=== PATIENT | female | born 1985 | race African-American/Black ===

== ENCOUNTER 2018-01-22 07:54 | Emergency (ER) | payer SELFPAY ==
[2018-01-22 08:39] LABS: Absolute Monocytes 0.6 K/uL (0.1-1.3); Absolute Neutrophil 9.1 K/uL (1.8-8.0); Basophils % 0.5 % (0-1.3); Eosinophils % 0.1 % (0-4.4); Hematocrit 40.3 % (36.0-45.0); Lymphocytes % 9.4 % (15.3-44.8); MCH 28.5 pg (27.0-35.0); MCV 86.7 fL (80-100); MPV 9.9 fL (7.6-11.3); Monocytes % 5.9 % (3.3-12.3); RBC Red Blood Cell Count 4.64 M/uL (3.86-4.86)
[2018-01-22] MEDS ORDERED: FENTANYL CITR 100 MCG/2 ML ONE (08:43)
[2018-01-22] MEDS ORDERED: NA CHLORIDE 0.9% 1,000 ML ONE (08:44)
[2018-01-22 08:53] LABS: Urine Blood NEGATIVE (NEG); Urine Glucose NEGATIVE (NEG); Urine Protein NEGATIVE (NEG)
[2018-01-22 08:55] LABS: Bicarbonate 21 mEq/L (21-31); Glucose Level 119 mg/dL (65-120); Lipase 20 U/L (22-51); Potassium 4.2 mEq/L (3.6-5.0); Sodium Level 135 mEq/L (135-145)
[2018-01-22 09:01] LABS: ALT/SGPT 57 IU/L (10-60); AST/SGOT 35 IU/L (10-42); Alkaline Phosphatase 39 IU/L (42-121); BUN Blood Urea Nitrogen 12 mg/dL (6-20); Bilirubin Direct 0.1 mg/dL (0-0.2); Bilirubin Total 0.5 mg/dL (0.3-1.2); Glomerular Filtration Rate > 90 mL/min (=/>90); Protein, Total 7.8 g/dL (6.0-8.3)
[2018-01-22] MEDS ORDERED: ONDANSETRON 4 MG/2 ML VIAL ONE (09:24)
[2018-01-22 09:58] LABS: Urine Bacteria <20 /HPF (<20); Urine Culture Reflex Order NOT NEEDED; Urine RBC NONE SEEN /HPF (NONE SEEN)
--- NOTE | 2018-01-22 10:20 | RAD REPORT ---
EXAM DESCRIPTION: CT - Angio Aorta For Dissection - 01/22/2018 9:50 am CLINICAL HISTORY: Chest pain, epigastric pain, nausea COMPARISON: None. TECHNIQUE: Dynamically enhanced 3 mm thick images of the chest, abdomen, and upper pelvis were obtai faith during administration of approximately 150mL Isovue 370 IV contrast. Sagittal and coronal reconst ruction images were generated and reviewed. Exam utilizes a protocol to evaluate entire course of the aorta. All CT scans are performed using dose optimization technique as appropriate and may include automated exposure control or mA/KV adjustment according to patient size. FINDINGS: Aorta is normal in diameter with no dissection or other acute aortic findings. Reconstruct ion images show no significant findings. No pulmonary artery abnormality seen. No cardiomegaly, pericardial thickening or pericardial effusion . No mass or infiltrate in the lung parenchyma. No pleural thickening, pleural effusion or pneumothorax . No abnormal mediastinal or hilar mass or lymphadenopathy seen. No chest wall mass or abnormal axillar y lymphadenopathy. Celiac, SMA and renal arteries show no suspicious findings. Liver shows a fatty infiltration pattern but no focal liver lesion identified. The spleen, pancreas, gallbladder, biliary tree, adrenal glands and kidneys are unremarkable. Gallstones can be occult. No suspicion for an active gallbladder proce ss. No mass or abnormal lymphadenopathy. No free air, pneumatosis or focal inflammatory stranding. No dilated bowel or focal bowel wall thickening. Acute appendicitis is not suspected. There is a trac e amount of fluid adjacent to the right ovary and tip of the appendix. This may be a leaking right ov megha cysts. Appendicitis is not suspected. Uterus and left ovary show no significant finding. No uri nary bladder abnormality. No acute bone findings seen. IMPRESSION: Negative CT scan of the aorta. No significant finding in the chest. Fatty infiltration of the liver. No acute process identifiable in the gallbladder or solid abdominal visceral. Trace amount of fluid adjacent to the right ovary is probably from a leaking ovarian cyst. Appendicit is is not suspected.
--- NOTE | 2018-01-22 10:55 | EDPHYS ---
Physician Documentation [facility] Name: Larry Morton Age: 32 yrs Sex: Female : 1985 Arrival Date: 01/22/2018 Time: 07:55 Bed 5 Private MD: Dakota Soria V ED Physician Gerardo Benavidez HPI: 01/22 10:51 This 32 yrs old Black Female presents to ER via Ambulatory with complaints of Abdominal gs Pain, Chest Pain. 10:51 The patient or guardian reports chest pain that is located primarily in the substernal gs area. The pain radiates to abdomen. Associated signs and symptoms: Pertinent positives: shortness of breath. The chest pain is described as sharp. Duration: The patient or guardian reports a single episode, that is still ongoing. Modifying factors: The symptoms are alleviated by nothing. the symptoms are aggravated by nothing. Severity of pain: At its worst the pain was severe in the emergency department the pain is unchanged. The patient has experienced similar episodes in the past, several times. Historical: - Allergies: 08:04 No Known Allergies; ss - Home Meds: 08:04 None [Active]; ss - PMHx: 08:04 None; ss - PSHx: 08:04 None; ss - Social history:: Smoking status: Patient/guardian denies using tobacco. ROS: 10:51 All other systems are negative. gs Exam: 10:51 Head/Face: Normocephalic, atraumatic. Eyes: Pupils equal round and reactive to light, gs extra-ocular motions intact. Lids and lashes normal. Conjunctiva and sclera are non-icteric and not injected. Cornea within normal limits. Periorbital areas with no swelling, redness, or edema. ENT: Nares patent. No nasal discharge, no septal abnormalities noted. Tympanic membranes are normal and external auditory canals are clear. Oropharynx with no redness, swelling, or masses, exudates, or evidence of obstruction, uvula midline. Mucous membranes moist. Neck: Trachea midline, no thyromegaly or masses palpated, and no cervical lymphadenopathy. Supple, full range of motion without nuchal rigidity, or vertebral point tenderness. No Meningismus. Chest/axilla: Normal chest wall appearance and motion. Nontender with no deformity. No lesions are appreciated. Respiratory: Lungs have equal breath sounds bilaterally, clear to auscultation and percussion. No rales, rhonchi or wheezes noted. No increased work of breathing, no retractions or nasal flaring. Back: No spinal tenderness. No costovertebral tenderness. Full range of motion. Skin: Warm, dry with normal turgor. Normal color with no rashes, no lesions, and no evidence of cellulitis. MS/ Extremity: Pulses equal, no cyanosis. Neurovascular intact. Full, normal range of motion. Neuro: Awake and alert, GCS 15, oriented to person, place, time, and situation. Cranial nerves II-XII grossly intact. Motor strength 5/5 in all extremities. Sensory grossly intact. Cerebellar exam normal. Normal gait. 10:51 Constitutional: The patient appears alert, awake. 10:51 Cardiovascular: Rate: tachycardic, Rhythm: regular, Pulses: no pulse deficits are appreciated, Heart sounds: normal, Edema: is not appreciated. 10:51 ECG was reviewed by the Attending Physician. 10:51 Abdomen/GI: Inspection: abdomen appears normal, Palpation: moderate abdominal tenderness, in the right upper quadrant and left upper quadrant. Vital Signs: 08:04 BP 142 / 116; Pulse 136; Resp 22; Temp 99.6(O); Pulse Ox 100% on R/A; Weight 130.63 kg; ss Height 5 ft. 4 in. (162.56 cm); Pain 10/10; 08:08 BP 117 / 71; Pulse 130; ss 09:00 BP 126 / 76; Pulse 100; Resp 18; Pulse Ox 100% on R/A; Pain 5/10; hb 10:04 BP 125 / 85; Pulse 102; Resp 17; Pulse Ox 100% on R/A; hb 08:04 Body Mass Index 49.43 (130.63 kg, 162.56 cm) MDM: 08:09 Patient medically screened. 10:51 Differential diagnosis: coronary artery disease pancreatitis, pericarditis, pneumonia, gs thoracic aortic disection. Data reviewed: vital signs, nurses notes. Response to treatment: the patient's symptoms have markedly improved after treatment, the patient's symptoms have resolved after treatment, and as a result, I will discharge patient. 01/22 08:10 Order name: Basic Metabolic Panel; Complete Time: 10:11 01/22 08:10 Order name: CBC with Diff; Complete Time: 10:11 01/22 08:10 Order name: Hepatic Function; Complete Time: 10: 01/22 08:10 Order name: Lipase; Complete Time: 10: 01/22 08:10 Order name: Urine Microscopic Only; Complete Time: 10: 01/22 08:10 Order name: Troponin (emerg Dept Use Only); Complete Time: 10: 01/22 08:10 Order name: Urine Test (obtain specimen); Complete Time: 08:38 01/22 08:10 Order name: IV Saline Lock; Complete Time: 08:38 01/22 08:10 Order name: CT Aorta for Dissection; Complete Time: 10:29 gs 01/22 08:37 Order name: Urine Dipstick--Ancillary (enter results); Complete Time: 10: 01/22 08:37 Order name: Urine --Ancillary (enter results); Complete Time: 10: 01/22 09:14 Order name: EKG Electrocardiogram; Complete Time: 10: [facility] 01/22 08:10 Order name: Labs collected and sent; Complete Time: 08:39 01/22 08:10 Order name: Urine Dipstick-Ancillary (obtain specimen); Complete Time: 08:39 gs EC:51 Rate is 116 beats/min. Rhythm is regular, Sinus tachycardia. QRS interval is normal. QT gs interval is normal. T waves are Flattened. No ST changes noted. Clinical impression: Abnormal EKG without significant change. Interpreted by me. Administered Medications: 08:26 Drug: fentaNYL (PF) 50 mcg Route: IVP; Site: right antecubital; hb 09:00 Follow up: Response: No adverse reaction hb 08:26 Drug: NS 0.9% 1000 ml Route: IV; Rate: 1 bolus; Site: right antecubital; hb Disposition: 01/22/18 10:54 Discharged to Home. Impression: Chest pain, unspecified, Abdominal and pelvic pain. - Condition is Stable. - Discharge Instructions: Nonspecific Chest Pain, Abdominal Pain, Adult, Fviy-oh-Iyug. - Medication Reconciliation Form, Thank You Letter, Antibiotic Education, Prescription Opioid Use form. - Follow up: Private Physician; When: 2 - 3 days; Reason: Re-evaluation by your physician. Signatures: Dispatcher [employer] EDBianca Ward, RN RN ss Gale Meléndez, RN RN Gerardo Garza MD MD gs
--- NOTE | 2018-01-22 10:55 | ER ---
Nurse's Notes [facility] Name: Larry Morton Age: 32 yrs Sex: Female : 1985 Arrival Date: 01/22/2018 Time: 07:55 Bed 5 Private MD: Dakota Soria V Diagnosis: Chest pain, unspecified;Abdominal and pelvic pain Presentation: 01/22 08:03 Presenting complaint: Patient states: severe epigastric discomfort that radiates up ss into chest that began at 0200 this morning with nausea. Transition of care: patient was not received from another setting of care. Onset of symptoms was January 22, 2018. Care prior to arrival: None. 08:03 Method Of Arrival: Ambulatory ss 08:03 Acuity: CELESTINO 2 ss Historical: - Allergies: 08:04 No Known Allergies; ss - Home Meds: 08:04 None [Active]; ss - PMHx: 08:04 None; ss - PSHx: 08:04 None; ss - Social history:: Smoking status: Patient/guardian denies using tobacco. Screenin:20 Abuse screen: Denies threats or abuse. Denies injuries from another. Nutritional hb screening: No deficits noted. Tuberculosis screening: No symptoms or risk factors identified. Fall Risk None identified. Assessment: 08:20 General: Appears in no apparent distress. uncomfortable, Behavior is calm, cooperative. hb Pain: Pain currently is 7 out of 10 on a pain scale. Neuro: Level of Consciousness is awake, alert, obeys commands, Oriented to person, place, time, situation. Cardiovascular: Capillary refill < 3 seconds Patient's skin is warm and dry. Respiratory: Airway is patent Respiratory effort is even, unlabored, Respiratory pattern is regular, symmetrical, Breath sounds are clear bilaterally. GI: Abdomen is obese, Bowel sounds present X 4 quads. Abd is soft and non tender X 4 quads. Reports lower abdominal pain, upper abdominal pain. : No signs and/or symptoms were reported regarding the genitourinary system. EENT: No signs and/or symptoms were reported regarding the EENT system. Derm: No signs and/or symptoms reported regarding the dermatologic system. Skin is pink, warm \T\ dry. Musculoskeletal: No signs and/or symptoms reported regarding the musculoskeletal system. 09:20 Reassessment: Patient appears in no apparent distress at this time. Patient and/or hb family updated on plan of care and expected duration. Pain level reassessed. Patient is alert, oriented x 3, equal unlabored respirations, skin warm/dry/pink. 10:09 Reassessment: Patient appears in no apparent distress at this time. No changes from hb previously documented assessment. Patient and/or family updated on plan of care and expected duration. Pain level reassessed. Patient is alert, oriented x 3, equal unlabored respirations, skin warm/dry/pink. Vital Signs: 08:04 BP 142 / 116; Pulse 136; Resp 22; Temp 99.6(O); Pulse Ox 100% on R/A; Weight 130.63 kg; ss Height 5 ft. 4 in. (162.56 cm); Pain 10/10; 08:08 BP 117 / 71; Pulse 130; ss 09:00 BP 126 / 76; Pulse 100; Resp 18; Pulse Ox 100% on R/A; Pain 5/10; hb 10:04 BP 125 / 85; Pulse 102; Resp 17; Pulse Ox 100% on R/A; hb 08:04 Body Mass Index 49.43 (130.63 kg, 162.56 cm) ED Course: 07:55 Patient arrived in ED. as 07:55 Dakota Soria MD is Private Physician. as 08:00 Gerardo Benavidez MD is Attending Physician. gs 08:04 Triage completed. ss 08:04 Arm band placed on right wrist. ss 08:20 Patient has correct armband on for positive identification. Placed in gown. Bed in low hb position. Call light in reach. Side rails up X 1. 08:20 Inserted saline lock: 20 gauge in right antecubital area, using aseptic technique. hb Blood collected. 08:22 Gale Meléndez, RN is Primary Nurse. hb 09:48 CT completed. Patient tolerated procedure well. Patient moved to CT via wheelchair. sj Patient moved back from CT. 09:51 CT Aorta for Dissection In Process Unspecified. EDMS Administered Medications: 08:26 Drug: fentaNYL (PF) 50 mcg Route: IVP; Site: right antecubital; hb 09:00 Follow up: Response: No adverse reaction hb 08:26 Drug: NS 0.9% 1000 ml Route: IV; Rate: 1 bolus; Site: right antecubital; hb Outcome: 10:54 Discharge ordered by . 11:20 Patient left the ED. Signatures: Dispatcher [employer] Silvia Noel Amelia as Smirch, Shelby, RN RN Gale Meléndez RN RN hb Starr, Gregory, MD MD gs Corrections: (The following items were deleted from the chart) 08:08 08:03 Acuity: CELESTINO 3 [facility]
[2018-01-22 11:31] VITALS: TEMP 99.6; O2SAT 100
[2018-01-22 11:35] VITALS: BP 125/85
--- NOTE | 2018-01-23 07:39 | EKG ---
Test Date: 2018-01-22 Test Time: 08:08:43 Pharmacist In Charge: RONNELL MEASUREMENT RESULTS: Intervals: Rate: 116 VA: 138 QRSD: 70 QT: 310 QTc: 430 Printer: P: 50 VA: 138 QRS: 32 T: 17 INTERPRETIVE STATEMENTS: Sinus tachycardia Cannot rule out Anterior infarct, age undetermined Abnormal ECG Compared to ECG 03/24/2016 15:13:22 Myocardial infarct finding now present Sinus rhythm no longer present Electronically Signed On 01-23-18 07:35:17 CDT by Bishnu Borrero
== END 2018-01-22 11:20 | disposition home or self-care (01) ==
LOC: ER 07:54
DX: R10.2 Pelvic and perineal pain (principal)
CPT/HCPCS: 36415; 71275; 74175; 80048; 80076; 81003; 81015; 81025; 83690; 84484; 85025; 93005; 96374; 99284; J2405; J3010; J7030; Q9967

== ENCOUNTER 2018-04-10 11:52 | Emergency (ER) | payer SELFPAY ==
[2018-04-10 12:34] LABS: Absolute Lymphocytes (CBC) 1.7 K/uL (0.7-4.9); Absolute Monocytes 0.5 K/uL (0.1-1.3); Absolute Neutrophil 4.1 K/uL (1.8-8.0); Basophils % 0.8 % (0-1.3); Eosinophils % 0.3 % (0-4.4); Hematocrit 39.7 % (36.0-45.0); Lymphocytes % 26.7 % (15.3-44.8); MCH 28.7 pg (27.0-35.0); MCV 88.6 fL (80-100); MPV 9.9 fL (7.6-11.3); Monocytes % 8.4 % (3.3-12.3); RBC Red Blood Cell Count 4.48 M/uL (3.86-4.86)
[2018-04-10 12:42] LABS: Urine Blood TRACE (NEG); Urine Glucose NEGATIVE (NEG); Urine Protein NEGATIVE (NEG); Urine Specific Gravity >1.030 (1.005-1.030); Urine pH 5.5 (5.0-7.0)
--- NOTE | 2018-04-10 13:09 | RAD REPORT ---
EXAM DESCRIPTION: US - Transvaginal OB - 04/10/2018 12:47 pm CLINICAL HISTORY: Positive study, abdominal and pelvic pain and cramping, vaginal bleeding Preliminary findings provided at the time of the study. COMPARISON: No relevant comparison FINDINGS: A very small oval fluid collection is present in the fundal portion of the endometrial cav ity. This is believed to be an early gestational sac. No yolk sac or pole identifiable. Average sac diameter corresponds to a 5 week 2 day age. Within the uterus no mass or hematoma identifiable. No fluid or blood in the cul-de-sac. Cervical canal appears to be closed. A 4.2 centimeter thin-walled anechoic right ovarian cyst is present. No suspicious right adnexal abno rmality. Left ovary is unremarkable. IMPRESSION: Oval fluid collection in the fundal endometrial cavity believed to be a 5 week 2 day ges tational sac. No pole or yolk sac identifiable at this time. A 4.2 centimeter benign right ovarian cyst is present. Follow-up sonography can be performed if beta HCG values show progressive .
[2018-04-10 13:49] LABS: BUN Blood Urea Nitrogen 8 mg/dL (7-18); Bicarbonate 25 mmol/L (21-32); Glucose Level 97 mg/dL (74-106); Potassium 3.8 mmol/L (3.5-5.1); Sodium Level 135 mmol/L (136-145)
--- NOTE | 2018-04-10 13:57 | EDPHYS ---
Physician Documentation [facility] Name: Larry Morton Age: 32 yrs Sex: Female : 1985 Arrival Date: 04/10/2018 Time: 11:55 Bed 20 Private MD: Dakota Soria V ED Physician Jamal Alvarez HPI: 04/10 13:17 This 32 yrs old Black Female presents to ER via Ambulatory with complaints of Abdominal snw Pain - 5WKS PG. 13:18 The patient presents with vaginal bleeding that is spotting. Onset: The snw symptoms/episode began/occurred suddenly, 2 day(s) ago, and improved. Associated signs and symptoms: Pertinent positives: cramping, vaginal bleeding. Severity of symptoms: At their worst the symptoms were mild. The patient is sexually active, reportedly has a single partner. The patient has not experienced similar symptoms in the past. The patient has been recently seen by a physician: Dr. agrawal. 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 - Social history:: Smoking status: Patient/guardian denies using tobacco. - Ebola Screening: : Patient denies exposure to infectious person Patient denies travel to an Ebola-affected area in the 21 days before illness onset. ROS: 13:04 Constitutional: Negative for fever, chills, and weight loss, Eyes: Negative for injury, snw pain, redness, and discharge, ENT: Negative for injury, pain, and discharge, Neck: Negative for injury, pain, and swelling, Cardiovascular: Negative for chest pain, palpitations, and edema, Respiratory: Negative for shortness of breath, cough, wheezing, and pleuritic chest pain, Back: Negative for injury and pain, : Negative for injury, discharge, and swelling, lower suprapubic cramping, sharp in nature with light pink bleeding/spotting. No spotting today. Saw Dr. Agrawal yesterday MS/Extremity: Negative for injury and deformity, Skin: Negative for injury, rash, and discoloration, Neuro: Negative for headache, weakness, numbness, tingling, and seizure. 13:04 Abdomen/GI: Negative for abdominal pain, nausea, vomiting, diarrhea, and constipation. Exam: 13:04 Head/Face: Normocephalic, atraumatic. Eyes: Pupils equal round and reactive to light, snw extra-ocular motions intact. Lids and lashes normal. Conjunctiva and sclera are non-icteric and not injected. Cornea within normal limits. Periorbital areas with no swelling, redness, or edema. ENT: Nares patent. No nasal discharge, no septal abnormalities noted. Tympanic membranes are normal and external auditory canals are clear. Oropharynx with no redness, swelling, or masses, exudates, or evidence of obstruction, uvula midline. Mucous membranes moist. Neck: Trachea midline, no thyromegaly or masses palpated, and no cervical lymphadenopathy. Supple, full range of motion without nuchal rigidity, or vertebral point tenderness. No Meningismus. Chest/axilla: Normal chest wall appearance and motion. Nontender with no deformity. No lesions are appreciated. Cardiovascular: Regular rate and rhythm with a normal S1 and S2. No gallops, murmurs, or rubs. Normal PMI, no JVD. No pulse deficits. Respiratory: Lungs have equal breath sounds bilaterally, clear to auscultation and percussion. No rales, rhonchi or wheezes noted. No increased work of breathing, no retractions or nasal flaring. Back: No spinal tenderness. No costovertebral tenderness. Full range of motion. Skin: Warm, dry with normal turgor. Normal color with no rashes, no lesions, and no evidence of cellulitis. MS/ Extremity: Pulses equal, no cyanosis. Neurovascular intact. Full, normal range of motion. Neuro: Awake and alert, GCS 15, oriented to person, place, time, and situation. Cranial nerves II-XII grossly intact. Motor strength 5/5 in all extremities. Sensory grossly intact. Cerebellar exam normal. Normal gait. 13:04 Constitutional: The patient appears alert, awake, obese. 13:04 Abdomen/GI: Inspection: obese Bowel sounds: normal, Palpation: mild abdominal tenderness, in the suprapubic area. Vital Signs: 12:02 Resp 16; Weight 130.18 kg; Height 5 ft. 4 in. (162.56 cm); Pain 10/10; ss 12:22 BP 126 / 75; Pulse 80; Resp 18; Temp 98.2(O); Pulse Ox 98% on R/A; dh3 13:06 BP 118 / 72; Pulse 85; Resp 18; Pulse Ox 99% on R/A; dh3 13:28 BP 122 / 62; Pulse 82; Resp 16; Pulse Ox 99% ; sv 12:02 Body Mass Index 49.26 (130.18 kg, 162.56 cm) MDM: 12:03 Patient medically screened. snw 14:12 Data reviewed: vital signs, nurses notes. Data interpreted: Pulse oximetry: on room air snw is 99 %. Interpretation: normal. Counseling: I had a detailed discussion with the patient and/or guardian regarding: the historical points, exam findings, and any diagnostic results supporting the discharge/admit diagnosis, lab results, radiology results, the need for outpatient follow up, to return to the emergency department if symptoms worsen or persist or if there are any questions or concerns that arise at home. Special discussion: Based on the history and exam findings, there is no indication for further emergent testing or inpatient evaluation. I discussed with the patient/guardian the need to see the OB Gyne specialist for further evaluation of the symptoms. 04/10 12:06 Order name: Quantitative Hcg; Complete Time: 14:16 snw 04/10 12:06 Order name: Abo/rh Typing; Complete Time: 13:33 snw 04/10 12:06 Order name: Basic Metabolic Panel; Complete Time: 14:25 snw 04/10 12:06 Order name: CBC with Diff; Complete Time: 12:56 snw 04/10 12:41 Order name: Urine Dipstick--Ancillary (enter results); Complete Time: 12:56 em1 04/10 12:41 Order name: Urine --Ancillary (enter results); Complete Time: 12:56 em1 04/10 12:06 Order name: Urine Test (obtain specimen); Complete Time: 12:28 snw 04/10 12:06 Order name: IV Saline Lock; Complete Time: 12:27 snw 04/10 12:06 Order name: Labs collected and sent; Complete Time: 12:28 snw 04/10 12:06 Order name: NPO; Complete Time: 12:28 snw 04/10 12:06 Order name: Urine Dipstick-Ancillary (obtain specimen); Complete Time: 12:28 snw 04/10 12:06 Order name: US Transvaginal Ob; Complete Time: 13:15 snw Administered Medications: No medications were administered Disposition: 04/10/18 13:56 Discharged to Home. Impression: related conditions, unspecified, first trimester, Threatened . - Condition is Stable. - Discharge Instructions: Medicines During , Threatened Miscarriage, First Trimester of , Pelvic Rest. - Prescriptions for Vitamin 27- 0.8 mg Oral Tablet - take 1 tablet by ORAL route once daily; 60 tablet. - Medication Reconciliation Form, Thank You Letter, Antibiotic Education, Prescription Opioid Use form. - Follow up: Karsten Agrawal MD; When: 2 - 3 days; Reason: Recheck today's complaints, Continuance of care, Re-evaluation by your physician. Follow up: Emergency Department; When: As needed; Reason: Worsening of condition. Addendum: 04/12/2018 14:44 Co-signature as Attending Physician, Jamal Alvarez MD I agree with the assessment and w a plan of care. Signatures: Dispatcher [employer] Shonda Hewitt RN RN sv Therrien, Shelly, YOGA COORDINATOR-C YOGA COORDINATOR-Bianca Sandra RN RN ss Appiah, William, MD MD wa Corrections: (The following items were deleted from the chart) 04/10 14:29 13:56 04/10/2018 13:56 Discharged to Home. Impression: related conditions, sv unspecified, first trimester; Threatened . Condition is Stable. Forms are Medication Reconciliation Form, Thank You Letter, Antibiotic Education, Prescription Opioid Use. Follow up: Karsten Agrawal; When: 2 - 3 days; Reason: Recheck today's complaints, Continuance of care, Re-evaluation by your physician. Follow up: Emergency Department; When: As needed; Reason: Worsening of condition. snw
--- NOTE | 2018-04-10 13:57 | ER ---
Nurse's Notes [facility] Name: Larry Morton Age: 32 yrs Sex: Female : 1985 Arrival Date: 04/10/2018 Time: 11:55 Bed 20 Private MD: Dakota Soria V Diagnosis: related conditions, unspecified, first trimester;Threatened Presentation: 04/10 12:01 Presenting complaint: Patient states: lower abd cramping and light spotting since ss yesterday. Pt reports she is no longer spotting. Pt had confirmed yesterday at Dr. Santiago's office, reports she is 5 weeks . Transition of care: patient was not received from another setting of care. Onset of symptoms was April 09, 2018. Risk Assessment: Do you want to hurt yourself or someone else? Patient reports no desire to harm self or others. Initial Sepsis Screen: Does the patient meet any 2 criteria? No. Patient's initial sepsis screen is negative. Does the patient have a suspected source of infection? No. Patient's initial sepsis screen is negative. Care prior to arrival: None. 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 - Social history:: Smoking status: Patient/guardian denies using tobacco. - Ebola Screening: : Patient denies exposure to infectious person Patient denies travel to an Ebola-affected area in the 21 days before illness onset. Screenin:20 Abuse screen: Denies threats or abuse. Denies injuries from another. Nutritional sv screening: No deficits noted. Tuberculosis screening: No symptoms or risk factors identified. Fall Risk None identified. Assessment: 12:20 General: Appears in no apparent distress. comfortable, well developed, Behavior is sv calm, cooperative, appropriate for age. Pain: Complains of pain in suprapubic area Pain currently is 10 out of 10 on a pain scale. Quality of pain is described as crampy, Is intermittent. Neuro: Level of Consciousness is awake, alert, obeys commands, Oriented to person, place, time, situation, Moves all extremities. Full function Gait is steady. Respiratory: Respiratory effort is even, unlabored, Respiratory pattern is regular, symmetrical. GI: Abdomen is obese, Abd is soft X 4 quads Abdomen is tender to palpation in suprapubic area Reports cramping. Derm: Skin is normal. 13:05 Reassessment: Patient appears in no apparent distress at this time. No changes from sv previously documented assessment. Patient and/or family updated on plan of care and expected duration. Pain level reassessed. Patient is alert, oriented x 3, equal unlabored respirations, skin warm/dry/pink. 14:26 Reassessment: HCG was just resulted. sv 14:28 Reassessment: Patient appears in no apparent distress at this time. No changes from sv previously documented assessment. Patient and/or family updated on plan of care and expected duration. Pain level reassessed. Patient is alert, oriented x 3, equal unlabored respirations, skin warm/dry/pink. Vital Signs: 12:02 Resp 16; Weight 130.18 kg; Height 5 ft. 4 in. (162.56 cm); Pain 10/10; ss 12:22 BP 126 / 75; Pulse 80; Resp 18; Temp 98.2(O); Pulse Ox 98% on R/A; dh3 13:06 BP 118 / 72; Pulse 85; Resp 18; Pulse Ox 99% on R/A; dh3 13:28 BP 122 / 62; Pulse 82; Resp 16; Pulse Ox 99% ; sv 12:02 Body Mass Index 49.26 (130.18 kg, 162.56 cm) ED Course: 11:55 Patient arrived in ED. sb2 11:56 Dakota Soria MD is Private Physician. sb2 12:02 Triage completed. ss 12:02 Arm band placed on right wrist. ss 12:03 [facility] snw 12:03 Jamal Alvarez MD is Attending Physician. snw 12:20 Patient has correct armband on for positive identification. sv 12:22 Initial lab(s) drawn, by me, sent to lab. Inserted saline lock: 18 gauge in right dh3 antecubital area, using aseptic technique. Blood collected. 12:31 Deepti, Shonda, RN is Primary Nurse. sv 12:32 Patient taken to ultrasound. via wheelchair. aa4 12:37 US Transvaginal Ob In Process Unspecified. EDMS 12:55 Ultrasound completed. Patient tolerated well. Patient moved back from ultrasound. lc3 13:54 Karsten Santiago MD is Referral Physician. snw 14:28 No provider procedures requiring assistance completed. IV discontinued, intact, sv bleeding controlled, No redness/swelling at site. Pressure dressing applied. Administered Medications: No medications were administered Outcome: 13:56 Discharge ordered by . snw 14:29 Discharged to home ambulatory. sv 14:29 Condition: stable 14:29 Discharge instructions given to patient, Instructed on discharge instructions, follow up and referral plans. medication usage, Demonstrated understanding of instructions, follow-up care, medications, Prescriptions given X 1. 14:29 Patient left the ED. sv Signatures: Dispatcher [employer] EDMS Shonda Tatum, RN RN Fozia Avila, NET WEB APPLICATION DEVELOPER-C NET WEB APPLICATION DEVELOPER-Csnw Sydnie Noel aa4 Bianca Quan, ISMAEL RN Lashonda Pack Deanna 3 Nelda Schilling 2
[2018-04-10 14:15] LABS: HCG, Quantitative 6578 mIU/mL (1-3)
[2018-04-10 16:20] VITALS: TEMP 98.2
[2018-04-10 16:21] VITALS: O2SAT 99
[2018-04-10 16:22] VITALS: BP 122/62
== END 2018-04-10 14:29 | disposition home or self-care (01) ==
LOC: ER 11:52
DX: O20.0 Threatened abortion (principal); Z3A.01 Less than 8 weeks gestation of pregnancy
CPT/HCPCS: 36415; 76817; 80048; 81003; 81025; 84702; 85025; 86900; 86901; 99284

== ENCOUNTER 2019-03-24 20:29 | Emergency (ER) | payer SELFPAY ==
[2019-03-24] MEDS ORDERED: ONDANSETRON 4 MG/2 ML VIAL ONE (22:03)
[2019-03-24] MEDS ORDERED: NA CHLORIDE 0.9% 1,000 ML ONE (22:03)
[2019-03-24] MEDS ORDERED: KETOROLAC 30 MG/ML INJ ONE (22:03)
[2019-03-24 22:12] LABS: Absolute Lymphocytes (CBC) 2.4 K/uL (0.7-4.9); Absolute Monocytes 0.6 K/uL (0.1-1.3); Absolute Neutrophil 3.5 K/uL (1.8-8.0); Eosinophils % 1.5 % (0-4.4); Hematocrit 39.4 % (36.0-45.0); Lymphocytes % 35.8 % (15.3-44.8); MPV 10.1 fL (7.6-11.3); Monocytes % 9.2 % (3.3-12.3); RBC Red Blood Cell Count 4.46 M/uL (3.86-4.86)
[2019-03-24 22:22] LABS: BUN Blood Urea Nitrogen 10 mg/dL (7-18); Bicarbonate 24 mmol/L (21-32); Glucose Level 98 mg/dL (74-106); Sodium Level 142 mmol/L (136-145)
--- NOTE | 2019-03-24 23:56 | ER ---
Nurse's Notes [facility] Name: Larry Morton Age: 33 yrs Sex: Female : 1985 Arrival Date: 03/24/2019 Time: 20:34 Bed 5 Private MD: Dakota Soria V Diagnosis: Fall due to bumping against object;Strain of muscle and tendon of back wall of thorax;Low back pain Presentation: 03/24 20:54 Presenting complaint: Patient states: Pt reports she fell off a foot stool and ea aggravated her left side, pt reports she landed on her left side, denies LOC, or hitting her head. Transition of care: patient was not received from another setting of care. Onset of symptoms was March 24, 2019. Risk Assessment: Do you want to hurt yourself or someone else? Patient reports no desire to harm self or others. Initial Sepsis Screen: Does the patient meet any 2 criteria? No. Patient's initial sepsis screen is negative. Does the patient have a suspected source of infection? No. Patient's initial sepsis screen is negative. Care prior to arrival: None. 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 - Ebola Screening: : No symptoms or risks identified at this time. - Social history:: Smoking status: Patient/guardian denies using tobacco. - Family history:: not pertinent. Screenin:51 Abuse screen: Denies threats or abuse. Denies injuries from another. Nutritional mg2 screening: No deficits noted. Tuberculosis screening: No symptoms or risk factors identified. Fall Risk Fall in past 12 months (25 points). Assessment: 20:52 General: Appears in no apparent distress. comfortable, Behavior is calm, cooperative. mg2 Pain: Complains of pain in back and buttocks Pain does not radiate. Pain currently is 7 out of 10 on a pain scale. Quality of pain is described as aching, Pain began suddenly, 3 hours ago. Is intermittent. Neuro: Level of Consciousness is awake, alert, obeys commands, Oriented to person, place, time, situation. Cardiovascular: Capillary refill < 3 seconds Patient's skin is warm and dry. Respiratory: Airway is patent Respiratory effort is even, unlabored, Respiratory pattern is regular, symmetrical. GI: No signs and/or symptoms were reported involving the gastrointestinal system. : No signs and/or symptoms were reported regarding the genitourinary system. EENT: No signs and/or symptoms were reported regarding the EENT system. Derm: Skin is intact, is healthy with good turgor, Skin is pink, warm \T\ dry. normal. Musculoskeletal: Circulation, motion, and sensation intact. Capillary refill < 3 seconds, Reports pain in back and buttocks. 22:46 Reassessment: patient sent to ct scan via wheelchair. mg2 23:01 Reassessment: Patient appears in no apparent distress at this time. Patient and/or tl2 family updated on plan of care and expected duration. Pain level reassessed. Patient is alert, oriented x 3, equal unlabored respirations, skin warm/dry/pink. pt returned from CT, no questions or concerns at this time. 03/25 00:08 Reassessment: Patient states feeling better. Patient states symptoms have improved. mg2 Vital Signs: 0603 20:54 BP 140 / 100; Pulse 90; Resp 18; Temp 98.4; Pulse Ox 99% on R/A; Weight 108.86 kg; ea Height 5 ft. 4 in. (162.56 cm); Pain 10/10; 21:54 BP 120 / 80; Pulse 82; Resp 18; Pulse Ox 98% on R/A; tl2 23:40 BP 121 / 78; Pulse 80; Resp 18; Temp 98; Pulse Ox 100% on R/A; Pain 2/10; mg2 20:54 Body Mass Index 41.20 (108.86 kg, 162.56 cm) ea ED Course: 20:34 Patient arrived in ED. am2 20:34 Dakota Soria MD is Private Physician. am2 20:43 Pavel Schultz, ISMAEL is Primary Nurse. mg2 20:46 Luis Carlos Amos MD is Attending Physician. jase 20:51 Patient has correct armband on for positive identification. Pulse ox on. NIBP on. Door mg2 closed. Warm blanket given. 20:52 No provider procedures requiring assistance completed. mg2 20:54 Arm band placed on right wrist. Patient placed in an exam room, on a stretcher, on ea pulse oximetry. 20:56 Triage completed. ea 21:34 Radiology exam delayed due to lab results not completed at this time. (BUN/Creatinine) nj IV insertion attempt and/or patient not having appropriate IV at this time. 21:50 Initial lab(s) drawn, by me, sent to lab. T\T\S collected, blood band applied to patient. jp3 Inserted saline lock: 14 gauge 20 gauge in right antecubital area, using aseptic technique. Blood collected. 22:05 Marcia King FNP-C is [facility]. kb 22:31 Radiology exam delayed due to test not completed at this time. vm2 22:38 Urine collected: clean catch specimen, clear, mindy colored. jp3 23:56 Dakota Soria MD is Referral Physician. kb 03/25 00:08 IV discontinued, intact, bleeding controlled, No redness/swelling at site. Pressure mg2 dressing applied. Administered Medications: 03/24 21:55 Drug: NS 0.9% 1000 ml Route: IV; Rate: 1 bolus; Site: right antecubital; mg2 03/25 00:07 Follow up: Response: No adverse reaction; IV Status: Completed infusion; IV Intake: mg2 1000ml 03/24 21:56 Drug: TORadol 30 mg Route: IVP; Site: right antecubital; mg2 22:38 Follow up: Response: No adverse reaction; Marked relief of symptoms mg2 21:56 Drug: Zofran 4 mg Route: IVP; Site: right antecubital; mg2 22:38 Follow up: Response: No adverse reaction; Marked relief of symptoms mg2 Intake: 03/25 00:07 IV: 1000ml; Total: 1000ml. mg2 Outcome: 03/24 23:56 Discharge ordered by . kb 03/25 00:09 Discharged to home ambulatory, with family. mg2 Condition: stable Discharge instructions given to patient, Instructed on discharge instructions, follow up and referral plans. medication usage, Demonstrated understanding of instructions, follow-up care, medications, Prescriptions given X 3. 00:11 Patient left the ED. mg2 Signatures: Marcia King FNP-C FNP-Luis Carlos Hampton MD MD cha Knox, Taylor, RN RN tl2 Nazario Ratliff Amanda am2 Cathy Ramirez2 Yue Davis RN RN ea Pavel Schultz RN RN mg2 James Valero jp3 Corrections: (The following items were deleted from the chart) 00:09 03/24 20:52 Patient did not have IV access during this emergency room visit. mg2 mg2
--- NOTE | 2019-03-24 23:57 | EDPHYS ---
Physician Documentation [facility] Name: Larry Morton Age: 33 yrs Sex: Female : 1985 Arrival Date: 03/24/2019 Time: 20:34 Bed 5 Private MD: Dakota Soria V ED Physician Luis Carlos Amos HPI: 03/24 21:32 This 33 yrs old Black Female presents to ER via Ambulatory with complaints of Fall jase Injury - from ladder, Back Pain - left side pain. 21:32 Details of fall: The patient fell from an upright position, while standing. Onset: The jase symptoms/episode began/occurred just prior to arrival. Associated injuries: The patient sustained upper back injury, injury to the low back, injury to the chest, contusion, injury to the abdomen, specifically the posterior aspect of left lateral abdomen, anterior aspect of left lateral abdomen, left upper quadrant and left lower quadrant, contusion. 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 - Ebola Screening: : No symptoms or risks identified at this time. - Social history:: Smoking status: Patient/guardian denies using tobacco. - Family history:: not pertinent. ROS: 21:32 Constitutional: Negative for fever, chills, and weight loss, Eyes: Negative for injury, jase pain, redness, and discharge, ENT: Negative for injury, pain, and discharge, Neck: Negative for injury, pain, and swelling, Cardiovascular: Negative for chest pain, palpitations, and edema, Respiratory: Negative for shortness of breath, cough, wheezing, and pleuritic chest pain, : Negative for injury, bleeding, discharge, and swelling, MS/Extremity: Negative for injury and deformity, Skin: Negative for injury, rash, and discoloration, Neuro: Negative for headache, weakness, numbness, tingling, and seizure, Psych: Negative for depression, anxiety, suicide ideation, homicidal ideation, and hallucinations, Allergy/Immunology: Negative for hives, rash, and allergies, Endocrine: Negative for neck swelling, polydipsia, polyuria, polyphagia, and marked weight changes, Hematologic/Lymphatic: Negative for swollen nodes, abnormal bleeding, and unusual bruising. 21:32 Abdomen/GI: Positive for abdominal pain, of the posterior aspect of left lateral abdomen and anterior aspect of left lateral abdomen. 21:32 Back: Positive for decreased range of motion, pain at rest, pain with movement, flank pain, on the left. Exam: 21:32 Constitutional: This is a well developed, well nourished patient who is awake, alert, jase and in no acute distress. Head/Face: Normocephalic, atraumatic. Eyes: Pupils equal round and reactive to light, extra-ocular motions intact. Lids and lashes normal. Conjunctiva and sclera are non-icteric and not injected. Cornea within normal limits. Periorbital areas with no swelling, redness, or edema. ENT: Nares patent. No nasal discharge, no septal abnormalities noted. Tympanic membranes are normal and external auditory canals are clear. Oropharynx with no redness, swelling, or masses, exudates, or evidence of obstruction, uvula midline. Mucous membranes moist. Neck: Trachea midline, no thyromegaly or masses palpated, and no cervical lymphadenopathy. Supple, full range of motion without nuchal rigidity, or vertebral point tenderness. No Meningismus. Cardiovascular: Regular rate and rhythm with a normal S1 and S2. No gallops, murmurs, or rubs. Normal PMI, no JVD. No pulse deficits. Respiratory: Lungs have equal breath sounds bilaterally, clear to auscultation and percussion. No rales, rhonchi or wheezes noted. No increased work of breathing, no retractions or nasal flaring. Abdomen/GI: Soft, non-tender, with normal bowel sounds. No distension or tympany. No guarding or rebound. No evidence of tenderness throughout. Skin: Warm, dry with normal turgor. Normal color with no rashes, no lesions, and no evidence of cellulitis. MS/ Extremity: Pulses equal, no cyanosis. Neurovascular intact. Full, normal range of motion. Neuro: Awake and alert, GCS 15, oriented to person, place, time, and situation. Cranial nerves II-XII grossly intact. Motor strength 5/5 in all extremities. Sensory grossly intact. Cerebellar exam normal. Normal gait. Psych: Awake, alert, with orientation to person, place and time. Behavior, mood, and affect are within normal limits. 21:32 Chest/axilla: Inspection: normal, Palpation: is normal, Axilla: are normal, no acute changes, Breasts: are normal, Lymph nodes: lymphadenopathy is not appreciated. 21:32 Respiratory: Exam negative for acute changes. 21:32 Abdomen/GI: Exam negative for acute changes. 21:32 Back: pain, that is mild, that is moderate, ROM is painful, normal spinal alignment noted, CVA tenderness, that is mild, that is moderate, is noted on the left, muscle spasm, is not present, Straight leg raises: of both lower extremities does not illicit pain. Vital Signs: 20:54 BP 140 / 100; Pulse 90; Resp 18; Temp 98.4; Pulse Ox 99% on R/A; Weight 108.86 kg; ea Height 5 ft. 4 in. (162.56 cm); Pain 10/10; 21:54 BP 120 / 80; Pulse 82; Resp 18; Pulse Ox 98% on R/A; tl2 23:40 BP 121 / 78; Pulse 80; Resp 18; Temp 98; Pulse Ox 100% on R/A; Pain 2/10; mg2 20:54 Body Mass Index 41.20 (108.86 kg, 162.56 cm) ea MDM: 20:46 Patient medically screened. [facility] 21:32 Data reviewed: vital signs, nurses notes, lab test result(s), radiologic studies, CT jase scan. 22:05 Data interpreted: Pulse oximetry: on room air is 98 %. Interpretation: normal. kb 23:56 Counseling: I had a detailed discussion with the patient and/or guardian regarding: the kb historical points, exam findings, and any diagnostic results supporting the discharge/admit diagnosis, lab results, radiology results, the need for outpatient follow up, a family practitioner, to return to the emergency department if symptoms worsen or persist or if there are any questions or concerns that arise at home. 03/24 21:31 Order name: Basic Metabolic Panel [facility] 03/24 21:31 Order name: CBC with Diff [facility] 03/24 21:31 Order name: Creatinine for Radiology [facility] 03/24 21:31 Order name: Type And Screen [facility] 03/24 21:31 Order name: Urine Culture [facility] 03/24 21:38 Order name: Lipase [facility] 03/24 21:38 Order name: LFT's [facility] 03/24 22:23 Order name: Creatinine (Radiology Only); Complete Time: 22:23 [facility] 03/24 22:24 Order name: Basic Metabolic Panel; Complete Time: 22:23 [facility] 03/24 22:30 Order name: CBC with Automated Diff; Complete Time: 22:33 [facility] 03/24 22:44 Order name: Urine Dipstick--Ancillary (enter results) nm 03/24 22:44 Order name: Urine --Ancillary (enter results) nm 03/24 21:31 Order name: Labs collected and sent; Complete Time: 21:56 [facility] 03/24 21:31 Order name: Urine Dipstick-Ancillary (obtain specimen); Complete Time: 22:38 [facility] 03/24 21:31 Order name: Urine Test (obtain specimen); Complete Time: 22:38 [facility] Administered Medications: 21:55 Drug: NS 0.9% 1000 ml Route: IV; Rate: 1 bolus; Site: right antecubital; mg2 03/25 00:07 Follow up: Response: No adverse reaction; IV Status: Completed infusion; IV Intake: mg2 1000ml 03/24 21:56 Drug: TORadol 30 mg Route: IVP; Site: right antecubital; mg2 22:38 Follow up: Response: No adverse reaction; Marked relief of symptoms mg2 21:56 Drug: Zofran 4 mg Route: IVP; Site: right antecubital; mg2 22:38 Follow up: Response: No adverse reaction; Marked relief of symptoms mg2 Disposition: 03/25 07:29 Co-signature as Attending Physician, Luis Carlos Amos MD I agree with the assessment and [facility] plan of care. Disposition: 03/24/19 23:56 Discharged to Home. Impression: Fall due to bumping against object, Strain of muscle and tendon of back wall of thorax, Low back pain. - Condition is Stable. - Discharge Instructions: Back Pain, Adult, Musculoskeletal Pain, Back Injury Prevention, [id number], Back Pain, Adult, [id number]. - Prescriptions for Ibuprofen 600 mg Oral Tablet - take 1 tablet by ORAL route every 6 hours As needed take with food; 21 tablet. Tylenol- Codeine #3 300-30 mg Oral Tablet - take 2 tablet by ORAL route every 6 hours As needed; 30 tablet. Cyclobenzaprine 5 mg Oral Tablet - take 1 tablet by ORAL route 3 times per day As needed; 15 tablet. - Medication Reconciliation Form, Thank You Letter, Antibiotic Education, Prescription Opioid Use, Work release form form. - Follow up: Dakota Soria; When: 2 - 3 days; Reason: Recheck today's complaints, Continuance of care, Re-evaluation by your physician. - Problem is new. - Symptoms have improved. Signatures: Dispatcher [employer] EDVT Marcia King, HARRY-Lorenzo SUPERVISOR [employer]-Luis Carlos Hampton MD MD cha Antunez, Elena, RN RN ea Pavel Schultz, RN ISMAEL mg2 Corrections: (The following items were deleted from the chart) 00:11 03/24 23:56 03/24/2019 23:56 Discharged to Home. Impression: Fall due to bumping mg2 against object; Strain of muscle and tendon of back wall of thorax; Low back pain. Condition is Stable. Discharge Instructions: Back Pain, Adult, Musculoskeletal Pain, Back Injury Prevention, [id number], Back Pain, Adult, [id number]. Prescriptions for Ibuprofen 600 mg Oral Tablet - take 1 tablet by ORAL route every 6 hours As needed take with food; 21 tablet, Tylenol-Codeine #3 300-30 mg Oral Tablet - take 2 tablet by ORAL route every 6 hours As needed; 30 tablet, Cyclobenzaprine 5 mg Oral Tablet - take 1 tablet by ORAL route 3 times per day As needed; 15 tablet. and Forms are Medication Reconciliation Form, Thank You Letter, Antibiotic Education, Prescription Opioid Use. Follow up: Dakota Soria; When: 2 - 3 days; Reason: Recheck today's complaints, Continuance of care, Re-evaluation by your physician. Problem is new. Symptoms have improved. kb
[2019-03-25 00:34] VITALS: BP 121/78; TEMP 98; O2SAT 100
[2019-03-25 05:35] LABS: Urine Blood NEGATIVE (NEG); Urine Glucose NEGATIVE (NEG); Urine Protein NEGATIVE (NEG); Urine Specific Gravity >1.030 (1.005-1.030); Urine pH 5.5 (5.0-7.0)
--- NOTE | 2019-03-26 13:22 | RAD REPORT ---
EXAM DESCRIPTION: CT - Chest Abdomen Pelvis W Cont - 03/24/2019 11:10 pm CLINICAL HISTORY: 33 years Female FALL OFF LADDER COMPARISON: None TECHNIQUE: Images were obtained in axial, sagittal, and coronal planes. Intravenous contrast was adm inistered. This exam was performed according to our departmental dose-optimization program which includes use of Automated Exposure Control, adjustment of the mA and/or kV according to patient size and/or use of i terative reconstruction technique. FINDINGS: CT chest: No aortic dissection or dilatation. No pericardial or pleural effusions bilatera lly. No adenopathy. No pneumothorax. No lung parenchymal infiltrates or nodules. No acute osseous abn ormality involving the thorax. CT abdomen and pelvis: Fatty change involving the liver. Left lobe of the liver is enlarged. Unremark able spleen, pancreas, and adrenal glands bilaterally. Symmetric renal function bilaterally. No hydro nephrosis bilaterally. No obstructing renal calcifications bilaterally. Appendix not well identified however no secondary signs for appendicitis. No bowel obstruction, perforation, or inflammation. No d ilatation abdominal aorta. No extravasation of contrast seen. No adenopathy or abnormal fluid collect ions. No acute osseous abnormality involving the lumbar spine or pelvis. IMPRESSION: No acute intrathoracic abnormality. No acute intra-abdominal abnormality. Electronically signed by: Melissa Adams MD 03/24/2019 11:24 PM CDT Due to temporary technical issues with the PACS/Fluency reporting system, reports are being signed by the in house radiologist as a courtesy to ensure prompt reporting. The interpreting radiologist is f ully responsible for the content of the report.
== END 2019-03-25 00:11 | disposition home or self-care (01) ==
LOC: ER 20:29
DX: S29.012A Strain of muscle and tendon of back wall of thorax, initial encounter (principal); W11.XXXA Fall on and from ladder, initial encounter; Y93.9 Activity, unspecified; Y92.9 Unspecified place or not applicable
CPT/HCPCS: 36415; 71260; 74177; 80048; 81003; 81025; 85025; 86850; 86900; 86901; 87086; 87088; 96361; 96374; 96375; 99284; J2405; J7030

== ENCOUNTER 2020-04-04 17:45 | Emergency (ER) | payer SELFPAY ==
--- NOTE | 2020-04-04 19:48 | EDPHYS ---
Physician Documentation [facility] Name: Larry Morton Age: 34 yrs Sex: Female : 1985 Arrival Date: 04/04/2020 Time: 17:46 Bed 19 Private MD: ED Physician Luis Carlos Amos HPI: 04/04 18:30 This 34 yrs old Black Female presents to ER via Unassigned with complaints of Arm Pain. cp 18:30 The patient or guardian complains of pain, that is acute. The complaints affect the cp right hand. Context: resulted from unknown cause. 18:30 Onset: The symptoms/episode began/occurred today. Treatment prior to arrival includes: cp no previous treatment. 18:30 Modifying factors: the symptoms are aggravated by gripping and movement of thumb. 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 - Social history:: Smoking status: . ROS: 18:35 Constitutional: Negative for body aches, chills, fever. cp 18:35 Cardiovascular: Negative for chest pain. 18:35 Respiratory: Negative for cough, shortness of breath, wheezing. 18:35 Abdomen/GI: Negative for abdominal pain. 18:35 MS/extremity: Positive for pain, tenderness, of the right hand, Negative for decreased range of motion, deformity, paresthesias. 18:35 Skin: Negative for cellulitis, rash. 18:35 All other systems are negative. Exam: 18:45 Constitutional: The patient appears in no acute distress, alert, awake, non-toxic, well cp developed, well nourished, obese. 18:45 Musculoskeletal/extremity: Extremities: grossly normal except: noted in the proximal right thumb dorsal side: pain, swelling, tenderness, There is no evidence of decreased ROM, ROM: limited passive range of motion due to pain, in the base of right thumb, Perfusion: the extremity is normally perfused throughout, Severe pain noted. 18:45 Skin: cellulitis, is not appreciated, no rash present. Vital Signs: 18:40 BP 113 / 60; Pulse 85; Resp 16 S; Temp 98.0; Pulse Ox 100% on R/A; Weight 149.69 kg; iw Height 5 ft. 4 in. (162.56 cm); Pain 8/10; 19:29 BP 120 / 70; Pulse 82; Resp 18; Pulse Ox 99% ; wh 18:40 Body Mass Index 56.64 (149.69 kg, 162.56 cm) iw Procedures: 20:00 Splinting: Splint applied to right hand using wrist splint, thumb spica type. applied cp by nurse. Examined by me, post splint application: neurovascular intact, Patient tolerated well. MDM: 18:17 Patient medically screened. [facility] 19:20 Data reviewed: vital signs, nurses notes, radiologic studies, plain films. Test cp interpretation: by ED physician or midlevel provider: xrays of right hand negative for fracture. 04/04 18:27 Order name: XRAY Hand RIGHT 3 View cp 04/04 18:27 Order name: Urine Dipstick-Ancillary (obtain specimen); Complete Time: 19:24 cp 04/04 19:40 Order name: Wrist Splint: right thumb spica velcro; Complete Time: 20:09 cp Administered Medications: 18:48 Drug: Ibuprofen 800 mg Route: PO; rb1 20:13 Follow up: Response: No adverse reaction; Pain is decreased wh Disposition: 20:05 Chart complete. 04/05 11:29 Co-signature as Attending Physician, Luis Carlos Amos MD I agree with the assessment and [facility] plan of care. Disposition: 04/04/20 19:48 Discharged to Home. Impression: Other synovitis and tenosynovitis, right hand - De Quervain's. - Condition is Stable. - Discharge Instructions: De Quervain Tenosynovitis. - Prescriptions for Diclofenac Sodium 75 mg Oral Tablet, Delayed Release (E.C.) - take 1 tablet by ORAL route 2 times per day; 20 tablet. Tramadol 50 mg Oral Tablet - take 1 tablet by ORAL route every 8 hours as needed; 20 tablet. - Medication Reconciliation Form, Thank You Letter, Antibiotic Education, Prescription Opioid Use form. - Follow up: Tom Mccabe MD; When: 1 week; Reason: Recheck today's complaints. - Problem is new. - Symptoms have improved. Signatures: Dispatcher [employer] EDLuis Carlos Anand MD MD cha Williams, Irene, RN RN iw Page, Corey, PA PA Dorota Kraft, RN RN [facility] Alaina Peguero Corrections: (The following items were deleted from the chart) 04/04 20:09 18:27 Urine Test ordered. cp :14 19:48 04/04/2020 19:48 Discharged to Home. Impression: Other synovitis and wh tenosynovitis, right hand - De Quervain's. Condition is Stable. Forms are Medication Reconciliation Form, Thank You Letter, Antibiotic Education, Prescription Opioid Use. Follow up: Tom Mccabe; When: 1 week; Reason: Recheck today's complaints. Problem is new. Symptoms have improved. cp 04/05 11:52 11:49 MS/extremity: Positive for pain, tenderness, of the right hand, Negative for cp decreased range of motion, deformity, paresthesias, cp 11:52 11:49 Constitutional: Negative for body aches, chills, fever, cp cp 11:52 11:49 Respiratory: Negative for cough, shortness of breath, wheezing, cp cp 11:52 11:49 Abdomen/GI: Negative for abdominal pain, cp cp 11:52 11:49 Cardiovascular: Negative for chest pain, cp cp 11:52 11:49 Skin: Negative for cellulitis, rash, cp cp 11:52 11:49 All other systems are negative, cp cp
--- NOTE | 2020-04-04 19:48 | ER ---
Nurse's Notes [facility] Name: Larry Morton Age: 34 yrs Sex: Female : 1985 Arrival Date: 04/04/2020 Time: 17:46 Bed 19 Private MD: Diagnosis: Other synovitis and tenosynovitis, right hand-De Quervain's Presentation: 04/04 18:40 Chief complaint: Patient states: right hand pain, radiating to right arm, shooting iw pain, 8/10. Coronavirus screen: Proceed with normal triage. Patient denies a cough. Patient denies shortness of breath or difficulty breathing. Patient denies measured and/or subjective temperature greater than 100.4F prior to today's visit. Patient denies travel on a cruise ship or to a country the [facility] currently lists as an affected area. Patient denies contact with known and/or suspected case of COVID-19. Ebola Screen: Patient negative for fever greater than or equal to 101.5 degrees Fahrenheit, and additional compatible Ebola Virus Disease symptoms Patient denies exposure to infectious person. Patient denies travel to an Ebola-affected area in the 21 days before illness onset. No symptoms or risks identified at this time. Initial Sepsis Screen: Does the patient meet any 2 criteria? No. Patient's initial sepsis screen is negative. Does the patient have a suspected source of infection? No. Patient's initial sepsis screen is negative. Risk Assessment: Do you want to hurt yourself or someone else? Patient reports no desire to harm self or others. Onset of symptoms was April 03, 2020. 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 - Social history:: Smoking status: . Screenin:22 Abuse screen: Denies threats or abuse. Nutritional screening: No deficits noted. rb1 Tuberculosis screening: No symptoms or risk factors identified. Fall Risk None identified. Assessment: 18:22 General: Appears in no apparent distress. comfortable, Behavior is calm, cooperative, rb1 Denies fever. General: Denies injury to right hand. Pain: Complains of pain in right hand Pain radiates to right arm Pain currently is 7 out of 10 on a pain scale. Quality of pain is described as sharp, shooting. Neuro: Level of Consciousness is awake, alert, obeys commands, Oriented to person, place, time, situation. Cardiovascular: Capillary refill < 3 seconds. Respiratory: Airway is patent Respiratory effort is even, unlabored, Respiratory pattern is regular, symmetrical. GI: No signs and/or symptoms were reported involving the gastrointestinal system. : No signs and/or symptoms were reported regarding the genitourinary system. Derm: Skin is dry, Skin is normal, Skin temperature is warm. 19:10 Reassessment: Patient appears in no apparent distress at this time. Patient and/or family updated on plan of care and expected duration. Pain level reassessed. Patient is alert, oriented x 3, equal unlabored respirations, skin warm/dry/pink. 20:12 Reassessment: Patient appears in no apparent distress at this time. No changes from previously documented assessment. Patient and/or family updated on plan of care and expected duration. Pain level reassessed. Patient is alert, oriented x 3, equal unlabored respirations, skin warm/dry/pink. Vital Signs: 18:40 BP 113 / 60; Pulse 85; Resp 16 S; Temp 98.0; Pulse Ox 100% on R/A; Weight 149.69 kg; iw Height 5 ft. 4 in. (162.56 cm); Pain 8/10; 19:29 BP 120 / 70; Pulse 82; Resp 18; Pulse Ox 99% ; wh 18:40 Body Mass Index 56.64 (149.69 kg, 162.56 cm) ED Course: 17:46 Patient arrived in ED. ag5 18:17 Luis Carlos Galicia PA is PHCP. cp 18:17 Luis Carlos Amos MD is Attending Physician. cp 18:22 Patient has correct armband on for positive identification. Bed in low position. Call rb1 light in reach. Side rails up X 1. Pulse ox on. NIBP on. 18:34 Lavern Stapleton, RN is Primary Nurse. iw 18:42 Triage completed. iw 18:42 Arm band placed on. iw 19:23 XRAY Hand RIGHT 3 View In Process Unspecified. EDMS 19:44 Tom Mccabe MD is Referral Physician. cp 20:08 Velcro wrist splint applied to right wrist. 4 20:12 No provider procedures requiring assistance completed. Patient did not have IV access during this emergency room visit. Administered Medications: 18:48 Drug: Ibuprofen 800 mg Route: PO; rb1 20:13 Follow up: Response: No adverse reaction; Pain is decreased Outcome: 19:48 Discharge ordered by MD. cp 20:13 Discharged to home ambulatory, with family. wh 20:13 Condition: stable 20:13 Discharge instructions given to patient, Instructed on discharge instructions, follow up and referral plans. no drinking with medication, no driving heavy equipment, medication usage, POC Demonstrated understanding of instructions, follow-up care, medications, splint care, Prescriptions given X 2. 20:14 Patient left the ED. Signatures: Dispatcher [employer] EDMS Lavern Stapleton RN RN Luis Carlos Galicia PA PA cp Dorota Kraft, RN RN rb1 Sudhir, Alaina Josiah Rodriguez Donald 4 Corrections: (The following items were deleted from the chart) 19:33 19:29 BP 145 / 85; Pulse 82bpm; Resp 18bpm; Pulse Ox 99%; [facility]
--- NOTE | 2020-04-04 20:18 | RAD REPORT ---
EXAM DESCRIPTION: RAD - Hand Right 3 View - 04/04/2020 7:22 pm CLINICAL HISTORY: PAIN COMPARISON: No comparisons FINDINGS: No fracture is identified. There is no dislocation or periosteal reaction noted. No forei gn body or significant soft tissue abnormality. IMPRESSION: Negative right hand examination.
[2020-04-04 20:25] VITALS: TEMP 98
[2020-04-04 20:26] VITALS: BP 120/70; O2SAT 99
== END 2020-04-04 20:14 | disposition home or self-care (01) ==
LOC: ER 17:45
DX: M65.841 Other synovitis and tenosynovitis, right hand (principal)
CPT/HCPCS: 99284

== ENCOUNTER 2020-08-21 12:53 | Emergency (ER) | payer SELFPAY ==
[2020-08-21] MEDS ORDERED: KETOROLAC 30 MG/ML INJ ONE (14:21)
[2020-08-21] MEDS ORDERED: NA CHLORIDE 0.9% 1,000 ML ONE (14:21)
--- NOTE | 2020-08-21 14:48 | RAD REPORT ---
EXAM DESCRIPTION: USExtrem Venous W Compress Bil08/21/2020 2:31 pm CLINICAL HISTORY: Leg pain COMPARISON: none FINDINGS: The common femoral, superficial femoral, popliteal and posterior tibial veins bilaterally are compressible and demonstrate augmentation. Doppler demonstrates good flow. IMPRESSION: No evidence of deep venous thrombosis involving either lower extremity.
[2020-08-21 14:50] LABS: Absolute Lymphocytes (CBC) 0.6 K/uL (0.7-4.9); Basophils % 0.8 % (0-1.3); Lymphocytes % 15.6 % (15.3-44.8); MPV 10.3 fL (7.6-11.3); RBC Red Blood Cell Count 4.35 M/uL (3.86-4.86)
--- NOTE | 2020-08-21 15:05 | RAD REPORT ---
EXAM DESCRIPTION: Traci Single View08/21/2020 2:14 pm CLINICAL HISTORY: Shortness of breath COMPARISON: 2016 FINDINGS: The right lung is diffusely hazy Left lung appears grossly clear The heart is borderline enlarged IMPRESSION: Right lung is diffusely hazy suspicious for pneumonia
[2020-08-21] MEDS ORDERED: CEFTRIAXONE/SWI 1gm 1 GM/10 ML SYR ONE (15:27)
[2020-08-21] MEDS ORDERED: dexAMETHasone 4 MG/ML VIAL ONE (15:27)
[2020-08-21] MEDS ORDERED: ALBUTEROL INHALER 60 PUFF/8 GM IH ONE (15:27)
--- NOTE | 2020-08-21 15:52 | ER ---
Nurse's Notes [facility] Name: Larry Morton Age: 35 yrs Sex: Female : 1985 Arrival Date: 08/21/2020 Time: 12:55 Bed 19 Private MD: Dakota Soria V Diagnosis: Pneumonia due to other specified bacteria Presentation: 08/21 13:09 Chief complaint: Chief complaint: Patient states: left sided chest tightness, diff iw breathing, body aches, chills and lost her sense of tasted and smell, started at 1 am today. 13:09 Coronavirus screen: chills, cough unrelated to allergies, difficulty breathing, iw headache, loss of taste or smell, Client presents with at least one sign or symptom that may indicate coronavirus-19. Standard/surgical mask placed on the client. Provider contacted for isolation considerations. Ebola Screen: Patient negative for fever greater than or equal to 101.5 degrees Fahrenheit, and additional compatible Ebola Virus Disease symptoms Patient denies exposure to infectious person. Patient denies travel to an Ebola-affected area in the 21 days before illness onset. No symptoms or risks identified at this time. Initial Sepsis Screen: Does the patient meet any 2 criteria? No. Patient's initial sepsis screen is negative. Does the patient have a suspected source of infection? No. Patient's initial sepsis screen is negative. Risk Assessment: Do you want to hurt yourself or someone else? Patient reports no desire to harm self or others. Onset of symptoms was August 21, 2020. 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 - Social history:: Smoking status: Patient denies any tobacco usage or history of. Screenin:10 Abuse screen: Denies threats or abuse. Nutritional screening: No deficits noted. jd3 Tuberculosis screening: No symptoms or risk factors identified. Fall Risk Ambulatory Aid- None/Bed Rest/Nurse Assist (0 pts). Gait- Normal/Bed Rest/Wheelchair (0 pts) Mental Status- Oriented to own ability (0 pts). Total Delgado Fall Scale indicates No Risk (0-24 pts). Assessment: 14:08 General: Appears uncomfortable, Behavior is calm, cooperative, appropriate for age. jd3 Pain: Complains of pain in chest Quality of pain is described as aching. Neuro: Level of Consciousness is awake, alert, obeys commands, Oriented to person, place, time, situation. Cardiovascular: Capillary refill < 3 seconds Patient's skin is warm and dry. Rhythm is regular. Respiratory: Reports shortness of breath cough that is persistent Airway is patent Respiratory effort is even, unlabored, Respiratory pattern is regular, symmetrical. GI: No signs and/or symptoms were reported involving the gastrointestinal system. : No signs and/or symptoms were reported regarding the genitourinary system. EENT: No signs and/or symptoms were reported regarding the EENT system. Derm: Skin is intact, Skin is dry, Skin is normal, Skin temperature is warm. Musculoskeletal: Circulation, motion, and sensation intact. Range of motion: intact in all extremities. 15:24 Reassessment: Patient appears in no apparent distress at this time. Patient and/or jd3 family updated on plan of care and expected duration. Pain level reassessed. Patient is alert, oriented x 3, equal unlabored respirations, skin warm/dry/pink. Patient states feeling better. 16:28 Reassessment: Patient appears in no apparent distress at this time. Patient and/or jd3 family updated on plan of care and expected duration. Pain level reassessed. Patient is alert, oriented x 3, equal unlabored respirations, skin warm/dry/pink. Patient states feeling better. Vital Signs: 13:11 BP 130 / 82; Pulse 124; Resp 18 S; Temp 99.0(O); Pulse Ox 99% on R/A; Weight 158.76 kg; iw Height 5 ft. 4 in. (162.56 cm); Pain 9/10; 14:08 BP 132 / 95; Pulse 106; Resp 20 S; Pulse Ox 99% on R/A; jd3 15:24 BP 101 / 66; Pulse 108; Resp 18 S; Pulse Ox 100% on R/A; jd3 16:29 BP 116 / 72; Pulse 100; Resp 18 S; Pulse Ox 99% on R/A; jd3 13:11 Body Mass Index 60.08 (158.76 kg, 162.56 cm) iw ED Course: 12:55 Patient arrived in ED. ag5 12:56 Dakota Soria MD is Private Physician. ag5 12:58 Luis Carlos Galicia PA is PHCP. cp 12:58 Luis Carlos Amos MD is Attending Physician. cp 13:10 Triage completed. iw 13:11 Arm band placed on. iw 13:45 Initial lab(s) drawn, by me, sent to lab. Inserted saline lock: 20 gauge in right iw antecubital area, using aseptic technique. Blood collected. 13:54 Alex Rodriguez, RN is Primary Nurse. jd3 14:10 Patient has correct armband on for positive identification. Placed in gown. Bed in low jd3 position. Call light in reach. Side rails up X2. report writer on. Pulse ox on. NIBP on. 14:14 Chest Single View In Process Unspecified. EDMS 14:32 Extrem Venous W Compress Willie In Process Unspecified. EDMS 15:50 Dakota Soria MD is Referral Physician. cp 16:28 No provider procedures requiring assistance completed. IV discontinued, intact, jd3 bleeding controlled, No redness/swelling at site. Pressure dressing applied. Administered Medications: 14:39 Drug: TORadol - Ketorolac 15 mg Route: IVP; Site: right antecubital; jd3 15:30 Follow up: Response: No adverse reaction jd3 14:39 Drug: NS 0.9% 1000 ml Route: IV; Rate: 1 bolus; Site: right antecubital; jd3 16:30 Follow up: Response: No adverse reaction; IV Status: Completed infusion; IV Intake: jd3 1000ml 15:24 Drug: Decadron - Dexamethasone 6 mg Route: IVP; Site: right antecubital; jd3 16:20 Follow up: Response: No adverse reaction jd3 15:24 Drug: Rocephin 1 grams Route: IV; Rate: calculated rate; Site: right antecubital; jd3 16:00 Follow up: Response: No adverse reaction; IV Status: Completed infusion jd3 15:24 Drug: Albuterol HFA Inhaler 2 puffs Route: Inhalation; jd3 16:20 Follow up: Response: No adverse reaction jd3 Intake: 16:30 IV: 1000ml; Total: 1000ml. jd3 Outcome: 15:51 Discharge ordered by MD. cp 16:28 Discharged to home ambulatory, with family. jd3 16:28 Condition: stable 16:28 Discharge instructions given to patient, Instructed on discharge instructions, follow up and referral plans. medication usage, Demonstrated understanding of instructions, follow-up care, medications, Prescriptions given X 4. 16:31 Patient left the ED. jd3 Signatures: Dispatcher [employer] EDLavern Olsen RN RN iw Page, Corey, PA PA cp Davies, Jonathon, RN RN elizabeth Rodriguez, Josiah ag5 Corrections: (The following items were deleted from the chart) 13:10 13:09 Chief complaint: taye kothari
--- NOTE | 2020-08-21 15:52 | EDPHYS ---
Physician Documentation [facility] Name: Larry Morton Age: 35 yrs Sex: Female : 1985 Arrival Date: 08/21/2020 Time: 12:55 Bed 19 Private MD: Dakota Soria V ED Physician Luis Carlos Amos HPI: 08/21 13:23 This 35 yrs old Black Female presents to ER via Ambulatory with complaints of Breathing cp Difficulty, Chest Tightness. 13:23 The patient has shortness of breath at rest. Onset: The symptoms/episode began/occurred cp this morning. Duration: The symptoms are continuous, and are steadily getting worse. 13:23 Associated signs and symptoms: Pertinent positives: chest pain, non-productive cough, cp Pertinent negatives: diaphoresis, numbness in extremities, vomiting. 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 - Social history:: Smoking status: Patient denies any tobacco usage or history of. ROS: 13:25 Constitutional: Positive for body aches, Negative for fever, poor PO intake. cp 13:25 Eyes: Negative for injury, pain, redness, and discharge. cp 13:25 ENT: Negative for ear pain, sore throat, difficulty swallowing, difficulty handling secretions. 13:25 Cardiovascular: Positive for chest pain, Negative for edema, palpitations. 13:25 Respiratory: Positive for cough, shortness of breath, at rest. Negative for wheezing. 13:25 Abdomen/GI: Negative for abdominal pain, nausea, vomiting, and diarrhea. 13:25 Neuro: Negative for altered mental status, dizziness, headache, weakness. 13:25 All other systems are negative. Exam: 13:33 Constitutional: The patient appears in no acute distress, alert, awake, cp non-diaphoretic, non-toxic, well developed, well nourished, obese. 13:33 Head/Face: Normocephalic, atraumatic. cp 13:33 Eyes: Periorbital structures: appear normal, Conjunctiva: normal, no exudate, no injection, Sclera: no appreciated abnormality, Lids and lashes: appear normal, bilaterally. 13:33 ENT: External ear(s): are unremarkable, Ear canal(s): are normal, clear, TM's: dullness, bilaterally, Nose: is normal, Mouth: Lips: moist, Oral mucosa: moist, Posterior pharynx: Airway: no evidence of obstruction, patent, Tonsils: are normal in appearance, erythema, is not appreciated, exudate, is not appreciated. 13:33 Neck: ROM/movement: is normal, is supple, without pain, no range of motions limitations, no meningismus. 13:33 Chest/axilla: Inspection: normal, Palpation: is normal, no crepitus, no tenderness. 13:33 Cardiovascular: Rate: tachycardic, Rhythm: regular, Edema: is not appreciated, JVD: is not appreciated. 13:33 Respiratory: the patient does not display signs of respiratory distress, Respirations: labored breathing, is not present, intercostal retractions, are absent, shallow respirations, that is mild, Breath sounds: bronchial sounds, that are mild, are heard diffusely, decreased breath sounds, are not appreciated, stridor, is not appreciated. 13:33 Abdomen/GI: Exam negative for discomfort, distension, guarding, Inspection: abdomen appears normal. 13:33 Back: pain, is absent, ROM is normal. 13:33 Skin: no rash present. 13:33 Neuro: Orientation: to person, place \T\ time. Mentation: is normal, Motor: moves all fours, strength is normal. 14:09 ECG was reviewed by the Attending Physician. cp Vital Signs: 13:11 BP 130 / 82; Pulse 124; Resp 18 S; Temp 99.0(O); Pulse Ox 99% on R/A; Weight 158.76 kg; iw Height 5 ft. 4 in. (162.56 cm); Pain 9/10; 14:08 BP 132 / 95; Pulse 106; Resp 20 S; Pulse Ox 99% on R/A; jd3 15:24 BP 101 / 66; Pulse 108; Resp 18 S; Pulse Ox 100% on R/A; jd3 16:29 BP 116 / 72; Pulse 100; Resp 18 S; Pulse Ox 99% on R/A; jd3 13:11 Body Mass Index 60.08 (158.76 kg, 162.56 cm) iw MDM: 12:58 Patient medically screened. cp 14:00 Differential diagnosis: Bronchitis CHF exacerbation, Myocardial Infarction pneumonia, cp pulmonary edema, Pulmonary Embolism Sepsis COVID-19, influenza. 15:50 Data reviewed: vital signs, nurses notes. cp 15:50 Antibiotic administration: The patient is discharged and will get outpatient cp antibiotics, Zithromax, Augmentin. Data interpreted: gambling monitor: rate is 108 beats/min, Pulse oximetry: on room air is 100 %. Interpretation: normal. Plan: O2 by NC applied. Test interpretation: by ED physician or midlevel provider: ECG, plain radiologic studies. Counseling: I had a detailed discussion with the patient and/or guardian regarding: the historical points, exam findings, and any diagnostic results supporting the discharge/admit diagnosis, lab results, radiology results, the need for outpatient follow up, a family practitioner, to return to the emergency department if symptoms worsen or persist or if there are any questions or concerns that arise at home. Response to treatment: the patient's symptoms have markedly improved after treatment, VSS. Patient appears non-toxic and no signs of respiratory distress, and as a result, I will discharge patient. 08/21 13:47 Order name: Basic Metabolic Panel EDAZ 08/21 13:47 Order name: Liver (Hepatic) Function EDAZ 08/21 13:47 Order name: Troponin (Emerg Dept Use Only) EDAZ 08/21 13:26 Order name: Chest Single View; Complete Time: 15:06 [facility] 08/21 13:26 Order name: Extrem Venous W Compress Willie; Complete Time: 15:06 EDAZ 08/21 13:47 Order name: NT PRO-BNP EDAZ 08/21 13:47 Order name: Magnesium EDAZ 08/21 13:48 Order name: CBC with Automated Diff; Complete Time: 15:06 EDAZ 08/21 15:06 Interpretation: Normal except: WBC 3.7; LYMA 0.6. cp 08/21 13:48 Order name: Protime (+INR); Complete Time: 15:06 EDAZ 08/21 13:48 Order name: Fibrinogen; Complete Time: 15:06 EDAZ 08/21 13:48 Order name: D-Dimer; Complete Time: 15:06 EDAZ 08/21 13:49 Order name: Influenza Screen (A ; Complete Time: 15:48 EDMS 08/21 15:48 Interpretation: Reviewed. cp 08/21 13:49 Order name: CORONAVIRUS EDAZ 08/21 13:14 Order name: EKG; Complete Time: 14:43 cp 08/21 13:14 Order name: Cardiac monitoring; Complete Time: 13:54 cp 08/21 13:14 Order name: EKG - Nurse/Tech; Complete Time: 13:54 cp 08/21 13:14 Order name: IV Saline Lock; Complete Time: 13:54 cp 08/21 13:14 Order name: Labs collected and sent; Complete Time: 13:54 cp 08/21 13:14 Order name: O2 Per Protocol; Complete Time: 13:54 cp 08/21 13:14 Order name: O2 Sat Monitoring; Complete Time: 13:54 cp EC:09 Rate is 108 beats/min. Rhythm is regular. VT interval is normal. QRS interval is cp normal. QT interval is normal. T waves are Inverted in leads III, aVR. Interpreted by me. Reviewed by me. Administered Medications: 14:39 Drug: TORadol - Ketorolac 15 mg Route: IVP; Site: right antecubital; jd3 15:30 Follow up: Response: No adverse reaction jd3 14:39 Drug: NS 0.9% 1000 ml Route: IV; Rate: 1 bolus; Site: right antecubital; jd3 16:30 Follow up: Response: No adverse reaction; IV Status: Completed infusion; IV Intake: jd3 1000ml 15:24 Drug: Decadron - Dexamethasone 6 mg Route: IVP; Site: right antecubital; jd3 16:20 Follow up: Response: No adverse reaction jd3 15:24 Drug: Rocephin 1 grams Route: IV; Rate: calculated rate; Site: right antecubital; jd3 16:00 Follow up: Response: No adverse reaction; IV Status: Completed infusion jd3 15:24 Drug: Albuterol HFA Inhaler 2 puffs Route: Inhalation; jd3 16:20 Follow up: Response: No adverse reaction jd3 Disposition: 08/22 14:41 Co-signature as Attending Physician, Luis Carlos Amos MD I agree with the assessment and jase plan of care. Disposition: 08/21/20 15:51 Discharged to Home. Impression: Pneumonia due to other specified bacteria. - Condition is Stable. - Discharge Instructions: Community-Acquired Pneumonia, Adult, COVID-19. - Prescriptions for Augmentin 875- 125 mg Oral Tablet - take 1 tablet by ORAL route every 12 hours for 10 days; 20 tablet. Zithromax Z- Salazar 250 mg Oral Tablet - take 1 tablet by ORAL route as directed for 5 days Day 1 - take two (2) tablets one time. Day 2, 3, 4 , 5 take one (1) tablet once daily.; 6 tablet. Albuterol Sulfate 90 mcg/actuation - inhale 1-2 puff by INHALATION route every 4-6 hours; 1 Inhaler. dexamethasone 2 mg Oral tablet - take 1 tablet by ORAL route 3 times per day for 5 days; 15 tablet. - Medication Reconciliation Form, Thank You Letter, Antibiotic Education, Prescription Opioid Use form. - Follow up: Dakota Soria MD; When: 1 - 2 days; Reason: Recheck today's complaints. - Problem is new. - Symptoms have improved. Signatures: Dispatcher [employer] EDMS Luis Carlos Amos MD MD cha Williams, Irene RN RN Luis Carlos Lo PA PA cp Davies, Jonathon, RN RN jd3 Corrections: (The following items were deleted from the chart) 08/21 14:51 14:44 Extrem Venous W Compression Willie+US.RAD.BRZ ordered. EDMS EDMS 14:56 14:43 CBC+H.LAB.BRZ ordered. EDMS EDMS 14:56 14:43 PROTIME (+INR)+COAG.LAB.BRZ ordered. EDMS EDMS 14:56 14:43 FIBRINOGEN+COAG.LAB.BRZ ordered. EDMS EDMS 14:56 14:43 D-DIMER+COAG.LAB.BRZ ordered. EDMS EDMS 14:57 14:43 BASIC METABOLIC PANEL+C.LAB.BRZ ordered. EDMS EDMS 14:57 14:43 HEPATIC FUNCTION+C.LAB.BRZ ordered. EDMS EDMS 14:57 14:43 MAGNESIUM+C.LAB.BRZ ordered. EDMS EDMS 14:57 14:43 PROBNP+C.LAB.BRZ ordered. EDMS EDMS 14:57 14:43 TROPONIN (EMERG DEPT USE ONLY)+C.LAB.BRZ ordered. EDMS EDMS 14:57 14:43 Influenza Screen (A \T\ B)+BA.LAB.BRZ ordered. EDMS EDMS 14:57 14:43 CORONAVIRUS+MR.LAB.BRZ ordered. EDMS EDMS 14:58 14:43 Chest Single View+RAD.RAD.BRZ ordered. EDMS EDMS 15:06 15:06 Normal except: WBC 3.7. cp cp 16:31 15:51 08/21/2020 15:51 Discharged to Home. Impression: Pneumonia due to other specified jd3 bacteria. Condition is Stable. Forms are Medication Reconciliation Form, Thank You Letter, Antibiotic Education, Prescription Opioid Use. Follow up: Dakota Soria; When: 1 - 2 days; Reason: Recheck today's complaints. Problem is new. Symptoms have improved. cp
[2020-08-21 16:47] VITALS: TEMP 99
[2020-08-21 16:59] VITALS: BP 116/72; O2SAT 99
[2020-08-21 18:16] LABS: ALT/SGPT 103 U/L (12-78); AST/SGOT 47 U/L (15-37); Albumin 3.2 g/dL (3.4-5.0); Alkaline Phosphatase 47 U/L (45-117); BUN Blood Urea Nitrogen 7 mg/dL (7-18); Bicarbonate 27 mmol/L (21-32); Bilirubin Direct < 0.1 mg/dL (0-0.2); Bilirubin Total 0.2 mg/dL (0.2-1.0); Glucose Level 103 mg/dL (74-106); Magnesium 1.7 mg/dL (1.8-2.4); Potassium 3.8 mmol/L (3.5-5.1); Protein, Total 7.3 g/dL (6.4-8.2); Sodium Level 138 mmol/L (136-145); Troponin (Emerg Dept Use Only) < 0.02 ng/mL (0.0-0.045)
[2020-08-21 18:17] LABS: NT PRO-BNP < 5 pg/mL (<125)
--- NOTE | 2020-08-22 10:12 | EKG ---
Test Date: 2020-08-21 Test Time: 13:52:40 Sample Coordinator: MAHESH MEASUREMENT RESULTS: Intervals: Rate: 108 MD: 148 QRSD: 68 QT: 318 QTc: 426 [place]: P: 62 MD: 148 QRS: 77 T: 9 INTERPRETIVE STATEMENTS: Sinus tachycardia Low voltage QRS Nonspecific T wave abnormality Abnormal ECG Compared to ECG 01/22/2018 08:08:43 Low QRS voltage now present T-wave abnormality now present Myocardial infarct finding no longer present Electronically Signed On 08-22-20 10:10:16 CLINICAL PHYSICIAN ASSISTANT by Bishnu Borrero
== END 2020-08-21 16:31 | disposition home or self-care (01) ==
LOC: ER 12:53
DX: U07.1 COVID-19 (principal); J15.8 Pneumonia due to other specified bacteria
CPT/HCPCS: 36415; 71045; 80048; 80076; 83735; 83880; 84484; 85025; 85379; 85384; 85610; 87804; 93005; 93970; 96361; 96365; 96375; 99285; J0696; J1100; J7030; U0002

== ENCOUNTER 2020-08-21 22:59 | Emergency (ER) | payer SELFPAY, OTHER ==
[2020-08-22] MEDS ORDERED: NA CHLORIDE 0.9% 1,000 ML ONE (00:51)
[2020-08-22] MEDS ORDERED: METOCLOPRAMIDE 10 MG/2mL INJ ONE (00:51)
[2020-08-22] MEDS ORDERED: DIPHENHYDRAMINE 50 MG/ML VIAL ONE (00:51)
[2020-08-22 01:02] LABS: Protime INR 1.02
[2020-08-22 01:04] LABS: Absolute Lymphocytes (CBC) 0.3 K/uL (0.7-4.9); Basophils % 0.5 % (0-1.3); Hematocrit 38.5 % (36.0-45.0); Lymphocytes % 7.2 % (15.3-44.8); MPV 10.7 fL (7.6-11.3); RBC Red Blood Cell Count 4.41 M/uL (3.86-4.86)
[2020-08-22 01:15] LABS: Barbiturates NEGATIVE (NEGATIVE); Benzodiazepines NEGATIVE (NEGATIVE); Cocaine NEGATIVE (NEGATIVE); METHAMPHETAM NEGATIVE (NEGATIVE); Methadone NEGATIVE (NEGATIVE); Opiates NEGATIVE (NEGATIVE); Phencyclidine NEGATIVE (NEGATIVE); THC Cannibis NEGATIVE (NEGATIVE)
[2020-08-22 01:21] LABS: ALT/SGPT 101 U/L (12-78); AST/SGOT 45 U/L (15-37); Albumin 3.5 g/dL (3.4-5.0); Alkaline Phosphatase 44 U/L (45-117); BUN Blood Urea Nitrogen 9 mg/dL (7-18); Bicarbonate 22 mmol/L (21-32); Bilirubin Direct < 0.1 mg/dL (0-0.2); Bilirubin Total 0.2 mg/dL (0.2-1.0); Glucose Level 118 mg/dL (74-106); Magnesium 1.8 mg/dL (1.8-2.4); NT PRO-BNP 6 pg/mL (<125); Potassium 4.2 mmol/L (3.5-5.1); Protein, Total 7.9 g/dL (6.4-8.2); Sodium Level 140 mmol/L (136-145); Troponin (Emerg Dept Use Only) < 0.02 ng/mL (0.0-0.045)
[2020-08-22 01:29] LABS: Blood Morphology Comment NOT SEEN (NOT SEEN); Platelet Estimate ADEQ
[2020-08-22 02:47] LABS: Urine Blood NEGATIVE (NEG); Urine Glucose NEGATIVE (NEG); Urine Protein NEGATIVE (NEG); Urine Specific Gravity 1.015 (1.005-1.030)
--- NOTE | 2020-08-22 03:35 | ER ---
Nurse's Notes [facility] Name: Larry Morton Age: 35 yrs Sex: Female : 1985 Arrival Date: 08/21/2020 Time: 23:02 Bed 7 Private MD: Diagnosis: Pneumonia;Chest Pain Presentation: 08/21 23:19 Chief complaint: Patient states: I was seen here earlier today and given prescriptions sg like steroids, abuterol, a zpak. Well about an hour ago, My chest started have pressure in it, and I have a headache and I just feel lightheaded. 23:19 Acuity: CELESTINO 3 sg 23:19 Coronavirus screen: Client denies travel out of the [place] in the last 14 days. muscle rr5 pain, Client presents with at least one sign or symptom that may indicate coronavirus-19. Standard/surgical mask placed on the client. Provider contacted for isolation considerations. The client indicates previous COVID test results are pending. results are pending. Staff notified of need for isolation. Ebola Screen: Patient negative for fever greater than or equal to 101.5 degrees Fahrenheit, and additional compatible Ebola Virus Disease symptoms Patient denies exposure to infectious person. Patient denies travel to an Ebola-affected area in the 21 days before illness onset. Initial Sepsis Screen: Does the patient meet any 2 criteria? HR > 90 bpm. No. Patient's initial sepsis screen is negative. Does the patient have a suspected source of infection? Yes: Productive cough/pneumonia. Risk Assessment: Do you want to hurt yourself or someone else? Patient reports no desire to harm self or others. Onset of symptoms was August 21, 2020. 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 - Social history:: Smoking status: unknown. Screenin/01 00:30 Fall Risk IV access (20 points). Total Delgado Fall Scale indicates No Risk (0-24 pts). rr5 01:07 Abuse screen: Denies threats or abuse. Denies injuries from another. Nutritional rr5 screening: No deficits noted. Tuberculosis screening: No symptoms or risk factors identified. Assessment: 08/21 23:30 General: Appears in no apparent distress. uncomfortable, Behavior is calm, cooperative, rr5 appropriate for age. 23:30 Pain: Complains of pain in chest Pain radiates to back Pain Quality of pain is rr5 described as aching, Pain began gradually, Is intermittent. Neuro: Level of Consciousness is awake, alert, obeys commands, Oriented to person, place, time, situation, Reports headache. Cardiovascular: Reports chest pain, Capillary refill is > 3 seconds Patient's skin is warm and dry. Respiratory: Reports shortness of breath Airway is patent Respiratory effort is even, unlabored, Respiratory pattern is regular, symmetrical. GI: No signs and/or symptoms were reported involving the gastrointestinal system. : No signs and/or symptoms were reported regarding the genitourinary system. EENT: No signs and/or symptoms were reported regarding the EENT system. Derm: Skin is intact, is healthy with good turgor, Skin temperature is warm. Musculoskeletal: Circulation, motion, and sensation intact. Capillary refill < 3 seconds. 08/22 00:30 Reassessment: Patient appears in no apparent distress at this time. Patient is alert, rr5 oriented x 3, equal unlabored respirations, skin warm/dry/pink. 01:10 Reassessment: Patient appears in no apparent distress at this time. Patient is alert, rr5 oriented x 3, equal unlabored respirations, skin warm/dry/pink. Patient states feeling better. Patient states symptoms have improved. 02:10 Reassessment: Patient appears in no apparent distress at this time. Patient is alert, rr5 oriented x 3, equal unlabored respirations, skin warm/dry/pink. awaiting for CT chest result. 03:10 Reassessment: Patient appears in no apparent distress at this time. Patient and/or rr5 family updated on plan of care and expected duration. Pain level reassessed. Patient is alert, oriented x 3, equal unlabored respirations, skin warm/dry/pink. no complaints made. 03:50 Reassessment: Patient appears in no apparent distress at this time. Patient is alert, rr5 oriented x 3, equal unlabored respirations, skin warm/dry/pink. discharge instruction given and explained without complaints made. Patient states feeling better. Patient states symptoms have improved. Vital Signs: 08/21 23:19 BP 129 / 76; Pulse 117; Resp 19; Temp 98; Pulse Ox 98% ; rr5 11 00:40 BP 121 / 65; Pulse 110; Resp 18; Temp 98.5; Pulse Ox 100% ; rr5 01:08 Weight 158.76 kg; Height 5 ft. 4 in. (162.56 cm); rr5 02:00 BP 119 / 85; Pulse 102; Resp 20; Pulse Ox 98% ; rr5 03:00 BP 126 / 89; Pulse 105; Resp 17; Pulse Ox 99% ; rr5 03:50 BP 116 / 85; Pulse 95; Resp 17; Temp 98.5; Pulse Ox 99% ; rr5 01:08 Body Mass Index 60.08 (158.76 kg, 162.56 cm) rr5 ED Course: 08/21 23:02 Patient arrived in ED. bp1 23:20 Triage completed. sg 23:20 Arm band placed on right wrist. rr5 23:24 Terry Quesada, RN is Primary Nurse. rr5 23:40 Patient has correct armband on for positive identification. Bed in low position. Call rr5 light in reach. Side rails up X2. campus monitor on. Pulse ox on. NIBP on. 23:41 Reyes Chambers MD is Attending Physician. 7 08/22 00:35 Inserted saline lock: 22 gauge in right forearm, using aseptic technique. Blood ds4 collected. 03:50 No provider procedures requiring assistance completed. IV discontinued, intact, rr5 bleeding controlled, No redness/swelling at site. Pressure dressing applied. 03:50 Patient maintains SpO2 saturation greater than 95% on room air. rr5 Administered Medications: 00:46 Drug: NS 0.9% 1000 ml Route: IV; Rate: 1000 ml; Site: right antecubital; rr5 01:50 Follow up: Response: No adverse reaction; IV Status: Completed infusion; IV Intake: rr5 1000ml 00:48 Drug: Reglan 10 mg Route: IVP; Site: right antecubital; rr5 01:50 Follow up: Response: No adverse reaction; Marked relief of symptoms rr5 00:50 Drug: Benadryl 25 mg Route: IVP; Site: right antecubital; rr5 01:50 Follow up: Response: No adverse reaction; Marked relief of symptoms rr5 05:10 Not Given (Other Intervention Used): morphine 2 mg IVP once; RASS on ADMIN: Combtv4, rr5 Very Agttd3, Agttd2, Rstlss1, AlertClm0, Drwsy-1, Lt Sdtn-2, Mod Sdtn-3, Dp Sdtn-4, UnArsble-5 Intake: 01:50 IV: 1000ml; Total: 1000ml. rr5 Outcome: 03:35 Discharge ordered by . [email or web address] 03:55 Condition: stable rr5 03:55 Discharged to home ambulatory. rr5 03:55 Discharge instructions given to patient, Instructed on discharge instructions, follow up and referral plans. Demonstrated understanding of instructions, follow-up care. 03:57 Patient left the ED. rr5 Addendum: 08/24/2020 18:12 Addendum: COVID-19 Result: Positive result giiven to ED physician to notify pt. a a5 Physician was able to contact pt and pt was notified of positive COVID-19 swab result. Physician answered pt questions. Signatures: Harpal Almaraz RN RN Lacie Jacobs RN RN [email or web address] Chandler Shankar Raymond, ISMAEL RN rr5 Mendy Ingram Maurice, MD MD [email or web address]
--- NOTE | 2020-08-22 03:35 | EDPHYS ---
Physician Documentation [facility] Name: Larry Morton Age: 35 yrs Sex: Female : 1985 Arrival Date: 08/21/2020 Time: 23:02 Bed 7 Private MD: ED Physician Reyes Chambers HPI: 08/22 00:28 This 35 yrs old Black Female presents to ER via Ambulatory with complaints of Chest mh7 Pressure, Headache, Lightheaded, Fast Heartbeat. 00:28 The patient or guardian reports chest pain that is located primarily in the anterior mh7 chest wall, right. The pain does not radiate. Associated signs and symptoms: Pertinent positives: dizziness, headache, lightheadedness, Pertinent negatives: abdominal pain, cough, diaphoresis, lower extremity pain, lower extremity swelling, nausea, near syncope, palpitations, recent travel, shortness of breath, syncope, vomiting. 00:30 The chest pain is described as tightness. Duration: The patient or guardian reports mh7 multiple episodes, that are intermittent, that wax and wane. Modifying factors: The symptoms are alleviated by nothing. the symptoms are aggravated by nothing. Severity of pain: At its worst the pain was moderate yesterday, in the emergency department the pain has improved moderately. The patient has been recently seen at the [facility] Emergency Department, yesterday, for similar complaints labs were performed, X-rays were performed, an ultrasound was performed, was given a prescription for antibiotics. EQUINE DENTIST: 02:00 LMP 08/06/2020 rr5 Historical: - Allergies: 08/21 23:20 No Known Allergies; rr5 - Home Meds: 23:20 None [Active]; rr5 - PMHx: 23:20 None; rr5 - PSHx: 23:20 None; rr5 - Immunization history:: Adult Immunizations up to date. - Social history:: Smoking status: unknown. ROS: 08/22 00:30 Constitutional: Negative for fever, chills, and weight loss, Eyes: Negative for injury, mh7 pain, redness, and discharge, ENT: Negative for injury, pain, and discharge, Neck: Negative for injury, pain, and swelling, Abdomen/GI: Negative for abdominal pain, nausea, vomiting, diarrhea, and constipation, Back: Negative for injury and pain, : Negative for injury, bleeding, discharge, and swelling, MS/Extremity: Negative for injury and deformity, Skin: Negative for injury, rash, and discoloration, Psych: Negative for depression, anxiety, suicide ideation, homicidal ideation, and hallucinations, Allergy/Immunology: Negative for hives, rash, and allergies, Endocrine: Negative for neck swelling, polydipsia, polyuria, polyphagia, and marked weight changes, Hematologic/Lymphatic: Negative for swollen nodes, abnormal bleeding, and unusual bruising. Exam: 00:38 Constitutional: This is a well developed, well nourished patient who is awake, alert, mh7 and in no acute distress. Head/Face: Normocephalic, atraumatic. Eyes: Pupils equal round and reactive to light, extra-ocular motions intact. Lids and lashes normal. Conjunctiva and sclera are non-icteric and not injected. Cornea within normal limits. Periorbital areas with no swelling, redness, or edema. Neck: Trachea midline, no thyromegaly or masses palpated, and no cervical lymphadenopathy. Supple, full range of motion without nuchal rigidity, or vertebral point tenderness. No Meningismus. Chest/axilla: Normal chest wall appearance and motion. Nontender with no deformity. No lesions are appreciated. 00:38 Respiratory: Lungs have equal breath sounds bilaterally, clear to auscultation and percussion. No rales, rhonchi or wheezes noted. No increased work of breathing, no retractions or nasal flaring. Abdomen/GI: Soft, non-tender, with normal bowel sounds. No distension or tympany. No guarding or rebound. No evidence of tenderness throughout. Back: No spinal tenderness. No costovertebral tenderness. Full range of motion. Skin: Warm, dry with normal turgor. Normal color with no rashes, no lesions, and no evidence of cellulitis. MS/ Extremity: Pulses equal, no cyanosis. Neurovascular intact. Full, normal range of motion. Neuro: Awake and alert, GCS 15, oriented to person, place, time, and situation. Cranial nerves II-XII grossly intact. Motor strength 5/5 in all extremities. Sensory grossly intact. Cerebellar exam normal. Normal gait. Psych: Awake, alert, with orientation to person, place and time. Behavior, mood, and affect are within normal limits. 00:38 Cardiovascular: Rate: tachycardic, Rhythm: regular, Pulses: no pulse deficits are appreciated, Heart sounds: normal, normal S1and S2, Edema: is not appreciated, JVD: is not appreciated. Vital Signs: 08/21 23:19 BP 129 / 76; Pulse 117; Resp 19; Temp 98; Pulse Ox 98% ; rr5 08/22 00:40 BP 121 / 65; Pulse 110; Resp 18; Temp 98.5; Pulse Ox 100% ; rr5 01:08 Weight 158.76 kg; Height 5 ft. 4 in. (162.56 cm); rr5 02:00 BP 119 / 85; Pulse 102; Resp 20; Pulse Ox 98% ; rr5 03:00 BP 126 / 89; Pulse 105; Resp 17; Pulse Ox 99% ; rr5 03:50 BP 116 / 85; Pulse 95; Resp 17; Temp 98.5; Pulse Ox 99% ; rr5 01:08 Body Mass Index 60.08 (158.76 kg, 162.56 cm) rr5 MDM: 00:17 Patient medically screened. [facility] 03:32 Differential diagnosis: acute myocardial infarction, acute pericarditis, anxiety, 7 coronary artery disease chest wall pain, congestive heart failure costochondritis, myocarditis, pericarditis, pleurisy, pneumonia, pneumothorax, pulmonary embolus. Data reviewed: vital signs, nurses notes, old medical records, lab test result(s), cardiac enzymes, CBC, electrolytes, urinalysis, EKG, radiologic studies, CT scan. Data interpreted: Pulse oximetry: on room air is 100 %. Interpretation: normal. Counseling: I had a detailed discussion with the patient and/or guardian regarding: the historical points, exam findings, and any diagnostic results supporting the discharge/admit diagnosis, lab results, radiology results, the need for outpatient follow up, to return to the emergency department if symptoms worsen or persist or if there are any questions or concerns that arise at home. 08/22 00:21 Order name: Basic Metabolic Panel; Complete Time: 08/22 00:21 Order name: CBC with Diff; Complete Time: 08/22 00:21 Order name: LFT's; Complete Time: 08/22 00:21 Order name: Magnesium; Complete Time: 08/22 00:21 Order name: NT PRO-BNP; Complete Time: 01: [facility] 08/22 00:21 Order name: PT-INR; Complete Time: : 08/22 00:21 Order name: Troponin (emerg Dept Use Only); Complete Time: : 08/22 00:23 Order name: CT Head Brain wo Cont [facility] 08/22 00:23 Order name: CT Chest For PE Angio [facility] 08/22 00:25 Order name: UDS; Complete Time: 01: [facility] 08/22 00:47 Order name: Urine Dipstick--Ancillary (enter results) [facility] 08/22 00:47 Order name: Urine --Ancillary (enter results) [facility] 08/22 01:29 Order name: Manual Differential; Complete Time: 01:31 [facility] 08/22 00:21 Order name: EKG; Complete Time: 00:22 [facility] 08/22 00:21 Order name: Cardiac monitoring; Complete Time: 01: [facility] 08/22 00:21 Order name: EKG - Nurse/Tech; Complete Time: 01: [facility] 08/22 00:21 Order name: IV Saline Lock; Complete Time: 00:44 08/22 00:21 Order name: Labs collected and sent; Complete Time: 00:44 08/22 00:21 Order name: O2 Per Protocol; Complete Time: 00:44 08/22 00:21 Order name: O2 Sat Monitoring; Complete Time: 00:44 [facility] 08/22 00:25 Order name: Urine Dipstick-Ancillary (obtain specimen); Complete Time: 00:44 [facility] 08/22 00:25 Order name: Urine Test (obtain specimen); Complete Time: 00:44 Administered Medications: 00:46 Drug: NS 0.9% 1000 ml Route: IV; Rate: 1000 ml; Site: right antecubital; rr5 01:50 Follow up: Response: No adverse reaction; IV Status: Completed infusion; IV Intake: rr5 1000ml 00:48 Drug: Reglan 10 mg Route: IVP; Site: right antecubital; rr5 01:50 Follow up: Response: No adverse reaction; Marked relief of symptoms rr5 00:50 Drug: Benadryl 25 mg Route: IVP; Site: right antecubital; rr5 01:50 Follow up: Response: No adverse reaction; Marked relief of symptoms rr5 05:10 Not Given (Other Intervention Used): morphine 2 mg IVP once; RASS on ADMIN: Combtv4, rr5 Very Agttd3, Agttd2, Rstlss1, AlertClm0, Drwsy-1, Lt Sdtn-2, Mod Sdtn-3, Dp Sdtn-4, UnArsble-5 Disposition: 08/22/20 03:35 Discharged to Home. Impression: Pneumonia, Chest Pain. - Condition is Stable. - Discharge Instructions: Nonspecific Chest Pain, [id number], Community-Acquired Pneumonia, Adult, [id number]. - Medication Reconciliation Form, Thank You Letter, Antibiotic Education, Prescription Opioid Use form. - Follow up: Private Physician; When: 1 - 2 days; Reason: Worsening of condition, Recheck today's complaints, Continuance of care, Re-evaluation by your physician. - Problem is an ongoing problem. - Symptoms have improved. Signatures: Dispatcher [employer] EDTerry Fisher RN RN rr5 Reyes Chambers MD MD mh7 Corrections: (The following items were deleted from the chart) 00:29 00:28 The patient or guardian reports chest pain that is located primarily in the mh7 anterior chest wall, mh7 03:57 03:35 08/22/2020 03:35 Discharged to Home. Impression: Pneumonia; Chest Pain. Condition rr5 is Stable. Forms are Medication Reconciliation Form, Thank You Letter, Antibiotic Education, Prescription Opioid Use. Follow up: Private Physician; When: 1 - 2 days; Reason: Worsening of condition, Recheck today's complaints, Continuance of care, Re-evaluation by your physician. Problem is an ongoing problem. Symptoms have improved. mh7
[2020-08-22 04:12] VITALS: BP 121/65; TEMP 98.5; O2SAT 100
--- NOTE | 2020-08-22 10:10 | EKG ---
Test Date: 2020-08-22 Test Time: 00:58:24 Technical Account Manager: NAHUN MEASUREMENT RESULTS: Intervals: Rate: 105 OK: 146 QRSD: 72 QT: 348 QTc: 459 [place]: P: 58 OK: 146 QRS: 31 T: 5 INTERPRETIVE STATEMENTS: Sinus tachycardia Low voltage QRS Borderline ECG Compared to ECG 08/21/2020 13:52:40 T-wave abnormality no longer present Electronically Signed On 08-22-20 10:09:56 BLOCK OUT MACHINE OPERATOR by Bishnu Borrero
--- NOTE | 2020-08-22 12:12 | RAD REPORT ---
EXAM DESCRIPTION: CT - Head Brain Wo Cont - 08/22/2020 4:03 am CLINICAL HISTORY: DIZZINESS COMPARISON: None. TECHNIQUE: Axial unenhanced CT imaging of the brain. Reformatted coronal and sagittal images obtaine d. This examination was performed according to our departmental dose optimization program, which include s automated exposure control, adjustment of the mA and/or kV according to patient size and/or use of iterative reconstruction technique. FINDINGS: Normal ventricle size and contour. Extra-axial fluid spaces appear normal. Rodriguez-white harpreet er differentiation is preserved. There is no intracranial bleed, mass, or midline shift. No evidence of acute large territorial infarction or hyperdense vessel. Normal vermis. The cerebellar tonsils are low-lying without ectopia. Normal sella contents. Intraorbital contents appear normal. Clear paranasal sinuses. Mastoid air cells are clear. Skull base and calvarium are intact. Normal scalp soft tissues. IMPRESSION: 1. Unremarkable CT brain. Electronically signed by: Anika Westfall DO 08/22/2020 1:00 AM CAREERS ADVISER Due to temporary technical issues with the PACS/Fluency reporting system, reports are being signed by the in house radiologists without review as a courtesy to insure prompt reporting. The interpreting radiologist is fully responsible for the content of the report.
--- NOTE | 2020-08-22 12:13 | RAD REPORT ---
EXAM DESCRIPTION: CT - Chest For Pe Angio - 08/22/2020 4:04 am CLINICAL HISTORY: CHEST PAIN COMPARISON: None Available. TECHNIQUE: CTA of the chest obtained following the uncomplicated intravenous administration of iodin ated contrast. 3-D/MIP reformatted images of the chest available for evaluation. FINDINGS: Chest: Pulmonary arteries: Contrast bolus is adequate.No filling defects identified in the pulmonary arterie s to suggest pulmonary embolus. Significant respiratory motion artifact. Thyroid: No abnormalities of the visualized thyroid. Great Vessels: Great vessels have normal anatomic configuration. Thoracic Aorta: No abnormalities of the thoracic aorta identified. Heart: No cardiomegaly, significant pericardial effusion, or coronary artery atherosclerosis Lymph Nodes: No enlarged mediastinal lymph nodes identified. Esophagus: No abnormalities of the esophagus identified. Other: No additional findings. Lungs: Scattered bilateral peripheral groundglass opacities. Pleura: No pleural effusion or pneumothorax. Trachea/Airways: No abnormalities of the visualized trachea or airways. Bones: No destructive osseous lesions. Upper Abdomen: Limited images of the upper abdomen demonstrate no definite abnormalities of visualize d portions of the gallbladder, pancreas, spleen, adrenal glands, or kidneys. Decreased density of t he liver. IMPRESSION: 1. No pulmonary embolus. 2. Few scattered peripheral bilateral groundglass opacities. Commonly reported imaging features of vi ral pneumonia are present. Other processes such as influenza pneumonia and organizing pneumonia, as c an be seen with drug toxicity and connective tissue disease, can cause a similar imaging pattern. Pne Typ Reference: https://pubs.rsna.org/doi/full/10.1148/ryct.3527986647 This exam was performed according to our departmental dose-optimization program, which includes autom ated exposure control, adjustment of the mA and/or kV according to patient size and/or use of iterati ve reconstruction technique. Electronically signed by: Skip Ballard 08/22/2020 1:02 AM BOX FABRICATOR Due to temporary technical issues with the PACS/Fluency reporting system, reports are being signed by the in house radiologists without review as a courtesy to insure prompt reporting. The interpreting radiologist is fully responsible for the content of the report.
== END 2020-08-22 03:57 | disposition home or self-care (01) ==
LOC: ER 22:59
DX: J18.9 Pneumonia, unspecified organism (principal)
CPT/HCPCS: 36415; 70450; 71275; 80048; 80076; 80307; 81003; 81025; 83735; 83880; 84484; 85025; 85610; 93005; 96361; 96374; 96375; 99285; J1200; J2765; J7030; Q9967

== ENCOUNTER 2020-08-24 19:02 | Emergency (ER) | payer SELFPAY, OTHER ==
[2020-08-24 19:39] LABS: Absolute Lymphocytes (CBC) 0.6 K/uL (0.7-4.9); Basophils % 0.5 % (0-1.3); Hematocrit 40.8 % (36.0-45.0); Lymphocytes % 11.8 % (15.3-44.8); MPV 9.7 fL (7.6-11.3); RBC Red Blood Cell Count 4.74 M/uL (3.86-4.86)
[2020-08-24 19:42] LABS: Protime INR 1.05
[2020-08-24 19:58] LABS: ALT/SGPT 71 U/L (12-78); AST/SGOT 33 U/L (15-37); Albumin 3.6 g/dL (3.4-5.0); Alkaline Phosphatase 43 U/L (45-117); BUN Blood Urea Nitrogen 6 mg/dL (7-18); Bicarbonate 26 mmol/L (21-32); Bilirubin Direct 0.1 mg/dL (0-0.2); Bilirubin Total 0.3 mg/dL (0.2-1.0); Glucose Level 112 mg/dL (74-106); Magnesium 2.2 mg/dL (1.8-2.4); NT PRO-BNP 7 pg/mL (<125); Potassium 3.8 mmol/L (3.5-5.1); Protein, Total 8.3 g/dL (6.4-8.2); Sodium Level 142 mmol/L (136-145); Troponin (Emerg Dept Use Only) < 0.02 ng/mL (0.0-0.045)
[2020-08-24 20:05] LABS: Urine Blood TRACE (NEG); Urine Glucose NEGATIVE (NEG); Urine Protein NEGATIVE (NEG); Urine Specific Gravity 1.015 (1.005-1.030)
--- NOTE | 2020-08-24 20:09 | RAD REPORT ---
EXAM DESCRIPTION: RAD - Chest Single View - 08/24/2020 7:58 pm CLINICAL HISTORY: chest tightness COMPARISON: PE study August 22 TECHNIQUE: AP portable chest image was obtained 08/24/2020 7:58 pm . FINDINGS: Lung volumes are low and very large body habitus contribute to significantly limit the por table examination. Hazy opacification over both lower lung johnson is probably body habitus affects. True abnormality of the lung parenchyma is unlikely. Heart size is upper normal. Vasculature within normal limits. No pne umothorax. No acute bony abnormality seen. No acute aortic findings suspected. IMPRESSION: Hazy opacification over the right lung field and lower left lung field are similar or im proved from prior day imaging. Very large body habitus and shallow inspiration are significantly limiting factors in making an asses sment.
[2020-08-24] MEDS ORDERED: NA CHLORIDE 0.9% 1,000 ML ONE (20:17)
[2020-08-24] MEDS ORDERED: dexAMETHasone 4 MG/ML VIAL ONE (20:17)
[2020-08-24] MEDS ORDERED: METOCLOPRAMIDE 10 MG/2mL INJ ONE (20:17)
[2020-08-24] MEDS ORDERED: KETOROLAC 30 MG/ML INJ ONE (20:17)
--- NOTE | 2020-08-24 21:01 | ER ---
Nurse's Notes [facility] Name: Larry Morton Age: 35 yrs Sex: Female : 1985 Arrival Date: 08/24/2020 Time: 19:02 Bed 5 Private MD: Diagnosis: Coronavirus infection, unspecified;Pneumonia due to other specified infectious organisms Presentation: 08/24 19:13 Chief complaint: Patient states: Chest tightness continues since visit here last week. ll1 Was called today and told she is covid positive. + SOB and cough. Diarrhea started today. Coronavirus screen: Client denies travel out of the [place] in the last 14 days. congestion, cough unrelated to allergies, fatigue, shortness of breath, Client presents with at least one sign or symptom that may indicate coronavirus-19. Standard/surgical mask placed on the client. Client reports previous positive COVID test result. Ebola Screen: Patient denies travel to an Ebola-affected area in the 21 days before illness onset. Initial Sepsis Screen: Does the patient meet any 2 criteria? HR > 90 bpm. No. Patient's initial sepsis screen is negative. Does the patient have a suspected source of infection? Yes: Productive cough/pneumonia. Risk Assessment: Do you want to hurt yourself or someone else? Patient reports no desire to harm self or others. Onset of symptoms was August 20, 2020. 19:13 Method Of Arrival: Wheelchair ll 19:13 Acuity: CELESTINO 3 ll1 Historical: - Allergies: 19:15 No Known Allergies; ll1 - PSHx: 19:15 None; ll1 - Immunization history:: Flu vaccine is not up to date. - Social history:: Smoking status: Patient denies any tobacco usage or history of. Screenin:06 Abuse screen: Denies threats or abuse. Nutritional screening: No deficits noted. jb4 Tuberculosis screening: No symptoms or risk factors identified. Fall Risk None identified. Assessment: 19:06 General: Appears in no apparent distress. uncomfortable, Behavior is calm, cooperative, jb4 appropriate for age. Pain: Complains of pain in chest Pain does not radiate. Pain currently is 8 out of 10 on a pain scale. Quality of pain is described as tighness Pain began 2-3 days ago. Is continuous. Neuro: Level of Consciousness is awake, alert, obeys commands, Oriented to person, place, time, situation. Cardiovascular: Patient's skin is warm and dry. Respiratory: Airway is patent Respiratory effort is even, unlabored, Respiratory pattern is regular, symmetrical, Breath sounds are clear bilaterally. GI: Reports diarrhea. : No signs and/or symptoms were reported regarding the genitourinary system. EENT: No signs and/or symptoms were reported regarding the EENT system. Derm: Skin is intact, Skin is dry, Skin is normal, Skin temperature is warm. Musculoskeletal: Circulation, motion, and sensation intact. Range of motion: intact in all extremities. 19:15 Reassessment: Provider at the bedside performing initial assessment. jb4 20:19 Reassessment: Patient appears in no apparent distress at this time. Patient and/or jb4 family updated on plan of care and expected duration. Pain level reassessed. Patient is alert, oriented x 3, equal unlabored respirations, skin warm/dry/pink. 21:00 Reassessment: PT ambulated with pulse ox monitoring, heart rate elevated to 122, desat jb4 to 92% on RA. Provider notified, sepideh'ed pt for discharge. 21:12 Reassessment: Patient appears in no apparent distress at this time. Patient and/or jb4 family updated on plan of care and expected duration. Pain level reassessed. Patient is alert, oriented x 3, equal unlabored respirations, skin warm/dry/pink. PT verbalized understanding of d/c and follow up instructions. Vital Signs: 19:13 BP 139 / 94; Pulse 100; Resp 18; Temp 98.9; Pulse Ox 98% ; Weight 131.54 kg; Height 5 ll1 ft. 4 in. (162.56 cm); Pain 8/10; 20:19 BP 122 / 84; Pulse 96; Resp 20; Pulse Ox 97% on R/A; jb4 20:30 BP 135 / 84; Pulse 80; Resp 20; Pulse Ox 97% on R/A; jb4 19:13 Body Mass Index 49.78 (131.54 kg, 162.56 cm) ll1 ED Course: 19:02 Patient arrived in ED. cl3 19:06 Luis Carlos Galicia PA is PHCP. cp 19:06 Patient has correct armband on for positive identification. Pulse ox on. NIBP on. jb4 19:06 Patient maintains SpO2 saturation greater than 95% on room air. jb4 19:07 Luis Carlos Amos MD is Attending Physician. cp 19:12 Lonnie Ortiz, RN is Primary Nurse. jb4 19:15 Triage completed. ll1 19:15 Arm band placed on Patient placed in an exam room, on a stretcher. ll1 19:30 Initial lab(s) drawn, by me, sent to lab. Inserted saline lock: 20 gauge in right jb4 antecubital area, using aseptic technique. Blood collected. 19:56 XRAY Chest (1 view) In Process Unspecified. EDMS 21:15 No provider procedures requiring assistance completed. IV discontinued, intact, jb4 bleeding controlled, No redness/swelling at site. Pressure dressing applied. Administered Medications: 20:10 Drug: TORadol - Ketorolac 15 mg Route: IVP; Site: right antecubital; jb4 20:40 Follow up: Response: No adverse reaction; Pain is decreased jb4 20:10 Drug: Reglan 10 mg Route: IVP; Site: right antecubital; jb4 20:40 Follow up: Response: No adverse reaction jb4 20:12 Drug: NS 0.9% 1000 ml Route: IV; Rate: 1000 ml/hr; Site: right antecubital; jb4 21:11 Follow up: Response: No adverse reaction; IV Status: Order to discontinue infusion; IV jb4 Intake: 700ml 20:12 Drug: Decadron - Dexamethasone 6 mg Route: IVP; Site: right antecubital; jb4 20:40 Follow up: Response: No adverse reaction jb4 Intake: 21:11 IV: 700ml; Total: 700ml. jb4 Outcome: 21:01 Discharge ordered by . cp 21:13 Patient left the ED. mw2 21:16 Discharged to home via wheelchair, with family. jb4 21:16 Condition: stable 21:16 Discharge instructions given to patient, Instructed on discharge instructions, follow up and referral plans. medication usage, Demonstrated understanding of instructions, follow-up care, medications, Prescriptions given X 1. Signatures: Dispatcher [employer] EDDE Luis Carlos Galicia PA PA cp Bryson, James, RN RN jb4 Hermila Goldman mw2 Loyda Cote cl3 Jeannie Cote RN RN ll1
--- NOTE | 2020-08-24 21:02 | EDPHYS ---
Physician Documentation [facility] Name: Larry Morton Age: 35 yrs Sex: Female : 1985 Arrival Date: 08/24/2020 Time: 19:02 Bed 5 Private MD: ED Physician Luis Carlos Amos HPI: 08/24 19:35 This 35 yrs old Black Female presents to ER via Wheelchair with complaints of Chest cp Tightness. 19:35 The patient or guardian reports chest pain that is located primarily in the anterior cp chest wall, bilaterally. 19:35 Associated signs and symptoms: Pertinent positives: cough, headache, shortness of cp breath, Pertinent negatives: syncope, vomiting. The chest pain is described as tightness. Duration: The patient or guardian reports a single episode, that is still ongoing, started 3 days ago. 19:35 Patient's results of COVID-19 testing returned positive today. cp Historical: - Allergies: 19:15 No Known Allergies; ll1 - PSHx: 19:15 None; ll1 - Immunization history:: Flu vaccine is not up to date. - Social history:: Smoking status: Patient denies any tobacco usage or history of. ROS: 19:40 Eyes: Negative for injury, pain, redness, and discharge. cp 19:40 Constitutional: Negative for body aches, chills, fever, poor PO intake. 19:40 ENT: Negative for ear pain, sore throat, difficulty swallowing, difficulty handling secretions. 19:40 Cardiovascular: Positive for chest tightness, Negative for palpitations. 19:40 Respiratory: Positive for cough, shortness of breath, Negative for wheezing. 19:40 Abdomen/GI: Negative for abdominal pain, vomiting, diarrhea, constipation, black/tarry stool, rectal bleeding. 19:40 Back: Negative for radiated pain. 19:40 : Negative for urinary symptoms. 19:40 Neuro: Negative for altered mental status, headache, numbness, weakness. 19:40 All other systems are negative. Exam: 19:40 ECG was reviewed by the Attending Physician. cp 19:49 Head/Face: Normocephalic, atraumatic. cp 19:49 Constitutional: The patient appears in no acute distress, alert, awake, non-diaphoretic, non-toxic, well developed, well nourished, obese. 19:49 Eyes: Periorbital structures: appear normal, Conjunctiva: normal, no exudate, no injection, Sclera: no appreciated abnormality, Lids and lashes: appear normal, bilaterally. 19:49 ENT: External ear(s): are unremarkable, Nose: is normal, Mouth: Lips: moist, Oral mucosa: moist, Posterior pharynx: Airway: no evidence of obstruction, patent. 19:49 Neck: ROM/movement: is normal, is supple, without pain, no range of motions limitations, no meningismus. 19:49 Chest/axilla: Inspection: normal, Palpation: is normal, no crepitus, no tenderness. 19:49 Cardiovascular: Rate: tachycardic, Rhythm: regular, Edema: is not appreciated, JVD: is not appreciated. 19:49 Respiratory: the patient does not display signs of respiratory distress, Respirations: normal, no use of accessory muscles, no retractions, labored breathing, is not present, Breath sounds: decreased breath sounds, are not appreciated, stridor, is not appreciated, wheezing: is not appreciated. 19:49 Abdomen/GI: Exam negative for discomfort, distension, guarding, Inspection: abdomen appears normal. 19:49 Back: pain, is absent, ROM is normal. 19:49 Skin: no rash present. 19:49 Neuro: Orientation: to person, place \T\ time. Mentation: is normal, Motor: moves all fours, strength is normal. Vital Signs: 19:13 BP 139 / 94; Pulse 100; Resp 18; Temp 98.9; Pulse Ox 98% ; Weight 131.54 kg; Height 5 ll1 ft. 4 in. (162.56 cm); Pain 8/10; 20:19 BP 122 / 84; Pulse 96; Resp 20; Pulse Ox 97% on R/A; jb4 20:30 BP 135 / 84; Pulse 80; Resp 20; Pulse Ox 97% on R/A; jb4 19:13 Body Mass Index 49.78 (131.54 kg, 162.56 cm) ll1 MDM: 19:07 Patient medically screened. jase 21:00 Data reviewed: vital signs, nurses notes, lab test result(s), EKG, radiologic studies, cp plain films, I have discussed the patient's presentation/case with the attending Emergency Department Physician;. 21:00 Test interpretation: by ED physician or midlevel provider: ECG, plain radiologic cp studies. Counseling: I had a detailed discussion with the patient and/or guardian regarding: the historical points, exam findings, and any diagnostic results supporting the discharge/admit diagnosis, lab results, radiology results. ED course: VSS. Patient observed ambulating in ED with pulse oximeter reading 93% or better on room air. Chest pain improved with meds. Will discharge to home for continued monitoring. 08/24 19:23 Order name: Basic Metabolic Panel; Complete Time: 20:00 08/24 20:00 Interpretation: Normal except: CL 108; GLUC 112; BUN 6. 08/24 19:23 Order name: CBC with Diff; Complete Time: 20:00 08/24 20:07 Interpretation: Normal except: GRANT% 80.5; LYM% 11.8; LYMA 0.6. 08/24 19:23 Order name: LFT's; Complete Time: 20:00 08/24 20:07 Interpretation: Normal except: ALK 43; TP 8.3; GLOB 4.7; A/G 0.8. 08/24 19:23 Order name: Magnesium; Complete Time: 20:00 08/24 19:23 Order name: NT PRO-BNP; Complete Time: 20:00 08/24 19:23 Order name: PT-INR; Complete Time: 20:00 08/24 19:23 Order name: Troponin (emerg Dept Use Only); Complete Time: 20:00 08/24 20:01 Interpretation: Within normal limits: TROPED < 0.02. 08/24 19:23 Order name: XRAY Chest (1 view); Complete Time: 20:13 08/24 20:13 Interpretation: Report review. 08/24 20:02 Order name: Urine Dipstick--Ancillary (enter results); Complete Time: 20:06 [facility] 08/24 20:02 Order name: Urine --Ancillary (enter results); Complete Time: 20:06 2 08/24 19:23 Order name: EKG; Complete Time: 19:24 08/24 19:23 Order name: Cardiac monitoring; Complete Time: 19:34 08/24 19:23 Order name: EKG - Nurse/Tech; Complete Time: 19:34 08/24 19:23 Order name: IV Saline Lock; Complete Time: 19:34 cp 08/24 19:23 Order name: Labs collected and sent; Complete Time: 19:34 cp 08/24 19:23 Order name: O2 Per Protocol; Complete Time: 19:34 cp 08/24 19:23 Order name: O2 Sat Monitoring; Complete Time: 19:34 cp 08/24 19:28 Order name: Urine Dipstick-Ancillary (obtain specimen); Complete Time: 20:17 cp 08/24 19:28 Order name: Urine Test (obtain specimen); Complete Time: 20:17 cp 08/24 20:03 Order name: Misc. Order: ambulate patient with pulse oximetry; Complete Time: 21:11 cp EC:40 Rate is 89 beats/min. Rhythm is regular. ID interval is normal. QRS interval is normal. cp QT interval is normal. T waves are Inverted in leads III, aVR. Interpreted by me. Reviewed by me. Administered Medications: 20:10 Drug: TORadol - Ketorolac 15 mg Route: IVP; Site: right antecubital; jb4 20:40 Follow up: Response: No adverse reaction; Pain is decreased jb4 20:10 Drug: Reglan 10 mg Route: IVP; Site: right antecubital; jb4 20:40 Follow up: Response: No adverse reaction jb4 20:12 Drug: NS 0.9% 1000 ml Route: IV; Rate: 1000 ml/hr; Site: right antecubital; jb4 21:11 Follow up: Response: No adverse reaction; IV Status: Order to discontinue infusion; IV jb4 Intake: 700ml 20:12 Drug: Decadron - Dexamethasone 6 mg Route: IVP; Site: right antecubital; jb4 20:40 Follow up: Response: No adverse reaction jb4 Disposition: 08/25 09:50 Co-signature as Attending Physician, Luis Carlos Amos MD I agree with the assessment and jase plan of care. Disposition: 08/24/20 21:01 Discharged to Home. Impression: Coronavirus infection, unspecified, Pneumonia due to other specified infectious organisms. - Condition is Stable. - Discharge Instructions: Community-Acquired Pneumonia, Adult, COVID-19. - Prescriptions for Albuterol Sulfate 90 mcg/actuation - inhale 1-2 puff by INHALATION route every 4-6 hours; 1 Inhaler. - Medication Reconciliation Form, Thank You Letter, Antibiotic Education, Prescription Opioid Use form. - Follow up: Private Physician; When: 1 - 2 days; Reason: Worsening of condition. - Problem is an ongoing problem. - Symptoms have improved. Signatures: Dispatcher [employer] EDKS Luis Carlos Amos MD MD cha Page, Corey, PA PA cp Lonnie Ortiz, RN RN jb4 Hermila Goldman mw2 Jeannie Cote RN RN ll1 Corrections: (The following items were deleted from the chart) 08/24 20:07 20:00 Normal except: GRANT% 80.5; LYM% 11.8. cp cp 21:13 21:01 08/24/2020 21:01 Discharged to Home. Impression: Coronavirus infection, mw2 unspecified; Pneumonia due to other specified infectious organisms. Condition is Stable. Forms are Medication Reconciliation Form, Thank You Letter, Antibiotic Education, Prescription Opioid Use. Follow up: Private Physician; When: 1 - 2 days; Reason: Worsening of condition. Problem is an ongoing problem. Symptoms have improved. cp
[2020-08-24 21:37] VITALS: TEMP 98.9
[2020-08-24 21:38] VITALS: O2SAT 97
[2020-08-24 21:50] VITALS: BP 135/84
--- NOTE | 2020-08-25 07:16 | EKG ---
Test Date: 2020-08-24 Test Time: 19:32:29 Press Operator: NAHUN MEASUREMENT RESULTS: Intervals: Rate: 89 GA: 142 QRSD: 78 QT: 358 QTc: 435 [place]: P: 44 GA: 142 QRS: -1 T: -2 INTERPRETIVE STATEMENTS: Normal sinus rhythm Anterior infarct, age undetermined Abnormal ECG Compared to ECG 08/22/2020 00:58:24 Myocardial infarct finding now present Sinus tachycardia no longer present Electronically Signed On 08-25-20 07:16:02 SPAR CAP BEVELER by Bishnu Borrero
== END 2020-08-24 21:13 | disposition home or self-care (01) ==
LOC: ER 19:02
DX: U07.1 COVID-19 (principal); J16.8 Pneumonia due to other specified infectious organisms
CPT/HCPCS: 36415; 71045; 80048; 80076; 81003; 81025; 83735; 83880; 84484; 85025; 85610; 93005; 96361; 96374; 96375; 99284; J1100; J2765; J7030

== ENCOUNTER 2020-08-27 16:19 | Inpatient (IN) | payer OTHER, SELFPAY ==
[2020-08-27 17:13] LABS: Absolute Lymphocytes (CBC) 1.2 K/uL (0.7-4.9); Basophils % 0.4 % (0-1.3); Hematocrit 41.3 % (36.0-45.0); Lymphocytes % 19.4 % (15.3-44.8); MPV 9.5 fL (7.6-11.3); RBC Red Blood Cell Count 4.79 M/uL (3.86-4.86)
[2020-08-27 17:14] LABS: Protime INR 1.16
--- NOTE | 2020-08-27 17:20 | RAD REPORT ---
EXAM DESCRIPTION: Traci Single View08/27/2020 5:07 pm CLINICAL HISTORY: Shortness of breath COMPARISON: August 24, 2020 FINDINGS: Mild right pulmonary opacities without significant change. The left lung appears clear of acute infiltrate. Heart is mildly enlarged IMPRESSION: Mild right lung opacities probably pneumonia
[2020-08-27] MEDS ORDERED: dexAMETHasone 4 MG/ML VIAL ONE (17:28)
[2020-08-27] MEDS ORDERED: CEFTRIAXONE/SWI 1gm 1 GM/10 ML SYR ONE (17:28)
[2020-08-27 17:31] LABS: C-Reactive Protein 57.2 mg/L (<3.00); Ferritin 114.5 ng/mL (8-388)
[2020-08-27 17:32] LABS: ALT/SGPT 51 U/L (12-78); AST/SGOT 31 U/L (15-37); Albumin 3.2 g/dL (3.4-5.0); Alkaline Phosphatase 40 U/L (45-117); BUN Blood Urea Nitrogen 6 mg/dL (7-18); Bicarbonate 26 mmol/L (21-32); Bilirubin Direct < 0.1 mg/dL (0-0.2); Bilirubin Total 0.3 mg/dL (0.2-1.0); Glucose Level 102 mg/dL (74-106); Magnesium 2.2 mg/dL (1.8-2.4); Potassium 3.2 mmol/L (3.5-5.1); Protein, Total 8.3 g/dL (6.4-8.2); Sodium Level 140 mmol/L (136-145); Troponin (Emerg Dept Use Only) < 0.02 ng/mL (0.0-0.045)
[2020-08-27 17:35] LABS: NT PRO-BNP < 5 pg/mL (<125)
--- NOTE | 2020-08-27 18:11 | EDPHYS ---
Physician Documentation [facility] Name: Larry Morton Age: 35 yrs Sex: Female : 1985 Arrival Date: 08/27/2020 Time: 16:21 Bed 20 Private MD: ED Physician Mickey Maurer HPI: 08/27 18:12 This 35 yrs old Black Female presents to ER via Ambulatory with complaints of Shortness kdr Of Breath. 18:12 The patient has shortness of breath at rest. Onset: The symptoms/episode began/occurred kdr gradually, 1 week(s) ago. Duration: The symptoms are continuous, and are steadily getting worse. The patient's shortness of breath is aggravated by coughing, exertion, light activity. Associated signs and symptoms: Pertinent positives: chest pain, non-productive cough. Severity of symptoms: At their worst the symptoms were moderate incapacitating in the emergency department the symptoms are unchanged. The patient has not experienced similar symptoms in the past. The patient has not recently seen a physician. Historical: - Allergies: 16:24 No Known Allergies; ll1 - PMHx: 16:24 covid +; ll1 - PSHx: 16:24 None; ll1 - Immunization history:: Flu vaccine is up to date. - Social history:: Smoking status: Patient denies any tobacco usage or history of. ROS: 18:12 Constitutional: Negative for fever, chills, and weight loss, Eyes: Negative for injury, kdr pain, redness, and discharge, ENT: Negative for injury, pain, and discharge, Neck: Negative for injury, pain, and swelling, Cardiovascular: Negative for chest pain, palpitations, and edema, Abdomen/GI: Negative for abdominal pain, nausea, vomiting, diarrhea, and constipation, Back: Negative for injury and pain, : Negative for injury, bleeding, discharge, and swelling, MS/Extremity: Negative for injury and deformity, Skin: Negative for injury, rash, and discoloration, Neuro: Negative for headache, weakness, numbness, tingling, and seizure activity. Psych: Negative for depression, anxiety, suicide ideation, homicidal ideation, and hallucinations, Allergy/Immunology: Negative for hives, rash, and allergies, Endocrine: Negative for neck swelling, polydipsia, polyuria, polyphagia, and marked weight changes, Hematologic/Lymphatic: Negative for swollen nodes, abnormal bleeding, and unusual bruising. 18:12 Respiratory: Positive for cough, with no reported sputum, dyspnea on exertion, shortness of breath, at rest. Negative for hemoptysis, orthopnea, pleurisy. 18:12 Abdomen/GI: Exam: 16:59 ECG was reviewed by the Attending Physician. kdr 18:12 Constitutional: This is a well developed, well nourished patient who is awake, alert, kdr and in no acute distress. Head/Face: Normocephalic, atraumatic. Eyes: Pupils equal round and reactive to light, extra-ocular motions intact. Lids and lashes normal. Conjunctiva and sclera are non-icteric and not injected. Cornea within normal limits. Periorbital areas with no swelling, redness, or edema. Neck: Trachea midline, no thyromegaly or masses palpated, and no cervical lymphadenopathy. Supple, full range of motion without nuchal rigidity, or vertebral point tenderness. No Meningismus. Chest/axilla: Normal chest wall appearance and motion. Nontender with no deformity. No lesions are appreciated. Cardiovascular: Regular rate and rhythm with a normal S1 and S2. No gallops, murmurs, or rubs. Normal PMI, no JVD. No pulse deficits. Abdomen/GI: Soft, non-tender, with normal bowel sounds. No distension or tympany. No guarding or rebound. No evidence of tenderness throughout. Back: No spinal tenderness. No costovertebral tenderness. Full range of motion. Skin: Warm, dry with normal turgor. Normal color with no rashes, no lesions, and no evidence of cellulitis. MS/ Extremity: Pulses equal, no cyanosis. Neurovascular intact. Full, normal range of motion. Neuro: Awake and alert, GCS 15, oriented to person, place, time, and situation. Cranial nerves II-XII grossly intact. Motor strength 5/5 in all extremities. Sensory grossly intact. Cerebellar exam normal. Normal gait. Psych: Awake, alert, with orientation to person, place and time. Behavior, mood, and affect are within normal limits. 18:12 Respiratory: mild respiratory distress is noted, Respirations: labored breathing, Breath sounds: are clear throughout. Vital Signs: 16:40 Pulse 122; Resp 30; Temp 99.5; Pulse Ox 90% on R/A; sv 17:37 BP 127 / 77; Pulse 123 MON; Resp 25; Pulse Ox 96% on 2 lpm NC; sv 18:53 BP 115 / 77; Pulse 107 MON; Resp 22; Pulse Ox 96% on 2 lpm NC; sv 19:00 BP 118 / 78; Pulse 104; Resp 20; Pulse Ox 97% on 2 lpm NC; jb4 19:45 BP 115 / 64; Pulse 103; Resp 16; Pulse Ox 96% on R/A; jb4 17:37 Sinus tachycardia sv 18:53 Sinus tachycardia sv 16:40 Pt palced on O2 \T\ 2L per NC. O2 sat up to 97%. sv MDM: 18:11 Patient medically screened. kdr 18:12 Data reviewed: vital signs, lab test result(s), EKG, radiologic studies. Counseling: I kdr had a detailed discussion with the patient and/or guardian regarding: the historical points, exam findings, and any diagnostic results supporting the discharge/admit diagnosis, lab results, radiology results, the need for further work-up and treatment in the hospital. Physician consultation: Dakota Soria MD regarding admission, and will see patient in ED. Physician consultation: Umesh Hawkins MD regarding consult, patient's condition, need to evaluate the patient as soon as possible, and will see patient in inpatient room, later today. 08/27 16:27 Order name: Basic Metabolic Panel; Complete Time: 18:06 kdr 08/27 16:27 Order name: CBC with Diff; Complete Time: 18:06 kdr 08/27 16:27 Order name: LFT's; Complete Time: 18:06 kdr 08/27 16:27 Order name: Magnesium; Complete Time: 18:06 kdr 08/27 16:27 Order name: NT PRO-BNP; Complete Time: 18:06 kdr 08/27 16:27 Order name: PT-INR; Complete Time: 18:06 kdr 08/27 16:27 Order name: Troponin (emerg Dept Use Only); Complete Time: 18:06 kdr 08/27 16:37 Order name: Blood Culture Adult (2) kdr 08/27 16:37 Order name: C-Reactive Protein; Complete Time: 18:06 kdr 08/27 16:37 Order name: COVID-19 kdr 08/27 16:37 Order name: D-Dimer; Complete Time: 18:06 kdr 08/27 16:37 Order name: Ferritin; Complete Time: 18:06 kdr 08/27 16:37 Order name: Flu; Complete Time: 18:06 kdr 08/27 16:37 Order name: Lactate; Complete Time: 18:06 kdr 08/27 16:37 Order name: Lipase; Complete Time: 18:06 kdr 08/27 16:37 Order name: Procalcitonin; Complete Time: 18:06 kdr 08/27 16:37 Order name: Ptt, Activated; Complete Time: 18:06 kdr 08/27 16:37 Order name: Strep; Complete Time: 18:06 kdr 08/27 16:37 Order name: Urine Microscopic Only [facility] 08/27 18:06 Order name: Throat Culture [facility] 08/27 18:37 Order name: Basic Metabolic Panel [facility] 08/27 18:37 Order name: Basic Metabolic Panel [facility] 08/27 18:37 Order name: CBC with Automated Diff [facility] 08/27 18:37 Order name: CBC with Automated Diff [facility] 08/27 18:37 Order name: NT PRO-BNP [facility] 08/27 18:37 Order name: NT PRO-BNP [facility] 08/27 20:26 Order name: Urine Dipstick--Ancillary (enter results) nc 08/27 20:26 Order name: Urine --Ancillary (enter results) nc 08/27 20:29 Order name: Urine --Ancillary [facility] 08/27 20:29 Order name: Urine Dipstick-Ancillary [facility] 08/27 16:27 Order name: XRAY Chest (1 view); Complete Time: 18:06 [facility] 08/27 16:27 Order name: EKG; Complete Time: 16:28 kdr 08/27 16:27 Order name: Cardiac monitoring; Complete Time: 17:13 kdr 08/27 16:27 Order name: EKG - Nurse/Tech; Complete Time: 17:13 kdr 08/27 16:27 Order name: IV Saline Lock; Complete Time: 17:13 kdr 08/27 16:27 Order name: Labs collected and sent; Complete Time: 17:13 kdr 08/27 16:27 Order name: O2 Per Protocol; Complete Time: 17:13 kdr 08/27 16:27 Order name: O2 Sat Monitoring; Complete Time: 17:13 kdr 08/27 16:37 Order name: Droplet/Contact Precautions; Complete Time: 17:13 kdr 11 18:37 Order name: Regular EDMS EC:59 Rate is 123 beats/min. Rhythm is regular, Sinus tachycardia with No ectopy. QRS [place] is kdr Normal. GA interval is normal. QRS interval is normal. QT interval is normal. Clinical impression: Sinus tachycardia. Administered Medications: 17:30 Drug: Decadron - Dexamethasone 10 mg Route: IVP; Site: right antecubital; sv 17:36 Follow up: Response: No adverse reaction sv 17:34 Drug: Rocephin - (cefTRIAXone) 1 grams Route: IVPB; Infused Over: 30 mins; Site: right sv antecubital; 17:36 Follow up: Response: No adverse reaction; IV Status: Completed infusion; IV Intake: sv 10ml ; to be given IVP per pharmacy Disposition: 08/27/20 18:11 Hospitalization ordered by Dakota Soria for Inpatient Admission. Preliminary diagnosis is Pneumonia, unspecified organism. - Bed requested for Intensive Care Unit. - Status is Inpatient Admission. jb4 - Condition is Fair. - Problem is new. - Symptoms are unchanged. Signatures: Dispatcher [employer] EDWI Shonda Tatum RN RN sv Woody, Diana RN Mickey Tejada MD MD [facility] Lonnie Ortiz RN RN jb4 Jeannie Cote RN RN ll1 Corrections: (The following items were deleted from the chart) 17:12 16:37 Document PUI# ordered. [facility] sv 17:13 16:37 Not[facility] [phone]/ ordered. [facility] sv 18:58 18:11 Hospitalization Ordered by Dakota Soria MD for Inpatient Admission. Preliminary dw diagnosis is Pneumonia, unspecified organism. Bed requested for Telemetry/MedSurg (Inpatient). Status is Inpatient Admission. Condition is Fair. Problem is new. Symptoms are unchanged. kdr 21:04 18:58 08/27/2020 18:11 Hospitalization Ordered by Dakota Soria MD for Inpatient jb4 Admission. Preliminary diagnosis is Pneumonia, unspecified organism. Bed requested for Intensive Care Unit. Status is Inpatient Admission. Condition is Fair. Problem is new. Symptoms are unchanged. dw
--- NOTE | 2020-08-27 18:11 | ER ---
Nurse's Notes [facility] Name: Larry Morton Age: 35 yrs Sex: Female : 1985 Arrival Date: 08/27/2020 Time: 16:21 Bed 20 Private MD: Diagnosis: Pneumonia, unspecified organism Presentation: 08/27 16:21 Chief complaint: Patient states: SOB for 3 days. + generalized weakness. Covid positive ll1 last week. Coronavirus screen: Client denies travel out of the [place] in the last 14 days. congestion, cough unrelated to allergies, difficulty breathing, shortness of breath, Client presents with at least one sign or symptom that may indicate coronavirus-19. Standard/surgical mask placed on the client. Client reports previous positive COVID test result. Ebola Screen: Patient denies travel to an Ebola-affected area in the 21 days before illness onset. Initial Sepsis Screen: Does the patient meet any 2 criteria? Does the patient have a suspected source of infection? Yes: Productive cough/pneumonia. Risk Assessment: Do you want to hurt yourself or someone else? Patient reports no desire to harm self or others. Onset of symptoms was August 24, 2020. 16:21 Method Of Arrival: Ambulatory ll1 16:21 Acuity: CELESTINO 2 ll1 16:21 Note Pt was 87% on RA at home per EMS. sv 16:24 Chief complaint: EMS states: 87% RA, HR 135. Vitals otherwise normal. ll1 Triage Assessment: 16:25 General: Appears in no apparent distress. comfortable, obese, well developed, Behavior sv is calm, cooperative, appropriate for age. Pain: Denies pain. Neuro: Level of Consciousness is awake, alert, obeys commands, Oriented to person, place, time, situation, Moves all extremities. Full function Gait is steady, Speech is normal. Cardiovascular: Patient's skin is warm and dry. Rhythm is sinus tachycardia. Respiratory: Reports shortness of breath at rest on exertion laying flat Airway is patent Respiratory effort is even, unlabored, Respiratory pattern is symmetrical, tachypnea Onset: The symptoms/episode began/occurred since about Sunday last week, the patient has mild shortness of breath. Derm: Skin is intact, Skin is pink, warm \T\ dry. Historical: - Allergies: 16:24 No Known Allergies; ll1 - PMHx: 16:24 covid +; ll1 - PSHx: 16:24 None; ll1 - Immunization history:: Flu vaccine is up to date. - Social history:: Smoking status: Patient denies any tobacco usage or history of. Screenin:30 Fall Risk None identified. sv 18:05 Abuse screen: Denies threats or abuse. Denies injuries from another. Nutritional sv screening: No deficits noted. Tuberculosis screening: No symptoms or risk factors identified. Assessment: 17:30 Reassessment: Patient appears in no apparent distress at this time. Patient and/or sv family updated on plan of care and expected duration. Pain level reassessed. Patient is alert, oriented x 3, equal unlabored respirations, skin warm/dry/pink. Pt reports the O2 has made her feel better Patient states feeling better. Patient states symptoms have improved. 18:06 Reassessment: Patient appears in no apparent distress at this time. Patient and/or sv family updated on plan of care and expected duration. Pain level reassessed. Patient is alert, oriented x 3, equal unlabored respirations, skin warm/dry/pink. Patient states feeling better. Patient states symptoms have improved. 19:19 Reassessment: Patient appears in no apparent distress at this time. Patient and/or jb4 family updated on plan of care and expected duration. Pain level reassessed. Patient is alert, oriented x 3, equal unlabored respirations, skin warm/dry/pink. 19:45 Reassessment: Patient appears in no apparent distress at this time. Patient and/or jb4 family updated on plan of care and expected duration. Pain level reassessed. Patient is alert, oriented x 3, equal unlabored respirations, skin warm/dry/pink. Report called to ISMAEL Madsen. 21:03 Reassessment: Patient appears in no apparent distress at this time. Patient and/or jb4 family updated on plan of care and expected duration. Pain level reassessed. Patient is alert, oriented x 3, equal unlabored respirations, skin warm/dry/pink. Vital Signs: 16:40 Pulse 122; Resp 30; Temp 99.5; Pulse Ox 90% on R/A; sv 17:37 BP 127 / 77; Pulse 123 MON; Resp 25; Pulse Ox 96% on 2 lpm NC; sv 18:53 BP 115 / 77; Pulse 107 MON; Resp 22; Pulse Ox 96% on 2 lpm NC; sv 19:00 BP 118 / 78; Pulse 104; Resp 20; Pulse Ox 97% on 2 lpm NC; jb4 19:45 BP 115 / 64; Pulse 103; Resp 16; Pulse Ox 96% on R/A; jb4 17:37 Sinus tachycardia sv 18:53 Sinus tachycardia sv 16:40 Pt palced on O2 \T\ 2L per NC. O2 sat up to 97%. sv ED Course: 16:21 Patient arrived in ED. ll1 16:23 Triage completed. ll1 16:24 Arm band placed on Patient placed in an exam room, on a stretcher. ll1 16:25 Patient has correct armband on for positive identification. Placed in gown. Bed in low sv position. Call light in reach. Side rails up X2. Adult w/ patient. environmental monitoring technician on. Pulse ox on. NIBP on. Door closed. Head of bed elevated. Patient placed on droplet and contact precautions with eye protection. 16:26 Mickey Maurer MD is Attending Physician. kdr 16:29 Shonda Tatum, ISMAEL is Primary Nurse. sv 16:40 First set of blood cultures drawn by ED staff, Flu and/or RSV swab sent to lab. Strep sv swab sent to lab. 16:41 EKG done, by ED staff, reviewed by Mickey Maurer MD. sv 16:48 Second set of blood cultures drawn by ED staff. Inserted saline lock: 20 gauge in right sv antecubital area, using aseptic technique. ,using aseptic technique. done by [facility] Blood collected. 16:58 X-ray(s) taken. sv 17:07 XRAY Chest (1 view) In Process Unspecified. EDMS 18:11 Dakota Soria MD is Hospitalizing Provider. kdr 18:15 Throat Culture Sent. sv 18:53 Awaiting bed assignment. sv 19:08 Report given to Sigifredo GUEVARA. sv 19:12 Primary Nurse role handed off by Shonda Tatum, ISMAEL sv 19:17 Lonnie Ortiz, RN is Primary Nurse. jb4 21:03 No provider procedures requiring assistance completed. Patient admitted, IV remains in jb4 place. Administered Medications: 17:30 Drug: Decadron - Dexamethasone 10 mg Route: IVP; Site: right antecubital; sv 17:36 Follow up: Response: No adverse reaction sv 17:34 Drug: Rocephin - (cefTRIAXone) 1 grams Route: IVPB; Infused Over: 30 mins; Site: right sv antecubital; 17:36 Follow up: Response: No adverse reaction; IV Status: Completed infusion; IV Intake: sv 10ml ; to be given IVP per pharmacy Intake: 17:36 IV: 10ml; Total: 10ml. sv Outcome: 18:11 Decision to Hospitalize by Provider. kdr 21:03 Admitted to ICU accompanied by nurse, via wheelchair, room 2, with oxygen, with chart, jb4 Report called to ISMAEL Madsen 21:03 Condition: stable 21:03 Discharge instructions given to patient, Instructed on the need for admit, Demonstrated understanding of instructions. 21:04 Patient left the ED. jb4 Signatures: Dispatcher [employer] Shonda Hewitt RN RN sv Mickey Maurer MD MD kdr Bryson, James, RN RN jb4 Jeannie Cote RN RN ll1 Corrections: (The following items were deleted from the chart) 18:58 18:53 Pulse 107bpm; Resp 22bpm; Pulse Ox 96% 2 lpm Nasal Cannula; sv sv
[2020-08-27] MEDS ORDERED: ONDANSETRON 4 MG/2 ML VIAL IV PRN (18:33)
[2020-08-27] MEDS ORDERED: IPRATROPIUM BROM 0.5MG/2.5ML NEB PRN (18:33)
[2020-08-27] MEDS ORDERED: ALBUTEROL 2.5 MG/3 ML NEB SOL NEB PRN (19:00)
[2020-08-27 20:29] LABS: Urine Blood 3+ (NEG); Urine Glucose NEGATIVE (NEG); Urine Protein 2+ (NEG)
[2020-08-27 20:39] LABS: Urine Bacteria 20-50 /HPF (<20); Urine Culture Reflex Order REFLEXED; Urine RBC 20-50 /HPF (NONE SEEN)
[2020-08-27] MEDS ORDERED: METHYLPRED NA SUC 80 MG in NA CHLORIDE 0.9% 100 ML IV SCH (22:15)
[2020-08-27 22:17] VITALS: BMI 57.7
[2020-08-27] MEDS: RIVAROXABAN 10 MG TABLET PO SCH (22:51)
[2020-08-27] MEDS: METHYLPREDNISOLONE 125 MG INJ IV SCH (22:52)
[2020-08-27] MEDS: ACETAMINOPHEN 500 MG TAB PO PRN (23:11)
[2020-08-28 04:52] LABS: Absolute Lymphocytes (CBC) 0.8 K/uL (0.7-4.9); Basophils % 0.2 % (0-1.3); Hematocrit 42.8 % (36.0-45.0); Lymphocytes % 17.1 % (15.3-44.8); MPV 9.6 fL (7.6-11.3); RBC Red Blood Cell Count 4.86 M/uL (3.86-4.86)
[2020-08-28 05:08] LABS: BUN Blood Urea Nitrogen 7 mg/dL (7-18); Bicarbonate 28 mmol/L (21-32); Glucose Level 170 mg/dL (74-106); Potassium 4.2 mmol/L (3.5-5.1); Sodium Level 139 mmol/L (136-145)
[2020-08-28 05:13] LABS: NT PRO-BNP < 5 pg/mL (<125)
[2020-08-28] MEDS: RIVAROXABAN 10 MG TABLET PO SCH (07:54)
[2020-08-28] MEDS: METHYLPREDNISOLONE 125 MG INJ IV SCH ×2 (07:55→20:01)
--- NOTE | 2020-08-28 09:18 | P.CNS ---
Date of Consult: 08/28/20 Reason for Consult: Pneumonia due to gerard virus Chief Complaint: Shortness of breath History of Present Illness: Patient is 35 years of age tests is positive this week for gerard virus developed progressive shortness of breath and appeared in the hospital she has dyspnea on minimal exertion no other cardiopulmonary problems no GI symptoms currently on 2 L of nasal cannula oxygen saturation satisfactory Allergies No Known Allergies Allergy (Verified 08/27/20 22:21) Home Medications: NK [No Home Meds] 08/27/20 - Past Medical/Surgical History Diabetic: No -: delivery - Family History Mother Medical History: Hypertension - Social History Smoking Status: Unknown if ever smoked Alcohol use: No CD- Drugs: No Caffeine use: Yes Place of Residence: Home Review of Systems 10-point ROS is otherwise unremarkable General: Weakness Respiratory: Shortness of Breath Physical Examination Temp Pulse Resp BP Pulse Ox 97.5 F 83 22 H 128/96 H 91 08/28/20 08:00 08/28/20 08:00 08/28/20 08:00 08/28/20 08:00 08/28/20 08:00 General: Alert, Oriented x3, Mild distress Respiratory: Clear to auscultation bilaterally Cardiovascular: No edema, Normal S1 S2 Laboratory Data (last 24 hrs) 08/27/20 16:48: APTT 24.1 L 08/27/20 16:48: Lipase 162 08/27/20 16:48: PT 13.6 H, INR 1.16 08/27/20 16:48: WBC 6.1, Hgb 13.6, Hct 41.3, Plt Count 252 D 08/27/20 16:48: Sodium 140, Potassium 3.2 L, BUN 6 L, Creatinine 0.95, Glucose 102, Magnesium 2.2, Total Bilirubin 0.3, AST 31, ALT 51, Alkaline Phosphatase 40 L - Problems (1) Pneumonia due to human coronavirus Current Visit: Yes Status: Acute Plan: Patient is 35 years of age admitted with shortness of breath recently tested positive she is doing well of dyspnea on mild exertion saturation satisfactory at 2 L will plan to recheck on room air set her up with home oxygen chemistries reviewed CRP is only 57 CBCs unremarkable
[2020-08-28] MEDS: THIAMINE HCL 100 MG TABLET PO SCH (09:43)
[2020-08-28] MEDS: ACETAMINOPHEN 500 MG TAB PO PRN ×2 (10:24→20:00)
--- NOTE | 2020-08-28 13:49 | P.HP ---
Certification for Inpatient Patient admitted to: Inpatient With expected LOS: >2 Midnights Practitioner: I am a practitioner with admitting privileges, knowledge of patient current condition, hospital course, and medical plan of care. Services: Services provided to patient in accordance with Admission requirements found in Title 42 Section 412.3 of the Code of Federal Regulations Patient History Date of Service: 08/28/20 Reason for admission: Shortness of breath History of Present Illness: COOPER CAME WITH DYSPNEA NOT IMPROVED ON OUTPATIENT TREATMENT. I HAVE NOT SEEN HER AT OFFICE FOR MORE THAN 2 YEARS. AFTER HER LAST VISIT TO ER ON WE CALLED FROM OFFICE LUNGS SHOWED INFILTERATE BUT SHE NEVER REPLIED. HOSPITAL LAB NEVER CALLED US OR ANY OTHER DOCTOR ABOUT COVID RESULT. I CALLED OUTSIDE LAB TODAY AND THEY TOLD ME THAT IT WAS POSITIVE ON August. I CALLED ICU NURSES. YESTERDAY I STARTED HER ON STEROIDS AND ANTICOAGULATION WITH THE SUSPICION OF COVID POSITIVITY. I CALLED HER FOUR TIMES TODAY WITH HOPE OF TELEVISIT OR TELEPHONE VISIT BUT NO REPLY. Allergies No Known Allergies Allergy (Verified 08/27/20 22:21) Home Medications: NK [No Home Meds] 08/27/20 - Past Medical/Surgical History Has patient received pneumonia vaccine in the past: No Diabetic: No -: delivery - Family History Mother -: Hypertension - Social History Smoking Status: Never smoker Alcohol use: No CD- Drugs: No Caffeine use: Yes Place of Residence: Home Physical Examination - Vital Signs Temperature: 97.5 F Blood Pressure: 135/90 Pulse: 101 Respirations: 23 Pulse Ox (%): 91 - Studies Laboratory Data (last 24 hrs) 08/27/20 16:48: APTT 24.1 L 08/27/20 16:48: Lipase 162 08/27/20 16:48: PT 13.6 H, INR 1.16 08/27/20 16:48: WBC 6.1, Hgb 13.6, Hct 41.3, Plt Count 252 D 08/27/20 16:48: Sodium 140, Potassium 3.2 L, BUN 6 L, Creatinine 0.95, Glucose 102, Magnesium 2.2, Total Bilirubin 0.3, AST 31, ALT 51, Alkaline Phosphatase 40 L Microbiology Data (last 24 hrs): 08/27/20 16:42 Nasopharnyx Influenza Type A Antigen Screen - Final 08/27/20 16:42 Nasopharnyx Influenza Type B Antigen Screen - Final 08/27/20 16:42 Throat Group A Streptococcus Rapid Screen - Final Assessment and Plan - Problems (Diagnosis) (1) Pneumonia due to human coronavirus Current Visit: Yes Status: Acute Plan: HYPOXIA TREAT WITH HF OXYGEN. STEROIDS IV. XARELTO TO PRVENT DVT. HOME WITH OXYGEN WHEN POSSIBLE. PROGNOSIS GUARDED. - Advance Directives Does patient have a Living Will: No Does patient have a Durable POA for Healthcare: No
[2020-08-28] MEDS: METOPROLOL XL 50 MG TAB PO SCH (15:35)
[2020-08-28] MEDS: ATORVASTATIN 40 MG TAB PO SCH (20:00)
[2020-08-28] MEDS: MELATONIN 3 MG TABLET PO SCH (20:01)
[2020-08-29] MEDS: METOPROLOL XL 50 MG TAB PO SCH (06:42)
[2020-08-29] MEDS: METHYLPREDNISOLONE 125 MG INJ IV SCH ×2 (07:44→19:46)
[2020-08-29] MEDS: THIAMINE HCL 100 MG TABLET PO SCH (07:44)
[2020-08-29] MEDS: VITAMIN D 1000 UNIT TAB PO SCH (07:45)
[2020-08-29] MEDS: RIVAROXABAN 10 MG TABLET PO SCH (07:45)
[2020-08-29] MEDS ORDERED: GUAIFENESIN/DM 5 ML UCUP PO PRN (08:39)
--- NOTE | 2020-08-29 12:11 | P.PN ---
Subjective Date of Service: 08/29/20 Chief Complaint: Shortness of breath Subjective: Improving COOPER IS STILL VERY WEAK AND HAS DYSPNEA ON TALKING. SHE HAS NO CHEST PAIN. Review of Systems 10-point ROS is otherwise unremarkable General: Weakness Respiratory: Shortness of Breath Physical Examination - Vital Signs Temperature: 96.7 F Blood Pressure: 112/81 Pulse: 79 Respirations: 23 Pulse Ox (%): 89 - Physical Exam General: Oriented x3, Moderate distress, Obese Respiratory: Other (ACESSORY MUSCLES AT WORK.) - Studies Microbiology Data (last 24 hrs): 08/27/20 16:42 Throat Culture & Sensitivity - Final NORMAL UPPER RESPIRATORY SANDY GROWN. Assessment And Plan - Current Problems (Diagnosis) (1) Pneumonia due to human coronavirus Current Visit: Yes Status: Acute Plan: HYPOXIA TREAT WITH HF OXYGEN. STEROIDS IV. XARELTO TO PRVENT DVT. HOME WITH OXYGEN WHEN POSSIBLE. PROGNOSIS GUARDED. OXYGEN NEED IS DOWN TO 4 LT. MAY BE ABLE TO GO HOME IN AM.
[2020-08-29] MEDS: ATORVASTATIN 40 MG TAB PO SCH (19:46)
[2020-08-29] MEDS: MELATONIN 3 MG TABLET PO SCH (19:46)
--- NOTE | 2020-08-29 19:53 | P.PN ---
Subjective Date of Service: 08/29/20 Chief Complaint: Harrison virus pneumonia Subjective: Improving (Patient is improving steadily still his shortness of breath on mild exertion) Patient is still experiencing desaturation on mild exertion however stable on 4 L of nasal cannula oxygen no other complaints feeling better Review of Systems General: Weakness Respiratory: Shortness of Breath Physical Examination - Vital Signs Temperature: 97.7 F Blood Pressure: 130/87 Pulse: 80 Respirations: 25 Pulse Ox (%): 92 - Studies Microbiology Data (last 24 hrs): 08/27/20 16:42 Throat Culture & Sensitivity - Final NORMAL UPPER RESPIRATORY SANDY GROWN. Assessment & Plan - Problems (Diagnosis) (1) Pneumonia due to human coronavirus Current Visit: Yes Status: Acute Plan: Patient is doing better plan for discharge tomorrow on 4 L of nasal cannula oxygen prednisone 20 mg twice a day for a week then taper down to 10 twice a day oxygen has been setup vital signs stable 1 dose of spironolactone Discharge Plan: Home Plan to discharge in: 24 Hours - Code Status/Comfort Care Code Status Assessed: Yes
[2020-08-29] MEDS: ACETAMINOPHEN 500 MG TAB PO PRN (20:29)
[2020-08-29] MEDS: SPIRONOLACTONE 25 MG TABLET PO SCH (21:48)
[2020-08-30] MEDS: METOPROLOL XL 50 MG TAB PO SCH (05:04)
[2020-08-30 08:15] VITALS: O2SAT 90
[2020-08-30] MEDS: SPIRONOLACTONE 25 MG TABLET PO SCH (08:26)
[2020-08-30] MEDS: RIVAROXABAN 10 MG TABLET PO SCH (08:26)
[2020-08-30] MEDS: VITAMIN D 1000 UNIT TAB PO SCH (08:26)
[2020-08-30] MEDS: METHYLPREDNISOLONE 125 MG INJ IV SCH (08:27)
[2020-08-30] MEDS: THIAMINE HCL 100 MG TABLET PO SCH (08:27)
[2020-08-30 10:53] VITALS: BP 99/70; TEMP 97.1
--- NOTE | 2020-08-30 20:56 | P.DS ---
Admission Date: 08/27/20 Discharge Date: 08/30/20 Disposition: ROUTINE DISCHARGE Discharge Condition: FAIR Reason for Admission: Harrison virus pneumonia - Problems (1) Pneumonia due to human coronavirus Status: Acute Brief History of Present Illness: COOPER CAME WITH DYSPNEA NOT IMPROVED ON OUTPATIENT TREATMENT. I HAVE NOT SEEN HER AT OFFICE FOR MORE THAN 2 YEARS. AFTER HER LAST VISIT TO ER ON WE CALLED FROM OFFICE LUNGS SHOWED INFILTERATE BUT SHE NEVER REPLIED. HOSPITAL LAB NEVER CALLED US OR ANY OTHER DOCTOR ABOUT COVID RESULT. I CALLED OUTSIDE LAB TODAY AND THEY TOLD ME THAT IT WAS POSITIVE ON August. I CALLED ICU NURSES. YESTERDAY I STARTED HER ON STEROIDS AND ANTICOAGULATION WITH THE SUSPICION OF COVID POSITIVITY. I CALLED HER FOUR TIMES TODAY WITH HOPE OF TELEVISIT OR TELEPHONE VISIT BUT NO REPLY. Hospital Course: COOPER HAS COVID PNEUMONIA, IT TOOK A FEW DAYS OF STEROIDS AND SUPPORTIVE CARE TO IMPORVE THE OXYGENATION. SHE IS NOW ON 2 LT NC AND IS ABLE TO BE DISCHARGED HOME WITH ORAL MEDS. SHE CAN'T AFFORD XARLETO SO I GAVE HER SAMPLES OF ELIQUIS FOR A MONTH. SHE IS ADIVSED TO KEEP AMBULATING AT HOME TO REDUCE RISK OF PE. Vital Signs/Physical Exam: Temp Pulse Resp BP Pulse Ox 97.1 F 72 24 H 99/70 92 08/30/20 08:00 08/30/20 09:00 08/30/20 09:00 08/30/20 09:00 08/30/20 09:00 Laboratory Data at Discharge: WBC 4.7 K/uL (4.3-10.9) D 08/28/20 03:54 Hgb 14.0 g/dL (12.0-15.0) 08/28/20 03:54 Hct 42.8 % (36.0-45.0) 08/28/20 03:54 Plt Count 263 K/uL (152-406) 08/28/20 03:54 PT 13.6 SECONDS (9.5-12.5) H 08/27/20 16:48 INR 1.16 08/27/20 16:48 APTT 24.1 SECONDS (24.3-36.9) L 08/27/20 16:48 Sodium 139 mmol/L (136-145) 08/28/20 03:54 Potassium 4.2 mmol/L (3.5-5.1) 08/28/20 03:54 BUN 7 mg/dL (7-18) 08/28/20 03:54 Creatinine 0.84 mg/dL (0.55-1.3) 08/28/20 03:54 Glucose 170 mg/dL (74-106) H 08/28/20 03:54 Magnesium 2.2 mg/dL (1.8-2.4) 08/27/20 16:48 Total Bilirubin 0.3 mg/dL (0.2-1.0) 08/27/20 16:48 AST 31 U/L (15-37) 08/27/20 16:48 ALT 51 U/L (12-78) 08/27/20 16:48 Alkaline Phosphatase 40 U/L (45-117) L 08/27/20 16:48 Lipase 162 U/L (73-393) 08/27/20 16:48 Home Medications: Metoprolol Succinate [Toprol Xl*] 50 mg PO [id number] #90 tab 08/30/20 Rivaroxaban [Xarelto] 20 mg PO DAILY #30 tab 08/30/20 Spironolactone [Aldactone*] 25 mg PO DAILY #90 tab 08/30/20 predniSONE [Deltasone] 20 mg PO BID #60 tab 08/30/20 New Medications: Spironolactone [Aldactone*] 25 mg PO DAILY #90 tab predniSONE [Deltasone] 20 mg PO BID #60 tab Metoprolol Succinate [Toprol Xl*] 50 mg PO [id number] #90 tab Rivaroxaban [Xarelto] 20 mg PO DAILY #30 tab Followup: NONE,NONE [Primary Care Provider] -
== END 2020-08-30 10:30 | disposition home or self-care (01) | DRG 177 ==
LOC: ER 16:19 → ERHOLD 18:37 → 3RD-ICU 20:13
PROVIDERS: ADMIT Internal Medicine; ATTEND Internal Medicine
DX: U07.1 COVID-19 (principal); J12.89 Other viral pneumonia; Z68.43 Body mass index [BMI] 50.0-59.9, adult; E66.9 Obesity, unspecified; R09.02 Hypoxemia; Z79.52 Long term (current) use of systemic steroids; Z79.01 Long term (current) use of anticoagulants
CPT/HCPCS: 36415; 71045; 80048; 80076; 81003; 81015; 81025; 82728; 83605; 83690; 83735; 83880; 84145; 84484; 85025; 85379; 85610; 85730; 86140; 87040; 87070; 87081; 87086; 87088; 87804; 93005; 94640; 94760; 96374; 96375; 99285; J0696; J1100; J2405; J2930; U0002

== ENCOUNTER 2020-11-12 13:54 | Emergency (ER) | payer SELFPAY ==
[2020-11-12] MEDS ORDERED: ACETAMINOPHEN 500 MG TAB ONE (14:43)
--- NOTE | 2020-11-12 15:26 | RAD REPORT ---
EXAM DESCRIPTION: US - UPPER EXTREMITY VENOUS UNILATE - 11/12/2020 3:03 pm CLINICAL HISTORY: Right arm pain and swelling COMPARISON: None. TECHNIQUE: Real-time sonographic evaluation of the right upper extremity deep venous systems was per formed. FINDINGS: Normal compressibility, flow augmentation, phasic flow and spontaneous flow are identified in the right upper extremity deep venous system. No intraluminal filling defects seen. Internal jugu lar and subclavian veins are normal as well. In the area of palpable abnormality right arm, no sonographic abnormality seen. IMPRESSION: No DVT in the right upper extremity.
--- NOTE | 2020-11-12 16:07 | EDPHYS ---
Physician Documentation [facility] Name: Larry Morton Age: 35 yrs Sex: Female : 1985 Arrival Date: 11/12/2020 Time: 13:56 Bed 18 Private MD: Dakota Soria V ED Physician Guilherme Key HPI: 11/12 14:25 This 35 yrs old Black Female presents to ER via Ambulatory with complaints of Arm cp Problem. 14:25 The patient or guardian complains of pain, that is acute, swelling, tenderness. The cp complaints affect the proximal lateral right forearm. Context: resulted from unknown cause. Onset: The symptoms/episode began/occurred this morning. Treatment prior to arrival includes: no previous treatment. Associated signs and symptoms: Pertinent negatives: fever, numbness, warmth. Severity of symptoms: in the emergency department the symptoms are unchanged, despite home interventions. 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 - Social history:: Smoking status: Patient denies any tobacco usage or history of. ROS: 14:30 MS/extremity: Positive for ecchymosis, pain, swelling, tenderness, of the proximal cp lateral right forearm, Negative for injury or acute deformity. 14:30 Constitutional: Negative for body aches, chills, fever. cp 14:30 Respiratory: Negative for cough, shortness of breath. 14:30 All other systems are negative. Exam: 14:30 Head/Face: Normocephalic, atraumatic. cp 14:30 Constitutional: The patient appears in no acute distress, alert, awake, non-toxic, well developed, well nourished, obese. 14:30 Chest/axilla: Inspection: normal. 14:30 Cardiovascular: Rate: normal, Rhythm: regular. 14:30 Respiratory: the patient does not display signs of respiratory distress, Respirations: normal, no use of accessory muscles, no retractions, labored breathing, is not present, Breath sounds: are clear throughout, no decreased breath sounds. 14:30 Musculoskeletal/extremity: Extremities: grossly normal except: noted in the proximal lateral right forearm: ecchymosis, pain, swelling, tenderness, There is no evidence of decreased ROM, deformity, erythema, Pulses: noted to be 2+ in the right radial artery. 14:30 Skin: cellulitis, is not appreciated. Vital Signs: 14:09 BP 129 / 75; Pulse 63; Resp 16 S; Temp 97.9(TE); Pulse Ox 97% on R/A; Weight 145.15 kg ca1 (R); Height 5 ft. 4 in. (162.56 cm) (R); Pain 8/10; 16:28 BP 126 / 82; Pulse 65; Resp 16 S; Pulse Ox 99% on R/A; jd3 14:09 Body Mass Index 54.93 (145.15 kg, 162.56 cm) ca1 MDM: 14:17 Patient medically screened. cp 16:05 Data reviewed: vital signs, radiologic studies, plain films, ultrasound, and as a cp result, I will discharge patient. 16:05 Differential diagnosis: contusion, DVT, hematoma, abscess. Counseling: I had a detailed cp discussion with the patient and/or guardian regarding: the historical points, exam findings, and any diagnostic results supporting the discharge/admit diagnosis, to return to the emergency department if symptoms worsen or persist or if there are any questions or concerns that arise at home. 11/12 14:21 Order name: Extremity Venous Unilateral Ltd 11/12 15:09 Order name: AY Forearm RIGHT 11/12 15:27 Order name: EDMS Administered Medications: 14:30 Drug: Tylenol 1000 mg Route: PO; jd3 15:30 Follow up: Response: No adverse reaction jd3 Disposition: 16:20 Chart complete. cp Disposition: 11/12/20 16:07 Discharged to Home. Impression: Pain in right forearm. - Condition is Stable. - Discharge Instructions: Musculoskeletal Pain. - Prescriptions for Ibuprofen 800 mg Oral Tablet - take 1 tablet by ORAL route every 8 hours As needed take with food; 30 tablet. - Medication Reconciliation Form, Thank You Letter, Antibiotic Education, Prescription Opioid Use form. - Follow up: Private Physician; When: 1 - 2 days; Reason: Worsening of condition. - Problem is new. - Symptoms have improved. Addendum: 11/15/2020 06:24 Co-signature as Attending Physician, Guilherme Key MD I agree with the assessment and t w4 plan of care. Signatures: Dispatcher [employer] EDMS Luis Carlos Galicia PA PA cp Davies, Jonathon RN RN jd3 Guilherme Key MD MD tw4 Nina Hauser RN RN ca1 Corrections: (The following items were deleted from the chart) 11/12 16:17 16:07 11/12/2020 16:07 Discharged to Home. Impression: Pain in right forearm. Condition jd3 is Stable. Forms are Medication Reconciliation Form, Thank You Letter, Antibiotic Education, Prescription Opioid Use. Follow up: Private Physician; When: 1 - 2 days; Reason: Worsening of condition. Problem is new. Symptoms have improved. cp
--- NOTE | 2020-11-12 16:07 | ER ---
Nurse's Notes [facility] Name: Larry Morton Age: 35 yrs Sex: Female : 1985 Arrival Date: 11/12/2020 Time: 13:56 Bed 18 Private MD: Dakota Soria V Diagnosis: Pain in right forearm Presentation: 11/12 14:09 Chief complaint: Patient states: I got a knot on my forearm since this morning, then I ca1 noticed it spreading and now it has a rash/bruise on top of it. Denies injury to the area. Coronavirus screen: Client denies travel out of the [place] in the last 14 days. At this time, the client does not indicate any symptoms associated with coronavirus-19. Ebola Screen: Patient negative for fever greater than or equal to 101.5 degrees Fahrenheit, and additional compatible Ebola Virus Disease symptoms Patient denies exposure to infectious person. Patient denies travel to an Ebola-affected area in the 21 days before illness onset. No symptoms or risks identified at this time. Initial Sepsis Screen: Does the patient meet any 2 criteria? No. Patient's initial sepsis screen is negative. Does the patient have a suspected source of infection? No. Patient's initial sepsis screen is negative. Risk Assessment: Do you want to hurt yourself or someone else? Patient reports no desire to harm self or others. Onset of symptoms was November 12, 2020. 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 - Social history:: Smoking status: Patient denies any tobacco usage or history of. Screenin:20 Abuse screen: Denies threats or abuse. Nutritional screening: No deficits noted. jd3 Tuberculosis screening: No symptoms or risk factors identified. Fall Risk Ambulatory Aid- None/Bed Rest/Nurse Assist (0 pts). Gait- Normal/Bed Rest/Wheelchair (0 pts) Mental Status- Oriented to own ability (0 pts). Total Delgado Fall Scale indicates No Risk (0-24 pts). Assessment: 14:30 General: Appears in no apparent distress. comfortable, Behavior is calm, cooperative, jd3 appropriate for age. Pain: Complains of pain in right forearm Quality of pain is described as aching. Neuro: Level of Consciousness is awake, alert, obeys commands, Oriented to person, place, time, situation. Cardiovascular: Denies chest pain, Capillary refill < 3 seconds Patient's skin is warm and dry. Respiratory: Airway is patent Respiratory effort is even, unlabored, Respiratory pattern is regular, symmetrical, Denies cough, shortness of breath. GI: No signs and/or symptoms were reported involving the gastrointestinal system. : No signs and/or symptoms were reported regarding the genitourinary system. EENT: No signs and/or symptoms were reported regarding the EENT system. Derm: Skin is intact, Skin is dry, Skin is normal, Skin temperature is warm Bruising that is dark purple, on right forearm. Musculoskeletal: Circulation, motion, and sensation intact. Range of motion: intact in all extremities. 15:18 Reassessment: Patient appears in no apparent distress at this time. Patient and/or jd3 family updated on plan of care and expected duration. Pain level reassessed. Patient is alert, oriented x 3, equal unlabored respirations, skin warm/dry/pink. awaiting ultrasound results. 16:15 Reassessment: Patient appears in no apparent distress at this time. Patient and/or jd3 family updated on plan of care and expected duration. Pain level reassessed. Patient is alert, oriented x 3, equal unlabored respirations, skin warm/dry/pink. Vital Signs: 14:09 BP 129 / 75; Pulse 63; Resp 16 S; Temp 97.9(TE); Pulse Ox 97% on R/A; Weight 145.15 kg ca1 (R); Height 5 ft. 4 in. (162.56 cm) (R); Pain 8/10; 16:28 BP 126 / 82; Pulse 65; Resp 16 S; Pulse Ox 99% on R/A; jd3 14:09 Body Mass Index 54.93 (145.15 kg, 162.56 cm) ca1 ED Course: 13:56 Patient arrived in ED. ag5 13:56 Dakota Soria MD is Private Physician. ag5 14:11 Triage completed. ca1 14:12 Arm band placed on right wrist. ca1 14:13 Luis Carlos Galicia PA is PHCP. cp 14:13 Guilherme Key MD is Attending Physician. cp 14:25 Alex Rodriguez, RN is Primary Nurse. jd3 15:20 Patient has correct armband on for positive identification. Bed in low position. Call jd3 light in reach. Side rails up X 1. Pulse ox on. NIBP on. 16:17 No provider procedures requiring assistance completed. Patient did not have IV access jd3 during this emergency room visit. Administered Medications: 14:30 Drug: Tylenol 1000 mg Route: PO; jd3 15:30 Follow up: Response: No adverse reaction jd3 Outcome: 16:07 Discharge ordered by . cp 16:15 Discharged to home ambulatory, with family. jd3 16:15 Condition: stable 16:15 Discharge instructions given to patient, Instructed on discharge instructions, follow up and referral plans. medication usage, Demonstrated understanding of instructions, follow-up care, medications, Prescriptions given X 1. 16:17 Patient left the ED. jd3 Signatures: Luis Carlos Galicia PA PA cp Davies, Jonathon, RN RN jd3 Nina Hauser RN RN ca1 Josiah Rodriguez ag5
--- NOTE | 2020-11-12 16:19 | RAD REPORT ---
EXAM DESCRIPTION: RAD - Forearm Right - 11/12/2020 4:10 pm CLINICAL HISTORY: Pain;Swelling COMPARISON: No comparisons FINDINGS: No fracture is identified. There is no dislocation or periosteal reaction noted. No acute or destructive bone process. No elbow or wrist joint abnormality. No air or foreign body in the soft tissues. Mild edema in the subcutaneous fat. IMPRESSION: Mild soft tissue edema with no air or foreign body. No acute right forearm bone or joint abnormality.
[2020-11-12 16:21] VITALS: BP 129/75; TEMP 97.9; O2SAT 97
== END 2020-11-12 16:17 | disposition home or self-care (01) ==
LOC: ER 13:54
DX: M79.631 Pain in right forearm (principal)
CPT/HCPCS: 93971; 99283

== ENCOUNTER 2021-02-11 07:38 | Emergency (ER) | payer SELFPAY ==
[2021-02-11] MEDS ORDERED: LIDOCAINE 1% W/EPI 1:100,000 MDV 20 ML VIAL ONE (09:10)
[2021-02-11] MEDS ORDERED: MUPIROCIN 2% OINT 22GM TUBE TOP ONE (09:24)
--- NOTE | 2021-02-11 09:52 | EDPHYS ---
Physician Documentation [facility] Name: Larry Morton Age: 35 yrs Sex: Female : 1985 Arrival Date: 02/11/2021 Time: 07:38 Bed 14 Private MD: HOLLEY Physician Luis Carlos Amos HPI: 02/11 09:42 This 35 yrs old Black Female presents to ER via Ambulatory with complaints of Post jase Surgical Drainage-Dizziness. 09:42 The patient presents with an abscess of the abdomen, The patient presents with jase cellulitis of the abdomen, the patient presents with a swollen area of the abdomen. Description: The affected area is moderate sized, confluent, draining, erythematous, fluctuant. Onset: The symptoms/episode began/occurred 3 day(s) ago. Possible cause(s): infected port site, gastric bypass. Associated signs and symptoms: The patient has no apparent associated signs or symptoms. Modifying factors: the symptoms are alleviated by remaining still, the symptoms are aggravated by movement, pressure, squeezing the lesion and expressing the contents, touching. Severity of symptoms: At their worst the symptoms were moderate, in the emergency department the symptoms are unchanged. Historical: - Allergies: 07:46 No Known Allergies; ss - Home Meds: 07:46 None [Active]; ss - PMHx: 07:46 None; ss - PSHx: 07:46 Gastric Bypass; ss - Immunization history:: Adult Immunizations up to date. - Social history:: Smoking status: Patient denies any tobacco usage or history of. - Family history:: not pertinent. ROS: 09:42 Constitutional: Negative for fever, chills, and weight loss, Eyes: Negative for injury, jase pain, redness, and discharge, ENT: Negative for injury, pain, and discharge, Neck: Negative for injury, pain, and swelling, Cardiovascular: Negative for chest pain, palpitations, and edema, Respiratory: Negative for shortness of breath, cough, wheezing, and pleuritic chest pain, Back: Negative for injury and pain, : Negative for injury, bleeding, discharge, and swelling, MS/Extremity: Negative for injury and deformity, Neuro: Negative for headache, weakness, numbness, tingling, and seizure, Psych: Negative for depression, anxiety, suicide ideation, homicidal ideation, and hallucinations, Allergy/Immunology: Negative for hives, rash, and allergies, Endocrine: Negative for neck swelling, polydipsia, polyuria, polyphagia, and marked weight changes, Hematologic/Lymphatic: Negative for swollen nodes, abnormal bleeding, and unusual bruising. 09:42 Abdomen/GI: Positive for abdominal pain, due to infected port site. Exam: 09:42 Constitutional: This is a well developed, well nourished patient who is awake, alert, jase and in no acute distress. Head/Face: Normocephalic, atraumatic. Eyes: Pupils equal round and reactive to light, extra-ocular motions intact. Lids and lashes normal. Conjunctiva and sclera are non-icteric and not injected. Cornea within normal limits. Periorbital areas with no swelling, redness, or edema. ENT: Nares patent. No nasal discharge, no septal abnormalities noted. Tympanic membranes are normal and external auditory canals are clear. Oropharynx with no redness, swelling, or masses, exudates, or evidence of obstruction, uvula midline. Mucous membranes moist. Neck: Trachea midline, no thyromegaly or masses palpated, and no cervical lymphadenopathy. Supple, full range of motion without nuchal rigidity, or vertebral point tenderness. No Meningismus. Chest/axilla: Normal chest wall appearance and motion. Nontender with no deformity. No lesions are appreciated. Cardiovascular: Regular rate and rhythm with a normal S1 and S2. No gallops, murmurs, or rubs. Normal PMI, no JVD. No pulse deficits. Respiratory: Lungs have equal breath sounds bilaterally, clear to auscultation and percussion. No rales, rhonchi or wheezes noted. No increased work of breathing, no retractions or nasal flaring. Abdomen/GI: Soft, non-tender, with normal bowel sounds. No distension or tympany. No guarding or rebound. No evidence of tenderness throughout. Back: No spinal tenderness. No costovertebral tenderness. Full range of motion. Skin: Warm, dry with normal turgor. Normal color with no rashes, no lesions, and no evidence of cellulitis. MS/ Extremity: Pulses equal, no cyanosis. Neurovascular intact. Full, normal range of motion. Neuro: Awake and alert, GCS 15, oriented to person, place, time, and situation. Cranial nerves II-XII grossly intact. Motor strength 5/5 in all extremities. Sensory grossly intact. Cerebellar exam normal. Normal gait. Psych: Awake, alert, with orientation to person, place and time. Behavior, mood, and affect are within normal limits. 09:42 Skin: Appearance: Color: normal in color, Temperature: normal temperature, cellulitis, that is mild, induration, that is moderate is noted, located on the right upper quadrant. Vital Signs: 07:43 BP 133 / 89; Pulse 104; Resp 17; Temp 98.4(O); Pulse Ox 99% on R/A; Height 5 ft. 4 in. ss (162.56 cm); Pain 0/10; 10:00 BP 135 / 81; Pulse 95; Resp 17; Temp 98.5; Pulse Ox 100% ; bp Procedures: 09:42 I \T\ D: Prepped with Betadine, Anesthetized with 5 ml's 1% Lidocaine w/ Epi. Incised jase with #11 blade. Drained moderate amount Packed with iodoform gauze, Dressing: non-Adherent dressing, the patient tolerated the procedure well. MDM: 07:59 Patient medically screened. [facility] 02/11 09:03 Order name: Wound Culture 02/11 09:03 Order name: Incision \T\ Drainage Setup; Complete Time: 09:03 02/11 09:41 Order name: Dressing - Wound; Complete Time: 09:42 [facility] 02/11 09:41 Order name: Gloves, Sterile; Complete Time: 09:42 [facility] 02/11 09:41 Order name: Setup Suture Tray; Complete Time: 09:42 [facility] Administered Medications: 09:42 Drug: Lidocaine-Epinephrine -1%: (1:100,000) 5 ml Volume: 20 ml; Route: Infiltration; bp 09:42 Drug: Bactroban (mupirocin) Ointment 2 % 1 application Route: Topical; Site: affected bp area; 09:49 Drug: Bactrim - Trimethoprim-Sulfamethoxazole (40mg - 200mg / 5mL) 4 tsp Route: PO; bp 09:50 Follow up: Response: No adverse reaction bp Disposition: 02/11/21 09:51 Discharged to Home. Impression: Cutaneous abscess of abdominal wall - infected port site. - Condition is Stable. - Discharge Instructions: Skin Abscess, Incision and Drainage, Skin Abscess, [id number], Incision and Drainage, Care After. - Prescriptions for Bactroban 2 % Topical Ointment - Apply to affected area 1 application by TOPICAL route every 12 hours; 30 gram. sulfamethoxazole- trimethoprim 200-40 mg/5 mL Oral Suspension - take 20 milliliter by ORAL route every 12 hours for 7 days; 280 milliliter. Bactrim DS 800- 160 mg Oral Tablet - take 1 tablet by ORAL route every 12 hours for 10 days; 20 tablet. - Medication Reconciliation Form, Thank You Letter, Antibiotic Education, Prescription Opioid Use, Work release form form. - Follow up: Roland Carrillo MD; When: 2 - 3 days; Reason: Recheck today's complaints, Re-evaluation by your physician. - Problem is new. - Symptoms have improved. Signatures: Dispatcher [employer] EDMS Luis Carlos Amos MD MD cha Smirch, Shelby, ISMAEL RN Rey Kwon RN RN bp Corrections: (The following items were deleted from the chart) 10:20 09:51 02/11/2021 09:51 Discharged to Home. Impression: Cutaneous abscess of abdominal bp wall - infected port site. Condition is Stable. Forms are Medication Reconciliation Form, Thank You Letter, Antibiotic Education, Prescription Opioid Use. Follow up: Roland Carrillo; When: 2 - 3 days; Reason: Recheck today's complaints, Re-evaluation by your physician. Problem is new. Symptoms have improved. jase
--- NOTE | 2021-02-11 09:52 | ER ---
Nurse's Notes [facility] Name: Larry Morton Age: 35 yrs Sex: Female : 1985 Arrival Date: 02/11/2021 Time: 07:38 Bed 14 Private MD: Diagnosis: Cutaneous abscess of abdominal wall-infected port site Presentation: 02/11 07:43 Chief complaint: Patient states: "I had gastric bypass on 01/27, but my incision opened ss up last night and my follow up isn't until next week." Pt reports incision is approximately 1-2 cm on abdomen. Coronavirus screen: Client denies travel out of the [place] in the last 14 days. Ebola Screen: Patient denies exposure to infectious person. Patient denies travel to an Ebola-affected area in the 21 days before illness onset. Initial Sepsis Screen: Does the patient meet any 2 criteria? HR > 90 bpm. Does the patient have a suspected source of infection? No. Patient's initial sepsis screen is negative. Risk Assessment: Do you want to hurt yourself or someone else? Patient reports no desire to harm self or others. Onset of symptoms was February 11, 2021. 07:43 Method Of Arrival: Ambulatory ss 07:43 Acuity: CELESTINO 3 ss Triage Assessment: 08:00 General: Appears in no apparent distress. uncomfortable, obese, Behavior is bp cooperative, appropriate for age, anxious. Pain: Complains of pain in abdomen. EENT: No deficits noted. Neuro: No deficits noted. Cardiovascular: No deficits noted. Respiratory: No deficits noted. GI: No signs and/or symptoms were reported involving the gastrointestinal system. : No signs and/or symptoms were reported regarding the genitourinary system. Derm: Wound noted abdomen Wound is POST-SURGICAL, REDDENED, DEHISCENCE. Musculoskeletal: No deficits noted. Historical: - Allergies: 07:46 No Known Allergies; ss - Home Meds: 07:46 None [Active]; ss - PMHx: 07:46 None; ss - PSHx: 07:46 Gastric Bypass; ss - Immunization history:: Adult Immunizations up to date. - Social history:: Smoking status: Patient denies any tobacco usage or history of. - Family history:: not pertinent. Screenin:00 Abuse screen: Denies threats or abuse. Denies injuries from another. Nutritional bp screening: No deficits noted. Tuberculosis screening: No symptoms or risk factors identified. Fall Risk None identified. Assessment: 08:00 General: SEE TRIAGE NOTE. bp 09:13 Reassessment: No changes from previously documented assessment. Patient and/or family bp updated on plan of care and expected duration. Pain level reassessed. Patient is alert, oriented x 3, equal unlabored respirations, skin warm/dry/pink. MD AT B/S FOR I\\T\\D. PT TOLERATED WELL. 10:18 Reassessment: PT D/C HOME AMBULATORY, DX WITH CUTANEOUS ABSCESS. bp Vital Signs: 07:43 BP 133 / 89; Pulse 104; Resp 17; Temp 98.4(O); Pulse Ox 99% on R/A; Height 5 ft. 4 in. ss (162.56 cm); Pain 0/10; 10:00 BP 135 / 81; Pulse 95; Resp 17; Temp 98.5; Pulse Ox 100% ; bp ED Course: 07:38 Patient arrived in ED. ds1 07:46 Triage completed. ss 07:46 Arm band placed on right wrist. ss 07:57 Rey Baker, ISMAEL is Primary Nurse. bp 07:59 Luis Carlos Amos MD is Attending Physician. jase 08:00 Patient has correct armband on for positive identification. Bed in low position. Call bp light in reach. Side rails up X2. 09:00 Assist provider with I \\T\\ D: of an abscess on ABDOMINAL SURGICAL WOUND Set up I\\T\\D tray. bp Performed by Luis Carlos Amos MD Culture sent to lab. Wound packed. iodoform gauze, Dressing with 4X4s, Patient tolerated well. 09:50 Roland Carrillo MD is Referral Physician. jase 10:18 Patient did not have IV access during this emergency room visit. bp Administered Medications: 09:42 Drug: Lidocaine-Epinephrine -1%: (1:100,000) 5 ml Volume: 20 ml; Route: Infiltration; bp 09:42 Drug: Bactroban (mupirocin) Ointment 2 % 1 application Route: Topical; Site: affected bp area; 09:49 Drug: Bactrim - Trimethoprim-Sulfamethoxazole (40mg - 200mg / 5mL) 4 tsp Route: PO; bp 09:50 Follow up: Response: No adverse reaction bp Outcome: 09:51 Discharge ordered by . jase 10:18 Discharged to home ambulatory. bp 10:18 Condition: stable 10:18 Discharge instructions given to patient, Instructed on discharge instructions, follow up and referral plans. medication usage, wound care, Demonstrated understanding of instructions, follow-up care, medications, wound care, Prescriptions given X 3. 10:20 Patient left the ED. bp Addendum: 02/14/2021 10:53 Addendum: Culture Results: Positive wound culture. No further action required. Bacteria a a5 sensitive to prescribed antibiotic. Signatures: Luis Carlos Amos MD MD cha Sanford, Demi ds1 Lacie Olivo, RN RN aa5 Bianca Quan RN RN ss Rey Baker RN RN bp
[2021-02-11] MEDS ORDERED: SULFAMETH/TRIMETHOPRIM 240 MG/30 ML UDBOT ONE (10:04)
[2021-02-11 10:27] VITALS: BP 135/81; TEMP 98.5; O2SAT 100
== END 2021-02-11 10:20 | disposition home or self-care (01) ==
LOC: ER 07:38
PROC: 0H97XZZ Drainage of Abdomen Skin, External Approach (ICD-10-PCS; principal; 2021-02-11)
DX: L02.211 Cutaneous abscess of abdominal wall (principal); Z98.84 Bariatric surgery status
CPT/HCPCS: 87070; 87077; 87186; 87205; 99284

== ENCOUNTER 2021-02-21 17:02 | Emergency (ER) | payer SELFPAY ==
[2021-02-21] MEDS ORDERED: NA CHLORIDE 0.9% 1,000 ML ONE ×2 (20:02→22:11)
[2021-02-21] MEDS ORDERED: ONDANSETRON 4 MG/2 ML VIAL ONE (20:02)
[2021-02-21 20:39] LABS: ALT/SGPT 42 U/L (12-78); AST/SGOT 19 U/L (15-37); Albumin 3.7 g/dL (3.4-5.0); Alkaline Phosphatase 53 U/L (45-117); BUN Blood Urea Nitrogen 7 mg/dL (7-18); Bicarbonate 29 mmol/L (21-32); Bilirubin Direct 0.1 mg/dL (0-0.2); Bilirubin Total 0.4 mg/dL (0.2-1.0); Glucose Level 106 mg/dL (74-106); Potassium 3.6 mmol/L (3.5-5.1); Protein, Total 8.9 g/dL (6.4-8.2); Sodium Level 139 mmol/L (136-145)
[2021-02-21 20:40] LABS: Lipase 2768 U/L (73-393); Magnesium 2.2 mg/dL (1.8-2.4)
[2021-02-21 20:42] LABS: Absolute Lymphocytes (CBC) 1.6 K/uL (0.7-4.9)
[2021-02-21 21:02] LABS: Basophils % 0.4 % (0-1.3); Hematocrit 41.4 % (36.0-45.0); Lymphocytes % 26.6 % (15.3-44.8); MPV 11.5 fL (7.6-11.3); RBC Red Blood Cell Count 4.82 M/uL (3.86-4.86)
[2021-02-21 22:01] LABS: Urine Blood Negative (Negative); Urine Glucose Negative (Negative); Urine Protein 1+ (Negative); Urine Specific Gravity 1.025 (1.005-1.030); Urine pH 5.5 (5.0-7.0)
[2021-02-21 22:58] LABS: Blood Morphology Comment NOT SEEN (NOT SEEN); Platelet Estimate ADEQ; White Blood Cell Scan OK (OK)
--- NOTE | 2021-02-21 23:06 | ER ---
Nurse's Notes [facility] Name: Larry Morton Age: 35 yrs Sex: Female : 1985 Arrival Date: 02/21/2021 Time: 17:04 Bed 17 Private MD: Diagnosis: Nausea;Dehydration Presentation: 02/21 17:30 Chief complaint: Patient states: generalized weakness and substernal chest pain, denies em N/V, cough or fever. Coronavirus screen: Client denies travel out of the [place] in the last 14 days. Ebola Screen: Patient negative for fever greater than or equal to 101.5 degrees Fahrenheit, and additional compatible Ebola Virus Disease symptoms Patient denies exposure to infectious person. Patient denies travel to an Ebola-affected area in the 21 days before illness onset. No symptoms or risks identified at this time. Risk Assessment: Do you want to hurt yourself or someone else? Patient reports no desire to harm self or others. Onset of symptoms was February 21, 2021. 17:30 Method Of Arrival: Wheelchair em 17:30 Acuity: CELESTINO 3 em 19:38 Initial Sepsis Screen: Does the patient meet any 2 criteria? No. Patient's initial vg1 sepsis screen is negative. Does the patient have a suspected source of infection? No. Patient's initial sepsis screen is negative. 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 - Social history:: Smoking status: Patient denies any tobacco usage or history of. - Family history:: not pertinent. - Hospitalizations: : No recent hospitalization is reported. Screenin:38 Abuse screen: Denies threats or abuse. Nutritional screening: No deficits noted. vg1 Tuberculosis screening: No symptoms or risk factors identified. Fall Risk No fall in past 12 months (0 pts). No secondary diagnosis (0 pts). IV access (20 points). Ambulatory Aid- None/Bed Rest/Nurse Assist (0 pts). Gait- Normal/Bed Rest/Wheelchair (0 pts) Mental Status- Oriented to own ability (0 pts). Total Delgado Fall Scale indicates No Risk (0-24 pts). Assessment: 19:35 General: Appears in no apparent distress. comfortable, Behavior is calm, cooperative. vg1 Pain: Denies pain. Neuro: Level of Consciousness is awake, alert, obeys commands, Oriented to person, place, time, situation. Cardiovascular: Patient's skin is warm and dry. Respiratory: Airway is patent Respiratory effort is even, unlabored, Denies cough, shortness of breath. GI: Abdomen is round obese, Last BM was February 21, 2021. Pt stated stool was soft Bowel sounds present X 4 quads. Reports nausea. : No signs and/or symptoms were reported regarding the genitourinary system. EENT: No signs and/or symptoms were reported regarding the EENT system. Derm: Skin is intact, is healthy with good turgor. Musculoskeletal: Circulation, motion, and sensation intact. 21:15 Reassessment: Patient appears in no apparent distress at this time. Patient and/or bb family updated on plan of care and expected duration. Pain level reassessed. Patient is alert, oriented x 3, equal unlabored respirations, skin warm/dry/pink. Pt state 'im feeling a little better'. 22:34 Reassessment: Patient and/or family updated on plan of care and expected duration. Pain ea level reassessed. Patient is alert, oriented x 3, equal unlabored respirations, skin warm/dry/pink. returned from CT. 23:16 Reassessment: Patient and/or family updated on plan of care and expected duration. Pain ea level reassessed. Patient is alert, oriented x 3, equal unlabored respirations, skin warm/dry/pink. Discharge instruction given to patient verbalized the understanding of instruction. Pt left ED ambulatory tolerating well. Vital Signs: 17:30 BP 111 / 72; Pulse 78; Resp 18; Temp 97; Pulse Ox 99% on R/A; Weight 154.22 kg; Height em 5 ft. 4 in. (162.56 cm); Pain 8/10; 19:37 BP 118 / 79; Pulse 78; Resp 20; Pulse Ox 99% on R/A; vg1 17:30 Body Mass Index 58.36 (154.22 kg, 162.56 cm) em ED Course: 11:53 Initial lab(s) drawn, by me, sent to lab. Inserted saline lock: 20 gauge in right vg1 antecubital area, using aseptic technique. Blood collected. 17:04 Patient arrived in ED. mr 17:31 Triage completed. em 17:32 Arm band placed on. em 19:27 Aramis Limon MD is Attending Physician. rn 19:35 Cathy Andrade RN is Primary Nurse. vg1 19:38 Patient has correct armband on for positive identification. Bed in low position. Call vg1 light in reach. Side rails up X2. 21:24 Radiology exam delayed due to test not completed at this time. vm2 22:[address] via wheelchair. bb 22:23 CT Abd/Pelvis - IV Contrast Only In Process Unspecified. EDMS 23:17 No provider procedures requiring assistance completed. IV discontinued, intact, ea bleeding controlled, No redness/swelling at site. Pressure dressing applied. Administered Medications: 20:00 Drug: NS 0.9% 1000 ml Route: IV; Rate: 1000 ml; Site: right antecubital; vg1 21:15 Follow up: IV Status: Completed infusion; IV Intake: 1000ml bb 20:00 Drug: Zofran (Ondansetron) 4 mg Route: IVP; Site: right antecubital; vg1 21:15 Follow up: Response: No adverse reaction bb 21:53 Drug: NS 0.9% 1000 ml Route: IV; Rate: 1000 ml; Site: right antecubital; bb 23:18 Follow up: Response: No adverse reaction; IV Status: Completed infusion ea Intake: 21:15 IV: 1000ml; Total: 1000ml. bb Outcome: 23:05 Discharge ordered by . rn 23:17 Discharged to home ambulatory, with family. ea 23:17 Condition: stable 23:17 Discharge instructions given to patient, Instructed on discharge instructions, follow up and referral plans. medication usage, Demonstrated understanding of instructions, follow-up care, medications, Prescriptions given X 1. 23:17 Patient left the ED. ea Signatures: Dispatcher [employer] An Jacobs mr DawnChadd, RN RN Verito Rayo RN ISMAEL bb Aramis Limon MD MD rn McGuire, Victoria [facility] Yue Davis RN RN ea Garcia, Victoria, RN RN 1
--- NOTE | 2021-02-21 23:06 | EDPHYS ---
Physician Documentation [facility] Name: Larry Morton Age: 35 yrs Sex: Female : 1985 Arrival Date: 02/21/2021 Time: 17:04 Bed 17 Private MD: ED Physician Aramis Limon HPI: 02/21 19:36 This 35 yrs old Black Female presents to ER via Wheelchair with complaints of rn Dizziness, Weakness. 19:36 The patient presents with generalized weakness, lightheadedness. Onset: The rn symptoms/episode began/occurred 1 week(s) ago. Context: occurred at home, occurred while the patient was at rest. Modifying factors: The symptoms are alleviated by nothing, the symptoms are aggravated by standing up. Associated signs and symptoms: Pertinent positives: nausea, Pertinent negatives: chest pain, confusion, diaphoresis, focal weakness, seizure, shortness of breath, syncope, vomiting. Severity of symptoms: At their worst the symptoms were mild in the emergency department the symptoms are unchanged. The patient has not experienced similar symptoms in the past. The patient has been recently seen by a physician:. Reports gastric bypass 3 weeks ago, afraid to eat, has been experiencing nausea, no vomiting, no blood in stool, no abd pain, no fever. Reports taking fluids, but today felt lightheaded and dizzy when standing, improves with sitting and rest. No headache. NO chest pain/sob.. 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 - Social history:: Smoking status: Patient denies any tobacco usage or history of. - Family history:: not pertinent. - Hospitalizations: : No recent hospitalization is reported. ROS: 19:36 Constitutional: Negative for fever, chills, and weight loss, Eyes: Negative for injury, rn pain, redness, and discharge, Cardiovascular: Negative for chest pain, palpitations, and edema, Respiratory: Negative for shortness of breath, cough, wheezing, and pleuritic chest pain, Abdomen/GI: Negative for abdominal pain, vomiting, diarrhea, and constipation, Back: Negative for injury and pain, : Negative for injury, bleeding, discharge, and swelling, MS/Extremity: Negative for injury and deformity, Skin: Negative for injury, rash, and discoloration, Neuro: Negative for headache, numbness, tingling, and seizure. Exam: 19:36 Constitutional: This is a well developed, well nourished patient who is awake, alert, rn and in no acute distress. Head/Face: Normocephalic, atraumatic. Eyes: Conjunctiva and sclera are non-icteric and not injected. ENT: dry MM Cardiovascular: Regular rate and rhythm. No pulse deficits. Respiratory: No increased work of breathing, no retractions or nasal flaring. Abdomen/GI: soft, non-tender, non-distended Skin: Warm, dry MS/ Extremity: Pulses equal, no cyanosis. Neuro: Awake and alert, GCS 15 Vital Signs: 17:30 BP 111 / 72; Pulse 78; Resp 18; Temp 97; Pulse Ox 99% on R/A; Weight 154.22 kg; Height em 5 ft. 4 in. (162.56 cm); Pain 8/10; 19:37 BP 118 / 79; Pulse 78; Resp 20; Pulse Ox 99% on R/A; vg1 17:30 Body Mass Index 58.36 (154.22 kg, 162.56 cm) em MDM: 19:27 Patient medically screened. rn 21:23 ED course: Pt improving, states nausea improved, ordering ct given elevated lipase and rn unexpected finding. . 23:04 Differential diagnosis: generalized weakness, hypovolemia, idiopathic dizziness. Data rn reviewed: vital signs, nurses notes, lab test result(s), radiologic studies, CT scan, and as a result, I will discharge patient. Counseling: I had a detailed discussion with the patient and/or guardian regarding: the historical points, exam findings, and any diagnostic results supporting the discharge/admit diagnosis, lab results, radiology results, the need for outpatient follow up, to return to the emergency department if symptoms worsen or persist or if there are any questions or concerns that arise at home. Response to treatment: the patient's symptoms have markedly improved after treatment, and as a result, I will discharge patient. Special discussion: I discussed with the patient/guardian in detail that at this point there is no indication for admission to the hospital. It is understood, however, that if the symptoms persist or worsen the patient needs to return immediately for re-evaluation. Based on the history and exam findings, there is no indication for further emergent testing or inpatient evaluation. I discussed with the patient/guardian the need to see the primary care provider for further evaluation of the symptoms. ED course: Pt improved, tolerating PO, benign abd exam, lipase elevated, no vomiting, ct abdomen no acute findings, will dc home with prn kingston, instructed to f/u with her surgeon. . 02/21 19:34 Order name: Basic Metabolic Panel; Complete Time: 21:19 rn 02/21 19:34 Order name: CBC with Diff rn 02/21 19:34 Order name: Hepatic Function; Complete Time: 21:19 02/21 19:34 Order name: Lipase; Complete Time: 21:19 rn 02/21 19:34 Order name: Magnesium; Complete Time: 21:19 02/21 21:05 Order name: CBC Smear Scan EDAK 02/21 19:34 Order name: IV Saline Lock; Complete Time: 20:00 rn 02/21 19:34 Order name: Labs collected and sent; Complete Time: 20:00 rn 02/21 21:20 Order name: CT Abd/Pelvis - IV Contrast Only 02/21 22:00 Order name: Urine Dipstick-Ancillary [facility] 02/21 22:18 Order name: Urine --Ancillary (enter results) mw2 Administered Medications: 20:00 Drug: NS 0.9% 1000 ml Route: IV; Rate: 1000 ml; Site: right antecubital; vg1 21:15 Follow up: IV Status: Completed infusion; IV Intake: 1000ml bb 20:00 Drug: Zofran (Ondansetron) 4 mg Route: IVP; Site: right antecubital; vg1 21:15 Follow up: Response: No adverse reaction bb 21:53 Drug: NS 0.9% 1000 ml Route: IV; Rate: 1000 ml; Site: right antecubital; bb 23:18 Follow up: Response: No adverse reaction; IV Status: Completed infusion ea Disposition: 02/21/21 23:05 Discharged to Home. Impression: Nausea, Dehydration. - Condition is Stable. - Discharge Instructions: Dehydration, Adult, Nausea, Adult. - Prescriptions for Zofran ODT 4 mg Oral tablet,disintegrating - place 1 tablet by TRANSLINGUAL route every 8 hours As needed; 20 tablet. - Medication Reconciliation Form, Thank You Letter, Antibiotic Education, Prescription Opioid Use form. - Follow up: Private Physician; When: As needed; Reason: Recheck today's complaints, Re-evaluation by your physician. - Problem is new. - Symptoms have improved. Signatures: Dispatcher [employer] EDAK Chadd Dawn, RN RN Verito Rayo RN RN Aramis Olivo MD MD rn Antunez, Elena, RN RN ea Garcia, Victoria, RN RN vg1 Corrections: (The following items were deleted from the chart) 23:17 23:05 02/21/2021 23:05 Discharged to Home. Impression: Nausea; Dehydration. Condition ea is Stable. Forms are Medication Reconciliation Form, Thank You Letter, Antibiotic Education, Prescription Opioid Use. Follow up: Private Physician; When: As needed; Reason: Recheck today's complaints, Re-evaluation by your physician. Problem is new. Symptoms have improved. rn
[2021-02-21 23:12] LABS: Urine Specific Gravity/Preg 1.025 (1.005-1.030)
[2021-02-22 00:41] VITALS: TEMP 97; O2SAT 99
[2021-02-22 00:43] VITALS: BP 118/79
--- NOTE | 2021-02-22 10:24 | RAD REPORT ---
EXAM DESCRIPTION: CT - Abdomen Pelvis W Contrast - 02/22/2021 6:21 am CLINICAL HISTORY: Recent gastric bypass, nausea. COMPARISON: CT of the chest, abdomen, and pelvis from March 24, 2019. TECHNIQUE: CT of the abdomen and pelvis was performed following intravenous administration of iodina marti contrast. Arterial phase images through the abdomen, and portal venous phase images through the a bdomen and pelvis were obtained. Oral contrast was not administered. Axial, coronal, and sagittal sof t tissue window reconstructions were created and sent to PACS. This exam was performed according to our departmental dose-optimization program, which includes autom ated exposure control, adjustment of the mA and/or kV according to patient size and/or use of iterati ve reconstruction technique. FINDINGS: Thoracic: No significant abnormality. Hepatobiliary: No concerning hepatic lesion identified. The hepatic and portal veins are patent. The gallbladder is unremarkable. No biliary ductal dilatation. Pancreas: Unremarkable. Spleen: Unremarkable. Gastrointestinal: Postsurgical changes of Mamadou-en-Y gastric bypass. Unremarkable appearance of the an astomoses. No fluid collections identified. No evidence of bowel obstruction or perienteric inflammat ion. The appendix is normal. Adrenals: No abnormality identified in either adrenal gland. Renal: No concerning parenchymal abnormality in either kidney. No hydronephrosis or urolithiasis. Bladder/Reproductive: Mild circumferential wall thickening of the underdistended urinary bladder. Unr emarkable CT appearance of the uterus and ovaries. Vascular/Lymphatics: No lymphadenopathy identified by CT size criteria. Abdominal aorta is normal in caliber. The major visceral vessels are patent. Musculoskeletal: No concerning osseous lesion identified. Recent postoperative changes in the anterio r abdominal wall soft tissues, with no fluid collections identified. Fluid / peritoneum: No significant free fluid. No free intraperitoneal air identified. IMPRESSION 1. Postsurgical changes of Mamadou-en-Y gastric bypass, with no evidence of complication. 2. Mild circumferential wall thickening of the urinary bladder, which may be related to underdisten tion. Correlate for cystitis. Electronically signed by: Ally Vinson MD 02/21/2021 10:43 PM CDT Due to temporary technical issues with the PACS/Fluency reporting system, reports are being signed by the in house radiologist without review as a courtesy to ensure prompt reporting. The interpreting r adiologist is fully responsible for the content of the report.
== END 2021-02-21 23:17 | disposition home or self-care (01) ==
LOC: ER 17:02
DX: E86.0 Dehydration (principal); Z95.1 Presence of aortocoronary bypass graft
CPT/HCPCS: 36415; 74177; 80048; 80076; 81003; 81025; 83690; 83735; 85025; 96361; 96374; 99284; J2405; J7030; Q9967

== ENCOUNTER 2021-02-24 23:37 | Inpatient (IN) | payer SELFPAY ==
[2021-02-25 00:24] LABS: Absolute Lymphocytes (CBC) 1.4 K/uL (0.7-4.9); Basophils % 0.3 % (0-1.3); Hematocrit 39.3 % (36.0-45.0); MPV 11.8 fL (7.6-11.3); RBC Red Blood Cell Count 4.56 M/uL (3.86-4.86)
[2021-02-25 00:34] LABS: Protime INR 1.44
[2021-02-25] MEDS ORDERED: NA CHLORIDE 0.9% 1,000 ML ONE ×2 (00:39→04:44)
[2021-02-25 00:43] LABS: ALT/SGPT 32 U/L (12-78); AST/SGOT 17 U/L (15-37); Alkaline Phosphatase 40 U/L (45-117); BUN Blood Urea Nitrogen 7 mg/dL (7-18); Bicarbonate 27 mmol/L (21-32); Bilirubin Direct 0.1 mg/dL (0-0.2); Bilirubin Total 0.5 mg/dL (0.2-1.0); Glucose Level 117 mg/dL (74-106); Potassium 3.3 mmol/L (3.5-5.1); Sodium Level 140 mmol/L (136-145)
[2021-02-25 00:44] LABS: Albumin 3.4 g/dL (3.4-5.0); Magnesium 1.9 mg/dL (1.8-2.4); NT PRO-BNP 32 pg/mL (<125); Protein, Total 7.9 g/dL (6.4-8.2); Troponin (Emerg Dept Use Only) < 0.02 ng/mL (0.0-0.045)
[2021-02-25] MEDS ORDERED: ONDANSETRON 4 MG/2 ML VIAL ONE (04:08)
[2021-02-25 04:23] LABS: Urine Blood Negative (Negative); Urine Glucose Negative (Negative); Urine Protein 1+ (Negative); Urine Specific Gravity 1.015 (1.005-1.030); Urine pH 5.5 (5.0-7.0)
[2021-02-25 04:29] LABS: Urine Specific Gravity/Preg 1.015 (1.005-1.030)
--- NOTE | 2021-02-25 04:43 | EDPHYS ---
Physician Documentation [facility] Name: Larry Morton Age: 35 yrs Sex: Female : 1985 Arrival Date: 02/24/2021 Time: 23:42 Bed 23 Private MD: ED Physician Reyes Chambers HPI: 02/25 04:02 This 35 yrs old Black Female presents to ER via EMS with complaints of Syncope. 7 04:02 The patient has experienced syncope, collapsed, lost consciousness. Onset: The mh7 symptoms/episode began/occurred last night. Duration: This was a single episode, that lasted an unknown period of time, brief. 04:03 Context: the episode(s) was witnessed, by no one, occurred at home, occurred while the mh7 patient was standing, after taking a shower. Just prior to the episode the patient experienced dizziness. Associated injury: The patient did not suffer any apparent associated injury. Associated signs and symptoms: Pertinent positives: dizziness, lightheadedness, Pertinent negatives: abdominal pain, agitation, ataxia, blurred vision, chest pain, combativeness, confusion, diaphoresis, diarrhea, headache, nausea, numbness, palpitations, seizure, shortness of breath, tingling, vertigo, vomiting, weakness. Current symptoms: Currently, the patient is not experiencing any symptoms. Historical: - Allergies: 02/24 23:45 No Known Allergies; iw - PSHx: 23:45 Gastric Bypass; iw ROS: 02/25 04:03 Constitutional: Negative for fever, chills, and weight loss, Eyes: Negative for injury, mh7 pain, redness, and discharge, ENT: Negative for injury, pain, and discharge, Neck: Negative for injury, pain, and swelling, Cardiovascular: Negative for chest pain, palpitations, and edema, Respiratory: Negative for shortness of breath, cough, wheezing, and pleuritic chest pain, Abdomen/GI: Negative for abdominal pain, nausea, vomiting, diarrhea, and constipation, Back: Negative for injury and pain, : Negative for injury, bleeding, discharge, and swelling, MS/Extremity: Negative for injury and deformity, Skin: Negative for injury, rash, and discoloration, Neuro: Negative for headache, weakness, numbness, tingling, and seizure, Psych: Negative for depression, anxiety, suicide ideation, homicidal ideation, and hallucinations, Allergy/Immunology: Negative for hives, rash, and allergies, Endocrine: Negative for neck swelling, polydipsia, polyuria, polyphagia, and marked weight changes, Hematologic/Lymphatic: Negative for swollen nodes, abnormal bleeding, and unusual bruising. Exam: 04:03 Constitutional: This is a well developed, well nourished patient who is awake, alert, mh7 and in no acute distress. Head/Face: Normocephalic, atraumatic. Eyes: Pupils equal round and reactive to light, extra-ocular motions intact. Lids and lashes normal. Conjunctiva and sclera are non-icteric and not injected. Cornea within normal limits. Periorbital areas with no swelling, redness, or edema. Neck: Trachea midline, no thyromegaly or masses palpated, and no cervical lymphadenopathy. Supple, full range of motion without nuchal rigidity, or vertebral point tenderness. No Meningismus. Chest/axilla: Normal chest wall appearance and motion. Nontender with no deformity. No lesions are appreciated. Cardiovascular: Regular rate and rhythm with a normal S1 and S2. No gallops, murmurs, or rubs. Normal PMI, no JVD. No pulse deficits. Respiratory: Lungs have equal breath sounds bilaterally, clear to auscultation and percussion. No rales, rhonchi or wheezes noted. No increased work of breathing, no retractions or nasal flaring. Abdomen/GI: Soft, non-tender, with normal bowel sounds. No distension or tympany. No guarding or rebound. No evidence of tenderness throughout. Back: No spinal tenderness. No costovertebral tenderness. Full range of motion. Skin: Warm, dry with normal turgor. Normal color with no rashes, no lesions, and no evidence of cellulitis. MS/ Extremity: Pulses equal, no cyanosis. Neurovascular intact. Full, normal range of motion. Neuro: Awake and alert, GCS 15, oriented to person, place, time, and situation. Cranial nerves II-XII grossly intact. Motor strength 5/5 in all extremities. Sensory grossly intact. Cerebellar exam normal. Normal gait. Psych: Awake, alert, with orientation to person, place and time. Behavior, mood, and affect are within normal limits. Vital Signs: 02/24 23:44 BP 124 / 54; Pulse 52; Resp 16; Temp 97.4; Pulse Ox 98% on R/A; iw 02/25 02:00 BP 107 / 72 Supine; Pulse 74; Resp 16; iw 02:05 BP 104 / 77 Sitting; Pulse 89; iw 02:10 BP 126 / 88 Standing; Pulse 102; iw 03:00 BP 104 / 45; Pulse 58; Resp 1; Pulse Ox 100% ; cr4 04:00 BP 118 / 71; Pulse 66; Resp 16; Pulse Ox 99% ; cr4 05:00 BP 91 / 51; Pulse 55; Resp 16; Pulse Ox 100% ; Pain 0/10; cr4 06:00 BP 105 / 78; Pulse 55; Resp 18; Pulse Ox 100% ; cr4 MDM: 04:40 Differential Diagnosis: cardiac arrhythmia, drug effect, emotional response, idiopathic mh syncope, , pseudo seizure, sepsis, vasovagal episode. Data reviewed: vital signs, nurses notes, EMS record, old medical records, lab test result(s), cardiac enzymes, CBC, electrolytes, urinalysis, EKG, radiologic studies, CT scan, plain films. Data interpreted: Pulse oximetry: on room air is 98 %. Interpretation: normal. Counseling: I had a detailed discussion with the patient and/or guardian regarding: the historical points, exam findings, and any diagnostic results supporting the discharge/admit diagnosis, lab results, radiology results, the need for further work-up and treatment in the hospital. Response to treatment: the patient's symptoms have mildly improved after treatment. 04:42 Patient medically screened. [facility] 02/24 23:59 Order name: Basic Metabolic Panel [facility] 02/24 23:59 Order name: CBC with Diff [facility] 02/24 23:59 Order name: LFT's; Complete Time: 00:48 [facility] 02/24 23:59 Order name: Magnesium; Complete Time: 00:48 [facility] 02/24 23:59 Order name: NT PRO-BNP; Complete Time: 00:48 [facility] 02/24 23:59 Order name: PT-INR; Complete Time: 00:48 [facility] 02/24 23:59 Order name: Troponin (emerg Dept Use Only); Complete Time: 00:48 [facility] 02/24 23:59 Order name: Basic Metabolic Panel; Complete Time: 00:48 [facility] 02/24 23:59 Order name: CBC with Automated Diff; Complete Time: 00:48 [facility] 02/25 04:23 Order name: Urine Dipstick-Ancillary; Complete Time: 04:36 MS 02/25 04:24 Order name: Urine --Ancillary (enter results); Complete Time: 04:36 3 02/25 04:52 Order name: Comprehensive Metabolic Panel [facility] 02/25 04:52 Order name: CBC with Automated Diff [facility] 02/25 04:52 Order name: CBC with Automated Diff [facility] 02/24 23:59 Order name: XRAY Chest (1 view) [facility] 02/24 23:59 Order name: EKG; Complete Time: 00:00 [facility] 02/25 00:19 Order name: CT Head Brain wo Cont [facility] 02/25 02:40 Order name: CT Chest For PE Angio [facility] 02/25 02:40 Order name: CT Abd/Pelvis - IV Contrast Only [facility] 02/25 04:52 Order name: Comprehensive Metabolic Panel [facility] 02/25 04:52 Order name: Troponin I [facility] 02/25 04:52 Order name: Troponin I; Complete Time: 06:54 [facility] 02/25 04:52 Order name: Troponin I [facility] 02/25 05:04 Order name: COVID-19 : Document "Date of Symptom Onset" if Symptomatic. 3 02/25 06:20 Order name: CORONAVIRUS [facility] 02/25 07:16 Order name: SARS-COV-2 RT PCR [facility] 02/24 23:59 Order name: Cardiac monitoring; Complete Time: 00:01 [facility] 02/24 23:59 Order name: EKG - Nurse/Tech; Complete Time: 00:01 [facility] 02/24 23:59 Order name: IV Saline Lock; Complete Time: 00:00 [facility] 02/24 23:59 Order name: Labs collected and sent; Complete Time: 00:00 [facility] 02/24 23:59 Order name: O2 Per Protocol; Complete Time: 00:00 [facility] 02/24 23:59 Order name: O2 Sat Monitoring; Complete Time: 00:01 [facility] 02/24 23:59 Order name: Urine Dipstick-Ancillary (obtain specimen); Complete Time: 04:37 [facility] 02/24 23:59 Order name: Urine Test (obtain specimen); Complete Time: 04:37 [facility] 02/25 00:23 Order name: Orthostatics; Complete Time: 02:29 [facility] 02/25 04:52 Order name: Heart Healthy EDMS Administered Medications: Discontinued: NS 0.9% 1000 ml IV at 1000 ml once 00:23 Drug: NS 0.9% 1000 ml Route: IV; Rate: 1000 ml; Site: right antecubital; kg 03:53 Drug: Zofran (Ondansetron) 4 mg Route: IVP; Site: right antecubital; cr4 04:27 Drug: NS 0.9% 1000 ml Route: IV; Rate: 1000 ml; Site: right antecubital; cr4 04:49 Drug: D5-1/2 NS 1000 ml Route: IV; Rate: per protocol; Site: right antecubital; cr4 Disposition: 02/25/21 04:42 Hospitalization ordered by Dakota Soria for Inpatient Admission. Preliminary diagnosis are Syncope and collapse, Dehydration. - Bed requested for Telemetry/MedSurg (Inpatient). - Status is Inpatient Admission. ss - Condition is Stable. - Problem is new. - Symptoms have improved. Signatures: Dispatcher [employer] EDUT Lavern Stapleton RN IMSAEL Xiomy Parker RN RN cr4 Bianca Quan RN RN Nedra Bridges RN RN tl1 Svetlana Schneider Maurice, MD MD 7 Estephanie Vargas kg Corrections: (The following items were deleted from the chart) 00:02 00:00 Chest Single View+RAD.[email or web address].[email or web address] ordered. [facility] EDUT 05:50 04:42 Hospitalization Ordered by Dakota Soria MD for Inpatient Admission. Preliminary tl1 diagnosis is Syncope and collapse; Dehydration. Bed requested for Telemetry/MedSurg (Inpatient). Status is Inpatient Admission. Condition is Stable. Problem is new. Symptoms have improved. [facility] 08:37 05:50 02/25/2021 04:42 Hospitalization Ordered by Dakota Soria MD for Inpatient eb Admission. Preliminary diagnosis is Syncope and collapse; Dehydration. Bed requested for [facility] ER HOLD. Status is Inpatient Admission. Condition is Stable. Problem is new. Symptoms have improved. tl1 10:16 08:37 02/25/2021 04:42 Hospitalization Ordered by Dakota Soria MD for Inpatient ss Admission. Preliminary diagnosis is Syncope and collapse; Dehydration. Bed requested for Telemetry/MedSurg (Inpatient). Status is Inpatient Admission. Condition is Stable. Problem is new. Symptoms have improved. eb
--- NOTE | 2021-02-25 04:43 | ER ---
Nurse's Notes [facility] Name: Larry Morton Age: 35 yrs Sex: Female : 1985 Arrival Date: 02/24/2021 Time: 23:42 Bed 23 Private MD: Diagnosis: Syncope and collapse;Dehydration Presentation: 02/24 23:42 Chief complaint: EMS states: pt had recent gastric bypass on 01-27-21, was taking shower, iw felt dizzy, got out, had syncopal episode in bedroom, no injury noted, pt still feels dizzy, BS=98 per EMS, pt has not been eating much since the surgery , no vomiting. Coronavirus screen: At this time, the client does not indicate any symptoms associated with coronavirus-19. Ebola Screen: Patient negative for fever greater than or equal to 101.5 degrees Fahrenheit, and additional compatible Ebola Virus Disease symptoms Patient denies exposure to infectious person. Patient denies travel to an Ebola-affected area in the 21 days before illness onset. No symptoms or risks identified at this time. Initial Sepsis Screen: Does the patient meet any 2 criteria? No. Patient's initial sepsis screen is negative. Does the patient have a suspected source of infection? No. Patient's initial sepsis screen is negative. Risk Assessment: Do you want to hurt yourself or someone else? Patient reports no desire to harm self or others. Onset of symptoms was February 24, 2021. 23:42 Method Of Arrival: EMS: [facility] iw 23:42 Acuity: CELESTINO 3 iw Historical: - Allergies: 23:45 No Known Allergies; iw - PSHx: 23:45 Gastric Bypass; iw Screenin:48 Abuse screen: Denies threats or abuse. Nutritional screening: On , pt had gastric kg bypass 01/28. Tuberculosis screening: No symptoms or risk factors identified. Fall Risk Fall in past 12 months (25 points). No secondary diagnosis (0 pts). IV access (20 points). Ambulatory Aid- None/Bed Rest/Nurse Assist (0 pts). Gait- Weak (10 pts.). Mental Status- Oriented to own ability (0 pts). Total Delgado Fall Scale indicates Low Risk Score (25-44 pts). Assessment: 23:47 General: Appears in no apparent distress. Behavior is calm, cooperative, appropriate kg for age, quiet. Neuro: Level of Consciousness is awake, alert, obeys commands, lethargic, Oriented to person, place, time, situation, Appropriate for age Batter Scaler are. 23:49 Pain: Denies pain. Neuro: Reports a syncopal episode weakness. Cardiovascular: Rhythm kg is regular. Respiratory: No deficits noted. Airway is patent Breath sounds are clear bilaterally. GI: No deficits noted. : No deficits noted. EENT: No deficits noted. Derm: No deficits noted. Musculoskeletal: Reports weakness in chest, abdomen, pelvis, right arm, right hand, left arm, left hand, right leg, right foot, left leg and left foot. 02/25 02:28 Reassessment: Patient appears in no apparent distress at this time. Patient and/or iw family updated on plan of care and expected duration. Pain level reassessed. Patient is alert, oriented x 3, equal unlabored respirations, skin warm/dry/pink. 03:45 Reassessment: No changes from previously documented assessment. Patient is alert, cr4 oriented x 3, equal unlabored respirations, skin warm/dry/pink. Patient states symptoms have not improved. Neuro: Reports dizziness. GI: Reports nausea. 04:27 Reassessment: No changes from previously documented assessment. Neuro: Reports cr4 dizziness. GI: Reports nausea. 05:00 Reassessment: No changes from previously documented assessment. Patient and/or family cr4 updated on plan of care and expected duration. Pain level reassessed. 06:00 Reassessment: Patient and/or family updated on plan of care and expected duration. Pain cr4 level reassessed. Patient is alert, oriented x 3, equal unlabored respirations, skin warm/dry/pink. with eyes closed breathing regular.. Vital Signs: 02/24 23:44 BP 124 / 54; Pulse 52; Resp 16; Temp 97.4; Pulse Ox 98% on R/A; iw 02/25 02:00 BP 107 / 72 Supine; Pulse 74; Resp 16; iw 02:05 BP 104 / 77 Sitting; Pulse 89; iw 02:10 BP 126 / 88 Standing; Pulse 102; iw 03:00 BP 104 / 45; Pulse 58; Resp 1; Pulse Ox 100% ; cr4 04:00 BP 118 / 71; Pulse 66; Resp 16; Pulse Ox 99% ; cr4 05:00 BP 91 / 51; Pulse 55; Resp 16; Pulse Ox 100% ; Pain 0/10; cr4 06:00 BP 105 / 78; Pulse 55; Resp 18; Pulse Ox 100% ; cr4 ED Course: 02/24 23:42 Patient arrived in ED. iw 23:43 Reyes Chambers MD is Attending Physician. mh7 23:44 Triage completed. iw 23:44 Arm band placed on. iw 23:47 Estephanie Vargas is Primary Nurse. kg 23:48 Patient has correct armband on for positive identification. Bed in low position. Call kg light in reach. Side rails up X2. 23:48 Inserted saline lock: 20 gauge in right antecubital area, using aseptic technique. kg 05/07 00:01 Basic Metabolic Panel Sent. kg 00:01 CBC with Diff Sent. kg 00:23 CBC with Automated Diff Sent. kg 00:23 Basic Metabolic Panel Sent. kg 00:23 LFT's Sent. kg 00:23 Magnesium Sent. kg 00:23 NT PRO-BNP Sent. kg 00:23 PT-INR Sent. kg 01:16 XRAY Chest (1 view) In Process Unspecified. EDMS 01:29 CT Head Brain wo Cont In Process Unspecified. EDMS 03:52 CT Chest For PE Angio In Process Unspecified. EDMS 03:52 CT Abd/Pelvis - IV Contrast Only In Process Unspecified. EDMS 04:41 Dakota Soria MD is Hospitalizing Provider. 7 06:05 COVID-19 : Document "Date of Symptom Onset" if Symptomatic. Sent. cr4 06:21 No provider procedures requiring assistance completed. cr4 10:16 Patient admitted, IV remains in place. ss Administered Medications: Discontinued: NS 0.9% 1000 ml IV at 1000 ml once 00:23 Drug: NS 0.9% 1000 ml Route: IV; Rate: 1000 ml; Site: right antecubital; kg 03:53 Drug: Zofran (Ondansetron) 4 mg Route: IVP; Site: right antecubital; cr4 04:27 Drug: NS 0.9% 1000 ml Route: IV; Rate: 1000 ml; Site: right antecubital; cr4 04:49 Drug: D5-1/2 NS 1000 ml Route: IV; Rate: per protocol; Site: right antecubital; cr4 Outcome: 04:42 Decision to Hospitalize by Provider. [place] 10:15 Admitted to ER Hold. Please see [facility] for further documentation. 10:15 Condition: good 10:15 Instructed on the need for admit. 10:16 Patient left the ED. Signatures: Dispatcher [employer] EDLavern Olsen RN RN Xiomy Parker RN RN cr4 Bianca Quan RN RN ss Holmes, Maurice, MD MD 7 Estephanie Vargsa
[2021-02-25] MEDS ORDERED: ALBUTEROL 2.5 MG/3 ML NEB SOL NEB PRN ×2 (04:49→17:00)
[2021-02-25] MEDS ORDERED: MORPHINE 4 MG/ML SYR IV PRN (04:49)
[2021-02-25] MEDS ORDERED: ACETAMINOPHEN 500 MG TAB PO PRN (04:49)
[2021-02-25] MEDS ORDERED: D5 0.45 NS 1,000 ML IV ONE ×2 (05:05→09:49)
--- NOTE | 2021-02-25 07:48 | EKG ---
Test Date: 2021-02-25 Test Time: 02:15:16 Stripper Shovel Operator: TALIA MEASUREMENT RESULTS: Intervals: Rate: 59 MS: 150 QRSD: 60 QT: 446 QTc: 441 [place]: P: 64 MS: 150 QRS: 6 T: 9 INTERPRETIVE STATEMENTS: Sinus bradycardia with sinus arrhythmia Nonspecific ST and T wave abnormality Abnormal ECG Compared to ECG 08/27/2020 16:41:10 ST (T wave) deviation now present Sinus tachycardia no longer present Myocardial infarct finding no longer present Electronically Signed On 02-25-21 07:48:12 CDT by Bishnu Borrero
[2021-02-25] MEDS ORDERED: D5 0.9 NS 1,000 ML IV SCH (08:00)
--- NOTE | 2021-02-25 08:17 | RAD REPORT ---
EXAM DESCRIPTION: Traci Single View02/25/2021 1:16 am CLINICAL HISTORY: Chest pain COMPARISON: 2019 FINDINGS: The lungs appear clear of acute infiltrate. The heart is borderline enlarged IMPRESSION: No acute abnormalities displayed
[2021-02-25] MEDS ORDERED: D5 0.9 NS 1,000 ML IV ONE (08:19)
[2021-02-25 08:27] VITALS: BMI 59.2
[2021-02-25] MEDS: D5 0.45 NS 1,000 ML IV SCH ×3 (09:33→22:37)
--- NOTE | 2021-02-25 10:47 | EKG ---
Test Date: 2021-02-25 Test Time: 02:37:56 High Risk Ob: TALIA MEASUREMENT RESULTS: Intervals: Rate: 61 WV: 146 QRSD: 62 QT: 406 QTc: 408 [place]: P: 70 WV: 146 QRS: 6 T: 11 INTERPRETIVE STATEMENTS: Normal sinus rhythm with sinus arrhythmia Low voltage QRS Nonspecific ST and T wave abnormality Abnormal ECG Compared to ECG 02/25/2021 02:15:16 Low QRS voltage now present Sinus bradycardia no longer present ST (T wave) deviation still present Electronically Signed On 02-25-21 10:46:34 CDT by Bishnu Borrero
[2021-02-25] MEDS: ENOXAPARIN 40 MG/0.4 ML SQ SCH (16:30)
[2021-02-25] MEDS: ONDANSETRON 4 MG/2 ML VIAL IV PRN (16:38)
--- NOTE | 2021-02-25 19:43 | P.HP ---
Certification for Inpatient Patient admitted to: Observation With expected LOS: <2 Midnights Practitioner: I am a practitioner with admitting privileges, knowledge of patient current condition, hospital course, and medical plan of care. Services: Services provided to patient in accordance with Admission requirements found in Title 42 Section 412.3 of the Code of Federal Regulations Patient History Date of Service: 02/25/21 Reason for admission: NOT EATING WELL History of Present Illness: COOPER IS 35 YEARS OLD OBESE LADY WHO HAD GASTRIC BYPASS SURGERY BY [facility] ABOUT A MONTH AGO AND COMES HERE SHE HAD SYNCOPE AND WAS FOUND TO HAVE DEHYDRATION. I ASKED HER HOW SHE FEELS AND SHE SAYS "SCARED". SHE HAS NO CHEST PAIN, NAUSEA, VOMITING OR ABDOMEN PAIN. Allergies No Known Allergies Allergy (Verified 08/27/20 22:21) Home Medications: B12 Patch 1 al DAILY 02/25/21 Biotin Patch 1 al DAILY 02/25/21 Calcium With Vitamin D3 1 al DAILY 02/25/21 Multivitamin Patch 1 appl DAILY 02/25/21 - Past Medical/Surgical History Has patient received pneumonia vaccine in the past: No Diabetic: No -: covid -: delivery -: gastric bypass - Family History Mother -: Hypertension - Social History Smoking Status: Never smoker Alcohol use: No CD- Drugs: No Caffeine use: Yes Place of Residence: Home Review of Systems 10-point ROS is otherwise unremarkable General: Weakness Physical Examination - Vital Signs Temperature: 96.8 F Blood Pressure: 108/66 Pulse: 81 Respirations: 16 Pulse Ox (%): 97 - Physical Exam General: Alert, In no apparent distress, Obese HEENT: Atraumatic, PERRLA, Mucous membr. moist/pink, EOMI, Sclerae nonicteric Neck: Supple, 2+ carotid pulse no bruit, No LAD, Without JVD or thyroid abnormality Respiratory: Clear to auscultation bilaterally, Normal air movement Cardiovascular: Regular rate/rhythm, Normal S1 S2 Gastrointestinal: Normal bowel sounds, No tenderness Musculoskeletal: No tenderness Integumentary: No rashes Neurological: Normal gait, Normal speech, Normal strength at 5/5 x4 extr, Normal tone, Normal affect Lymphatics: No axilla or inguinal lymphadenopathy - Studies Laboratory Data (last 24 hrs) 02/24/21 23:59: PT 16.6 H, INR 1.44 02/24/21 23:59: WBC 6.50, Hgb 12.7, Hct 39.3, Plt Count 172 02/24/21 23:59: Sodium 140, Potassium 3.3 L, BUN 7, Creatinine 0.82, Glucose 117 H, Magnesium 1.9, Total Bilirubin 0.5, AST 17, ALT 32, Alkaline Phosphatase 40 L Assessment and Plan - Problems (Diagnosis) (1) Syncope Current Visit: Yes Status: Acute Plan: SHE IS DEHYDRATED CLINICALLY. I SEE NO OBVIOUS CAUSE OF SYNCOPE OTHERWISE. CHECK CE EKG HAS NONSPECIFIC ABN. ORDER ECHO. CT SCANS OF CHEST ABDOMEN PELVIS ARE UNREMARKABLE. THERE IS NO SIGN OF PE. IV HYDRATION HER BP SEEMS LOW NORMAL. CHECK LAB IN AM. AMBULATE LOVENOX SC. TWO CULTURES. - Advance Directives Does patient have a Living Will: No Does patient have a Durable POA for Healthcare: No
[2021-02-26 07:24] LABS: Absolute Lymphocytes (CBC) 1.5 K/uL (0.7-4.9); Basophils % 0.6 % (0-1.3); Hematocrit 35.1 % (36.0-45.0); Lymphocytes % 33.2 % (15.3-44.8); MPV 12.3 fL (7.6-11.3); RBC Red Blood Cell Count 4.08 M/uL (3.86-4.86)
[2021-02-26 07:45] LABS: ALT/SGPT 24 U/L (12-78); AST/SGOT 13 U/L (15-37); Albumin 2.7 g/dL (3.4-5.0); Alkaline Phosphatase 33 U/L (45-117); BUN Blood Urea Nitrogen 2 mg/dL (7-18); Bicarbonate 27 mmol/L (21-32); Bilirubin Total 0.4 mg/dL (0.2-1.0); Glucose Level 114 mg/dL (74-106); Protein, Total 6.4 g/dL (6.4-8.2); Sodium Level 140 mmol/L (136-145)
[2021-02-26 07:48] LABS: Potassium 2.9 mmol/L (3.5-5.1)
[2021-02-26] MEDS: KCL 20 MEQ/100 mL IVPB 20 MEQ/100 ML BAG IV SCH ×3 (08:00→10:36)
--- NOTE | 2021-02-26 08:40 | RAD REPORT ---
EXAM DESCRIPTION: CT - Abdomen Pelvis W Contrast - 02/25/2021 6:16 am CLINICAL HISTORY: PE TECHNIQUE: Contiguous axial images obtained through the chest during angiographic phase following th e uneventful administration of IV contrast. Sagittal and coronal reformatted images were provided. VA P reformatted images were provided. This exam was performed according to our departmental dose-optimization program, which includes autom ated exposure control, adjustment of the mA and/or kV according to patient size and/or use of iterati ve reconstruction technique. COMPARISON: 08/22/2020 FINDINGS: Diagnostic quality: There is good opacification of the pulmonary arterial tree. Motion art ifact degrades image quality and limits evaluation of segmental and subsegmental vessels. Lungs: No focal consolidation. Airways are patent. Pleura: No effusion. No pneumothorax. Heart and pericardium: The heart is normal in size. No pericardial effusion. Mediastinum and flor: No pathologically enlarged lymph nodes. Lower neck and chest wall: Unremarkable Vessels: No pulmonary arterial filling defects. No thoracic aortic aneurysm. Bones: Unremarkable EXAM DESCRIPTION: CT ABDOMEN PELVIS WITH IV CONTRAST (accession [id number]) CLINICAL HISTORY: Abdominal distention TECHNIQUE: Contiguous axial images obtained through the abdomen and pelvis following the uneventful administration of IV contrast. Coronal and sagittal reformatted images were provided. This exam was performed according to our departmental dose-optimization program, which includes autom ated exposure control, adjustment of the mA and/or kV according to patient size and/or use of iterati ve reconstruction technique. COMPARISON: 02/21/2021 FINDINGS: Liver: The liver is enlarged and diffusely low in density compatible with steatosis. Gallbladder and biliary system: Unremarkable Pancreas: Unremarkable Spleen: Unremarkable Adrenals: Unremarkable Kidneys: Normal renal cortical enhancement. Subcentimeter cortical hypodensity at the lower pole on t he left which is too small to characterize. No calculi. No hydronephrosis. Bowel: Prior gastric bypass. No obstruction. No appreciable mucosal thickening. Appendix: Normal caliber appendix. No findings to suggest acute appendicitis. Urinary bladder: Unremarkable Reproductive: 2.8 cm right ovarian cyst mildly increased in size. The uterus and left ovary are unrem arkable as visualized. Lymph nodes: No pathologically enlarged lymph nodes. Peritoneum: No focal fluid collection. No free air. Vessels: No abdominal aortic aneurysm. Abdominal wall: Ventral abdominal wall port sites Bones: Unremarkable IMPRESSION: CTA CHEST: 1. Motion artifact degrades image quality and limits evaluation of segmental and subsegmental vesse ls. No central pulmonary embolic disease. 2. No focal infiltrate. CT ABDOMEN PELVIS: 1. 2.8 cm right ovarian cyst. No follow-up imaging is recommended. Reference: J Am Celestino Radiol 2013 ;10:675-681 2. Other findings as above. Electronically signed by: Awais Small MD 02/25/2021 4:08 AM CDT Due to temporary technical issues with the PACS/Fluency reporting system, reports are being signed by the in house radiologists without review as a courtesy to insure prompt reporting. The interpreting radiologist is fully responsible for the content of the report.
--- NOTE | 2021-02-26 08:42 | RAD REPORT ---
EXAM DESCRIPTION: CT - Head Brain Wo Cont - 02/25/2021 6:18 am CLINICAL HISTORY: The patient is 35 years old and is Female; SYNCOPE TECHNIQUE: Axial computed tomography images of the head/brain without intravenous contrast. Sagitt al and coronal reformatted images were created and reviewed. This CT exam was performed using one o r more of the following dose reduction techniques: automated exposure control, adjustment of the mA and/or kV according to patient size, and/or use of iterative reconstruction technique. COMPARISON: No relevant prior studies available. FINDINGS: Brain: Unremarkable. No hemorrhage. No significant white matter disease. No edema. Ventricles: Unremarkable. No ventriculomegaly. Bones/joints: Unremarkable. No acute fracture. Soft tissues: Unremarkable. Sinuses: Unremarkable as visualized. Mastoid air cells: Unremarkable as visualized. No mastoid effusion. IMPRESSION: No acute intracranial abnormality. Electronically signed by: Fransico Deutsch MD 02/25/2021 2:02 AM CDT Due to temporary technical issues with the PACS/Fluency reporting system, reports are being signed by the in house radiologists without review as a courtesy to insure prompt reporting. The interpreting radiologist is fully responsible for the content of the report.
--- NOTE | 2021-02-26 08:44 | RAD REPORT ---
EXAM DESCRIPTION: CT - Chest For Pe Angio - 02/25/2021 6:16 am CLINICAL HISTORY: PE TECHNIQUE: Contiguous axial images obtained through the chest during angiographic phase following th e uneventful administration of IV contrast. Sagittal and coronal reformatted images were provided. DC P reformatted images were provided. This exam was performed according to our departmental dose-optimization program, which includes autom ated exposure control, adjustment of the mA and/or kV according to patient size and/or use of iterati ve reconstruction technique. COMPARISON: 08/22/2020 FINDINGS: Diagnostic quality: There is good opacification of the pulmonary arterial tree. Motion art ifact degrades image quality and limits evaluation of segmental and subsegmental vessels. Lungs: No focal consolidation. Airways are patent. Pleura: No effusion. No pneumothorax. Heart and pericardium: The heart is normal in size. No pericardial effusion. Mediastinum and flor: No pathologically enlarged lymph nodes. Lower neck and chest wall: Unremarkable Vessels: No pulmonary arterial filling defects. No thoracic aortic aneurysm. Bones: Unremarkable EXAM DESCRIPTION: CT ABDOMEN PELVIS WITH IV CONTRAST (accession [id number]) CLINICAL HISTORY: Abdominal distention TECHNIQUE: Contiguous axial images obtained through the abdomen and pelvis following the uneventful administration of IV contrast. Coronal and sagittal reformatted images were provided. This exam was performed according to our departmental dose-optimization program, which includes autom ated exposure control, adjustment of the mA and/or kV according to patient size and/or use of iterati ve reconstruction technique. COMPARISON: 02/21/2021 FINDINGS: Liver: The liver is enlarged and diffusely low in density compatible with steatosis. Gallbladder and biliary system: Unremarkable Pancreas: Unremarkable Spleen: Unremarkable Adrenals: Unremarkable Kidneys: Normal renal cortical enhancement. Subcentimeter cortical hypodensity at the lower pole on t he left which is too small to characterize. No calculi. No hydronephrosis. Bowel: Prior gastric bypass. No obstruction. No appreciable mucosal thickening. Appendix: Normal caliber appendix. No findings to suggest acute appendicitis. Urinary bladder: Unremarkable Reproductive: 2.8 cm right ovarian cyst mildly increased in size. The uterus and left ovary are unrem arkable as visualized. Lymph nodes: No pathologically enlarged lymph nodes. Peritoneum: No focal fluid collection. No free air. Vessels: No abdominal aortic aneurysm. Abdominal wall: Ventral abdominal wall port sites Bones: Unremarkable IMPRESSION: CTA CHEST: 1. Motion artifact degrades image quality and limits evaluation of segmental and subsegmental vesse ls. No central pulmonary embolic disease. 2. No focal infiltrate. CT ABDOMEN PELVIS: 1. 2.8 cm right ovarian cyst. No follow-up imaging is recommended. Reference: J Am Celestino Radiol 2013 ;10:675-681 2. Other findings as above. Electronically signed by: Awais Small MD 02/25/2021 4:08 AM CDT Due to temporary technical issues with the PACS/Fluency reporting system, reports are being signed by the in house radiologists without review as a courtesy to insure prompt reporting. The interpreting radiologist is fully responsible for the content of the report.
[2021-02-26] MEDS: ENOXAPARIN 40 MG/0.4 ML SQ SCH (09:00)
[2021-02-26] MEDS: MECLIZINE HCL 12.5 MG TAB PO SCH ×3 (10:36→21:24)
[2021-02-26] MEDS: D5 0.45 NS 1,000 ML IV SCH ×2 (10:37→21:30)
--- NOTE | 2021-02-26 11:11 | P.PN ---
Subjective Date of Service: 02/26/21 Chief Complaint: NOT EATING WELL Subjective: Improving SHE IS DIZZY ALL NIGHT, SHE HAS NO DOUBLE VISION, NO HEADACHES. Review of Systems 10-point ROS is otherwise unremarkable General: Weakness, Malaise Physical Examination - Vital Signs Temperature: 96.8 F Blood Pressure: 95/57 Pulse: 51 Respirations: 17 Pulse Ox (%): 95 - Physical Exam General: Mild distress, Obese HEENT: Atraumatic, PERRLA, EOMI Neck: Supple, JVD not distended Respiratory: Clear to auscultation bilaterally, Normal air movement Cardiovascular: Regular rate/rhythm, Normal S1 S2 Gastrointestinal: Normal bowel sounds, No tenderness Musculoskeletal: No tenderness Integumentary: No rashes Neurological: Normal speech, Normal tone, Normal affect Lymphatics: No axilla or inguinal lymphadenopathy - Studies Medications List Reviewed: Yes Assessment And Plan - Current Problems (Diagnosis) (1) Syncope Current Visit: Yes Status: Acute Plan: SHE IS DEHYDRATED CLINICALLY. I SEE NO OBVIOUS CAUSE OF SYNCOPE OTHERWISE. CHECK CE EKG HAS NONSPECIFIC ABN. ORDER ECHO. CT SCANS OF CHEST ABDOMEN PELVIS ARE UNREMARKABLE. THERE IS NO SIGN OF PE. IV HYDRATION HER BP SEEMS LOW NORMAL. CHECK LAB IN AM. AMBULATE LOVENOX SC. TWO CULTURES. SE HAS NO NEURO DEFICITS. CT BRAIN IS NEGATIVE. BP STAYS LOW NORMAL. SHE CAN HAVE REBEKA'S BUT WITH REBEKA'S THE K USUALLY STAYS HIGH AND HER IS LOW. SHE MAY HAVE POTS SYNDROME THAT MAY DROP HER BP AND MAKE HER PASS OUT. THIS IS A CLINICAL DIAGNOSIS.
[2021-02-26] MEDS ORDERED: D5 0.45 NS 1,000 ML with POTASSIUM CL 40 MEQ IV SCH ×2 (12:00)
[2021-02-26] MEDS: MIDODRINE HCL 5 MG TABLET PO SCH ×2 (13:49→21:25)
[2021-02-26] MEDS ORDERED: POTASSIUM CL SA 10 MEQ TAB PO ONE (14:00)
[2021-02-27 07:23] LABS: BUN Blood Urea Nitrogen 2 mg/dL (7-18); Bicarbonate 26 mmol/L (21-32); Glucose Level 101 mg/dL (74-106); Potassium 3.1 mmol/L (3.5-5.1); Sodium Level 141 mmol/L (136-145)
[2021-02-27] MEDS: ENOXAPARIN 40 MG/0.4 ML SQ SCH (09:00)
[2021-02-27] MEDS: MECLIZINE HCL 12.5 MG TAB PO SCH ×3 (09:35→20:17)
[2021-02-27] MEDS: MIDODRINE HCL 5 MG TABLET PO SCH ×3 (09:35→20:17)
[2021-02-27] MEDS: D5 0.45 NS 1,000 ML IV SCH ×2 (09:35→23:00)
[2021-02-27] MEDS ORDERED: POTASSIUM 25 MEQ EFFERV TAB PO ONE (09:42)
[2021-02-27 11:19] LABS: Thyroid Stimulating Hormone 4.15 uIU/mL (0.360-3.740)
--- NOTE | 2021-02-27 14:25 | P.PN ---
Subjective Date of Service: 02/27/21 Chief Complaint: DIZZY, LIGHT HEADED, DOUBLE VISION. Subjective: No new changes SHE IS DIZZY ALL NIGHT, SHE HAS NO DOUBLE VISION, NO HEADACHES. SHE IS NOT ABLE TO WALK SHE IS LIGHTHEADED, HAS DOUBLE VISION. Physical Examination - Vital Signs Temperature: 96.6 F Blood Pressure: 93/50 Pulse: 60 Respirations: 16 Pulse Ox (%): 96 - Physical Exam General: Alert, Mild distress, Obese HEENT: Atraumatic, PERRLA, EOMI Neck: Supple, JVD not distended Respiratory: Clear to auscultation bilaterally, Normal air movement Cardiovascular: Regular rate/rhythm, Normal S1 S2 Gastrointestinal: Normal bowel sounds, No tenderness Musculoskeletal: No tenderness Integumentary: No rashes Neurological: Normal speech, Normal strength at 5/5 x4 extr, Normal tone, Sensation intact, Cranial nerves 3-12 intact, Normal affect Lymphatics: No axilla or inguinal lymphadenopathy - Studies Medications List Reviewed: Yes Assessment And Plan - Current Problems (Diagnosis) (1) Syncope Current Visit: Yes Status: Acute Plan: SHE IS DEHYDRATED CLINICALLY. I SEE NO OBVIOUS CAUSE OF SYNCOPE OTHERWISE. CHECK CE EKG HAS NONSPECIFIC ABN. ORDER ECHO. CT SCANS OF CHEST ABDOMEN PELVIS ARE UNREMARKABLE. THERE IS NO SIGN OF PE. IV HYDRATION HER BP SEEMS LOW NORMAL. CHECK LAB IN AM. AMBULATE LOVENOX SC. TWO CULTURES. SE HAS NO NEURO DEFICITS. CT BRAIN IS NEGATIVE. BP STAYS LOW NORMAL. SHE CAN HAVE REBEKA'S BUT WITH REBEKA'S THE K USUALLY STAYS HIGH AND HER IS LOW. SHE MAY HAVE POTS SYNDROME THAT MAY DROP HER BP AND MAKE HER PASS OUT. THIS IS A CLINICAL DIAGNOSIS. (2) Diplopia Current Visit: Yes Status: Acute Plan: I ORDERED MRI AND MRA IN AM. DR. MENG CONSULTED. I ORDERED THIAMINE LEVEL, B12, TSH, ACRA. ORDER ORTHOSTATIC BP CHECK. (3) Fatigue Current Visit: Yes Status: Acute (4) Lightheaded Current Visit: Yes Status: Acute
[2021-02-27] MEDS ORDERED: POTASSIUM CL SA 10 MEQ TAB PO ONE (17:35)
[2021-02-28] MEDS: D5 0.45 NS 1,000 ML IV SCH ×3 (03:00→23:14)
[2021-02-28] MEDS: LEVOTHYROXINE SOD 0.025 MG TAB PO SCH ×2 (06:00→06:04)
[2021-02-28] MEDS ORDERED: SODIUM CHLORIDE 0.9% 10ML INJ IV ONE (08:00)
[2021-02-28] MEDS ORDERED: COSYNTROPIN 0.25 MG VIAL IV ONE (08:00)
[2021-02-28] MEDS: ENOXAPARIN 40 MG/0.4 ML SQ SCH (09:00)
--- NOTE | 2021-02-28 10:12 | RAD REPORT ---
EXAM DESCRIPTION: MRI - MRA Head Wo Cont - 02/28/2021 9:15 am CLINICAL HISTORY: Weakness, stroke-like symptoms, altered mental status COMPARISON: CT head February 25 TECHNIQUE: Axial and coronal 3D [id number] image acquisition was performed. 3D rotational images were generated with source and reconstruction images reviewed. Horizontal and vertical axis rotation al views generated using MIP protocol. FINDINGS: No aneurysm or vascular malformation identified. The distal internal carotid arteries, distal vertebral arteries and basilar artery show no suspicious findings. Bilateral internal carotid and right middle cerebral arteries show no suspicious findings. Bilateral posterior cerebral arteries also without suspicious finding. Focal narrowing is seen at the origin of the left middle cerebral artery and significant luminal narrowing is present at the M1-M2 junction o f the left middle cerebral artery. IMPRESSION: Significant (greater than 50%) focal luminal narrowing involving the proximal portion of the left middle cerebral artery. This could reflect premature atherosclerotic change, vasospasm or p ossibly vasculitis. Remainder of the MRA head examination shows no significant finding.
--- NOTE | 2021-02-28 10:16 | RAD REPORT ---
EXAM DESCRIPTION: MRI - Brain W/Wo Cont - 02/28/2021 9:15 am CLINICAL HISTORY: AMS, WEAKNESS COMPARISON: MRA Head Wo Cont dated 02/28/2021 TECHNIQUE: Sagittal and axial T1-weighted images were obtained. Axial PD/heavily T2-weighted and T2- FLAIR images were obtained along with axial DWI/ADC mapping sequences. Coronal heavily T2 weighted s equence obtained. Axial and coronal post-contrast T1-weighted images were also obtained. A ml Multi marty contrast following utilized. FINDINGS: No intracranial hemorrhage, mass or acute infarction. Substantial portion of each frontal lobe is obscured on image acquisition including the diffusion-weighted imaging due to metal artifact from dental work. There is no edema or shift of midline structures. No extra-axial fluid collections. Rodriguez-matter/white matter junction is preserved. Signal voids are seen as a normal finding in the ma yuliya intracranial vessels. No sella or supra sella abnormality. Globe and orbital content assessment is too limited due to the dental artifact. Post-contrast images show normal enhancement. No dural thickening. Mastoid air cells are clear. Partial imaging of the paranasal sinuses show no suspicious findings. IMPRESSION: No infarction changes are present. No hemorrhage, mass or acute brain parenchymal findin g. Portions of each frontal lobe are obscured on some image acquisitions including the diffusion weighte d stroke assessment imaging due to artifact from dental hardware. Likelihood of a significant fronta l lobe process is felt to be very low.
--- NOTE | 2021-02-28 10:18 | RAD REPORT ---
EXAM DESCRIPTION: MRI - MRA Neck W/Wo Cont - 02/28/2021 9:15 am CLINICAL HISTORY: Weakness, altered mental status, stroke-like symptoms COMPARISON: MRI brain same date, MRA head same date TECHNIQUE: Axial and coronal 3D [id number] image acquisition was performed. 3D rotational images were generated with source and reconstruction images reviewed. Horizontal and vertical axis rotation al views generated using MIP protocol. FINDINGS: MRA neck imaging was nondiagnostic. Due to patient size, it was difficult to acquire image s bladder adequately time to the presence of the intravascular contrast. This created imaging there w as insufficient for evaluation. IMPRESSION: Nondiagnostic MRA neck examination due to technical factors as detailed. CT angiography of the neck would be an alternative means for assessment as clinical findings warrant.
[2021-02-28] MEDS: MIDODRINE HCL 5 MG TABLET PO SCH ×3 (11:18→20:57)
[2021-02-28] MEDS: MECLIZINE HCL 12.5 MG TAB PO SCH ×3 (11:18→20:57)
[2021-02-28] MEDS: VENLAFAXINE HCL XR 37.5MG CAP PO SCH (13:03)
--- NOTE | 2021-02-28 20:37 | P.PN ---
Subjective Date of Service: 02/28/21 Chief Complaint: DIZZY, LIGHT HEADED, DOUBLE VISION. Subjective: No new changes SHE IS DIZZY ALL NIGHT, SHE HAS NO DOUBLE VISION, NO HEADACHES. SHE IS NOT ABLE TO WALK SHE IS LIGHTHEADED, HAS DOUBLE VISION. SHE IS FATIGUED, GETS DIZZY. DR. MENG SAW THE PATIENT. I ORDERED MRI TO RULE OUT MS AND IT WAS RULED OUT. Review of Systems 10-point ROS is otherwise unremarkable General: Weakness Physical Examination - Vital Signs Temperature: 97.3 F Blood Pressure: 112/71 Pulse: 64 Respirations: 15 Pulse Ox (%): 97 - Physical Exam General: Mild distress, Obese HEENT: Atraumatic, PERRLA, EOMI Neck: Supple, JVD not distended Respiratory: Clear to auscultation bilaterally, Normal air movement Cardiovascular: Regular rate/rhythm, Normal S1 S2 Gastrointestinal: Normal bowel sounds, No tenderness Musculoskeletal: No tenderness Integumentary: No rashes Neurological: Normal speech, Normal tone, Normal affect Lymphatics: No axilla or inguinal lymphadenopathy - Studies Medications List Reviewed: Yes Assessment And Plan - Current Problems (Diagnosis) (1) Syncope Current Visit: Yes Status: Acute Plan: SHE IS DEHYDRATED CLINICALLY. I SEE NO OBVIOUS CAUSE OF SYNCOPE OTHERWISE. CHECK CE EKG HAS NONSPECIFIC ABN. ORDER ECHO. CT SCANS OF CHEST ABDOMEN PELVIS ARE UNREMARKABLE. THERE IS NO SIGN OF PE. IV HYDRATION HER BP SEEMS LOW NORMAL. CHECK LAB IN AM. AMBULATE LOVENOX SC. TWO CULTURES. SE HAS NO NEURO DEFICITS. CT BRAIN IS NEGATIVE. BP STAYS LOW NORMAL. SHE CAN HAVE REBEKA'S BUT WITH REBEKA'S THE K USUALLY STAYS HIGH AND HER IS LOW. SHE MAY HAVE POTS SYNDROME THAT MAY DROP HER BP AND MAKE HER PASS OUT. THIS IS A CLINICAL DIAGNOSIS. DR. MENG SUSPECTS SEIZURES. EEG REPORT IS PENDING. (2) Diplopia Current Visit: Yes Status: Acute Plan: I ORDERED MRI AND MRA IN AM. DR. MENG CONSULTED. I ORDERED THIAMINE LEVEL, B12, TSH, ACRA. ORDER ORTHOSTATIC BP CHECK. (3) Fatigue Current Visit: Yes Status: Acute (4) Lightheaded Current Visit: Yes Status: Acute
[2021-02-28] MEDS: levETIRAcetam 500 MG TAB PO SCH (20:57)
--- NOTE | 2021-03-01 00:08 | CON ---
Reason For Consultation: Consultation called by Dr. Soria because of syncope. History Of Present Illness: Ms. Morton is a 35-year-old patient, who reportedly had recent gastric b ypass surgery in [place] a month ago and while at home, apparently passed out. She was in the upright position and fainted. There was no clear description of what happened after, but per witnesses, no significant tonic or clonic activity, tongue biting or loss of bladder control. She took about 30 mi nutes to regain awareness and brought to [facility] and was found to be dehydrated. Her nova ging study included a brain MRI, which showed no acute ischemic or hemorrhagic change. Her head CT s can was also negative for any acute ischemic or hemorrhagic change. MRA of her head did show apparen tly greater than 50% left MCA narrowing. The patient does report a long history of migraine and with migraine may often have some abdominal pain, nausea, tingling and numbness over the body, which may shift from one side to the other. However, she denies any hemiplegic weakness with her migraines. I t should be noted that differential diagnosis for this area of narrowing includes possible arterial s pasms and vasculitis, less likely arthrosclerotic disease, which is not likely in this patient's ra g age. The patient has been back to her baseline. At the time of my evaluation, she was having an E EG done, which will be read later. Past Medical History: COVID-19. Past Surgical History: , gastric bypass. Family History: Positive hypertension in mother. Negative for seizures. Medications: At home, vitamin B12, Biotin, calcium, multivitamin. Allergies: NO KNOWN DRUG ALLERGIES. Social History: No alcohol, tobacco, or IV drug use. Review of Systems: Aside from indicated above, no recent fevers or chills, nausea, vomiting, myalgias, arthralgias, head ache, weight change, or rash. No psychiatric complaints. No active genitourinary or other issues. Physical Examination: Vital Signs: Blood pressure 112/71, pulse 64, respiratory rate 15, temperature 98.3, oxygen saturati on 98% on room air. Orthostatic blood pressure and pulse studies showed no significant changes from lying, sitting, and standing in terms of blood pressure. There were some changes with pulse rate. T he patient was asymptomatic. HEENT: She is normocephalic, atraumatic. Sclerae anicteric. Oropharynx is moist and pink. Neck: Supple. Chest: Clear. Heart: Regular. Extremities: No clubbing, cyanosis, or edema. Neurological: She is alert and oriented to person, place, situation and time. Follows all commands appropriately. Cranial nerves 2 through 12 intact. Motor 5/5 proximally and distally in the upper a nd lower extremities. Sensation intact in the upper and lower extremities. Her coordination is inta ct in the upper and lower extremities. Gait, she has normal stance, stride, and arm swing. Laboratory Studies: Complete blood count with differential is essentially unremarkable. Coagulation panel is unremarkable. Chemistries showed her thyroid-stimulating hormone level is elevated at 4.1, otherwise she did have a significantly low potassium of 2.9, which was corrected yesterday at 3.1. Liver function studies essentially unremarkable. Thiamine and vitamin B12 levels unremarkable. Urin alysis shows 4+ ketones, 1+ total protein. COVID-19 test is currently negative. 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 Assessment: Ms. Morton is a 35-year-old patient with dehydration, migraine. She has MCA 50% stenosi s, probably from arterial spasm and this is on the left. Also elevated thyroid-stimulating hormone a nd had hypokalemia, which may be contributing factors to her episode of syncope. Plan: 1.Follow up the patient's EEG as outpatient. 2.Make sure she is on continued treatment or replacement for potassium, which is likely low again. 3.Aspirin 81 mg daily. 4.Address thyroid condition as per primary team. 5.She should maintain an event diary and may require outpatient monitoring for event characterizatio n if necessary. 6.She should follow up in Dr. Riuz's office within a month of discharge. BERENICE/TRISTIAN Voice ID: [id number] Report ID: [id number]
[2021-03-01] MEDS: LEVOTHYROXINE SOD 0.025 MG TAB PO SCH (06:28)
[2021-03-01 06:46] LABS: BUN Blood Urea Nitrogen 2 mg/dL (7-18); Bicarbonate 28 mmol/L (21-32); Glucose Level 97 mg/dL (74-106); Potassium 3.3 mmol/L (3.5-5.1); Sodium Level 142 mmol/L (136-145)
[2021-03-01] MEDS: MECLIZINE HCL 12.5 MG TAB PO SCH ×2 (07:52→13:30)
[2021-03-01] MEDS: VENLAFAXINE HCL XR 37.5MG CAP PO SCH ×2 (07:52→08:01)
[2021-03-01] MEDS: levETIRAcetam 500 MG TAB PO SCH (07:53)
[2021-03-01] MEDS: MIDODRINE HCL 5 MG TABLET PO SCH ×2 (07:53→13:29)
[2021-03-01] MEDS: ONDANSETRON 4 MG/2 ML VIAL IV PRN (07:54)
[2021-03-01] MEDS: ENOXAPARIN 40 MG/0.4 ML SQ SCH (07:54)
--- NOTE | 2021-03-01 08:05 | ECHO ---
HEIGHT: 5 ft 4 in WEIGHT: 345 lb 0 oz DATE OF STUDY: 02/28/[address]: Dakota Soria MD 2-DIMENSIONAL: YES M.MODE: YES DOPPLER: YES COLOR FLOW: YES TDS: YES PORTABLE: NO DEFINITY: NO BUBBLE STUDY: NO DIAGNOSIS: SYNCOPE CARDIAC HISTORY: CATHERIZATION: NO SURGERY: NO PROSTHETIC VALVE: NO PACEMAKER: NO MEASUREMENTS (cm) DIASTOLIC (NORMALS) SYSTOLIC (NORMALS) IVSd 0.9 (0.6-1.2) LA Diam 3.2 (1.9-4.0) LVEF 55-60% LVIDd 4.4 (3.5-5.7) LVIDs 3.3 (2.0-3.5) %FS 26% LVPWd 1.0 (0.6-1.2) Ao Diam 2.5 (2.0-3.7) 2 DIMENSIONAL ASSESSMENT: RIGHT ATRIUM: NORMAL LEFT ATRIUM: NORMAL RIGHT VENTRICLE: NORMAL LEFT VENTRICLE: NORMAL TRICUSPID VALVE: MITRAL VALVE: NORMAL PULMONIC VALVE: NORMAL AORTIC VALVE: NORMAL PERICARDIAL EFFUSION: NONE AORTIC ROOT: NORMAL LEFT VENTRICULAR WALL MOTION: NORMAL DOPPLER/COLOR FLOW: SEE BELOW. COMMENTS: NORMAL LEFT VENTRICULAR EJECTION FRACTION 55-60%. NORMAL WALL MOTION. MILD TRICUSPID REGURGITATION. TECHNOLOGIST: Leonides LEÓN
[2021-03-01] MEDS ORDERED: POTASSIUM CL SA 10 MEQ TAB PO ONE (08:15)
[2021-03-01] MEDS ORDERED: KCL 20 MEQ/100 mL IVPB 20 MEQ/100 ML BAG IV SCH (09:00)
[2021-03-01 10:01] VITALS: O2SAT 93
--- NOTE | 2021-03-01 12:11 | P.DS ---
Admission Date: 02/25/21 Discharge Date: 03/01/21 Disposition: ROUTINE DISCHARGE Discharge Condition: FAIR Reason for Admission: DIZZY, LIGHT HEADED, DOUBLE VISION. - Problems (1) Syncope Current Visit: Yes Status: Acute (2) Diplopia Current Visit: Yes Status: Acute (3) Fatigue Current Visit: Yes Status: Acute (4) Lightheaded Current Visit: Yes Status: Acute Brief History of Present Illness: COOPER IS 35 YEARS OLD OBESE LADY WHO HAD GASTRIC BYPASS SURGERY BY [facility] ABOUT A MONTH AGO AND COMES HERE SHE HAD SYNCOPE AND WAS FOUND TO HAVE DEHYDRATION. I ASKED HER HOW SHE FEELS AND SHE SAYS "SCARED". SHE HAS NO CHEST PAIN, NAUSEA, VOMITING OR ABDOMEN PAIN. Hospital Course: COOPER HAD GASTRIC BYPASS SURGERY IN [place]. SHE COMES TO ER SHE PASSED OUT AT HOME. WE DID NOT FIND ANY ACUTE REASONS FOR IT. HER BP WAS LOW IN THE BEGINING, SHE WAS DEHYDRATED BUT AFTER HYDRATION SHE CONTINUED TO COMPLAIN OF DIZZINESS. I ORDERED MRI STROKE PROTOCOL THAT WAS NEG. SHE REFUSED TO DO ACTH STIM TEST. EEG WAS DONE. WE PUT HER ON KEPPRA DR. MENG CLINICALLY SUSPECTS SHE HAS SEIZURES. SHE WILL FU WITH HIM. SHE IS ABLE TO WALK TO RESTROOM WITHOUT FALLING OR PASSING OUT. HER ORTHOSTATIC CHANGES DID NOT DROP BP. SHE IS STABLE. Vital Signs/Physical Exam: Temp Pulse Resp BP Pulse Ox 98 F 55 18 130/62 99 03/01/21 08:00 03/01/21 08:00 03/01/21 08:00 03/01/21 08:00 03/01/21 08:00 General: Oriented x3, Obese HEENT: Atraumatic, PERRLA, EOMI Neck: Supple, JVD not distended Respiratory: Clear to auscultation bilaterally, Normal air movement Cardiovascular: Regular rate/rhythm, Normal S1 S2 Gastrointestinal: Normal bowel sounds, No tenderness Musculoskeletal: No tenderness Integumentary: No rashes Neurological: Normal speech, Normal tone, Normal affect Lymphatics: No axilla or inguinal lymphadenopathy Laboratory Data at Discharge: WBC 4.60 K/uL (4.3-10.9) D 02/26/21 07:05 Hgb 11.3 g/dL (12.0-15.0) L 02/26/21 07:05 Hct 35.1 % (36.0-45.0) L 02/26/21 07:05 Plt Count 142 K/uL (152-406) L 02/26/21 07:05 PT 16.6 SECONDS (9.5-12.5) H 02/24/21 23:59 INR 1.44 02/24/21 23:59 Sodium 142 mmol/L (136-145) 03/01/21 06:11 Potassium 3.3 mmol/L (3.5-5.1) L 03/01/21 06:11 BUN 2 mg/dL (7-18) L 03/01/21 06:11 Creatinine 0.64 mg/dL (0.55-1.3) 03/01/21 06:11 Glucose 97 mg/dL (74-106) 03/01/21 06:11 Magnesium 1.9 mg/dL (1.8-2.4) 02/24/21 23:59 Total Bilirubin 0.4 mg/dL (0.2-1.0) 02/26/21 07:05 AST 13 U/L (15-37) L 02/26/21 07:05 ALT 24 U/L (12-78) 02/26/21 07:05 Alkaline Phosphatase 33 U/L (45-117) L 02/26/21 07:05 Troponin I < 0.02 ng/mL (0.0-0.045) 02/25/21 17:57 Home Medications: B12 Patch 1 al DAILY 02/25/21 Biotin Patch 1 al DAILY 02/25/21 Calcium With Vitamin D3 1 al DAILY 02/25/21 Multivitamin Patch 1 appl DAILY 02/25/21 Meclizine HCl [Antivert*] 25 mg PO TID #90 tab 03/01/21 Midodrine HCl [Proamatine*] 5 mg PO TID #90 tab 03/01/21 Potassium Chloride [Klor-Con M20] 20 meq PO DAILY #90 tab.er.prt 03/01/21 Venlafaxine HCl *Xr* [Effexor XR*] 37.5 mg PO DAILY #30 cap 03/01/21 levETIRAcetam [Keppra*] 250 mg PO BID #60 tab 03/01/21 New Medications: Meclizine HCl [Antivert*] 25 mg PO TID #90 tab Venlafaxine HCl *Xr* [Effexor XR*] 37.5 mg PO DAILY #30 cap levETIRAcetam [Keppra*] 250 mg PO BID #60 tab Potassium Chloride [Klor-Con M20] 20 meq PO DAILY #90 tab.er.prt Midodrine HCl [Proamatine*] 5 mg PO TID #90 tab Followup: Dakota Soria MD [ACTIVE - CAN ADMIT] - Unknown,U [Primary Care Provider] -
[2021-03-01 12:41] VITALS: BP 111/59; TEMP 98.5
--- NOTE | 2021-03-07 10:56 | EEG ---
CHART: [id number] TEST ID#: [id number] DATE OF STUDY: 02/28/2021 THE EEG WAS RECORDED PORTABLE IN THE PATIENT'S ROOM ON A 17 CHANNEL MACHINE. ELECTRODES WERE APPLIED IN THE USUAL MANNER USING THE INTERNATIONAL 10-20 SYSTEM. THE WAKING BACKGROUND RHYTHM IN THIS RECORD CONSISTS OF VERY WELL DEVELOPED AND WELL ORGANIZED WAVES OF 11 HZ., MAXIMAL IN THE POSTERIOR HEAD REGIONS WHICH ATTENUATE NORMALLY WITH EYE OPENING. LOW-VOLTAGE 18-22 HZ ACTIVITY IS EXPRESSED IN THE FRONTAL REGIONS. THERE ARE NO FOCAL OR LATERALIZING FEATURES. NO EPILEPTIFORM ACTIVITY APPEARS. SLEEP OCCURRED NATURALLY. IN ADDITION NORMAL SLEEP PATTERNS ARE PRESENT. HYPERVENTILATION WAS NOT PERFORMED. PHOTIC STIMULATION PRODUCED GOOD DRIVING BILATERALLY. IMPRESSION: NORMAL EEG FOR THE AGE OF THE PATIENT IN [place], DROWSINESS AND SLEEP.
== END 2021-03-01 15:06 | disposition home or self-care (01) | DRG 641 ==
LOC: ER 23:37 → ERHOLD 02-25 04:54 → 4TH 02-25 09:57 → 2ND 02-28 17:56
PROVIDERS: ADMIT Internal Medicine; ATTEND Internal Medicine
DX: E86.0 Dehydration (principal); Z68.43 Body mass index [BMI] 50.0-59.9, adult; E66.9 Obesity, unspecified; H53.2 Diplopia; G43.909 Migraine, unspecified, not intractable, without status migrainosus; E87.6 Hypokalemia; R53.83 Other fatigue; R42 Dizziness and giddiness; R56.9 Unspecified convulsions; R55 Syncope and collapse; Z98.84 Bariatric surgery status; Z86.16 Personal history of COVID-19; Z79.899 Other long term (current) drug therapy; Z20.822 Contact with and (suspected) exposure to COVID-19
CPT/HCPCS: 36415; 70450; 70544; 70549; 70553; 71045; 71275; 74177; 80048; 80053; 80076; 81003; 81025; 82607; 82947; 83735; 83880; 84132; 84238; 84425; 84439; 84443; 84484; 85025; 85610; 87040; 93005; 93306; 95819; 96374; 96375; 97112; 97116; 97161; 97530; 99285; A9577; J0834; J1650; J2405; J3480; J7030; J7042; J7799; Q9967; U0003

== ENCOUNTER 2021-08-09 17:06 | Emergency (ER) | payer SELFPAY ==
--- NOTE | 2021-08-09 20:14 | RAD REPORT ---
EXAM DESCRIPTION: Traci Single View08/09/2021 8:07 pm CLINICAL HISTORY: Syncope COMPARISON: February 2021 FINDINGS: The lungs appear clear of acute infiltrate. The heart is normal size IMPRESSION: No acute abnormalities displayed
--- NOTE | 2021-08-09 20:38 | RAD REPORT ---
EXAM DESCRIPTION: CT - Head Brain Wo Cont - 08/09/2021 8:20 pm CLINICAL HISTORY: Syncope COMPARISON: February 2021 TECHNIQUE: Computed axial tomography of the head was obtained. IV contrast was not requested. All CT scans are performed using dose optimization technique as appropriate and may include automated exposure control or mA/KV adjustment according to patient size. FINDINGS: An intracranial bleed is not seen . The ventricles are normal in caliber. No extra-axial fluid collection is noted. Fluid within the sinuses/ mastoids is not seen. IMPRESSION: No acute intracranial abnormality is seen. If patient's symptoms persist MRI of the bra in would be recommended.
[2021-08-09 21:02] LABS: Basophils % 0.8 % (0-1.3); Hematocrit 37.1 % (36.0-45.0); MPV 11.2 fL (7.6-11.3); RBC Red Blood Cell Count 4.16 M/uL (3.86-4.86)
[2021-08-09 21:03] LABS: Protime INR 1.11
[2021-08-09 21:15] LABS: ALT/SGPT 25 U/L (12-78); AST/SGOT 17 U/L (15-37); Albumin 3.7 g/dL (3.4-5.0); Alkaline Phosphatase 42 U/L (45-117); BUN Blood Urea Nitrogen 5 mg/dL (7-18); Bicarbonate 25 mmol/L (21-32); Bilirubin Direct 0.2 mg/dL (0-0.2); Bilirubin Total 0.6 mg/dL (0.2-1.0); Glucose Level 90 mg/dL (74-106); Magnesium 2.4 mg/dL (1.8-2.4); NT PRO-BNP 132 pg/mL (<125); Potassium 3.1 mmol/L (3.5-5.1); Protein, Total 7.4 g/dL (6.4-8.2); Sodium Level 144 mmol/L (136-145); Troponin (Emerg Dept Use Only) < 0.02 ng/mL (0.0-0.045)
[2021-08-09 21:18] LABS: Urine Blood Negative (Negative); Urine Glucose Negative (Negative); Urine Protein Negative (Negative); Urine Specific Gravity >=1.030 (1.005-1.030)
[2021-08-09 21:56] LABS: Urine Bacteria <20 /HPF (<20); Urine Mucus 1+ /HPF (NONE SEEN); Urine RBC <5 /HPF (NONE SEEN)
[2021-08-09 22:31] LABS: Urine Specific Gravity/Preg >1.030 (1.005-1.030)
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
[2021-08-09 23:22] VITALS: TEMP 97.4
[2021-08-09] MEDS ORDERED: POTASSIUM CL SA 10 MEQ TAB PO ONE (23:25)
[2021-08-09] MEDS ORDERED: CEPHALEXIN 250 MG CAP ONE (23:25)
[2021-08-09 23:31] VITALS: BP 120/74; O2SAT 100
== END 2021-08-09 23:09 | disposition home or self-care (01) ==
LOC: ER 17:06
DX: E87.6 Hypokalemia (principal); N39.0 Urinary tract infection, site not specified
CPT/HCPCS: 36415; 70450; 71045; 80048; 80076; 81003; 81015; 81025; 83735; 83880; 84484; 85025; 85610; 87077; 87086; 87088; 87186; 93005; 99283

== ENCOUNTER 2021-10-11 22:47 | Emergency (ER) | payer SELFPAY ==
--- OUTSIDE RECORDS SUMMARY | 2021-10-11 22:50 | XMS REPORT | Continuity of Care Document ---
:1985 Author Organization [facility] t Address [address] [place] [address] Care Team Providers Name Role Phone Je VARGHESE Attending Clinician Payers Payer Name Policy Type Policy Number Effective Date Expiration Date S ource Problems This patient has no known problems. Allergies, Adverse Reactions, Alerts This patient has no known allergies or adverse reactions. Social History Social Habit Start Date Stop Date Quantity Comments Source Alcohol intake [facility] Medical Branch History [facility] Alcohol Std Drinks Medica l Branch History [facility] Alcohol Binge Medical Bra [facility] Sex Assigned [facility] Medical Branch History [facility] 2019-07-02 2019-07-02 1 [employer] [facility] Alcohol Frequency 00:00:00 00:00:00 Medical Branch Smoking Status Start Date Stop Date Source Never smoker [facility] Branch Medications Ordered Filled Start Stop Current Ordering Indication Dosage Frequency Signature Comments Components Source Medication Medication Date Date Medication? Clinician (SIG) Name Name ibuprofen Yes 600mg Take 1 Unive rs (MOTRIN) 7-12 tablet by ity of 600 mg 00:00: mouth [place] tablet 00 every 6 Medical (six) Branch hours as needed for Pain (scale 4-6). ibuprofen 0 Yes 600mg Take 1 Unive rs (MOTRIN) 7-12 tablet by ity of 600 mg 00:00: mouth [place] tablet 00 every 6 Medical (six) Branch hours as needed for Pain (scale 4-6). ibuprofen 0 Yes 600mg Take 1 Unive rs (MOTRIN) 7-12 tablet by ity of 600 mg 00:00: mouth [place] tablet 00 every 6 Medical (six) Branch hours as needed for Pain (scale 4-6). ibuprofen 0 Yes 600mg Take 1 Unive rs (MOTRIN) 7-12 tablet by ity of 600 mg 00:00: mouth [place] tablet 00 every 6 Medical (six) Branch hours as needed for Pain (scale 4-6). Vital Signs Vital Name Observation Time Observation Value Comments Source Systolic blood 2019-07-02 20:30:00 137 mm[Hg] Univer sity of pressure [facility] Diastolic blood 2019-07-02 20:30:00 91 mm[Hg] Unive rsity of [facility] Heart rate 2019-07-02 20:30:00 90 /min [facility] Body temperature 2019-07-02 20:30:00 36.83 Wen [facility] Respiratory rate 2019-07-02 20:30:00 18 /min [facility] Body height 2019-07-02 20:30:00 162.6 cm [facility] Body weight 2019-07-02 20:30:00 155.13 kg [facility] BMI 2019-07-02 20:30:00 58.70 kg/m2 [facility] Procedures This patient has no known procedures. Encounters Start End Encounter Admission Attending Care Care Encounter Source Date/Time Date/Time Type Type Clinicians Facility Department ID 2019-07-08 2019-07-08 Case Je PRDAVID [id number] [facility] 00:00:00 00:00:00 Management Sheryl Keanu [id number] [phone] Pa [place]ical nal [address] 2019-07-02 2019-07-02 Office JONN Wooten [id number] [facility] 15:20:19 15:54:38 Visit Sheryl Colunga [id number] [id number] [phone] Pa [place]ical nal [address] [facility] Results This patient has no known results.
[2021-10-11] MEDS ORDERED: ACETAMINOPHEN 500 MG TAB ONE (23:34)
--- NOTE | 2021-10-12 01:18 | ER ---
Nurse's Notes [facility] Name: Larry Morton Age: 36 yrs Sex: Female : 1985 Arrival Date: 10/11/2021 Time: 22:49 Bed 19 Private MD: Diagnosis: Headache Presentation: 10/11 23:05 Chief complaint: Patient states: Headache that began 2 days ago, became severe about lp1 1800 with some dizziness; Requests COVID swab, possibly exposed at work. Coronavirus screen: headache. Ebola Screen: No symptoms or risks identified at this time. Initial Sepsis Screen: Does the patient meet any 2 criteria? No. Patient's initial sepsis screen is negative. Does the patient have a suspected source of infection? No. Patient's initial sepsis screen is negative. Risk Assessment: Do you want to hurt yourself or someone else? Patient reports no desire to harm self or others. Onset of symptoms was October 11, 2021. 23:05 Method Of Arrival: Ambulatory lp1 23:05 Acuity: CELESTINO 3 lp1 Triage Assessment: 10/12 01:37 Pain: Pain at worst was 8 out of 10 on a pain scale. Pain began 1 day ago. Also kd3 complains of no other associated symptoms. 01:37 Headache History: Denies prior headaches. General: Appears in no apparent distress. 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 - Social history:: Smoking status: Patient denies any tobacco usage or history of. Screenin:07 Abuse screen: Denies threats or abuse. Denies injuries from another. Nutritional lp1 screening: No deficits noted. Tuberculosis screening: No symptoms or risk factors identified. Fall Risk None identified. Assessment: 23:59 General: Appears in no apparent distress. Behavior is calm, cooperative, appropriate kd3 for age. Pain: Complains of pain in face and scalp. Neuro: No deficits noted. Level of Consciousness is awake, alert, obeys commands, Oriented to person, place, time, situation. Cardiovascular: No deficits noted. Patient's skin is warm and dry. Respiratory: No deficits noted. Airway is patent Trachea midline Respiratory effort is even, unlabored, Respiratory pattern is regular. GI: No deficits noted. : No deficits noted. EENT: No deficits noted. Derm: No deficits noted. Musculoskeletal: No deficits noted. Vital Signs: 23:05 BP 127 / 79; Pulse 74; Resp 18; Temp 97.3; Pulse Ox 100% on R/A; Weight 108.86 kg; lp1 Height 5 ft. 4 in. (162.56 cm); Pain 10/10; 23:05 Body Mass Index 41.20 (108.86 kg, 162.56 cm) lp1 Paul Coma Score: 10/12 01:15 Eye Response: spontaneous(4). Verbal Response: oriented(5). Motor Response: obeys 7 commands(6). Total: 15. ED Course: 10/11 22:49 Patient arrived in ED. kc5 23:07 Triage completed. lp1 23:07 Arm band placed on right wrist. lp1 23:08 Reyes Chambers MD is Attending Physician. 7 23:08 Patient has correct armband on for positive identification. lp1 23:21 COVID swab sent to lab. lp1 23:25 Deidre Vasquez RN is Primary Nurse. kd3 23:36 COVID-19 SARS RT PCR (Document "Date of Onset" if Symptomatic) Sent. kd3 10/12 01:37 No provider procedures requiring assistance completed. Patient did not have IV access kd3 during this emergency room visit. Administered Medications: 10/11 23:36 Drug: Tylenol 1000 mg Route: PO; kd3 Outcome: 10/12 01:17 Discharge ordered by . mh7 01:26 Patient left the ED. kd3 01:37 Discharged to home ambulatory. kd3 01:37 Condition: stable 01:37 Discharge instructions given to patient, Instructed on discharge instructions, follow up and referral plans. Demonstrated understanding of instructions, follow-up care. Signatures: Yadi Causey RN RN 1 Reyes Chambers MD MD [facility] Deidre Vasquez RN RN 3 Corie De Luna kc5
--- NOTE | 2021-10-12 01:18 | EDPHYS ---
Physician Documentation [facility] Name: Larry Morton Age: 36 yrs Sex: Female : 1985 Arrival Date: 10/11/2021 Time: 22:49 Bed 19 Private MD: ED Physician Reyes Chambers HPI: 10/11 23:39 This 36 yrs old Black Female presents to ER via Ambulatory with complaints of Headache. mh7 23:39 The patient complains of pain to the forehead. The patient describes the headache as mh7 intermittent, throbbing, waxing and waning. Onset: The symptoms/episode began/occurred 2 day(s) ago. Associated signs and symptoms: Pertinent positives: dizziness, Photophobia Pertinent negatives: altered mental status, fever, malaise, nausea, neck stiffness, paresthesias, rash, sinus congestion, sinus tenderness, vision changes, vision loss, vomiting, weakness, vertigo. Severity of symptoms: At its worst the pain was moderate, earlier today, in the emergency department the pain has improved, moderately. Headache History: The patient has had previous headaches and this one is similar to previous episodes. The symptoms are alleviated by nothing. Did not take any medication the symptoms are aggravated by lights, noise. The patient has experienced similar episodes in the past, several times. Patient states headache started 2 days ago. She states she is concerned about having possible contact with coworkers with Covid and wants testing done.. 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 - Social history:: Smoking status: Patient denies any tobacco usage or history of. ROS: 23:39 Constitutional: Negative for fever, chills, and weight loss, Eyes: Negative for injury, mh7 pain, redness, and discharge, ENT: Negative for injury, pain, and discharge, Neck: Negative for injury, pain, and swelling, Cardiovascular: Negative for chest pain, palpitations, and edema, Respiratory: Negative for shortness of breath, cough, wheezing, and pleuritic chest pain, Abdomen/GI: Negative for abdominal pain, nausea, vomiting, diarrhea, and constipation, Back: Negative for injury and pain, : Negative for injury, bleeding, discharge, and swelling, MS/Extremity: Negative for injury and deformity, Skin: Negative for injury, rash, and discoloration, Psych: Negative for depression, anxiety, suicide ideation, homicidal ideation, and hallucinations, Allergy/Immunology: Negative for hives, rash, and allergies, Endocrine: Negative for neck swelling, polydipsia, polyuria, polyphagia, and marked weight changes, Hematologic/Lymphatic: Negative for swollen nodes, abnormal bleeding, and unusual bruising. 23:39 Neuro: Negative for altered mental status, gait disturbance, hearing loss, loss of consciousness, numbness, seizure activity, speech changes, syncope, near syncope, tingling, tinnitus, tremor, visual changes, weakness. Exam: 23:39 Constitutional: This is a well developed, well nourished patient who is awake, alert, mh7 and in no acute distress. Head/Face: Normocephalic, atraumatic. Eyes: Pupils equal round and reactive to light, extra-ocular motions intact. Lids and lashes normal. Conjunctiva and sclera are non-icteric and not injected. Cornea within normal limits. Periorbital areas with no swelling, redness, or edema. ENT: Nares patent. No nasal discharge, no septal abnormalities noted. Tympanic membranes are normal and external auditory canals are clear. Oropharynx with no redness, swelling, or masses, exudates, or evidence of obstruction, uvula midline. Mucous membranes moist. Neck: Trachea midline, no thyromegaly or masses palpated, and no cervical lymphadenopathy. Supple, full range of motion without nuchal rigidity, or vertebral point tenderness. No Meningismus. Chest/axilla: Normal chest wall appearance and motion. Nontender with no deformity. No lesions are appreciated. Cardiovascular: Regular rate and rhythm with a normal S1 and S2. No gallops, murmurs, or rubs. Normal PMI, no JVD. No pulse deficits. Respiratory: Lungs have equal breath sounds bilaterally, clear to auscultation and percussion. No rales, rhonchi or wheezes noted. No increased work of breathing, no retractions or nasal flaring. Abdomen/GI: Soft, non-tender, with normal bowel sounds. No distension or tympany. No guarding or rebound. No evidence of tenderness throughout. Back: No spinal tenderness. No costovertebral tenderness. Full range of motion. Skin: Warm, dry with normal turgor. Normal color with no rashes, no lesions, and no evidence of cellulitis. MS/ Extremity: Pulses equal, no cyanosis. Neurovascular intact. Full, normal range of motion. Neuro: Awake and alert, GCS 15, oriented to person, place, time, and situation. Cranial nerves II-XII grossly intact. Motor strength 5/5 in all extremities. Sensory grossly intact. Cerebellar exam normal. Normal gait. Psych: Awake, alert, with orientation to person, place and time. Behavior, mood, and affect are within normal limits. Vital Signs: 23:05 BP 127 / 79; Pulse 74; Resp 18; Temp 97.3; Pulse Ox 100% on R/A; Weight 108.86 kg; lp1 Height 5 ft. 4 in. (162.56 cm); Pain 10/10; 23:05 Body Mass Index 41.20 (108.86 kg, 162.56 cm) lp1 Freeman Coma Score: 12 01:15 Eye Response: spontaneous(4). Verbal Response: oriented(5). Motor Response: obeys mh7 commands(6). Total: 15. MDM: 01:15 Differential diagnosis: cluster headache, migraine, tension headache. Data [facility]: [facility] vital [facility], nurses notes, lab test result(s), Covid negative. Data interpreted: Pulse oximetry: on room air is 100 %. Interpretation: normal. Counseling: I had a detailed discussion with the patient and/or guardian regarding: the historical points, exam findings, and any diagnostic results supporting the discharge/admit diagnosis, lab results, the need for outpatient follow up, to return to the emergency department if symptoms worsen or persist or if there are any questions or concerns that arise at home. Response to treatment: the patient's symptoms have resolved after treatment, the patient's blood pressure is in an acceptable range, mental status has returned to baseline, the patient no longer shows bradycardia, the patient is not short of breath, the patient is not tachycardic, the patient's pain is gone, the patient's temperature has normalized, the patient is now symptom free, patient is well hydrated. Refusal of service: The patient/guardian displays adequate decision making capability and despite a detailed discussion of alternatives, benefits, risks, and consequences refuses: CT Scan, all lab tests, Lumbar Puncture procedure. 01:17 Patient medically screened. [facility] 10/11 23:09 Order name: COVID-19 SARS RT PCR (Document "Date of Onset" if Symptomatic); Complete lp1 Time: 00:30 10/11 23:28 Order name: PO challenge; Complete Time: 23:55 [facility] Administered Medications: 10/11 23:36 Drug: Tylenol 1000 mg Route: PO; kd3 Disposition Summary: 10/12/21 01:17 Discharge Ordered Location: Home [facility] Problem: an acute exacerbation [facility] Symptoms: have improved [facility] Condition: Stable [facility] Diagnosis - Headache [facility] Followup: [facility] - With: Private Physician - When: 1 - 2 days - Reason: Worsening of condition, Recheck today's complaints, Continuance of care, Re-evaluation by your physician Discharge Instructions: - Discharge Summary Sheet [facility] - General Headache Without Cause [facility] Forms: - Medication Reconciliation Form 7 - Thank You Letter 7 - Antibiotic Education 7 - Work release form lp1 - Prescription Opioid Use [facility] Signatures: Dispatcher [employer] Yadi Randall RN RN lp1 Reyes Chambers MD MD 7 Deidre Vasquez RN RN kd3
[2021-10-12 01:33] VITALS: BP 127/79; TEMP 97.3; O2SAT 100
== END 2021-10-12 01:26 | disposition home or self-care (01) ==
LOC: ER 22:47
DX: R51.9 Headache, unspecified (principal); Z20.822 Contact with and (suspected) exposure to COVID-19
CPT/HCPCS: 99283; U0003

== ENCOUNTER 2023-02-13 13:34 | Inpatient (IN) | payer OTHER, SELFPAY ==
--- OUTSIDE RECORDS SUMMARY | 2023-02-13 13:44 | XMS REPORT | Continuity of Care Document ---
:1985 Author Organization [facility] t Address [address] [place] [address] Care Team Providers Name Role Phone Sheryl Wooten PA-C Attending Clinician Payers Payer Name Policy Type Policy Number Effective Date Expiration Date S ource Problems This patient has no known problems. Allergies, Adverse Reactions, Alerts This patient has no known allergies or adverse reactions. Social History Social Habit Start Date Stop Date Quantity Comments Source Alcohol intake [facility] Medical Branch History [facility] o [facility] Alcohol Std Drinks Medica l Branch History [facility] o [facility] Alcohol Binge Medical Bra [facility] Sex Assigned At [facility] Medical Branch History [facility] 2019-07-02 2019-07-02 1 [place] o [facility] Alcohol Frequency 00:00:00 00:00:00 Medical Branch Smoking Status Start Date Stop Date Source Never smoker [facility] Branch Medications Ordered Filled Start [...] as needed for Pain (scale 4-6). ibuprofen 2015-0 Yes 600mg Take 1 Unive rs (MOTRIN) [...] 20:30:00 137 mm[Hg] Univer sity of pressure [facility] Diastolic blood 2019-07-02 20:30:00 91 mm[Hg] Unive rsity of [facility] Heart rate 2019-07-02 20:30:00 90 /min [facility] Body temperature 2019-07-02 20:30:00 [facility].83 [facility] 2019-07-02 20:30:00 18 /min [facility] Body height 2019-07-02 20:30:00 162.6 cm [facility] Body weight 2019-07-02 20:30:00 155.13 kg [facility] BMI 2019-07-02 20:30:00 58.70 kg/m2 [facility] Procedures This patient has no known procedures. Encounters Start End Encounter Admission Attending Care Care Encounter Source Date/Time Date/Time Type Type Clinicians Facility Department ID 2019-07-08 2019-07-08 Case Je [facility] [id number] [facility] 00:00:00 00:00:00 Management Sheryl Keanu [id number] [id number] [phone] [place] [address] Branch Building 2019-07-02 2019-07-02 Office Je [place]DAVID [id number] [facility] 15:20:19 15:54:38 Visit Sheryl Colunga [id number] [id number] [id number] [address] Results This patient has no known results.
--- NOTE | 2023-02-13 14:09 | RAD REPORT ---
EXAM DESCRIPTION: CT - Ct Stroke Brain Wo Cont - 02/13/2023 1:59 pm CLINICAL HISTORY: STROKE ALERT Headache, CVA symptomology COMPARISON: Head Brain Wo Cont dated 08/09/2021; Head Brain Wo Cont dated 02/25/2021 TECHNIQUE: All CT scans are performed using dose optimization technique as appropriate and may inclu de automated exposure control or mA/KV adjustment according to patient size. FINDINGS: No intracranial hemorrhage, hydrocephalus or extra-axial fluid collection.No areas of brai n edema or evidence of midline shift. The paranasal sinuses and mastoids are clear. The calvarium is intact. IMPRESSION: No acute intracranial abnormality. If there is continued clinical concern for CVA, MR imaging of the brain would be recommended. The findings were discussed with Dr Limon in the ER on 02/13/2023 at 2:02 p.m. by telephone.
[2023-02-13 14:31] LABS: Absolute Lymphocytes (CBC) 1.4 K/uL (0.7-4.9); Hematocrit 26.1 % (36.0-45.0); MCV 70.2 fL (80-100); MPV 7.6 fL (7.6-11.3); RBC Red Blood Cell Count 3.72 M/uL (3.86-4.86)
[2023-02-13] MEDS ORDERED: TENECTEPLASE 50 MG/10 ML VIAL IV ONE (14:42)
[2023-02-13 14:44] LABS: BUN Blood Urea Nitrogen 6 mg/dL (7-18); Bicarbonate 25 mEq/L (21-32); Glomerular Filtration Rate 91 ml/min (=/>90); Glucose Level 80 mg/dL (74-106); Potassium 4.1 mEq/L (3.5-5.1); Sodium Level 140 mEq/L (136-145)
--- NOTE | 2023-02-13 14:45 | RAD REPORT ---
EXAM DESCRIPTION: CT - Head angio - 02/13/2023 2:27 pm CLINICAL HISTORY: Numbness;STROKE ALERT Headache, CVA symptomology COMPARISON: Ct Stroke Brain Wo Cont dated 02/13/2023; Head Brain Wo Cont dated 08/09/2021 TECHNIQUE: CT angiography of the head was performed with MIPs. All CT scans are performed using dose optimization technique as appropriate and may include automated exposure control or mA/KV adjustment according to patient size. FINDINGS: No evidence of large vessel occlusion. No evidence of aneurysm is detected. No flow-limiti ng stenosis or vascular malformation identified. Antegrade flow is seen in the vertebral arteries. The vertebral arteries are codominant. The visualized dural venous sinuses are patent. IMPRESSION: No significant flow abnormality is detected.
[2023-02-13 14:51] LABS: Troponin High Sensitivity < 3.0 pg/mL (<58.9)
--- NOTE | 2023-02-13 14:54 | ER ---
Nurse's Notes [facility] Name: Larry Morton Age: 37 yrs Sex: Female : 1985 Arrival Date: 02/13/2023 Time: 13:34 Bed 8 Private MD: Diagnosis: Acute Ischemic Stroke Presentation: 02/13 13:50 Chief complaint: Patient states: she was driving when she started feeling dizzy and ap3 that the left side of her body felt numb. patient states that the movement of her head makes her dizziness worse. patient also reports left arm and leg tingles. Coronavirus screen: At this time, the client does not indicate any symptoms associated with coronavirus-19. Ebola Screen: No symptoms or risks identified at this time. Initial Sepsis Screen: Does the patient meet any 2 criteria? No. Patient's initial sepsis screen is negative. Does the patient have a suspected source of infection? No. Patient's initial sepsis screen is negative. Risk Assessment: Do you want to hurt yourself or someone else? Patient reports no desire to harm self or others. Onset of symptoms was February 13, 2023 at 13:30. 13:50 Method Of Arrival: Ambulatory ap3 13:50 Acuity: CELESTINO 2 ap3 13:50 Care prior to arrival: Glucose check: 90. aa5 Triage Assessment: 14:02 General: Appears uncomfortable, Behavior is calm, cooperative. Pain: Denies pain. ap3 Neuro: Level of Consciousness is awake, alert, obeys commands, Oriented to person, place, time, situation, Reports dizziness, numbness in left arm and left leg tingling of her left arm and left leg. Respiratory: Airway is patent Respiratory effort is even, unlabored, Respiratory pattern is regular, symmetrical. Historical: - Allergies: 13:52 No Known Allergies; ap3 - Home Meds: 13:52 None [Active]; ap3 - PMHx: 13:52 None; ap3 - Immunization history:: Adult Immunizations up to date. - Social history:: Smoking status: Patient denies any tobacco usage or history of. Screenin:03 Abuse screen: Denies threats or abuse. Nutritional screening: No deficits noted. ap3 Tuberculosis screening: No symptoms or risk factors identified. 14:37 [facility] ED Fall Risk Assessment (Adult) History of falling in the last 3 months, ld1 including since admission No falls in past 3 months (0 pts). Assessment: 14:29 Reassessment: pt not in ER room 8 , remains in CT at this time. iw 14:35 Reassessment: Pt in CT at this time - Waiting on patient to return from CT. ld1 14:37 General: Appears in no apparent distress. comfortable, Behavior is cooperative, ld1 anxious. Pain: Denies pain. 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 Neuro: Cardiovascular: Capillary refill < 3 seconds Patient's skin is warm and dry. Rhythm is sinus rhythm. Respiratory: Airway is patent Respiratory effort is even, unlabored. GI: Abdomen is round non-distended. : No signs and/or symptoms were reported regarding the genitourinary system. EENT: No signs and/or symptoms were reported regarding the EENT system. Derm: No signs and/or symptoms reported regarding the dermatologic system. Musculoskeletal: No signs and/or symptoms reported regarding the musculoskeletal system. 17:00 Reassessment: Patient and/or family updated on plan of care and expected duration. Pain ld1 level reassessed. Pt reports vaginal bleeding - denies being on period. Denies pain. Notified ERP and Dr. Oneal. Sent H\T\H and type and screen. Waiting on urine specimen at this time. General: Appears in no apparent distress. comfortable, Behavior is calm, cooperative, appropriate for age. Pain: Denies pain. Neuro: Level of Consciousness is awake, alert, obeys commands, Oriented to person, place, time, situation. Respiratory: Airway is patent Respiratory effort is even, unlabored. Vital Signs: 13:50 BP 112 / 75; Pulse 65; Resp 17; Temp 98.3; ap3 13:50 Pulse Ox 100% ; Weight 88.45 kg; ap3 14:37 BP 115 / 75; Pulse 68; Resp 12; Pulse Ox 100% on R/A; ld1 14:39 Weight 84.82 kg; ld1 15:07 BP 107 / 75; Pulse 57; Resp 12; Pulse Ox 100% on R/A; ld1 15:51 BP 118 / 83; Pulse 65; Resp 18; Pulse Ox 100% on R/A; Pain 3/10; ld1 16:40 BP 118 / 80; Pulse 60; Resp 18; Pulse Ox 100% on R/A; ld1 17:01 BP 129 / 94; Pulse 61; Resp 18; Pulse Ox 100% on R/A; ld1 15:51 Pain Scale: Adult ld1 NIH Stroke Scale Scores: 13:50 NIHSS Score: 2 7 14:37 NIHSS Score: 1 ld1 ED Course: 13:35 Patient arrived in ED. mr 13:46 [facility] jh7 13:46 Alex Olson DO is Attending Physician. jh7 13:52 Triage completed. ap3 14:00 CT Stroke Brain w/o Contrast In Process Unspecified. EDMS 14:03 Arm band placed on left wrist. ap3 14:17 Initial lab(s) drawn, by hi, sent to lab. Inserted saline lock: 22 gauge in right tm3 antecubital area, using aseptic technique. 14:[address] In Process Unspecified. EDMS 14:29 Neck Angio In Process Unspecified. EDMS 14:37 Stroke CXR 1 View In Process Unspecified. EDMS 14:37 Patient has correct armband on for positive identification. Placed in gown. Bed in low ld1 position. Call light in reach. Side rails up X2. desk monitor on. Pulse ox on. NIBP on. Door closed. Noise minimized. Warm blanket given. 14:37 No provider procedures requiring assistance completed. ld1 14:51 Desirae Olson, RN is Primary Nurse. ld1 14:53 Marlon Oneal MD is Hospitalizing Provider. jh7 16:38 Brain Wo Cont In Process Unspecified. EDMS 17:48 Patient admitted, IV remains in place. ld1 Administered Medications: 14:42 Drug: TNK FOR STROKE - Tenecteplase IV 0.25 mg/kg {Co-Signature: iw (Pieter, ld1 Lavern GUEVARA).} Route: IV; Rate: per protocol; Site: right antecubital; Medication: 17:48 VIS not applicable for this client. ld1 Outcome: 14:53 Decision to Hospitalize by Provider. jh7 17:47 Admitted to ICU accompanied by nurse, via wheelchair, room 1, Report called to ld1 Svetlana guevara 17:47 Condition: stable 17:47 Instructed on the need for admit. 17:48 Patient left the ED. ld1 NIH Stroke Scale - NIH Stroke Score Date: 02/13/2023 Time: 13:50 Total Score = 2 10. Dysarthria (speech clarity - read or repeat words) - 0(Normal) 11. Extinction and Inattention (visual/tactile/auditory/spatial/personal) - 1(Present) 1a. Level of Consciousness (LOC) - 0(Alert) 1b. Level of Consciousness (LOC) (Month \T\ Age) - 0(Both) 1c. LOC Commands (Open \T\ Closes Eyes/Supervisor Specialty Plant) - 0(Both) 2. Best Gaze (Lateral Gaze Paresis) - 0(Normal) 3. Visual Field Loss - 0(No visual loss) 4. Facial Palsy - 0(Normal) 5a. Left Arm: Motor (10-second hold) - 0(No drift) 5b. Right Arm: Motor (10-second hold) - 0(No drift) 6a. Left Leg: Motor (5-second hold - always test supine) - 0(No drift) 6b. Right Leg: Motor (5-second hold - always test supine) - 0(No drift) 7. Limb Ataxia (finger/nose \T\ heel/terry - test with eyes open) - 0(Absent) 8. Sensory Loss (pinprick arms/legs/face) - 1(Mild to moderate loss) 9. Best Language: Aphasia (description/naming/reading) - 0(No aphasia) Initials: [facility] NIH Stroke Scale - NIH Stroke Score Date: 02/13/2023 Time: 14:37 Total Score = 1 10. Dysarthria (speech clarity - read or repeat words) - 0(Normal) 11. Extinction and Inattention (visual/tactile/auditory/spatial/personal) - 0(No abnormality) 1a. Level of Consciousness (LOC) - 0(Alert) 1b. Level of Consciousness (LOC) (Month \T\ Age) - 0(Both) 1c. LOC Commands (Open \T\ Closes Eyes/Supervisor Specialty Plant) - 0(Both) 2. Best Gaze (Lateral Gaze Paresis) - 0(Normal) 3. Visual Field Loss - 0(No visual loss) 4. Facial Palsy - 0(Normal) 5a. Left Arm: Motor (10-second hold) - 0(No drift) 5b. Right Arm: Motor (10-second hold) - 0(No drift) 6a. Left Leg: Motor (5-second hold - always test supine) - 0(No drift) 6b. Right Leg: Motor (5-second hold - always test supine) - 0(No drift) 7. Limb Ataxia (finger/nose \T\ heel/terry - test with eyes open) - 0(Absent) 8. Sensory Loss (pinprick arms/legs/face) - 1(Mild to moderate loss) 9. Best Language: Aphasia (description/naming/reading) - 0(No aphasia) Initials: ld1 Signatures: Dispatcher [employer] EDMS AshleyAlexandre laguna Mary mr Lavern Stapleton, ISMAEL GUEVARA iw Lacie Olivo RN RN aa5 Sydnie Cotton RN RN ap3 Desirae Olson RN RN ld1 Gayatri Moffett FNP CLIENT APPLICATION SUPPORT SPECIALIST 7 Lavern Stapleton RN iw Corrections: (The following items were deleted from the chart) 13:53 13:52 PSHx: Gastric Bypass; ap3 ap3
--- NOTE | 2023-02-13 14:54 | EDPHYS ---
Physician Documentation [facility] Name: Larry Morton Age: 37 yrs Sex: Female : 1985 Arrival Date: 02/13/2023 Time: 13:34 Bed 8 Private MD: ED Physician Alex Olson HPI: 02/13 13:45 This 37 yrs old Black Female presents to ER via Ambulatory with complaints of Left side jh7 numbness/tingling, Dizziness. 13:45 The patient presents with dizziness, feeling off balance. Onset: The symptoms/episode jh7 began/occurred at 13:15. Context: occurred in the car, occurred while the patient was driving. Associated signs and symptoms: Pertinent positives: numbness, tingling, photophobia. 37-year-old female presents to the ER with sudden onset dizziness, unsteady gait, and left-sided numbness/tingling. Also reports nausea. Reports the dizziness is exacerbated by head movements. Denies any past medical history. Denies chest pain, shortness of breath, and headache.. Historical: - Allergies: 13:52 No Known Allergies; ap3 - Home Meds: 13:52 None [Active]; ap3 - PMHx: 13:52 None; ap3 - Immunization history:: Adult Immunizations up to date. - Social history:: Smoking status: Patient denies any tobacco usage or history of. ROS: 13:45 Constitutional: Negative for fever, chills, and weight loss, Eyes: Negative for injury, jh7 pain, redness, and discharge, Neck: Negative for injury, pain, and swelling, Cardiovascular: Negative for chest pain, palpitations, and edema, Respiratory: Negative for shortness of breath, cough, wheezing, and pleuritic chest pain, Abdomen/GI: Negative for abdominal pain, nausea, vomiting, diarrhea, and constipation, Back: Negative for injury and pain, MS/Extremity: Negative for injury and deformity, Skin: Negative for injury, rash, and discoloration. 13:45 Neuro: Positive for dizziness, gait disturbance, numbness, tingling, photophobia. 13:45 All other systems are negative. Exam: 13:45 Constitutional: This is a well developed, well nourished patient who is awake, alert, jh7 and in no acute distress. Head/Face: Normocephalic, atraumatic. 13:45 Eyes: Pupils equal round and reactive to light, extra-ocular motions intact. Lids and lashes normal. Conjunctiva and sclera are non-icteric and not injected. Cornea within normal limits. Periorbital areas with no swelling, redness, or edema. ENT: Nares patent. No nasal discharge, no septal abnormalities noted. Tympanic membranes are normal and external auditory canals are clear. Oropharynx with no redness, swelling, or masses, exudates, or evidence of obstruction, uvula midline. Mucous membranes moist. Neck: Trachea midline, no thyromegaly or masses palpated, and no cervical lymphadenopathy. Supple, full range of motion without nuchal rigidity, or vertebral point tenderness. No Meningismus. Cardiovascular: Regular rate and rhythm with a normal S1 and S2. No gallops, murmurs, or rubs. Normal PMI, no JVD. No pulse deficits. Respiratory: Lungs have equal breath sounds bilaterally, clear to auscultation and percussion. No rales, rhonchi or wheezes noted. No increased work of breathing, no retractions or nasal flaring. Abdomen/GI: Soft, non-tender, with normal bowel sounds. No distension or tympany. No guarding or rebound. No evidence of tenderness throughout. Back: No spinal tenderness. No costovertebral tenderness. Full range of motion. Skin: Warm, dry with normal turgor. Normal color with no rashes, no lesions, and no evidence of cellulitis. 13:45 Musculoskeletal/extremity: ROM: full active range of motion, Circulation is intact in all extremities. the left leg and left arm numbness, decreased sensation. 13:45 Neuro: Orientation: is normal, Mentation: is normal, Memory: is normal, Cranial nerves: grossly normal, Cerebellar function: is grossly normal, Motor: is normal, Sensation: numbness, that is moderate, of the left leg and left arm, tingling, that is mild, of the left arm and left leg, Gait: is unsteady. Vital Signs: 13:50 BP 112 / 75; Pulse 65; Resp 17; Temp 98.3; ap3 13:50 Pulse Ox 100% ; Weight 88.45 kg; ap3 14:37 BP 115 / 75; Pulse 68; Resp 12; Pulse Ox 100% on R/A; ld1 14:39 Weight 84.82 kg; ld1 15:07 BP 107 / 75; Pulse 57; Resp 12; Pulse Ox 100% on R/A; ld1 15:51 BP 118 / 83; Pulse 65; Resp 18; Pulse Ox 100% on R/A; Pain 3/10; ld1 16:40 BP 118 / 80; Pulse 60; Resp 18; Pulse Ox 100% on R/A; ld1 17:01 BP 129 / 94; Pulse 61; Resp 18; Pulse Ox 100% on R/A; ld1 15:51 Pain Scale: Adult ld1 NIH Stroke Scale Scores: 13:50 NIHSS Score: 2 [facility] 14:37 NIHSS Score: 1 1 MDM: 13:46 Patient medically screened. [facility] 14:08 Management of patient was discussed with the following: Poolroom Table Attendant: Dr. Ruiz, [facility] neurology. Dr. Ruiz advised TNK due to sudden onset dizziness and gait disturbance within the window. Also advised ICU admission Plavix, and aspirin.. 14:50 Differential diagnosis: CVA, vertigo, hypoglycemia. Data reviewed: vital signs, nurses [facility] notes, lab test result(s), EKG, radiologic studies, CT scan, plain films. Consideration of Admission/Observation Patient was admitted/placed on observation. I considered the following discharge prescriptions or medication management in the emergency department Medications were administered in the Emergency Department. See MAR. Independent interpretation of the following test(s) in the Emergency Department EKG: See my EKG interpretation above. Counseling: I had a detailed discussion with the patient and/or guardian regarding: the historical points, exam findings, and any diagnostic results supporting the discharge/admit diagnosis, the need for further work-up and treatment in the hospital. Response to treatment: the patient's symptoms have mildly improved after treatment. 02/13 13:54 Order name: Basic Metabolic Panel; Complete Time: 14:54 [facility] 02/13 13:54 Order name: CBC with Diff; Complete Time: 16:49 [facility] 02/13 13:54 Order name: High Sensitivity Troponin; Complete Time: 14:54 [facility] 02/13 13:54 Order name: Protime (+inr); Complete Time: 16:49 [facility] 02/13 13:54 Order name: Ptt, Activated; Complete Time: 16:49 [facility] 02/13 14:44 Order name: CBC Smear Scan; Complete Time: 16:[address] [facility] 02/13 14:59 Order name: Glucose, Ancillary Testing; Complete Time: 16:49 [facility] 02/13 15:43 Order name: TSH [facility] 02/13 15:43 Order name: Lipid Profile [facility] 02/13 15:43 Order name: Hemoglobin A1c [facility] 02/13 16:48 Order name: Urinalysis w/ reflexes; Complete Time: 18:25 [facility] 02/13 16:48 Order name: Type And Screen [facility] 02/13 16:48 Order name: Hemoglobin; Complete Time: 18:25 [facility] 02/13 16:48 Order name: Hematocrit; Complete Time: 18:25 [facility] 02/13 17:04 Order name: HCG, Quantitative [facility] 02/13 17:10 Order name: Magnesium [facility] 02/13 17:10 Order name: Phosphorus [facility] 02/13 17:10 Order name: T4 Free [facility] 02/13 17:10 Order name: Thyroid Stimulating Hormone [facility] 02/13 17:10 Order name: Urinalysis w/ reflexes [facility] 02/13 17:10 Order name: Basic Metabolic Panel [facility] 02/13 17:10 Order name: Basic Metabolic Panel [facility] 02/13 17:10 Order name: CBC with Automated Diff [facility] 02/13 17:10 Order name: CBC with Automated Diff [facility] 02/13 13:54 Order name: CT Stroke Brain w/o Contrast; Complete Time: 14:50 [facility] 02/13 13:54 Order name: Stroke CXR 1 View; Complete Time: 16:49 [facility] 02/13 14:06 Order name: Head Angio CT; Complete Time: 14:50 [facility] 02/13 14:26 Order name: Neck Angio; Complete Time: 16:49 [facility] 02/13 16:14 Order name: Brain Wo Cont; Complete Time: 16:49 [facility] 02/13 17:04 Order name: Abdomen Exam Complete [facility] 02/13 17:08 Order name: Echo with Doppler [facility] 02/13 17:08 Order name: Echo with Doppler [facility] 02/13 13:54 Order name: EKG; Complete Time: 13:55 [facility] 02/13 17:10 Order name: CONS Physician Consult [facility] 02/13 17:10 Order name: Regular [facility] 02/13 13:54 Order name: Accucheck; Complete Time: 14:47 [facility] 02/13 13:54 Order name: Cardiac monitoring; Complete Time: 14:47 [facility] 02/13 13:54 Order name: EKG - Nurse/Tech; Complete Time: 15:07 [facility] 02/13 13:54 Order name: IV Saline Lock; Complete Time: 14:47 [facility] 02/13 13:54 Order name: Labs collected and sent; Complete Time: 14:47 [facility] 02/13 13:54 Order name: NPO; Complete Time: 14:30 [facility] 02/13 13:54 Order name: O2 Per Protocol; Complete Time: 14:30 [facility] 02/13 13:54 Order name: O2 Sat Monitoring; Complete Time: 14:30 [facility] 02/13 13:54 Order name: Stroke Swallow Screen; Complete Time: 14:30 EC:45 Rate is 56 beats/min. Rhythm is irregular. QRS [place] is Normal. DC interval is normal at [facility] 136 msec. QRS interval is normal at 70 msec. QT interval is normal at 406 msec. No Q waves. T waves are Normal. No ST changes noted. Clinical impression: Sinus bradycardia with marked sinus arrhythmia. Administered Medications: 14:42 Drug: TNK FOR STROKE - Tenecteplase IV 0.25 mg/kg {Co-Signature: taye (Pieter, aman1 Lavern GUEVARA).} Route: IV; Rate: per protocol; Site: right antecubital; Disposition: 14:42 PA/SPLINE ROLLING MACHINE JOB SETTER's history reviewed, patient interviewed, and examined. HPI: 37-year-old female ms3 with no past medical history presents for sudden onset dizziness that began 20 minutes prior to arrival in the emergency department. Patient denies headache. Patient denies taking oral contraceptives. Patient denies family history of CVA. My personal exam of patient reveals: On exam patient is alert, in no apparent distress, nontoxic-appearing. Heart rate and rhythm are regular without murmurs rubs or gallops. Lungs are clear to auscultation bilaterally. Skin is dry and without rashes. Abdomen nontender palpation with bowel sounds present. 14:59 Co-signature as Attending Physician, Alex Olson DO. ms3 Disposition Summary: 02/13/23 14:53 Hospitalization Ordered Hospitalization Status: Inpatient Admission [facility] Provider: Marlon Oneal [facility] Location: Intensive Care Unit [facility] Condition: Stable [facility] Problem: new [facility] Symptoms: are unchanged [facility] Bed/Room Type: Standard [facility] Room Assignment: 1-(02/13/23 17:15) dw Diagnosis - Acute Ischemic Stroke [facility] Forms: - Medication Reconciliation Form [facility] - SBAR form [facility] NIH Stroke Scale - NIH Stroke Score Date: 02/13/2023 Time: 13:50 Total Score = 2 10. Dysarthria (speech clarity - read or repeat words) - 0(Normal) 11. Extinction and Inattention (visual/tactile/auditory/spatial/personal) - 1(Present) 1a. Level of Consciousness (LOC) - 0(Alert) 1b. Level of Consciousness (LOC) (Month \T\ Age) - 0(Both) 1c. LOC Commands (Open \T\ Closes Eyes/Medical Laboratory Technician) - 0(Both) 2. Best Gaze (Lateral Gaze Paresis) - 0(Normal) 3. Visual Field Loss - 0(No visual loss) 4. Facial Palsy - 0(Normal) 5a. Left Arm: Motor (10-second hold) - 0(No drift) 5b. Right Arm: Motor (10-second hold) - 0(No drift) 6a. Left Leg: Motor (5-second hold - always test supine) - 0(No drift) 6b. Right Leg: Motor (5-second hold - always test supine) - 0(No drift) 7. Limb Ataxia (finger/nose \T\ heel/terry - test with eyes open) - 0(Absent) 8. Sensory Loss (pinprick arms/legs/face) - 1(Mild to moderate loss) 9. Best Language: Aphasia (description/naming/reading) - 0(No aphasia) Initials: [facility] NIH Stroke Scale - NIH Stroke Score Date: 02/13/2023 Time: 14:37 Total Score = 1 10. Dysarthria (speech clarity - read or repeat words) - 0(Normal) 11. Extinction and Inattention (visual/tactile/auditory/spatial/personal) - 0(No abnormality) 1a. Level of Consciousness (LOC) - 0(Alert) 1b. Level of Consciousness (LOC) (Month \T\ Age) - 0(Both) 1c. LOC Commands (Open \T\ Closes Eyes/Medical Laboratory Technician) - 0(Both) 2. Best Gaze (Lateral Gaze Paresis) - 0(Normal) 3. Visual Field Loss - 0(No visual loss) 4. Facial Palsy - 0(Normal) 5a. Left Arm: Motor (10-second hold) - 0(No drift) 5b. Right Arm: Motor (10-second hold) - 0(No drift) 6a. Left Leg: Motor (5-second hold - always test supine) - 0(No drift) 6b. Right Leg: Motor (5-second hold - always test supine) - 0(No drift) 7. Limb Ataxia (finger/nose \T\ heel/terry - test with eyes open) - 0(Absent) 8. Sensory Loss (pinprick arms/legs/face) - 1(Mild to moderate loss) 9. Best Language: Aphasia (description/naming/reading) - 0(No aphasia) Initials: ld1 Signatures: Dispatcher [employer] EDChristin Barragan RN RN dw Prokisch, Amanda, RN RN ap3 Alex Olson, DO ms3 Desirae Olson RN RN ld1 Gayatri Moffett, ENTERTAINMENT USHER ENTERTAINMENT USHER 7 Lavern Stapleton RN iw Corrections: (The following items were deleted from the chart) 13:53 13:52 PSHx: Gastric Bypass; ap3 ap3 16:14 14:50 MR STROKE PROTOCOL+MRI.OLIVRE.KIRA ordered. EDKS EDMS 17:15 14:53 [facility] edna
--- NOTE | 2023-02-13 14:57 | RAD REPORT ---
EXAM DESCRIPTION: CT - Neck Angio - 02/13/2023 2:27 pm CLINICAL HISTORY: STROKE, LT SIDE NUMB CVA symptomology COMPARISON: No comparisons TECHNIQUE: CT angiography of the neck vessels was performed with MIPs. All CT scans are performed using dose optimization technique as appropriate and may include automated exposure control or mA/KV adjustment according to patient size. FINDINGS: A left aortic arch is identified with normal three vessel configuration of the great vesse ls. No significant flow abnormality is seen of the common carotid bilaterally. A small amount of soft plaque may be present left carotid bulb. No significant carotid stenosis seen. No evidence of dissection. Normal flow is seen within both vertebral arteries. IMPRESSION: No significant flow abnormality of the neck vessels is identified. Small amount of soft plaque suspected left carotid bulb.
[2023-02-13 15:03] LABS: Protime INR 0.78
--- NOTE | 2023-02-13 15:05 | RAD REPORT ---
EXAM DESCRIPTION: RAD - Chest Single View - 02/13/2023 2:37 pm CLINICAL HISTORY: MALAISE Chest pain. COMPARISON: Chest Single View dated 08/09/2021; Chest Single View dated 02/25/2021; Chest Single View dated 08/27/2020; Chest Single View dated 08/24/2020 FINDINGS: Portable technique limits examination quality. The lungs are grossly clear. The heart is normal in size. No displaced fractures. IMPRESSION: No acute intrathoracic process suspected.
[2023-02-13 15:55] LABS: Blood Morphology Comment NOTED (NOT SEEN); Platelet Estimate ADEQ; White Blood Cell Scan OK (OK)
[2023-02-13 15:56] LABS: Hypochromasia 1+; Poikilocytosis SLIGHT; Target Cells FEW
--- NOTE | 2023-02-13 16:45 | RAD REPORT ---
EXAM DESCRIPTION: MRI - Brain Wo Cont - 02/13/2023 4:37 pm CLINICAL HISTORY: STROKE ALERT Headache, drowsiness, CVA symptomology COMPARISON: Head angio dated 02/13/2023 TECHNIQUE: Multi-sequence, multiplanar MR imaging of the brain was performed without contrast. FINDINGS: No intracranial hemorrhage, hydrocephalus or extra-axial fluid collections. No edema or sh ift of midline structures. No findings to suspect brain mass. DWI is negative for acute CVA. Blooming artifact anteriorly limits quality of the diffusion-weighted imaging. Midline structures are normally formed. Mastoid air cells and paranasal sinuses are clear. IMPRESSION: No acute CVA or other acute intracranial process suspected.
[2023-02-13] MEDS ORDERED: ACETAMINOPHEN 325 MG TABLET PO PRN (17:05)
[2023-02-13] MEDS ORDERED: ONDANSETRON 4 MG/2 ML VIAL IV PRN (17:08)
--- NOTE | 2023-02-13 17:12 | P.HP ---
Certification for Inpatient Patient admitted to: Inpatient With expected LOS: >2 Midnights Patient will require the following post-hospital care: None Practitioner: I am a practitioner with admitting privileges, knowledge of patient current condition, hospital course, and medical plan of care. Services: Services provided to patient in accordance with Admission requirements found in Title 42 Section 412.3 of the Code of Federal Regulations Patient History Date of Service: 02/13/23 Reason for admission: Left-sided numbness and dizziness History of Present Illness: Patient is a 37-year-old female with no known past medical history who presents with complaint of sudden onset of left-sided numbness and dizziness onset 20 minutes before patient came to the ER. Patient reported associated signs and symptoms of poor gait. Patient denies any other signs and symptoms. Symptoms are aggravated or relieved by nothing. Patient decided to present to the hospital for medical evaluation. Allergies No Known Allergies Allergy (Verified 02/13/23 18:20) Home Medications: NK [No Home Meds] 02/13/23 - Past Medical/Surgical History Diabetic: No -: covid -: delivery -: gastric bypass - Family History Mother -: Hypertension - Social History Smoking Status: Never smoker Alcohol use: No CD- Drugs: No Caffeine use: Yes Place of Residence: Home Review of Systems General: Unremarkable Eyes: Unremarkable ENT: Unremarkable Respiratory: Unremarkable Cardiovascular: Unremarkable Gastrointestinal: Other (Vaginal bleeding) Genitourinary: Unremarkable Musculoskeletal: Unremarkable Integumentary: Unremarkable Neurological: Numbness, Other (Poor gait, dizziness) Physical Examination - Physical Exam General: Alert, In no apparent distress, Oriented x3, Cooperative HEENT: Atraumatic, PERRLA, Mucous membr. moist/pink, EOMI, Sclerae nonicteric Neck: Supple, 2+ carotid pulse no bruit, No LAD, Without JVD or thyroid abnormality Respiratory: Clear to auscultation bilaterally, Normal air movement Cardiovascular: No edema, Regular rate/rhythm, Normal S1 S2 Capillary refill: <2 Seconds Gastrointestinal: Normal bowel sounds, Soft and benign, No tenderness Musculoskeletal: No clubbing, No swelling, No tenderness Integumentary: No rashes, No breakdown Neurological: Normal speech, Normal strength at 5/5 x4 extr, Normal tone, Normal affect, Abnormal gait Lymphatics: No axilla or inguinal lymphadenopathy - Studies Laboratory Data (last 24 hrs) 02/13/23 14:10: PT 9.4, INR 0.78, APTT 29.1 02/13/23 14:10: WBC 3.70 L, Hgb 7.9 L, Hct 26.1 L, Plt Count 264 02/13/23 14:10: Sodium 140, Potassium 4.1, BUN 6 L, Creatinine 0.85, Glucose 80 Assessment and Plan - Plan --TIA. CTA head\neck, CT brain and MRI brain unremarkable for any acute findings. Neurology consulted. Patient had TNK infusion in the ER. Patient was admitted to ICU for close monitoring. Echocardiogram pending to rule out any cardioembolic source of patient's presenting symptoms. Further management per neurologist. -- Vaginal bleeding. Status post TNK infusion. Pelvic ultrasound and abdominal ultrasound unremarkable for any acute finding. Will trend H&H. Continue supportive care. --Blood loss anemia. Secondary to vaginal bleeding. We will continue to trend H&H and transfuse if hemoglobin less than 7.0. --CKD 2. Baseline functions unknown. We will continue to monitor renal functions. -- Abnormality of gait and mobility. Likely secondary to TIA. PT eval and treat. Continue supportive care. --DVT prophylaxis with SCDs. Discharge Plan: Home Plan to discharge in: Greater than 2 days - Advance Directives Does patient have a Living Will: No Does patient have a Durable POA for Healthcare: No - Code Status/Comfort Care Code Status Assessed: Yes Physician Review: Patient Assessed, Agree with Above Assessment and Plan Critical Care: Yes
[2023-02-13 17:16] LABS: Hematocrit 26.1 % (36.0-45.0)
[2023-02-13 18:01] LABS: Specific Gravity > 1.030 (1.005-1.030); Urine Bacteria None Seen /HPF (<20); Urine Bilirubin NEGATIVE (Negative); Urine Blood 3+ (OVER) (Negative); Urine Clarity Clear (Clear); Urine Color Colorless (Yellow); Urine Crystals Unidentified Few /HPF (None Seen); Urine Glucose NEGATIVE (Negative); Urine Protein NEGATIVE (Negative); Urine Urobilinogen Normal (Normal); Urine pH 6.5 (5.0-7.0)
[2023-02-13 18:20] LABS: Magnesium 2.3 mg/dL (1.6-2.4); Phosphorus 3.7 mg/dL (2.5-4.9)
[2023-02-13 18:29] LABS: HCG, Quantitative < 1 mIU/mL (1-3)
--- NOTE | 2023-02-13 18:48 | RAD REPORT ---
EXAM DESCRIPTION: US - Abdomen Exam Complete - 02/13/2023 6:32 pm CLINICAL HISTORY: Abdominal pain. Vaginal Bleeding s/p TNK COMPARISON: ABDOMINAL EXAM LIMITED dated 12/10/2013 FINDINGS: The liver is normal in size, shape and echotexture. No focal liver lesions or intrahepatic biliary dilatation is seen. The gallbladder demonstrates no gallstones, pericholecystic fluid or gallbladder wall thickening. Co mmon bile duct is normal in caliber measuring 3 mm. Both kidneys are normal in size, shape and echotexture. No hydronephrosis, focal lesion of concern or perinephric fluid. The spleen is normal in size measuring 9 cm. The pancreas and aorta are obscured by bowel gas. The visualized aspects of the IVC are grossly normal. IMPRESSION: Unremarkable study except for limited assessment of the pancreas and aorta due to bowel gas.
[2023-02-13 18:50] VITALS: BMI 29.0
[2023-02-13 18:53] LABS: Thyroid Stimulating Hormone 1.82 uIU/mL (0.358-3.740)
--- NOTE | 2023-02-13 18:55 | RAD REPORT ---
EXAM DESCRIPTION: US - Pelvis Complete - 02/13/2023 6:32 pm CLINICAL HISTORY: vaginal bleeding Pelvic pain. COMPARISON: No comparisons FINDINGS: The uterus is normal in size, shape and echotexture. The uterus measures 12.6 x 6.7 x 4.4 cm. The endometrial stripe measures 4 mm, normal. Both ovaries are normal in size, shape and echotexture. The right ovary measures 3.1 x 3.2 x 2.1 cm. The left ovary measures 3.1 x 3.0 x 2.3 cm. No ovarian or parovarian lesions. No adnexal masses. Normal Doppler blood flow was demonstrated to both ovaries. No significant pelvic ascites. IMPRESSION: Unremarkable study.
[2023-02-13 20:20] LABS: Hematocrit 25.6 % (36.0-45.0)
[2023-02-14 00:24] LABS: Hematocrit 23.4 % (36.0-45.0)
[2023-02-14 05:02] LABS: Absolute Lymphocytes (CBC) 2.1 K/uL (0.7-4.9); Hematocrit 23.6 % (36.0-45.0); Lymphocytes % 39.2 % (15.3-44.8); MCV 69.2 fL (80-100); MPV 7.8 fL (7.6-11.3); RBC Red Blood Cell Count 3.41 M/uL (3.86-4.86)
[2023-02-14 05:16] LABS: Potassium 3.8 mEq/L (3.5-5.1)
[2023-02-14 07:39] LABS: Magnesium 2.2 mg/dL (1.6-2.4)
--- NOTE | 2023-02-14 07:59 | RAD REPORT ---
EXAM DESCRIPTION: CT - Chest Abd Pelvis Wo Con - 02/14/2023 7:26 am CLINICAL HISTORY: Chest and abdominal pain COMPARISON: 2020 TECHNIQUE: Computed axial tomography of the chest, abdomen and pelvis was obtained. Oral contrast wa s given. IV contrast was not requested. All CT scans are performed using dose optimization technique as appropriate and may include automated exposure control or mA/KV adjustment according to patient size. FINDINGS: The evaluation of mediastinum, flor, vessels and solid organs is limited secondary to the lack of IV contrast administration The lungs are clear No mediastinal or hilar lymphadenopathy is seen. A pleural effusion is not present. A pericardial effusion is not seen. The liver, spleen, pancreas, and adrenals appear grossly normal Tiny bilateral nonobstructing renal calculi There is no evidence of diverticulitis. Postsurgical changes stomach. Tampon within the vagina No abdominal/pelvic bleed IMPRESSION: No acute abnormality is displayed
[2023-02-14] MEDS ORDERED: POTASSIUM CL SA 10 MEQ TAB PO ONE (09:20)
--- NOTE | 2023-02-14 12:45 | P.PN ---
Subjective Date of Service: 02/14/23 Chief Complaint: Left-sided numbness and dizziness She is s/p tenecteplase on 02/13/2023 @ 14:42. Following the tenecteplase, she has developed significant vaginal bleeding. It is unclear if this is secondary to her menstrual cycle; although, she reports having a shorter menstrual cycle last week, which only lasted for 3 days. Her bleeding has slowed down today, but her hemoglobin has down-trended to 7.1. Review of Systems 10-point ROS is otherwise unremarkable Genitourinary: Other (menorrhagia) Physical Examination - Vital Signs Temperature: 97.6 F Blood Pressure: 108/67 Pulse: 66 Respirations: 18 Pulse Ox (%): 100 - Physical Exam General: Alert, In no apparent distress, Oriented x3 HEENT: Atraumatic, Mucous membr. moist/pink, Sclerae nonicteric Neck: JVD not distended Respiratory: Clear to auscultation bilaterally, Normal air movement Cardiovascular: No edema, Regular rate/rhythm, Normal S1 S2, No gallops, No rub s, No murmurs Gastrointestinal: Normal bowel sounds, Soft and benign, Non-distended, No tenderness, No rebound, No guarding Musculoskeletal: No clubbing Integumentary: No rashes Neurological: Normal speech, Normal strength at 5/5 x4 extr, Normal tone, Sensation intact, Cranial nerves 3-12 intact, Normal reflexes 2+, Normal affect - Studies Laboratory Data (last 24 hrs) 02/13/23 16:56: Hgb 8.4 L, Hct 26.1 L 02/13/23 14:10: PT 9.4, INR 0.78, APTT 29.1 02/13/23 14:10: WBC 3.70 L, Hgb 7.9 L, Hct 26.1 L, Plt Count 264 02/13/23 14:10: Sodium 140, Potassium 4.1, BUN 6 L, Creatinine 0.85, Glucose 80 02/13/23 13:28: Triglycerides 95, Cholesterol 130, HDL Cholesterol 66 H, Cholesterol/HDL Ratio 1.97 Assessment And Plan - Plan NIH Stroke Scale 1a. Level of consciousness: 0 - Alert; keenly responsive 1b. LOC questions: 0 - Both questions right 1c. LOC commands: 0 - Performs both tasks 2. Best Gaze: 0 - Normal 3. Visual: 0 - No visual loss 4. Facial Palsy: 0 - Normal symmetry 5a. Motor left arm: 0 - No drift for 10 seconds 5b. Motor right arm: 0 - No drift for 10 seconds 6a. Motor left le - No drift for 5 seconds 6b. Motor right le - No drift for 5 seconds 7. Limb ataxia: 0 - No ataxia 8. Sensory: 0 - Normal; no sensory loss 9. Best Language: 0 - Normal; no aphasia 10. Dysarthria: 0 - Normal 11. Extinction and Inattention: 0 - No abnormality 12. Distal motor function: 0 - No abnormality Total Score: 0 # Left-Sided Sensory Deficits with concern for Transient Ischemic Attack s/p Tenecteplase - Consulted Neurology and spoke with Dr. Ruiz - recommendations appreciated - Plan for repeat post-tenecteplase CT head at 16:00 to confirm no intracranial bleeding - No neurologic deficits on my exam - NIHSS = 0 - q4hr neurochecks - Radiology: - CT head = "no acute intracranial abnormality." - CT head angiogram = "no significant flow abnormality is detected." - CT neck angiogram = "no significant flow abnormality of the neck vessels is identified. Small amount of soft plaque suspected left carotid bulb." - MRI brain = "no acute CVA or other acute intracranial process suspected." - Transthoracic echocardiogram = "1. trace of mitral and tricuspid regurgitation 2. normal left ventricular size and function. 3. 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
--- NOTE | 2023-02-14 12:49 | ECHO ---
HEIGHT: 5 ft 4 in WEIGHT: 168 lb 12.8 oz DATE OF STUDY: 02/14/[address]: Semaj Garcia 2-DIMENSIONAL: YES M.MODE: YES DOPPLER: YES COLOR FLOW: YES TDS: NO PORTABLE: NO DEFINITY: NO BUBBLE STUDY: NO DIAGNOSIS: WEAKNESS CARDIAC HISTORY: CATHERIZATION: NO SURGERY: NO PROSTHETIC VALVE: NO PACEMAKER: NO MEASUREMENTS (cm) DIASTOLIC (NORMALS) SYSTOLIC (NORMALS) IVSd 0.8 (0.6-1.2) LA Diam 3.6 (1.9-4.0) LVEF 54% LVIDd 3.8 (3.5-5.7) LVIDs 2.7 (2.0-3.5) %FS 28% LVPWd 1.1 (0.6-1.2) Ao Diam 2.0 (2.0-3.7) 2 DIMENSIONAL ASSESSMENT: RIGHT ATRIUM: NORMAL LEFT ATRIUM: NORMAL RIGHT VENTRICLE: NORMAL LEFT VENTRICLE: NORMAL TRICUSPID VALVE: NORMAL MITRAL VALVE: NORMAL PULMONIC VALVE: NORMAL AORTIC VALVE: NORMAL PERICARDIAL EFFUSION: NONE AORTIC ROOT: NORMAL LEFT VENTRICULAR WALL MOTION: NORMAL. DOPPLER/COLOR FLOW: TRACE OF MITRAL AND TRICUSPID REGURGITATION. COMMENTS: 1. TRACE OF MITRAL AND TRICUSPID REGURGITATION 2. NORMAL LEFT VENTRICULAR SIZE AND FUNCTION. 3. NO EFFUSION. TECHNOLOGIST: KEENAN ZAMAN
[2023-02-14] MEDS ORDERED: ACETAMINOPHEN 325 MG TABLET PO PRN (12:58)
[2023-02-14] MEDS: SOD FERRIC GLUC COMPLX/SUCROSE 125 MG in NA CHLORIDE 0.9% 100 ML IV SCH (13:22)
[2023-02-14 14:35] LABS: Hematocrit 23.5 % (36.0-45.0)
--- NOTE | 2023-02-14 16:39 | RAD REPORT ---
EXAM DESCRIPTION: CT - Head Brain Wo Cont - 02/14/2023 4:27 pm CLINICAL HISTORY: Numbness status post TNK therapy COMPARISON: February 13, 2023 TECHNIQUE: Computed axial tomography of the head was obtained. IV contrast was not requested. All CT scans are performed using dose optimization technique as appropriate and may include automated exposure control or mA/KV adjustment according to patient size. FINDINGS: An intracranial bleed is not seen The ventricles are normal in caliber No significant hypodense areas within the brain visualized No extra-axial fluid collection is noted. Fluid within the sinuses/ mastoids is not seen IMPRESSION: Intracranial bleed is not seen
[2023-02-15 04:56] VITALS: O2SAT 95
[2023-02-15 04:59] LABS: Absolute Lymphocytes (CBC) 1.3 K/uL (0.7-4.9); Hematocrit 22.8 % (36.0-45.0); Lymphocytes % 21.4 % (15.3-44.8); MPV 7.6 fL (7.6-11.3); RBC Red Blood Cell Count 3.27 M/uL (3.86-4.86)
[2023-02-15 05:17] LABS: Magnesium 2.1 mg/dL (1.6-2.4); Phosphorus 3.4 mg/dL (2.5-4.9); Potassium 3.9 mEq/L (3.5-5.1)
[2023-02-15 05:28] LABS: MCV 69.6 fL (80-100)
[2023-02-15] MEDS: SOD FERRIC GLUC COMPLX/SUCROSE 125 MG in NA CHLORIDE 0.9% 100 ML IV SCH (08:08)
--- NOTE | 2023-02-15 08:20 | P.DS ---
Admission Date: 02/13/23 Discharge Date: 02/15/23 Disposition: ROUTINE DISCHARGE Discharge Condition: GOOD Reason for Admission: Left-sided numbness and dizziness Consultations: 1. 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 Larry Morton is a 37 year old female with no reported past medical history who was admitted to the [facility] on 02/13/2023 for left-sided sensory deficits with concern for a cerebrovascular accident. She was admitted to the Medicine service. Upon further evaluation, her CT head revealed, "no acute intracranial abnormality." Her CT head angiogram revealed, "no significant flow abnormality is detected." Her CT neck angiogram revealed, "no significant flow abnormality of the neck vessels is identified. Small amount of soft plaque suspected left carotid bulb." Neurology was consulted and she was evaluated by Dr. Ruiz. He recommended tenecteplase and this was given in the Emergency Department. Her MRI brain would reveal, "no acute CVA or other acute intracranial process suspected." Her transthoracic echocardiogram revealed, "1. trace of mitral and tricuspid regurgitation 2. normal left ventricular size and function. 3. no effusion." Shortly after admission, she developed significant menorrhagia. This was further evaluated with an abdomen ultrasound which revealed, "unremarkable study except for limited assessment of the pancreas and aorta due to bowel gas." A pelvic ultrasound revealed, "unremarkable study." Her hemoglobin would trend down slightly to 7.1, so a CT chest/abdomen/pelvis was obtained, which revealed, "no acute abnormality is displayed." Her vaginal bleeding would stop and her hemoglobin stabilized without the need for pRBC transfusion. Her 24-hour post-tenecteplase CT head revealed, "intracranial bleed is not seen." Dr. Ruiz has cleared her for discharge, but recommended not starting dual anti-platelet therapy given her bleeding and anemia. He recommended discharge on atorvastatin and folic acid. During her evaluation, she was noted to have microscopic hematuria. It was explained to her that this may very well be likely due to her menorrhagia; however, she should have her urinalysis repeated when she is no longer experiencing vaginal bleeding to ensure that the microscopic hematuria is resolved. It was explained to her that true microscopic hematuria can be a sign of urologic malignancy, so she should have this followed up by her PCP. She verbalized understanding and agreed to make this appointment. On 02/15/2023, she was seen on morning rounds and deemed medically stable for discharge. She was discharged with instructions to schedule follow-up appointments with her PCP, with Neurology (Dr. Ruiz), and with Hematology (Dr. Lipscomb). She was provided prescriptions for atorvastatin. She was given the opportunity to ask questions and reported no further questions. Furthermore, all questions were answered to the best of my ability. A copy of this discharge summary will be sent to the above providers to facilitate continuity of care. Today, I personally spent 25 minutes on her case, of which greater than 50% of the time was spent in patient education, counseling, and coordination of care as described above. - Physical Exam General: Alert, In no apparent distress, Oriented x3 HEENT: Atraumatic, Mucous membr. moist/pink, Sclerae nonicteric Neck: JVD not distended Respiratory: Clear to auscultation bilaterally, Normal air movement Cardiovascular: No edema, Regular rate/rhythm, No murmurs Gastrointestinal: Normal bowel sounds, Soft, Non-distended, No tenderness Musculoskeletal: No clubbing Integumentary: No rashes Neurological: Normal speech, Normal strength at 5/5 x4 extr, Normal tone, Sensation intact, Cranial nerves 3-12 intact, Normal reflexes 2+, Normal affect NIH Stroke Scale 1a. Level of consciousness: 0 - Alert; keenly responsive 1b. LOC questions: 0 - Both questions right 1c. LOC commands: 0 - Performs both tasks 2. Best Gaze: 0 - Normal 3. Visual: 0 - No visual loss 4. Facial Palsy: 0 - Normal symmetry 5a. Motor left arm: 0 - No drift for 10 seconds 5b. Motor right arm: 0 - No drift for 10 seconds 6a. Motor left le - No drift for 5 seconds 6b. Motor right le - No drift for 5 seconds 7. Limb ataxia: 0 - No ataxia 8. Sensory: 0 - Normal; no sensory loss 9. Best Language: 0 - Normal; no aphasia 10. Dysarthria: 0 - Normal 11. Extinction and Inattention: 0 - No abnormality 12. Distal motor function: 0 - No abnormality Total Score: 0 Vital Signs/Physical Exam: Temp Pulse Resp BP Pulse Ox 98.9 F 68 11 L 102/58 L 100 02/15/23 04:00 02/15/23 05:57 02/15/23 05:57 02/15/23 05:57 02/15/23 05:57 Laboratory Data at Discharge: WBC 5.90 thou/uL (4.3-10.9) 02/15/23 04:50 Hgb 7.1 g/dL (12.0-15.0) L 02/15/23 04:50 Hct 22.8 % (36.0-45.0) L 02/15/23 04:50 Plt Count 225 thou/uL (152-406) 02/15/23 04:50 PT 9.4 SECONDS (9.2-12.8) 02/13/23 14:10 INR 0.78 02/13/23 14:10 APTT 29.1 SECONDS (21.7-34.4) 02/13/23 14:10 Sodium 140 mEq/L (136-145) 02/15/23 04:50 Potassium 3.9 mEq/L (3.5-5.1) 02/15/23 04:50 BUN 6 mg/dL (7-18) L 02/15/23 04:50 Creatinine 0.66 mg/dL (0.55-1.02) 02/15/23 04:50 Glucose 100 mg/dL (74-106) 02/15/23 04:50 Phosphorus 3.4 mg/dL (2.5-4.9) 02/15/23 04:50 Magnesium 2.1 mg/dL (1.6-2.4) 02/15/23 04:50 Triglycerides 95 mg/dL (<150) 02/13/23 13:28 Cholesterol 130 mg/dL (<200) 02/13/23 13:28 HDL Cholesterol 66 mg/dL (40-60) H 02/13/23 13:28 Cholesterol/HDL Ratio 1.97 02/13/23 13:28 Home Medications: Atorvastatin Calcium [Lipitor] 40 mg PO BEDTIME #30 tab 02/15/23 Ferrous Sulfate [Feosol] 325 mg PO DAILY #30 tab 02/15/23 Folic Acid 1 mg PO DAILY #30 02/15/23 New Medications: Ferrous Sulfate [Feosol] 325 mg PO DAILY #30 tab Folic Acid 1 mg PO DAILY #30 Atorvastatin Calcium [Lipitor] 40 mg PO BEDTIME #30 tab Physician Discharge Instructions: Follow up with an Internal Medicine Physician of your choice: OKSANA CM, TYRELL [address] [facility] [place] [address] ELVA CM, AIMEE [address] [place] [address] DASH CM, OSCAR [address] [place] [address] SHANNON CM, BOLIVAR [address] [place] [address] [place] [address] ANITRA CM, DEBBIE [address] [place] [address] NANCY CM, [facility] [address] [place] [address] 1. Please call and schedule a follow-up appointment with your PCP in 3-5 days - There was blood in your urine sample, which was likely due to your menstrual cycle. Please have your urine studies repeated with your PCP to make sure there is no blood in your urine. If there is blood in your urine, your PCP may need to order additional testing. 2. Please call and schedule a follow-up appointment with Neurology (Dr. Ruiz) in 5-7 days 3. Please call and schedule a follow-up appointment with Hematology (Dr. Lipscomb) in 5-7 days for your low blood counts Diet: Regular Activity: Ad maddison Followup: Sukhdev Ruiz MD [ASSOCIATE-ACTIVE - CAN ADMIT] - NONE,NONE [Primary Care Provider] - Cinthya Anna MD [ACTIVE - CAN ADMIT] - Time spent managing pt's care (in minutes): 25
[2023-02-15] MEDS ORDERED: POTASSIUM CL SA 10 MEQ TAB PO ONE (09:00)
[2023-02-15 10:38] VITALS: BP 98/48; TEMP 97.6
--- NOTE | 2023-02-16 07:07 | EKG ---
Test Date: 2023-02-13 Test Time: 15:00:41 Lead Javascript Engineer: ALISSA MEASUREMENT RESULTS: Intervals: Rate: 56 IN: 136 QRSD: 70 QT: 406 QTc: 391 Arley: P: 50 IN: 136 QRS: 50 T: 4 INTERPRETIVE STATEMENTS: Sinus bradycardia with marked sinus arrhythmia Low voltage QRS Borderline ECG Compared to ECG 08/09/2021 21:12:59 Low QRS voltage now present Myocardial infarct finding no longer present Electronically Signed On 02-16-23 07:00:42 CDT by Bishnu Borrero
== END 2023-02-15 10:00 | disposition home or self-care (01) | DRG 62 ==
LOC: ER 13:34 → ERHOLD 17:03 → 3RD-ICU 17:36
PROVIDERS: ADMIT Internal Medicine; ATTEND Internal Medicine
DX: I63.9 Cerebral infarction, unspecified (principal); D62 Acute posthemorrhagic anemia; G81.94 Hemiplegia, unspecified affecting left nondominant side; N93.9 Abnormal uterine and vaginal bleeding, unspecified; N18.2 Chronic kidney disease, stage 2 (mild); I08.1 Rheumatic disorders of both mitral and tricuspid valves; D50.9 Iron deficiency anemia, unspecified; R42 Dizziness and giddiness; R20.0 Anesthesia of skin; R29.702 NIHSS score 2; R31.29 Other microscopic hematuria; Z98.84 Bariatric surgery status; Z79.899 Other long term (current) drug therapy
CPT/HCPCS: 36415; 70450; 70496; 70498; 70551; 71045; 71250; 74176; 76700; 76856; 80048; 80061; 81001; 82947; 83036; 83735; 84100; 84439; 84443; 84484; 84702; 85014; 85018; 85025; 85610; 85730; 86850; 86900; 86901; 92977; 93005; 93306; 96374; 97116; 97161; 97530; 99285; J2916; J3101; Q9967

== ENCOUNTER 2023-02-17 22:02 | Emergency (ER) | payer OTHER ==
--- OUTSIDE RECORDS SUMMARY | 2023-02-17 22:05 | XMS REPORT | Continuity of Care Document ---
:1985 Author Organization [facility] t Address [address] [facility] [address] [place] [address] Care Team Providers Name Role Phone Sheryl Wooten PA-C Attending Clinician Payers Payer Name Policy Type Policy Number Effective Date Expiration Date S ource Problems This patient has no known problems. Allergies, Adverse Reactions, Alerts This patient has no known allergies or adverse reactions. Social History Social Habit Start Date Stop Date Quantity Comments Source Alcohol intake [facility] Medical Branch History [facility] Alcohol Std Drinks Medica l Branch History [facility] Alcohol Binge Medical Bra formerly [facility] Sex Assigned At [facility] Medical Branch History [facility] 2019-07-02 2019-07-02 1 [place] o [facility] Alcohol Frequency 00:00:00 00:00:00 Medical Branch Smoking Status Start Date Stop Date Source Never smoker [facility] Medical Branch Medications Ordered Filled Start Stop Current Ordering Indication Dosage Frequency Signature Comments Components Source Medication Medication Date Date Medication? Clinician (SIG) Name Name ibuprofen 0 Yes 600mg Take 1 Unive rs (MOTRIN) 7-12 tablet by ity of 600 mg 00:00: mouth [place] tablet 00 every 6 Medical (six) Branch hours as needed for Pain (scale 4-6). ibuprofen 2016-0 Yes 600mg Take 1 Unive rs (MOTRIN) 7-12 tablet by ity of 600 mg 00:00: mouth [place] tablet 00 every 6 Medical (six) Branch hours as needed for Pain (scale 4-6). ibuprofen 2016-0 Yes 600mg Take 1 Unive rs (MOTRIN) 7-12 tablet by ity of 600 mg 00:00: mouth [place] tablet 00 every 6 Medical (six) Branch hours as needed for Pain (scale 4-6). ibuprofen 2016-0 Yes 600mg Take 1 Unive rs (MOTRIN) 7-12 tablet by ity of 600 mg 00:00: mouth [place] tablet 00 every 6 Medical (six) Branch hours as needed for Pain (scale 4-6). Vital Signs Vital Name Observation Time Observation Value Comments Source Systolic blood 2019-07-02 20:30:00 137 mm[Hg] Univer sity of pressure [facility] Diastolic blood 2019-07-02 20:30:00 91 mm[Hg] Unive rsity of [facility] Heart rate 2019-07-02 20:30:00 90 /min [facility] Body temperature 2019-07-02 20:30:00 [facility].83 [facility] 2019-07-02 20:30:00 18 /min [facility] Body height 2019-07-02 20:30:00 162.6 cm [facility] Body weight 2019-07-02 20:30:00 155.13 kg [facility] BMI 2019-07-02 20:30:00 58.70 kg/m2 [facility] Procedures This patient has no known procedures. Encounters Start End Encounter Admission Attending Care Care Encounter Source Date/Time Date/Time Type Type Clinicians Facility Department ID 2023-02-16 2023-02-16 Outpatient [facility] [id number] Kit 14:11:58 14:11:58 [id number] [address] [place] 2019-07-08 2019-07-08 Case JONN Wooten [id number] [facility] 00:00:00 00:00:00 Management Sheryl Colunga [id number] [id number] [phone] Nv dical nal [address] Branch [address] 2019-07-02 2019-07-02 Office JONN Wooten [id number] [facility] 15:20:19 15:54:38 Visit Sheryl Colunga [id number] [id number] [phone] Nv dicsc nal [address] [facility] Results This patient has no known results.
--- NOTE | 2023-02-17 22:44 | RAD REPORT ---
[facility] CLINICAL HISTORY: CHEST PAIN COMPARISON: Chest Single View dated 02/13/2023; Chest Single View dated 08/09/2021; Chest Single View dated 02/25/2021; Chest Single View dated 08/27/2020 TECHNIQUE: Portable AP view of the chest. FINDINGS: Mildly increased density at the lung bases, could relate to interstitial prominence or sup erimposition of soft tissues. No pneumothorax or effusion. The cardiomediastinal contours are unremar kable. IMPRESSION: No focal airspace opacity. Mildly increased density at the lung bases, could be artifact ual, or related to mild interstitial prominence. .
[2023-02-17] MEDS ORDERED: LORAZEPAM 1 MG TABLET ONE (23:02)
[2023-02-17 23:24] LABS: Absolute Lymphocytes (CBC) 1.6 K/uL (0.7-4.9); Hematocrit 24.5 % (36.0-45.0); Lymphocytes % 36.8 % (15.3-44.8); MCV 71.4 fL (80-100); MPV 7.9 fL (7.6-11.3); RBC Red Blood Cell Count 3.43 M/uL (3.86-4.86)
[2023-02-17 23:25] LABS: Protime INR 1.01
[2023-02-17 23:45] LABS: ALT/SGPT 42 U/L (13-56); AST/SGOT 35 U/L (15-37); Albumin 3.5 g/dL (3.4-5.0); Alkaline Phosphatase 58 U/L (45-117); BUN Blood Urea Nitrogen 12 mg/dL (7-18); Bicarbonate 26 mEq/L (21-32); Bilirubin Total 0.2 mg/dL (0.2-1.0); Glomerular Filtration Rate 106 ml/min (=/>90); Glucose Level 97 mg/dL (74-106); NT PRO-BNP 36 pg/mL (<125); Potassium 3.9 mEq/L (3.5-5.1); Protein, Total 7.3 g/dL (6.4-8.2); Sodium Level 139 mEq/L (136-145)
[2023-02-18 00:07] LABS: Bilirubin Direct < 0.1 mg/dL (0-0.2); Troponin High Sensitivity < 3.0 pg/mL (<58.9)
[2023-02-18 01:03] LABS: Anisocytosis 1+; Blood Morphology Comment NOTED (NOT SEEN); Platelet Estimate ADEQ; White Blood Cell Scan OK (OK)
--- NOTE | 2023-02-18 02:32 | ER ---
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 Coronavirus screen: Vaccine status: Patient reports receiving the 2nd dose of the covid vaccine. Ebola Screen: Patient negative for fever greater than or equal to 101.5 degrees Fahrenheit, and additional compatible Ebola Virus Disease symptoms. Initial Sepsis Screen: Does the patient meet any 2 criteria? No. Patient's initial sepsis screen is negative. Does the patient have a suspected source of infection? No. Patient's initial sepsis screen is negative. Risk Assessment: Do you want to hurt yourself or someone else? Patient reports no desire to harm self or others. 22:16 Method Of Arrival: Ambulatory 22:16 Acuity: CELESTINO 3 kl 23:47 Onset of symptoms was February 17, 2023. as6 Triage Assessment: 22:18 General: Appears distressed, well groomed, well developed, Behavior is anxious. Pain: kl Denies pain. Neuro: Level of Consciousness is awake, alert, obeys commands, Oriented to person, place, time, situation, Firing Pin Gauger are equal bilaterally Moves all extremities. Gait is steady, Speech is normal, Facial symmetry appears normal, Pupils are PERRLA, Numbness in left arm Reports numbness in left arm. Historical: - Allergies: 22:18 No Known Allergies; kl - Home Meds: 22:18 None [Active]; kl - PMHx: 22:18 CVA; kl - PSHx: 22:18 None; kl - Immunization history:: Adult Immunizations not up to date. - Social history:: Smoking status: Patient denies any tobacco usage or history of. - Family history:: not pertinent. Screenin:46 [facility] ED Fall Risk Assessment (Adult) Score/Fall Risk Level 0 - 2 = Low Risk. Abuse as6 screen: Denies threats or abuse. Denies injuries from another. Nutritional screening: No deficits noted. Tuberculosis screening: No symptoms or risk factors identified. Assessment: 22:30 General: Appears in no apparent distress. comfortable, Behavior is cooperative, as6 anxious. Pain: Denies pain. Neuro: Level of Consciousness is awake, alert, obeys commands, Oriented to person, place, time, situation, Reports numbness. Cardiovascular: Capillary refill < 3 seconds Patient's skin is warm and dry. Respiratory: Respiratory effort is even, unlabored, Respiratory pattern is regular, symmetrical. 02/18 01:15 Reassessment: Patient appears in no apparent distress at this time. Patient states as6 feeling better. Vital Signs: 02/17 22:16 BP 126 / 71; Pulse 70; Resp 18; Temp 98.2; Pulse Ox 99% on R/A; kl 02/18 00:01 BP 110 / 73; Pulse 66; Resp 13 S; Pulse Ox 100% on R/A; as6 01:14 BP 106 / 76; Pulse 62; Resp 13 S; Pulse Ox 100% on R/A; as6 02:30 BP 100 / 63; Pulse 65; Resp 13 S; Pulse Ox 100% on R/A; as6 ED Course: 02/17 22:06 Patient arrived in ED. jj6 22:07 Eduin Flores MD is Attending Physician. sp4 22:18 Triage completed. kl 22:26 XRAY Chest (1 view) In Process Unspecified. EDMS 22:27 Diego Finnegan, RN is Primary Nurse. as6 23:00 Inserted saline lock: 20 gauge in right antecubital area, using aseptic technique. as6 Blood collected. 23:45 Arm band placed on. as6 23:47 Placed in gown. Bed in low position. Call light in reach. Side rails up X 1. as6 02/18 02:31 Lori Vale MD is Referral Physician. sp4 02:31 No provider procedures requiring assistance completed. as6 02:40 IV discontinued, intact, bleeding controlled, No redness/swelling at site. Pressure as6 dressing applied. Administered Medications: 02:30 Not Given (Patient Refused): LORazepam PO 2 mg PO once as6 Medication: 02/17 23:46 VIS not applicable for this client. as6 Outcome: 02/18 02:31 Discharged to home ambulatory. as6 Condition: stable 02:32 Discharge ordered by . sp4 02:40 Discharge instructions given to patient, Instructed on discharge instructions, follow as6 up and referral plans. no drinking with medication, no driving heavy equipment, medication usage, Demonstrated understanding of instructions, follow-up care, medications, Prescriptions given X 1. 02:40 Patient left the ED. as6 Signatures: Dispatcher [employer] EDRebekah Pittman RN Gayatri Argueta Ashby, RN RN as6 Eduin Flores MD MD sp4
--- NOTE | 2023-02-18 02:32 | EDPHYS ---
Physician Documentation [facility] Name: Larry Morton Age: 37 yrs Sex: Female : 1985 Arrival Date: 02/17/2023 Time: 22:02 Bed 17 Private MD: ED Physician Eduin Flores HPI: 02/17 22:07 This 37 yrs old Black Female presents to ER via Unassigned with complaints of Numbness sp4 Of Arm. 22:14 Patient has history of recent admission on 02/13/2023 for left-sided sensory deficit sp4 concerning for CVA also after she was given tenecteplase here in ER. Patient was also assessed for acute blood loss anemia due to menorrhagia and chronic iron deficiency anemia secondary to gastric bypass surgery. Patient presented on 02/13/2023 for left-sided sensory deficits concerning for CVA, she was admitted to medicine service, CT head revealed no acute intracranial abnormality, CT angio revealed no significant flow abnormality in the brain, CT neck angio revealed no significant flow abnormality in the neck vessels, patient was evaluated by neurologist, he advised tenecteplase and this was given in the ER, MRI revealed no acute CVA or other acute intracranial process suspected. Transthoracic echo revealed trace mitral and tricuspid regurgitation, normal left ventricular size and function, no effusion, after admission patient developed menorrhagia this was evaluated with abdominal ultrasound that revealed that study was unremarkable pelvic ultrasound was unremarkable. Hemoglobin trended down to 7.1 CT abdomen pelvis with IV contrast revealed no acute abnormality. Vaginal bleeding has stopped and hemoglobin has stabilized. Neurologist cleared patient for discharge but advised not starting antiplatelet therapy given menorrhagia and anemia.. CLINICAL HISTORY: STROKE ALERT MRI aguilar during admission. Headache, drowsiness, CVA symptomology COMPARISON: Head angio dated 02/13/2023 TECHNIQUE: Multi-sequence, multiplanar MR imaging of the brain was performed without contrast. FINDINGS: No intracranial hemorrhage, hydrocephalus or extra-axial fluid collections. No edema or shift of midline structures. No findings to suspect brain mass. DWI is negative for acute CVA. Blooming artifact anteriorly limits quality of the diffusion-weighted imaging. Midline structures are normally formed. Mastoid air cells and paranasal sinuses are clear. IMPRESSION: No acute CVA or other acute intracranial process suspected.. Historical: - Allergies: 22:18 No Known Allergies; kl - Home Meds: 22:18 None [Active]; kl - PMHx: 22:18 CVA; kl - PSHx: 22:18 None; kl - Immunization history:: Adult Immunizations not up to date. - Social history:: Smoking status: Patient denies any tobacco usage or history of. - Family history:: not pertinent. ROS: 22:43 Constitutional: Negative for fever, chills, and weight loss, reports anxiety Eyes: sp4 Negative for injury, pain, redness, and discharge, ENT: Negative for injury, pain, and discharge, Neck: Negative for injury, pain, and swelling, Cardiovascular: Negative for chest pain, palpitations, and edema, Respiratory: Negative for shortness of breath, cough, wheezing, and pleuritic chest pain, Abdomen/GI: Negative for abdominal pain, nausea, vomiting, diarrhea, and constipation, Back: Negative for injury and pain, : Negative for injury, bleeding, discharge, and swelling, MS/Extremity: Negative for injury and deformity, Skin: Negative for injury, rash, and discoloration, Neuro: Negative for headache, weakness,and seizure, positive numbness and tingling left hand Psych: Negative for depression, positive anxiety Allergy/Immunology: Negative for hives, rash, and allergies Endocrine: Negative for neck swelling, polydipsia, polyuria, polyphagia, and weight changes Hematologic/Lymphatic: Negative for swollen nodes, abnormal bleeding, and unusual bruising Exam: 22:43 Constitutional: This is a well developed, well nourished patient who is awake, alert, sp4 and in no acute distress. Head/Face: Normocephalic, atraumatic. Eyes: Pupils equal round and reactive to light, extra-ocular motions intact. Lids and lashes normal. Conjunctiva and sclera are not injected. Cornea within normal limits. Periorbital areas with no swelling, redness, or edema. ENT: Nares patent. No nasal discharge, no septal abnormalities noted. Tympanic membranes are normal and external auditory canals are clear. Oropharynx with no redness, swelling, or masses, exudates, or evidence of obstruction, uvula midline. Mucous membranes moist. Neck: Trachea midline, no thyromegaly or masses palpated, and no cervical lymphadenopathy. Supple, full range of motion without nuchal rigidity, or vertebral point tenderness. No Meningismus. Chest/axilla: Normal chest wall appearance and motion. Nontender with no deformity. No lesions are appreciated. Cardiovascular: Regular rate and rhythm with a normal S1 and S2. No gallops, murmurs, or rubs. Normal PMI, no JVD. No pulse deficits. Respiratory: Lungs have equal breath sounds bilaterally, clear to auscultation and percussion. No rales, rhonchi or wheezes noted. No increased work of breathing, no retractions or nasal flaring. Abdomen/GI: Soft, non-tender, with normal bowel sounds. No distension or tympany. No guarding or rebound. No evidence of tenderness throughout. Back: No spinal tenderness. No costovertebral tenderness. Skin: Warm, dry with normal turgor. Normal color with no rashes, no lesions, and no evidence of cellulitis. MS/ Extremity: Pulses equal, no cyanosis. Neurovascular intact. Full, normal range of motion. Neuro: Awake and alert, GCS 15, oriented to person, place, time, and situation. Cranial nerves II-XII grossly intact. Motor strength 5/5 in all extremities. Sensory grossly intact. Psych: Awake, alert, with orientation to person, place and time positive for anxiety 22:43 ECG was reviewed by the Attending Physician. Normal sinus rhythm at the rate of 66, EKG time 2239, no ST elevation or depression, no ectopy, muscle tremor artifact, otherwise normal EKG Vital Signs: 22:16 BP 126 / 71; Pulse 70; Resp 18; Temp 98.2; Pulse Ox 99% on R/A; kl 02/18 00:01 BP 110 / 73; Pulse 66; Resp 13 S; Pulse Ox 100% on R/A; as6 01:14 BP 106 / 76; Pulse 62; Resp 13 S; Pulse Ox 100% on R/A; as6 02:30 BP 100 / 63; Pulse 65; Resp 13 S; Pulse Ox 100% on R/A; as6 MDM: 02/17 22:07 Patient medically screened. sp4 02/18 02:21 Differential diagnosis: Noncardiac chest pain, numbness, tingling. Data reviewed: vital sp4 signs, nurses notes, lab test result(s), CBC, electrolytes, hepatic panel, EKG, radiologic studies, plain films. Consideration of Admission/Observation Patient was admitted/placed on observation. Escalation of care including admission/observation considered. ED course: Hemoglobin is above baseline at 7.6 with baseline being 7.1. Electrolyte panel is normal, there is signs of blood loss microcytic anemia, LFTs are normal, PT/INR is normal, troponin is negative, EKG is unremarkable, and chest x-ray has revealed mildly increased density at the lung base which could represent interstitial prominence superimposed on soft tissues no pneumothorax or effusion, cardiomediastinal silhouette normal, no focal airspace opacity, mildly increased density at the lung bases could be artifactual or could be related to mild interstitial prominence. 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 . 02/17 22:08 Order name: Basic Metabolic Panel; Complete Time: 02:16 [facility] 02/17 22:08 Order name: CBC with Diff; Complete Time: : [facility] 02/17 22:08 Order name: LFT's; Complete Time: 02: [facility] 02/17 22:08 Order name: NT PRO-BNP; Complete Time: 02:16 [facility] 02/17 22:08 Order name: PT-INR; Complete Time: 02:16 [facility] 02/17 22:08 Order name: Troponin HS; Complete Time: 02: [facility] 02/17 23:37 Order name: CBC Smear Scan; Complete Time: 02:16 [facility] 02/17 22:08 Order name: XRAY Chest (1 view); Complete Time: 02:16 [facility] 02/17 22:08 Order name: EKG; Complete Time: 22:10 [facility] 02/17 22:08 Order name: Cardiac monitoring; Complete Time: 22:43 [facility] 02/17 22:08 Order name: EKG - Nurse/Tech; Complete Time: 22:43 [facility] 02/17 22:08 Order name: IV Saline Lock; Complete Time: 23:06 [facility] 02/17 22:08 Order name: Labs collected and sent; Complete Time: 23:06 [facility] 02/17 22:08 Order name: O2 Per Protocol; Complete Time: 22:28 sp4 02/17 22:08 Order name: O2 Sat Monitoring; Complete Time: : sp4 EC/29 22:43 Rate is 66 beats/min. Rhythm is regular, Normal Sinus Rhythm. QRS [employer] is Normal. SC sp4 interval is normal. QRS interval is normal. QT interval is normal. T waves are Normal. No ST changes noted. Clinical impression: Normal ECG. Interpreted by me. Administered Medications: 02/18 02:30 Not Given (Patient Refused): LORazepam PO 2 mg PO once as6 Disposition Summary: 02/18/23 02:32 Discharge Ordered Location: Home sp4 Problem: new sp4 Symptoms: have improved sp4 Condition: Stable sp4 Diagnosis - Anxiety disorder, unspecified sp4 - Microcytic anemia secondary to blood loss, menorrhagia, acute anxiety attack, sp4 Followup: sp4 - With: Lori Vale MD - When: 7 - 10 days - Reason: Recheck today's complaints Discharge Instructions: - Discharge Summary Sheet sp4 - Menorrhagia, [id number] sp4 - Managing Anxiety, Adult sp4 Forms: - Thank You Letter sp4 Prescriptions: - Ativan 1 mg Oral Tablet - take 1 tablet by ORAL route once daily As needed PRN anxiety; 20 tablet; sp4 Refills: 0, Product Selection Permitted Signatures: Dispatcher [employer] Rebekah Collazo, RN Diego Burns RN RN as6 Eduin Flores MD MD sp4
[2023-02-18 02:54] VITALS: TEMP 98.2
[2023-02-18 02:56] VITALS: O2SAT 100
[2023-02-18 03:00] VITALS: BP 100/63
--- NOTE | 2023-02-19 12:40 | EKG ---
Test Date: 2023-02-17 Test Time: 22:39:04 Research Laboratory Specialist: MEASUREMENT RESULTS: Intervals: Rate: 66 NM: 138 QRSD: 68 QT: 380 QTc: 398 [place]: P: 65 NM: 138 QRS: 7 T: 7 INTERPRETIVE STATEMENTS: Normal sinus rhythm with sinus arrhythmia Cannot rule out Anterior infarct, age undetermined Abnormal ECG Compared to ECG 02/13/2023 15:00:41 Myocardial infarct finding now present Sinus bradycardia no longer present Electronically Signed On 02-19-23 12:37:22 CDT by Bishnu Borrero
== END 2023-02-18 02:40 | disposition home or self-care (01) ==
LOC: ER 22:02
DX: F41.9 Anxiety disorder, unspecified (principal); D50.0 Iron deficiency anemia secondary to blood loss (chronic); N92.0 Excessive and frequent menstruation with regular cycle; Z86.73 Personal history of transient ischemic attack (TIA), and cerebral infarction without residual deficits
CPT/HCPCS: 36415; 71045; 80048; 80076; 83880; 84484; 85025; 85610; 93005; 99284

== ENCOUNTER 2023-02-19 13:31 | Emergency (ER) | payer OTHER ==
--- OUTSIDE RECORDS SUMMARY | 2023-02-19 13:36 | XMS REPORT | Continuity of Care Document ---
:1985 Author Organization [facility] t Address [address] [place] [address] Care Team Providers Name Role Phone Sheryl Wooten PA-C Attending Clinician Payers Payer Name Policy Type Policy Number Effective Date Expiration Date S ource Problems This patient has no known problems. Allergies, Adverse Reactions, Alerts This patient has no known allergies or adverse reactions. Social History Social Habit Start Date Stop Date Quantity Comments Source Alcohol intake [facility] Medical Branch History [facility] o [facility] Alcohol Std Drinks Medica l Branch History [facility] Alcohol Binge Medical [facility] Sex Assigned At [facility] Medical Branch History [facility] 2019-07-02 2019-07-02 1 [place] o [facility] Alcohol Frequency 00:00:00 00:00:00 Medical Branch Smoking Status Start Date Stop Date Source Never smoker [facility] Medications Ordered Filled Start [...] 20:30:00 137 mm[Hg] Univer sity of pressure [facility] Diastolic blood 2019-07-02 20:30:00 91 mm[Hg] Unive rsity of [facility] Heart rate 2019-07-02 20:30:00 90 /min [facility] Body temperature 2019-07-02 20:30:00 36.83 [facility] Res[facility] rate 2019-07-02 20:30:00 18 /min [facility] Body height 2019-07-02 20:30:00 162.6 cm [facility] Body weight 2019-07-02 20:30:00 155.13 kg [facility] BMI 2019-07-02 20:30:00 58.70 kg/m2 [facility] Procedures This patient has no known procedures. Encounters Start End Encounter Admission Attending Care Care Encounter Source Date/Time Date/Time Type Type Clinicians Facility Department ID 2023-02-16 2023-02-16 Outpatient SFA [id number] Kit 14:11:58 14:11:58 [id number] [place] 2019-07-08 2019-07-08 Case JONN Wooten [id number] [facility] 00:00:00 00:00:00 Management Sheryl Colunga [id number] [facility] [id number] [phone] [place] dical nal [address] 2019-07-02 2019-07-02 Office JONN Wooten [id number] [facility] 15:20:19 15:54:38 Visit Sheryl Colunga [id number] i [facility] [id number] [id number] [place] dical nal [address] [facility] Results Test Description Test Time Test Comments Results Result Comments Source CBC W/AUTO DIFF WITH PLATELETS 2023-02-18 15:50:45 Test Item Value Reference Range Interpretation Comme nts WBC (test code = 1001) 4.6 K/UL 3.5-11.0 RBC (test code = 1002) 3.65 M/UL 3.80-5.40 L HEMOGLOBIN (test code = 7.7 G/DL 11.5-15.5 L 1003) HEMATOCRIT (test code = 26.9 % 34.0-45.0 L 1004) MCV (test code = 1005) 73.7 fL 80.0-99.0 L MCH (test code = 1006) 21.1 PG 25.0-33.0 L MCHC (test code = 1007) 28.6 G/DL 31.0-36.0 L RDW (test code = 1038) 19.3 % 11.5-15.0 H NEUTROPHILS (test code = 41.3 % AU TOMATED DIFFERENTIAL 1008) CONFIRMED WITH MANUAL SLIDE REVIEW. LYMPHOCYTES (test code = 42.9 % 1010) MONOCYTES (test code = 1011) 13.0 % EOSINOPHILS (test code = 1.5 % 1012) BASOPHILS (test code = 1013) 1.1 % IMMATURE GRANULOCYTES (test 0.2 % code = 1036) NUCLEATED RBCS (test code = 0.0 /100 WBC'S See_Comment [Automated message] The 1065) system which ge nerated this result transmit marti reference range: 0.0. The reference range was not u sed to interpret this result as normal/abnormal . PLATELET COUNT (test code = 299 K/UL [phone]) ABSOLUTE NEUTROPHILS (test 1.88 K/UL 1.50-7.50 code = 1066) ABSOLUTE LYMPHOCYTES (test 1.95 K/UL 1.00-4.00 code = 1067) ABSOLUTE MONOCYTES (test 0.59 K/UL 0.20-1.00 code = 1068) ABSOLUTE EOSINOPHILS (test 0.07 K/UL 0.00-0.50 code = 1040) ABSOLUTE BASOPHILS (test 0.05 K/UL 0.00-0.20 code = 1069) ABS IMMATURE GRANULOCYTES 0.01 K/UL 0.00-0.10 (test code = 1020) ABS NUCLEATED RBCS (test 0.00 K/UL 0.00-0.11 code = 96645) COMMENTS (test code = 1016) (NOTE) MODERATE ANISOCYTOSIS MODERATE HYPOCH ROMASIA MODERATE MICROC YTOSIS PLATELETS APPEA R NORMAL TSH, THIRD [id number] 10:17:10 Test Item Value Reference Range Interpretation Comments TSH, THIRD GENERATION (test code 4.160 UIU/ML 0.400-4.100 H = 2821) [id number] 08:48:32 Test Item Value Reference Range Interpretation Comments NT-proBNP <50 PG/ML SEE BELOW If NT-ProBNP i s less than 300 (test code = PG/ML, heart fa ilure is unlikely 52246) for allages. Age............ .....Heart Failure Likely <50 Years.......... .>=450 PG/ML 50-75 Years.... .....>=900 PG/ML > 75 Years..... .....>=1800 PG/ML Methodology: Ro clary Anais Electrochemilum inescense Immunoassay [facility] has important patho logy staff changes effecti ve 12/20/2022. New patholo gy staff will provide uninter rupted, excellent patient care an d clinical consultation. S ee URL: [email or web address] UNLESS OTHERWIS E INDICATED, ALL TESTING PERFORM ED AT CLINICAL PATHOLOGY [facility], [facility]. [address] [place] [id number] LABORATORY DIRE CTOR: Arpit MURILLO MANDY NUMBER [id number] [place]. [id number] COMPREHENSIVE METABOLIC [id number] 06:00:01 Test Item Value Reference Range Interpretation Comments GLUCOSE (test code = 85 MG/DL 70-99 2216) BUN (test code = 7 MG/DL -2207) CREATININE (test 0.71 MG/DL 0.60-1.30 code = 2214) eGFR (2020 CKD-EPI) 113 >60 (test code = 81558) ML/MIN/1.73 CALC BUN/CREAT (test 10 RATIO 04-18 code = 2235) SODIUM (test code = 141 MEQ/L 005-179 0992) POTASSIUM (test code 4.2 MEQ/L 3.5-5.4 = 2228) CHLORIDE (test code 106 MEQ/L 95-107 = 2215) CARBON DIOXIDE (test 24 MEQ/L 19-31 code = 220) CALCIUM (test code = 9.2 MG/DL 8.5-10.5 2208) PROTEIN, TOTAL (test 7.4 G/DL 6.1-8.3 code = 222) ALBUMIN (test code = 4.2 G/DL 3.5-5.2 2200) CALC GLOBULIN (test 3.2 G/DL 1.9-3.7 code = 2240) CALC A/G RATIO (test 1.3 RATIO 1.0-2.6 code = 2234) BILIRUBIN, TOTAL 0.2 MG/DL See_Comment [Automated message] (test code = 2206) The syste m which generated this result transmit marti reference range : <=1.2. The refe rence range was not u sed to interpret th is result as normal/abnormal . ALKALINE PHOSPHATASE 53 U/L 40-112 (test code = 2203) AST (test code = 32 U/L 9-40 2217) ALT (test code = 31 U/L 5-40 2218) LIPID [id number] 06:00:01 Test Item Value Reference Range Interpretation Comments CHOLESTEROL (test 128 MG/DL <200 code = 2210) TRIGLYCERIDES (test 66 MG/DL <150 code = 2232) HDL CHOLESTEROL (test 62 MG/DL >39 code = 2220) CALC LDL CHOL (test 51 MG/DL <100 NOTE: C ALCULATED LDL code = 2237) IS BASED ON MARIPOSA-IYER METHOD WHICHINCLUDES ADJUSTABLE TRIGLYCERIDE:VL DL CHOLESTEROL RAT IO.THIS FACTOR VARIES B Y MEASURED TRIGLY CERIDE AND NON-HDLCHOL ESTEROL CONCENTRATIONS WITH INCREASED CALCU LATED LDL SEENIN HIGH ER TRIGLYCERIDE OR LOWER NON-HDL SPECIME NS. FOR MOREINFORMATION , SEE CLIENT ANNOUNCE MENT AT [email or web address] [email or web address] LDL/HDL 0.82 RATIO <3.22 (test code = 223) HEMOGLOBIN [id number] 05:05:23 Test Item Value Reference Range Interpretation Comments HEMOGLOBIN A1c (test code = 17333) 5.3 % 4.2-5.6
--- NOTE | 2023-02-19 13:48 | ER ---
Nurse's Notes [facility] Name: Larry Morton Age: 37 yrs Sex: Female : 1985 Arrival Date: 02/19/2023 Time: 13:31 Bed Waiting Private MD: Diagnosis: Anemia, unspecified Presentation: 02/19 13:38 Chief complaint: Patient states: Cisco Clark, PCP Sunday, had labs drawn. HGB 7.7, ll1 HCT 26.9, was told to come to ER today for blood transfusion. Coronavirus screen: Vaccine status: Patient reports receiving the 2nd dose of the covid vaccine. Client denies travel out of the [place] in the last 14 days. At this time, the client does not indicate any symptoms associated with coronavirus-19. Ebola Screen: Patient denies travel to an Ebola-affected area in the 21 days before illness onset. Initial Sepsis Screen: Does the patient meet any 2 criteria? No. Patient's initial sepsis screen is negative. Does the patient have a suspected source of infection? No. Patient's initial sepsis screen is negative. Risk Assessment: Do you want to hurt yourself or someone else? Patient reports no desire to harm self or others. 13:38 Method Of Arrival: Ambulatory ll1 13:38 Acuity: CELESTINO 5 ll1 13:40 Onset of symptoms is unknown. ll1 Triage Assessment: 13:45 General: Appears in no apparent distress. Behavior is calm, cooperative, appropriate ll1 for age. Pain: Denies pain. Neuro: No deficits noted. 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 - Social history:: Smoking status: Patient denies any tobacco usage or history of. Screenin:52 [facility] ED Fall Risk Assessment (Adult) Score/Fall Risk Level 0 - 2 = Low Risk ll1 Oriented to surroundings, Maintained a safe environment, Educated pt \T\ family on fall prevention, incl call for assistance when getting out of bed, Hourly rounding (assess needs \T\ fall precautionary measures) done. Abuse screen: Denies threats or abuse. Abuse screen: Denies threats or abuse. Nutritional screening: No deficits noted. Tuberculosis screening: No symptoms or risk factors identified. Assessment: 13:52 Reassessment: No changes from previously documented assessment. Patient and/or family ll1 updated on plan of care and expected duration. Pain level reassessed. Patient is alert, oriented x 3, equal unlabored respirations, skin warm/dry/pink. Vital Signs: 13:38 BP 120 / 66; Pulse 71; Resp 17; Temp 98.5; Pulse Ox 100% ; ll1 ED Course: 13:34 Patient arrived in ED. ts1 13:37 Arm band placed on. ll1 13:40 Triage completed. ll1 13:41 Marcia King FNP-C is [facility]. kb 13:41 Aramis Limon MD is Attending Physician. kb 13:52 Patient has correct armband on for positive identification. Bed in low position. ll1 Cardiac monitoring not applicable on this patient. 13:52 No provider procedures requiring assistance completed. Patient did not have IV access ll1 during this emergency room visit. Administered Medications: No medications were administered Medication: 13:52 VIS not applicable for this client. ll1 Outcome: 13:47 Discharge ordered by . kb 13:52 Patient left the ED. ll1 13:52 Discharged to home ambulatory. ll1 13:52 Condition: stable 13:52 Discharge instructions given to patient, Instructed on discharge instructions, follow up and referral plans. Demonstrated understanding of instructions, follow-up care. Signatures: Marcia King FNP-C FNP-Ckb Lewis, Lynsay, RN RN ll1 Angie Prasad PAS PAS ts1 Corrections: (The following items were deleted from the chart) 13:41 13:38 Chief complaint: Patient states: Saw PCP Sunday, had labs drawn. HGB 7.7, HCT ll1 26.9 ll1 13:47 13:38 Acuity: CELESTINO 3 ll1 ll1
--- NOTE | 2023-02-19 13:48 | EDPHYS ---
Physician Documentation [facility] Name: Larry Morton Age: 37 yrs Sex: Female : 1985 Arrival Date: 02/19/2023 Time: 13:31 Bed Waiting Private MD: ED Physician Aramis Limon HPI: 02/19 14:00 This 37 yrs old Black Female presents to ER via Ambulatory with complaints of BLOOD kb TRANSFUSION. 14:00 Pt reports she had labs drawn at the [facility] on Sunday. She was called today kb and told to come to the ER for a blood transfusion because her hgb was 7.7. Pt was seen here on Sunday and hgb 7.6. Pt states she just started an iron supplement. States she has heavy periods, but no other bleeding. Denies any shortness of breath, palpitations or pain. States "I feel great. If I don't need a transfusion I don't want one, but I will take it if I need it.". The patient has not experienced similar symptoms in the past. The patient has been recently seen by a physician:. 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 - Social history:: Smoking status: Patient denies any tobacco usage or history of. ROS: 14:02 Constitutional: Negative for fever, chills, and weight loss. kb 14:02 All other systems are negative. Exam: 14:02 Constitutional: This is a well developed, well nourished patient who is awake, alert, kb and in no acute distress. Head/Face: Normocephalic, atraumatic. ENT: Moist Mucous membranes Cardiovascular: Regular rate and rhythm with a normal S1 and S2. No gallops, murmurs, or rubs. No pulse deficits. Respiratory: Respirations even and unlabored. No increased work of breathing. Talking in full sentences Skin: Warm, dry with normal turgor. Normal color. MS/ Extremity: Pulses equal, no cyanosis. Neurovascular intact. Full, normal range of motion. Neuro: Awake and alert, GCS 15, oriented to person, place, time, and situation. Moves all extremities. Normal gait. Vital Signs: 13:38 BP 120 / 66; Pulse 71; Resp 17; Temp 98.5; Pulse Ox 100% ; ll1 MDM: 13:41 Patient medically screened. kb 14:02 Differential Diagnosis anemia. Data reviewed: vital signs, nurses notes. Test kb considered but Not performed: Labs: cbc, bmp considered, but pt has labs on 02/17/23 here that I reviewed. External Records Reviewed: Outpatient labs: cbc from [facility] reviewed. Counseling: I had a detailed discussion with the patient and/or guardian regarding: the historical points, exam findings, and any diagnostic results supporting the discharge/admit diagnosis, the need for outpatient follow up, a family practitioner, to return to the emergency department if symptoms worsen or persist or if there are any questions or concerns that arise at home. Administered Medications: No medications were administered Disposition: 15:24 Co-signature as Attending Physician, Aramis Limon MD I reviewed the patient's care rn provided by the Advanced Practice Provider and agree with the diagnosis and treatment plan. Disposition Summary: 02/19/23 13:47 Discharge Ordered Location: Home kb Condition: Stable kb Diagnosis - Anemia, unspecified kb Followup: kb - With: Emergency Department - When: As needed - Reason: Worsening of condition Followup: kb - With: Private Physician - When: 2 - 3 days - Reason: Recheck today's complaints, Continuance of care, Re-evaluation by your physician Discharge Instructions: - Anemia kb - Discharge Summary Sheet ll1 Forms: - Medication Reconciliation Form kb - Thank You Letter kb - Antibiotic Education kb - Prescription Opioid Use kb - Work release form ll1 Signatures: Marcia King, DILLONC HARRY-Aramis Ryan MD MD rn Lewis, Lynsay, RN RN ll1
[2023-02-19 14:20] VITALS: BP 120/66; TEMP 98.5; O2SAT 100
== END 2023-02-19 13:52 | disposition home or self-care (01) ==
LOC: ER 13:31
DX: D64.9 Anemia, unspecified (principal)
CPT/HCPCS: 99282

== ENCOUNTER 2023-06-01 22:33 | Observation (INO) | payer OTHER ==
--- OUTSIDE RECORDS SUMMARY | 2023-06-01 22:37 | XMS REPORT | Continuity of Care Document ---
:1985 [facility] t Address [address] [facility]. [address] [place] [address] Care Team Providers Name Role Phone PCP, PATIENT DOES NOT HAVE A Primary Care Physician UnavailLEANDRA Muse Attending Clinician Unavailable Leandra Mckeon MD Attending Clinician Doctor Unassigned, [place] Attending Clinician Unavailable Sheryl Wooten PA-C Attending Clinician Payers Payer Name Policy Type Policy Number Effective Date Expiration Date S ourdarinel PHCS GENERIC [id number] 2022 00:00:00 Problems Condition Condition Condition Status Onset Resolution Last Treating Co mments Source Name Details Category Date Date Treatment Clinician Date NSVT NSVT Disease Active Univers (nonsustai (nonsustai 7-17 it y of faith faith 00:00: [place] ventricula ventricula 00 Me dical r r Branch tachycardi tachycardi a) a) PFO PFO Disease Active Univers (patent (patent 7-17 ity of foramen foramen 00:00: [place] ovale) ovale) 00 Medical Branch Orthostati Orthostati Disease Active U nivers c c 5-19 ity of hypotensio hypotensio [place] 00 Medical Branch Obesity Obesity Disease Active Univers (BMI (BMI 5-19 ity of 30-39.9) 30-39.9) 00:00: [place] 00 Medical Branch History of History of Disease Active U nivers transient transient 5-19 ity of ischemic ischemic 00:00: [place] attack attack 00 Medical (TIA) (TIA) Branch Dizziness Dizziness Disease Active Uni vers and and 03-09 ity of giddiness [place] Sinus Sinus Disease Active Univers bradycardi bradycardi 03-09 it y of a a 00:00: [place] [address] Medical Branch Allergies, Adverse Reactions, Alerts Allergy Allergy Status Severity Reaction(s) Onset Inactive Treating Comm ents Source Name Type Date Date Clinician NO KNOWN Drug Active Univers ALLERGIE Class ity of S [facility] Social History Social Habit Start Date Stop Date Quantity Comments Source Gender identity Universit y of [facility] Sexual orientation Univer sity of [facility] History SDOH University o f Alcohol Std Drinks [facility] History [facility] University o f Alcohol Binge [place] Medic [facility] [place] History of Social 2023-05-07 2023-05-07 Univers ity of function 00:00:00 00:00:00 [facility] Tobacco use and 2023-05-07 2023-05-07 Smokeless Universit y of exposure 00:00:00 00:00:00 tobacco non-user [facility] dical [place] Alcohol intake 2023-05-07 2023-05-07 Ex-drinker University 00:00:00 00:00:00 (finding) [facility] Exposure to 2023-02-27 2023-03-09 Not sure [facility] SARS-CoV-2 (event) 00:00:00 08:25:00 [facility] History SDOH 2019-07-02 2019-07-02 1 University o f Alcohol Frequency 00:00:00 00:00:00 [facility] edical [place] Sex Assigned At [birth year] Universit y of 00:00:00 00:00:00 [facility] Smoking Status Start Date Stop Date Source Never smoked tobacco [facility] [place] [facility] Medications Ordered Filled Start Stop Current Ordering Indication Dosage Frequency Signature Comments Components Source Medication Medication Date Date Medication? Clinician (SIG) Name Name midodrine Yes [id number] 2.5mg Take 1 U nivers 2.5 mg 8-10 tablet by ity of tablet 00:00: mouth in [place] 00 the Medical morning Branch and 1 tablet at noon and 1 tablet in the evening. midodrine 2023-0 Yes [id number] 2.5mg Take 1 U nivers 2.5 mg 7-17 tablet by ity of tablet 00:00: mouth in [place] 00 the Medical morning Branch and 1 tablet at noon and 1 tablet in the evening. midodrine 3-0 Yes [id number] 2.5mg Take 1 U nivers 2.5 mg 7-17 tablet by ity of tablet 00:00: mouth in [place] 00 the Medical morning Branch and 1 tablet at noon and 1 tablet in the evening. midodrine 3-0 Yes [id number] 2.5mg Take 1 U nivers 2.5 mg 7-17 tablet by ity of tablet 00:00: mouth in [place] 00 the Medical morning Branch and 1 tablet at noon and 1 tablet in the evening. midodrine 2022-0 2023- No [id number] 2.5mg Take 1 Univers 2.5 mg 7-17 08-10 tablet by ity of tablet 00:00: 00:00 mouth in [place] 00 :00 the Medical morning Branch and 1 tablet at noon and 1 tablet in the evening. foLIC acid 3-0 Yes 1mg Take 1 Unive rs 1 mg tablet 5-19 tablet by ity of 08:45: mouth in [place] [address] the Medical morning. Branch ferrous 2023-0 Yes 325mg Take 1 Univers sulfate 5-19 tablet by ity of (IRON) 325 08:45: mouth in [facility] as mg (65 mg 47 the Medical iron) morning Branch tablet and 1 tablet at noon and 1 tablet in the evening. Take with meals. foLIC acid 3-0 Yes 1mg Take 1 Unive rs 1 mg tablet 5-19 tablet by ity of 08:45: mouth in [place] [address] the Medical morning. Branch ferrous 2023-0 Yes 325mg Take 1 Univers sulfate 5-19 tablet by ity of (IRON) 325 08:45: mouth in [facility] as mg (65 mg 47 the Medical iron) morning Branch tablet and 1 tablet at noon and 1 tablet in the evening. Take with meals. foLIC acid 2023-0 Yes 1mg Take 1 Unive rs 1 mg tablet 5-19 tablet by ity of 08:45: mouth in [place] [address] the Medical morning. Branch ferrous 2023-0 Yes 325mg Take 1 Univers sulfate 5-19 tablet by ity of (IRON) 325 08:45: mouth in [place] mg (65 mg 47 the Medical iron) morning Branch tablet and 1 tablet at noon and 1 tablet in the evening. Take with meals. foLIC acid 2023-0 Yes 1mg Take 1 Unive rs 1 mg tablet 5-19 tablet by ity of 08:45: mouth in [place] [address] the Medical morning. Branch ferrous 2023-0 Yes 325mg Take 1 Univers sulfate 5-19 tablet by ity of (IRON) 325 08:45: mouth in [place] mg (65 mg 47 the Medical iron) morning Branch tablet and 1 tablet at noon and 1 tablet in the evening. Take with meals. foLIC acid 2023-0 Yes 1mg Take 1 Unive rs 1 mg tablet 5-19 tablet by ity of 08:45: mouth in [place] [address] the Medical morning. Branch ferrous 2023-0 Yes 325mg Take 1 Univers sulfate 5-19 tablet by ity of (IRON) 325 08:45: mouth in [place] mg (65 mg 47 the Medical iron) morning Branch tablet and 1 tablet at noon and 1 tablet in the evening. Take with meals. foLIC acid 2023-0 Yes 1mg Take 1 Unive rs 1 mg tablet 5-19 tablet by ity of 08:45: mouth in [place] [address] the Medical morning. Branch ferrous 2023-0 Yes 325mg Take 1 Univers sulfate 5-19 tablet by ity of (IRON) 325 08:45: mouth in [place] mg (65 mg 47 the Medical iron) morning Branch tablet and 1 tablet at noon and 1 tablet in the evening. Take with meals. foLIC acid 2023-0 Yes 1mg Take 1 Unive rs 1 mg tablet 5-19 tablet by ity of 08:45: mouth in [place] [address] the Medical morning. Branch ferrous 2023-0 Yes 325mg Take 1 Univers sulfate 5-19 tablet by ity of (IRON) 325 08:45: mouth in [place] mg (65 mg 47 the Medical iron) morning Branch tablet and 1 tablet at noon and 1 tablet in the evening. Take with meals. foLIC acid 2023-0 Yes 1mg Take 1 Unive rs 1 mg tablet 5-19 tablet by ity of 08:45: mouth in [place] [address] the Medical morning. Branch ferrous 2023-0 Yes 325mg Take 1 Univers sulfate 5-19 tablet by ity of (IRON) 325 08:45: mouth in [place] as mg (65 mg 47 the Medical iron) morning Branch tablet and 1 tablet at noon and 1 tablet in the evening. Take with meals. foLIC acid 2023-0 Yes 1mg Take 1 Unive rs 1 mg tablet 5-19 tablet by ity of 08:45: mouth in [place] [address] the Medical morning. Branch ferrous 2023-0 Yes 325mg Take 1 Univers sulfate 5-19 tablet by ity of (IRON) 325 08:45: mouth in [place] mg (65 mg 47 the Medical iron) morning Branch tablet and 1 tablet at noon and 1 tablet in the evening. Take with meals. foLIC acid 2023-0 Yes 1mg Take 1 Unive rs 1 mg tablet 5-19 tablet by ity of 08:45: mouth in [place] [address] the Medical morning. Branch ferrous 2023-0 Yes 325mg Take 1 Univers sulfate 5-19 tablet by ity of (IRON) 325 08:45: mouth in [place] mg (65 mg 47 the Medical iron) morning Branch tablet and 1 tablet at noon and 1 tablet in the evening. Take with meals. foLIC acid 2023-0 Yes 1mg Take 1 Unive rs 1 mg tablet 5-19 tablet by ity of 08:45: mouth in [place] [address] the Medical morning. Branch ferrous 2023-0 Yes 325mg Take 1 Univers sulfate 5-19 tablet by ity of (IRON) 325 08:45: mouth in [place] mg (65 mg 47 the Medical iron) morning Branch tablet and 1 tablet at noon and 1 tablet in the evening. Take with meals. foLIC acid 2023-0 Yes 1mg Take 1 Unive rs 1 mg tablet 5-19 tablet by ity of 08:45: mouth in [place] [address] the Medical morning. Branch ferrous 2023-0 Yes 325mg Take 1 Univers sulfate 5-19 tablet by ity of (IRON) 325 08:45: mouth in [place] mg (65 mg 47 the Medical iron) morning Branch tablet and 1 tablet at noon and 1 tablet in the evening. Take with meals. foLIC acid 2023-0 Yes 1mg Take 1 Unive rs 1 mg tablet 5-19 tablet by ity of 08:45: mouth in [place] [address] the Medical morning. Branch ferrous 2023-0 Yes 325mg Take 1 Univers sulfate 5-19 tablet by ity of (IRON) 325 08:45: mouth in [place] mg (65 mg 47 the Medical iron) morning Branch tablet and 1 tablet at noon and 1 tablet in the evening. Take with meals. foLIC acid 2023-0 Yes 1mg Take 1 Unive rs 1 mg tablet 5-19 tablet by ity of 08:45: mouth in [place] [address] the Medical morning. Branch ferrous 2023-0 Yes 325mg Take 1 Univers sulfate 5-19 tablet by ity of (IRON) 325 08:45: mouth in [place] mg (65 mg 47 the Medical iron) morning Branch tablet and 1 tablet at noon and 1 tablet in the evening. Take with meals. foLIC acid 2023-0 Yes 1mg Take 1 Unive rs 1 mg tablet 5-19 tablet by ity of 08:45: mouth in [place] [address] the Medical morning. Branch ferrous 2023-0 Yes 325mg Take 1 Univers sulfate 5-19 tablet by ity of (IRON) 325 08:45: mouth in [place] mg (65 mg 47 the Medical iron) morning Branch tablet and 1 tablet at noon and 1 tablet in the evening. Take with meals. foLIC acid 2023-0 Yes 1mg Take 1 Unive rs 1 mg tablet 5-19 tablet by ity of 08:45: mouth in [place] [address] the Medical morning. Branch ferrous 2023-0 Yes 325mg Take 1 Univers sulfate 5-19 tablet by ity of (IRON) 325 08:45: mouth in [place] mg (65 mg 47 the Medical iron) morning Branch tablet and 1 tablet at noon and 1 tablet in the evening. Take with meals. foLIC acid 2023-0 Yes 1mg Take 1 Unive rs 1 mg tablet 5-19 tablet by ity of 08:45: mouth in [place] [address] the Medical morning. Branch ferrous 2023-0 Yes 325mg Take 1 Univers sulfate 5-19 tablet by ity of (IRON) 325 08:45: mouth in [place] mg (65 mg 47 the Medical iron) morning Branch tablet and 1 tablet at noon and 1 tablet in the evening. Take with meals. aspirin 81 2023-0 Yes 81mg Take 1 Unive rs mg EC 5-04 tablet by ity of tablet 00:00: mouth in [place] 00 the Medical morning. Branch aspirin 81 2023-0 Yes 81mg Take 1 Unive rs mg EC 5-04 tablet by ity of tablet 00:00: mouth in [place] 00 the Medical morning. Branch aspirin 81 2023-0 Yes 81mg Take 1 Unive rs mg EC 5-04 tablet by ity of tablet 00:00: mouth in [place] 00 the Medical morning. Branch aspirin 81 2023-0 Yes 81mg Take 1 Unive rs mg EC 5-04 tablet by ity of tablet 00:00: mouth in [place] 00 the Medical morning. Branch aspirin 81 2023-0 Yes 81mg Take 1 Unive rs mg EC 5-04 tablet by ity of tablet 00:00: mouth in [place] 00 the Medical morning. Branch aspirin 81 2023-0 Yes 81mg Take 1 Unive rs mg EC 5-04 tablet by ity of tablet 00:00: mouth in [place] 00 the Medical morning. Branch aspirin 81 2023-0 Yes 81mg Take 1 Unive rs mg EC 5-04 tablet by ity of tablet 00:00: mouth in [place] 00 the Medical morning. Branch aspirin 81 2023-0 Yes 81mg Take 1 Unive rs mg EC 5-04 tablet by ity of tablet 00:00: mouth in [place] 00 the Medical morning. Branch aspirin 81 2023-0 Yes 81mg Take 1 Unive rs mg EC 5-04 tablet by ity of tablet 00:00: mouth in [place] 00 the Medical morning. Branch aspirin 81 2023-0 Yes 81mg Take 1 Unive rs mg EC 5-04 tablet by ity of tablet 00:00: mouth in [place] 00 the Medical morning. Branch aspirin 81 2023-0 Yes 81mg Take 1 Unive rs mg EC 5-04 tablet by ity of tablet 00:00: mouth in [place] 00 the Medical morning. Branch aspirin 81 2023-0 Yes 81mg Take 1 Unive rs mg EC 5-04 tablet by ity of tablet 00:00: mouth in [place] 00 the Medical morning. Branch aspirin 81 2023-0 Yes 81mg Take 1 Unive rs mg EC 5-04 tablet by ity of tablet 00:00: mouth in [place] 00 the Medical morning. Branch aspirin 81 2023-0 Yes 81mg Take 1 Unive rs mg EC 5-04 tablet by ity of tablet 00:00: mouth in [place] 00 the Medical morning. Branch aspirin 81 2023-0 Yes 81mg Take 1 Unive rs mg EC 5-04 tablet by ity of tablet 00:00: mouth in [place] 00 the Medical morning. Branch aspirin 81 2023-0 Yes 81mg Take 1 Unive rs mg EC 5-04 tablet by ity of tablet 00:00: mouth in [place] 00 the Medical morning. Branch aspirin 81 3-0 Yes 81mg Take 1 Unive rs mg EC 5-04 tablet by ity of tablet 00:00: mouth in [place] 00 the Medical morning. Branch atorvastati 3-0 Yes 40mg Take 1 Univ ers n 40 mg 4-27 tablet by ity of tablet 00:00: mouth at [place] [address] bedtime. Medical Branch atorvastati 2023-0 Yes 40mg Take 1 Univ ers n 40 mg 4-27 tablet by ity of tablet 00:00: mouth at [place] [address] bedtime. Medical Branch atorvastati 2023-0 Yes 40mg Take 1 Univ ers n 40 mg 4-27 tablet by ity of tablet 00:00: mouth at [place] [address] bedtime. Medical Branch atorvastati 3-0 Yes 40mg Take 1 Univ ers n 40 mg 4-27 tablet by ity of tablet 00:00: mouth at [place] [address] bedtime. Medical Branch atorvastati 2023-0 Yes 40mg Take 1 Univ ers n 40 mg 4-27 tablet by ity of tablet 00:00: mouth at [place] [address] bedtime. Medical Branch atorvastati 3-0 Yes 40mg Take 1 Univ ers n 40 mg 4-27 tablet by ity of tablet 00:00: mouth at [place] [address] bedtime. Medical Branch atorvastati 2023-0 Yes 40mg Take 1 Univ ers n 40 mg 4-27 tablet by ity of tablet 00:00: mouth at [place] [address] bedtime. Medical Branch atorvastati 2023-0 Yes 40mg Take 1 Univ ers n 40 mg 4-27 tablet by ity of tablet 00:00: mouth at [place] [address] bedtime. Medical Branch atorvastati 2023-0 Yes 40mg Take 1 Univ ers n 40 mg 4-27 tablet by ity of tablet 00:00: mouth at [place] [address] bedtime. Medical Branch atorvastati 2023-0 Yes 40mg Take 1 Univ ers n 40 mg 4-27 tablet by ity of tablet 00:00: mouth at [place] [address] bedtime. Medical Branch atorvastati 2023-0 Yes 40mg Take 1 Univ ers n 40 mg 4-27 tablet by ity of tablet 00:00: mouth at [place] 00 bedtime. Medical Branch atorvastati 2023-0 Yes 40mg Take 1 Univ ers n 40 mg 4-27 tablet by ity of tablet 00:00: mouth at [place] 00 bedtime. Medical Branch atorvastati 2023-0 Yes 40mg Take 1 Univ ers n 40 mg 4-27 tablet by ity of tablet 00:00: mouth at [place] 00 bedtime. Medical Branch atorvastati 2023-0 Yes 40mg Take 1 Univ ers n 40 mg 4-27 tablet by ity of tablet 00:00: mouth at [place] 00 bedtime. Medical Branch atorvastati 3-0 Yes 40mg Take 1 Univ ers n 40 mg 4-27 tablet by ity of tablet 00:00: mouth at [place] 00 bedtime. Medical Branch atorvastati 2023-0 Yes 40mg Take 1 Univ ers n 40 mg 4-27 tablet by ity of tablet 00:00: mouth at [place] 00 bedtime. Medical Branch atorvastati 3-0 Yes 40mg Take 1 Univ ers n 40 mg 4-27 tablet by ity of tablet 00:00: mouth at [place] 00 bedtime. Medical Branch ibuprofen 2016-0 Yes 600mg Take 1 Unive [...] Time Observation Value Comments Source Systolic blood 2023-05-07 19:25:00 107 mm[Hg] Univer sity of pressure [place] [facility] Diastolic blood 2023-05-07 19:25:00 70 mm[Hg] Unive rsity of pressure [place] [facility] Heart rate 2023-05-07 19:25:00 54 /min Universi ty of [place] [facility] Respiratory rate 2023-05-07 19:25:00 16 /min Univ ersity of [place] [facility] Body height 2023-05-07 19:25:00 162.6 cm Universi ty of [place] [facility] Body weight 2023-05-07 19:25:00 86.592 kg Universi ty of [place] [facility] BMI 2023-05-07 19:25:00 32.77 kg/m2 Universi ty of [place] [facility] Oxygen saturation in 2023-05-07 19:25:00 98 /min University of Arterial blood by [facility] Pulse oximetry Branch Systolic blood 2023-03-09 13:52:00 110 mm[Hg] Univer sity of pressure [place] [facility] Diastolic blood 2023-03-09 13:52:00 68 mm[Hg] Unive rsity of pressure [place] [facility] Heart rate 2023-03-09 13:52:00 71 /min Universi ty of [place] [facility] Body height 2023-03-09 13:52:00 162.6 cm Universi ty of [place] [facility] Body weight 2023-03-09 13:52:00 85.957 kg Universi ty of [place] [facility] BMI 2023-03-09 13:52:00 32.53 kg/m2 Universi ty of [place] [facility] Oxygen saturation in 2023-03-09 13:52:00 99 /min University of Arterial blood by [facility] Pulse oximetry Branch Systolic blood 2019-07-02 20:30:00 137 mm[Hg] Univer sity of pressure [place] [facility] Diastolic blood 2019-07-02 20:30:00 91 mm[Hg] Unive rsity of pressure [place] [facility] Heart rate 2019-07-02 20:30:00 90 /min Universi ty of [place] [facility] Body temperature 2019-07-02 20:30:00 36.83 Wen Univ ersity of [place] [facility] Respiratory rate 2019-07-02 20:30:00 18 /min Univ ersity of [place] [facility] Body height 2019-07-02 20:30:00 162.6 cm [facility]i ty [facility] [place] [facility] Body weight 2019-07-02 20:30:00 155.13 kg [facility] BMI 2019-07-02 20:30:00 58.70 kg/m2 [facility] Procedures Procedure Date / Time Performing Clinician Source Performed INSURANCE CORRESPONDENCE 2023-04-20 05:01:00 Doctor Francisco, [facility] [place] [facility] PHYSICIAN CERTIFICATION 2023-04-07 05:01:00 Doctor Francisco [facility] STATEMENT [place] [facility] HB ECG ROUTINE & RHYTHM 2023-03-09 13:49:18 Leandra Mckeon [facility] CONSENT/REFUSAL FOR 2023-03-09 13:26:58 Doctor Francisco, [facility] DIAGNOSIS AND TREATMENT [place] [facility] REFERRAL- 2023-03-01 05:01:00 Doctor Francisco, [facility] REQUEST/RESPONSE [place] [facility] Encounters Start End Encounter Admission Attending Care Care Encounter Source Date/Time Date/Time Type Type Clinicians Facility Department ID 2023-06-19 2023-06-19 Outpatient R [facility] [id number] [facility] 13:40:00 13:40:00 LEANDRA costa o f [facility] 2023-05-30 2023-05-30 Refill [facility] [id number] Univers 00:00:00 00:00:00 Leandra MARIE 350.1.13.10 ity [place] [id number] [address] 2023-05-11 2023-05-11 Telephone [facility] [id number] Univers 00:00:00 00:00:00 Leandra MARIE 350.1.13.10 ity [place] [id number] Ri [address] 2023-05-07 2023-05-07 Office [facility] [id number] Univers 14:20:00 14:40:00 Visit Leandra MARIE 350.1.13.10 ity of [place] [id number] [address] 2023-05-07 2023-05-07 Outpatient R [facility] [id number] Univers 14:20:00 14:20:00 LEANDRA ity o f [facility] 2023-04-27 2023-04-27 Telephone [facility] [id number] Univers 00:00:00 00:00:00 Leandra MARIE 350.1.13.10 ity [place] [id number] [address] 2023-04-20 2023-04-20 Telephone [facility] [id number] Univers 00:00:00 00:00:00 Leandra MARIE 350.1.13.10 [place] [id number] [address] 2023-04-20 2023-04-20 Orders Doctor LISA [id number] [id number] Univers 00:00:00 00:00:00 Only Unassigned, HANG 350.1.13.10 ity of [place] [facility] 4.2.7.2.686 [place] as [id number] [address] 2023-04-13 2023-04-13 Telephone [facility] [id number] Univers 00:00:00 00:00:00 Leandra MARIE 350.1.13.10 [facility] 4[place] [id number] [address] 2023-04-07 2023-04-07 Orders Doctor LISA [id number] [id number] Univers 00:00:00 00:00:00 Only Unassigned, HANG 350.1.13.10 ity of [place] [facility] 4.2.7.2.686 [place] as [id number] [address] 2023-04-05 2023-04-05 Telephone [facility] [id number] Univers 00:00:00 00:00:00 Leandra ELLISTON 350.1.13.10 [place] [id number] [address] 2023-03-30 2023-03-30 Telephone [facility] [id number] Univers 00:00:00 00:00:00 Qiaconstance MARIE 350.1.13.10 [place] [id number] [address] 2023-03-29 2023-03-29 Outpatient R [facility] [id number] Univers 15:01:56 23:59:00 LEANDRA costa o f [facility] 2023-03-13 2023-03-13 [facility] [id number] Univers 00:00:00 00:00:00 Leandra MARIE 350.1.13.10 [facility] [place] [id number] [address] 2023-03-09 2023-03-09 Office [facility] 1.2.840.114 [id number] Univers 09:40:00 09:40:00 Visit [facility] MARIE 350.1.13.10 [place] [id number] [address] 2023-03-09 2023-03-09 Outpatient R [facility] [id number] Univers 09:40:00 09:16:01 LEANDRA costa o f [facility] 2023-03-09 2023-03-09 Orders Doctor LISA [id number] [id number] Univers 00:00:00 00:00:00 Only Unassigned, HANG 350.1.13.10 ity of [place] [facility] 4.2.7.2.686 Fidel as [id number] [address] 2023-03-08 2023-03-08 Outpatient [facility] 13:57:51 13:57:51 [id number] [facility] 2023-03-01 2023-03-01 Outpatient [facility] Kit 09:56:01 09:56:01 [id number] F Sylvia 2023-03-01 2023-03-01 Orders Doctor LISA 1.2.840.114 [id number] [facility] 00:00:00 00:00:00 Only Unassigned, HAGN 350.1.13.[address] [facility] 4.2.7.2.686 [place] [id number] [address] 2023-02-22 2023-02-22 Outpatient [facility] Kit 10:00:22 10:00:22 [id number] [facility] 2023-02-16 2023-02-16 Outpatient [facility] Kit 14:11:58 14:11:58 [id number] [facility] 2019-07-08 2019-07-08 [facility] [id number] [facility] 00:00:00 00:00:00 Management Sheryl Marie 350.1.13.10 ity of [place] [id number] [address] 2019-07-02 2019-07-02 [facility] [id number] [facility] 15:20:19 15:54:38 Visit Sheryl Marie 350.1.13.10 i ty of [place] [id number] [facility] 134 [facility] Results Test Description Test Time Test Comments Results Result Comments Source OCCULT BLD,FECAL,IMMUNOASSAY DIAG 2023-03-14 11:20:54 Test Item Value Reference Range Interpretation Comme nts OCCULT BLD, FECAL (test code NEGATIVE NEGATIVE UNLESS OTHERWISE INDICATED, ALL = 59035) TESTING PERFORM ED AT CLINICAL PATHOLOGY [facility], [facility]. [address] [place] [id number] PHYSICIAN ADVISOR: CORI GOMEZ M.D. CLIA NUMBER [id number] [facility] ACCREDITATION N O. [id number] PATHOLOGIST SMEAR [id number] 13:20:44 Test Item Value Reference Range Interpretation Comments DIAGNOSIS: (test (NOTE) PERIPHERAL BLOOD SMEAR code = 8200) REVIEW:Moderate microcytic, hyp ochromic anemia. Borderl ine thrombocytosis. See Comment. COMMENTS: (test (NOTE) In summary, the CBC code = 8205) shows microcyti c, hypochromic ane alberto. Mostcommonly, t his is due to iron def iciency anemia, and con current ironstudies are consistent with iron deficiency. If this does not respondto i isela therapy, then consideration c ould be given to other causes ofmicrocytic an emia. These include thalassemias or hemoglobinopath ies,certa in anemia of ch ronic diseases, defec ts of porphyrin synth esis orsevere protei n deficiency, etc . AMENDED/ADDENDUM DNR REPORT: (test code = 8402) MICROSCOPIC (NOTE) Please see a CB C dated DESCRIPTION: (test 03/01/2023 for code = 8210) hematologic par ameters. Examination of the peripheral smea r reveals a microcytic andhypochromic red cell population with moderate anemia. A fewelliptocytes , dacrocytes, and polychromatophi ls are seen withoutsig nificant target cell for mation or erythrocytosis. White bloodcells are within normal limits s howing a normal differen tial count, anormal leukocyte morphology. No dysplasia is identified a nd blastsare not s een. Platelets are b orderline increased in nu mber. (je;03/02/23) PATHOLOGIST: (test (NOTE) Luisa Orta code = 8250) Arpit Gomez (electronically signed) Jose LuisomateChely Board of Pathol ogy with Subspecialty Certification, Hematology CPT: (test code = 83918 8400) WBC (test code = 4.1 K/UL 3.5-11.0 1001) RBC (test code = 3.91 M/UL 3.80-5.40 1002) HEMOGLOBIN (test 8.7 G/DL 11.5-15.5 L code = 1003) HEMATOCRIT (test 30.2 % 34.0-45.0 L code = 1004) MCV (test code = 77.2 fL 80.0-99.0 L 1005) MCH (test code = 22.3 PG 25.0-33.0 L 1006) MCHC (test code = 28.8 G/DL 31.0-36.0 L 1007) RDW (test code = 22.3 % 11.5-15.0 H 1038) NEUTROPHILS (test 43.6 % AUTOMATED DIFFERENTIAL code = 1008) CONFIRMED WITH MANUAL SLIDE REVIEW. LYMPHOCYTES (test 35.9 % code = 1010) MONOCYTES (test 18.1 % code = 1011) EOSINOPHILS (test 0.7 % code = 1012) BASOPHILS (test 1.5 % code = 1013) IMMATURE 0.2 % GRANULOCYTES (test code = 1036) NUCLEATED RBCS 0.0 /100 See_Comment [Automated m essage] The (test code = 1065) WBC'S system [facility] generated this result tra nsmitted reference range : 0.0. The reference r nader was not used to int erpret this result as normal/abnormal . PLATELET COUNT 407 K/UL 130-400 H (test code = 1015) ABSOLUTE 1.78 K/UL 1.50-7.50 NEUTROPHILS (test code = 1066) ABSOLUTE 1.47 K/UL 1.00-4.00 LYMPHOCYTES (test code = 1067) ABSOLUTE MONOCYTES 0.74 K/UL 0.20-1.00 (test code = 1068) ABSOLUTE 0.03 K/UL 0.00-0.50 EOSINOPHILS (test code = 1040) ABSOLUTE BASOPHILS 0.06 K/UL 0.00-0.20 (test code = 1069) ABS IMMATURE 0.01 K/UL 0.00-0.10 GRANULOCYTES (test code = 1020) ABS NUCLEATED RBCS 0.00 K/UL 0.00-0.11 (test code = 14892) COMMENTS (test code (NOTE) MARKED ANISOCYTOSIS FEW = 1016) ELLIPTOCYTES MO DERATE HYPOCHROMASIA S LIGHT MICROCYTOSIS SL IGHT POIKILOCYTOSIS SLIGHT POLYCHROMASIA F EW TEAR DROP CELLS PLAT ELETS APPEAR INCREASE D UNLESS OTHERWISE INDIC ATED, ALL TESTING PERFORM ED AT CLINICAL PATHOL [employer] [facility], [address] [facility] [place] [address] LABORATORY DIRE CTOR: HIGINIO HEWITT M.D. CLIA NUMBER [id number] [facility] [place] [id number] HAPTOGLOBIN, [id number] 13:10:19 Test Item Value Reference Range Interpretation Comments HAPTOGLOBIN, QUANT (test code = 78 MG/DL 32-197 38280) [id number] 07:59:28 Test Item Value Reference Range Interpretation Comments LDH (test code = 2224) 178 U/L 135-214 RETICULOCYTE WITH [id number] 23:14:06 Test Item Value Reference Range Interpretation Comments RETICULOCYTE COUNT (test code = 3.68 % 0.80-2.40 H 1018) ABSOLUTE RETICULOCYTE (test code = 131.0 K/UL 32.0-105.0 H 41555) CBC W/AUTO DIFF WITH [id number] 23:14:06 Test Item Value Reference Range Interpretation Comments WBC (test code = 4.4 K/UL 3.5-11.0 1001) RBC (test code = 3.69 M/UL 3.80-5.40 L 1002) HEMOGLOBIN (test 7.9 G/DL 11.5-15.5 L code = 1003) HEMATOCRIT (test 28.1 % 34.0-45.0 L code = 1004) MCV (test code = 76.2 fL 80.0-99.0 L 1005) MCH (test code = 21.4 PG 25.0-33.0 L 1006) MCHC (test code = 28.1 G/DL 31.0-36.0 L 1007) RDW (test code = 21.6 % 11.5-15.0 H 1038) NEUTROPHILS (test 53.9 % AUTOMATED code = 1008) DIFFERENTIAL CONFIRMED WITH MANUAL SLIDE REVIEW. LYMPHOCYTES (test 37.0 % code = 1010) MONOCYTES (test code 7.7 % = 1011) EOSINOPHILS (test 0.5 % code = 1012) BASOPHILS (test code 0.7 % = 1013) IMMATURE 0.2 % GRANULOCYTES (test code = 1036) NUCLEATED RBCS (test 0.0 /100 See_Comment [Autom ated message] code = 1065) WBC'S The system [employer] (V3[employer]) generated this result transmitted ref erence range: 0.0. The reference range was not used to int erpret this result as normal/abnormal . PLATELET COUNT (test 436 K/UL 130-400 H code = 1015) ABSOLUTE NEUTROPHILS 2.38 K/UL 1.50-7.50 (test code = 1066) ABSOLUTE LYMPHOCYTES 1.63 K/UL 1.00-4.00 (test code = 1067) ABSOLUTE MONOCYTES 0.34 K/UL 0.20-1.00 (test code = 1068) ABSOLUTE EOSINOPHILS 0.02 K/UL 0.00-0.50 (test code = 1040) ABSOLUTE BASOPHILS 0.03 K/UL 0.00-0.20 (test code = 1069) ABS IMMATURE 0.01 K/UL 0.00-0.10 GRANULOCYTES (test code = 1020) ABS NUCLEATED RBCS 0.00 K/UL 0.00-0.11 (test code = 96035) COMMENTS (test code (NOTE) MODERAT E = 1016) ANISOCYTOSIS MA RKED HYPOCHROMASIA SLIGHT MICROCYTOSIS SL IGHT POLYCHROMASIA F EW SCHISTOCYTES PLATELETS APPEA R INCREASED VITAMIN B 12 AND FOLIC [id number] 04:46:23 Test Item Value Reference Range Interpretation Comments VITAMIN B-12 (test 394 PG/ML 200-950 code = 2840) FOLIC ACID (test 17.1 UG/L SEE BELOW INTE RPRETIVE code = 2695) RANGES DE FICIENCY . . . . . . . . . . . . . . . UG/L <4.0 POSSIBLE DEFICIENCY. . . . . . . . . . . UG/L 4. 0-5.9 SUFFICIENT . . . . . . . . . . . . . . . UG/L >=6.0 [id number] 04:46:23 Test Item Value Reference Range Interpretation Comments FERRITIN (test code = 2074) 114 NG/ML 13-200 IRON BINDING CAPACITY AND IRON AND % [id number] 23:59:13 Test Item Value Reference Range Interpretation Comments IRON, SERUM (test code = 2222) 25 UG/DL 37-145 L UNSATURATED IBC (test code = 18894) 445 UG/DL 112-347 H CALC TOTAL IBC (test code = 2076) 470 UG/DL 250-450 H CALC % IRON SAT (test code = 2078) 5 % 20-50 L [id number] 23:58:52 Test Item Value Reference Range Interpretation Comments HOMOCYSTEINE (test 15 UMOL/L <12 H UNLESS O THERWISE code = 4288) INDICATED, [facility] [address] [place] [address] KAYLAH LEON DIRECTOR: Arpit MONTGOMERY MANDY NUMBER [id number] CAP ACCREDITATION [place] O. [id number] 23:58:52 Test Item Value Reference Range Interpretation Comments TRANSFERRIN (test code = 4936) 377 MG/DL 200-360 H MICROSCOPIC [id number] 04:53:02 Test Item Value Reference Range Interpretation Comments WHITE BLOOD CELLS (test 0-5 /HPF 0-5 code = 1513) RED BLOOD CELLS (test 0-2 /HPF 0-2 PLEA SE NOTE: NEW code = 1514) REFERENCE RANGE EFFECTIVE 01/15. EPITHELIAL CELLS (test 6-10 /HPF 0-10 code = 45192) BACTERIA (test code = >3+ NONE SEEN 1515) CRYSTALS (test code = PRESENT NONE SEEN A CALCI UM OXALATE 1516) CRYSTALS CASTS, HYALINE (test TRACE NONE-TRACE code = 1517) CBC W/AUTO DIFF WITH [id number] 15:50:45 Test Item Value Reference Range Interpretation Comments WBC (test code = 4.6 K/UL 3.5-11.0 1001) RBC (test code = 3.65 M/UL 3.80-5.40 L 1002) HEMOGLOBIN (test 7.7 G/DL 11.5-15.5 L code = 1003) HEMATOCRIT (test 26.9 % 34.0-45.0 L code = 1004) MCV (test code = 73.7 fL 80.0-99.0 L 1005) MCH (test code = 21.1 PG 25.0-33.0 L 1006) MCHC (test code = 28.6 G/DL 31.0-36.0 L 1007) RDW (test code = 19.3 % 11.5-15.0 H 1038) NEUTROPHILS (test 41.3 % AUTOMATED code = 1008) DIFFERENTIAL CONFIRMED WITH MANUAL SLIDE REVIEW. LYMPHOCYTES (test 42.9 % code = 1010) MONOCYTES (test code 13.0 % = 1011) EOSINOPHILS (test 1.5 % code = 1012) BASOPHILS (test code 1.1 % = 1013) IMMATURE 0.2 % GRANULOCYTES (test code = 1036) NUCLEATED RBCS (test 0.0 /100 See_Comment [Autom ated message] code = 1065) WBC'S The system [employer] (V3D) generated this result transmitted ref erence range: 0.0. The reference range was not used to int erpret this result as normal/abnormal . PLATELET COUNT (test 299 K/UL 130-400 code = 1015) ABSOLUTE NEUTROPHILS 1.88 K/UL 1.50-7.50 (test code = 1066) ABSOLUTE LYMPHOCYTES 1.95 K/UL 1.00-4.00 (test code = 1067) ABSOLUTE MONOCYTES 0.59 K/UL 0.20-1.00 (test code = 1068) ABSOLUTE EOSINOPHILS 0.07 K/UL 0.00-0.50 (test code = 1040) ABSOLUTE BASOPHILS 0.05 K/UL 0.00-0.20 (test code = 1069) ABS IMMATURE 0.01 K/UL 0.00-0.10 GRANULOCYTES (test code = 1020) ABS NUCLEATED RBCS 0.00 K/UL 0.00-0.11 (test code = 40047) COMMENTS (test code (NOTE) MODERAT E = 1016) ANISOCYTOSIS MO DERATE HYPOCHROMASIA MODERATE MICROC YTOSIS PLATELETS APPEA R NORMAL TSH, THIRD [id number] 10:17:10 Test Item Value Reference Range Interpretation Comments TSH, THIRD GENERATION (test code 4.160 UIU/ML 0.400-4.100 H = 2821) [id number] 08:48:32 Test Item Value Reference Range Interpretation Comments NT-proBNP <50 PG/ML SEE BELOW If NT-ProBNP i s less than 300 (test code = PG/ML, heart fa ilure is unlikely 69079) for allages. Age............ .....Heart Failure Likely <50 Years.......... .>=450 PG/ML 50-75 Years.... .....>=900 PG/ML > 75 Years..... .....>=1800 PG/ML Methodology: Ro clary Anais [employer] Immunoassay [facility] has important patho logy staff changes effecti ve 12/20/2022. New patholo gy staff will provide uninter rupted, excellent patient care an d clinical consultation. S ee URL: [email or web address]. UNLESS OTHERWIS E INDICATED, ALL TESTING PERFORM ED AT CLINICAL PATHOLOGY [facility] [employer] [facility]. [address] [place] [id number] LABORATORY DIRE CTOR: Arpit MURILLO MANDY NUMBER [id number] [facility] [place]. [id number] COMPREHENSIVE METABOLIC [id number] 06:00:01 Test Item Value Reference Range Interpretation Comments GLUCOSE (test code = 85 MG/DL 70-99 2216) BUN (test code = 7 MG/DL 6-20 2207) CREATININE (test 0.71 MG/DL 0.60-1.30 code = 2214) eGFR (2020 CKD-EPI) 113 >60 (test code = 53605) ML/MIN/1.73 CALC BUN/CREAT (test 10 RATIO 6-28 code = 2235) SODIUM (test code = 141 MEQ/L 018-480 2637) POTASSIUM (test code 4.2 MEQ/L 3.5-5.4 = 2227) CHLORIDE (test code 106 MEQ/L 95-107 = 221) CARBON DIOXIDE (test 24 MEQ/L 19-31 code = 2206) CALCIUM (test code = 9.2 MG/DL 8.5-10.5 2208) PROTEIN, TOTAL (test 7.4 G/DL 6.1-8.3 code = 2229) ALBUMIN (test code = 4.2 G/DL 3.5-5.2 2200) CALC GLOBULIN (test 3.2 G/DL 1.9-3.7 code = 2240) CALC A/G RATIO (test 1.3 RATIO 1.0-2.6 code = 2234) BILIRUBIN, TOTAL 0.2 MG/DL See_Comment [Automated message] (test code = 2207) The syste m which generated this result transmit marti reference range : <=1.2. The refe rence range was not u sed to interpret th is result as normal/abnormal . ALKALINE PHOSPHATASE 53 U/L 40-112 (test code = 2204) AST (test code = 32 U/L 9-40 2217) ALT (test code = 31 U/L 40 2218) LIPID [id number] 06:00:01 Test Item Value Reference Range Interpretation [...] MOREINFORMATION , SEE CLIENT ANNOUNCE MENT AT [email or web address] RATIO LDL/HDL 0.82 RATIO <3.22 (test code = 2238) HEMOGLOBIN [id number] 05:05:23 Test Item Value Reference Range Interpretation Comments HEMOGLOBIN A1c (test code = 51172) 5.3 % 4.2-5.6 Notes Date/Time Note Provider Source 2023-05-31 Formatting of this note might be differe nt from the original. Adilene Castellanos RN [facility] 09:51:33-00:00 NACHO 05/07/23 NOV 06/19/23 " Dizziness and orthostatic hypotension-likely autonomic dysfunction since TIA event. Advised to increase water intake, avoid caffeine intake, and compression stockings. Fall precautions. Since there ravi s been no improvement, we wi ll start midodrine 2.5 mg 3 times daily. Advised to check blood pressure daily for further adjustment. Discussed the nature of this condition. EKG--March 09, 2023-reviewed by me and discussed w ith patient NSR, low voltage" Electronically signed by Adilene Castellanos RN at 9:57 AM CDT 2023-05-11 Formatting of this note might be differe nt from the original. Olive Gee MA [facility] 16:17:58-00:00 Received medical records reshawanda caputo from [facility], will send to [employer] for them to execute. Reach out to [employer] for any updates. Electronically signed by Olive Gee MA a t 05/11/2023 4:20 PM CDT
[2023-06-01] MEDS ORDERED: FOLIC ACID 5 MG/ML VIAL ONE (23:26)
[2023-06-01] MEDS ORDERED: NA CHLORIDE 0.9% 1,000 ML ONE (23:26)
[2023-06-01 23:37] LABS: Absolute Lymphocytes (CBC) 2.1 K/uL (0.7-4.9); Hematocrit 38.4 % (36.0-45.0); Lymphocytes % 39.9 % (15.3-44.8); MCV 89.9 fL (80-100); MPV 8.9 fL (7.6-11.3); Platelets 223 thou/uL (152-406); RBC Red Blood Cell Count 4.27 M/uL (3.86-4.86)
[2023-06-01 23:39] LABS: Protime INR 1.02
[2023-06-01 23:54] LABS: ALT/SGPT 128 U/L (13-56); AST/SGOT 64 U/L (15-37); Albumin 3.8 g/dL (3.4-5.0); Alkaline Phosphatase 75 U/L (45-117); BUN Blood Urea Nitrogen 8 mg/dL (7-18); Bicarbonate 27 mEq/L (21-32); Bilirubin Direct 0.1 mg/dL (0-0.2); Bilirubin Indirect, Calculated 0.2 mg/dL (0.2-0.8); Bilirubin Total 0.3 mg/dL (0.2-1.0); Glomerular Filtration Rate 94 ml/min (=/>90); Glucose Level 82 mg/dL (74-106); Magnesium 2.3 mg/dL (1.6-2.4); NT PRO-BNP 52 pg/mL (<125); Potassium 3.9 mEq/L (3.5-5.1); Protein, Total 7.8 g/dL (6.4-8.2); Sodium Level 140 mEq/L (136-145)
[2023-06-02 00:11] LABS: C-Reactive Protein < 2.90 mg/L (<3.00); Troponin High Sensitivity < 3.0 pg/mL (<58.9)
--- NOTE | 2023-06-02 00:26 | ER ---
Nurse's Notes [facility] Name: Larry Morton Age: 37 yrs Sex: Female : 1985 Arrival Date: 06/01/2023 Time: 22:33 Bed 3 Private MD: Diagnosis: Dizziness and giddiness;Weakness;Bradycardia, unspecified;Transient cerebral ischemic attack, unspecified Presentation: 06/01 23:05 Chief complaint: Patient states: I have had a headache for the past 8 hours and started jb4 to have dizziness and numbness that comes and goes to my left arm. Coronavirus screen: At this time, the client does not indicate any symptoms associated with coronavirus-19. Ebola Screen: No symptoms or risks identified at this time. Initial Sepsis Screen: Does the patient meet any 2 criteria? No. Patient's initial sepsis screen is negative. Does the patient have a suspected source of infection? No. Patient's initial sepsis screen is negative. Risk Assessment: Do you want to hurt yourself or someone else? Patient reports no desire to harm self or others. Onset of symptoms was June 01, 2023. Transition of care: patient was not received from another setting of care. 23:05 Method Of Arrival: Ambulatory jb4 23:05 Acuity: CELESTINO 3 jb4 Triage Assessment: 23:34 Pain:. jw7 06/02 00:31 Headache History: Denies prior headaches. General: Appears in no apparent distress. jw7 comfortable, Behavior is calm, cooperative. Pain: Pain began 8 hours ago Also complains of no other associated symptoms. DIRECTOR OF PULMONARY UNIT: 00:31 LMP 05/28/2023 jw7 Historical: - Allergies: 06/01 23:08 No Known Allergies; jb4 - Home Meds: 23:08 atorvastatin oral [Active]; midodrine oral [Active]; jb4 - PMHx: 23:08 Anemia; CVA; hypotension; high cholesterol; jb4 - PSHx: 23:08 section; Gastric Bypass; jb4 - Immunization history:: Adult Immunizations up to date. - Social history:: Smoking status: Patient denies any tobacco usage or history of. Screenin:11 [facility] ED Fall Risk Assessment (Adult) History of falling in the last 3 months, jb4 including since admission No falls in past 3 months (0 pts) Confusion or Disorientation No (0 pts) Score/Fall Risk Level 0 - 2 = Low Risk Oriented to surroundings, Maintained a safe environment. Abuse screen: Denies threats or abuse. Nutritional screening: No deficits noted. Tuberculosis screening: No symptoms or risk factors identified. Assessment: 23:11 General: Appears in no apparent distress. comfortable, Behavior is calm, cooperative, jb4 appropriate for age. Pain: Complains of pain in Headache Pain does not radiate. Pain currently is 7 out of 10 on a pain scale. Neuro: Level of Consciousness is awake, alert, obeys commands, Oriented to person, place, time, situation. Cardiovascular: Patient's skin is warm and dry. Respiratory: Airway is patent Respiratory effort is even, unlabored, Respiratory pattern is regular, symmetrical. GI: No signs and/or symptoms were reported involving the gastrointestinal system. : No signs and/or symptoms were reported regarding the genitourinary system. EENT: No signs and/or symptoms were reported regarding the EENT system. Derm: Skin is intact, Skin is pink, warm \T\ dry. Musculoskeletal: Circulation, motion, and sensation intact. Range of motion: intact in all extremities. 06/02 00:19 Reassessment: Patient appears in no apparent distress at this time. No changes from [facility] previously documented assessment. Patient and/or family updated on plan of care and expected duration. Pain level reassessed. Patient is alert, oriented x 3, equal unlabored respirations, skin warm/dry/pink. 00:32 Reassessment: Patient appears in no apparent distress at this time. No changes from 7 previously documented assessment. Patient and/or family updated on plan of care and expected duration. Pain level reassessed. Patient is alert, oriented x 3, equal unlabored respirations, skin warm/dry/pink. Patient states symptoms have not improved. 01:28 Reassessment: Patient appears in no apparent distress at this time. Patient and/or jb4 family updated on plan of care and expected duration. Pain level reassessed. Patient is alert, oriented x 3, equal unlabored respirations, skin warm/dry/pink. Vital Signs: 06/01 23:05 BP 100 / 65; Pulse 54; Resp 16; Temp 97.7(O); Pulse Ox 99% ; Weight 78 kg (M); Pain jb4 7/10; 23:15 BP 100 / 65; Pulse 54; Resp 13 S; Pulse Ox 100% on R/A; jw7 06/02 00:00 BP 103 / 59; Pulse 48; Resp 10 S; Pulse Ox 100% on R/A; jw7 01:28 BP 109 / 71; Pulse 63; Resp 14; Pulse Ox 100% on R/A; jb4 06/01 23:05 Pain Scale: Adult [facility] NIH Stroke Scale Scores: 01:47 NIHSS Score: 0 [facility] ED Course: 06/01 22:34 Patient arrived in ED. jj6 22:59 Luis Carlos Amos MD is Attending Physician. jase 23:05 Lonnie Ortiz, RN is Primary Nurse. jb4 23:08 Triage completed. jb4 23:08 Arm band placed on right wrist. jb4 23:11 Patient has correct armband on for positive identification. Bed in low position. Call jb4 light in reach. Side rails up X 1. Client placed on continuous cardiac and pulse oximetry monitoring. NIBP monitoring applied. 23:32 Initial lab(s) drawn, by me, sent to lab. EKG done, by ED staff, reviewed by Luis Carlos Amos MD. Inserted saline lock: 20 gauge in left antecubital area, using aseptic technique. Blood collected. 23:33 Basic Metabolic Panel Sent. jw7 23:33 CBC with Diff Sent. jw7 23:33 LFT's Sent. jw7 23:33 Magnesium Sent. jw7 23:33 NT PRO-BNP Sent. jw7 23:33 PT-INR Sent. jw7 23:33 Troponin HS Sent. jw7 23:33 CRP Sent. jw7 23:48 XRAY Chest (1 view) In Process Unspecified. EDMS 06/02 00:24 Umesh Hawkins MD is Hospitalizing Provider. jase 01:01 CT Head Brain wo Cont In Process Unspecified. EDMS 01:01 CT Head Angio In Process Unspecified. EDMS 01:03 CT Neck Angio In Process Unspecified. EDMS 02:20 No provider procedures requiring assistance completed. Patient admitted, IV remains in vc1 place. Administered Medications: 06/01 23:33 Drug: foLIC Acid IVPB 1 mg Route: IVPB; Site: left antecubital; [facility] 06/02 00:27 Follow up: Response: No adverse reaction; IV Status: Completed infusion; IV Intake: 1ml jw7 06/01 23:33 Drug: NS 0.9% IV 1000 ml Route: IV; Rate: 1 bolus; Site: left antecubital; jw7 06/02 00:31 Follow up: Response: No adverse reaction; No change in condition; IV Status: Completed jw7 infusion; IV Intake: 1000ml 02:11 Drug: Aspirin PO Chewable Tablet 81 mg Route: PO; jb4 02:11 Drug: Clopidogrel PO 75 mg Route: PO; jb4 Medication: 06/01 23:11 VIS not applicable for this client. jb4 Intake: 06/02 00:27 IV: 1ml; Total: 1ml. jw7 00:31 IV: 1000ml; Total: 1001ml. jw7 Outcome: 00:25 Decision to Hospitalize by Provider. jase 02:20 Admitted to Med/surg accompanied by nurse, via wheelchair, room 214. vc1 02:20 Condition: good 02:20 Instructed on the need for admit. 02:20 Patient left the ED. vc1 NIH Stroke Scale - NIH Stroke Score Date: 06/02/2023 Time: 01:47 Total Score = 0 10. Dysarthria (speech clarity - read or repeat words) - 0(Normal) 11. Extinction and Inattention (visual/tactile/auditory/spatial/personal) - 0(No abnormality) 1a. Level of Consciousness (LOC) - 0(Alert) 1b. Level of Consciousness (LOC) (Month \T\ Age) - 0(Both) 1c. LOC Commands (Open \T\ Closes Eyes/Chemical Packager) - 0(Both) 2. Best Gaze (Lateral Gaze Paresis) - 0(Normal) 3. Visual Field Loss - 0(No visual loss) 4. Facial Palsy - 0(Normal) 5a. Left Arm: Motor (10-second hold) - 0(No drift) 5b. Right Arm: Motor (10-second hold) - 0(No drift) 6a. Left Leg: Motor (5-second hold - always test supine) - 0(No drift) 6b. Right Leg: Motor (5-second hold - always test supine) - 0(No drift) 7. Limb Ataxia (finger/nose \T\ heel/terry - test with eyes open) - 0(Absent) 8. Sensory Loss (pinprick arms/legs/face) - 0(Normal) 9. Best Language: Aphasia (description/naming/reading) - 0(No aphasia) Initials: jw7 Signatures: Dispatcher [employer] EDLuis Carlos Anand MD MD cha Bryson, James, RN RN jb4 Gayatri Linn jj6 Mindi Newton RN RN vc1 Kallie Cage RN RN jw7 Corrections: (The following items were deleted from the chart) 06/01 23:11 23:08 Home Meds: Midrin Oral; jb4 jb4 23: 23:08 PMHx: Hypertensive disorder; jb4 jb4 23:32 23:00 BP 100 / 65; Pulse 54bpm; Resp 17bpm; Spontaneous; Pulse Ox 100% RA; jw7 jw7 06/02 00:19 06/01 23:15 BP 100 / 65; Pulse 54bpm; Resp 17bpm; Spontaneous; Pulse Ox 100% jw7 RA; jw7
--- NOTE | 2023-06-02 00:26 | EDPHYS ---
Physician Documentation [facility] Name: Larry Morton Age: 37 yrs Sex: Female : 1985 Arrival Date: 06/01/2023 Time: 22:33 Bed 3 Private MD: ED Physician Luis Carlos Amos HPI: 06/02 00:19 This 37 yrs old Black Female presents to ER via Ambulatory with complaints of [facility] Dizziness, Headache, Numbness Of Arm. 00:19 The patient presents with dizziness, generalized weakness, lightheadedness. 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 - Social history:: Smoking status: Patient denies any tobacco usage or history of. ROS: 06/02 00:19 Constitutional: Negative for fever, chills, and weight loss, Eyes: Negative for injury, jase pain, redness, and discharge, ENT: Negative for injury, pain, and discharge, Neck: Negative for injury, pain, and swelling, Cardiovascular: Negative for chest pain, palpitations, and edema, Respiratory: Negative for shortness of breath, cough, wheezing, and pleuritic chest pain, Abdomen/GI: Negative for abdominal pain, nausea, vomiting, diarrhea, and constipation, Back: Negative for injury and pain, : Negative for injury, bleeding, discharge, and swelling, MS/Extremity: Negative for injury and deformity, Skin: Negative for injury, rash, and discoloration, Psych: Negative for depression, anxiety, suicide ideation, homicidal ideation, and hallucinations, Allergy/Immunology: Negative for hives, rash, and allergies, Endocrine: Negative for neck swelling, polydipsia, polyuria, polyphagia, and marked weight changes, Hematologic/Lymphatic: Negative for swollen nodes, abnormal bleeding, and unusual bruising. Neuro: Positive for tingling, of the left arm. Exam: 00:19 Radiologist reports: nad [facility] 00:19 Constitutional: This is a well developed, well nourished patient who is awake, alert, and in no acute distress. Head/Face: Normocephalic, atraumatic. Eyes: Pupils equal round and reactive to light, extra-ocular motions intact. Lids and lashes normal. Conjunctiva and sclera are non-icteric and not injected. Cornea within normal limits. Periorbital areas with no swelling, redness, or edema. ENT: Nares patent. No nasal discharge, no septal abnormalities noted. Tympanic membranes are normal and external auditory canals are clear. Oropharynx with no redness, swelling, or masses, exudates, or evidence of obstruction, uvula midline. Mucous membranes moist. Neck: Trachea midline, no thyromegaly or masses palpated, and no cervical lymphadenopathy. Supple, full range of motion without nuchal rigidity, or vertebral point tenderness. No Meningismus. Chest/axilla: Normal chest wall appearance and motion. Nontender with no deformity. No lesions are appreciated. Cardiovascular: Regular rate and rhythm with a normal S1 and S2. No gallops, murmurs, or rubs. Normal PMI, no JVD. No pulse deficits. Respiratory: Lungs have equal breath sounds bilaterally, clear to auscultation and percussion. No rales, rhonchi or wheezes noted. No increased work of breathing, no retractions or nasal flaring. Abdomen/GI: Soft, non-tender, with normal bowel sounds. No distension or tympany. No guarding or rebound. No evidence of tenderness throughout. Back: No spinal tenderness. No costovertebral tenderness. Full range of motion. Skin: Warm, dry with normal turgor. Normal color with no rashes, no lesions, and no evidence of cellulitis. MS/ Extremity: Pulses equal, no cyanosis. Neurovascular intact. Full, normal range of motion. Neuro: Awake and alert, GCS 15, oriented to person, place, time, and situation. Cranial nerves II-XII grossly intact. Motor strength 5/5 in all extremities. Sensory grossly intact. Cerebellar exam normal. Normal gait. Psych: Awake, alert, with orientation to person, place and time. Behavior, mood, and affect are within normal limits. 00:19 ECG was reviewed by the Attending Physician. Vital Signs: 06/01 23:05 BP 100 / 65; Pulse 54; Resp 16; Temp 97.7(O); Pulse Ox 99% ; Weight 78 kg (M); Pain jb4 7/10; 23:15 BP 100 / 65; Pulse 54; Resp 13 S; Pulse Ox 100% on R/A; 7 06/02 00:00 BP 103 / 59; Pulse 48; Resp 10 S; Pulse Ox 100% on R/A; jw7 01:28 BP 109 / 71; Pulse 63; Resp 14; Pulse Ox 100% on R/A; jb4 06/01 23:05 Pain Scale: Adult jb4 NIH Stroke Scale Scores: 01:47 NIHSS Score: 0 7 MDM: 06/01 22:59 Patient medically screened. [facility] 06/02 00:27 Differential diagnosis: CVA, TIA, metabolic disorder. Differential diagnosis: cardiac jase arrhythmia, CVA, generalized weakness, GI bleed, hypovolemia, idiopathic dizziness, near-syncope, TIA, vertigo. Data reviewed: vital signs, nurses notes, lab test result(s), EKG, radiologic studies, CT scan, plain films. Consideration of Admission/Observation Patient was admitted/placed on observation. Escalation of care including admission/observation considered. I considered the following discharge prescriptions or medication management in the emergency department Medications were administered in the Emergency Department. See MAR. Independent interpretation of the following test(s) in the Emergency Department EKG: See my EKG interpretation above. Test considered but Not performed: MRI: no mri. Historians other than the Patient: Family Member: son , uninformed. Care significantly affected by the following chronic conditions: anemia, cva,, hypotension, high cholesterol. Counseling: I had a detailed discussion with the patient and/or guardian regarding: the historical points, exam findings, and any diagnostic results supporting the discharge/admit diagnosis, lab results, radiology results, the need for further work-up and treatment in the hospital. 06/01 23:09 Order name: Basic Metabolic Panel; Complete Time: 00:18 [facility] 06/01 23:09 Order name: CBC with Diff; Complete Time: 00:18 [facility] 06/01 23:09 Order name: LFT's; Complete Time: 00:18 [facility] 06/01 23:09 Order name: Magnesium; Complete Time: 00:18 [facility] 06/01 23:09 Order name: NT PRO-BNP; Complete Time: 00:18 [facility] 06/01 23:09 Order name: PT-INR; Complete Time: 00:18 [facility] 06/01 23:09 Order name: Troponin HS; Complete Time: 00:18 [facility] 06/01 23:09 Order name: CRP; Complete Time: 00:18 [facility] 06/02 00:55 Order name: Urinalysis w/ reflexes EDID 06/02 00:55 Order name: Urinalysis w/ reflexes EDID 08 00:55 Order name: Basic Metabolic Panel EDID 08 00:55 Order name: Basic Metabolic Panel EDID 06/02 00:55 Order name: CBC with Automated Diff EDID 06/02 00:55 Order name: CBC with Automated Diff EDID 06/02 00:55 Order name: Lipid Profile EDID 06/02 00:55 Order name: Lipid Profile [facility] 06/02 00:55 Order name: Magnesium [facility] 06/02 00:55 Order name: Magnesium [facility] 06/01 23:09 Order name: XRAY Chest (1 view) [facility] 06/01 23:09 Order name: CT Head Brain wo Cont [facility] 06/01 23:09 Order name: CT Head Angio [facility] 06/01 23:09 Order name: CT Neck Angio [facility] 06/01 23:09 Order name: EKG; Complete Time: 23:10 [facility] 06/02 00:55 Order name: CONS Physician Consult [facility] 06/02 00:55 Order name: Heart Healthy [facility] 06/01 23:09 Order name: Cardiac monitoring; Complete Time: 23:33 [facility] 06/01 23:09 Order name: EKG - Nurse/Tech; Complete Time: 23:33 [facility] 06/01 23:09 Order name: IV Saline Lock; Complete Time: 23:33 [facility] 06/01 23:09 Order name: Labs collected and sent; Complete Time: 23:33 [facility] 06/01 23:09 Order name: O2 Per Protocol; Complete Time: 23:33 [facility] 06/01 23:09 Order name: O2 Sat Monitoring; Complete Time: 23:33 [facility] EC:19 Rate is 51 beats/min. Rhythm is regular. QRS [place] is Normal. SC interval is normal. QRS jase interval is normal. QT interval is normal. No Q waves. T waves are Normal. No ST changes noted. Clinical impression: Sinus bradycardia and No evidence of ischemia. Interpreted by me. Reviewed by me. Administered Medications: 06/01 23:33 Drug: foLIC Acid IVPB 1 mg Route: IVPB; Site: left antecubital; jw7 06/02 00:27 Follow up: Response: No adverse reaction; IV Status: Completed infusion; IV Intake: 1ml 7 06/01 23:33 Drug: NS 0.9% IV 1000 ml Route: IV; Rate: 1 bolus; Site: left antecubital; jw7 06/02 00:31 Follow up: Response: No adverse reaction; No change in condition; IV Status: Completed jw7 infusion; IV Intake: 1000ml 02:11 Drug: Aspirin PO Chewable Tablet 81 mg Route: PO; jb4 02:11 Drug: Clopidogrel PO 75 mg Route: PO; jb4 Disposition Summary: 06/02/23 00:25 Hospitalization Ordered Hospitalization Status: Observation jase Provider: Umesh Hawkins cha Location: Telemetry/MedSurg (observation) jase Condition: Stable jase Problem: new jase Symptoms: have improved jase Bed/Room Type: Standard jase Room Assignment: 214(06/02/23 01:08) eb1 Diagnosis - Dizziness and giddiness jase - Weakness jase - Bradycardia, unspecified jase - Transient cerebral ischemic attack, unspecified jase Forms: - Medication Reconciliation Form jsae - SBAR form jase - Leadership Thank You Letter jase NIH Stroke Scale - NIH Stroke Score Date: 06/02/2023 Time: 01:47 Total Score = 0 10. Dysarthria (speech clarity - read or repeat words) - 0(Normal) 11. Extinction and Inattention (visual/tactile/auditory/spatial/personal) - 0(No abnormality) 1a. Level of Consciousness (LOC) - 0(Alert) 1b. Level of Consciousness (LOC) (Month \T\ Age) - 0(Both) 1c. LOC Commands (Open \T\ Closes Eyes/Configuration Analyst) - 0(Both) 2. Best Gaze (Lateral Gaze Paresis) - 0(Normal) 3. Visual Field Loss - 0(No visual loss) 4. Facial Palsy - 0(Normal) 5a. Left Arm: Motor (10-second hold) - 0(No drift) 5b. Right Arm: Motor (10-second hold) - 0(No drift) 6a. Left Leg: Motor (5-second hold - always test supine) - 0(No drift) 6b. Right Leg: Motor (5-second hold - always test supine) - 0(No drift) 7. Limb Ataxia (finger/nose \T\ heel/terry - test with eyes open) - 0(Absent) 8. Sensory Loss (pinprick arms/legs/face) - 0(Normal) 9. Best Language: Aphasia (description/naming/reading) - 0(No aphasia) Initials: jw7 Signatures: Dispatcher [employer] [facility] Luis Carlos Amos MD MD cha Bryson, James RN RN jb4 Yaz Leal RN RN eb1 Kallie Cage RN RN jw7 Corrections: (The following items were deleted from the chart) 06/01 23:11 23:08 Home Meds: Midrin Oral; [facility] jb4 23:11 23:08 PMHx: Hypertensive disorder; [facility] jb 06/02 00:55 06/01 23:10 Urinalysis+U.LAB.BRZ ordered. [facility] 06/02 01:08 00:25 jase johnson
[2023-06-02] MEDS ORDERED: ONDANSETRON 4 MG/2 ML VIAL IV PRN (00:52)
[2023-06-02] MEDS ORDERED: ACETAMINOPHEN 500 MG TAB PO PRN (00:52)
[2023-06-02] MEDS ORDERED: ALPRAZOLAM 0.25 MG TABLET PO PRN (00:52)
--- NOTE | 2023-06-02 01:52 | P.HP ---
Certification for Inpatient Patient admitted to: Observation With expected LOS: <2 Midnights Patient will require the following post-hospital care: None Practitioner: I am a practitioner with admitting privileges, knowledge of patient current condition, hospital course, and medical plan of care. Services: Services provided to patient in accordance with Admission requirements found in Title 42 Section 412.3 of the Code of Federal Regulations Patient History Date of Service: 06/02/23 Reason for admission: dizziness History of Present Illness: 37-year-old female with history of anxiety, hyperlipidemia, TIA, presents to the emergency room with dizziness, headache, facial numbness. She reports symptoms started day around 8 PM. She reports history of a prior TIA, with similar symptoms. She reports history of low blood pressure, taking medications for cholesterol. She reports right facial numbness that is constant. She denies chest pain, abdominal pain, cough, shortness of breath, edema. Plan to admit for dizziness, TIA, bradycardia, EKG 9 Rate is 51 beats/min. Rhythm is regular. QRS [place] is Normal. [place] interval is normal. QRS interval is normal. QT interval is normal. No Q waves. T waves are Normal. No ST changes noted. Clinical impression: Sinus bradycardia and No evidence of ischemia. Laboratory evaluation CBC is unremarkable, CMP unremarkable, transaminitis, AST 64, ALT 128, CT of the head, CTA of the neck, pending chest x-ray pending Allergies No Known Allergies Allergy (Verified 02/13/23 18:20) Home Medications: Atorvastatin Calcium [Lipitor] 40 mg PO BEDTIME #30 tab 02/15/23 Ferrous Sulfate [Feosol] 325 mg PO DAILY #30 tab 02/15/23 Folic Acid 1 mg PO DAILY #30 02/15/23 - Past Medical/Surgical History Diabetic: No -: covid -: delivery -: gastric bypass - Family History Mother -: Hypertension Notes: COVID - Social History Alcohol use: No CD- Drugs: No Caffeine use: Yes Review of Systems 10-point ROS is otherwise unremarkable Physical Examination - Physical Exam General: Alert, In no apparent distress, Oriented x3 HEENT: Atraumatic, Normocephalic, PERRLA Neck: Supple, 2+ carotid pulse no bruit Respiratory: Clear to auscultation bilaterally, Normal air movement Cardiovascular: No edema, Normal pulses, Regular rate/rhythm Capillary refill: <2 Seconds Gastrointestinal: Normal bowel sounds, Soft and benign Musculoskeletal: No clubbing, No swelling Integumentary: No rashes, No breakdown Neurological: Normal speech, Cranial nerves 3-12 intact, Other (Right-sided facial numbness, NIH stroke scale 1) - Studies Laboratory Data (last 24 hrs) 06/01/23 06/01/23 06/01/23 23:24 23:24 23:24 WBC 5.30 Hgb 12.1 Hct 38.4 Plt Count 223 PT 11.2 INR 1.02 Sodium 140 Potassium 3.9 BUN 8 Creatinine 0.83 Glucose 82 Magnesium 2.3 Total Bilirubin 0.3 AST 64 H ALT 128 H Alkaline Phosphatase 75 Assessment and Plan - Plan Assessment plan TIA, Dizziness Headache Hyperlipidemia Transaminitis Sinus bradycardia DVT prophylaxis Assessment plan TIA, Dizziness Headache Neurology consult, CT of the head CT of the neck pending Fall precautions, neurochecks, Hyperlipidemia Resume appropriate home medications, lipid panel in the a.m. Aspirin, antihyperlipidemic, Transaminitis transaminitis, AST 64, ALT 128, Sinus bradycardia Telemetry, EKG 9 Rate is 51 beats/min. Rhythm is regular. QRS [place] is Normal. [place] interval is normal. QRS interval is normal. QT interval is normal. No Q waves. T waves are Normal. No ST changes noted. Clinical impression: Sinus bradycardia and No evidence of ischemia. DVT prophylaxis Lovenox Cardiac Full code Discharge Plan: Home Plan to discharge in: 24 Hours - Advance Directives Does patient have a Living Will: No Does patient have a Durable POA for Healthcare: No - Code Status/Comfort Care Code Status: Full Code Physician Review: Patient Assessed, Agree with Above Assessment and Plan Critical Care: No Time Spent Managing Pts Care (In Minutes): 50
[2023-06-02] MEDS ORDERED: CLOPIDOGREL 75 MG TABLET ONE (02:21)
[2023-06-02] MEDS ORDERED: ASPIRIN 81 MG CHEWABLE TABLET ONE (02:21)
[2023-06-02 02:41] VITALS: O2SAT 100
[2023-06-02 02:44] VITALS: BMI 33.7
[2023-06-02] MEDS ORDERED: ASPIRIN 325 MG TAB PO SCH (09:00)
[2023-06-02 10:18] LABS: Urine Bacteria 20-50 /HPF (<20); Urine Bilirubin NEGATIVE (Negative); Urine Blood Trace (Negative); Urine Clarity Clear (Clear); Urine Color Light-Yellow (Yellow); Urine Glucose NEGATIVE (Negative); Urine Mucus Slight /HPF (None Seen); Urine Protein NEGATIVE (Negative); Urine RBC <5 /HPF (None Seen); Urine Urobilinogen Normal (Normal); Urine pH 5.5 (5.0-7.0)
[2023-06-02 10:19] LABS: Specific Gravity ND (1.005-1.030)
[2023-06-02 10:25] LABS: Bilirubin Total 0.3 mg/dL (0.2-1.0); Potassium 3.8 mEq/L (3.5-5.1); Protein, Total 6.2 g/dL (6.4-8.2)
--- NOTE | 2023-06-02 11:08 | P.DS ---
Admission Date: 06/02/23 Discharge Date: 06/02/23 Disposition: ROUTINE DISCHARGE Discharge Condition: GOOD Reason for Admission: dizziness Brief History of Present Illness: Pt AW transient parasthesia of left arm with headache Hospital Course: Ext W/u for stroke was neg. Abnormal PFT. Declining. Hepatitis and U/S of liver ordered . Poss SE of statins/ Pt to hold statin. At the time of discharge no symptoms. No Weakness. Cranial nerves normal/ No gait problems/To f/u with MD or GI. Hold statin for now Vital Signs/Physical Exam: Temp Pulse Resp BP Pulse Ox 97.2 F 54 16 91/55 L 99 06/02/23 08:38 06/02/23 08:00 06/02/23 08:00 06/02/23 08:00 06/02/23 08:00 Laboratory Data at Discharge: WBC 5.30 thou/uL (4.3-10.9) 06/01/23 23:24 Hgb 12.1 g/dL (12.0-15.0) 06/01/23 23:24 Hct 38.4 % (36.0-45.0) 06/01/23 23:24 Plt Count 223 thou/uL (152-406) 06/01/23 23:24 PT 11.2 SECONDS (9.5-12.5) 06/01/23 23:24 INR 1.02 06/01/23 23:24 Sodium 140 mEq/L (136-145) 06/02/23 09:52 Potassium 3.8 mEq/L (3.5-5.1) 06/02/23 09:52 BUN 8 mg/dL (7-18) 06/02/23 09:52 Creatinine 0.75 mg/dL (0.55-1.02) 06/02/23 09:52 Glucose 96 mg/dL (74-106) 06/02/23 09:52 Magnesium 2.3 mg/dL (1.6-2.4) 06/01/23 23:24 Total Bilirubin 0.3 mg/dL (0.2-1.0) 06/02/23 09:52 AST 63 U/L (15-37) H 06/02/23 09:52 ALT 116 U/L (13-56) H 06/02/23 09:52 Alkaline Phosphatase 60 U/L (45-117) 06/02/23 09:52 Triglycerides 39 mg/dL (<150) 06/02/23 02:05 Cholesterol 103 mg/dL (<200) 06/02/23 02:05 HDL Cholesterol 57 mg/dL (40-60) 06/02/23 02:05 Cholesterol/HDL Ratio 1.81 06/02/23 02:05 Home Medications: Ferrous Sulfate [Ferrous Sulfate*] 325 mg PO DAILY #30 tab 02/15/23 Folic Acid 1 mg PO DAILY #30 02/15/23 Aspirin 81 mg PO DAILY 06/02/23 Midodrine HCl 2.5 mg PO TID 06/02/23 Physician Discharge Instructions: Abnormal :LFT's to hold Atorvostatin ( cholesterol pill). F/u with regular MD. F/u LFT in 2 wks. Diet: Regular Activity: Ad maddison
[2023-06-02 12:09] VITALS: BP 103/56; TEMP 97.8
--- NOTE | 2023-06-02 12:47 | RAD REPORT ---
EXAM DESCRIPTION: US - Abdomen Exam Limited - 06/02/2023 11:04 am CLINICAL HISTORY: Abnormal LFT COMPARISON: 02/13/2023 ultrasound. TECHNIQUE: Sonographic grayscale and color flow images of the right upper quadrant of the abdomen w ere obtained. FINDINGS: Gallbladder size is normal. No gallstones, wall thickening or pericholecystic fluid. Commo n bile duct is normal in caliber, 4 millimeter, with no common duct stone identified. Visualized aspects of the liver are unremarkable. No intrahepatic biliary ductal dilation. IMPRESSION: Normal right upper quadrant abdominal ultrasound.
[2023-06-02] MEDS ORDERED: ATORVASTATIN 20 MG TAB PO SCH (21:00)
--- NOTE | 2023-06-03 15:30 | EKG ---
Test Date: 2023-06-01 Test Time: 23:39:51 Incident Engineer: ADRIA MEASUREMENT RESULTS: Intervals: Rate: 51 SC: 148 QRSD: 76 QT: 432 QTc: 398 Edison: P: 51 SC: 148 QRS: -6 T: 13 INTERPRETIVE STATEMENTS: Sinus bradycardia Otherwise normal ECG Compared to ECG 02/17/2023 22:39:04 Sinus rhythm no longer present Sinus arrhythmia no longer present Myocardial infarct finding no longer present Electronically Signed On 06-03-23 15:28:35 CDT by Feedrico Loredo
--- NOTE | 2023-06-03 18:03 | RAD REPORT ---
EXAM DESCRIPTION: CT - Head Brain Wo Cont - 06/02/2023 6:50 am CLINICAL HISTORY: 37 years Female DIZZINESS, tingling in left arm TECHNIQUE: Multiple axial CT images of the brain were performed followed by sagittal and coronal rec onstructed images. The CT study is performed according to ALARA (as low as reasonably achievable) or ALARA/IMAGE GENTLY, with automatic adjustment of mA and/or kV according to patient size. Performed on: 06/02/2023 at 12:46 AM COMPARISON: CT head performed on 05/13/2023. FINDINGS: Brain: There is no evidence of mass, acute mass effect or midline shift. There are no acut e extra-axial fluid collections. There is no evidence of acute intracranial hemorrhage. The cerebra l sulci and ventricles are normal in size and configuration. There are no focal abnormal areas of inc reased or decreased attenuation. Paranasal Sinuses and Mastoids: There is no significant mucosal thickening of the paranasal sinuses. The mastoid air cells are clear. Orbits: The orbital contents are grossly unremarkable. Bones: No acute osseous abnormalities are identified. Soft Tissues: No focal soft tissue abnormalities are identified. IMPRESSION: No evidence of acute intracranial pathology. No significant change when compared to the prior study. These critical findings were discussed with Dr. Luis Carlos Amos on 06/02/2023 at 2:04 AM central time Electronically signed by: Jazmin Mcallister DO 06/02/2023 2:04 AM CDT Due to temporary technical issues with the PACS/Fluency reporting system, reports are being signed by the in house radiologists without review as a courtesy to insure prompt reporting. The interpreting radiologist is fully responsible for the content of the report.
--- NOTE | 2023-06-03 18:05 | RAD REPORT ---
EXAM DESCRIPTION: CT - Neck Angio - 06/02/2023 6:50 am CLINICAL HISTORY: 37 years Female NUMBNESS., Dizziness, tingling in left arm TECHNIQUE: Following dynamic intravenous nonionic contrast infusion, multiple axial helical CT image s with multiplanar reconstructions were obtained through the head and neck. Coronal and sagittal MIP images were performed. The CT study is performed according to ALARA (as low as reasonably achievable) or ALARA/IMAGE GENTLY, with automatic adjustment of mA and/or kV according to patient size. Performed on: 06/02/2023 at 12:47 AM COMPARISON: Brain MRI and MRA report from 02/28/[address] neck angiography report from 02/13/2023. T he images were unavailable for review. FINDINGS: CTA NECK: AORTA: The aortic arch is incompletely imaged on this study. The left subclavian artery, left common carot id artery and innominate artery are patent. VERTEBRAL ARTERIES: The LEFT vertebral artery is normal in caliber and contour without evidence of dissection or signific ant stenosis. The RIGHT vertebral artery is normal in caliber and contour without evidence of dissection or signifi cant stenosis. CAROTID ARTERIES: The LEFT common carotid artery is unremarkable. There is no evidence of stenosis, dissection or occlu abraham The carotid bulb demonstrates no significant plaque. The LEFT internal carotid artery is corina l in caliber and contour without evidence of significant stenosis, dissection or occlusion. The LEFT external carotid artery is unremarkable. The RIGHT common carotid artery is unremarkable. There is no evidence of stenosis, dissection or occl usion. The carotid bulb demonstrates no significant plaque. The RIGHT internal carotid artery is un remarkable. There is no evidence of stenosis, dissection or occlusion. The RIGHT external carotid art karlos is unremarkable. CTA HEAD: LEFT: INTERNAL CAROTID ARTERY: The distal internal carotid artery is unremarkable. ANTERIOR CEREBRAL ARTERY: The A1 segment is normal in caliber and contour. The A2 segment is normal i n caliber and contour. The region of the anterior communicating artery is unremarkable. MIDDLE CEREBRAL ARTERY: The M1 segment is normal in caliber and contour. The M2 branches are normal i n caliber and contour. POSTERIOR CEREBRAL ARTERY: The P1 segment is normal in caliber and contour. The P2 segment is normal in caliber and contour. The left posterior communicating artery is hypoplastic. VERTEBRAL ARTERY: The intradural left vertebral artery is normal in caliber and contour. RIGHT: INTERNAL CAROTID ARTERY: The distal internal carotid artery is unremarkable. ANTERIOR CEREBRAL ARTERY: The A1 segment is normal in caliber and contour. The A2 segment is normal i n caliber and contour. MIDDLE CEREBRAL ARTERY: The M1 segment is normal in caliber and contour. The M2 branches are normal i n caliber and contour. POSTERIOR CEREBRAL ARTERY: The P1 segment is normal in caliber and contour. The P2 segment is normal in caliber and contour. The right posterior communicating artery is hypoplastic. VERTEBRAL ARTERY: The intradural right vertebral artery is normal in caliber and contour. BASILAR ARTERY: The basilar artery is normal in caliber and contour. DURAL VENOUS SINUSES: The dural venous sinuses are patent. NON-ANGIOGRAPHIC FINDINGS: Lung apices are clear. The thyroid gland is normal in size and configuration. The visualized cervical and thoracic spine are unremarkable. The paranasal sinuses and mastoid air cells are clear. The orbi michele contents are unremarkable. IMPRESSION: CTA NECK: Normal CTA of the neck. There is no evidence of stenosis as per the NASCET criteria. CTA HEAD: Normal intracranial CTA. There is no evidence of large vessel occlusion, significant stenosis, aneury sm or other vascular malformation. These critical findings were discussed with Dr. Amos on 06/02/2023 at 2:04 AM central time. Electronically signed by: Jazmin Mcallister DO 06/02/2023 2:19 AM CDT Due to temporary technical issues with the PACS/Fluency reporting system, reports are being signed by the in house radiologists without review as a courtesy to insure prompt reporting. The interpreting radiologist is fully responsible for the content of the report.
--- NOTE | 2023-06-03 18:14 | RAD REPORT ---
EXAM DESCRIPTION: RAD - Chest Single View - 06/01/2023 11:46 pm CLINICAL HISTORY: The patient is 37 years old and is Female; COUGH TECHNIQUE: Frontal view of the chest. COMPARISON: No relevant prior studies available. FINDINGS: Lungs: Unremarkable. No consolidation. Pleural space: Unremarkable. No pneumothorax. Heart: Unremarkable. Mediastinum: Unremarkable. Bones/joints: Unremarkable. IMPRESSION: No acute findings in the chest. Electronically signed by: Fransico Deutsch MD 06/02/2023 12:10 AM CDT Due to temporary technical issues with the PACS/Fluency reporting system, reports are being signed by the in house radiologists without review as a courtesy to insure prompt reporting. The interpreting radiologist is fully responsible for the content of the report.
[2023-06-04 05:54] LABS: Hepatitis B Core IgM Nonreactive (Nonreactive); Hepatitis B surface AG Interp. Nonreactive (Nonreactive); Hepatitis C Virus Ab Nonreactive (Nonreactive)
== END 2023-06-02 14:48 | disposition home or self-care (01) ==
LOC: ER 22:33 → 2ND 06-02 00:46
PROVIDERS: ADMIT Internal Medicine Sleep Medicine; ATTEND Internal Medicine Sleep Medicine
DX: R00.1 Bradycardia, unspecified (principal); R20.0 Anesthesia of skin; R74.01 Elevation of levels of liver transaminase levels; F41.9 Anxiety disorder, unspecified; E78.5 Hyperlipidemia, unspecified; R51.9 Headache, unspecified; Z86.73 Personal history of transient ischemic attack (TIA), and cerebral infarction without residual deficits
CPT/HCPCS: 96365; 93005; 85025; 81001; 80048; 36415; 83735; 85610; 80061; 80076; 84484; 80053; 83880; 86140; 80074; 70450; 70496; 70498; 71045; 76705; 99285; Q9967; J7030

== ENCOUNTER 2023-06-07 17:21 | Emergency (ER) | payer OTHER ==
--- OUTSIDE RECORDS SUMMARY | 2023-06-07 17:46 | XMS REPORT | Continuity of Care Document ---
:1985 Author Organization [facility] t Address [address] [facility]. [address] [place] [address] Care Team Providers Name Role Phone PCP, PATIENT DOES NOT HAVE A Primary Care Physician UnavailLEANDRA Muse Attending Clinician Unavailable Leandra Mckeon MD Attending Clinician Doctor Unassigned, [place] Attending Clinician Unavailable Sheryl Wooten PA-C Attending Clinician Payers Payer Name Policy Type Policy Number Effective Date Expiration Date S ource PHCS GENERIC [id number] 2022 00:00:00 Problems Condition Condition Condition Status Onset Resolution Last Treating Co mments Source Name Details Category Date Date Treatment Clinician Date NSVT NSVT Disease Active Univers (nonsustai (nonsustai 7-17 it y of faith faith 00:00: [place] ventricula ventricula 00 Me dical r r [...] transient 5-19 ity of ischemic ischemic 00:00: [place] attack attack 00 Medical (TIA) (TIA) Branch Dizziness Dizziness Disease Active Uni vers and and 03-09 ity of [place] g[place] Sinus Sinus Disease Active Univers bradycardi bradycardi 03-09 it y of a a 00:00: [place] [address] Medical Branch Allergies, Adverse Reactions, Alerts Allergy Allergy Status Severity Reaction(s) Onset Inactive Treating Comm ents Source Name Type Date Date Clinician NO KNOWN Drug Active Univers ALLERGIE Class ity of S [facility] Social History Social Habit Start Date Stop Date Quantity Comments Source Gender identity Universit y of [facility] Sexual orientation Univer sity of [facility] History SDOH University o f Alcohol Std Drinks [facility] History [facility] University o f Alcohol Binge [place] Medic al [place] History of Social 2023-05-07 2023-05-07 Univers ity of function 00:00:00 00:00:00 [facility] Tobacco use and 2023-05-07 2023-05-07 Smokeless Universit y of exposure 00:00:00 00:00:00 tobacco non-user [facility] dical [place] Alcohol intake 2023-05-07 2023-05-07 Ex-drinker University 00:00:00 00:00:00 (finding) [facility] Exposure to 2023-02-27 2023-03-09 Not sure [facility] SARS-CoV-2 (event) 00:00:00 08:25:00 [facility] History SDOH 2019-07-02 2019-07-02 1 University o f Alcohol Frequency 00:00:00 00:00:00 [facility] edical [place] Sex Assigned At [birth year] Universit y of 00:00:00 00:00:00 [facility] Smoking Status Start Date Stop Date Source Never smoked tobacco [facility] Medications Ordered Filled Start Stop Current Ordering Indication Dosage Frequency Signature Comments Components Source Medication Medication Date Date Medication? Clinician (SIG) Name Name midodrine Yes [id number] 2.5mg Take 1 U nivers 2.5 mg 8-10 tablet by ity of tablet 00:00: mouth in [place] [address] the Medical morning Branch and 1 tablet at noon and 1 tablet in the evening. midodrine 2023-0 Yes [id number] 2.5mg Take 1 U nivers 2.5 mg 7-17 tablet by ity of tablet 00:00: mouth in [place] 00 the Medical morning Branch and 1 tablet at noon and 1 tablet in the evening. midodrine 3-0 Yes [id number] 2.5mg Take 1 U nivers 2.5 mg 7-17 tablet by ity of tablet 00:00: mouth in [place] 00 the Medical morning Branch and 1 tablet at noon and 1 tablet in the evening. midodrine 3-0 Yes [id number] 2.5mg Take 1 U nivers 2.5 mg 7-17 tablet by ity of tablet 00:00: mouth in [place] 00 the Medical morning Branch and 1 tablet at noon and 1 tablet in the evening. midodrine 3-0 2023- No [id number] 2.5mg Take 1 Univers 2.5 mg 7-17 08-10 tablet by ity of tablet 00:00: 00:00 mouth in [place] 00 :00 the Medical morning Branch and 1 tablet at noon and 1 tablet in the evening. foLIC acid 3-0 Yes 1mg Take 1 Unive rs 1 mg tablet 5-19 tablet by ity of 08:45: mouth in [place] [address] the Medical morning. Branch ferrous 2023-0 Yes [...] tablet by ity of 08:45: mouth in [place] [address] the Medical morning. Branch ferrous 2023-0 Yes [...] tablet by ity of 08:45: mouth in [place] [address] the Medical morning. Branch ferrous 2023-0 Yes [...] tablet by ity of 08:45: mouth in [place] [address] the Medical morning. Branch ferrous 2023-0 Yes [...] tablet by ity of 08:45: mouth in [place] [address] the Medical morning. Branch ferrous 2023-0 Yes [...] tablet by ity of 08:45: mouth in [place] [address] the Medical morning. Branch ferrous 2023-0 Yes [...] tablet by ity of 08:45: mouth in [place] [address] the Medical morning. Branch ferrous 2023-0 Yes [...] tablet by ity of 08:45: mouth in [place] [address] the Medical morning. Branch ferrous 2023-0 Yes [...] tablet by ity of 08:45: mouth in [place] [address] the Medical morning. Branch ferrous 2023-0 Yes [...] tablet by ity of 08:45: mouth in [place] [address] the Medical morning. Branch ferrous 2023-0 Yes [...] tablet by ity of 08:45: mouth in [place] [address] the Medical morning. Branch ferrous 2023-0 Yes [...] tablet by ity of 08:45: mouth in [place] [address] the Medical morning. Branch ferrous 2023-0 Yes [...] tablet by ity of 08:45: mouth in [place] [address] the Medical morning. Branch ferrous 2023-0 Yes [...] tablet by ity of 08:45: mouth in [place] [address] the Medical morning. Branch ferrous 2023-0 Yes [...] tablet by ity of 08:45: mouth in [place] [address] the Medical morning. Branch ferrous 2023-0 Yes [...] tablet by ity of 08:45: mouth in [place] [address] the Medical morning. Branch ferrous 2023-0 Yes [...] tablet by ity of 08:45: mouth in [place] [address] the Medical morning. Branch ferrous 2023-0 Yes [...] by ity of tablet 00:00: mouth in [place] 00 the Medical morning. Branch aspirin 81 2023-0 Yes 81mg Take 1 Unive rs mg EC 5-04 tablet by ity of tablet 00:00: mouth in [place] 00 the Medical morning. Branch aspirin 81 2023-0 Yes 81mg Take 1 Unive rs mg EC 5-04 tablet by ity of tablet 00:00: mouth in [place] 00 the Medical morning. Branch aspirin 81 2023-0 Yes 81mg Take 1 Unive rs mg EC 5-04 tablet by ity of tablet 00:00: mouth in [place] 00 the Medical morning. Branch aspirin 81 2023-0 Yes 81mg Take 1 Unive rs mg EC 5-04 tablet by ity of tablet 00:00: mouth in [place] 00 the Medical morning. Branch aspirin 81 2023-0 Yes 81mg Take 1 Unive rs mg EC 5-04 tablet by ity of tablet 00:00: mouth in [place] 00 the Medical morning. Branch aspirin 81 2023-0 Yes 81mg Take 1 Unive rs mg EC 5-04 tablet by ity of tablet 00:00: mouth in [place] 00 the Medical morning. Branch aspirin 81 2023-0 Yes 81mg Take 1 Unive rs mg EC 5-04 tablet by ity of tablet 00:00: mouth in [place] 00 the Medical morning. Branch aspirin 81 2023-0 Yes 81mg Take 1 Unive rs mg EC 5-04 tablet by ity of tablet 00:00: mouth in [place] 00 the Medical morning. Branch aspirin 81 2023-0 Yes 81mg Take 1 Unive rs mg EC 5-04 tablet by ity of tablet 00:00: mouth in [place] 00 the Medical morning. Branch aspirin 81 2023-0 Yes 81mg Take 1 Unive rs mg EC 5-04 tablet by ity of tablet 00:00: mouth in [place] 00 the Medical morning. Branch aspirin 81 2023-0 Yes 81mg Take 1 Unive rs mg EC 5-04 tablet by ity of tablet 00:00: mouth in [place] 00 the Medical morning. Branch aspirin 81 2023-0 Yes 81mg Take 1 Unive rs mg EC 5-04 tablet by ity of tablet 00:00: mouth in [place] 00 the Medical morning. Branch aspirin 81 2023-0 Yes 81mg Take 1 Unive rs mg EC 5-04 tablet by ity of tablet 00:00: mouth in [place] 00 the Medical morning. Branch aspirin 81 2023-0 Yes 81mg Take 1 Unive rs mg EC 5-04 tablet by ity of tablet 00:00: mouth in [place] 00 the Medical morning. Branch aspirin 81 2023-0 Yes 81mg Take 1 Unive rs mg EC 5-04 tablet by ity of tablet 00:00: mouth in [place] 00 the Medical morning. Branch aspirin 81 3-0 Yes 81mg Take 1 Unive rs mg EC 5-04 tablet by ity of tablet 00:00: mouth in [place] 00 the Medical morning. Branch atorvastati 3-0 Yes 40mg Take 1 Univ ers n 40 mg 4-27 tablet by ity of tablet 00:00: mouth at [place] [address] bedtime. Medical Branch atorvastati 3-0 Yes 40mg Take 1 Univ ers n 40 mg 4-27 tablet by ity of tablet 00:00: mouth at [place] [address] bedtime. Medical Branch atorvastati 3-0 Yes 40mg Take 1 Univ ers n 40 mg 4-27 tablet by ity of tablet 00:00: mouth at [place] [address] bedtime. Medical Branch atorvastati 3-0 Yes 40mg Take 1 Univ ers n 40 mg 4-27 tablet by ity of tablet 00:00: mouth at [place] [address] bedtime. Medical Branch atorvastati 3-0 Yes 40mg Take 1 Univ ers n 40 mg 4-27 tablet by ity of tablet 00:00: mouth at [place] [address] bedtime. Medical Branch atorvastati 3-0 Yes 40mg Take 1 Univ ers n 40 mg 4-27 tablet by ity of tablet 00:00: mouth at [place] [address] bedtime. Medical Branch atorvastati 3-0 Yes 40mg Take 1 Univ ers n 40 mg 4-27 tablet by ity of tablet 00:00: mouth at [place] [address] bedtime. Medical Branch atorvastati 2023-0 Yes 40mg Take 1 Univ ers n 40 mg 4-27 tablet by ity of tablet 00:00: mouth at [place] [address] bedtime. Medical Branch atorvastati 2023-0 Yes 40mg Take 1 Univ ers n 40 mg 4-27 tablet by ity of tablet 00:00: mouth at [place] [address] bedtime. Medical Branch atorvastati 2023-0 Yes 40mg Take 1 Univ ers n 40 mg 4-27 tablet by ity of tablet 00:00: mouth at [place] [address] bedtime. Medical Branch atorvastati 2023-0 Yes 40mg Take 1 Univ ers n 40 mg 4-27 tablet by ity of tablet 00:00: mouth at [place] 00 bedtime. Medical Branch atorvastati 2023-0 Yes 40mg Take 1 Univ ers n 40 mg 4-27 tablet by ity of tablet 00:00: mouth at [place] bedtime. Medical Branch atorvastati 2023-0 Yes 40mg Take 1 Univ ers n 40 mg 4-27 tablet by ity of tablet 00:00: mouth at [place] bedtime. Medical Branch atorvastati 3-0 Yes 40mg Take 1 Univ ers n 40 mg 4-27 tablet by ity of tablet 00:00: mouth at [place] bedtime. Medical Branch atorvastati 3-0 Yes 40mg Take 1 Univ ers n 40 mg 4-27 tablet by ity of tablet 00:00: mouth at [place] bedtime. Medical Branch atorvastati 2023-0 Yes 40mg Take 1 Univ ers n 40 mg 4-27 tablet by ity of tablet 00:00: mouth at [place] bedtime. Medical Branch atorvastati 3-0 Yes 40mg Take 1 Univ ers n 40 mg 4-27 tablet by ity of tablet 00:00: mouth at [place] bedtime. Medical Branch ibuprofen 2016-0 Yes 600mg [...] 2023-05-07 19:25:00 54 /min Universi ty of [place] [facility] Respiratory rate 2023-05-07 19:25:00 16 /min Univ ersity of [place] [facility] Body height 2023-05-07 19:25:00 162.6 cm [facility]i ty of [place] [facility] Body weight 2023-05-07 19:25:00 86.592 kg [facility] [place] [facility] BMI 2023-05-07 19:25:00 32.77 kg/m2 Universi ty of [place] [facility] Oxygen saturation in 2023-05-07 19:25:00 98 /min University of Arterial blood by [facility] Pulse oximetry Branch Systolic blood 2023-03-09 13:52:00 110 mm[Hg] Univer sity of pressure [place] [facility] Diastolic blood 2023-03-09 13:52:00 68 mm[Hg] Unive rsity of pressure [place] [facility] Heart rate 2023-03-09 13:52:00 71 /min [facility]i ty [facility] [place] [facility] Body height 2023-03-09 13:52:00 162.6 cm [facility]i ty [facility] [place] [facility] Body weight 2023-03-09 13:52:00 85.957 kg [facility] [place] [facility] BMI 2023-03-09 13:52:00 32.53 kg/m2 [facility] ty [facility] [place] [facility] Oxygen saturation in 2023-03-09 13:52:00 99 /min University of Arterial blood by [facility] Pulse oximetry Branch Systolic blood 2019-07-02 20:30:00 137 mm[Hg] Univer sity of pressure [place] [facility] Diastolic blood 2019-07-02 20:30:00 91 mm[Hg] Unive rsity of pressure [place] [facility] Heart rate 2019-07-02 20:30:00 90 /min [facility] ty [facility] [place] [facility] Body temperature 2019-07-02 20:30:00 36.83 Wen Univ ersity of [place] [facility] Respiratory rate 2019-07-02 20:30:00 18 /min Univ ersity of [place] [facility] Body height 2019-07-02 20:30:00 162.6 cm [facility] [place] [facility] Body weight 2019-07-02 20:30:00 155.13 kg [facility] BMI 2019-07-02 20:30:00 58.70 kg/m2 [facility] Procedures Procedure Date / Time Performing Clinician Source Performed INSURANCE CORRESPONDENCE 2023-04-20 05:01:00 Doctor Francisco, [facility] [place] [facility] PHYSICIAN CERTIFICATION 2023-04-07 05:01:00 Doctor Francisco [facility] STATEMENT [place] [facility] HB ECG ROUTINE & RHYTHM 2023-03-09 13:49:18 Leandra Mckeon [facility] CONSENT/REFUSAL FOR 2023-03-09 13:26:58 Doctor Francisco [facility] DIAGNOSIS AND TREATMENT [place] [facility] REFERRAL- 2023-03-01 05:01:00 Doctor Francisco [facility] REQUEST/RESPONSE [place] [facility] Encounters Start End Encounter Admission Attending Care Care Encounter Source Date/Time Date/Time Type Type Clinicians Facility Department ID 2023-06-19 2023-06-19 Outpatient R [facility] [id number] Univers 13:40:00 13:40:00 LEANDRA zhang nano [facility] 2023-06-05 2023-06-05 Outpatient R [facility] [id number] Univers 00:00:00 00:00:00 LEANDRA costa o f [facility] 2023-05-30 2023-05-30 Refill [facility] [id number] Univers 00:00:00 00:00:00 Leandra MARIE [id number] ity of [place] [id number] Mi dical NAL [address] [place] [address] 2023-05-11 2023-05-11 Telephone [facility] [id number] Univers 00:00:00 00:00:00 Leandra MARIE [id number] ity of [facility] [id number] [id number] Mi dical NAL [address] [place] [address] 2023-05-07 2023-05-07 Office Mike, [facility] [id number] Univers 14:20:00 14:40:00 Visit Leandra MARIE 350.1.13.10 ity of [place] [id number] Mi dic[address] 2023-05-07 2023-05-07 Outpatient R [facility] [id number] Univers 14:20:00 14:20:00 LEANDRA reidy o f [facility] 2023-04-27 2023-04-27 Telephone [facility] [id number] Univers 00:00:00 00:00:00 Leandra MARIE 350.1.13.10 ity of [facility] 4[place] [id number] [address] 2023-04-20 2023-04-20 Telephone [facility] [id number] Univers 00:00:00 00:00:00 Leandra MARIE 350.1.13.10 ity of [facility] 4[place] [id number] [address] 2023-04-20 2023-04-20 Orders Doctor LISA [id number] Univers 00:00:00 00:00:00 Only Unassigned, HANG 350.1.13.10 ity of [place] [facility] 4.2.7.2.686 Fidel as [id number] [address] 2023-04-13 2023-04-13 Telephone [facility] [id number] Univers 00:00:00 00:00:00 Leandra MARIE 350.1.13.10 ity of [place] [id number] Mi dicca NAL 9 [facility] 2023-04-07 2023-04-07 Orders Doctor LISA [id number] Univers 00:00:00 00:00:00 Only Unassigned, HANG 350.1.13.10 ity of [place] [facility] 4.2.7.2.686 Fidel as [id number] [address] 2023-04-05 2023-04-05 Telephone [facility] [id number] Univers 00:00:00 00:00:00 Ushan[place] 350.1.13.10 ity of [facility] 4.2.7.2.[place] [id number] [address] 2023-03-30 2023-03-30 Telephone [facility] [id number] Univers 00:00:00 00:00:00 Ushan[place] CYNTHIA 350.1.13.10 ity of [facility] 4[place]2.7.2.[place] [id number] [address] 2023-03-29 2023-03-29 Outpatient R [facility] [id number] Univers 15:01:56 23:59:00 LEANDRA reidy o f [facility] 2023-03-13 2023-03-13 [facility] [id number] Univers 00:00:00 00:00:00 [place] CYNTHIA 350.1.13.10 ity of [facility] 4.2.7.2.[place] [id number] Mi dic[address] 2023-03-09 2023-03-09 Office [facility] 1.2.840.114 [id number] Univers 09:40:00 09:40:00 Visit [place] CYNTHIA 350.1.13.10 ity of [facility] 4.2.7.2.[place] [id number] [address] 2023-03-09 2023-03-09 Outpatient R [facility] [id number] Univers 09:40:00 09:16:01 LEANDRA ity o f [facility] 2023-03-09 2023-03-09 Orders Doctor GONZALEZ 1.2.840.114 [id number] [facility] 00:00:00 00:00:00 Only Unassigned, HANG 350.1.13.10 ity of [place] [facility] 4.2.7.2.686 Fidel as [id number] [address] 2023-03-08 2023-03-08 Outpatient [facility] [id number] Kit 13:57:51 13:57:51 [id number] [facility] [place] [facility] 2023-03-01 2023-03-01 Outpatient [facility] Kit 09:56:01 09:56:01 [id number] [facility] [place] [facility] 2023-03-01 2023-03-01 Orders Doctor LISA 1.2.840.114 [id number] Univers 00:00:00 00:00:00 Only Unassigned, HANG 350.1.13.10 ity of [place] [facility] 4.2.7.2.686 Fidel as [id number] [address] 2023-02-22 2023-02-22 Outpatient [facility] Kit 10:00:22 10:00:22 [id number] [facility] [place] [facility] 2023-02-16 2023-02-16 Outpatient [facility] Kit 14:11:58 14:11:58 [id number] [facility] [place] [facility] 2019-07-08 2019-07-08 Case [facility] [id number] [facility] 00:00:00 00:00:00 Management Sheryl Marie 350.1.13.10 [place]y [place] Profess[place] [id number] [address] 2019-07-02 2019-07-02 Office [facility] [id number] [facility] 15:20:19 15:54:38 Visit Sheryl Marie 350.1.13.10 i ty [place] Profess[place] [id number] [address] Results Test Description Test Time Test Comments Results Result Comments Source OCCULT BLD,FECAL,IMMUNOASSAY DIA 2023-03-14 11:20:54 Test Item Value Reference Range Interpretation Comme nts OCCULT BLD, FECAL (test code NEGATIVE NEGATIVE UNLESS OTHERWISE INDICATED, ALL = 25277) TESTING PERFORM ED AT [facility]. [address] [place] [address] COFFEE GROWER: CORI GOMEZ M.D. [place] NUMBER [id number] [facility] [place]EDITATION [place] O. [id number] PATHOLOGIST SMEAR [id number] 13:20:44 Test Item Value Reference Range Interpretation [...] in nu mber. (je;03/02/23) PATHOLOGIST: (test (NOTE) Laura Orta code = 8250) Arpit Gomez (electronically signed) DiplomateChely Board of Pathol ogy with Subspecialty Certification, Hematology CPT: (test code = 83078 8400) WBC (test code = 4.1 K/UL [...] The (test code = 1065) WBC'S system wh ich generated this result tra nsmitted reference range [...] RBCS 0.00 K/UL 0.00-0.11 (test code = 85779) COMMENTS (test code (NOTE) MARKED ANISOCYTOSIS FEW = 1016) ELLIPTOCYTES MO DERATE HYPOCHROMASIA S LIGHT MICROCYTOSIS SL IGHT POIKILOCYTOSIS SLIGHT POLYCHROMASIA FEW TEAR DROP CELLS PLAT ELETS APPEAR INCREASE D UNLESS OTHERWISE INDIC ATED, ALL TESTING PERFORM ED AT CLINICAL PATHOL [facility]. [address] [facility] [place] [address] LABORATORY DIRE CTOR: HIGINIO HEWITT M.D. CLIA NUMBER [id number] [place] [id number] HAPTOGLOBIN, [id number] 13:10:19 Test Item Value Reference Range Interpretation Comments HAPTOGLOBIN, QUANT (test code = 78 MG/DL 32-197 92790) [id number] 07:59:28 Test Item Value Reference Range Interpretation Comments LDH (test code = 2224) 178 U/L 135-214 RETICULOCYTE WITH [id number] 23:14:06 Test Item Value Reference Range Interpretation Comments RETICULOCYTE COUNT (test code = 3.68 % 0.80-2.40 H 1018) ABSOLUTE RETICULOCYTE (test code = 131.0 K/UL 32.0-105.0 H 83584) CBC W/AUTO DIFF WITH [id number] 23:14:06 Test Item Value Reference Range Interpretation [...] message] code = 1065) WBC'S The system whic h generated this result transmitted ref erence range: [...] RBCS 0.00 K/UL 0.00-0.11 (test code = 86112) COMMENTS (test code (NOTE) MODERAT E = 1016) ANISOCYTOSIS MA RKED HYPOCHROMASIA S LIGHT MICROCYTOSIS S LIGHT POLYCHROMASIA F EW SCHISTOCYTES PLATELETS APPEA R INCREASED [id number] 04:46:23 Test Item Value Reference Range Interpretation Comments FERRITIN (test code = 2074) 114 NG/ML 13-200 VITAMIN B 12 AND FOLIC [id number] 04:46:23 Test Item Value Reference Range Interpretation [...] . . . . . UG/L >=6.0 IRON BINDING CAPACITY AND IRON AND % [id number] 23:59:13 Test Item Value Reference Range Interpretation Comments IRON, SERUM (test code = 2222) 25 UG/DL 37-145 L UNSATURATED IBC (test code = 40532) 445 UG/DL 112-347 H CALC TOTAL IBC (test code = 2077) 470 UG/DL 250-450 H CALC % IRON SAT (test code = 2079) 5 % 20-50 L [id number] 23:58:52 Test Item Value Reference Range Interpretation Comments TRANSFERRIN (test code = 4936) 377 MG/DL 200-360 H [id number] 23:58:52 Test Item Value Reference Range Interpretation Comments HOMOCYSTEINE (test 15 UMOL/L <12 H UNLESS O THERWISE code = 4288) INDICATED, ALL TESTING PERFORMED AT [facility] [place]. [address] [place] [address] [facility] DIRECTOR: Arpit MONTGOMERY MANDY NUMBER [id number] CAP ACCREDITATION N O. [id number] MICROSCOPIC [id number] 04:53:02 Test Item Value Reference Range Interpretation Comments WHITE BLOOD CELLS (test 0-5 /HPF 0-5 code = 1513) RED BLOOD CELLS (test 0-2 /HPF 0-2 PLEAS E NOTE: NEW code = 1514) REFERENCE RANGE EFFECTIVE 01/15. EPITHELIAL CELLS (test 6-10 /HPF 0-10 code = 88027) BACTERIA (test code = >3+ NONE SEEN 1515) CRYSTALS (test code = PRESENT NONE SEEN A CALC IUM OXALATE 1516) CRYSTALS CASTS, HYALINE (test TRACE NONE-TRACE code = 1517) CBC W/AUTO DIFF WITH [id number] 15:50:45 Test Item Value Reference Range Interpretation [...] message] code = 1065) WBC'S The system [employer] generated this result transmitted ref erence range: [...] RBCS 0.00 K/UL 0.00-0.11 (test code = 61869) COMMENTS (test code (NOTE) MODERAT E = 1016) ANISOCYTOSIS MO DERATE HYPOCHROMASIA MODERATE MICROC YTOSIS PLATELETS APPEA R NORMAL TSH, THIRD [id number] 10:17:10 Test Item Value Reference Range Interpretation Comments TSH, THIRD GENERATION (test code 4.160 UIU/ML 0.400-4.100 H = 2821) [id number] 08:48:32 Test Item Value Reference Range Interpretation Comments NT-proBNP <50 PG/ML SEE BELOW If NT-ProBNP i s less than 300 (test code = PG/ML, heart fa ilure is unlikely 34736) for allages. Age............ .....Heart Failure Likely <50 Years.......... .>=450 PG/ML 50-75 Years.... .....>=900 PG/ML > 75 Years..... .....>=1800 PG/ML Methodology: Ro clary Anais Electrochemilum inescense Immunoassay [facility] has important patho logy staff changes effecti ve 12/20/2022. New patholo gy staff will provide uninter rupted, excellent patient care an d clinical consultation. S ee URL: [email or web address] UNLESS OTHERWIS E INDICATED, ALL TESTING PERFORM ED AT [facility] [place] [address] LABORATORY DIRE CTOR: Arpit MURILLO MANDY NUMBER [id number] [facility] [place] [place]. [id number] COMPREHENSIVE METABOLIC [id number] 06:00:01 Test Item Value Reference Range Interpretation Comments GLUCOSE (test code = 85 MG/DL 70-99 2216) BUN (test code = 7 MG/DL 6-20 2207) CREATININE (test 0.71 MG/DL 0.60-1.30 code = 2214) eGFR (2020 CKD-EPI) 113 >60 (test code = 75732) ML/MIN/1.73 CALC BUN/CREAT (test 10 RATIO 6-28 code = 2235) SODIUM (test code = 141 MEQ/L 410-185 8303) POTASSIUM (test code 4.2 MEQ/L 3.5-5.4 = 222) CHLORIDE (test code 106 MEQ/L 95-107 = [...] 2204) AST (test code = 32 U/L 2217) ALT (test code = 31 U/L 40 2218) LIPID [id number] 06:00:01 Test Item Value Reference Range Interpretation [...] MOREINFORMATION , SEE CLIENT ANNOUNCE MENT AT [email or web address] RATIO LDL/HDL 0.82 RATIO <3.22 (test code = 2238) HEMOGLOBIN [id number] 05:05:23 Test Item Value Reference Range Interpretation Comments HEMOGLOBIN A1c (test code = 46533) 5.3 % 4.2-5.6 Notes Date/Time Note Provider Source 2023-05-31 Formatting of this note might be differe nt from the original. Adilene Castellanos RN [facility] 09:51:33-00:00 NACHO 05/07/23 NOV 06/19/23 " Dizziness [...] nt from the original. Olive Gee MA [facility] 16:17:58-00:00 Received medical records req patito from [facility] [place], will send to [facility] for them to execute. Reach out to [facility] [employer] for any updates. Electronically signed by Olive Gee MA a t 05/11/2023 4:20 PM CDT
[2023-06-07] MEDS ORDERED: KETOROLAC 30 MG/ML INJ ONE (17:56)
[2023-06-07 18:13] LABS: Absolute Lymphocytes (CBC) 1.7 K/uL (0.7-4.9); Hematocrit 38.4 % (36.0-45.0); Lymphocytes % 36.1 % (15.3-44.8); MCV 89.9 fL (80-100); Platelets 213 thou/uL (152-406); RBC Red Blood Cell Count 4.27 M/uL (3.86-4.86)
--- NOTE | 2023-06-07 18:15 | RAD REPORT ---
EXAM DESCRIPTION: RAD - Chest Single View - 06/07/2023 6:07 pm CLINICAL HISTORY: right side chest pain COMPARISON: Chest Single View dated 06/01/2023; Chest Single View dated 05/13/2023; Chest Single View dated 02/17/2023; Chest Single View dated 02/13/2023 FINDINGS: Lines: None. Lungs: No evidence of edema or pneumonia. Pleural: No significant pleural effusions or pneumothorax. Cardiac: The heart size is within normal limits. Mediastinum: Within normal limits. Bones: No acute fractures. Other: None IMPRESSION: No acute cardiopulmonary disease.
[2023-06-07 18:19] LABS: Specific Gravity 1.005 (1.005-1.030)
[2023-06-07 18:20] LABS: Protime INR 1.05
[2023-06-07 18:21] LABS: Urine Bacteria <20 /HPF (<20); Urine Crystals Unidentified Few /HPF (None Seen); Urine RBC <5 /HPF (None Seen)
[2023-06-07 18:32] LABS: Albumin 3.8 g/dL (3.4-5.0); Bilirubin Direct 0.2 mg/dL (0-0.2); Bilirubin Indirect, Calculated 0.2 mg/dL (0.2-0.8); Bilirubin Total 0.4 mg/dL (0.2-1.0); Magnesium 2.3 mg/dL (1.6-2.4); Potassium 4.2 mEq/L (3.5-5.1); Protein, Total 7.5 g/dL (6.4-8.2); Troponin High Sensitivity 3.3 pg/mL (<58.9)
--- NOTE | 2023-06-07 22:23 | EDPHYS ---
Physician Documentation [facility] Name: Larry Morton Age: 37 yrs Sex: Female : 1985 Arrival Date: 06/07/2023 Time: 17:21 Bed 15 Private MD: ED Physician Alex Culver HPI: 06/07 17:00 This 37 yrs old Black Female presents to ER via Ambulatory with complaints of Chest cp pain on right side. 17:00 The patient or guardian reports chest pain that is located primarily in the anterior cp chest wall, right. 17:00 The pain does not radiate. cp 17:00 The chest pain is described as sharp. Duration: The patient or guardian reports a cp single episode, that is still ongoing, and unchanged. 17:00 Modifying factors: the symptoms are aggravated by deep breath, palpation of area, cp turning head to right. Historical: - Allergies: 17:34 No Known Allergies; kc6 - PMHx: 17:34 Anemia; CVA; High Cholesterol; hypotension; kc6 - PSHx: 17:34 Gastric Bypass; section; kc6 - Immunization history:: Adult Immunizations up to date. - Social history:: Smoking status: Patient denies any tobacco usage or history of. ROS: 17:05 Constitutional: Negative for body aches, chills, fever, poor PO intake. cp 17:05 Eyes: Negative for injury, pain, redness, and discharge. cp 17:05 ENT: Negative for drainage from ear(s), ear pain, sore throat, difficulty swallowing, difficulty handling secretions. 17:05 Cardiovascular: Positive for chest pain, Negative for edema, palpitations. 17:05 Respiratory: Negative for cough, shortness of breath, wheezing. 17:05 Abdomen/GI: Negative for abdominal pain, vomiting, diarrhea, constipation. 17:05 Back: Negative for pain at rest, pain with movement. 17:05 Neuro: Negative for altered mental status, dizziness, headache, numbness, syncope, near syncope, weakness. 17:05 All other systems are negative. Exam: 17:10 Constitutional: The patient appears in no acute distress, alert, awake, cp non-diaphoretic, non-toxic, well developed, well nourished. 17:10 Head/Face: Normocephalic, atraumatic. cp 17:10 Eyes: Periorbital structures: appear normal, Conjunctiva: normal, no exudate, no injection, Sclera: no appreciated abnormality, Lids and lashes: appear normal, bilaterally. 17:10 ENT: External ear(s): are unremarkable, Nose: is normal, Mouth: Lips: moist, Oral mucosa: pink and intact, moist, Posterior pharynx: is normal, airway is patent, no erythema, no exudate. 17:10 Chest/axilla: Inspection: normal, Palpation: crepitus, is not appreciated, tenderness, that is mild, of the anterior aspect of right upper chest. 17:10 Cardiovascular: Rate: bradycardic, Rhythm: regular, Edema: is not appreciated, JVD: is not appreciated. 17:10 Respiratory: the patient does not display signs of respiratory distress, Respirations: normal, no use of accessory muscles, no retractions, labored breathing, is not present, Breath sounds: are clear throughout, no decreased breath sounds, no stridor, no wheezing. 17:10 Abdomen/GI: Inspection: abdomen appears normal, Palpation: abdomen is soft and non-tender, in all quadrants. 17:10 Back: pain, is absent, ROM is normal. 17:10 Neuro: Orientation: to person, place \T\ time. Mentation: is normal, Cerebellar function: is grossly normal, Motor: moves all fours, strength is normal, Sensation: is normal. 18:02 ECG was reviewed by the Attending Physician. cp Vital Signs: 17:38 BP 113 / 47; Pulse 55; Resp 16; Temp 98; Pulse Ox 100% ; bp 18:57 BP 111 / 64; Pulse 52; Resp 13 S; Pulse Ox 100% on R/A; kc6 21:17 BP 109 / 74; Pulse 46; Resp 18; Pulse Ox 100% on R/A; ll3 MDM: 17:31 Patient medically screened. cp 22:21 Data reviewed: vital signs, nurses notes, lab test result(s), EKG, radiologic studies, cp plain films. 22:21 Consideration of Admission/Observation Escalation of care including cp admission/observation considered. I considered the following discharge prescriptions or medication management in the emergency department Medications were administered in the Emergency Department. See MAR. 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 Response to treatment: the patient's symptoms have markedly improved after treatment, and as a result, I will discharge patient. Special discussion: Based on the patient's history, exam, and Dx evaluation, there is no indication for emergent intervention or inpatient Tx. It is understood by the patient/guardian that if the Sx's persist or worsen they need to return immediately for re-evaluation. 06/07 17:33 Order name: Urine Microscopic Only; Complete Time: 18:27 cp 06/07 17:33 Order name: PREGU; Complete Time: 18:27 cp 06/07 17:43 Order name: Basic Metabolic Panel; Complete Time: 18:40 cp 06/07 18:40 Interpretation: Normal except: CL 109. cp 06/07 17:43 Order name: CBC with Diff; Complete Time: 18:27 cp 06/07 18:27 Interpretation: Normal except: MCHC 31.4; RDW 16.6. cp 06/07 17:43 Order name: D-Dimer; Complete Time: 18:27 cp 06/07 17:43 Order name: LFT's; Complete Time: 18:40 cp 06/07 18:40 Interpretation: Normal except: AST 47; ALT 94; GLOB 3.7; A/G 1.0. cp 06/07 17:43 Order name: Magnesium; Complete Time: 18:40 cp 06/07 17:43 Order name: PT-INR; Complete Time: 18:27 cp 06/07 17:43 Order name: Troponin HS; Complete Time: 18:40 cp / 20:35 Order name: Troponin High Sensitivity: redraw \T\2100; Complete Time: 22:13 cp 06/07 17:43 Order name: XRAY Chest (1 view); Complete Time: 18:27 cp 06/07 17:43 Order name: EKG; Complete Time: 17:44 cp 06/07 17:43 Order name: Cardiac monitoring; Complete Time: 18:05 cp 06/07 17:43 Order name: EKG - Nurse/Tech; Complete Time: 18:05 cp 06/07 17:43 Order name: IV Saline Lock; Complete Time: 18:06 cp 06/07 17:43 Order name: Labs collected and sent; Complete Time: 18:06 cp 06/07 17:43 Order name: O2 Per Protocol; Complete Time: 18:06 cp 06/07 17:43 Order name: O2 Sat Monitoring; Complete Time: 18:06 cp EC:02 Rate is 61 beats/min. Rhythm is regular. NV interval is normal. QRS interval is normal. cp QT interval is normal. T waves are Inverted in lead aVR. Interpreted by me. Reviewed by me. Administered Medications: 19:11 Drug: Ketorolac IVP 15 mg Route: IVP; Site: right antecubital; ll3 22:45 Follow up: Response: No adverse reaction; Pain is decreased ll3 Disposition Summary: 06/07/23 22:22 Discharge Ordered Location: Home cp Problem: new cp Symptoms: have improved cp Condition: Stable cp Diagnosis - Chest pain, unspecified cp - Bradycardia, unspecified cp Followup: cp - With: Private Physician - When: 2 - 3 days - Reason: Recheck today's complaints Discharge Instructions: - Discharge Summary Sheet cp - Bradycardia, Adult cp - Chest Wall Pain cp - Aspirin and Your Heart cp Forms: - Medication Reconciliation Form cp - Thank You Letter cp - Antibiotic Education cp - Prescription Opioid Use cp - Patient Portal Instructions cp - Leadership Thank You Letter cp Prescriptions: - Cyclobenzaprine 10 mg Oral Tablet - take 1 tablet by ORAL route every 8 hours As needed; 20 tablet; Refills: 0, cp Product Selection Permitted - Diclofenac Sodium 75 mg Oral Tablet Sustained Release - take 1 tablet by ORAL route 2 times per day; 30 tablet; Refills: 0, Product cp Selection Permitted Addendum: 06/10/2023 20:39 Co-signature as Attending Physician, Alex Culver MD I reviewed the patient's care r t provided by the Advanced Practice Provider and agree with the diagnosis and treatment plan. Signatures: Dispatcher [employer] EDOH Luis Carlos Galicia PA PA cp Peltier, Brian, RN RN bp Inessa Salguero RN RN ll3 Tarah Lafleur RN RN kc6 Alex Culver MD MD rt
--- NOTE | 2023-06-07 22:23 | ER ---
Nurse's Notes [facility] Name: Larry Morton Age: 37 yrs Sex: Female : 1985 Arrival Date: 06/07/2023 Time: 17:21 Bed 15 Private MD: Diagnosis: Chest pain, unspecified;Bradycardia, unspecified Presentation: 06/07 17:38 Chief complaint: Patient states: "ABOUT AN HOUR AGO I STARTED GETTING THIS SHARP PAIN bp IN MY SHOULDER WHEN I BREATHE DEEP". Coronavirus screen: At this time, the client does not indicate any symptoms associated with coronavirus-19. Ebola Screen: No symptoms or risks identified at this time. Initial Sepsis Screen: Does the patient meet any 2 criteria? No. Patient's initial sepsis screen is negative. Does the patient have a suspected source of infection? No. Patient's initial sepsis screen is negative. Risk Assessment: Do you want to hurt yourself or someone else? Patient reports no desire to harm self or others. Onset of symptoms was June 07, 2023 at 16:30. 17:38 Method Of Arrival: Ambulatory bp 17:38 Acuity: CELESTINO 3 bp Triage Assessment: 17:38 General: Appears in no apparent distress. Behavior is cooperative, appropriate for age, bp anxious. Pain: Complains of pain in right clavicle and anterior aspect of right upper chest. EENT: No deficits noted. Neuro: No deficits noted. Cardiovascular: Reports chest pain. Respiratory: No deficits noted. GI: No signs and/or symptoms were reported involving the gastrointestinal system. : No signs and/or symptoms were reported regarding the genitourinary system. Derm: No deficits noted. Musculoskeletal: No deficits noted. Historical: - Allergies: 17:34 No Known Allergies; kc6 - PMHx: 17:34 Anemia; CVA; High Cholesterol; hypotension; kc6 - PSHx: 17:34 Gastric Bypass; section; kc6 - Immunization history:: Adult Immunizations up to date. - Social history:: Smoking status: Patient denies any tobacco usage or history of. Screenin:06 [facility] ED Fall Risk Assessment (Adult) History of falling in the last 3 months, kc6 including since admission No falls in past 3 months (0 pts) Confusion or Disorientation No (0 pts) Intoxicated or Sedated No (0 pts) Impaired Gait No (0 pts) Mobility Assist Device Used No (0 pt) Altered Elimination No (0 pt) Score/Fall Risk Level 0 - 2 = Low Risk. Abuse screen: Denies threats or abuse. Denies injuries from another. Nutritional screening: No deficits noted. Tuberculosis screening: No symptoms or risk factors identified. Assessment: 17:45 General: Appears in no apparent distress. comfortable, Behavior is calm, cooperative, kc6 appropriate for age. Pain: Denies pain. Neuro: Level of Consciousness is awake, alert, obeys commands, Oriented to person, place, time, situation, Appropriate for age. Cardiovascular: Capillary refill < 3 seconds. Respiratory: Airway is patent Trachea midline Respiratory effort is even, unlabored, Respiratory pattern is regular, symmetrical. GI: No signs and/or symptoms were reported involving the gastrointestinal system. : No signs and/or symptoms were reported regarding the genitourinary system. EENT: No signs and/or symptoms were reported regarding the EENT system. Derm: No signs and/or symptoms reported regarding the dermatologic system. Skin is intact, is healthy with good turgor, Skin is pink, warm \\T\\ dry. Musculoskeletal: No signs and/or symptoms reported regarding the musculoskeletal system. Circulation, motion, and sensation intact. Capillary refill < 3 seconds, Range of motion: intact in all extremities. 18:07 Reassessment: pt requested to hold ordered 15mg Toradol stated the pain is not too bad kc6 right now. 18:57 Reassessment: Patient appears in no apparent distress at this time. No changes from kc6 previously documented assessment. Patient and/or family updated on plan of care and expected duration. Pain level reassessed. Patient is alert, oriented x 3, equal unlabored respirations, skin warm/dry/pink. Vital Signs: 17:38 BP 113 / 47; Pulse 55; Resp 16; Temp 98; Pulse Ox 100% ; bp 18:57 BP 111 / 64; Pulse 52; Resp 13 S; Pulse Ox 100% on R/A; kc6 21:17 BP 109 / 74; Pulse 46; Resp 18; Pulse Ox 100% on R/A; ll3 ED Course: 17:24 Patient arrived in ED. ts1 17:25 Luis Carlos Galicia PA is PHCP. cp 17:25 Alex Culver MD is Attending Physician. cp 17:36 Tarah Lafleur, RN is Primary Nurse. kc6 17:39 Triage completed. bp 17:42 Arm band placed on. bp 18:06 Patient has correct armband on for positive identification. Bed in low position. Call kc6 light in reach. Side rails up X 1. Adult w/ patient. 18:06 Inserted saline lock: 20 gauge in right antecubital area, using aseptic technique. kc6 Blood collected. 18:09 XRAY Chest (1 view) In Process Unspecified. EDMS 21:15 Troponin High Sensitivity: redraw \\T\\2100 Sent. ll3 22:45 No provider procedures requiring assistance completed. IV discontinued, intact, ll3 bleeding controlled, No redness/swelling at site. Pressure dressing applied. Administered Medications: 19:11 Drug: Ketorolac IVP 15 mg Route: IVP; Site: right antecubital; ll3 22:45 Follow up: Response: No adverse reaction; Pain is decreased ll3 Medication: 22:45 VIS not applicable for this client. ll3 Outcome: 22:22 Discharge ordered by MD. cp 22:45 Discharged to home ambulatory, with family. ll3 22:45 Condition: stable 22:45 Discharge instructions given to patient, family, Instructed on discharge instructions, follow up and referral plans. medication usage, Demonstrated understanding of instructions, follow-up care, medications, Prescriptions given X 2. 22:45 Patient left the ED. ll3 Signatures: Dispatcher [employer] EDMS Luis Carlos Galicia PA PA cp Peltier, Brian RN Inessa Dominguez RN RN ll3 Tarah Lafleur RN RN kc6 Angie Prasad PAS PAS ts1
[2023-06-07 23:37] VITALS: TEMP 98; O2SAT 100
[2023-06-07 23:40] VITALS: BP 109/74
--- NOTE | 2023-06-08 13:57 | EKG ---
Test Date: 2023-06-07 Test Time: 17:55:34 Building Rental Manager: YVETTE MEASUREMENT RESULTS: Intervals: Rate: 61 AL: 148 QRSD: 68 QT: 414 QTc: 416 Clyo: P: 69 AL: 148 QRS: 26 T: 33 INTERPRETIVE STATEMENTS: Sinus rhythm with marked sinus arrhythmia Low voltage QRS Cannot rule out Anterior infarct, age undetermined Abnormal ECG Compared to ECG 06/01/2023 23:39:51 Low QRS voltage now present Myocardial infarct finding now present Sinus bradycardia no longer present Electronically Signed On 06-08-23 13:55:20 CDT by Federico Loredo
== END 2023-06-07 22:45 | disposition home or self-care (01) ==
LOC: ER 17:21
DX: R07.89 Other chest pain (principal); R00.1 Bradycardia, unspecified; Z86.73 Personal history of transient ischemic attack (TIA), and cerebral infarction without residual deficits
CPT/HCPCS: 36415; 71045; 80048; 80076; 81015; 81025; 83735; 84484; 85025; 85379; 85610; 93005; 96374; 99284

== ENCOUNTER → 2023-11-14 | Emergency (ER) | payer OTHER ==
--- OUTSIDE RECORDS SUMMARY | 2023-11-14 09:59 | XMS REPORT | Continuity of Care Document ---
Author Name Unknown Address [address] [facility] [address] [place] [address] [facility] thconnect Address [address] [facility] [place] [address] Care Team Providers Care Graphics Editor Name Role Phone LOLA BAPTISTE Primary Care Physician UnavailMARGARITO Ward Attending Clinician MARGARITO Barron Attending Clinician UnavailLeandra Shah MD Attending Clinician [phone] Lola Goldstein Attending Clinician [phone] LOLA BAPTISTE Attending Clinician Unavailable Lab, Ang - Db Attending Clinician Unavailable Doctor Unassigned, [place] Attending Clinician U LEANDRA Soriano Attending Clinician Unavailable MITZI MCBRIDE Attending Clinician Unavailable Mitzi Mcbride MD Attending Clinician [phone] Sheryl Wooten PA-C Attending Clinician [phone] MITZI MCBRIDE Admitting Clinician Unavailable Payers Payer Name Policy Type Policy Number Effective Date Expirati on Date Source [employer] GENERIC [id number] 2022 00:00:00 2022-10 00:00:00 Problems Condition Name Condition Details Condition Category Status Onset Date Resolution Date Last Treatment Date Treating Clinician Comments Source Vitamin D deficiency Vitamin D deficiency Disease Active 07-09 00:00: 00 [facility] Obesity (BMI 30.0-34.9) Obesity (BMI 30.0-34.9) Disease Active 07-09 00:00: 00 [facility] Status post gastric bypass for obesity Status post gastric bypass for obesity Disease Active 07-09 00:00: 00 [facility] NSVT (nonsustai faith ventricula r tachycardi a) NSVT (nonsustai faith ventricula r tachycardi a) Disease Active 05-07 00:00: 00 [facility] PFO (patent foramen ovale) PFO (patent foramen ovale) Disease Active 05-07 00:00: 00 [facility] Obesity due to excess calories, unspecifie d classifica tion, unspecifie d whether serious comorbidit y present Obesity due to excess calories, unspecifie d classifica tion, unspecifie d whether serious comorbidit y present Disease Active 03-09 00:00: 00 [facility] Obesity due to excess calories, unspecifie d classifica tion, unspecifie d whether serious comorbidit y present Obesity due to excess calories, unspecifie d classifica tion, unspecifie d whether serious comorbidit y present Disease Active 03-09 00:00: 00 [facility] Orthostati c hypotensio n Orthostati c hypotensio n Disease Active 03-09 00:00: 00 [facility] Obesity (BMI 30-39.9) Obesity (BMI 30-39.9) Disease Active 03-09 00:00: 00 [facility] History of transient ischemic attack (TIA) History of transient ischemic attack (TIA) Disease Active 03-09 00:00: 00 [facility] Dizziness and giddiness Dizziness and giddiness Disease Active 03-09 00:00: 00 [facility] Sinus bradycardi a Sinus bradycardi a Disease Active 03-09 00:00: 00 [facility] Allergies, Adverse Reactions, Alerts Allergy Name Allergy Type Status Severity Reaction(s) Onset Date Inactive Date Treating Clinician Comments Source NO KNOWN ALLERGIE S Drug Class Active [facility] Social History Social Habit Start Date Stop Date Quantity Comments Source [facility] History SDOH Alcohol Binge [facility] Alcohol intake 2023-07-09 00:00:00 2023-07-09 00:00:00 Ex-drinker (finding) [facility] History of Social function 2023-05-07 00:00:00 2023-05-07 00:00:00 [facility] Tobacco use and exposure 2023-05-07 00:00:00 2023-05-07 00:00:00 Smokeless tobacco non-user [facility] Exposure to SARS-CoV-2 (event) 2023-02-27 00:00:00 2023-03-09 08:25:00 Not sure [facility] History SDOH Alcohol Frequency 2019-07-02 00:00:00 2019-07-02 00:00:00 1 [facility] Sex Assigned At 1985 00:00:00 1985 00:00:00 [facility] Smoking Status Start Date Stop Date Source Never smoked tobacco [facility] Medications Ordered Medication Name Filled Medication Name Start Date Stop Date Current Medication? Ordering Clinician Indication Dosage Frequency Signature (SIG) Comments Components Source midodrine 2.5 mg tablet 07-13 00:00: 00 Yes [id number] 2.5mg Take 1 tablet by mouth in the morning and 1 tablet at noon and 1 tablet in the evening. [facility] ferrous sulfate (IRON) 325 mg (65 mg iron) tablet 07-09 13:10: 07-09 00:00 :00 No 325mg Take 1 tablet by mouth in the morning and 1 tablet at noon and 1 tablet in the evening. Take with meals. [facility] ferrous sulfate (IRON) 325 mg (65 mg iron) tablet 07-09 13:10: 09 07-09 00:00 :00 No 325mg Take 1 tablet by mouth in the morning and 1 tablet at noon and 1 tablet in the evening. Take with meals. [facility] foLIC acid 1 mg tablet 2023-0 9-18 13:09: 20 Yes 1mg Take 1 tablet by mouth in the morning. [facility] foLIC acid 1 mg tablet 2023-0 9-18 13:09: 20 Yes 1mg Take 1 tablet by mouth in the morning. [facility] foLIC acid 1 mg tablet 2023-0 9-18 13:09: 20 Yes 1mg Take 1 tablet by mouth in the morning. [facility] foLIC acid 1 mg tablet 2023-0 9-18 13:09: 20 Yes 1mg Take 1 tablet by mouth in the morning. [facility] foLIC acid 1 mg tablet 3-0 9-18 13:09: 20 Yes 1mg Take 1 tablet by mouth in the morning. [facility] foLIC acid 1 mg tablet 3-0 9-18 13:09: 20 Yes 1mg Take 1 tablet by mouth in the morning. [facility] foLIC acid 1 mg tablet 3-0 9-18 13:09: 20 Yes 1mg Take 1 tablet by mouth in the morning. [facility] foLIC acid 1 mg tablet 3-0 -18 13:09: 20 Yes 1mg Take 1 tablet by mouth in the morning. [facility] foLIC acid 1 mg tablet 3-0 -18 13:09: 20 Yes 1mg Take 1 tablet by mouth in the morning. [facility] midodrine 2.5 mg tablet 2023-0 08 00:00: 00 Yes [id number] 2.5mg Take 1 tablet by mouth in the morning and 1 tablet at noon and 1 tablet in the evening. [facility] midodrine 2.5 mg tablet 2023-0 -08 00:00: 00 Yes [id number] 2.5mg Take 1 tablet by mouth in the morning and 1 tablet at noon and 1 tablet in the evening. [facility] midodrine 2.5 mg tablet 2023-0 - 00:00: 00 Yes [id number] 2.5mg Take 1 tablet by mouth in the morning and 1 tablet at noon and 1 tablet in the evening. [facility] midodrine 2.5 mg tablet 2023-0 - 00:00: 00 Yes [id number] 2.5mg Take 1 tablet by mouth in the morning and 1 tablet at noon and 1 tablet in the evening. [facility] midodrine 2.5 mg tablet 06-29 00:00: 00 Yes [id number] 2.5mg Take 1 tablet by mouth in the morning and 1 tablet at noon and 1 tablet in the evening. [facility] midodrine 2.5 mg tablet 06-29 00:00: 00 07-13 00:00 :00 No [id number] 2.5mg Take 1 tablet by mouth in the morning and 1 tablet at noon and 1 tablet in the evening. [facility] foLIC acid 1 mg tablet 06-22 06:59: 44 Yes 1mg Take 1 tablet by mouth in the morning. [facility] ferrous sulfate (IRON) 325 mg (65 mg iron) tablet 06-22 06:59: 44 Yes 325mg Take 1 tablet by mouth in the morning and 1 tablet at noon and 1 tablet in the evening. Take with meals. [facility] foLIC acid 1 mg tablet 06-22 06:59: 44 Yes 1mg Take 1 tablet by mouth in the morning. [facility] ferrous sulfate (IRON) 325 mg (65 mg iron) tablet 06-22 06:59: 44 Yes 325mg Take 1 tablet by mouth in the morning and 1 tablet at noon and 1 tablet in the evening. Take with meals. [facility] foLIC acid 1 mg tablet 06-22 06:59: 44 Yes 1mg Take 1 tablet by mouth in the morning. [facility] ferrous sulfate (IRON) 325 mg (65 mg iron) tablet 0 06-22 06:59: 44 Yes 325mg Take 1 tablet by mouth in the morning and 1 tablet at noon and 1 tablet in the evening. Take with meals. [facility] foLIC acid 1 mg tablet 0 06-22 06:59: 44 Yes 1mg Take 1 tablet by mouth in the morning. [facility] ferrous sulfate (IRON) 325 mg (65 mg iron) tablet 06-22 06:59: 44 Yes 325mg Take 1 tablet by mouth in the morning and 1 tablet at noon and 1 tablet in the evening. Take with meals. [facility] foLIC acid 1 mg tablet 0 06-22 06:59: 44 Yes 1mg Take 1 tablet by mouth in the morning. [facility] ferrous sulfate (IRON) 325 mg (65 mg iron) tablet 0 06-22 06:59: 44 Yes 325mg Take 1 tablet by mouth in the morning and 1 tablet at noon and 1 tablet in the evening. Take with meals. [facility] foLIC acid 1 mg tablet 0 06-22 06:59: 44 Yes 1mg Take 1 tablet by mouth in the morning. [facility] ferrous sulfate (IRON) 325 mg (65 mg iron) tablet 0 06-22 06:59: 44 Yes 325mg Take 1 tablet by mouth in the morning and 1 tablet at noon and 1 tablet in the evening. Take with meals. [facility] foLIC acid 1 mg tablet 06-22 06:59: 44 Yes 1mg Take 1 tablet by mouth in the morning. [facility] ferrous sulfate (IRON) 325 mg (65 mg iron) tablet 06-22 06:59: 44 Yes 325mg Take 1 tablet by mouth in the morning and 1 tablet at noon and 1 tablet in the evening. Take with meals. [facility] midodrine 2.5 mg tablet 2022-0 05-31 00:00: 00 Yes [id number] 2.5mg Take 1 tablet by mouth in the morning and 1 tablet at noon and 1 tablet in the evening. [facility] midodrine 2.5 mg tablet 3-0 05-31 00:00: 00 Yes [id number] 2.5mg Take 1 tablet by mouth in the morning and 1 tablet at noon and 1 tablet in the evening. [facility] midodrine 2.5 mg tablet 2022-0 05-31 00:00: 00 Yes [id number] 2.5mg Take 1 tablet by mouth in the morning and 1 tablet at noon and 1 tablet in the evening. [facility] midodrine 2.5 mg tablet 3-0 8-10 00:00: 00 Yes [id number] 2.5mg Take 1 tablet by mouth in the morning and 1 tablet at noon and 1 tablet in the evening. [facility] midodrine 2.5 mg tablet 3-0 8-10 00:00: 00 Yes [id number] 2.5mg Take 1 tablet by mouth in the morning and 1 tablet at noon and 1 tablet in the evening. [facility] midodrine 2.5 mg tablet 3-0 8-10 00:00: 00 Yes [id number] 2.5mg Take 1 tablet by mouth in the morning and 1 tablet at noon and 1 tablet in the evening. [facility] midodrine 2.5 mg tablet 3-0 8-10 00:00: 00 Yes [id number] 2.5mg Take 1 tablet by mouth in the morning and 1 tablet at noon and 1 tablet in the evening. [facility] midodrine 2.5 mg tablet 2022-0 8-10 00:00: 00 Yes [id number] 2.5mg Take 1 tablet by mouth in the morning and 1 tablet at noon and 1 tablet in the evening. [facility] midodrine 2.5 mg tablet 2022-0 8-10 00:00: 00 06-29 00:00 :00 No [id number] 2.5mg Take 1 tablet by mouth in the morning and 1 tablet at noon and 1 tablet in the evening. [facility] midodrine 2.5 mg tablet 2022-0 7-17 00:00: 00 Yes [id number] 2.5mg Take 1 tablet by mouth in the morning and 1 tablet at noon and 1 tablet in the evening. [facility] midodrine 2.5 mg tablet 3-0 7-17 00:00: 00 Yes [id number] 2.5mg Take 1 tablet by mouth in the morning and 1 tablet at noon and 1 tablet in the evening. [facility] midodrine 2.5 mg tablet 3-0 7-17 00:00: 00 Yes [id number] 2.5mg Take 1 tablet by mouth in the morning and 1 tablet at noon and 1 tablet in the evening. [facility] midodrine 2.5 mg tablet 0 7-17 00:00: 00 05-31 00:00 :00 No [id number] 2.5mg Take 1 tablet by mouth in the morning and 1 tablet at noon and 1 tablet in the evening. [facility] foLIC acid 1 mg tablet 2022-0 19 08:45: 47 Yes 1mg Take 1 tablet by mouth in the morning. [facility] ferrous sulfate (IRON) 325 mg (65 mg iron) tablet 0 03-09 08:45: 47 Yes 325mg Take 1 tablet by mouth in the morning and 1 tablet at noon and 1 tablet in the evening. Take with meals. [facility] foLIC acid 1 mg tablet 2022-0 03-09 08:45: 47 Yes 1mg Take 1 tablet by mouth in the morning. [facility] ferrous sulfate (IRON) 325 mg (65 mg iron) tablet 0 03-09 08:45: 47 Yes 325mg Take 1 tablet by mouth in the morning and 1 tablet at noon and 1 tablet in the evening. Take with meals. [facility] foLIC acid 1 mg tablet 0 03-09 08:45: 47 Yes 1mg Take 1 tablet by mouth in the morning. [facility] ferrous sulfate (IRON) 325 mg (65 mg iron) tablet 0 03-09 08:45: 47 Yes 325mg Take 1 tablet by mouth in the morning and 1 tablet at noon and 1 tablet in the evening. Take with meals. [facility] foLIC acid 1 mg tablet 2022-0 03-09 08:45: 47 Yes 1mg Take 1 tablet by mouth in the morning. [facility] ferrous sulfate (IRON) 325 mg (65 mg iron) tablet 0 03-09 08:45: 47 Yes 325mg Take 1 tablet by mouth in the morning and 1 tablet at noon and 1 tablet in the evening. Take with meals. [facility] foLIC acid 1 mg tablet 2022-0 19 08:45: 47 Yes 1mg Take 1 tablet by mouth in the morning. [facility] ferrous sulfate (IRON) 325 mg (65 mg iron) tablet 03-09 08:45: 47 Yes 325mg Take 1 tablet by mouth in the morning and 1 tablet at noon and 1 tablet in the evening. Take with meals. [facility] foLIC acid 1 mg tablet 0 03-09 08:45: 47 Yes 1mg Take 1 tablet by mouth in the morning. [facility] ferrous sulfate (IRON) 325 mg (65 mg iron) tablet 0 03-09 08:45: 47 Yes 325mg Take 1 tablet by mouth in the morning and 1 tablet at noon and 1 tablet in the evening. Take with meals. [facility] foLIC acid 1 mg tablet 03-09 08:45: 47 Yes 1mg Take 1 tablet by mouth in the morning. [facility] ferrous sulfate (IRON) 325 mg (65 mg iron) tablet 03-09 08:45: 47 Yes 325mg Take 1 tablet by mouth in the morning and 1 tablet at noon and 1 tablet in the evening. Take with meals. [facility] foLIC acid 1 mg tablet 03-09 08:45: 47 Yes 1mg Take 1 tablet by mouth in the morning. [facility] ferrous sulfate (IRON) 325 mg (65 mg iron) tablet 03-09 08:45: 47 Yes 325mg Take 1 tablet by mouth in the morning and 1 tablet at noon and 1 tablet in the evening. Take with meals. [facility] foLIC acid 1 mg tablet 0 03-09 08:45: 47 Yes 1mg Take 1 tablet by mouth in the morning. [facility] ferrous sulfate (IRON) 325 mg (65 mg iron) tablet 0 03-09 08:45: 47 Yes 325mg Take 1 tablet by mouth in the morning and 1 tablet at noon and 1 tablet in the evening. Take with meals. [facility] foLIC acid 1 mg tablet 0 03-09 08:45: 47 Yes 1mg Take 1 tablet by mouth in the morning. [facility] ferrous sulfate (IRON) 325 mg (65 mg iron) tablet 0 03-09 08:45: 47 Yes 325mg Take 1 tablet by mouth in the morning and 1 tablet at noon and 1 tablet in the evening. Take with meals. [facility] foLIC acid 1 mg tablet 0 03-09 08:45: 47 Yes 1mg Take 1 tablet by mouth in the morning. [facility] ferrous sulfate (IRON) 325 mg (65 mg iron) tablet 0 03-09 08:45: 47 Yes 325mg Take 1 tablet by mouth in the morning and 1 tablet at noon and 1 tablet in the evening. Take with meals. [facility] foLIC acid 1 mg tablet 0 03-09 08:45: 47 Yes 1mg Take 1 tablet by mouth in the morning. [facility] ferrous sulfate (IRON) 325 mg (65 mg iron) tablet 0 03-09 08:45: 47 Yes 325mg Take 1 tablet by mouth in the morning and 1 tablet at noon and 1 tablet in the evening. Take with meals. [facility] foLIC acid 1 mg tablet 03-09 08:45: 47 Yes 1mg Take 1 tablet by mouth in the morning. [facility] ferrous sulfate (IRON) 325 mg (65 mg iron) tablet 03-09 08:45: 47 Yes 325mg Take 1 tablet by mouth in the morning and 1 tablet at noon and 1 tablet in the evening. Take with meals. [facility] foLIC acid 1 mg tablet 0 03-09 08:45: 47 Yes 1mg Take 1 tablet by mouth in the morning. [facility] ferrous sulfate (IRON) 325 mg (65 mg iron) tablet 0 03-09 08:45: 47 Yes 325mg Take 1 tablet by mouth in the morning and 1 tablet at noon and 1 tablet in the evening. Take with meals. [facility] foLIC acid 1 mg tablet 2022-0 03-09 08:45: 47 Yes 1mg Take 1 tablet by mouth in the morning. [facility] ferrous sulfate (IRON) 325 mg (65 mg iron) tablet 0 03-09 08:45: 47 Yes 325mg Take 1 tablet by mouth in the morning and 1 tablet at noon and 1 tablet in the evening. Take with meals. [facility] foLIC acid 1 mg tablet 2022-0 03-09 08:45: 47 Yes 1mg Take 1 tablet by mouth in the morning. [facility] ferrous sulfate (IRON) 325 mg (65 mg iron) tablet 2022-0 03-09 08:45: 47 Yes 325mg Take 1 tablet by mouth in the morning and 1 tablet at noon and 1 tablet in the evening. Take with meals. [facility] foLIC acid 1 mg tablet 2022-0 03-09 08:45: 47 Yes 1mg Take 1 tablet by mouth in the morning. [facility] ferrous sulfate (IRON) 325 mg (65 mg iron) tablet 2022-0 03-09 08:45: 47 Yes 325mg Take 1 tablet by mouth in the morning and 1 tablet at noon and 1 tablet in the evening. Take with meals. [facility] foLIC acid 1 mg tablet 2022-0 03-09 08:45: 47 Yes 1mg Take 1 tablet by mouth in the morning. [facility] ferrous sulfate (IRON) 325 mg (65 mg iron) tablet 2022-0 03-09 08:45: 47 Yes 325mg Take 1 tablet by mouth in the morning and 1 tablet at noon and 1 tablet in the evening. Take with meals. [facility] aspirin 81 mg EC tablet 2022-0 04 00:00: 00 Yes 81mg Take 1 tablet by mouth in the morning. [facility] aspirin 81 mg EC tablet 2022-0 -04 00:00: 00 Yes 81mg Take 1 tablet by mouth in the morning. [facility] aspirin 81 mg EC tablet 3-0 -04 00:00: 00 Yes 81mg Take 1 tablet by mouth in the morning. [facility] aspirin 81 mg EC tablet 3-0 -04 00:00: 00 Yes 81mg Take 1 tablet by mouth in the morning. [facility] aspirin 81 mg EC tablet 3-0 5-04 00:00: 00 Yes 81mg Take 1 tablet by mouth in the morning. [facility] aspirin 81 mg EC tablet 2022-0 -04 00:00: 00 Yes 81mg Take 1 tablet by mouth in the morning. [facility] 81 mg EC tablet 3-0 5-04 00:00: 00 Yes 81mg Take 1 tablet by mouth in the morning. [facility] aspirin 81 mg EC tablet 3-0 5-04 00:00: 00 Yes 81mg Take 1 tablet by mouth in the morning. [facility] aspirin 81 mg EC tablet 3-0 5-04 00:00: 00 Yes 81mg Take 1 tablet by mouth in the morning. [facility] aspirin 81 mg EC tablet 3-0 5-04 00:00: 00 Yes 81mg Take 1 tablet by mouth in the morning. [facility] aspirin 81 mg EC tablet 3-0 -04 00:00: 00 Yes 81mg Take 1 tablet by mouth in the morning. [facility] aspirin 81 mg EC tablet 3-0 5-04 00:00: 00 Yes 81mg Take 1 tablet by mouth in the morning. [facility] aspirin 81 mg EC tablet 3-0 -04 00:00: 00 Yes 81mg Take 1 tablet by mouth in the morning. [facility] aspirin 81 mg EC tablet 3-0 5-04 00:00: 00 Yes 81mg Take 1 tablet by mouth in the morning. [facility] aspirin 81 mg EC tablet 3-0 5-04 00:00: 00 Yes 81mg Take 1 tablet by mouth in the morning. [facility] aspirin 81 mg EC tablet 3-0 5-04 00:00: 00 Yes 81mg Take 1 tablet by mouth in the morning. [facility] aspirin 81 mg EC tablet 3-0 5-04 00:00: 00 Yes 81mg Take 1 tablet by mouth in the morning. [facility] aspirin 81 mg EC tablet 3-0 5-04 00:00: 00 Yes 81mg Take 1 tablet by mouth in the morning. [facility] aspirin 81 mg EC tablet 3-0 5-04 00:00: 00 Yes 81mg Take 1 tablet by mouth in the morning. [facility] aspirin 81 mg EC tablet 3-0 -04 00:00: 00 Yes 81mg Take 1 tablet by mouth in the morning. [facility] aspirin 81 mg EC tablet 3-0 5-04 00:00: 00 Yes 81mg Take 1 tablet by mouth in the morning. [facility] aspirin 81 mg EC tablet 3-0 5-04 00:00: 00 Yes 81mg Take 1 tablet by mouth in the morning. [facility] aspirin 81 mg EC tablet 3-0 5-04 00:00: 00 Yes 81mg Take 1 tablet by mouth in the morning. [facility] aspirin 81 mg EC tablet 3-0 5-04 00:00: 00 Yes 81mg Take 1 tablet by mouth in the morning. [facility] aspirin 81 mg EC tablet 3-0 5-04 00:00: 00 Yes 81mg Take 1 tablet by mouth in the morning. [facility] aspirin 81 mg EC tablet 3-0 5-04 00:00: 00 Yes 81mg Take 1 tablet by mouth in the morning. [facility] aspirin 81 mg EC tablet 3-0 5-04 00:00: 00 Yes 81mg Take 1 tablet by mouth in the morning. [facility] aspirin 81 mg EC tablet 3-0 5-04 00:00: 00 Yes 81mg Take 1 tablet by mouth in the morning. [facility] aspirin 81 mg EC tablet 3-0 5-04 00:00: 00 Yes 81mg Take 1 tablet by mouth in the morning. [facility] aspirin 81 mg EC tablet 3-0 5-04 00:00: 00 Yes 81mg Take 1 tablet by mouth in the morning. [facility] aspirin 81 mg EC tablet 3-0 5-04 00:00: 00 Yes 81mg Take 1 tablet by mouth in the morning. [facility] aspirin 81 mg EC tablet 3-0 5-04 00:00: 00 Yes 81mg Take 1 tablet by mouth in the morning. [facility] aspirin 81 mg EC tablet 3-0 5-04 00:00: 00 Yes 81mg Take 1 tablet by mouth in the morning. [facility] aspirin 81 mg EC tablet 2022-0 504 00:00: 00 Yes 81mg Take 1 tablet by mouth in the morning. [facility] atorvastati n 40 mg tablet 2022-0 27 00:00: 00 Yes 40mg Take 1 tablet by mouth at bedtime. [facility] atorvastati n 40 mg tablet 2022-0 27 00:00: 00 Yes 40mg Take 1 tablet by mouth at bedtime. [facility] atorvastati n 40 mg tablet 2022-0 02-15 00:00: 00 Yes 40mg Take 1 tablet by mouth at bedtime. [facility] atorvastati n 40 mg tablet 2022-0 02-15 00:00: 00 Yes 40mg Take 1 tablet by mouth at bedtime. [facility] atorvastati n 40 mg tablet 2022-0 02-15 00:00: 00 Yes 40mg Take 1 tablet by mouth at bedtime. [facility] atorvastati n 40 mg tablet 2022-0 02-15 00:00: 00 Yes 40mg Take 1 tablet by mouth at bedtime. [facility] atorvastati n 40 mg tablet 2022-0 02-15 00:00: 00 Yes 40mg Take 1 tablet by mouth at bedtime. [facility] atorvastati n 40 mg tablet 2022-0 02-15 00:00: 00 Yes 40mg Take 1 tablet by mouth at bedtime. [facility] atorvastati n 40 mg tablet 2022-0 27 00:00: 00 Yes 40mg Take 1 tablet by mouth at bedtime. [facility] atorvastati n 40 mg tablet 3-0 27 00:00: 00 Yes 40mg Take 1 tablet by mouth at bedtime. [facility] atorvastati n 40 mg tablet 2022-0 27 00:00: 00 Yes 40mg Take 1 tablet by mouth at bedtime. [facility] atorvastati n 40 mg tablet 3-0 27 00:00: 00 Yes 40mg Take 1 tablet by mouth at bedtime. [facility] atorvastati n 40 mg tablet 2022-0 02-15 00:00: 00 Yes 40mg Take 1 tablet by mouth at bedtime. [facility] atorvastati n 40 mg tablet 2022-0 02-15 00:00: 00 Yes 40mg Take 1 tablet by mouth at bedtime. [facility] atorvastati n 40 mg tablet 2022-0 02-15 00:00: 00 Yes 40mg Take 1 tablet by mouth at bedtime. [facility] atorvastati n 40 mg tablet 2022-0 02-15 00:00: 00 Yes 40mg Take 1 tablet by mouth at bedtime. [facility] atorvastati n 40 mg tablet 2022-0 02-15 00:00: 00 Yes 40mg Take 1 tablet by mouth at bedtime. [facility] atorvastati n 40 mg tablet 2022-0 02-15 00:00: 00 Yes 40mg Take 1 tablet by mouth at bedtime. [facility] atorvastati n 40 mg tablet 2022-0 02-15 00:00: 00 Yes 40mg Take 1 tablet by mouth at bedtime. [facility] atorvastati n 40 mg tablet 2022-0 02-15 00:00: 00 Yes 40mg Take 1 tablet by mouth at bedtime. [facility] atorvastati n 40 mg tablet 2022-0 02-15 00:00: 00 Yes 40mg Take 1 tablet by mouth at bedtime. [facility] atorvastati n 40 mg tablet 2022-0 02-15 00:00: 00 Yes 40mg Take 1 tablet by mouth at bedtime. [facility] atorvastati n 40 mg tablet 2022-0 02-15 00:00: 00 Yes 40mg Take 1 tablet by mouth at bedtime. [facility] atorvastati n 40 mg tablet 3-0 02-15 00:00: 00 Yes 40mg Take 1 tablet by mouth at bedtime. [facility] atorvastati n 40 mg tablet 3-0 02-15 00:00: 00 Yes 40mg Take 1 tablet by mouth at bedtime. [facility] atorvastati n 40 mg tablet 02-15 00:00: 00 Yes 40mg Take 1 tablet by mouth at bedtime. [facility] atorvastati n 40 mg tablet 02-15 00:00: 00 Yes 40mg Take 1 tablet by mouth at bedtime. [facility] atorvastati n 40 mg tablet 0 02-15 00:00: 00 Yes 40mg Take 1 tablet by mouth at bedtime. [facility] atorvastati n 40 mg tablet 0 02-15 00:00: 00 Yes 40mg Take 1 tablet by mouth at bedtime. [facility] atorvastati n 40 mg tablet 02-15 00:00: 00 Yes 40mg Take 1 tablet by mouth at bedtime. [facility] atorvastati n 40 mg tablet 0 02-15 00:00: 00 Yes 40mg Take 1 tablet by mouth at bedtime. [facility] atorvastati n 40 mg tablet 02-15 00:00: 00 Yes 40mg Take 1 tablet by mouth at bedtime. [facility] atorvastati n 40 mg tablet 02-15 00:00: 00 Yes 40mg Take 1 tablet by mouth at bedtime. [facility] atorvastati n 40 mg tablet 02-15 00:00: 00 Yes 40mg Take 1 tablet by mouth at bedtime. [facility] ibuprofen (MOTRIN) 600 mg tablet 05-02 00:00: 00 Yes 600mg Take 1 tablet by mouth every 6 (six) hours as needed for Pain (scale 4-6). [facility] ibuprofen (MOTRIN) 600 mg tablet 05-02 00:00: 00 Yes 600mg Take 1 tablet by mouth every 6 (six) hours as needed for Pain (scale 4-6). [facility] ibuprofen (MOTRIN) 600 mg tablet 05-02 00:00: 00 Yes 600mg Take 1 tablet by mouth every 6 (six) hours as needed for Pain (scale 4-6). [facility] 600 mg tablet 05-02 00:00: 00 Yes 600mg Take 1 tablet by mouth every 6 (six) hours as needed for Pain (scale 4-6). [facility]MOTRIN) 600 mg tablet 05-02 00:00: 00 Yes 600mg Take 1 tablet by mouth every 6 (six) hours as needed for Pain (scale 4-6). [facility] (MOTRIN) 600 mg tablet 05-02 00:00: 00 Yes 600mg Take 1 tablet by mouth every 6 (six) hours as needed for Pain (scale 4-6). [facility]OT[facility]IN) 600 mg tablet 05-02 00:00: 00 Yes 600mg Take 1 tablet by mouth every 6 (six) hours as needed for Pain (scale 4-6). [facility]MOTRIN) 600 mg tablet 05-02 00:00: 00 Yes 600mg Take 1 tablet by mouth every 6 (six) hours as needed for Pain (scale 4-6). [facility] ib[facility]fen (MOTRIN) 600 mg tablet 05-02 00:00: 00 Yes 600mg Take 1 tablet by mouth every 6 (six) hours as needed for Pain (scale 4-6). [facility] ib[facility]fen (MOTRIN) 600 mg tablet 05-02 00:00: 00 Yes 600mg Take 1 tablet by mouth every 6 (six) hours as needed for Pain (scale 4-6). [facility] ib[facility]rofen (MOTRIN) 600 mg tablet 05-02 00:00: 00 Yes 600mg Take 1 tablet by mouth every 6 (six) hours as needed for Pain (scale 4-6). [facility] ib[facility]rofen (MOTRIN) 600 mg tablet 05-02 00:00: 00 Yes 600mg Take 1 tablet by mouth every 6 (six) hours as needed for Pain (scale 4-6). [facility] ib[facility]fen (MOTRIN) 600 mg tablet 05-02 00:00: 00 Yes 600mg Take 1 tablet by mouth every 6 (six) hours as needed for Pain (scale 4-6). [facility]fen [facility]MOT[facility]IN) 600 mg tablet 05-02 00:00: 00 Yes 600mg Take 1 tablet by mouth every 6 (six) hours as needed for Pain (scale 4-6). [facility] ibuprofen (MOTRIN) 600 mg tablet 05-02 00:00: 00 Yes 600mg Take 1 tablet by mouth every 6 (six) hours as needed for Pain (scale 4-6). [facility] ib[facility]rofen (MOTRIN) 600 mg tablet 05-02 00:00: 00 Yes 600mg Take 1 tablet by mouth every 6 (six) hours as needed for Pain (scale 4-6). [facility] ibuprofen (MOTRIN) 600 mg tablet 05-02 00:00: 00 Yes 600mg Take 1 tablet by mouth every 6 (six) hours as needed for Pain (scale 4-6). [facility] ibuprofen (MOTRIN) 600 mg tablet 05-02 00:00: 00 Yes 600mg Take 1 tablet by mouth every 6 (six) hours as needed for Pain (scale 4-6). [facility] ib[facility]rofen (MOTRIN) 600 mg tablet 05-02 00:00: 00 Yes 600mg Take 1 tablet by mouth every 6 (six) hours as needed for Pain (scale 4-6). [facility] ibuprofen (MOTRIN) 600 mg tablet 05-02 00:00: 00 Yes 600mg Take 1 tablet by mouth every 6 (six) hours as needed for Pain (scale 4-6). [facility] ib[facility]fen (MOTRIN) 600 mg tablet 05-02 00:00: 00 Yes 600mg Take 1 tablet by mouth every 6 (six) hours as needed for Pain (scale 4-6). [facility] ibuprofen (MOTRIN) 600 mg tablet 05-02 00:00: 00 Yes 600mg Take 1 tablet by mouth every 6 (six) hours as needed for Pain (scale 4-6). [facility] ibuprofen (MOTRIN) 600 mg tablet 05-02 00:00: 00 Yes 600mg Take 1 tablet by mouth every 6 (six) hours as needed for Pain (scale 4-6). [facility] ibuprofen (MOTRIN) 600 mg tablet 05-02 00:00: 00 Yes 600mg Take 1 tablet by mouth every 6 (six) hours as needed for Pain (scale 4-6). [facility] ibuprofen (MOTRIN) 600 mg tablet 05-02 00:00: 00 Yes 600mg Take 1 tablet by mouth every 6 (six) hours as needed for Pain (scale 4-6). [facility] ibuprofen (MOTRIN) 600 mg tablet 05-02 00:00: 00 Yes 600mg Take 1 tablet by mouth every 6 (six) hours as needed for Pain (scale 4-6). [facility] ibuprofen (MOTRIN) 600 mg tablet 05-02 00:00: 00 Yes 600mg Take 1 tablet by mouth every 6 (six) hours as needed for Pain (scale 4-6). [facility] ibuprofen (MOTRIN) 600 mg tablet 05-02 00:00: 00 Yes 600mg Take 1 tablet by mouth every 6 (six) hours as needed for Pain (scale 4-6). [facility] ibuprofen (MOTRIN) 600 mg tablet 05-02 00:00: 00 Yes 600mg Take 1 tablet by mouth every 6 (six) hours as needed for Pain (scale 4-6). [facility] ibuprofen (MOTRIN) 600 mg tablet 05-02 00:00: 00 Yes 600mg Take 1 tablet by mouth every 6 (six) hours as needed for Pain (scale 4-6). [facility] ibuprofen (MOTRIN) 600 mg tablet 05-02 00:00: 00 Yes 600mg Take 1 tablet by mouth every 6 (six) hours as needed for Pain (scale 4-6). [facility] ibuprofen (MOTRIN) 600 mg tablet 05-02 00:00: 00 07-09 00:00 :00 No 600mg Take 1 tablet by mouth every 6 (six) hours as needed for Pain (scale 4-6). [facility] ibuprofen (MOTRIN) 600 mg tablet 2015-0 -12 00:00: 00 07-09 00:00 :00 No 600mg Take 1 tablet by mouth every 6 (six) hours as needed for Pain (scale 4-6). [facility] Immunizations Ordered Immunization Name Filled Immunization Name Date Status Comments Source SARS-COV-2 COVID-19 PFIZER VACCINE 2021-05-14 00:00:00 Completed [facility] SARS-COV-2 COVID-19 PFIZER VACCINE 2021-05-14 00:00:00 Completed [facility] SARS-COV-2 COVID-19 PFIZER VACCINE 2021-04-22 00:00:00 Completed [facility] SARS-COV-2 COVID-19 PFIZER VACCINE 2021-04-22 00:00:00 Completed [facility] SARS-COV-2 COVID-19 PFIZER VACCINE Unknown Completed [facility] SARS-COV-2 COVID-19 PFIZER VACCINE Unknown Completed [facility] SARS-COV-2 COVID-19 PFIZER VACCINE Unknown Completed [facility] SARS-COV-2 COVID-19 PFIZER VACCINE Unknown Completed [facility] SARS-COV-2 COVID-19 PFIZER VACCINE Unknown Completed [facility] SARS-COV-2 COVID-19 PFIZER VACCINE Unknown Completed [facility] SARS-COV-2 COVID-19 PFIZER VACCINE Unknown Completed [facility] SARS-COV-2 COVID-19 PFIZER VACCINE Unknown Completed [facility] SARS-COV-2 COVID-19 PFIZER VACCINE Unknown Completed [facility] SARS-COV-2 COVID-19 PFIZER VACCINE Unknown Completed [facility] SARS-COV-2 COVID-19 PFIZER VACCINE Unknown Completed [facility] SARS-COV-2 COVID-19 PFIZER VACCINE Unknown Completed [facility] SARS-COV-2 COVID-19 PFIZER VACCINE Unknown Completed [facility] SARS-COV-2 COVID-19 PFIZER VACCINE Unknown Completed [facility] Vital Signs Vital Name Observation Time Observation Value Comments S ource Systolic blood pressure 2023-07-09 18:10:00 104 mm[Hg] [facility] Diastolic blood pressure 2023-07-09 18:10:00 67 mm[Hg] [facility] Heart rate 2023-07-09 18:10:00 65 /min [facility] Body height 2023-07-09 18:10:00 162.6 cm [facility] Body weight 2023-07-09 18:10:00 89.359 kg [facility] BMI 2023-07-09 18:10:00 33.81 kg/m2 [facility] Oxygen saturation in Arterial blood by Pulse oximetry 2023-07-09 18:10:00 100 /min [facility] Body height 2023-06-22 13:51:00 162.6 cm [facility] Body weight 2023-06-22 13:51:00 86.183 kg [facility] BMI 2023-06-22 13:51:00 32.61 kg/m2 [facility] Systolic blood pressure 2023-06-22 13:15:00 121 mm[Hg] [facility] Diastolic blood pressure 2023-06-22 13:15:00 72 mm[Hg] [facility] Heart rate 2023-06-22 13:15:00 60 /min [facility] Respiratory rate 2023-06-22 13:15:00 21 /min [facility] Oxygen saturation in Arterial blood by Pulse oximetry 2023-06-22 13:15:00 100 /min [facility] Body temperature 2023-06-22 12:05:00 36.61 Wen [facility] Systolic blood pressure 2023-06-16 03:00:00 103 mm[Hg] [facility] Diastolic blood pressure 2023-06-16 03:00:00 61 mm[Hg] [facility] Heart rate 2023-06-16 03:00:00 72 /min [facility] Respiratory rate 2023-06-16 03:00:00 16 /min [facility] Oxygen saturation in Arterial blood by Pulse oximetry 2023-06-16 03:00:00 98 /min [facility] Body temperature 2023-06-15 23:57:00 37.22 Wen [facility] Body height 2023-06-15 23:57:00 162.6 cm [facility] 2023-06-15 23:57:00 86.183 kg [facility] BMI 2023-06-15 23:57:00 32.61 kg/m2 [facility] Systolic blood pressure 2023-05-07 19:25:00 107 mm[Hg] [facility] Diastolic blood pressure 2023-05-07 19:25:00 70 mm[Hg] [facility] Heart rate 2023-05-07 19:25:00 54 /min [facility] Respiratory rate 2023-05-07 19:25:00 16 /min [facility] Body height 2023-05-07 19:25:00 162.6 cm [facility] Body weight 2023-05-07 19:25:00 86.592 kg [facility] BMI 2023-05-07 19:25:00 32.77 kg/m2 [facility] Oxygen saturation in Arterial blood by Pulse oximetry 2023-05-07 19:25:00 98 /min [facility] Systolic blood pressure 2023-03-09 13:52:00 110 mm[Hg] [facility] Diastolic blood pressure 2023-03-09 13:52:00 68 mm[Hg] [facility] Heart rate 2023-03-09 13:52:00 71 /min [facility] Body height 2023-03-09 13:52:00 162.6 cm [facility] Body weight 2023-03-09 13:52:00 85.957 kg [facility] BMI 2023-03-09 13:52:00 32.53 kg/m2 [facility] Oxygen saturation in Arterial blood by Pulse oximetry 2023-03-09 13:52:00 99 /min [facility] Systolic blood pressure 2019-07-02 20:30:00 137 mm[Hg] [facility] Diastolic blood pressure 2019-07-02 20:30:00 91 mm[Hg] [facility] Heart rate 2019-07-02 20:30:00 90 /min [facility] Body temperature 2019-07-02 20:30:00 36.83 Wen [facility] Respiratory rate 2019-07-02 20:30:00 18 /min [facility] Body height 2019-07-02 20:30:00 162.6 cm [facility] Body weight 2019-07-02 20:30:00 155.13 kg [facility] BMI 2019-07-02 20:30:00 58.70 kg/m2 [facility] Procedures Procedure Date / Time Performed Performing Clinician Source MEDICAL RELEASE/CLEARANCE FORMS 2023-07-11 05:01:00 Doctor Unassigned, [place] [facility] TRANSESOPHAGEAL ECHO (JAYNA) COMPLETE W/ DOPPLER AND COLOR 2023-06-22 12:39:00 Leandra Biggs [facility] TRANSESOPHAGEAL ECHO 2023-06-22 05:01:00 Doctor Unassigned, [place] [facility] CT HEAD WO CONTRAST 2023-06-16 02:18:15 Mitzi Mcbride [facility] TROPONIN I 2023-06-16 01:41:00 Mitzi Mcbride [facility] COMP. METABOLIC PANEL (21277) 2023-06-16 01:41:00 Mitzi Mcbride [facility] CBC WITH DIFF 2023-06-16 01:41:00 [facility]-B[facility] 2023-06-16 01:41:00 Mitzi Mcbride [facility] POCT TEST 2023-06-16 01:31:00 Mitzi Mcbride [facility] URINALYSIS 2023-06-16 01:29:00 Mitzi Mcbride [facility] INSURANCE CORRESPONDENCE 2023-04-20 05:01:00 Doc tor Unassigned, [place] [facility] PHYSICIAN CERTIFICATION STATEMENT 2023-04-07 05:01:00 Doctor Unassigned, [place] [facility] HB ECG ROUTINE & RHYTHM STRIP 2023-03-09 13:49:18 Leandra Biggs [facility] CONSENT/REFUSAL FOR DIAGNOSIS AND TREATMENT 2023-03-09 13:26:58 Doctor Unassigned, [place] [facility] REFERRAL- REQUEST/RESPONSE 2023-03-01 05:01:00 Shagufta pickard Unassigned, [place] [facility] Encounters Start Date/Time End Date/Time Encounter Type Admission Type Attending [facility] Care Facility Care Department Encounter ID Source 2023-08-13 15:30:00 2023-08-13 15:30:00 Outpatient MARGARITO BULLOCK [facility] [id number] [facility] 2023-07-13 00:00:00 2023-07-13 00:00:00 [facility] 1.2.840.114 350.1.13.10 4.2.7.2.686 [id number] [facility] 2023-07-12 00:00:00 2023-07-12 00:00:00 [facility] 1.2.840.114 350.1.13.10 4.2.7.2.686 [id number] [facility] 2023-07-12 00:00:00 2023-07-12 00:00:00 Patient Secure g [facility] 1.2.840.114 350.1.13.10 4.2.7.2.686 [id number] [facility] 2023-07-11 16:30:00 2023-07-11 16:52:09 Outpatient R LOLA [facility] [id number] [facility] 2023-07-11 16:30:00 2023-07-11 16:45:00 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 1..840.114 350.1.13.10 4.2.7.2.686 [id number] [facility] 2023-07-11 00:00:00 2023-07-11 00:00:00 Orders Only Doctor Unassigned, [place] [facility] 1.840.114 350.1.13.10 4.2.7.2.686 [id number] [facility] 2023-07-09 13:00:00 2023-07-09 15:42:52 Outpatient R LOLA [facility] [id number] [facility] 2023-07-09 13:00:00 2023-07-09 13:30:00 Office Visit Lola Bapt[facility] 1..840.114 350.1.13.10 4.2.7.2.686 [id number] [facility] 2023-07-02 09:00:00 2023-07-02 09:00:00 Outpatient R LOLA [facility] [id number] [facility] 2023-06-29 00:00:00 2023-06-29 00:00:00 [facility] 1..840.114 350.1.13.10 4.2.7.2.686 [id number] [facility] 2023-06-27 00:00:00 2023-06-27 00:00:00 [facility] 1..840.114 350.1.13.10 4.2.7.2.686 [id number] [facility] 2023-06-27 00:00:00 2023-06-27 00:00:00 [facility] 1.2.840.114 350.1.13.10 4.2.7.2.686 [id number] [facility] 2023-06-27 00:00:00 2023-06-27 00:00:00 Telephone Dian [facility] 1.2.840.114 350.1.13.10 4.2.7.2.686 [id number] [facility] 2023-06-22 06:48:53 2023-06-22 23:59:00 Outpatient R DIAN [facility] [id number] [facility] 2023-06-22 06:48:53 2023-06-22 23:59:00 Hospital Encounter Dian [facility] 1.2.840.114 350.1.13.10 4.2.7.2.686 [id number] [facility] 2023-06-19 13:40:00 2023-06-19 13:40:00 Outpatient R [facility] [id number] [facility] 2023-06-15 18:59:00 2023-06-15 23:24:00 Emergency X MARIA LUISALORNATONYA SEVEROJAYLA [facility] ERT [id number] [facility] 2023-06-15 18:59:00 2023-06-15 23:24:00 Emergency Reed Deonnacharo Lee [facility] 1.2.840.114 350.1.13.10 4.2.7.2.686 [id number] [facility] 2023-06-05 00:00:00 2023-06-05 00:00:00 [facility] [id number] [facility] 2023-06-04 00:00:00 2023-06-04 00:00:00 [facility] 1.2.840.114 350.1.13.10 4.2.7.2.686 [id number] [facility] 2023-05-30 00:00:00 2023-05-30 00:00:00 [facility] 1.2.840.114 350.1.13.10 4.2.7.2.686 [id number] [facility] 2023-05-11 00:00:00 2023-05-11 00:00:00 [facility] 1.2.840.114 350.1.13.10 4.2.7.2.686 [id number] [facility] 2023-05-07 14:20:00 2023-05-07 14:40:00 [facility] 1.2.840.114 350.1.13.10 4.2.7.2.686 [id number] [facility] 2023-05-07 14:20:00 2023-05-07 14:20:00 [facility] [id number] [facility] 2023-05-01 00:00:00 2023-05-01 00:00:00 Patient Secure Msg [facility] 1.2.840.114 350.1.13.10 4.2.7.2.686 [id number] [facility] 2023-04-27 00:00:00 2023-04-27 00:00:00 [facility] 1.2.840.114 350.1.13.10 4.2.7.2.686 [id number] [facility] 2023-04-20 00:00:00 2023-04-20 00:00:00 Telephone [facility] 1.2.840.114 350.1.13.10 4.2.7.2.686 [id number] [facility] 2023-04-20 00:00:00 2023-04-20 00:00:00 Orders Only Doctor Unassigned, [place] [facility] 1.2.840.114 350.1.13.10 4.2.7.2.686 [id number] [facility] 2023-04-13 00:00:00 2023-04-13 00:00:00 Telephone [facility] 1.2.840.114 350.1.13.10 4.2.7.2.686 [id number] [facility] 2023-04-07 00:00:00 2023-04-07 00:00:00 Orders Only Doctor Unassigned, [place] [facility] 1.2.840.114 350.1.13.10 4.2.7.2.686 [id number] [facility] 2023-04-05 00:00:00 2023-04-05 00:00:00 Telephone [facility] 1.2.840.114 350.1.13.10 4.2.7.2.686 [id number] [facility] 2023-03-30 00:00:00 2023-03-30 00:00:00 [facility] 1.2.840.114 350.1.13.10 4.2.7.2.686 [id number] [facility] 2023-03-29 15:01:56 2023-03-29 23:59:00 [facility] [id number] [facility] 2023-03-13 00:00:00 2023-03-13 00:00:00 Telephone Dian [facility] BUILDING 1.2.840.114 350.1.13.10 4.2.7.2.686 [id number] [facility] 2023-03-09 09:40:00 2023-03-09 09:40:00 [facility] 1.2.840.114 350.1.13.10 4.2.7.2.686 [id number] [facility] 2023-03-09 09:40:00 2023-03-09 09:16:01 [facility] [id number] [facility] 2023-03-09 00:00:00 2023-03-09 00:00:00 Orders Only Doctor Unassigned, [place] [facility] 1.2.840.114 350.1.13.10 4.2.7.2.686 [id number] [facility] 2023-03-08 13:57:51 2023-03-08 13:57:51 Outpatient [facility] [id number] 2023-03-01 09:56:01 2023-03-01 09:56:01 Outpatient [facility] [id number] 2023-03-01 00:00:00 2023-03-01 00:00:00 Orders Only Doctor Unassigned, [place] [facility] 1.2.840.114 350.1.13.10 4.2.7.2.686 [id number] [facility] 2023-02-22 10:00:22 2023-02-22 10:00:22 Outpatient [facility] [id number] 2023-02-16 14:11:58 2023-02-16 14:11:58 Outpatient [facility] [id number] 2019-07-08 00:00:00 2019-07-08 00:00:00 Case Management Sheryl Wooten [facility] 1.2.840.114 350.1.13.10 4.2.7.2.686 [id number] [facility] 2019-07-02 15:20:19 2019-07-02 15:54:38 Office Visit Sheryl Wooten [facility] 1.2.840.114 350.1.13.10 4.2.7.2.686 [id number] [facility] Results Test Description Test Time Test Comments Results Result Co mments Source [id number]:33:33* Test Item Value Reference Range Interpretation Comme nts TROPONIN I (test code = 2035146984) <=0.034 MIRACLE (test code = MIRACLE) Reference (Normal) Range (defined by the 99th percentile reference limit): <= 0.034 ng/mL Note: Cardiac troponin begins to rise 3-4 hours after the onset of ischemia. Repeat in 4-6 hours if the sample was drawn within 3-4 hours of the onset of the symptom and found normal. Diagnosis of myocardial injury is made with acute changes in cTn concentrations with at least one serial sample above the 99th percentile upper reference limit (URL), taken together with the patient's clinical presentation. Biotin has been reported to cause a negative bias, interpret results relative to patient's use of biotin. Lab Interpretation (test code = 93055-0) Normal [facility] WITH [id number] 02:33:12* Test Item Value Reference Range Interpretation Comme nts WBC (test code = 6690-2) 5.61 See_Comment [Automated messa ge] The system which generated this result transmitted reference range: 4.30 - 11.10 10*3/?L. The reference range was not used to interpret this result as normal/abnormal. RBC (test code = 789-8) 4.17 See_Comment [Automated Acceleforcea ge] The system which generated this result transmitted reference range: 3.93 - 5.25 10*6/?L. The reference range was not used to interpret this result as normal/abnormal. HGB (test code = 718-7) 12.7 g/dL 11.6-15.0 HCT (test code = 4544-3) 38.1 % 35.7-45.2 MCV (test code = 787-2) 91.4 fL 80.6-95.5 MCH (test code = 785-6) 30.5 pg 25.9-32.8 MCHC (test code = 786-4) 33.3 g/dL 31.6-35.1 RDW-SD (test code = 83348-3) 51.8 fL 39.0-49.9 H RDW-CV (test code = 788-0) 15.6 % 12.0-15.5 H PLT (test code = 777-3) 209 See_Comment [Automated Acceleforcea ge] The system which generated this result transmitted reference range: 166 - 358 10*3/?L. The reference range was not used to interpret this result as normal/abnormal. MPV (test code = 40226-9) 11.8 fL 9.5-12.9 NRBC/100 WBC (test code = 7731748969) 0.0 See_Comment [Automated dloHaiti ssage] The system which generated this result transmitted reference range: 0.0 - 10.0 /100 WBCs. The reference range was not used to interpret this result as normal/abnormal. NRBC x10^3 (test code = 7851931112) See_Comment [Automated messa ge] The system which generated this result transmitted reference range: 10*3/?L. The reference range was not used to interpret this result as normal/abnormal. GRAN MAT (NEUT) % (test code = 770-8) 49.0 % IMM GRAN % (test code = 1292926238) 0.20 % LYMPH % (test code = 736-9) 38.3 % MONO % (test code = 5905-5) 10.5 % EOS % (test code = 713-8) 0.9 % BASO % (test code = 706-2) 1.1 % GRAN MAT x10^3(ANC) (test code = 6252834529) 2.75 10*3/uL 1.88-7.09 IMM GRAN x10^3 (test code = 1328838098) 0.00-0.06 LYMPH x10^3 (test code = 731-0) 2.15 10*3/uL 1.32-3.29 MONO x10^3 (test code = 742-7) 0.59 10*3/uL 0.33-0.92 EOS x10^3 (test code = 711-2) 0.05 10*3/uL 0.03-0.39 BASO x10^3 (test code = 704-7) 0.06 10*3/uL 0.01-0.07 Lab Interpretation (test code = 32617-2) [facility]normal [id number] 02:31:11* Test Item Value Reference Range Interpretation Comme nts NT-proBNP (test code = 38391-8) 41 pg/mL <=125 Lab Interpretation (test cod e = 38714-5) Normal [facility] MET[facility]OLIC PANEL (61746)2023-06-16 02:22:09* Test Item Value Reference Range Interpretation Comme nts NA (test code = 7020636352) 140 mmol/L 135-145 K (test code = 0579021052) 4.7 mmol/L 3.5-5.0 CL (test code = 6580174481) 108 mmol/L 98-108 CO2 TOTAL (test code = 7106555974) 24 mmol/L 23-31 AGAP (test code = 0596181833) 8 2-16 BUN (test code = 3225779071) 11 mg/dL 7-23 GLUCOSE (test code = 8511754189) 70 mg/dL 70-110 CREATININE (test code = 0255997742) 0.65 mg/dL 0.50-1.04 TOTAL BILI (test code = 7671600464) 0.2 mg/dL 0.1-1.1 CALCIUM (test code = 8348734493) 8.8 mg/dL 8.6-10.6 T PROTEIN (test code = 7548121061) 7.3 g/dL 6.3-8.2 ALBUMIN (test code = 0489688988) 4.2 g/dL 3.5-5.0 ALK PHOS (test code = 1242732007) 49 U/L 34-122 ALTv (test code = 1742-6) 60 U/L 5-35 H AST(SGOT) (test code = 9610684973) 43 U/L 13-40 H eGFR (test code = 9578630948) 103.1 mL/min/1.73m2 MIRACLE (test code = MIRACLE) Association of Glomerular Filtration Rate (GFR) and Staging of Kidney Disease* + --+ --+ ------+| GFR (mL/min/1.73 m2) ?| With Kidney Damage ?| ?Without Kidney Damage+ --------+ --------+ +| ?>90 ?| ?Stage one ?| ? Normal ?+ ---+ ---+ -------+| ?60-89 ?| ?Stage two ?| ? Decreased GFR ? + --+ --+ ------+| ?30-59 ?| ?Stage three ?| ? Stage three ? + --+ --+ ------+| ?15-29 ?| ?Stage four ? | ? Stage four ?+ ---+ ---+ -------+| ?<15 (or dialysis) ? ?| ?Stage five ? | ? Stage five ?+ ---+ ---+ -------+ *Each stage assumes the associated GFR level has been in effect for at least three months. ?Stages 1 to 5, with or without kidney disease, indicate chronic kidney disease. Notes: Determination of stages one and two (with eGFR >59mL/min/1.73 m2) requires estimation of kidney damage for at least three months as defined by structural or functional abnormalities of the kidney, manifested by either:Pathological abnormalities or Markers of kidney damage (including abnormalities in the composition of the blood or urine or abnormalities in imaging tests). Lab Interpretation (test code = 64351-9) Abnormal [facility] [id number] 01:31:00* Test Item Value Reference Range Interpretation Comme nts POCT PREG (test code = 1605) Negative On board controls acceptable with C Line (test code = 3574) Yes POCT PREG LOT # (test code = 3575) [id number] POCT PREG TEST DATE ( test code = 3576) Lab Interpretation (test cod e = 11322-1) Normal [facility]ballOCCULT BLD,FECAL,IMMUNOASSAY [id number] 11:20:54* Test Item Value Reference Range Interpretation Comme nts OCCULT BLD, FECAL (test code = 99670) NEGATIVE NEGATIVE UNLESS OTHER PERRY INDICATED, ALL TESTING PERFORMED AT [facility] [address] [place] [address] MASK LAYOUT DESIGNER: KATELYN GOMEZ M.D. [place] NUMBER [id number] [facility]. [id number] PATHOLOGIST SMEAR [id number] 13:20:44* Test Item Value Reference Range Interpretation Comme nts DIAGNOSIS: (test code = 8200) (NOTE) PERIPHERAL BLOOD SMEAR REVIEW:Moderate microcytic, hypochromic anemia. Borderline thrombocytosis. See Comment. COMMENTS: (test code = 8205) (NOTE) In summary, the CBC shows microcytic, hypochromic anemia. Mostcommonly, this is due to iron deficiency anemia, and concurrent ironstudies are consistent with iron deficiency. If this does not respondto iron therapy, then consideration could be given to other causes ofmicrocytic anemia. These include thalassemias or hemoglobinopathies,certa in anemia of chronic diseases, defects of porphyrin synthesis orsevere protein deficiency, etc. AMENDED/ADDENDUM REPORT: (test code = 8402) DNR MICROSCOPIC DESCRIPTION: (test code = 8210) (NOTE) Please see a CBC dated 03/01/2023 for hematologic parameters. Examination of the peripheral smear reveals a microcytic andhypochromic red cell population with moderate anemia. A fewelliptocytes, dacrocytes, and polychromatophils are seen withoutsignificant target cell formation or erythrocytosis. White bloodcells are within normal limits showing a normal differential count, anormal leukocyte morphology. No dysplasia is identified and blastsare not seen. Platelets are borderline increased in number. (je;03/02/23) PATHOLOGIST: (test code = 8250) (NOTE) Katelyn Gomez M.D. (electronically signed) Diplomate, [place] [employer] with Subspecialty Certification, Hematology CPT: (test code = 8400) 37028 WBC (test code = 1001) 4.1 K/UL 3.5-11.0 RBC (test code = 1002) 3.91 M/UL 3.80-5.40 HEMOGLOBIN (test code = 1003) 8.7 G/DL 11.5-15.5 L HEMATOCRIT (test code = 1004) 30.2 % 34.0-45.0 L MCV (test code = 1005) 77.2 fL 80.0-99.0 L MCH (test code = 1006) 22.3 PG 25.0-33.0 L MCHC (test code = 1007) 28.8 G/DL 31.0-36.0 L RDW (test code = 1038) 22.3 % 11.5-15.0 H NEUTROPHILS (test code = 1008) 43.6 % AUTOMATED DIFFER ENTIAL CONFIRMED WITH MANUAL SLIDE REVIEW. LYMPHOCYTES (test code = 1010) 35.9 % MONOCYTES (test code = 1011) 18.1 % EOSINOPHILS (test code = 1012) 0.7 % BASOPHILS (test code = 1013) 1.5 % IMMATURE GRANULOCYTES (test code = 1036) 0.2 % NUCLEATED RBCS (test code = 1065) 0.0 /100 WBC'S See_Comment [Automated message] The system which generated this result transmitted reference range: 0.0. The reference range was not used to interpret this result as normal/abnormal. PLATELET COUNT (test code = 1015) 407 K/UL 130-400 H ABSOLUTE NEUTROPHILS (test code = 1066) 1.78 K/UL 1.50-7.50 ABSOLUTE LYMPHOCYTES (test code = 1067) 1.47 K/UL 1.00-4.00 ABSOLUTE MONOCYTES (test code = 1068) 0.74 K/UL 0.20-1.00 ABSOLUTE EOSINOPHILS (test code = 1040) 0.03 K/UL 0.00-0.50 ABSOLUTE BASOPHILS (test code = 1069) 0.06 K/UL 0.00-0.20 ABS IMMATURE GRANULOCYTES (test code = 1020) 0.01 K/UL 0.00-0.10 ABS NUCLEATED RBCS (test code = 62302) 0.00 K/UL 0.00-0.11 COMMENTS (test code = 1016) (NOTE) MARKED ANISOCYTO SIS FEW ELLIPTOCYTES MODERATE HYPOCHROMASIA SLIGHT MICROCYTOSIS SLIGHT POIKILOCYTOSIS SLIGHT POLYCHROMASIA FEW TEAR DROP CELLS PLATELETS APPEAR INCREASED UNLESS OTHERWISE INDICATED, ALL TESTING PERFORMED AT [facility] [address] [place] [address] MASK LAYOUT DESIGNER: KATELYN GOMEZ M.D. CLIA NUMBER [id number] [place]. [id number] HAPTOGLOBIN, [id number] 13:10:19* Test Item Value Reference Range Interpretation Comme nts HAPTOGLOBIN, QUANT (test cod e = 67577) 78 MG/DL 32-197 [id number] 07:59:28* Test Item Value Reference Range Interpretation Comme nts LDH (test code = 2224) 178 U/L 135-214 CBC W/AUTO DIFF WITH [id number] 23:14:06* Test Item Value Reference Range Interpretation Comme nts WBC (test code = 1001) 4.4 K/UL 3.5-11.0 RBC (test code = 1002) 3.69 M/UL 3.80-5.40 L HEMOGLOBIN (test code = 1003) 7.9 G/DL 11.5-15.5 L HEMATOCRIT (test code = 1004) 28.1 % 34.0-45.0 L MCV (test code = 1005) 76.2 fL 80.0-99.0 L MCH (test code = 1006) 21.4 PG 25.0-33.0 L MCHC (test code = 1007) 28.1 G/DL 31.0-36.0 L RDW (test code = 1038) 21.6 % 11.5-15.0 H NEUTROPHILS (test code = 1008) 53.9 % AUTOMATED DIFFERENTIAL CONFIRMED WITH MANUAL SLIDE REVIEW. LYMPHOCYTES (test code = 1010) 37.0 % MONOCYTES (test code = 1011) 7.7 % EOSINOPHILS (test code = 1012) 0.5 % BASOPHILS (test code = 1013) 0.7 % IMMATURE GRANULOCYTES (test code = 1036) 0.2 % NUCLEATED RBCS (test code = 1065) 0.0 /100 WBC'S See_Comment [Automated message] The system which generated this result transmitted reference range: 0.0. The reference range was not used to interpret this result as normal/abnormal. PLATELET COUNT (test code = 1015) 436 K/UL 130-400 H ABSOLUTE NEUTROPHILS (test code = 1066) 2.38 K/UL 1.50-7.50 ABSOLUTE LYMPHOCYTES (test code = 1067) 1.63 K/UL 1.00-4.00 ABSOLUTE MONOCYTES (test code = 1068) 0.34 K/UL 0.20-1.00 ABSOLUTE EOSINOPHILS (test code = 1040) 0.02 K/UL 0.00-0.50 ABSOLUTE BASOPHILS (test code = 1069) 0.03 K/UL 0.00-0.20 ABS IMMATURE GRANULOCYTES (test code = 1020) 0.01 K/UL 0.00-0.10 ABS NUCLEATED RBCS (test code = 81135) 0.00 K/UL 0.00-0.11 COMMENTS (test code = 1016) (NOTE) MODERATE ANISOCY TOSIS MARKED HYPOCHROMASIA SLIGHT MICROCYTOSIS SLIGHT POLYCHROMASIA FEW SCHISTOCYTES PLATELETS APPEAR INCREASED RETICULOCYTE WITH [id number] 23:14:06* Test Item Value Reference Range Interpretation Comme [facility] RETICULOCYTE COUNT (test cod e = 1018) 3.68 % 0.80-2.40 H ABSOLUTE RETICULOCYTE (test code = 52422) 131.0 K/UL 32.0-105.0 H [id number] 04:46:23* Test Item Value Reference Range Interpretation Comme [facility] FERRITIN (test code = 2075) 114 NG/ML 13-200 VITAMIN B 12 AND FOLIC [id number] 04:46:23* Test Item Value Reference Range Interpretation Comme [facility] VITAMIN B-12 (test code = 2840) 394 PG/ML 200-950 FOLIC ACID (test code = 2695) 17.1 UG/L SEE BELOW INTERPRETI VE RANGES DEFICIENCY . . . . . . . . . . . . . . . UG/L <4.0 POSSIBLE DEFICIENCY. . . . . . . . . . . UG/L 4.0-5.9 SUFFICIENT . . . . . . . . . . . . . . . UG/L >=6.0 IRON BINDING CAPACITY AND IRON AND % [id number] 23:59:13* Test Item Value Reference Range Interpretation Comme nts IRON, SERUM (test code = 2222) 25 UG/DL 37-145 L UNSATURATED IBC (test code = 43105) 445 UG/DL 112-347 H CALC TOTAL IBC (test code = 2077) 470 UG/DL 250-450 H CALC % IRON SAT (test code = 2079) 5 % 20-50 L [id number] 23:58:52* Test Item Value Reference Range Interpretation Comme nts TRANSFERRIN (test code = 4936) 377 MG/DL 200-360 H [id number] 23:58:52* Test Item Value Reference Range Interpretation Comme nts HOMOCYSTEINE (test code = 4288) 15 UMOL/L <12 H UNLESS OTHERWISE INDICATED, ALL TESTING PERFORMED AT [facility] [address] [place] [address] MASK LAYOUT DESIGNER: KATELYN GOMEZ M.D. CLIA NUMBER [id number] [place]. [id number] MICROSCOPIC [id number] 04:53:02* Test Item Value Reference Range Interpretation Comme nts WHITE BLOOD CELLS (test code = 1513) 0-5 /HPF 0-5 RED BLOOD CELLS (test code = 1514) 0-2 /HPF 0-2 PLEASE NOTE: NEW REFERENCE RANGE EFFECTIVE 23. EPITHELIAL CELLS (test code = 95811) 6-10 /HPF 0-10 BACTERIA (test code = 1515) >3+ NONE SEEN CRYSTALS (test code = 1516) PRESENT NONE SEEN A CALCIUM OXALATE CRYSTALS CASTS, HYALINE (test code = 1517) TRACE NONE-TRACE CBC W/AUTO DIFF WITH [id number] 15:50:45* Test Item Value Reference Range Interpretation Comme nts WBC (test code = 1001) 4.6 K/UL 3.5-11.0 RBC (test code = 1002) 3.65 M/UL 3.80-5.40 L HEMOGLOBIN (test code = 1003) 7.7 G/DL 11.5-15.5 L HEMATOCRIT (test code = 1004) 26.9 % 34.0-45.0 L MCV (test code = 1005) 73.7 fL 80.0-99.0 L MCH (test code = 1006) 21.1 PG 25.0-33.0 L MCHC (test code = 1007) 28.6 G/DL 31.0-36.0 L RDW (test code = 1038) 19.3 % 11.5-15.0 H NEUTROPHILS (test code = 1008) 41.3 % AUTOMATED DIFFERENTIAL CONFIRMED WITH MANUAL SLIDE REVIEW. LYMPHOCYTES (test code = 1010) 42.9 % MONOCYTES (test code = 1011) 13.0 % EOSINOPHILS (test code = 1012) 1.5 % BASOPHILS (test code = 1013) 1.1 % IMMATURE GRANULOCYTES (test code = 1036) 0.2 % NUCLEATED RBCS (test code = 1065) 0.0 /100 WBC'S See_Comment [Automated message] The system which generated this result transmitted reference range: 0.0. The reference range was not used to interpret this result as normal/abnormal. PLATELET COUNT (test code = 1015) 299 K/UL 130-400 ABSOLUTE NEUTROPHILS (test code = 1066) 1.88 K/UL 1.50-7.50 ABSOLUTE LYMPHOCYTES (test code = 1067) 1.95 K/UL 1.00-4.00 ABSOLUTE MONOCYTES (test code = 1068) 0.59 K/UL 0.20-1.00 ABSOLUTE EOSINOPHILS (test code = 1040) 0.07 K/UL 0.00-0.50 ABSOLUTE BASOPHILS (test code = 1069) 0.05 K/UL 0.00-0.20 ABS IMMATURE GRANULOCYTES (test code = 1020) 0.01 K/UL 0.00-0.10 ABS NUCLEATED RBCS (test code = 51467) 0.00 K/UL 0.00-0.11 COMMENTS (test code = 1016) (NOTE) MODERATE ANISOCY TOSIS MODERATE HYPOCHROMASIA MODERATE MICROCYTOSIS PLATELETS APPEAR NORMAL TSH, THIRD [id number] 10:17:10* Test Item Value Reference Range Interpretation Comme nts TSH, THIRD GENERATION (test code = 2821) 4.160 UIU/ML 0.400-4.100 H FO-[id number] 08:48:32* Test Item Value Reference Range Interpretation Comme nts NT-proBNP (test code = 10517) <50 PG/ML SEE BELOW If NT-ProBNP is less than 300 PG/ML, heart failure is unlikely for allages. Age.................Heart Failure Likely <50 Years...........>=450 PG/ML 50-75 Years.........>=900 PG/ML > 75 Years..........>=1800 PG/ML Methodology: Rosmery Anais Electrochemiluminescense Immunoassay [facility] has important pathology staff changes effective 12/20/2022. New pathology staff will provide uninterrupted, excellent patient care and clinical consultation. See URL: [email or web address]. UNLESS OTHERWISE INDICATED, ALL TESTING PERFORMED AT [facility] [address] [place] [address] MASK LAYOUT DESIGNER: KATELYN GOMEZ M.D. CLIA NUMBER [id number] [place]. [id number] COMPREHENSIVE METABOLIC [id number] 06:00:01* Test Item Value Reference Range Interpretation Comme nts GLUCOSE (test code = 2217) 85 MG/DL 70-99 BUN (test code = 2208) 7 MG/DL 6-20 CREATININE (test code = 2214) 0.71 MG/DL 0.60-1.30 eGFR (2020 CKD-EPI) (test code = 18145) 113 ML/MIN/1.73 >60 CALC BUN/CREAT (test code = 2235) 10 RATIO 6-28 SODIUM (test code = 2231) 141 MEQ/L 133-146 POTASSIUM (test code = 2228) 4.2 MEQ/L 3.5-5.4 CHLORIDE (test code = 2215) 106 MEQ/L 95-107 CARBON DIOXIDE (test code = 2206) 24 MEQ/L 19-31 CALCIUM (test code = 2209) 9.2 MG/DL 8.5-10.5 PROTEIN, TOTAL (test code = 222) 7.4 G/DL 6.1-8.3 ALBUMIN (test code = 2201) 4.2 G/DL 3.5-5.2 CALC GLOBULIN (test code = 2240) 3.2 G/DL 1.9-3.7 CALC A/G RATIO (test code = 2234) 1.3 RATIO 1.0-2.6 BILIRUBIN, TOTAL (test code = 2207) 0.2 MG/DL See_Comment [Automated me ssage] The system which generated this result transmitted reference range: <=1.2. The reference range was not used to interpret this result as normal/abnormal. ALKALINE PHOSPHATASE (test code = 2204) 53 U/L 40-112 AST (test code = 2218) 32 U/L 9-40 ALT (test code = 2219) 31 U/L 5-40 LIPID [id number] 06:00:01* Test Item Value Reference Range Interpretation Comme nts CHOLESTEROL (test code = 2210) 128 MG/DL <200 TRIGLYCERIDES (test code = 2232) 66 MG/DL <150 HDL CHOLESTEROL (test code = 2220) 62 MG/DL >39 CALC LDL CHOL (test code = 2237) 51 MG/DL <100 NOTE: CALCULATED LDL IS BASED ON MARIPOSA-IYER METHOD WHICHINCLUDES ADJUSTABLE TRIGLYCERIDE:VLDL CHOLESTEROL RATIO.THIS FACTOR VARIES BY MEASURED TRIGLYCERIDE AND NON-HDLCHOLESTEROL CONCENTRATIONS WITH INCREASED CALCULATED LDL SEENIN HIGHER TRIGLYCERIDE OR LOWER NON-HDL SPECIMENS. FOR MOREINFORMATION, SEE CLIENT ANNOUNCEMENT AT [email or web address] RISK RATIO LDL/HDL (test code = 2238) 0.82 RATIO <3.22 HEMOGLOBIN [id number] 05:05:23* Test Item Value Reference Range Interpretation Comme nts HEMOGLOBIN A1c (test code = 20581) 5.3 % 4.2-5.6 History and Physical Notes Date/Time Note Provider Source 2023-06-22 07:00:00 gGzhzkEx2bjYhhOUQeDO jRMF+J4RdUr/yBwiJ1tlRw 1aYe7RC51VKwzVBiS5M7XW5912-06-08C17:00:00F ormatting of this note might be different from the original.[facility] Echocardiography LabOut-Patient Transesophageal Echo-CardiogramIDENTIFYING DATAPatient name: Cooper Morton 37 year old female 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 Morton has no past medical history of Abnormal uterine bleeding, Anemia, Anesthesia complication, Anxiety, Asthma, Autoimmune disorder, Blood dyscrasia, Breast disorder, Cancer, Clotting disorder, Coronary artery disease, Depression, Diabetes mellitus, Endocrine disorder, Endometriosis, Female infertility, Genital herpes, Genital warts, Heart murmur, Hormone disorder, Human immunodeficiency virus (HIV) disease, Hypertension, Kidney disease, Leiomyoma of uterus, Liver disease, Menstrual disorder, Mental disorder, Osteoporosis, Pap smear abnormality of cervix, PID (pelvic inflammatory disease), Rh incompatibility, Seizures, Sickle cell anemia, STD (sexually transmitted disease), Substance abuse, Superficial thrombophlebitis, Thyroid disease, Transfusion history, Trauma, Tuberculosis, or Urinary incontinence. She does not have any pertinent problems on file. She has no past surgical history on file. Prior surgeries at outside hospitals: [facility] has No Known Allergies.She reports that she has never smoked. She has never used smokeless tobacco. She reports that she does not currently use alcohol. She reports no history of drug use.Current Medications:Ms. Morton @[facility]@Checklist: + Dysphagia, + Esophageal diverticula, + Esophageal varices , + Hx of recent GI Bleed, + Oropharyngeal , + Previous mediastinal or neck surgery/irradiation, and + Previous JAYNA under deep sedationInformed Consent: Did the patient agree to procedure?: YesIs the patient DNR or DNI?: No.Sedation, Anesthesia and Analgesia:Are ASA and Mallampati Class documented? YesIs there any contraindication to sedation present? NoHOME MEDICATIONS(Not in a hospital admission)Last taken: not applicablePHYSICAL EXAMGeneral: alert, oriented times three, no apparent distress HEENT: PERRLANeck: negativeHeme: negJaw: negLung: clear to auscultation bilaterallyABD: abdomen is soft without significant tenderness, masses, organomegaly or guardingExtremities: peripheral pulses normal, no pedal edema, no clubbing or cyanosisnegRisk/Benefits of procedure explained to patient and family, verbalized understanding and informed consent obtained. The sedation pre-assessment was discussed and I concurred with the plan for sedation or anesthesia as captured in the flowsheet pre-assessment rows by the nurse. Time out performed. 24810-1Zlcoccd and physical jkesRC7177-82-87R72:07:45History and physical noteTXT1.2.840.829770.1.13.104.2.7.2.95432 9|[id number] for patient wtms24504-4Qkflfnm and physical noteLN[address] [id number] CORTESOUMABEKUVEACXDTX6543-31-91K39:07:451.2.840 .641092.1.72.3.15|1.2.840.463440.1.13.104. 2.7.2.727879_[id number] [facility] Notes Date/Time Note Provider Source 2023-06-28 10:55:44 NAuZwy15M/bBs/aORort EkdHtbkCtwkC kcDUTe79dbBmyYE46LB2DSFWaA/iq7gJ 8510-35-31W10:55:44 Patient notified 18617-3Brkyfvotm encounter KqknTG1462-25-10W44:55:50Telepho ne encounter NoteTXT1.2.840.753382.1.13.104.2 .7.2.240552|[id number] e for patient gcpg97451-2ItpwLO401125509Ucxe Sheavly RN[address]TXTX[address] 6709LNGNCVIPMNXVFVZKOVUVXD3007-5 9-07T10:55:501.2.840.531647.1.72 .3.15|1.2.840.976960.1.13.104.2. 7.2.727879_[id number] Adilene Castellanos RN [facility] 2023-06-28 10:45:48 wfr3jo9eahoJvGd7XhcC vXxc6kQsgY0g V5j27nN2Pldh7+oBNRaiDChMunuwKcRn 6064-82-74B28:45:48 Letter in EPIC 51609-5Kimchokmk encounter HepgMU4183-29-44S50:45:58Telepho ne encounter NoteTXT1.2.840.139617.1.13.104.2 .7.2.112206|[id number] e for patient fcea46770-6NqhrVKCNICOEHU[address]vdGalvestonGalvestonTXTX[address] 9537FFXUYISCZYNIXGCAMQBMFY8593-9 9-07T10:45:581.2.840.572539.1.72 .3.15|1.2.840.937798.1.13.104.2. 7.2.727879_[id number] [facility] 2023-06-28 10:31:30 RYgICd3LUEAWMWb0+sT5 PKCyh0AUXJxO IRtIZb+ySVho+x313KcttVlVqRMiGbYJ 6600-26-31W72:31:30 Discussed disability with patient, she stated that since everything with her JAYNA came back good she does not have a disability. She would like to RTW on 07/03/23Route to Dr Biggs 13448-7Tvqlvwhrd encounter GpzgQA4107-88-79M86:33:56Telepho ne encounter NoteTXT1.2.840.418187.1.13.104.2 .7.2.280341|[id number] e for patient [id number] A Roller RN[address] 1146YSFWVEDZLMWIXPERECIHUU1078-4 9-07T10:33:561.2.840.373150.1.72 .3.15|1.2.840.578924.1.13.104.2. 7.2.727879_[id number] Belkis Wilder RN [facility] 2023-06-28 10:19:20 GrnTe/mXpXpJrD5NGx3/ oojgusCIyXBF U8jAHx/xKfRgXHBx0B/rh3n0k08gCPbJ 0563-32-88T61:19:20 Yesterday we received a disability request. Please verify with the patient what her game plan is. If she is returning to work, what should I say in the disability form? Please describe her degree of disability and duration of disability. 72566-7Mdqhfevgl encounter NnrcZI3492-21-88Y42:20:26Telepho ne encounter NoteTXT1.2.840.691861.1.13.104.2 .7.2.495783|[id number] e for patient rgnu39408-3MvapVVKVYFSGEJ[address] TtdoDxdobeqsgMwzulznguLLKL346590 5429IURYEQMVSYEMVLDRRGBAJG0713-6 9-07T10:20:261.2.840.494840.1.72 .3.15|1.2.840.274964.1.13.104.2. 7.2.727879_[id number] [facility] 2023-06-27 14:40:48 oS5LtvSLeKZ4cqFNiHB3 hucVDmDL5/4Y DSvvCAyoQ29fZMcUNtO3mn9XaUmdC56Q 8916-74-63T15:40:48 Patient is requesting a return to work note dated July 02, 2023. Please send via [employer]. 89426-5Botgfxtpa encounter JzebOS6293-35-12T68:45:07Telepho ne encounter NoteTXT1.2.840.025641.1.13.104.2 .7.2.314367|[id number] e for patient [id number] M [address] 6873DHWNESYXVRCFCJHWTNBOJG7264-4 9-06T14:45:071.2.840.680274.1.72 .3.15|1.2.840.018863.1.13.104.2. 7.2.727879_[id number] Desirae Blackburn [facility] 2023-06-27 12:53:46 +r0NWXA1qremmyC9EIgz jUvdm50onMMq ACk6cpTrGpCBa2IwmItdq4Sv6w0IpHFW 2145-54-00N39:53:46 Supplementary Report of Disability Request received via fax from [facility] and placed in Dr Biggs's folder to be reviewed and signed. 61641-0Mlbrhlzsj encounter XiwxSN1392-50-19I07:55:08Telepho ne encounter NoteTXT1.2.840.409967.1.13.104.2 .7.2.856300|[id number] e for patient wcav13198-4YarxCX826460966Dbjoup rome Andrade [address] 1213PQOMYIGYWSEROPASEDNZRK4188-7 9-06T12:55:081.2.840.976709.1.72 .3.15|1.2.840.186204.1.13.104.2. 7.2.727879_[id number] Shonda Andrade MA [facility] 2023-06-27 09:07:08 N5XmsuHXCW58BtitkLc2 2SNzEUugySZH RmYTUvmE4EmJd1ovk91G1ydH2RMkd9h4 6299-60-40G73:07:08 Cooper Morton is a 37 year old femaleMarla [facility] She is wanting to confirm proceduresPlease call her [phone] signed by Livia Gonsalez at 06/27/2023 9:09 AM FOB21399-8Wscsbiegl encounter SbqfKL9812-51-13F94:09:11Telepho ne encounter NoteTXT1.2.840.388926.1.13.104.2 .7.2.415156|[id number] e for patient apbv60336-1DnyyFY378011239Xwmx [address] MppeInjdrimtoSstosldrcGLFG285470 8496YDYCUTEHMLRPVHKJJJXRZA4030-3 09:09:111.2.840.247760.1.72 .3.15|1.2.840.171041.1.13.104.2. 7.2.727879_[id number] Livia Gonsalez [facility] 2023-06-22 11:51:15 u6SUvZC86hz/11RQjM4f M89rEeMed0bo zGA+tbx2PJ2H/vYDguum97fPQP9kS7Tn 9574-04-76S89:51:15 Spoke with patient , She was able to speak with Colette Swift, all is taken care of 10768-1Wvbyhtqre encounter IrohIM0333-51-72D31:52:39Telepho ne encounter NoteTXT1.2.840.157203.1.13.104.2 .7.2.673095|[id number] e for patient byzo95867-5QsjrHT710720726Jehbc A Meño RN[address]TX[address] 8988QNXUFRXBDKUPWAAZIHZUMF5707-2 06-22T11:52:391.2.840.799182.1.72 .3.15|1.2.840.577467.1.13.104.2. 7.2.727879_[id number] Belkis Bijal Meño RN [facility] 2023-06-15 23:23:42 bd/X+OzkFNf5qDnPbv5v BV8XCq5ljgSk 1FePP//V0oStuJSgt8l7WWJ9MVlXvNZe 1957-50-51E11:23:42 Pt given printed and verbal discharge instructions regarding anxiety about health, arm numbness, elevated liver enzymes, encouraged hydration,0 Prescriptions providedPt verbalized understanding of instructions, pt awake alert oriented, resp reg unlabored, skin w/d, color appropriate for race, moves all ext well,pt encouraged to follow up with pcp Advised to seek medical attention for new/prolonged/worsening of symptoms,Symptoms improved. PIV d'cd, dressing to site, catheter in tact.Awake, alert oriented, resp reg unlabored, skin w/d, pt leaving amb with steady gait, in no apparent distress, 93574-4Temrwuvzp department JdezHF5917-90-44U18:24:26Emergen department NoteTXT1.2.840.676357.1.13.104.2 .7.2.049823|[id number] e for patient wwuh97458-9EiqeBF011845104Kylggm ly M Felix RN[address]TX[address] 5434NGLUXRLBKRDKUCOEEOOPZD7611-6 06-15T23:24:261.2.840.517435.1.72 .3.15|1.2.840.244205.1.13.104.2. 7.2.727879_[id number] Rebekah Mcqueen ISMAEL [facility] 2023-06-15 18:56:25 lY+F3h1hgcuZzAhfPEAd MDr6/Dgtg/vi L0kCSpHVxsryxN984NJo19R68CrLPVGS 6808-39-31L37:56:25 Pt states her left arm feels numb and tingling, denies any other symptoms, ambulatory to triage and drove herself to ED. Patient states she has hx of TIA. 41899-1Aehqdtltm department Triage fuixSL7207-15-81A68:57:24[facility] department Triage noteTXT1.2.840.317488.1.13.104.2 .7.2.096211|[id number] e for patient btwq29644-6Jkvjgcvrq department CqulHL203623909Dvpsnyyx R Moss RN[address] MdgrZqwklrnfcMfbyxxemsONOR463581 5811MGVOQNZLOERCIHYTOEKXZK4079-5 06-15T18:57:241.2.840.200846.1.72 .3.15|1.2.840.073716.1.13.104.2. 7.2.727879_[id number] Clif Mittal RN [facility] 2023-06-05 15:57:49 ww6ckskNnGFVCbExuSbH OtiBg5UjknWl dHuwrFnoPeF0cljZZS03kayEzkS9jIwC 4474-31-61F19:57:49 Cooper Morton is a 37 year old female Patient is calling and wanting to speak with Colette Swift and wouldn't state what it was regarding. Please assist [phone] 95923-0Cbqymafqi encounter YxgjOW2684-34-66U52:59:14Telepho ne encounter NoteTXT1.2.840.095777.1.13.104.2 .7.2.381934|[id number] e for patient wzkk62857-6PbsiBF176378210Bdwy C [address] 1078MFEKPHBZHYJXDGZYUMUPOX5534-4 5:59:141.2.840.316182.1.72 .3.15|1.2.840.489388.1.13.104.2. 7.2.727879_[id number] Brooklyn Andrade [facility] 2023-06-04 17:09:41 vNonM1PeHS8896qJmH8O uyEGz2+idGLZ RYeS1D39w8zsyn49yigz92RnAGzEfb0p 6645-58-75J41:09:41 Cooper Morton is a 37 year old femalea pt. Calling stating that she has been speaking to Colette Swift and needs a call back please advise. Thank you 48907-7Cudcjzooi encounter LlsrUW6438-56-16B12:11:52Telepho ne encounter NoteTXT1.2.840.632953.1.13.104.2 .7.2.486759|[id number] e for patient bpyp17559-6AfceUY742631293Tgpxbf a Tsuruta Moreno [address] 7696DCXEJRSKDRBGMPFBABQPVV0606-0 06-04T17:11:521.2.840.716895.1.72 .3.15|1.2.840.927773.1.13.104.2. 7.2.727879_[id number] Shyanne De La Rosa V [facility] 2023-05-31 09:51:33 L60jl9citvqrEgpecA+5 BTNFYmZcojRj ftL0+j26zJnVIiYsWzIPyVzxzpTJH/ 3678-12-28U73:51:33 NACHO 05/07/23 NOV 06/19/23" Dizziness and orthostatic hypotension-likely autonomic dysfunction since TIA event. Advised to increase water intake, avoid caffeine intake, and compression stockings. Fall precautions. Since there has been no improvement, we will start midodrine 2.5 mg 3 times daily. Advised to check blood pressure daily for further adjustment. Discussed the nature of this condition.EKG--March 09, 2023-reviewed by me and discussed with patientNSR, yulisa voltage" 95771-1Ztbleiqdd encounter DgreDO4593-89-20R82:57:07Telepho ne encounter NoteTXT1.2.840.856851.1.13.104.2 .7.2.534099|[id number] e for patient ulax20465-9YdniQL744599089Lwiz Sheavly RN[address] EdbdOtclxgcwmGoznfudvyXQXC580250 4713RRXQYBCWPMZKXKTHIPOOVD5666-9 09:57:071.2.840.751267.1.72 .3.15|1.2.840.298036.1.13.104.2. 7.2.727879_[id number] Adilene Castellanos RN [facility] 2023-05-11 16:17:58 Cf173MS3xLf7ZzpjIaOR s4q62KxXSjZZ tNCI3/dDxGUn58JulTrVuoImAWfdI7JZ 1241-49-05P58:17:58 Received medical records request from [facility], will send to [facility] medical records for them to execute. Reach out to [facility] for any updates. 71140-2Hcnvjsgve encounter XgosNN4717-85-60Q48:20:04Telepho ne encounter NoteTXT1.2.840.708570.1.13.104.2 .7.2.177965|[id number] e for patient rotx289085857Vtavmmq Gerard CASTANEDA[address] UmebNuynizjcmHsnykpwuuVCKJ492589 1683HBUCSXINQJGHTOOHLYMFTK5922-0 :20:041.2.840.339247.1.72 .3.15|1.2.840.761615.1.13.104.2. 7.2.727879_[id number] Olive Gee [facility]
--- NOTE | 2023-11-14 10:42 | RAD REPORT ---
EXAM DESCRIPTION: CT - Head C Spine Mpr Wo Con - 11/14/2023 10:33 am CLINICAL HISTORY: Left arm numbness COMPARISON: May 2023 TECHNIQUE: Computed axial tomography of the head and cervical spine was obtained. Sagittal and coronal reconstruction was performed. All CT scans are performed using dose optimization technique as appropriate and may include automated exposure control or mA/KV adjustment according to patient size. FINDINGS: An intracranial bleed is not seen. The ventricles are normal in caliber. No significant hypodensity within the brain. An extra-axial fluid collection is not noted. Fluid within the visualized sinuses and mastoids is not seen A cervical fracture is not visualized. No dislocation is noted. No high-grade central/foraminal stenosis noted IMPRESSION: No acute intracranial abnormality is seen. A cervical fracture is not visualized. If the patient continues to have symptoms to suggest intracranial /spinal cord/spinal canal pathology then MRI would be recommended
--- NOTE | 2023-11-14 12:10 | RAD REPORT ---
EXAM DESCRIPTION: MRI - Brain Wo Cont - 11/14/2023 11:52 am CLINICAL HISTORY: Left arm numbness COMPARISON: Head CT November 14, 2023 TECHNIQUE: Axial, sagittal, and coronal magnetic resonance images of the brain were obtained. FINDINGS: No significant abnormal signal within the brain Diffusion-weighted/ADC mapping does not reveal evidence of acute infarction. The ventricles are normal caliber. An extra-axial fluid collection is not noted. Fluid within the sinuses/mastoids is not seen IMPRESSION: No acute intracranial abnormality noted
--- NOTE | 2023-11-14 12:44 | EDPHYS ---
Physician Documentation [facility] Name: Larry Morton Age: 38 yrs Sex: Female : 1985 Arrival Date: 11/14/2023 Time: 09:55 Bed 8 Private MD: ED Physician Aramis Limon HPI: 11/14 11:03 This 38 yrs old Black Female presents to ER via Ambulatory with complaints of Shoulder rn Pain. 11:03 The patient or guardian complains of pain, that is acute. left shoulder. Onset: The rn symptoms/episode began/occurred 30 minutes prior to arrival. Modifying factors: the symptoms are alleviated by nothing. The symptoms are aggravated by movement. Associated signs and symptoms: Pertinent positives: tingling, Pertinent negatives: abdominal pain, chest pain, diaphoresis, neck pain, Weakness in left arm. Severity of symptoms: At their worst the symptoms were mild, in the emergency department the symptoms are unchanged. The patient has experienced similar episodes in the past. Patient reports was waiting on an oil change when started to have left arm pain and tingling. Has had a stroke before, this feels different but wanted to make sure that it was not another stroke. Denies injury or fall. Denies chest pain or shortness of breath. No neck injury. Patient reports more discomfort than tingling. Definitely no weakness. No other neurological complaints.. 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 - Social history:: Smoking status: Patient denies any tobacco usage or history of. - Family history:: not pertinent. - Hospitalizations: : No recent hospitalization is reported. ROS: 11:03 Constitutional: Negative for fever, chills, and weight loss, Eyes: Negative for injury, rn pain, redness, and discharge, Neck: Negative for injury, pain, and swelling, Cardiovascular: Negative for chest pain, palpitations, and edema, Respiratory: Negative for shortness of breath, cough, wheezing, and pleuritic chest pain, Abdomen/GI: Negative for abdominal pain, nausea, vomiting, diarrhea, and constipation, Back: Negative for injury and pain, MS/Extremity: Positive for left shoulder and arm pain Skin: Negative for injury, rash, and discoloration, Neuro: Negative for headache, weakness, and seizure, Exam: 11:03 Constitutional: This is a well developed, well nourished patient who is awake, alert, rn and in no acute distress. Head/Face: Normocephalic, atraumatic. Neck: No midline cervical tenderness Cardiovascular: Regular rate and rhythm. No pulse deficits. Respiratory: No increased work of breathing, no retractions or nasal flaring. MS/ Extremity: Pulses equal, no cyanosis. Neuro: Awake and alert, GCS 15, oriented to person, place, time, and situation. Cranial nerves II-XII grossly intact. Motor strength 5/5 in all extremities. Sensory grossly intact. Cerebellar exam normal. Normal gait. Vital Signs: 10:16 BP 119 / 84; Pulse 58; Resp 18; Temp 97.9; Pulse Ox 100% ; Pain 7/10; ap3 10:18 Height 5 ft. 4 in. ; ap3 12:41 BP 100 / 68; Pulse 54; Resp 16; Pulse Ox 98% on R/A; Pain 0/10; nj1 10:16 Pain Scale: Adult ap3 12:41 Pain Scale: Adult nj1 MDM: 10:14 Patient medically screened. rn 12:43 Differential diagnosis: Radiculopathy, TIA, CVA, musculoskeletal pain. Data reviewed: rn vital signs, nurses notes, radiologic studies, CT scan, MRI, and as a result, I will discharge patient. Counseling: I had a detailed discussion with the patient and/or guardian regarding the historical points, exam findings, and any diagnostic results supporting the discharge/admit diagnosis, radiology results, the need for outpatient follow up, to return to the emergency department if symptoms worsen or persist or if there are any questions or concerns that arise at home. Special discussion: I discussed with the patient/guardian in detail that at this point there is no indication for admission to the hospital. It is understood, however, that if the symptoms persist or worsen the patient needs to return immediately for re-evaluation. ED course: No acute findings on CT head or C-spine. Followed up with MRI which is grossly negative. Will DC home with return precautions. CVA/stroke ruled out.. 11/14 10:19 Order name: CT Head C Spine; Complete Time: 11:14 rn 11/14 10:21 Order name: MRI - Brain Wo Cont; Complete Time: 12:20 rn 11/14 10:19 Order name: EKG; Complete Time: 10:20 rn 11/14 10:19 Order name: EKG - Nurse/Tech; Complete Time: 10:29 rn Administered Medications: No medications were administered Disposition Summary: 11/14/23 12:44 Discharge Ordered Notes: Location: Home rn Problem: new rn Symptoms: have improved rn Condition: Stable rn Diagnosis - Cervical disc disorder with radiculopathy, unspecified cervical region rn Followup: rn - With: Private Physician - When: As needed - Reason: Recheck today's complaints, Re-evaluation by your physician Discharge Instructions: - Discharge Summary Sheet rn - Cervical Radiculopathy rn Forms: - Medication Reconciliation Form rn - Thank You Letter rn - 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
--- NOTE | 2023-11-14 12:44 | ER ---
Nurse's Notes [facility] Name: Larry Morton Age: 38 yrs Sex: Female : 1985 Arrival Date: 11/14/2023 Time: 09:55 Bed 8 Private MD: Diagnosis: Cervical disc disorder with radiculopathy, unspecified cervical region Presentation: 11/14 10:16 Chief complaint: Patient states: she started having left shoulder pain with tingling in ap3 her left hand. patient states the sensations began approx 30mins prior to arrival. Coronavirus screen: At this time, the client does not indicate any symptoms associated with coronavirus-19. Ebola Screen: No symptoms or risks identified at this time. Initial Sepsis Screen: Does the patient meet any 2 criteria? No. Patient's initial sepsis screen is negative. Does the patient have a suspected source of infection? No. Patient's initial sepsis screen is negative. Risk Assessment: Do you want to hurt yourself or someone else? Patient reports no desire to harm self or others. Onset of symptoms was November 14, 2023 at 09:45. 10:16 Method Of Arrival: Ambulatory ap3 10:16 Acuity: CELESTINO 3 ap3 Triage Assessment: 10:17 General: Appears in no apparent distress. Behavior is calm, cooperative, appropriate ap3 for age. Pain: Complains of pain in anterior aspect of left shoulder. Neuro: Level of Consciousness is awake, alert, obeys commands, Oriented to person, place, time, situation, Appropriate for age Reports tingling feeling in the left arm. Cardiovascular: Patient's skin is warm and dry. Respiratory: Airway is patent Respiratory effort is even, unlabored, Respiratory pattern is regular, symmetrical. 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 - Social history:: Smoking status: Patient denies any tobacco usage or history of. - Family history:: not pertinent. - Hospitalizations: : No recent hospitalization is reported. Screenin:18 [facility] ED Fall Risk Assessment (Adult) History of falling in the last 3 months, ap3 including since admission No falls in past 3 months (0 pts). Abuse screen: Denies threats or abuse. Nutritional screening: No deficits noted. Tuberculosis screening: No symptoms or risk factors identified. Assessment: 10:29 Reassessment: See triage assessment. nj1 12:44 Reassessment: Patient appears in no apparent distress at this time. Patient and/or nj1 family updated on plan of care and expected duration. Pain level reassessed. Patient is alert, oriented x 3, equal unlabored respirations, skin warm/dry/pink. Vital Signs: 10:16 BP 119 / 84; Pulse 58; Resp 18; Temp 97.9; Pulse Ox 100% ; Pain 7/10; ap3 10:18 Height 5 ft. 4 in. ; ap3 12:41 BP 100 / 68; Pulse 54; Resp 16; Pulse Ox 98% on R/A; Pain 0/10; nj1 10:16 Pain Scale: Adult ap3 12:41 Pain Scale: Adult nj1 ED Course: 10:13 Patient arrived in ED. gm2 10:14 Aramis Limon MD is Attending Physician. rn 10:17 Triage completed. ap3 10:18 Arm band placed on right wrist. ap3 10:21 Lesley Montero, ISMAEL is Primary Nurse. nj1 10:30 Patient has correct armband on for positive identification. Bed in low position. Call nj1 light in reach. Provided Education on: call light, fall precautions. 10:33 CT Head C Spine In Process Unspecified. EDMS 11:54 MRI - Brain Wo Cont In Process Unspecified. EDMS 12:49 No provider procedures requiring assistance completed. Patient did not have IV access nj1 during this emergency room visit. Administered Medications: No medications were administered Medication: 12:50 VIS not applicable for this client. nj1 Outcome: 12:44 Discharge ordered by . rn 12:50 Discharged to home ambulatory, nj1 12:50 Condition: stable 12:50 Discharge instructions given to patient, Instructed on discharge instructions, follow up and referral plans. medication usage, Demonstrated understanding of instructions, follow-up care, medications, Prescriptions given X 2, 12:51 Patient left the ED. nj1 Signatures: Dispatcher [employer] EDMS Aramis Limon MD MD rn Prokisch, Amanda, RN RN ap3 Lesley Montero, RN RN nj1 Magali Bond 2
[2023-11-14 14:03] VITALS: BP 100/68; TEMP 97.9; O2SAT 98
--- NOTE | 2023-11-15 16:30 | EKG ---
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
== END ==
LOC: ER 09:55
DX: M50.10 Cervical disc disorder with radiculopathy, unspecified cervical region (principal)
CPT/HCPCS: 70450; 70551; 72125; 93005; 99283

== ENCOUNTER → 2024-01-01 | Emergency (ER) | payer OTHER ==
[~2024-01-01] MED LIST: AMOX/K CLAV 875 MG TAB ONE; DIAZEPAM 10 MG/2 ML INJ SYRINGE ONE; MECLIZINE HCL 12.5 MG TAB ONE; NA CHLORIDE 0.9% 1,000 ML ONE
--- OUTSIDE RECORDS SUMMARY | 2024-01-01 12:18 | XMS REPORT | Continuity of Care Document ---
Author Name Unknown Address [address] [facility] [address] [place] [address] [facility] thconnect Address [address] [facility] [address] [place] [address] Care Team Providers Care Seam Hammerer Name Role Phone LOLA BAPTISTE Primary Care Physician NI Rockwell Attending Clinician NI Bynum Attending Clinician MARGARITO Ye Attending Clinician UnavailMARGARITO Hill Attending Clinician Leandra Cottrell MD Attending Clinician [phone] Lola Goldstein Attending Clinician [phone] LOLA BAPTISTE Attending Clinician Unavailable Lab, Ang - Db Attending Clinician Unavailable Doctor Unassigned, [place] Attending Clinician U LEANDRA Soriano Attending Clinician Unavailable MITZI MCBRIDE Attending Clinician Unavailable Mitzi Mcbride MD Attending Clinician [phone] Sheryl Wooten PA-C Attending Clinician [phone] MITZI MCBRIDE Admitting Clinician Unavailable Payers Payer Name Policy Type Policy Number Effective Date Expirati on Date Source [employer] GENERIC [id number] 2022 00:00:00 2022-10 00:00:00 Problems Condition Name Condition Details Condition Category Status Onset Date Resolution Date Last Treatment Date Treating Clinician Comments Source Vitamin D deficiency Vitamin D deficiency Disease Active 07-09 00:00: 00 [facility] Obesity (BMI 30.0-34.9) Obesity (BMI 30.0-34.9) Disease Active 07-09 00:00: 00 [facility] Status post gastric bypass for obesity Status post gastric bypass for obesity Disease Active 07-09 00:00: 00 [facility] NSVT (nonsustai faith ventricula r tachycardi a) NSVT (nonsustai faith ventricula r tachycardi a) Disease Active 05-07 00:00: 00 [facility] PFO (patent foramen ovale) PFO (patent foramen ovale) Disease Active 05-07 00:00: 00 [facility] Obesity due to excess calories, unspecifie d classifica tion, unspecifie d whether serious comorbidit y present Obesity due to excess calories, unspecifie d classifica tion, unspecifie d whether serious comorbidit y present Disease Active 03-09 00:00: 00 [facility] Obesity due to excess calories, unspecifie d classifica tion, unspecifie d whether serious comorbidit y present Obesity due to excess calories, unspecifie d classifica tion, unspecifie d whether serious comorbidit y present Disease Active 03-09 00:00: 00 [facility] Orthostati c hypotensio n Orthostati c hypotensio n Disease Active 03-09 00:00: 00 [facility] Obesity (BMI 30-39.9) Obesity (BMI 30-39.9) Disease Active 03-09 00:00: 00 [facility] History of transient ischemic attack (TIA) History of transient ischemic attack (TIA) Disease Active 03-09 00:00: 00 [facility] Dizziness and giddiness Dizziness and giddiness Disease Active 03-09 00:00: 00 [facility] Sinus bradycardi a Sinus bradycardi a Disease Active 03-09 00:00: 00 [facility] Allergies, Adverse Reactions, Alerts Allergy Name Allergy Type Status Severity Reaction(s) Onset Date Inactive Date Treating Clinician Comments Source NO KNOWN ALLERGIE S Drug Class Active [facility] Social History Social Habit Start Date Stop Date Quantity Comments Source Gender identity [facility] SDOH Alcohol Std Drinks [facility] History SDOH Alcohol Binge [facility] Alcohol intake 2023-07-09 00:00:00 2023-07-09 00:00:00 Ex-drinker (finding) [facility] History of Social function 2023-05-07 00:00:00 2023-05-07 00:00:00 [facility] Tobacco use and exposure 2023-05-07 00:00:00 2023-05-07 00:00:00 Smokeless tobacco non-user [facility] Exposure to SARS-CoV-2 (event) 2023-02-27 00:00:00 2023-03-09 08:25:00 Not sure [facility] History SDOH Alcohol Frequency 2019-07-02 00:00:00 2019-07-02 00:00:00 1 [facility] Sex Assigned At 1985 00:00:00 1985 00:00:00 [facility] Smoking Status Start Date Stop Date Source Never smoked tobacco [facility] Medications Ordered Medication Name Filled Medication Name Start Date Stop Date Current Medication? Ordering Clinician Indication Dosage Frequency Signature (SIG) Comments Components Source midodrine 2.5 mg tablet 07-13 00:00: 00 Yes [id number] 2.5mg Take 1 tablet by mouth in the morning and 1 tablet at noon and 1 tablet in the evening. [facility] ferrous sulfate (IRON) 325 mg (65 mg iron) tablet 07-09 13:10: 07-09 00:00 :00 No 325mg Take 1 tablet by mouth in the morning and 1 tablet at noon and 1 tablet in the evening. Take with meals. [facility] ferrous sulfate (IRON) 325 mg (65 mg iron) tablet 07-09 13:10: 07-09 00:00 :00 No 325mg Take 1 tablet by mouth in the morning and 1 tablet at noon and 1 tablet in the evening. Take with meals. [facility] foLIC acid 1 mg tablet 2023-0 9-18 13:09: 20 Yes 1mg Take 1 tablet by mouth in the morning. [facility] foLIC acid 1 mg tablet 2023-0 9-18 13:09: 20 Yes 1mg Take 1 tablet by mouth in the morning. [facility] foLIC acid 1 mg tablet 2023-0 9-18 13:09: 20 Yes 1mg Take 1 tablet by mouth in the morning. [facility] foLIC acid 1 mg tablet 2023-0 9-18 13:09: 20 Yes 1mg Take 1 tablet by mouth in the morning. [facility] foLIC acid 1 mg tablet 2023-0 9-18 13:09: 20 Yes 1mg Take 1 tablet by mouth in the morning. [facility] foLIC acid 1 mg tablet 2023-0 9-18 13:09: 20 Yes 1mg Take 1 tablet by mouth in the morning. [facility] foLIC acid 1 mg tablet 2023-0 9-18 13:09: 20 Yes 1mg Take 1 tablet by mouth in the morning. [facility] foLIC acid 1 mg tablet 2023-0 9-18 13:09: 20 Yes 1mg Take 1 tablet by mouth in the morning. [facility] foLIC acid 1 mg tablet 2023-0 9-18 13:09: 20 Yes 1mg Take 1 tablet by mouth in the morning. [facility] midodrine 2.5 mg tablet 2023-0 - 00:00: 00 Yes [id number] 2.5mg Take 1 tablet by mouth in the morning and 1 tablet at noon and 1 tablet in the evening. [facility] midodrine 2.5 mg tablet 2023-0 - 00:00: 00 Yes [id number] 2.5mg Take 1 tablet by mouth in the morning and 1 tablet at noon and 1 tablet in the evening. [facility] midodrine 2.5 mg tablet 2023-0 - 00:00: 00 Yes [id number] 2.5mg Take 1 tablet by mouth in the morning and 1 tablet at noon and 1 tablet in the evening. [facility] midodrine 2.5 mg tablet 06-29 00:00: 00 Yes [id number] 2.5mg Take 1 tablet by mouth in the morning and 1 tablet at noon and 1 tablet in the evening. [facility] midodrine 2.5 mg tablet 06-29 00:00: 00 Yes [id number] 2.5mg Take 1 tablet by mouth in the morning and 1 tablet at noon and 1 tablet in the evening. [facility] midodrine 2.5 mg tablet 06-29 00:00: 00 07-13 00:00 :00 No [id number] 2.5mg Take 1 tablet by mouth in the morning and 1 tablet at noon and 1 tablet in the evening. [facility] foLIC acid 1 mg tablet 06-22 06:59: 44 Yes 1mg Take 1 tablet by mouth in the morning. [facility] ferrous sulfate (IRON) 325 mg (65 mg iron) tablet 06-22 06:59: 44 Yes 325mg Take 1 tablet by mouth in the morning and 1 tablet at noon and 1 tablet in the evening. Take with meals. [facility] foLIC acid 1 mg tablet 06-22 06:59: 44 Yes 1mg Take 1 tablet by mouth in the morning. [facility] ferrous sulfate (IRON) 325 mg (65 mg iron) tablet 06-22 06:59: 44 Yes 325mg Take 1 tablet by mouth in the morning and 1 tablet at noon and 1 tablet in the evening. Take with meals. [facility] foLIC acid 1 mg tablet 0 06-22 06:59: 44 Yes 1mg Take 1 tablet by mouth in the morning. [facility] ferrous sulfate (IRON) 325 mg (65 mg iron) tablet 06-22 06:59: 44 Yes 325mg Take 1 tablet by mouth in the morning and 1 tablet at noon and 1 tablet in the evening. Take with meals. [facility] foLIC acid 1 mg tablet 06-22 06:59: 44 Yes 1mg Take 1 tablet by mouth in the morning. [facility] ferrous sulfate (IRON) 325 mg (65 mg iron) tablet 06-22 06:59: 44 Yes 325mg Take 1 tablet by mouth in the morning and 1 tablet at noon and 1 tablet in the evening. Take with meals. [facility] foLIC acid 1 mg tablet 06-22 06:59: 44 Yes 1mg Take 1 tablet by mouth in the morning. [facility] ferrous sulfate (IRON) 325 mg (65 mg iron) tablet 06-22 06:59: 44 Yes 325mg Take 1 tablet by mouth in the morning and 1 tablet at noon and 1 tablet in the evening. Take with meals. [facility] foLIC acid 1 mg tablet 06-22 06:59: 44 Yes 1mg Take 1 tablet by mouth in the morning. [facility] ferrous sulfate (IRON) 325 mg (65 mg iron) tablet 06-22 06:59: 44 Yes 325mg Take 1 tablet by mouth in the morning and 1 tablet at noon and 1 tablet in the evening. Take with meals. [facility] foLIC acid 1 mg tablet 06-22 06:59: 44 Yes 1mg Take 1 tablet by mouth in the morning. [facility] ferrous sulfate (IRON) 325 mg (65 mg iron) tablet 06-22 06:59: 44 Yes 325mg Take 1 tablet by mouth in the morning and 1 tablet at noon and 1 tablet in the evening. Take with meals. [facility] midodrine 2.5 mg tablet 0 05-31 00:00: 00 Yes [id number] 2.5mg Take 1 tablet by mouth in the morning and 1 tablet at noon and 1 tablet in the evening. [facility] midodrine 2.5 mg tablet 2022-0 05-31 00:00: 00 Yes [id number] 2.5mg Take 1 tablet by mouth in the morning and 1 tablet at noon and 1 tablet in the evening. [facility] midodrine 2.5 mg tablet 2023-0 8-10 00:00: 00 Yes [id number] 2.5mg Take 1 tablet by mouth in the morning and 1 tablet at noon and 1 tablet in the evening. [facility] midodrine 2.5 mg tablet 3-0 8-10 00:00: 00 Yes [id number] 2.5mg Take 1 tablet by mouth in the morning and 1 tablet at noon and 1 tablet in the evening. [facility] midodrine 2.5 mg tablet 3-0 8-10 00:00: 00 Yes [id number] 2.5mg Take 1 tablet by mouth in the morning and 1 tablet at noon and 1 tablet in the evening. [facility] midodrine 2.5 mg tablet 3-0 8-10 00:00: 00 Yes [id number] 2.5mg Take 1 tablet by mouth in the morning and 1 tablet at noon and 1 tablet in the evening. [facility] midodrine 2.5 mg tablet 3-0 8-10 00:00: 00 Yes [id number] 2.5mg Take 1 tablet by mouth in the morning and 1 tablet at noon and 1 tablet in the evening. [facility] midodrine 2.5 mg tablet 3-0 8-10 00:00: 00 Yes [id number] 2.5mg Take 1 tablet by mouth in the morning and 1 tablet at noon and 1 tablet in the evening. [facility] midodrine 2.5 mg tablet 2022-0 8-10 00:00: 00 06-29 00:00 :00 No [id number] 2.5mg Take 1 tablet by mouth in the morning and 1 tablet at noon and 1 tablet in the evening. [facility] midodrine 2.5 mg tablet 3-0 7-17 00:00: 00 Yes [id number] 2.5mg Take 1 tablet by mouth in the morning and 1 tablet at noon and 1 tablet in the evening. [facility] midodrine 2.5 mg tablet 3-0 7-17 00:00: 00 Yes [id number] 2.5mg Take 1 tablet by mouth in the morning and 1 tablet at noon and 1 tablet in the evening. [facility] midodrine 2.5 mg tablet 2022-0 17 00:00: 00 Yes [id number] 2.5mg Take 1 tablet by mouth in the morning and 1 tablet at noon and 1 tablet in the evening. [facility] midodrine 2.5 mg tablet 3-0 17 00:00: 00 - 00:00 :00 No [id number] 2.5mg Take 1 tablet by mouth in the morning and 1 tablet at noon and 1 tablet in the evening. [facility] foLIC acid 1 mg tablet 2022-0 03-09 08:45: 47 Yes 1mg Take 1 tablet by mouth in the morning. [facility] ferrous sulfate (IRON) 325 mg (65 mg iron) tablet 0 03-09 08:45: 47 Yes 325mg Take 1 tablet by mouth in the morning and 1 tablet at noon and 1 tablet in the evening. Take with meals. [facility] foLIC acid 1 mg tablet 2022-0 03-09 08:45: 47 Yes 1mg Take 1 tablet by mouth in the morning. [facility] ferrous sulfate (IRON) 325 mg (65 mg iron) tablet 2022-0 03-09 08:45: 47 Yes 325mg Take 1 tablet by mouth in the morning and 1 tablet at noon and 1 tablet in the evening. Take with meals. [facility] foLIC acid 1 mg tablet 2022-0 03-09 08:45: 47 Yes 1mg Take 1 tablet by mouth in the morning. [facility] ferrous sulfate (IRON) 325 mg (65 mg iron) tablet 0 03-09 08:45: 47 Yes 325mg Take 1 tablet by mouth in the morning and 1 tablet at noon and 1 tablet in the evening. Take with meals. [facility] foLIC acid 1 mg tablet 2022-0 03-09 08:45: 47 Yes 1mg Take 1 tablet by mouth in the morning. [facility] ferrous sulfate (IRON) 325 mg (65 mg iron) tablet 2022-0 19 08:45: 47 Yes 325mg Take 1 tablet by mouth in the morning and 1 tablet at noon and 1 tablet in the evening. Take with meals. [facility] foLIC acid 1 mg tablet 0 03-09 08:45: 47 Yes 1mg Take 1 tablet by mouth in the morning. [facility] ferrous sulfate (IRON) 325 mg (65 mg iron) tablet 0 03-09 08:45: 47 Yes 325mg Take 1 tablet by mouth in the morning and 1 tablet at noon and 1 tablet in the evening. Take with meals. [facility] foLIC acid 1 mg tablet 0 03-09 08:45: 47 Yes 1mg Take 1 tablet by mouth in the morning. [facility] ferrous sulfate (IRON) 325 mg (65 mg iron) tablet 0 03-09 08:45: 47 Yes 325mg Take 1 tablet by mouth in the morning and 1 tablet at noon and 1 tablet in the evening. Take with meals. [facility] foLIC acid 1 mg tablet 0 03-09 08:45: 47 Yes 1mg Take 1 tablet by mouth in the morning. [facility] ferrous sulfate (IRON) 325 mg (65 mg iron) tablet 03-09 08:45: 47 Yes 325mg Take 1 tablet by mouth in the morning and 1 tablet at noon and 1 tablet in the evening. Take with meals. [facility] foLIC acid 1 mg tablet 0 03-09 08:45: 47 Yes 1mg Take 1 tablet by mouth in the morning. [facility] ferrous sulfate (IRON) 325 mg (65 mg iron) tablet 0 03-09 08:45: 47 Yes 325mg Take 1 tablet by mouth in the morning and 1 tablet at noon and 1 tablet in the evening. Take with meals. [facility] foLIC acid 1 mg tablet 0 03-09 08:45: 47 Yes 1mg Take 1 tablet by mouth in the morning. [facility] ferrous sulfate (IRON) 325 mg (65 mg iron) tablet 0 03-09 08:45: 47 Yes 325mg Take 1 tablet by mouth in the morning and 1 tablet at noon and 1 tablet in the evening. Take with meals. [facility] foLIC acid 1 mg tablet 2022-0 03-09 08:45: 47 Yes 1mg Take 1 tablet by mouth in the morning. [facility] ferrous sulfate (IRON) 325 mg (65 mg iron) tablet 0 03-09 08:45: 47 Yes 325mg Take 1 tablet by mouth in the morning and 1 tablet at noon and 1 tablet in the evening. Take with meals. [facility] foLIC acid 1 mg tablet 0 03-09 08:45: 47 Yes 1mg Take 1 tablet by mouth in the morning. [facility] ferrous sulfate (IRON) 325 mg (65 mg iron) tablet 0 03-09 08:45: 47 Yes 325mg Take 1 tablet by mouth in the morning and 1 tablet at noon and 1 tablet in the evening. Take with meals. [facility] foLIC acid 1 mg tablet 0 03-09 08:45: 47 Yes 1mg Take 1 tablet by mouth in the morning. [facility] ferrous sulfate (IRON) 325 mg (65 mg iron) tablet 03-09 08:45: 47 Yes 325mg Take 1 tablet by mouth in the morning and 1 tablet at noon and 1 tablet in the evening. Take with meals. [facility] foLIC acid 1 mg tablet 03-09 08:45: 47 Yes 1mg Take 1 tablet by mouth in the morning. [facility] ferrous sulfate (IRON) 325 mg (65 mg iron) tablet 0 03-09 08:45: 47 Yes 325mg Take 1 tablet by mouth in the morning and 1 tablet at noon and 1 tablet in the evening. Take with meals. [facility] foLIC acid 1 mg tablet 0 03-09 08:45: 47 Yes 1mg Take 1 tablet by mouth in the morning. [facility] ferrous sulfate (IRON) 325 mg (65 mg iron) tablet 0 03-09 08:45: 47 Yes 325mg Take 1 tablet by mouth in the morning and 1 tablet at noon and 1 tablet in the evening. Take with meals. [facility] foLIC acid 1 mg tablet 2022-0 03-09 08:45: 47 Yes 1mg Take 1 tablet by mouth in the morning. [facility] ferrous sulfate (IRON) 325 mg (65 mg iron) tablet 2022-0 03-09 08:45: 47 Yes 325mg Take 1 tablet by mouth in the morning and 1 tablet at noon and 1 tablet in the evening. Take with meals. [facility] foLIC acid 1 mg tablet 2022-0 03-09 08:45: 47 Yes 1mg Take 1 tablet by mouth in the morning. [facility] ferrous sulfate (IRON) 325 mg (65 mg iron) tablet 0 03-09 08:45: 47 Yes 325mg Take 1 tablet by mouth in the morning and 1 tablet at noon and 1 tablet in the evening. Take with meals. [facility] foLIC acid 1 mg tablet 0 03-09 08:45: 47 Yes 1mg Take 1 tablet by mouth in the morning. [facility] ferrous sulfate (IRON) 325 mg (65 mg iron) tablet 0 03-09 08:45: 47 Yes 325mg Take 1 tablet by mouth in the morning and 1 tablet at noon and 1 tablet in the evening. Take with meals. [facility] foLIC acid 1 mg tablet 0 03-09 08:45: 47 Yes 1mg Take 1 tablet by mouth in the morning. [facility] ferrous sulfate (IRON) 325 mg (65 mg iron) tablet 0 03-09 08:45: 47 Yes 325mg Take 1 tablet by mouth in the morning and 1 tablet at noon and 1 tablet in the evening. Take with meals. [facility] aspirin 81 mg EC tablet 2022-0 04 00:00: 00 Yes 81mg Take 1 tablet by mouth in the morning. [facility] aspirin 81 mg EC tablet 3-0 -04 00:00: 00 Yes 81mg Take 1 tablet by mouth in the morning. [facility] aspirin 81 mg EC tablet 3-0 5-04 00:00: 00 Yes 81mg Take 1 tablet by mouth in the morning. [facility] aspirin 81 mg EC tablet 3-0 5-04 00:00: 00 Yes 81mg Take 1 tablet by mouth in the morning. [facility] aspirin 81 mg EC tablet 2022-0 -04 00:00: 00 Yes 81mg Take 1 tablet by mouth in the morning. [facility]-0 5-04 00:00: 00 Yes 81mg Take 1 tablet by mouth in the morning. [facility] aspirin 81 mg EC tablet 3-0 5-04 00:00: 00 Yes 81mg Take 1 tablet by mouth in the morning. [facility] EC tablet 3-0 5-04 00:00: 00 Yes 81mg Take 1 tablet by mouth in the morning. [facility] EC tablet 3-0 5-04 00:00: 00 Yes 81mg Take 1 tablet by mouth in the morning. [facility] aspirin 81 mg EC tablet 3-0 -04 00:00: 00 Yes 81mg Take 1 tablet by mouth in the morning. [facility] aspirin 81 mg EC tablet 3-0 5-04 00:00: 00 Yes 81mg Take 1 tablet by mouth in the morning. [facility] aspirin 81 mg EC tablet 3-0 -04 00:00: 00 Yes 81mg Take 1 tablet by mouth in the morning. [facility] aspirin 81 mg EC tablet 3-0 5-04 00:00: 00 Yes 81mg Take 1 tablet by mouth in the morning. [facility] aspirin 81 mg EC tablet 3-0 5-04 00:00: 00 Yes 81mg Take 1 tablet by mouth in the morning. [facility] aspirin 81 mg EC tablet 3-0 -04 00:00: 00 Yes 81mg Take 1 tablet by mouth in the morning. [facility] aspirin 81 mg EC tablet 3-0 5-04 00:00: 00 Yes 81mg Take 1 tablet by mouth in the morning. [facility] aspirin 81 mg EC tablet 3-0 5-04 00:00: 00 Yes 81mg Take 1 tablet by mouth in the morning. [facility] aspirin 81 mg EC tablet 3-0 5-04 00:00: 00 Yes 81mg Take 1 tablet by mouth in the morning. [facility] aspirin 81 mg EC tablet 3-0 5-04 00:00: 00 Yes 81mg Take 1 tablet by mouth in the morning. [facility] EC tablet 3-0 5-04 00:00: 00 Yes 81mg Take 1 tablet by mouth in the morning. [facility] EC tablet 3-0 5-04 00:00: 00 Yes 81mg Take 1 tablet by mouth in the morning. [facility] EC tablet 3-0 5-04 00:00: 00 Yes 81mg Take 1 tablet by mouth in the morning. [facility] EC tablet 3-0 5-04 00:00: 00 Yes 81mg Take 1 tablet by mouth in the morning. [facility] aspirin 81 mg EC tablet 3-0 5-04 00:00: 00 Yes 81mg Take 1 tablet by mouth in the morning. [facility] aspirin 81 mg EC tablet 3-0 5-04 00:00: 00 Yes 81mg Take 1 tablet by mouth in the morning. [facility] aspirin 81 mg EC tablet 3-0 5-04 00:00: 00 Yes 81mg Take 1 tablet by mouth in the morning. [facility] aspirin 81 mg EC tablet 3-0 5-04 00:00: 00 Yes 81mg Take 1 tablet by mouth in the morning. [facility] aspirin 81 mg EC tablet 3-0 5-04 00:00: 00 Yes 81mg Take 1 tablet by mouth in the morning. [facility] aspirin 81 mg EC tablet 3-0 5-04 00:00: 00 Yes 81mg Take 1 tablet by mouth in the morning. [facility] aspirin 81 mg EC tablet 3-0 5-04 00:00: 00 Yes 81mg Take 1 tablet by mouth in the morning. [facility] aspirin 81 mg EC tablet 3-0 5-04 00:00: 00 Yes 81mg Take 1 tablet by mouth in the morning. [facility] aspirin 81 mg EC tablet 3-0 5-04 00:00: 00 Yes 81mg Take 1 tablet by mouth in the morning. [facility] aspirin 81 mg EC tablet 2022-0 02-22 00:00: 00 Yes 81mg Take 1 tablet by mouth in the morning. [facility] aspirin 81 mg EC tablet 2022-0 04 00:00: 00 Yes 81mg Take 1 tablet by mouth in the morning. [facility] atorvastati n 40 mg tablet 2022-0 27 00:00: 00 Yes 40mg Take 1 tablet by mouth at bedtime. [facility] atorvastati n 40 mg tablet 2022-0 27 00:00: 00 Yes 40mg Take 1 tablet by mouth at bedtime. [facility] atorvastati n 40 mg tablet 2022-0 27 00:00: 00 Yes 40mg Take 1 tablet by mouth at bedtime. [facility] atorvastati n 40 mg tablet 2022-0 02-15 00:00: 00 Yes 40mg Take 1 tablet by mouth at bedtime. [facility] atorvastati n 40 mg tablet 2022-0 27 00:00: 00 Yes 40mg Take 1 tablet by mouth at bedtime. [facility] atorvastati n 40 mg tablet 2022-0 27 00:00: 00 Yes 40mg Take 1 tablet by mouth at bedtime. [facility] atorvastati n 40 mg tablet 2022-0 27 00:00: 00 Yes 40mg Take 1 tablet by mouth at bedtime. [facility] atorvastati n 40 mg tablet 2022-0 27 00:00: 00 Yes 40mg Take 1 tablet by mouth at bedtime. [facility] atorvastati n 40 mg tablet 3-0 27 00:00: 00 Yes 40mg Take 1 tablet by mouth at bedtime. [facility] atorvastati n 40 mg tablet 2022-0 27 00:00: 00 Yes 40mg Take 1 tablet by mouth at bedtime. [facility] atorvastati n 40 mg tablet 3-0 27 00:00: 00 Yes 40mg Take 1 tablet by mouth at bedtime. [facility] atorvastati n 40 mg tablet 2022-0 02-15 00:00: 00 Yes 40mg Take 1 tablet by mouth at bedtime. [facility] atorvastati n 40 mg tablet 2022-0 02-15 00:00: 00 Yes 40mg Take 1 tablet by mouth at bedtime. [facility] atorvastati n 40 mg tablet 2022-0 02-15 00:00: 00 Yes 40mg Take 1 tablet by mouth at bedtime. [facility] atorvastati n 40 mg tablet 2022-0 02-15 00:00: 00 Yes 40mg Take 1 tablet by mouth at bedtime. [facility] atorvastati n 40 mg tablet 2022-0 02-15 00:00: 00 Yes 40mg Take 1 tablet by mouth at bedtime. [facility] atorvastati n 40 mg tablet 2022-0 02-15 00:00: 00 Yes 40mg Take 1 tablet by mouth at bedtime. [facility] atorvastati n 40 mg tablet 2022-0 02-15 00:00: 00 Yes 40mg Take 1 tablet by mouth at bedtime. [facility] atorvastati n 40 mg tablet 2022-0 02-15 00:00: 00 Yes 40mg Take 1 tablet by mouth at bedtime. [facility] atorvastati n 40 mg tablet 2022-0 02-15 00:00: 00 Yes 40mg Take 1 tablet by mouth at bedtime. [facility] atorvastati n 40 mg tablet 2022-0 02-15 00:00: 00 Yes 40mg Take 1 tablet by mouth at bedtime. [facility] atorvastati n 40 mg tablet 3-0 02-15 00:00: 00 Yes 40mg Take 1 tablet by mouth at bedtime. [facility] atorvastati n 40 mg tablet 2022-0 02-15 00:00: 00 Yes 40mg Take 1 tablet by mouth at bedtime. [facility] atorvastati n 40 mg tablet 2022-0 02-15 00:00: 00 Yes 40mg Take 1 tablet by mouth at bedtime. [facility] atorvastati n 40 mg tablet 0 02-15 00:00: 00 Yes 40mg Take 1 tablet by mouth at bedtime. [facility] atorvastati n 40 mg tablet 0 02-15 00:00: 00 Yes 40mg Take 1 tablet by mouth at bedtime. [facility] atorvastati n 40 mg tablet 0 02-15 00:00: 00 Yes 40mg Take 1 tablet by mouth at bedtime. [facility] atorvastati n 40 mg tablet 0 02-15 00:00: 00 Yes 40mg Take 1 tablet by mouth at bedtime. [facility] atorvastati n 40 mg tablet 0 02-15 00:00: 00 Yes 40mg Take 1 tablet by mouth at bedtime. [facility] atorvastati n 40 mg tablet 0 02-15 00:00: 00 Yes 40mg Take 1 tablet by mouth at bedtime. [facility] atorvastati n 40 mg tablet 0 02-15 00:00: 00 Yes 40mg Take 1 tablet by mouth at bedtime. [facility] atorvastati n 40 mg tablet 0 02-15 00:00: 00 Yes 40mg Take 1 tablet by mouth at bedtime. [facility] atorvastati n 40 mg tablet 02-15 00:00: 00 Yes 40mg Take 1 tablet by mouth at bedtime. [facility] atorvastati n 40 mg tablet 0 02-15 00:00: 00 Yes 40mg Take 1 tablet by mouth at bedtime. [facility] ibuprofen (MOTRIN) 600 mg tablet 05-02 00:00: 00 Yes 600mg Take 1 tablet by mouth every 6 (six) hours as needed for Pain (scale 4-6). [facility] ibuprofen (MOTRIN) 600 mg tablet 05-02 00:00: 00 Yes 600mg Take 1 tablet by mouth every 6 (six) hours as needed for Pain (scale 4-6). [facility] ibuprofen (MOTRIN) 600 mg tablet 05-02 00:00: 00 Yes 600mg Take 1 tablet by mouth every 6 (six) hours as needed for Pain (scale 4-6). [facility] ibuprofen (MOTRIN) 600 mg tablet 05-02 00:00: 00 Yes 600mg Take 1 tablet by mouth every 6 (six) hours as needed for Pain (scale 4-6). [facility] ibuprofen (MOTRIN) 600 mg tablet 05-02 00:00: 00 Yes 600mg Take 1 tablet by mouth every 6 (six) hours as needed for Pain (scale 4-6). [facility] mg tablet 05-02 00:00: 00 Yes 600mg Take 1 tablet by mouth every 6 (six) hours as needed for Pain (scale 4-6). [facility] 600 mg tablet 05-02 00:00: 00 Yes 600mg Take 1 tablet by mouth every 6 (six) hours as needed for Pain (scale 4-6). [facility] 600 mg tablet 05-02 00:00: 00 Yes 600mg Take 1 tablet by mouth every 6 (six) hours as needed for Pain (scale 4-6). [facility] 600 mg tablet 05-02 00:00: 00 Yes 600mg Take 1 tablet by mouth every 6 (six) hours as needed for Pain (scale 4-6). [facility] ibuprofen (MOTRIN) 600 mg tablet 05-02 00:00: 00 Yes 600mg Take 1 tablet by mouth every 6 (six) hours as needed for Pain (scale 4-6). [facility] ibuprofen (MOTRIN) 600 mg tablet 05-02 00:00: 00 Yes 600mg Take 1 tablet by mouth every 6 (six) hours as needed for Pain (scale 4-6). [facility] 600 mg tablet 05-02 00:00: 00 Yes 600mg Take 1 tablet by mouth every 6 (six) hours as needed for Pain (scale 4-6). [facility] 600 mg tablet 05-02 00:00: 00 Yes 600mg Take 1 tablet by mouth every 6 (six) hours as needed for Pain (scale 4-6). [facility] ibuprofen (MOTRIN) 600 mg tablet 05-02 00:00: 00 Yes 600mg Take 1 tablet by mouth every 6 (six) hours as needed for Pain (scale 4-6). [facility] ibuprofen (MOTRIN) 600 mg tablet 05-02 00:00: 00 Yes 600mg Take 1 tablet by mouth every 6 (six) hours as needed for Pain (scale 4-6). [facility] 600 mg tablet 05-02 00:00: 00 Yes 600mg Take 1 tablet by mouth every 6 (six) hours as needed for Pain (scale 4-6). [facility]IN[facility] 600 mg tablet 05-02 00:00: 00 Yes 600mg Take 1 tablet by mouth every 6 (six) hours as needed for Pain (scale 4-6). [facility]OT[facility]IN[facility] 600 mg tablet 05-02 00:00: 00 Yes 600mg Take 1 tablet by mouth every 6 (six) hours as needed for Pain (scale 4-6). [facility]OT[facility]IN[facility] 600 mg tablet 05-02 00:00: 00 Yes 600mg Take 1 tablet by mouth every 6 (six) hours as needed for Pain (scale 4-6). [facility]OT[facility]IN) 600 mg tablet 05-02 00:00: 00 Yes 600mg Take 1 tablet by mouth every 6 (six) hours as needed for Pain (scale 4-6). [facility]OT[facility]IN) 600 mg tablet 05-02 00:00: 00 Yes 600mg Take 1 tablet by mouth every 6 (six) hours as needed for Pain (scale 4-6). [facility]OTRIN) 600 mg tablet 05-02 00:00: 00 Yes 600mg Take 1 tablet by mouth every 6 (six) hours as needed for Pain (scale 4-6). [facility] ibuprofen (MOTRIN) 600 mg tablet 05-02 00:00: 00 Yes 600mg Take 1 tablet by mouth every 6 (six) hours as needed for Pain (scale 4-6). [facility]OTRIN) 600 mg tablet 05-02 00:00: 00 Yes 600mg Take 1 tablet by mouth every 6 (six) hours as needed for Pain (scale 4-6). [facility] ibuprofen (MOTRIN) 600 mg tablet 05-02 00:00: 00 Yes 600mg Take 1 tablet by mouth every 6 (six) hours as needed for Pain (scale 4-6). [facility]IN) 600 mg tablet 05-02 00:00: 00 Yes 600mg Take 1 tablet by mouth every 6 (six) hours as needed for Pain (scale 4-6). [facility]OTRIN) 600 mg tablet 05-02 00:00: 00 Yes 600mg Take 1 tablet by mouth every 6 (six) hours as needed for Pain (scale 4-6). [facility] ibuprofen (MOTRIN) 600 mg tablet 05-02 00:00: 00 Yes 600mg Take 1 tablet by mouth every 6 (six) hours as needed for Pain (scale 4-6). [facility]OTRIN) 600 mg tablet 05-02 00:00: 00 Yes 600mg Take 1 tablet by mouth every 6 (six) hours as needed for Pain (scale 4-6). [facility]OTRIN) 600 mg tablet 05-02 00:00: 00 Yes 600mg Take 1 tablet by mouth every 6 (six) hours as needed for Pain (scale 4-6). [facility] (MOTRIN) 600 mg tablet 05-02 00:00: 00 Yes 600mg Take 1 tablet by mouth every 6 (six) hours as needed for Pain (scale 4-6). [facility]OT[facility]IN) 600 mg tablet 05-02 00:00: 00 07-09 00:00 :00 No 600mg Take 1 tablet by mouth every 6 (six) hours as needed for Pain (scale 4-6). [facility] ibuprofen (MOTRIN) 600 mg tablet 05-02 00:00: 00 07-09 00:00 :00 No 600mg Take 1 tablet by mouth every 6 (six) hours as needed for Pain (scale 4-6). [facility] Immunizations Ordered Immunization Name Filled Immunization Name Date Status Comments Source SARS-COV-2 COVID-19 PFIZER VACCINE 2021-05-14 00:00:00 Completed [facility] SARS-COV-2 COVID-19 PFIZER VACCINE 2021-05-14 00:00:00 Completed [facility] SARS-COV-2 COVID-19 PFIZER VACCINE 2021-04-22 00:00:00 Completed [facility] SARS-COV-2 COVID-19 PFIZER VACCINE 2021-04-22 00:00:00 Completed [facility] SARS-COV-2 COVID-19 PFIZER VACCINE Unknown Completed [facility] SARS-COV-2 COVID-19 PFIZER VACCINE Unknown Completed [facility] SARS-COV-2 COVID-19 PFIZER VACCINE Unknown Completed [facility] SARS-COV-2 COVID-19 PFIZER VACCINE Unknown Completed [facility] SARS-COV-2 COVID-19 PFIZER VACCINE Unknown Completed [facility] SARS-COV-2 COVID-19 PFIZER VACCINE Unknown Completed [facility] SARS-COV-2 COVID-19 PFIZER VACCINE Unknown Completed [facility] SARS-COV-2 COVID-19 PFIZER VACCINE Unknown Completed [facility] SARS-COV-2 COVID-19 PFIZER VACCINE Unknown Completed [facility] SARS-COV-2 COVID-19 PFIZER VACCINE Unknown Completed [facility] SARS-COV-2 COVID-19 PFIZER VACCINE Unknown Completed [facility] SARS-COV-2 COVID-19 PFIZER VACCINE Unknown Completed [facility] SARS-COV-2 COVID-19 PFIZER VACCINE Unknown Completed [facility] SARS-COV-2 COVID-19 PFIZER VACCINE Unknown Completed [facility] Vital Signs Vital Name Observation Time Observation Value Comments S ource Systolic blood pressure 2023-07-09 18:10:00 104 mm[Hg] [facility] Diastolic blood pressure 2023-07-09 18:10:00 67 mm[Hg] [facility] Heart rate 2023-07-09 18:10:00 65 /min [facility] Body height 2023-07-09 18:10:00 162.6 cm [facility] Body weight 2023-07-09 18:10:00 89.359 kg [facility] BMI 2023-07-09 18:10:00 33.81 kg/m2 [facility] Oxygen saturation in Arterial blood by Pulse oximetry 2023-07-09 18:10:00 100 /min [facility] Body height 2023-06-22 13:51:00 162.6 cm [facility] Body weight 2023-06-22 13:51:00 86.183 kg [facility] BMI 2023-06-22 13:51:00 32.61 kg/m2 [facility] Systolic blood pressure 2023-06-22 13:15:00 121 mm[Hg] [facility] Diastolic blood pressure 2023-06-22 13:15:00 72 mm[Hg] [facility] Heart rate 2023-06-22 13:15:00 60 /min [facility] Respiratory rate 2023-06-22 13:15:00 21 /min [facility] Oxygen saturation in Arterial blood by Pulse oximetry 2023-06-22 13:15:00 100 /min [facility] Body temperature 2023-06-22 12:05:00 36.61 Wen [facility] Systolic blood pressure 2023-06-16 03:00:00 103 mm[Hg] [facility] Diastolic blood pressure 2023-06-16 03:00:00 61 mm[Hg] [facility] Heart rate 2023-06-16 03:00:00 72 /min [facility] Respiratory rate 2023-06-16 03:00:00 16 /min [facility] Oxygen saturation in Arterial blood by Pulse oximetry 2023-06-16 03:00:00 98 /min [facility] Body temperature 2023-06-15 23:57:00 37.22 Wen [facility] Body height 2023-06-15 23:57:[address] [facility] Body weight 2023-06-15 23:57:00 86.183 kg [facility] BMI 2023-06-15 23:57:00 32.61 kg/m2 [facility] Systolic blood pressure 2023-05-07 19:25:00 107 mm[Hg] [facility] Diastolic blood pressure 2023-05-07 19:25:00 70 mm[Hg] [facility] Heart rate 2023-05-07 19:25:00 54 /min [facility] Respiratory rate 2023-05-07 19:25:00 16 /min [facility] Body height 2023-05-07 19:25:00 162.6 cm [facility] Body weight 2023-05-07 19:25:00 86.592 kg [facility] BMI 2023-05-07 19:25:00 32.77 kg/m2 [facility] Oxygen saturation in Arterial blood by Pulse oximetry 2023-05-07 19:25:00 98 /min [facility] Systolic blood pressure 2023-03-09 13:52:00 110 mm[Hg] [facility] Diastolic blood pressure 2023-03-09 13:52:00 68 mm[Hg] [facility] Heart rate 2023-03-09 13:52:00 71 /min [facility] Body height 2023-03-09 13:52:[address] [facility] Body weight 2023-03-09 13:52:00 85.957 kg [facility] BMI 2023-03-09 13:52:00 32.53 kg/m2 [facility] Oxygen saturation in Arterial blood by Pulse oximetry 2023-03-09 13:52:00 99 /min [facility] Systolic blood pressure 2019-07-02 20:30:00 137 mm[Hg] [facility] Diastolic blood pressure 2019-07-02 20:30:00 91 mm[Hg] [facility] Heart rate 2019-07-02 20:30:00 90 /min [facility] Body temperature 2019-07-02 20:30:00 36.83 Wen [facility] Respiratory rate 2019-07-02 20:30:00 18 /min [facility] Body height 2019-07-02 20:30:00 162.6 cm [facility] Body weight 2019-07-02 20:30:00 155.13 kg [facility] BMI 2019-07-02 20:30:00 58.70 kg/m2 [facility] Procedures Procedure Date / Time Performed Performing Clinician Source MEDICAL RELEASE/CLEARANCE FORMS 2023-07-11 05:01:00 Doctor Unassigned, [place] [facility] TRANSESOPHAGEAL ECHO (JAYNA) COMPLETE W/ DOPPLER AND COLOR 2023-06-22 12:39:00 Leandra Biggs [facility] TRANSESOPHAGEAL ECHO 2023-06-22 05:01:00 Doctor Unassigned, [place] [facility] CT HEAD WO CONTRAST 2023-06-16 02:18:15 Mitzi Mcbride [facility] TROPONIN I 2023-06-16 01:41:00 Mitzi Mcbride [facility] COMP. METABOLIC PANEL ([id number]) 2023-06-16 01:41:00 Mitzi Mcbride [facility] CBC WITH DIFF 2023-06-16 01:41:00 Mitzi Mcbride [facility] N-TERMINAL PRO-BNP 2023-06-16 01:41:00 Mitzi Mcbride [facility] POCT TEST 2023-06-16 01:31:00 Mitzi Mcbride [facility] URINALYSIS 2023-06-16 01:29:00 Mitzi Mcbride [facility] INSURANCE CORRESPONDENCE 2023-04-20 05:01:00 Doc tor Unassigned, [place] [facility] PHYSICIAN CERTIFICATION STATEMENT 2023-04-07 05:01:00 Doctor Unassigned, [place] [facility] HB ECG ROUTINE & RHYTHM STRIP 2023-03-09 13:49:18 Leandra Biggs [facility] CONSENT/REFUSAL FOR DIAGNOSIS AND TREATMENT 2023-03-09 13:26:58 Doctor Unassigned, [place] [facility] REFERRAL- REQUEST/RESPONSE 2023-03-01 05:01:00 D cameronor Unassigned, [place] [facility] Encounters Start Date/Time End Date/Time Encounter Type Admission Type Attending Clinicians Care Facility Care Department Encounter ID Source 2024-03-11 09:30:00 2024-03-11 09:30:00 Outpatient R ANDERSON Lee, NI HELMS [facility] [id number] [facility] 2023-08-13 15:30:00 2023-08-13 15:30:00 Outpatient R MARGARITO CORONADO CHERYAL [facility] [id number] [facility] 2023-07-13 00:00:00 2023-07-13 00:00:00 Refill Leandra Biggs [facility] 1..840.114 350.1.13.10 4.2.7.2.686 [id number] [facility] 2023-07-12 00:00:00 2023-07-12 00:00:00 [facility] 1.2.840.114 350.1.13.10 4.2.7.2.686 [id number] [facility] 2023-07-12 00:00:00 2023-07-12 00:00:00 [facility] 1.2.840.114 350.1.13.10 4.2.7.2.686 [id number] [facility] 2023-07-11 16:30:00 2023-07-11 16:52:09 Outpatient R LOLA BAPTISTE [facility] [id number] [facility] 2023-07-11 16:30:00 2023-07-11 16:45:00 Jewel[facility] Cutter Visit Lab, Ang - Db [facility] 1.2.840.114 350.1.13.10 4.2.7.2.686 [id number] [facility] 2023-07-11 00:00:00 2023-07-11 00:00:00 [facility] 1.2.840.114 350.1.13.10 4.2.7.2.686 [id number] [facility] 2023-07-11 00:00:00 2023-07-11 00:00:00 Orders Only Doctor Unassigned, [place] [facility] 1.2.840.114 350.1.13.10 4.2.7.2.686 [id number] [facility] 2023-07-09 13:00:00 2023-07-09 15:42:52 Outpatient R LOLA BAPTISTE [facility] [id number] [facility] 2023-07-09 13:00:00 2023-07-09 13:30:00 [facility] 1.2.840.114 350.1.13.10 4.2.7.2.686 [id number] [facility] 2023-07-02 09:00:00 2023-07-02 09:00:00 Outpatient R LOLA BAPTISTE [facility] [id number] [facility] 2023-06-29 00:00:00 2023-06-29 00:00:00 Refill Dian, [facility] BU[facility] 1.2.840.114 350.1.13.10 4.2.7.2.686 [id number] [facility] 2023-06-27 00:00:00 2023-06-27 00:00:[address] [facility] 1.2.840.114 350.1.13.10 4.2.7.2.686 [id number] [facility] 2023-06-27 00:00:00 2023-06-27 00:00:[address] [facility] 1.2.840.114 350.1.13.10 4.2.7.2.686 [id number] [facility] 2023-06-27 00:00:00 2023-06-27 00:00:00 Telephone Dian [facility] 1.2.840.114 350.1.13.10 4.2.7.2.686 [id number] [facility] 2023-06-22 06:48:53 2023-06-22 23:59:00 [facility] [id number] 2023-06-22 06:48:53 2023-06-22 23:59:00 [facility] 1.2.840.114 350.1.13.10 4.2.7.2.686 [id number] [facility] 2023-06-19 13:40:00 2023-06-19 13:40:00 [facility] [id number] [facility] 2023-06-15 18:59:00 2023-06-15 23:24:00 Emergency X MITZI MCBRIDE [facility] [id number] [facility] 2023-06-15 18:59:00 2023-06-15 23:24:00 Emergency Mitzi Mcbride [facility] 1.2.840.114 350.1.13.10 4.2.7.2.686 [id number] [facility] 2023-06-05 00:00:00 2023-06-05 00:00:00 [facility] [id number] [facility] 2023-06-04 00:00:00 2023-06-04 00:00:[address] [facility] 1.2.840.114 350.1.13.10 4.2.7.2.686 [id number] [facility] 2023-05-30 00:00:00 2023-05-30 00:00:[address] [facility] 1.2.840.114 350.1.13.10 4.2.7.2.686 [id number] [facility] 2023-05-11 00:00:00 2023-05-11 00:00:[address] [facility] 1.2.840.114 350.1.13.10 4.2.7.2.686 [id number] [facility] 2023-05-07 14:20:00 2023-05-07 14:40:[address] [facility] 1.2.840.114 350.1.13.10 4.2.7.2.686 [id number] [facility] 2023-05-07 14:20:00 2023-05-07 14:20:00 [facility] [id number] [facility] 2023-05-01 00:00:00 2023-05-01 00:00:00 Patient Secure Msg Dian [facility] 1.2.840.114 350.1.13.10 4.2.7.2.686 [id number] [facility] 2023-04-27 00:00:00 2023-04-27 00:00:00 Telephone Dian [facility] 1.2.840.114 350.1.13.10 4.2.7.2.686 [id number] [facility] 2023-04-20 00:00:00 2023-04-20 00:00:00 Telephone Dian [facility] 1.2.840.114 350.1.13.10 4.2.7.2.686 [id number] [facility] 2023-04-20 00:00:00 2023-04-20 00:00:00 Orders Only Doctor Unassigned, [place] [facility] 1.2.840.114 350.1.13.10 4.2.7.2.686 [id number] [facility] 2023-04-13 00:00:00 2023-04-13 00:00:00 Telephone Dian [facility] 1.2.840.114 350.1.13.10 4.2.7.2.686 [id number] [facility] 2023-04-07 00:00:00 2023-04-07 00:00:00 Orders Only Doctor Unassigned, [place] [facility] 1.2.840.114 350.1.13.10 4.2.7.2.686 [id number] [facility] 2023-04-05 00:00:00 2023-04-05 00:00:00 [facility] 1.2.840.114 350.1.13.10 4.2.7.2.686 [id number] [facility] 2023-03-30 00:00:00 2023-03-30 00:00:00 [facility] 1.2840.114 350.1.13.10 4.2.7.2.686 [id number] [facility] 2023-03-29 15:01:56 2023-03-29 23:59:00 [facility] [id number] [facility] 2023-03-13 00:00:00 2023-03-13 00:00:00 [facility] 1.2840.114 350.1.13.10 4.2.7.2.686 [id number] [facility] 2023-03-09 09:40:00 2023-03-09 09:40:00 [facility] 1.2840.114 350.1.13.10 4.2.7.2.686 [id number] [facility] 2023-03-09 09:40:00 2023-03-09 09:16:01 [facility] [id number] [facility] 2023-03-09 00:00:00 2023-03-09 00:00:00 Orders Only Doctor Unassigned, [place] [facility] 1.2840.114 350.1.13.10 4.2.7.2.686 [id number] [facility] 2023-03-08 13:57:51 2023-03-08 13:57:51 Outpatient [facility] [id number] Kit Sultana 2023-03-01 09:56:01 2023-03-01 09:56:01 Outpatient [facility] [id number] Kit Sultana 2023-03-01 00:00:00 2023-03-01 00:00:00 Orders Only Doctor Unassigned, [place] [facility] 1.2.840.114 350.1.13.10 4.2.7.2.686 [id number] [facility] 2023-02-22 10:00:22 2023-02-22 10:00:22 Outpatient [facility] [id number] Kit Sultana 2023-02-16 14:11:58 2023-02-16 14:11:58 Outpatient [facility] [id number] Kit Sultana 2019-07-08 00:00:00 2019-07-08 00:00:00 Case Management Sheryl Wooten [facility] 1.2.840.114 350.1.13.10 4.2.7.2.686 [id number] [facility] 2019-07-02 15:20:19 2019-07-02 15:54:38 Office Visit Sheryl Wooten [facility] 1.2.840.114 350.1.13.10 4.2.7.2.686 [id number] [facility] Results Test Description Test Time Test Comments Results Result Co mments Source [id number] 02:33:33* Test Item Value Reference Range Interpretation Comme nts TROPONIN I (test code = 9170690096) <=0.034 MIRACLE (test code = MIRACLE) Reference [...] of biotin. Lab Interpretation (test code = 11113-5) Normal [facility] WITH [id number] 02:33:12* Test Item Value Reference Range Interpretation Comme nts WBC (test code = 6690-2) 5.61 See_Comment [Automated [employer] ge] The system which generated this result transmitted reference range: 4.30 - 11.10 10*3/?L. The reference range was not used to interpret this result as normal/abnormal. RBC (test code = 789-8) 4.17 See_Comment [Automated [employer]] The system which generated this result [...] 33.3 g/dL 31.6-35.1 RDW-SD (test code = 45645-9) 51.8 fL 39.0-49.9 H RDW-CV (test code = 788-0) 15.6 % 12.0-15.5 H PLT (test code = 777-3) 209 See_Comment [Automated NiftyThriftya ge] The system which generated this result transmitted reference range: 166 - 358 10*3/?L. The reference range was not used to interpret this result as normal/abnormal. MPV (test code = 27943-2) 11.8 fL 9.5-12.9 NRBC/100 WBC (test code = 4321579491) 0.0 See_Comment [Automated me ssage] The system which generated this result transmitted reference range: 0.0 - 10.0 /100 WBCs. The reference range was not used to interpret this result as normal/abnormal. NRBC x10^3 (test code = 0724032846) See_Comment [Automated messa ge] The system which generated this result transmitted reference range: 10*3/?L. The reference range was not used to interpret this result as normal/abnormal. GRAN MAT (NEUT) % (test code = 770-8) 49.0 % IMM GRAN % (test code = 7668608076) 0.20 % LYMPH % (test code = 736-9) 38.3 % MONO % (test code = 5905-5) 10.5 % EOS % (test code = 713-8) 0.9 % BASO % (test code = 706-2) 1.1 % GRAN MAT x10^3(ANC) (test code = 5673056113) 2.75 10*3/uL 1.88-7.09 IMM GRAN x10^3 (test code = 8771802134) 0.00-0.06 LYMPH x10^3 (test code = 731-0) 2.15 10*3/uL 1.32-3.29 MONO x10^3 (test code = 742-7) 0.59 10*3/uL 0.33-0.92 EOS x10^3 (test code = 711-2) 0.05 10*3/uL 0.03-0.39 BASO x10^3 (test code = 704-7) 0.06 10*3/uL 0.01-0.07 Lab Interpretation (test code = 19195-6) [facility] GU[facility]-CYI9472-51-26 02:31:11* Test Item Value Reference Range Interpretation Comme nts NT-proBNP (test code = 22851-5) 41 pg/mL <=125 Lab Interpretation (test cod e = 88106-9) [facility]OL[facility] (04405)2023-06-16 02:22:09* Test Item Value Reference Range Interpretation Comme nts NA (test code = 4187929323) 140 mmol/L 135-145 K (test code = 3191737437) 4.7 mmol/L 3.5-5.0 CL (test code = 6529156903) 108 mmol/L 98-108 CO2 TOTAL (test code = 4388722498) 24 mmol/L 23-31 AGAP (test code = 3794276547) 8 2-16 BUN (test code = 9366626427) 11 mg/dL 7-23 GLUCOSE (test code = 4863095204) 70 mg/dL 70-110 CREATININE (test code = 6008081746) 0.65 mg/dL 0.50-1.04 TOTAL BILI (test code = 8912009169) 0.2 mg/dL 0.1-1.1 CALCIUM (test code = 4861013495) 8.8 mg/dL 8.6-10.6 T PROTEIN (test code = 9623378342) 7.3 g/dL 6.3-8.2 ALBUMIN (test code = 6739180629) 4.2 g/dL 3.5-5.0 ALK PHOS (test code = 7978686291) 49 U/L 34-122 ALTv (test code = 1742-6) 60 U/L 5-35 H AST(SGOT) (test code = 8007913790) 43 U/L 13-40 H eGFR (test code = 3547774464) 103.1 mL/min/1.73m2 MIRACLE (test code = MIRACLE) [...] imaging tests). Lab Interpretation (test code = 71705-8) [facility] NCRW3234-37-69 01:31:00* Test Item Value Reference Range Interpretation Comme nts POCT PREG (test code = 1605) Negative On board controls acceptable with C Line (test code = 3574) Yes POCT PREG LOT # (test code = 3575) [id number] POCT PREG TEST DATE ( test code = 3576) Lab Interpretation (test cod e = 77182-4) Normal [facility]CCULT [facility]LD,FECAL,IMMUNOASSAY FBHN8811-90-32 11:20:54* Test Item Value Reference Range Interpretation Comme [facility] OCCULT BLD, FECAL (test code = 59179) NEGATIVE NEGATIVE UNLESS OTHER PERRY INDICATED, ALL TESTING PERFORMED AT [facility] [address] [place] [address] TERADATA DEVELOPER: KATELYN GOMEZ M.D. CLIA NUMBER [id number] [facility] [place]. [id number] PATHOLOGIST SMEAR [id number] 13:20:44* Test Item Value Reference Range Interpretation Comme [facility] DIAGNOSIS: (test code = 8200) (NOTE) PERIPHERAL [...] (NOTE) Katelyn Gomez M.D. (electronically signed) Diplomate, [place] [employer] Path[employer] with Subspecialty Certification, Hematology CPT: (test code = 8400) 58306 WBC (test code = 1001) 4.1 K/UL [...] 0.00-0.10 ABS NUCLEATED RBCS (test code = 09423) 0.00 K/UL 0.00-0.11 COMMENTS (test code = 1016) (NOTE) MARKED ANISOCYTO SIS FEW ELLIPTOCYTES MODERATE HYPOCHROMASIA SLIGHT MICROCYTOSIS SLIGHT POIKILOCYTOSIS SLIGHT POLYCHROMASIA FEW TEAR DROP CELLS PLATELETS APPEAR INCREASED UNLESS OTHERWISE INDICATED, ALL TESTING PERFORMED AT [facility] [address] [place] [address] TERADATA DEVELOPER: KATELYN GOMEZ M.D. CLIA NUMBER [id number] [facility] [place]. [id number] HAPTOGLOBIN, [id number] 13:10:19* Test Item Value Reference Range Interpretation Comme nts HAPTOGLOBIN, QUANT (test cod e = 45397) 78 MG/DL 32-197 AZF8140-46-32 07:59:28* Test Item Value Reference Range Interpretation Comme nts LDH (test code = 2224) 178 U/L 135-214 CBC W/AUTO DIFF WITH LIVYBJJJT1291-39-65 23:14:06* Test Item Value Reference Range Interpretation [...] 0.00-0.10 ABS NUCLEATED RBCS (test code = 59176) 0.00 K/UL 0.00-0.11 COMMENTS (test code = 1016) (NOTE) MODERATE ANISOCY TOSIS MARKED HYPOCHROMASIA SLIGHT MICROCYTOSIS SLIGHT POLYCHROMASIA FEW SCHISTOCYTES PLATELETS APPEAR INCREASED RETICULOCYTE WITH UBYJPSIK3146-69-06 23:14:06* Test Item Value Reference Range Interpretation Comme nts RETICULOCYTE COUNT (test cod e = 1018) 3.68 % 0.80-2.40 H ABSOLUTE RETICULOCYTE (test code = 51175) 131.0 K/UL 32.0-105.0 H [id number] 04:46:23* Test Item Value Reference Range Interpretation Comme nts FERRITIN (test code = 2075) 114 NG/ML 13-200 VITAMIN B 12 AND FOLIC QPKQ8632-54-65 04:46:23* Test Item Value Reference Range Interpretation Comme nts VITAMIN B-12 (test code = 2840) 394 [...] IRON BINDING CAPACITY AND IRON AND % OCLDHKJHUK7142-15-20 23:59:13* Test Item Value Reference Range Interpretation Comme nts IRON, SERUM (test code = 2222) 25 UG/DL 37-145 L UNSATURATED IBC (test code = 05714) 445 UG/DL 112-347 H CALC TOTAL IBC (test code = 2077) 470 UG/DL 250-450 H CALC % IRON SAT (test code = 2079) 5 % 20-50 L MCXZNPSGAAG3798-07-49 23:58:52* Test Item Value Reference Range Interpretation Comme nts TRANSFERRIN (test code = 4936) 377 MG/DL 200-360 H WROUROKSQIAG5214-34-59 23:58:52* Test Item Value Reference Range Interpretation Comme nts HOMOCYSTEINE (test code = 4288) 15 UMOL/L <12 H UNLESS OTHERWISE INDICATED, ALL TESTING PERFORMED AT [facility] [address] [place] [address] TERADATA DEVELOPER: KATELYN GOMEZ M.D. CLIA NUMBER [id number] [facility] [place]. [id number] MICROSCOPIC [id number] 04:53:02* Test Item Value Reference Range Interpretation Comme nts WHITE BLOOD CELLS (test code = 1513) 0-5 /HPF 0-5 RED BLOOD CELLS (test code = 1514) 0-2 /HPF 0-2 PLEASE NOTE: NEW REFERENCE RANGE EFFECTIVE 23. EPITHELIAL CELLS (test code = 13498) 6-10 /HPF 0-10 BACTERIA (test code = 1515) >3+ NONE SEEN CRYSTALS (test code = 1516) PRESENT NONE SEEN A CALCIUM OXALATE CRYSTALS CASTS, HYALINE (test code = 1517) TRACE NONE-TRACE CBC W/AUTO DIFF WITH [id number] 15:50:45* Test Item Value Reference Range Interpretation [...] 0.00-0.10 ABS NUCLEATED RBCS (test code = 51264) 0.00 K/UL 0.00-0.11 COMMENTS (test code = 1016) (NOTE) MODERATE ANISOCY TOSIS MODERATE HYPOCHROMASIA MODERATE MICROCYTOSIS PLATELETS APPEAR NORMAL TSH, THIRD XTDUJMWQCS1490-20-73 10:17:10* Test Item Value Reference Range Interpretation Comme nts TSH, THIRD GENERATION (test code = 2821) 4.160 UIU/ML 0.400-4.100 H KH-cwmESG1211-03-29 08:48:32* Test Item Value Reference Range Interpretation Comme nts NT-proBNP (test code = 13826) <50 PG/ML SEE BELOW If NT-ProBNP is less than 300 PG/ML, heart failure is unlikely for allages. Age.................Heart Failure Likely <50 Years...........>=450 PG/ML 50-75 Years.........>=900 PG/ML > 75 Years..........>=1800 PG/ML Methodology: [employer] Electrochemiluminescense Immunoassay [facility] has important pathology staff changes effective 12/20/2022. New pathology staff will provide uninterrupted, excellent patient care and clinical consultation. See URL: [email or web address]. UNLESS OTHERWISE INDICATED, ALL TESTING PERFORMED AT [facility] [address] [place] [address] TERADATA DEVELOPER: KATELYN GOMEZ M.D. CLIA NUMBER [id number] [facility] [place]. [id number] COMPREHENSIVE METABOLIC [id number] 06:00:01* Test Item Value Reference Range Interpretation Comme nts GLUCOSE (test code = 2217) 85 MG/DL 70-99 BUN (test code = 2208) 7 MG/DL 6-20 CREATININE (test code = 2214) 0.71 MG/DL 0.60-1.30 eGFR (2020 CKD-EPI) (test code = 06995) 113 ML/MIN/1.73 >60 CALC BUN/CREAT (test code = 2235) 10 RATIO 6-28 SODIUM (test code = 2231) 141 MEQ/L 133-146 POTASSIUM (test code = 2228) 4.2 MEQ/L 3.5-5.4 CHLORIDE (test code = 2215) 106 MEQ/L 95-107 CARBON DIOXIDE (test code = 2206) 24 MEQ/L 19-31 CALCIUM (test code = 2208) 9.2 MG/DL 8.5-10.5 PROTEIN, TOTAL (test code = 222) 7.4 G/DL 6.1-8.3 ALBUMIN (test code = 2201) 4.2 G/DL 3.5-5.2 CALC GLOBULIN (test code = 2240) 3.2 G/DL 1.9-3.7 CALC A/G RATIO (test code = 223) 1.3 RATIO 1.0-2.6 BILIRUBIN, TOTAL (test code = 2206) 0.2 MG/DL See_Comment [Automated me ssage] The system which generated this result transmitted reference range: <=1.2. The reference range was not used to interpret this result as normal/abnormal. ALKALINE PHOSPHATASE (test code = 2203) 53 U/L 40-112 AST (test code = 2218) 32 U/L 9-40 ALT (test code = 2218) 31 U/L 5-40 LIPID [id number] 06:00:01* Test Item Value Reference Range Interpretation Comme nts CHOLESTEROL (test code = 2210) 128 MG/DL <200 TRIGLYCERIDES (test code = 2232) 66 MG/DL <150 HDL CHOLESTEROL (test code = 0) 62 MG/DL >39 CALC LDL CHOL (test code = 2236) 51 MG/DL <100 NOTE: CALCULATED LDL IS BASED ON MARIPOSA-IYER METHOD WHICHINCLUDES ADJUSTABLE TRIGLYCERIDE:VLDL CHOLESTEROL RATIO.THIS FACTOR VARIES BY MEASURED TRIGLYCERIDE AND NON-HDLCHOLESTEROL CONCENTRATIONS WITH INCREASED CALCULATED LDL SEENIN HIGHER TRIGLYCERIDE OR LOWER NON-HDL SPECIMENS. FOR MOREINFORMATION, SEE CLIENT ANNOUNCEMENT AT [email or web address] RATIO LDL/HDL (test code = 2238) 0.82 RATIO <3.22 HEMOGLOBIN [id number] 05:05:23* Test Item Value Reference Range Interpretation Comme nts HEMOGLOBIN A1c (test code = 77189) 5.3 % 4.2-5.6 History and Physical Notes Date/Time Note Provider Source 2023-06-22 07:00:00 yBhmmoYw1usObhBGGqWF jRMF+J4RdUr/pMqpK3ddWi 2oCn8MH68AHvcYIoJ5V3RO7860-51-93D44:00:00F ormatting of this note might be different from the original.[facility] Echocardiography LabOut-Patient Transesophageal Echo-CardiogramIDENTIFYING DATAPatient [...] on file. Prior surgeries at outside hospitals: noneMaritza has No Known Allergies.She reports that she has never smoked. She has never used smokeless tobacco. She reports that she does not currently use alcohol. She reports no history of drug use.Current Medications:Ms. Morton @CMEDP@Checklist: + Dysphagia, + Esophageal diverticula, + Esophageal [...] rows by the nurse. Time out performed. 14268-0Wvthljm and physical tfzdID6824-76-91P62:07:45History and physical noteTXT1.2.840.629648.1.13.104.2.7.2.82791 9|2301772502DYYdnfarnty for patient vwrz85713-3Mwvxtjf and physical noteLN[address] StreetTXTX[address]5577555USUSRAFAELA GARCIAXDYIRPLQEUDWHIKJ9671-08-86R57:07:451.2.840 .673026.1.72.3.15|1.2.840.690773.1.13.104. 2.7.2.727879_[id number] [facility] Notes Date/Time Note Provider Source 2023-06-28 10:55:44 DNpKiz79F/bBs/aORort EkdHtbkCtwkC lnXXNa02bwHkmYE10AO9REFRmV/iq7gJ 8113-35-07X93:55:44 Patient notified 45601-9Rsqlfrthg encounter XvziON9726-94-00R87:55:50Telepho ne encounter NoteTXT1.2.840.547280.1.13.104.2 .7.2.699315|2003151288ZPCgbrsdik e for patient ejfx08209-8LyyuNP834989719Fjbm Sheavly RNUT[address] Dunn StreetTXTX[address] 3300VZRQSAUMZKPZYQGCSFQHYS6202-6 9-07T10:55:501.2.840.400499.1.72 .3.15|1.2.840.748474.1.13.104.2. 7.2.727879_[id number] Adilene Castellanos RN [facility] 2023-06-28 10:45:48 adh1mq7ptcyNwTr6DzuO pZii2vVqnG0k Q5a68mY3Wdas6+oBNRaiDChMunuwKcRn 5119-05-65U84:45:48 Letter in EPIC 88482-9Zwjwswsmh encounter TekxQI6427-28-98Q82:45:58Telepho ne encounter NoteTXT1.2.840.220543.1.13.104.2 .7.2.564188|[id number] e for patient joiq10921-9TtrbWFZYGPMWXV[address]vdGal[address]onGalvestonTXTX[address] 6414HOPLGAMLTLBPELOENDHZBU2360-0 06-28T10:45:581.2.840.053776.1.72 .3.15|1.2.840.248672.1.13.104.2. 7.2.727879_[id number] [facility] 2023-06-28 10:31:30 RGiQKf1LSVNOZCs6+sT5 BZTec6FLUQfK IRtIZb+ySVho+f752BgvlRtKtHXyMkLU 7949-72-89L23:31:30 Discussed disability with patient, she stated that since everything with her JAYNA came back good she does not have a disability. She would like to RTW on 07/03/23Route to Dr Biggs 63807-3Mgnvipfrs encounter UlwkZK1746-67-17Q96:33:56Telepho ne encounter NoteTXT1.2.840.843243.1.13.104.2 .7.2.337774|7212971106PBEalaofqy e for patient lnvu84156-1SldtPK272333697Ftemh A Roller RNUT[address] JatmHypahqvdhAoyqvyoflBBDD514505 4569KQOCEKZBREKRRVABAFNMUL3558-0 9-07T10:33:561.2.840.318048.1.72 .3.15|1.2.840.398210.1.13.104.2. 7.2.727879_[id number] Belkis Wilder RN [facility] 2023-06-28 10:19:20 GrnTe/rPnBvQuT8KMu2/ oojgusCIyXBF U8jAHx/mTgXdJFSa4B/rt4n9e31kJPfJ 4815-98-07S56:19:20 Yesterday we received a disability request. Please verify with the patient what her game plan is. If she is returning to work, what should I say in the disability form? Please describe her degree of disability and duration of disability. 17420-2Ckjheqbrk encounter MbvxRY0967-31-95X68:20:26Telepho ne encounter NoteTXT1.2.840.882404.1.13.104.2 .7.2.739849|2026620439KKVuqidilb e for patient uqgz61753-3HkqlCBBZCLUCQC[address] VfmbNtrxqiszuWyvjanuhkYYOZ905631 0655QZPRBHQFLVITZNCODKWXJH8753-1 9-07T10:20:261.2.840.610148.1.72 .3.15|1.2.840.557603.1.13.104.2. 7.2.727879_[id number] [facility] 2023-06-27 14:40:48 eW5XqaIOkGG8ghFCdKM1 hucVDmDL5/4Y VTkfRDcrA03bFBmGVuX7pl8TaTciU85U 2024-40-70U11:40:48 Patient is requesting a return to work note dated July 02, 2023. Please send via [employer] 94450-6Zvyviwcfm encounter TltkCM6230-08-67R75:45:07Telepho ne encounter NoteTXT1.2.840.765385.1.13.104.2 .7.2.920800|[id number] e for patient qunt57900-9JyyyGA237917586Jbaibf Bere Arevalo[address] MhgyXjiomgtuwNqwnnpusnLHCW909589 9083MFMOHRZDBIDFWSKFCKIJCF2997-5 9-06T14:45:071.2.840.867543.1.72 .3.15|1.2.840.422100.1.13.104.2. 7.2.727879_[id number] Desirae Bere Irinabrandan [facility] 2023-06-27 12:53:46 +i6QVAV4rqblbxZ8GBwi cOdmt88aoUVa IOi0ceAqJqXJm2PijCbyi8Og9c1UjJSM 2487-20-56A06:53:46 Supplementary Report of Disability Request received via fax from [facility] and placed in Dr Biggs's folder to be reviewed and signed. 27252-4Gagqtaagf encounter OgmqCJ1623-90-89D01:55:08Telepho ne encounter NoteTXT1.2.840.061695.1.13.104.2 .7.2.129603|2034973961WEFdnecrob e for patient sgwv19275-3KiuwJM467664136Iyivnx rome Andrade [address] SplnXpywoppzlGahwhinorDSIE803483 0390GAGUKCQYFBKCDPNGVGMJZJ6944-2 9-06T12:55:081.2.840.888336.1.72 .3.15|1.2.840.288297.1.13.104.2. 7.2.727879_[id number] Shonda Andrade [facility] 2023-06-27 09:07:08 P4XpfxVIFT79KldnpNm9 2SNzEUugySZH IzRKXwyL5ZfQp2yev80H6gvY6VFjc9l3 8060-52-24Z14:07:08 Cooper Morton is a 37 year old femaleMarla calling from [facility] She is wanting to confirm proceduresPlease call her [phone] signed by Livia Gonsalez at 06/27/2023 9:09 AM VIS53031-3Yhwefshds encounter NywuJD0124-86-06P42:09:11Telepho ne encounter NoteTXT1.2.840.300667.1.13.104.2 .7.2.872491|8017169753EHHsmnphxk e for patient hvjb02711-3EkcaKD507051371Cgag [address]onGalvestonTXTX[address] 3341SNMDPLHICKDRSZSJYAPMOT0324-5 9-06T09:09:111.2.840.061136.1.72 .3.15|1.2.840.309543.1.13.104.2. 7.2.727879_[id number] Livia Gonsalez [facility] 2023-06-22 11:51:15 j8BEaDE53mw/74CXnM1h F97eHkLee3in zGA+wqf2XR4X/oVQabns48vFAM2uO3Wt 0129-85-61D46:51:15 Spoke with patient , She was able to speak with Colette Swift, all is taken care of 23992-2Gvyszsvga encounter UjawEK6146-97-35U25:52:39Telepho ne encounter NoteTXT1.2.840.586358.1.13.104.2 .7.2.152471|2606200317WNXzhhvgse e for patient wvbg12148-7EidqCB376436890Vhyul A Roller RN[address] PjpfSgeohfktlKtvqytociGZZX762080 4665NDIYOBQKBNWIAEDCCEYLDX2836-4 9-01T11:52:391.2.840.596509.1.72 .3.15|1.2.840.867030.1.13.104.2. 7.2.727879_[id number] Belkis Wilder RN [facility] 2023-06-15 23:23:42 bd/X+QczTCz0sFyDsk7f GN3CXk6phxHq 1FePP//H8dQfsGEai8a2AVN0VSjXeKSh 4256-47-79K50:23:42 Pt given printed and verbal discharge instructions [...] with steady gait, in no apparent distress, 51696-6Aowspamvo department VnqoYQ4639-59-14H10:24:26[facility] NoteTXT1.2.840.759054.1.13.104.2 .7.2.740147|[id number] e for patient ucit45094-6NrrrTG964558218Ykjovq zulay Mcqueen RN[address] StreetTXTX[address] 5408GAFGSOPUTKXUOKOVTCMRNB1725-8 8-25T23:24:261.2.840.983388.1.72 .3.15|1.2.840.940606.1.13.104.2. 7.2.727879_[id number] Rebekah Mcqueen RN [facility] 2023-06-15 18:56:25 lY+W6q0xfzqDnMhwGCPj MDr6/Dgtg/vi V7kICyCFkukmfB337TPg61K33NySTTXN 5089-96-21I94:56:25 Pt states her left arm feels numb and tingling, denies any other symptoms, ambulatory to triage and drove herself to ED. Patient states she has hx of TIA. 39452-3Qlusyyfbh department Triage ygoiMV5439-35-05P46:57:24[facility] Triage noteTXT1.2.840.826865.1.13.104.2 .7.2.457627|[id number] e for patient ebzp70043-6Ulgbrivsw department VagoFE727377073Qbfszqyi R Moss RNUT[address] StreetTXTX[address] 4945KVWDGONEYBKJKLZQLGZPCS5498-0 8-25T18:57:241.2.840.092681.1.72 .3.15|1.2.840.967678.1.13.104.2. 7.2.727879_[id number] Clif Mittal RN [facility] 2023-06-05 15:57:49 ze1pzofOyJYPLvBfuDsX VjwMf4CmmnEd aOgjsNmpWvY9gcvTQL28ctiEjwC4wEcC 4665-06-10Z46:57:49 Cooper Morton is a 37 year old female Patient is calling and wanting to speak with Colette Swift and wouldn't state what it was regarding. Please assist [phone] 43904-4Mebjkmdwh encounter LuwiPR0414-82-65V36:59:14Telepho ne encounter NoteTXT1.2.840.153309.1.13.104.2 .7.2.785276|[id number] e for patient weyp23162-8WksnKC767773818Funw C Garcia[address] YfboGpqdgszagEfdcsvgbrJQTZ747510 7558ZVZKPHLJWDUJRRZVWQWATZ3876-5 5:59:141.2.840.406753.1.72 .3.15|1.2.840.427678.1.13.104.2. 7.2.727879_[id number] Brooklyn Andrade [facility] 2023-06-04 17:09:41 zQohI5IpLA5095hIkD1R uyEGz2+idGLZ CLzH5K88d4mdla07viaq49FdTTaFwi6u 7787-74-27U61:09:41 Cooper Morton is a 37 year old femalea pt. Calling stating that she has been speaking to Colette Swift and needs a call back please advise. Thank you 87045-3Dfvmgjvhu encounter NdkgKL3087-09-81O55:11:52Telepho ne encounter NoteTXT1.2.840.253494.1.13.104.2 .7.2.193228|6265280238VSBobptyll e for patient whhb67120-2HigrOP304806900Ikjowh a Tsuruta Moreno [address]TXTX[address] 1079YKRDRPVQKHWBFRPHWPONYU2097-6 8-14T17:11:521.2.840.494723.1.72 .3.15|1.2.840.073901.1.13.104.2. 7.2.727879_[id number] Shyanne De La Rosa [facility] 2023-05-31 09:51:33 M15mh3wzosgaMcchrU+5 BTNFYmZcojRj ftL0+l37qTfZFcJbHeNImZbyrlTXJ/ 8091-23-99I12:51:33 NACHO 05/07/23 NOV 06/19/23" Dizziness and orthostatic [...] me and discussed with patientNSR, yulisa voltage" 75467-6Vemdceczu encounter ThoxOT5012-61-17W14:57:07Telepho ne encounter NoteTXT1.2.840.362800.1.13.104.2 .7.2.746543|3407212714WZQoayekkb e for patient mlmz98966-0OukoER586466490Njwj Sheavly RN[address]TXTX[address] 5555QYEYTXNATPWVZMHGCVUGXB3227-6 8-10T09:57:071.2.840.309137.1.72 .3.15|1.2.840.085049.1.13.104.2. 7.2.727879_[id number] Adilene Castellanos RN [facility] 2023-05-11 16:17:58 Ie799DL4aFm0YiupVpDQ c9t16YxHWzRY tNCI3/mRvTQp21EzqTjMaaWqGNfvR3EM 6347-65-80X46:17:58 Received medical records request from [facility], will send to [facility] for them to execute. Reach out to [facility] for any updates. [id number] encounter XqkdCW8556-40-76H03:20:04Telepho ne encounter NoteTXT1.2.840.428936.1.13.104.2 .7.2.113673|[id number] e for patient [id number] Castillo MA[address] Op[id number] 6203AOGKNZPOPUKJCBCALPBFVW2431-7 6:20:041.2.840.824507.1.72 .3.15|1.2.840.174279.1.13.104.2. [id number] Olive Gee MA [facility]
[2024-01-01 14:33] LABS: Absolute Basophils 0.1 K/uL (0-0.5); Absolute Lymphocytes (CBC) 1.8 K/uL (0.7-4.9); Basophils % 2.3 % (0-1.3); Eosinophils % 0.7 % (0-4.4); Hematocrit 34.5 % (36.0-45.0); Hemoglobin 11.1 g/dL (12.0-15.0); Lymphocytes % 34.3 % (15.3-44.8); MCV 84.1 fL (80-100); MPV 8.2 fL (7.6-11.3); Platelets 356 thou/uL (152-406)
[2024-01-01 14:50] LABS: Albumin 3.8 g/dL (3.4-5.0); Albumin/Globulin Ratio 0.9 (1.1-1.8); Anion Gap 6.1 mEq/L (5.0-15.0); Bilirubin Total 0.4 mg/dL (0.2-1.0); Globulin 4.2 g/dL (2.3-3.5); Potassium 4.1 mEq/L (3.5-5.1)
--- NOTE | 2024-01-01 15:44 | RAD REPORT ---
EXAM DESCRIPTION: CT - Head Brain Wo Cont - 01/01/2024 3:33 pm CLINICAL HISTORY: dizziness Headache, drowsiness COMPARISON: Head Brain Wo Cont dated 06/02/2023; Head angio dated 06/02/2023; Brain Wo Cont dated 11/14; Head C Spine Mpr Wo Con dated 11/14/2023 TECHNIQUE: All CT scans are performed using dose optimization technique as appropriate and may inclu de automated exposure control or mA/KV adjustment according to patient size. FINDINGS: No intracranial hemorrhage, hydrocephalus or extra-axial fluid collection.No areas of brai n edema or evidence of midline shift. The paranasal sinuses and mastoids are clear. The calvarium is intact. IMPRESSION: No acute intracranial abnormality.
--- NOTE | 2024-01-01 16:06 | ER ---
Nurse's Notes [facility] Name: Larry Morton Age: 38 yrs Sex: Female : 1985 Arrival Date: 01/01/2024 Time: 12:13 Bed 10 Private MD: Lola Baptiste Diagnosis: Other peripheral vertigo, left ear;Acute serous otitis media, unspecified ear Presentation: 12/31 12:35 Chief complaint: Patient states: she feels "extremely dizzy" and feels like her left ap3 ear is clogged. patient states the symptoms began at approx 1200 today, while she was at work. Coronavirus screen: At this time, the client does not indicate any symptoms associated with coronavirus-19. Ebola Screen: No symptoms or risks identified at this time. Initial Sepsis Screen: Does the patient meet any 2 criteria? No. Patient's initial sepsis screen is negative. Does the patient have a suspected source of infection? No. Patient's initial sepsis screen is negative. Risk Assessment: Do you want to hurt yourself or someone else? Patient reports no desire to harm self or others. Onset of symptoms was January 01, 2024 at 12:00. 12:35 Method Of Arrival: Ambulatory ap3 12:35 Acuity: CELESTINO 3 ap3 Triage Assessment: 12:37 General: Appears in no apparent distress. Behavior is calm, cooperative, appropriate ap3 for age. Pain: Denies pain. EENT: Reports feeling of a clogged ear on the left ear. Neuro: Reports dizziness. Cardiovascular: Patient's skin is warm and dry. Respiratory: Airway is patent Respiratory effort is even, unlabored, Respiratory pattern is regular, symmetrical. 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 - Social history:: Smoking status: Patient denies any tobacco usage or history of. - Family history:: not pertinent. Screenin:[facility] Fall Risk Assessment (Adult) History of falling in the last 3 months, ap3 including since admission No falls in past 3 months (0 pts) Confusion or Disorientation No (0 pts) Intoxicated or Sedated No (0 pts) Impaired Gait No (0 pts) Mobility Assist Device Used No (0 pt) Altered Elimination No (0 pt) Score/Fall Risk Level 0 - 2 = Low Risk Oriented to surroundings, Maintained a safe environment, Educated pt \\T\\ family on fall prevention, incl call for assistance when getting out of bed, Assessed \\T\\ reinforced patient's understanding of fall precautions, Provided non-skid footwear, Hourly rounding (assess needs \\T\\ fall precautionary measures) done, Used ambulatory aids as needed (educated on \\T\\ assisted with). Abuse screen: Denies threats or abuse. Nutritional screening: No deficits noted. Tuberculosis screening: No symptoms or risk factors identified. Assessment: 13:06 General: Appears in no apparent distress. Behavior is calm, cooperative. Pain: Denies mb9 pain. Neuro: Pritchard Agitation-Sedation Scale (RASS): 0 - Alert and Calm Level of Consciousness is awake, alert, obeys commands, Oriented to person, place, time, situation, Appropriate for age Reports dizziness, when turning head for the past 40 minutes. Cardiovascular: Patient's skin is warm and dry. Respiratory: Airway is patent Respiratory effort is even, unlabored, Respiratory pattern is regular, symmetrical. GI: No signs and/or symptoms were reported involving the gastrointestinal system. : No signs and/or symptoms were reported regarding the genitourinary system. EENT: Reports clogged left ear. Derm: Skin is pink, warm \\T\\ dry. Musculoskeletal: Range of motion: intact in all extremities. 14:25 Reassessment: No changes from previously documented assessment. Patient and/or family mb9 updated on plan of care and expected duration. Pain level reassessed. Patient is alert, oriented x 3, equal unlabored respirations, skin warm/dry/pink. 16:04 Reassessment: Patient and/or family updated on plan of care and expected duration. Pain mb9 level reassessed. Patient is alert, oriented x 3, equal unlabored respirations, skin warm/dry/pink. Patient states feeling better. Patient states symptoms have improved. Vital Signs: 12:35 BP 114 / 72; Pulse 58; Resp 17; Temp 97.7; Pulse Ox 100% ; Weight 104.33 kg; Height 5 ap3 ft. 4 in. ; Pain 0/10; 14:25 BP 115 / 69; Pulse 68; Resp 18; Pulse Ox 100% on R/A; mb9 15:03 BP 110 / 66; Pulse 62; Resp 16; Pulse Ox 100% on R/A; mb9 12:35 Body Mass Index 39.48 (104.33 kg, 162.56 cm) ap3 12:35 Pain Scale: Adult ap3 ED Course: 12:16 Patient arrived in ED. mr 12:16 Lola Baptiste is Private Physician. mr 12:35 Alex Culver MD is Attending Physician. rt 12:37 Triage completed. ap3 12:38 Arm band placed on right wrist. ap3 12:56 An Waldrop, ISMAEL is Primary Nurse. mb9 13:07 Placed in gown. Bed in low position. Call light in reach. Side rails up X 1. Client mb9 placed on continuous cardiac and pulse oximetry monitoring. NIBP monitoring applied. Door closed. Noise minimized. Warm blanket given. 13:07 No provider procedures requiring assistance completed. mb9 14:25 Inserted saline lock: 22 gauge in right antecubital area, using aseptic technique. mb9 14:26 Initial lab(s) drawn, by me, sent to lab. mb9 15:22 Patient moved to [place] via wheelchair. mb9 15:39 Patient moved back from IN. mb9 16:04 IV discontinued, intact, bleeding controlled, No redness/swelling at site. Pressure mb9 dressing applied. Administered Medications: 13:05 Drug: Meclizine PO 50 mg PO once Route: PO; mb9 13:39 Follow up: Response: No adverse reaction mb9 13:05 Drug: Amoxicillin-Clavulanate PO 875 mg PO once Route: PO; mb9 13:39 Follow up: Response: No adverse reaction mb9 14:26 Drug: NS 0.9% IV 1000 ml IV at 1 bolus Per protocol; 1000 mL bolus Route: IV; Rate: 1 mb9 bolus; Site: right antecubital; 16:05 Follow up: Response: No adverse reaction; IV Status: Completed infusion mb9 14:26 Drug: Diazepam IVP 10 mg IVP once Route: IVP; Site: right antecubital; mb9 16:05 Follow up: Response: No adverse reaction mb9 Medication: 13:07 VIS not applicable for this client. mb9 Outcome: 16:05 Discharge ordered by . rt 16:11 Discharged to home ambulatory, with family, andrez 16:11 Condition: stable 16:11 Discharge instructions given to patient, Instructed on discharge instructions, follow up and referral plans. Demonstrated understanding of instructions, follow-up care, medications, Prescriptions given X 1, 16:11 Patient left the ED. mb9 Signatures: An Hair, Reg Reg mr Sydnie Cotton, RN RN ap3 An Waldrop RN RN mb9 Alex Culver MD MD rt Corrections: (The following items were deleted from the chart) 14:25 13:07 Patient did not have IV access during this emergency room visit. mb9 mb9 14:26 14:25 BP 115 / 59; Pulse 68bpm; Resp 18bpm; Pulse Ox 100% RA; indigo9 mb9
--- NOTE | 2024-01-01 16:06 | EDPHYS ---
Physician Documentation [facility] Name: Larry Morton Age: 38 yrs Sex: Female : 1985 Arrival Date: 01/01/2024 Time: 12:13 Bed 10 Private MD: Lola Baptiste ED Physician Alex Culver HPI: 12/31 13:26 This 38 yrs old Black Female presents to ER via Ambulatory with complaints of Dizziness.rt 13:26 Patient presents to the ED with dizziness. Patient reports sensation that her head is rt spinning as well as a fullness in her left ear started about 30 minutes prior to arrival. She denies nausea, vomiting. Denies other acute complaints, symptoms are moderate in severity, no other aggravating or alleviating factors.. 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 - Social history:: Smoking status: Patient denies any tobacco usage or history of. - Family history:: not pertinent. ROS: 13:26 Constitutional: Negative for fever, chills, and weight loss, Cardiovascular: Negative rt for chest pain, palpitations, and edema, Respiratory: Negative for shortness of breath, cough, wheezing, and pleuritic chest pain, Abdomen/GI: Negative for abdominal pain, nausea, vomiting, diarrhea, and constipation, Skin: Negative for injury, rash, and discoloration, Psych: Negative for depression, anxiety, suicide ideation, homicidal ideation, and hallucinations, 13:26 ENT: Positive for Left ear fullness, negative for pain, 13:26 Neuro: Positive for dizziness, Negative for weakness, Exam: 13:26 Constitutional: This is a well developed, well nourished patient who is awake, alert, rt and in no acute distress. Head/Face: Normocephalic, atraumatic. Chest/axilla: Normal chest wall appearance and motion. Nontender with no deformity. No lesions are appreciated. Cardiovascular: Regular rate and rhythm with a normal S1 and S2. No gallops, murmurs, or rubs. Normal PMI, no JVD. No pulse deficits. Respiratory: Lungs have equal breath sounds bilaterally, clear to auscultation and percussion. No rales, rhonchi or wheezes noted. No increased work of breathing, no retractions or nasal flaring. Abdomen/GI: Soft, non-tender, with normal bowel sounds. No distension or tympany. No guarding or rebound. No evidence of tenderness throughout. Skin: Warm, dry with normal turgor. Normal color with no rashes, no lesions, and no evidence of cellulitis. MS/ Extremity: Pulses equal, no cyanosis. Neurovascular intact. Full, normal range of motion. 13:26 Eyes: Extraocular muscles are intact, no visual field deficits, 2-3 beats of left going nystagmus, head impulse and test of skew negative. 13:26 ENT: This TM is bulging, erythematous, right TM is clear. 13:26 Neuro: Speech normal, cranial nerves II through XII intact, no ataxia [id number], strength and sensation intact in upper and lower extremities, Vital Signs: 12:35 BP 114 / 72; Pulse 58; Resp 17; Temp 97.7; Pulse Ox 100% ; Weight 104.33 kg; Height 5 ap3 ft. 4 in. ; Pain 0/10; 14:25 BP 115 / 69; Pulse 68; Resp 18; Pulse Ox 100% on R/A; mb9 15:03 BP 110 / 66; Pulse 62; Resp 16; Pulse Ox 100% on R/A; mb9 12:35 Body Mass Index 39.48 (104.33 kg, 162.56 cm) ap3 12:35 Pain Scale: Adult ap3 MDM: 12:44 Patient medically screened. rt 16:45 Differential diagnosis: Peripheral vertigo, intracranial pathology, otitis media. Data rt reviewed: vital signs, nurses notes, lab test result(s), radiologic studies. Consideration of Admission/Observation Escalation of care including admission/observation considered. HI NTS exam is consistent with a peripheral vertigo, no focal neurologic deficits. Symptoms are resolved with treatment in the ED, negative CT scan, labs. Low suspicion for central vertigo, does not require admission for further workup.. I considered the following discharge prescriptions or medication management in the emergency department Medications were administered in the Emergency Department. See MAR. Independent interpretation of the following test(s) in the Emergency Department CT Scan: My interpretation is No intracranial hemorrhage seen on interpretation of CT scan images. Counseling: I had a detailed discussion with the patient and/or guardian regarding the historical points, exam findings, and any diagnostic results supporting the discharge/admit diagnosis, lab results, radiology results, the need for outpatient follow up, to return to the emergency department if symptoms worsen or persist or if there are any questions or concerns that arise at home. Response to treatment: the patient's symptoms have markedly improved after treatment. 12/31 14:07 Order name: CBC with Diff rt 12/31 14:07 Order name: CMP rt 12/31 14:36 Order name: CBC with Automated Diff; Complete Time: 15:14 EDMS 12/31 14:50 Order name: Comprehensive Metabolic Panel; Complete Time: 15:14 EDMS 12/31 14:54 Order name: Test Serum, [place]; Complete Time: 15:14 EDMS 12/31 14:07 Order name: CT Head Brain wo Cont rt 12/31 15:45 Order name: CT; Complete Time: 16:03 EDMS Administered Medications: 13:05 Drug: Meclizine PO 50 mg PO once Route: PO; mb9 13:39 Follow up: Response: No adverse reaction mb9 13:05 Drug: Amoxicillin-Clavulanate PO 875 mg PO once Route: PO; mb9 13:39 Follow up: Response: No adverse reaction mb9 14:26 Drug: NS 0.9% IV 1000 ml IV at 1 bolus Per protocol; 1000 mL bolus Route: IV; Rate: 1 mb9 bolus; Site: right antecubital; 16:05 Follow up: Response: No adverse reaction; IV Status: Completed infusion mb9 14:26 Drug: Diazepam IVP 10 mg IVP once Route: IVP; Site: right antecubital; mb9 16:05 Follow up: Response: No adverse reaction mb9 Disposition Summary: 01/01/24 16:05 Discharge Ordered Notes: Location: Home rt Problem: new rt Symptoms: have improved rt Condition: Stable rt Diagnosis - Other peripheral vertigo, left ear rt - Acute serous otitis media, unspecified ear rt Followup: rt - With: Private Physician - When: 2 - 3 days - Reason: Discharge Instructions: - Discharge Summary Sheet rt - Benign Positional Vertigo rt - Otitis Media, Adult, [id number] rt Forms: - Work release form mb9 - Medication Reconciliation Form rt - Thank You Letter rt - Antibiotic Education rt - Prescription Opioid Use rt - Patient Portal Instructions rt - Leadership Thank You Letter rt Prescriptions: - Augmentin 875-125 mg Oral Tablet - take 1 tablet ORAL route every 12 hours for 10 days; 20 tablet; Refills: 0, rt Product Selection Permitted Signatures: Dispatcher [employer] Sydnie Gaines, RN RN ap3 An Waldrop RN RN mb9 Alex Culver MD MD rt
[2024-01-01 16:48] VITALS: BP 110/66; TEMP 97.7; O2SAT 100
== END ==
LOC: ER 12:13
DX: H81.392 Other peripheral vertigo, left ear (principal); H65.02 Acute serous otitis media, left ear; Z86.73 Personal history of transient ischemic attack (TIA), and cerebral infarction without residual deficits
CPT/HCPCS: 85025; 36415; 84703; 80053; 70450; J8597; J3360; J7030

== ENCOUNTER 2024-07-29 14:45 | Emergency (ER) | payer OTHER, SELFPAY ==
--- OUTSIDE RECORDS SUMMARY | 2024-07-29 14:51 | XMS REPORT | Continuity of Care Document ---
Author Name Unknown Address [address] [facility] [address] [place] [address] [facility] Address [address] [facility] [address] [place] [address] Care Team Providers Care Events Associate Name Role Phone LOLA BAPTISTE Primary Care Physician UnavailMyke Davis MD Attending Clinician [phone] LOLA BAPTISTE Attending Clinician Unavailable Leandra Biggs MD Attending Clinician [phone] NI CASSIDY Attending Clinician NI Bynum Attending Clinician MARGARITO Ye Attending Clinician MARGARITO Barron Attending Clinician Lola Underwood Attending Clinician [phone] Lab, Ang - Db Attending Clinician Unavailable Doctor Unassigned, [place] Attending Clinician U LEANDRA Soriano Attending Clinician Unavailable MITZI MCBRIDE Attending Clinician Unavailable Mitzi Mcbride MD Attending Clinician [phone] Sheryl Wooten PA-C Attending Clinician [phone] MITZI MCBRIDE Admitting Clinician Unavailable Payers Payer Name Policy Type Policy Number Effective Date Expirati on Date Source PHCS GENERIC [id number] 2022 00:00:00 2022-10 00:00:00 Problems Condition Name Condition Details Condition Category Status Onset Date Resolution Date Last Treatment Date Treating Clinician Comments Source Vitamin D deficiency Vitamin D deficiency Disease Active 07-09 00:00: 00 [facility] Obesity (BMI 30.0-34.9) Obesity (BMI 30.0-34.9) Disease Active 07-09 00:00: 00 [facility] Status post gastric bypass for obesity Status post gastric bypass for obesity Disease Active 07-09 00:00: 00 [facility] NSVT (nonsustai faith ventricula r tachycardi a) NSVT (nonsustai faith ventricula r tachycardi a) Disease Active 05-07 00:00: 00 [facility] PFO (patent foramen ovale) PFO (patent foramen ovale) Disease Active 05-07 00:00: 00 [facility] Obesity due to excess calories, unspecifie d classifica tion, unspecifie d whether serious comorbidit y present Obesity due to excess calories, unspecifie d classifica tion, unspecifie d whether serious comorbidit y present Disease Active 03-09 00:00: 00 [facility] Obesity due to excess calories, unspecifie d classifica tion, unspecifie d whether serious comorbidit y present Obesity due to excess calories, unspecifie d classifica tion, unspecifie d whether serious comorbidit y present Disease Active 03-09 00:00: 00 [facility] Orthostati c hypotensio n Orthostati c hypotensio n Disease Active 03-09 00:00: 00 [facility] Obesity (BMI 30-39.9) Obesity (BMI 30-39.9) Disease Active 03-09 00:00: 00 [facility] History of transient ischemic attack (TIA) History of transient ischemic attack (TIA) Disease Active 03-09 00:00: 00 [facility] Dizziness and giddiness Dizziness and giddiness Disease Active 03-09 00:00: 00 [facility] Sinus bradycardi a Sinus bradycardi a Disease Active 03-09 00:00: 00 [facility] Allergies, Adverse Reactions, Alerts Allergy Name Allergy Type Status Severity Reaction(s) Onset Date Inactive Date Treating Clinician Comments Source NO KNOWN ALLERGIE S Drug Class Active [facility] Social History Social Habit Start Date Stop Date Quantity Comments Source Gender identity 2024-01-12 09:02:59 Identifies as female gender (finding) [facility] History SDOH Alcohol Std Drinks [facility] History SDOH Alcohol Binge [facility] Sexual orientation [facility] Alcohol intake 2023-07-09 00:00:00 2023-07-09 00:00:00 Ex-drinker (finding) [facility] Alcoholic beverage intake 2023-07-09 00:00:00 2023-07-09 00:00:00 Ex-drinker (finding) [facility] Tobacco use and exposure 2023-05-07 00:00:00 2023-05-07 00:00:00 Smokeless tobacco non-user [facility] History of Social function 2023-04-10 00:00:00 2023-04-10 00:00:00 [facility] Exposure to SARS-CoV-2 (event) 2023-02-27 00:00:00 2023-03-09 08:25:00 Not sure [facility] History SDOH Alcohol Frequency 2019-07-02 00:00:00 2019-07-02 00:00:00 1 [facility] Sex assigned at 1985 00:00:00 1985 00:00:00 [facility] Smoking Status Start Date Stop Date Source Never smoked tobacco Samanta Mckeon [facility] Medications Ordered Medication Name Filled Medication Name Start Date Stop Date Current Medication? Ordering Clinician Indication Dosage Frequency Signature (SIG) Comments Components Source atorvastati n (Lipitor) 40 MG tablet atorvastati n (Lipitor) 40 MG tablet -13 00:00: 00 Yes 40mg TAKE 1 TABLET BY MOUTH EVERYDAY AT BEDTIME Samanta Mckeon [facility] midodrine 2.5 mg tablet 5-20 00:00: 00 Yes [id number] 2.5mg Take 1 tablet by mouth in the morning and 1 tablet at noon and 1 tablet in the evening. [facility] midodrine 2.5 mg tablet 0 07-13 00:00: 00 03-10 00:00 :00 No [id number] 2.5mg Take 1 tablet by mouth in the morning and 1 tablet at noon and 1 tablet in the evening. [facility] ferrous sulfate (IRON) 325 mg (65 mg iron) tablet 07-09 13:10: 09 07-09 00:00 :00 No 325mg Take 1 tablet by mouth in the morning and 1 tablet at noon and 1 tablet in the evening. Take with meals. [facility] foLIC acid 1 mg tablet 0 07-09 13:09: 20 Yes 1mg Take 1 tablet by mouth in the morning. [facility] midodrine 2.5 mg tablet 06-29 00:00: 00 07-13 00:00 :00 No [id number] 2.5mg Take 1 tablet by mouth in the morning and 1 tablet at noon and 1 tablet in the evening. [facility] foLIC acid 1 mg tablet 06-22 06:59: 44 Yes 1mg Take 1 tablet by mouth in the morning. [facility] ferrous sulfate (IRON) 325 mg (65 mg iron) tablet 0 06-22 06:59: 44 Yes 325mg Take 1 tablet by mouth in the morning and 1 tablet at noon and 1 tablet in the evening. Take with meals. [facility] midodrine 2.5 mg tablet 0 8-10 00:00: 00 06-29 00:00 :00 No [id number] 2.5mg Take 1 tablet by mouth in the morning and 1 tablet at noon and 1 tablet in the evening. [facility] midodrine 2.5 mg tablet 2022-0 7-17 00:00: 00 05-31 00:00 :00 No [id number] 2.5mg Take 1 tablet by mouth in the morning and 1 tablet at noon and 1 tablet in the evening. [facility] foLIC acid 1 mg tablet 0 5-19 08:45: 47 Yes 1mg Take 1 tablet by mouth in the morning. [facility] ferrous sulfate (IRON) 325 mg (65 mg iron) tablet 03-09 08:45: 47 Yes 325mg Take 1 tablet by mouth in the morning and 1 tablet at noon and 1 tablet in the evening. Take with meals. [facility] aspirin 81 mg EC tablet 04 00:00: 00 Yes 81mg Take 1 tablet by mouth in the morning. [facility] atorvastati n 40 mg tablet 27 00:00: 00 Yes 40mg Take 1 tablet by mouth at bedtime. [facility] ibuprofen (MOTRIN) 600 mg tablet 05-02 00:00: 00 07-09 00:00 :00 No 600mg Take 1 tablet by mouth every 6 (six) hours as needed for Pain (scale 4-6). [facility] Immunizations Ordered Immunization Name Filled Immunization Name Date Status Comments Source SARS-COV-2 COVID-19 PFIZER VACCINE 2021-05-14 00:00:00 [facility]pleted [facility] SARS-COV-2 COVID-19 PFIZER VACCINE 2021-04-22 00:00:00 Completed [facility] SARS-COV-2 COVID-19 PFIZER VACCINE Unknown Completed [facility] SARS-COV-2 COVID-19 PFIZER VACCINE Unknown Completed [facility] SARS-COV-2 COVID-19 PFIZER VACCINE Unknown Completed [facility] SARS-COV-2 COVID-19 PFIZER VACCINE Unknown Completed [facility] SARS-COV-2 COVID-19 PFIZER VACCINE Unknown Completed [facility] SARS-COV-2 COVID-19 PFIZER VACCINE Unknown Completed [facility] SARS-COV-2 COVID-19 PFIZER VACCINE Unknown Completed [facility] SARS-COV-2 COVID-19 PFIZER VACCINE Unknown Completed [facility] Vital Signs Vital Name Observation Time Observation Value Comments S cydney Systolic blood pressure 2023-07-09 18:10:00 104 mm[Hg] [facility] Diastolic blood pressure 2023-07-09 18:10:00 67 mm[Hg] [facility] Heart rate 2023-07-09 18:10:00 65 /min [facility] Body height 2023-07-09 18:10:00 162.6 cm [facility] Body weight 2023-07-09 18:10:00 89.359 kg [facility] BMI 2023-07-09 18:10:00 33.81 kg/m2 [facility] Oxygen saturation in Arterial blood by Pulse oximetry 2023-07-09 18:10:00 100 /min [facility] Body height 2023-06-22 13:51:00 162.6 cm Univ [facility] Body weight 2023-06-22 13:51:00 86.183 kg [facility] BMI 2023-06-22 13:51:00 32.61 kg/m2 [facility] Systolic blood pressure 2023-06-22 13:15:00 121 mm[Hg] [facility] Diastolic blood pressure 2023-06-22 13:15:00 72 mm[Hg] [facility] Heart rate 2023-06-22 13:15:00 60 /min [facility]ive [facility] Respiratory rate 2023-06-22 13:15:00 21 /min [facility] Oxygen saturation in Arterial blood by Pulse oximetry 2023-06-22 13:15:00 100 /min [facility] Body temperature 2023-06-22 12:05:00 36.61 [facility] Systolic blood pressure 2023-06-16 03:00:00 103 mm[Hg] [facility] Diastolic blood pressure 2023-06-16 03:00:00 61 mm[Hg] [facility] Heart rate 2023-06-16 03:00:00 72 /min Un[facility] Respiratory rate 2023-06-16 03:00:00 16 /min [facility] Oxygen saturation in Arterial blood by Pulse oximetry 2023-06-16 03:00:00 98 /min [facility] Body temperature 2023-06-15 23:57:00 37.22 [facility] Body height 2023-06-15 23:57:00 162.6 cm [facility] Body weight 2023-06-15 23:57:00 86.183 kg [facility] BMI 2023-06-15 23:57:00 32.61 kg/m2 [facility] Systolic blood pressure 2023-05-07 19:25:00 107 mm[Hg] [place] [facility] Diastolic blood pressure 2023-05-07 19:25:00 70 mm[Hg] [facility] Heart rate 2023-05-07 19:25:00 54 /min [facility] Respiratory rate 2023-05-07 19:25:00 16 /min [facility] Body height 2023-05-07 19:25:00 162.6 cm [facility] Body weight 2023-05-07 19:25:00 86.592 kg [facility] BMI 2023-05-07 19:25:00 32.77 kg/m2 [facility] Oxygen saturation in Arterial blood by Pulse oximetry 2023-05-07 19:25:00 98 /min [facility] Systolic blood pressure 2023-03-09 13:52:00 110 mm[Hg] [facility] Diastolic blood pressure 2023-03-09 13:52:00 68 mm[Hg] [facility] Heart rate 2023-03-09 13:52:00 71 /min [facility] Body height 2023-03-09 13:52:00 162.6 cm [facility] Body weight 2023-03-09 13:52:00 85.957 kg [facility] BMI 2023-03-09 13:52:00 32.53 kg/m2 [facility] Oxygen saturation in Arterial blood by Pulse oximetry 2023-03-09 13:52:00 99 /min [facility] Systolic blood pressure 2019-07-02 20:30:00 137 mm[Hg] [facility] Diastolic blood pressure 2019-07-02 20:30:00 91 mm[Hg] [facility] Heart rate 2019-07-02 20:30:00 90 /min [facility] Body temperature 2019-07-02 20:30:00 36.83 [facility] Respiratory rate 2019-07-02 20:30:00 18 /min [facility] Body height 2019-07-02 20:30:00 162.6 cm [facility] Body weight 2019-07-02 20:30:00 155.13 kg [facility] BMI 2019-07-02 20:30:00 58.70 kg/m2 [facility] Procedures Procedure Date / Time Performed Performing Clinician Source MEDICAL RELEASE/CLEARANCE FORMS 2023-07-11 05:01:00 Doctor Unassigned, [place] [facility] TRANSESOPHAGEAL ECHO (JAYNA) COMPLETE W/ DOPPLER AND COLOR 2023-06-22 12:39:00 Leandra Biggs [facility] TRANSESOPHAGEAL ECHO 2023-06-22 05:01:00 Doctor Unassigned, [place] [facility] CT HEAD WO CONTRAST 2023-06-16 02:18:15 Mitzi Mcbride [facility] TROPONIN I 2023-06-16 01:41:00 Mitzi Mcbride [facility] COMP. METABOLIC PANEL ([id number]) 2023-06-16 01:41:00 Mitzi Mcbride [facility] CBC WITH DIFF 2023-06-16 01:41:00 Mitzi Mcbride [facility] N-TERMINAL PRO-BNP 2023-06-16 01:41:00 Mitzi Mcbride [facility] POCT TEST 2023-06-16 01:31:00 Mitzi Mcbride [facility] URINALYSIS 2023-06-16 01:29:00 Mitzi Mcbride [facility] INSURANCE CORRESPONDENCE 2023-04-20 05:01:00 Doc tor Unassigned, [place] [facility] PHYSICIAN CERTIFICATION STATEMENT 2023-04-07 05:01:00 Doctor Unassigned, [place] [facility] HB ECG ROUTINE & RHYTHM STRIP 2023-03-09 13:49:18 Leandra Biggs [facility] CONSENT/REFUSAL FOR DIAGNOSIS AND TREATMENT 2023-03-09 13:26:58 Doctor Unassigned, [place] [facility] REFERRAL- REQUEST/RESPONSE 2023-03-01 05:01:00 Shagufta pickard Unassigned, [place] [facility] Encounters Start Date/Time End Date/Time Encounter Type Admission Type Attending [facility] Facility Care Department Encounter ID Source 2024-05-03 00:00:00 2024-05-03 13:50:13 Myke Reynoso 1.2.840.114 350.1.13.70 8.2.7.2.686 [id number] Samanta Mckeon [facility] 2024-04-03 14:00:00 2024-04-03 14:00:00 Outpatient R LOLA BAPTISTE [facility] [id number] [facility] 2024-03-10 00:00:00 2024-03-31 13:31:05 RefLeandra Castellanos [facility] 1.2.840.114 350.1.13.10 4.2.7.2.686 [id number] [facility] 2024-03-11 09:30:00 2024-03-11 09:30:00 Outpatient R ANDERSON Lee NI ANDERSON SDOROTHEANI [facility] [id number] [facility] 2024-03-10 10:02:18 2024-03-10 10:02:18 Outpatient KARLEY [facility] [id number] Kit Sultana 2023-08-13 15:30:00 2023-08-13 15:30:00 Outpatient R MARGARITO CORONADO CHERYAL [facility] [id number] [facility] 2023-07-13 00:00:00 2023-07-13 00:00:00 Leandra Murillo [facility] 1.2.840.114 350.1.13.10 4.2.7.2.686 [id number] [facility] 2023-07-12 00:00:00 2023-07-12 00:00:00 [facility] 1.2.840.114 350.1.13.10 4.2.7.2.686 [id number] [facility] 2023-07-12 00:00:00 2023-07-12 00:00:00 [facility] 1.2.840.114 350.1.13.10 4.2.7.2.686 [id number] [facility] 2023-07-11 16:30:00 2023-07-11 16:52:09 Outpatient LOLA ESPINOZA [facility] [id number] [facility] 2023-07-11 16:30:00 2023-07-11 16:45:00 Project Lead Visit Lab, Otto HopperPatria [facility]idaNov[facility] 1..840.114 350.1.13.10 4.2.7.2.686 [id number] [facility] 2023-07-11 00:00:00 2023-07-11 00:00:00 Telephone Leandra Biggs [facility] 1.2.840.114 350.1.13.10 4.2.7.2.686 [id number] [facility] 2023-07-11 00:00:00 2023-07-11 00:00:00 Orders Only Doctor Unassigned, [place] [facility] 1.2840.114 350.1.13.10 4.2.7.2.686 [id number] [facility] 2023-07-09 13:00:00 2023-07-09 15:42:52 Outpatient R LOLA BAPTISTE [facility] [id number] [facility] 2023-07-09 13:00:00 2023-07-09 13:30:00 Office Visit Lola Baptiste [facility] 1.2.840.114 350.1.13.10 4.2.7.2.686 [id number] [facility] 2023-07-02 09:00:00 2023-07-02 09:00:00 Outpatient R LOLA BAPTISTE [facility] [id number] [facility] 2023-06-29 00:00:00 2023-06-29 00:00:00 [facility] 1.2.840.114 350.1.13.10 4.2.7.2.686 [id number] [facility] 2023-06-27 00:00:00 2023-06-27 00:00:00 Telephone Dian [facility] 1.2.840.114 350.1.13.10 4.2.7.2.686 [id number] [facility] 2023-06-27 00:00:00 2023-06-27 00:00:00 Telephone Dian [facility] 1.2.840.114 350.1.13.10 4.2.7.2.686 [id number] [facility] 2023-06-27 00:00:00 2023-06-27 00:00:00 Telephone Dian [facility] 1.2.840.114 350.1.13.10 4.2.7.2.686 [id number] [facility] 2023-06-22 06:48:53 2023-06-22 23:59:00 [id number] 2023-06-22 06:48:53 2023-06-22 23:59:00 [facility] 1.2.840.114 350.1.13.10 4.2.7.2.686 [id number] [facility] 2023-06-19 13:40:00 2023-06-19 13:40:00 [facility] [id number] [facility] 2023-06-15 18:59:00 2023-06-15 23:24:00 Emergency X MITZI MCBRIDE [facility] [id number] [facility] 2023-06-15 18:59:00 2023-06-15 23:24:00 Emergency Mitzi Mcbride [facility] 1.2.840.114 350.1.13.10 4.2.7.2.686 [id number] [facility] 2023-06-05 00:00:00 2023-06-05 00:00:00 [facility] [id number] 2023-06-04 00:00:00 2023-06-04 00:00:00 Telephone Dian [facility] 1.2.840.114 350.1.13.10 4.2.7.2.686 [id number] [facility] 2023-05-30 00:00:00 2023-05-30 00:00:00 Refill Dian [facility] 1.2.840.114 350.1.13.10 4.2.7.2.686 [id number] [facility] 2023-05-11 00:00:00 2023-05-11 00:00:00 [facility] 1.2.840.114 350.1.13.10 4.2.7.2.686 [id number] [facility] 2023-05-07 14:20:00 2023-05-07 14:40:00 [facility] 1.2.840.114 350.1.13.10 4.2.7.2.686 [id number] [facility] 2023-05-07 14:20:00 2023-05-07 14:20:00 Outpatient R DIAN [facility] [id number] [facility] 2023-05-01 00:00:00 2023-05-01 00:00:00 Patient Secure Msg Dian [facility] 1.2.840.114 350.1.13.10 4.2.7.2.686 [id number] [facility] 2023-04-27 00:00:00 2023-04-27 00:00:00 [facility] 1.2.840.114 350.1.13.10 4.2.7.2.686 [id number] [facility] 2023-04-20 00:00:00 2023-04-20 00:00:00 [facility] 1.2.840.114 350.1.13.10 4.2.7.2.686 [id number] [facility] 2023-04-20 00:00:00 2023-04-20 00:00:00 Orders Only Doctor Unassigned, [place] [facility] 1.2.840.114 350.1.13.10 4.2.7.2.686 [id number] [facility] 2023-04-13 00:00:00 2023-04-13 00:00:00 [facility] 1.2.840.114 350.1.13.10 4.2.7.2.686 [id number] [facility] 2023-04-07 00:00:00 2023-04-07 00:00:00 Orders Only Doctor Unassigned, [place] [facility] 1.2.840.114 350.1.13.10 4.2.7.2.686 [id number] [facility] 2023-04-05 00:00:00 2023-04-05 00:00:00 [facility] 1.2.840.114 350.1.13.10 4.2.7.2.686 [id number] [facility] 2023-03-30 00:00:00 2023-03-30 00:00:00 [facility] 1.2.840.114 350.1.13.10 4.2.7.2.686 [id number] [facility] 2023-03-29 15:01:56 2023-03-29 23:59:00 Outpatient R LEANDRA BIGGS [facility] [id number] [facility] 2023-03-13 00:00:00 2023-03-13 00:00:00 [facility] 1.2.840.114 350.1.13.10 4.2.7.2.686 [id number] [facility] 2023-03-09 09:40:00 2023-03-09 09:40:00 [facility] 1.2.840.114 350.1.13.10 4.2.7.2.686 [id number] [facility] 2023-03-09 09:40:00 2023-03-09 09:16:01 Outpatient LEANDRA KNIGHT [facility] [id number] [facility] 2023-03-09 00:00:00 2023-03-09 00:00:00 Orders Only Doctor Unassigned, [place] [facility] 1.2.840.114 350.1.13.10 4.2.7.2.686 [id number] [facility] 2023-03-08 13:57:51 2023-03-08 13:57:51 Outpatient [facility] [id number] Kit [place] 2023-03-01 09:56:01 2023-03-01 09:56:01 Outpatient [facility] [id number] [place] 2023-03-01 00:00:00 2023-03-01 00:00:00 Orders Only Doctor Unassigned, [place] [facility] 1.2.840.114 350.1.13.10 4.2.7.2.686 [id number] [facility] 2023-02-22 10:00:22 2023-02-22 10:00:22 Outpatient [facility] [id number] 2023-02-16 14:11:58 2023-02-16 14:11:58 Outpatient [facility] [id number] 2019-07-08 00:00:00 2019-07-08 00:00:00 Case Management Sheryl Wooten [facility] 1.2.840.114 350.1.13.10 4.2.7.2.686 [id number] [facility] 2019-07-02 15:20:19 2019-07-02 15:54:38 [facility] 1.2.840.114 350.1.13.10 4.2.7.2.686 [id number] [facility] Results Test Description Test Time Test Comments Results Result Co mments Source [id number] 02:33:33* Test Item Value Reference Range Interpretation Comme nts TROPONIN I (test code = 3629868833) <=0.034 MIRACLE (test code = MIRACLE) Reference [...] of biotin. Lab Interpretation (test code = 08097-2) Normal [facility] [id number] 02:33:12* Test Item Value Reference Range Interpretation Comme nts WBC (test code = 6690-2) 5.61 See_Comment [Automated Last [employer]] The system which generated this result transmitted reference range: 4.30 - 11.10 10*3/?L. The reference range was not used to interpret this result as normal/abnormal. RBC (test code = 789-8) 4.17 See_Comment [Automated Last [employer]] The system which generated this result transmitted [...] 33.3 g/dL 31.6-35.1 RDW-SD (test code = 93641-0) 51.8 fL 39.0-49.9 H RDW-CV (test code = 788-0) 15.6 % 12.0-15.5 H PLT (test code = 777-3) 209 See_Comment [Automated messa ge] The system which generated this result transmitted reference range: 166 - 358 10*3/?L. The reference range was not used to interpret this result as normal/abnormal. MPV (test code = 47834-6) 11.8 fL 9.5-12.9 NRBC/100 WBC (test code = 0684115464) 0.0 See_Comment [Automated Waps.cn ssage] The system which generated this result transmitted reference range: 0.0 - 10.0 /100 WBCs. The reference range was not used to interpret this result as normal/abnormal. NRBC x10^3 (test code = 9682761828) See_Comment [Automated Last Guidea ge] The system which generated this result transmitted reference range: 10*3/?L. The reference range was not used to interpret this result as normal/abnormal. GRAN MAT (NEUT) % (test code = 770-8) 49.0 % IMM GRAN % (test code = 0348855967) 0.20 % LYMPH % (test code = 736-9) 38.3 % MONO % (test code = 5905-5) 10.5 % EOS % (test code = 713-8) 0.9 % BASO % (test code = 706-2) 1.1 % GRAN MAT x10^3(ANC) (test code = 2698887609) 2.75 10*3/uL 1.88-7.09 IMM GRAN x10^3 (test code = 9562178216) 0.00-0.06 LYMPH x10^3 (test code = 731-0) 2.15 10*3/uL 1.32-3.29 MONO x10^3 (test code = 742-7) 0.59 10*3/uL 0.33-0.92 EOS x10^3 (test code = 711-2) 0.05 10*3/uL 0.03-0.39 BASO x10^3 (test code = 704-7) 0.06 10*3/uL 0.01-0.07 Lab Interpretation (test code = 63427-0) [id number] 02:31:11* Test Item Value Reference Range Interpretation Comme nts NT-proBNP (test code = 66904-9) 41 pg/mL <=125 Lab Interpretation (test cod e = 24340-7) [facility] (99379)2023-06-16 02:22:09* Test Item Value Reference Range Interpretation Comme nts NA (test code = 6845060103) 140 mmol/L 135-145 K (test code = 7793025084) 4.7 mmol/L 3.5-5.0 CL (test code = 1116012502) 108 mmol/L 98-108 CO2 TOTAL (test code = 8962287075) 24 mmol/L 23-31 AGAP (test code = 8598825304) 8 2-16 BUN (test code = 7842307406) 11 mg/dL 7-23 GLUCOSE (test code = 4774944195) 70 mg/dL 70-110 CREATININE (test code = 0108213098) 0.65 mg/dL 0.50-1.04 TOTAL BILI (test code = 1467283332) 0.2 mg/dL 0.1-1.1 CALCIUM (test code = 8340474989) 8.8 mg/dL 8.6-10.6 T PROTEIN (test code = 7522502098) 7.3 g/dL 6.3-8.2 ALBUMIN (test code = 3517490045) 4.2 g/dL 3.5-5.0 ALK PHOS (test code = 8349545928) 49 U/L 34-122 ALTv (test code = 1742-6) 60 U/L 5-35 H AST(SGOT) (test code = 3758813995) 43 U/L 13-40 H eGFR (test code = 5158392196) 103.1 mL/min/1.73m2 MIRACLE (test code = MIRACLE) [...] imaging tests). Lab Interpretation (test code = 90100-1) [facility]normal [facility] [id number] 01:31:00* Test Item Value Reference Range Interpretation Comme nts POCT PREG (test code = 1605) Negative On board controls acceptable with C Line (test code = 3574) Yes POCT PREG LOT # (test code = 3575) 146309 POCT PREG TEST DATE ( test code = 3576) Lab Interpretation (test cod e = 31657-5) Normal [facility],FECAL,IMMUNOASSAY [id number] 11:20:54* Test Item Value Reference Range Interpretation Comme nts OCCULT BLD, FECAL (test code = 22409) NEGATIVE NEGATIVE UNLESS OTHER PERRY INDICATED, ALL TESTING PERFORMED AT [facility] [address] [place] [address] [employer] ASSEMBLER: KATELYN GOMEZ M.D. [place] NUMBER [id number] [facility] [place]. [id number] PATHOLOGIST SMEAR [id number] 13:20:44* Test Item Value Reference Range Interpretation [...] seen. Platelets are borderline increased in number. (;03/02/23) PATHOLOGIST: (test code = 8250) (NOTE) Katelyn Gomez M.D. (electronically signed) Diplomate, [place] [employer] with Subspecialty Certification, Hematology CPT: (test code = 8400) 75514 WBC (test code = 1001) 4.1 K/UL [...] 0.00-0.10 ABS NUCLEATED RBCS (test code = 46555) 0.00 K/UL 0.00-0.11 COMMENTS (test code = 1016) (NOTE) MARKED ANISOCYTO SIS FEW ELLIPTOCYTES MODERATE HYPOCHROMASIA SLIGHT MICROCYTOSIS SLIGHT POIKILOCYTOSIS SLIGHT POLYCHROMASIA FEW TEAR DROP CELLS PLATELETS APPEAR INCREASED UNLESS OTHERWISE INDICATED, ALL TESTING PERFORMED AT [facility] [address] [place] [address] [employer]I ASSEMBLER: KATELYN GOMEZ M.D. CLIA NUMBER [id number] [facility] [place]. [id number] HAPTOGLOBIN, [id number] 13:10:19* Test Item Value Reference Range Interpretation Comme nts HAPTOGLOBIN, QUANT (test cod e = 46296) 78 MG/DL 32-197 [id number] 07:59:28* Test Item Value Reference Range Interpretation Comme nts LDH (test code = 2224) 178 U/L 135-214 CBC W/AUTO DIFF WITH [id number] 23:14:06* Test Item Value Reference Range Interpretation [...] 0.00-0.10 ABS NUCLEATED RBCS (test code = 28450) 0.00 K/UL 0.00-0.11 COMMENTS (test code = 1016) (NOTE) MODERATE ANISOCY TOSIS MARKED HYPOCHROMASIA SLIGHT MICROCYTOSIS SLIGHT POLYCHROMASIA FEW SCHISTOCYTES PLATELETS APPEAR INCREASED RETICULOCYTE WITH [id number] 23:14:06* Test Item Value Reference Range Interpretation Comme nts RETICULOCYTE COUNT (test cod e = 1018) 3.68 % 0.80-2.40 H ABSOLUTE RETICULOCYTE (test code = 46448) 131.0 K/UL 32.0-105.0 H [id number] 04:46:23* Test Item Value Reference Range Interpretation Comme nts FERRITIN (test code = 2075) 114 NG/ML 13-200 VITAMIN B 12 AND FOLIC [id number] 04:46:23* Test Item Value Reference Range Interpretation [...] IRON BINDING CAPACITY AND IRON AND % [id number] 23:59:13* Test Item Value Reference Range Interpretation Comme nts IRON, SERUM (test code = 2222) 25 UG/DL 37-145 L UNSATURATED IBC (test code = 12801) 445 UG/DL 112-347 H CALC TOTAL IBC (test code = 2077) 470 UG/DL 250-450 H CALC % IRON SAT (test code = 2079) 5 % 20-50 L [id number] 23:58:52* Test Item Value Reference Range Interpretation Comme nts TRANSFERRIN (test code = 4936) 377 MG/DL 200-360 H [id number] 23:58:52* Test Item Value Reference Range Interpretation Comme nts HOMOCYSTEINE (test code = 4288) 15 UMOL/L <12 H UNLESS OTHERWISE INDICATED, ALL TESTING PERFORMED AT [facility] [address] [place] [address] [employer] ASSEM[employer]ER: KATELYN GOMEZ M.D. CLIA NUMBER [id number] [facility] [place]. [id number] MICROSCOPIC [id number] 04:53:02* Test Item Value Reference Range Interpretation Comme nts WHITE BLOOD CELLS (test code = 1513) 0-5 /HPF 0-5 RED BLOOD CELLS (test code = 1514) 0-2 /HPF 0-2 PLEASE NOTE: NEW REFERENCE RANGE EFFECTIVE 23. EPITHELIAL CELLS (test code = 17854) 6-10 /HPF 0-10 BACTERIA (test code = 1515) >3+ NONE SEEN CRYSTALS (test code = 1516) PRESENT NONE SEEN A CALCIUM OXALATE CRYSTALS CASTS, HYALINE (test code = 1517) TRACE NONE-TRACE CBC W/AUTO DIFF WITH [id number] 15:50:45* Test Item Value Reference Range Interpretation [...] 0.00-0.10 ABS NUCLEATED RBCS (test code = 01374) 0.00 K/UL 0.00-0.11 COMMENTS (test code = 1016) (NOTE) MODERATE ANISOCY TOSIS MODERATE HYPOCHROMASIA MODERATE MICROCYTOSIS PLATELETS APPEAR NORMAL TSH, THIRD [id number] 10:17:10* Test Item Value Reference Range Interpretation Comme nts TSH, THIRD GENERATION (test code = 2821) 4.160 UIU/ML 0.400-4.100 H [id number] 08:48:32* Test Item Value Reference Range Interpretation Comme nts NT-proBNP (test code = 44467) <50 PG/ML SEE BELOW If NT-ProBNP is less than 300 PG/ML, heart failure is unlikely for allages. Age.................Heart Failure Likely <50 Years...........>=450 PG/ML 50-75 Years.........>=900 PG/ML > 75 Years..........>=1800 PG/ML Methodology: Rosmery Anais Electrochemiluminescense Immunoassay [facility] has important pathology staff changes effective 12/20/2022. New pathology staff will provide uninterrupted, excellent patient care and clinical consultation. See URL: [email or web address]. UNLESS OTHERWISE INDICATED, ALL TESTING PERFORMED AT [facility] [address] [place] [address] [employer] ASSEMBLER: KATELYN GOMEZ M.D. CLIA NUMBER [id number] [facility] [place]. [id number] COMPREHENSIVE METABOLIC [id number] 06:00:01* Test Item Value Reference Range Interpretation Comme nts GLUCOSE (test code = 2216) 85 MG/DL 70-99 BUN (test code = 2207) 7 MG/DL 6-20 CREATININE (test code = 2213) 0.71 MG/DL 0.60-1.30 eGFR (2020 CKD-EPI) (test code = ) 113 ML/MIN/1.73 >60 CALC BUN/CREAT (test code = 2234) 10 RATIO 6-28 SODIUM (test code = 2230) 141 MEQ/L 133-146 POTASSIUM (test code = 2227) 4.2 MEQ/L 3.5-5.4 CHLORIDE (test code = 2214) 106 MEQ/L 95-107 CARBON DIOXIDE (test code = 2205) 24 MEQ/L 19-31 CALCIUM (test code = 2208) 9.2 MG/DL 8.5-10.5 PROTEIN, TOTAL (test code = 2228) 7.4 G/DL 6.1-8.3 ALBUMIN (test code = 2200) 4.2 G/DL 3.5-5.2 CALC GLOBULIN (test code = 2240) 3.2 G/DL 1.9-3.7 CALC A/G RATIO (test code = 2233) 1.3 RATIO 1.0-2.6 BILIRUBIN, TOTAL (test code = 2206) 0.2 MG/DL See_Comment [Automated me ssage] The system which generated this result transmitted reference range: <=1.2. The reference range was not used to interpret this result as normal/abnormal. ALKALINE PHOSPHATASE (test code = 2203) 53 U/L 40-112 AST (test code = 8) 32 U/L 9-40 ALT (test code = 2219) 31 U/L 5-40 LIPID [id number] 06:00:01* Test Item Value Reference Range Interpretation Comme nts CHOLESTEROL (test code = 2210) 128 MG/DL <200 TRIGLYCERIDES (test code = 2232) 66 MG/DL <150 HDL CHOLESTEROL (test code = 2220) 62 MG/DL >39 CALC LDL CHOL (test code = 223) 51 MG/DL <100 NOTE: CALCULATED LDL IS BASED ON MARIPOSA-IYER METHOD WHICHINCLUDES ADJUSTABLE TRIGLYCERIDE:VLDL CHOLESTEROL RATIO.THIS FACTOR VARIES BY MEASURED TRIGLYCERIDE AND NON-HDLCHOLESTEROL CONCENTRATIONS WITH INCREASED CALCULATED LDL SEENIN HIGHER TRIGLYCERIDE OR LOWER NON-HDL SPECIMENS. FOR MOREINFORMATION, SEE CLIENT ANNOUNCEMENT AT [email or web address] RISK RATIO LDL/HDL (test code = 2238) 0.82 RATIO <3.22 HEMOGLOBIN [id number] 05:05:23* Test Item Value Reference Range Interpretation Comme nts HEMOGLOBIN A1c (test code = 48357) 5.3 % 4.2-5.6 History and Physical Notes Date/Time Note Provider Source 2023-06-22 07:00:00 Formatting of this n ote might be different from the original. [facility] Echocardiography Lab Out-Patient Transesophageal Echo-Cardiogram IDENTIFYING DATA Patient name: Cooper Morton 37 year old female Primary care physician: PATIENT DOES NOT HAVE A PCP Current History: Ms. Morton has no past medical history of [...] on file. Prior surgeries at outside hospitals: none She has No Known Allergies. She reports that she has never smoked. She has never used smokeless tobacco. She reports that she does not currently use alcohol. She reports no history of drug use. Current Medications: Ms. Morton @CMEDP@ Checklist: + Dysphagia, + Esophageal diverticula, + Esophageal varices , + Hx of recent GI Bleed, + Oropharyngeal , + Previous mediastinal or neck surgery/irradiation, and + Previous JAYNA under deep sedation Informed Consent: Did the patient agree to procedure?: Yes Is the patient DNR or DNI?: No. Sedation, Anesthesia and Analgesia: Are ASA and Mallampati Class documented? Yes Is there any contraindication to sedation present? No HOME MEDICATIONS (Not in a hospital admission) Last taken: not applicable PHYSICAL EXAM General: alert, oriented times three, no apparent distress HEENT: PERRLA Neck: negative Heme: neg Jaw: neg Lung: clear to auscultation bilaterally ABD: abdomen is soft without significant tenderness, masses, organomegaly or guarding Extremities: peripheral pulses normal, no pedal edema, no clubbing or cyanosis neg Risk/Benefits of procedure explained to patient and family, verbalized understanding and informed consent obtained. The sedation pre-assessment was discussed and I concurred with the plan for sedation or anesthesia as captured in the flowsheet pre-assessment rows by the nurse. Time out performed. T [facility] Notes Date/Time Note Provider Source 2024-05-03 13:50:23 [facility]2023-09-07 10:55:44 Patient notified T [facility]ellanos [facility]gld[facility]97[facility] 10:45:48 Letter in EPIC [facility]2023-09-07 10:31:30 Discussed disability with patient, she stated that since everything with her JAYNA came back good shedoes not have a disability. She would like to RTW on 07/03/[address] Biggs Belkis Wilder [facility]Wdrvvk8789-41-60 10:19:20 Yesterday we received a disability request. Please verify with the patient what her game plan is. If she is returning to work, what should I say in the disability form? Please describe her degree of disability and duration of disability. [facility]ojkpp8116-71-14 14:40:48 Patient is requesting a return to work note dated July 02, 2023. Please send via 9Flava. Desirae MoraKindred Hospital DaytonAbeyex9587-69-15 12:53:46 Supplementary Report of Disability Request received via fax from [facility] and placed in Dr Biggs's folder to be reviewed and signed. Shonda Andrade [place] 124683-09-06 09:07:08 Cooper Morton is a 37 year old female Christine calling from [facility] She is wanting to confirm procedures Please call her [phone] Livia GonsalezAlexandra Ville 124683-09-01 11:51:15 Spoke with patient , She was able to speak with Colette Swift, all is taken care of Belkis Wilder RNKindred Hospital DaytonFdlyky2390-66-98 23:23:42 Pt given printed and verbal discharge instructions regarding anxiety about health, arm numbness, elevated liver enzymes, encouraged hydration, 0 Prescriptions provided Pt verbalized understanding of instructions, pt awake alert oriented, resp reg unlabored, skin w/d,color appropriate for race, moves all ext well,pt encouraged to follow up with pcp Advised to seek medical attention for new/prolonged/worsening of symptoms, Symptoms improved. PIV d'cd, dressing to site, catheter in tact. Awake, alert oriented, resp reg unlabored, skin w/d, pt leaving amb with steady gait, in no apparent distress, Rebekah Mcqueen [facility]Jbmsuf8314-41-87 18:56:25 Pt states her left arm feels numb and tingling, denies any other symptoms, ambulatory to triage anddrove herself to ED. Patient states she has hx of TIA. Clif Mittal [facility]Kiebpn0507-99-01 15:57:49 Cooper Morton is a 37 year old female Patient is calling and wanting to speak with Colette Swift and wouldn't state what it was regarding. Please assist [phone] [place] AndradeKindred Hospital DaytonJppgto8079-46-17 17:09:41 Cooper Morton is a 37 year old femalea pt. Calling stating that she has been speaking to Colette Swift and needs a call back please advise. Thank you Shyanne De La Rosa [facility]lg[facility]53[facility]67-[facility] 09:51:33 NACHO 05/07/23 NOV 06/19/23 " Dizziness and orthostatic hypotension-likely autonomic dysfunction since TIA event. Advised to increase water intake, avoid caffeine intake, and compression stockings. Fall precautions. Since therehas been no improvement, we will start midodrine 2.5 mg 3 times daily. Advised to check blood pressure daily for further adjustment. Discussed the nature of this condition. EKG--March 09, 2023-reviewed by me and discussed with patient NSR, low voltage" Adilene Castellanos [facility]Gerkgx6081-78-03 16:17:58 Received medical records request from [facility], will send to [facility] medical records for them to execute. Reach out to [facility] for any updates. Olive Gee [facility]
[2024-07-29 15:33] LABS: Absolute Basophils 0.1 K/uL (0-0.5); Absolute Lymphocytes (CBC) 1.3 K/uL (0.7-4.9); Absolute Monocytes 0.8 K/uL (0.1-1.3); Absolute Neutrophil 3.6 K/uL (1.8-8.0); Basophils % 1.3 % (0-1.3); Eosinophils % 0.4 % (0-4.4); Hematocrit 26.4 % (36.0-45.0); Hemoglobin 7.8 g/dL (12.0-15.0); Lymphocytes % 22.7 % (15.3-44.8); MCH 20.8 pg (27.0-35.0); MCHC 29.7 g/dL (32.0-36.0); MPV 7.1 fL (7.6-11.3); Monocytes % 13.2 % (3.3-12.3); Neutrophils % 62.4 % (41.7-73.7); Platelets 519 thou/uL (152-406); RBC Red Blood Cell Count 3.76 M/uL (3.86-4.86); Red Cell Distribution Width 21.5 % (12.1-15.2)
[2024-07-29] MEDS ORDERED: NA CHLORIDE 0.9% 1,000 ML ONE (15:37)
[2024-07-29] MEDS ORDERED: MORPHINE 4 MG/ML SYR ONE (15:37)
[2024-07-29] MEDS ORDERED: ONDANSETRON 4 MG/2 ML VIAL ONE (15:37)
[2024-07-29 15:52] LABS: Albumin 3.5 g/dL (3.4-5.0); Albumin/Globulin Ratio 0.9 (1.1-1.8); Anion Gap 9.9 mEq/L (5.0-15.0); Bilirubin Total 0.4 mg/dL (0.2-1.0); Globulin 3.8 g/dL (2.3-3.5); Potassium 3.9 mEq/L (3.5-5.1); Protein, Total 7.3 g/dL (6.4-8.2)
[2024-07-29 15:54] LABS: Specific Gravity 1.024 (1.005-1.030)
[2024-07-29 15:55] LABS: Specific Gravity 1.024 (1.005-1.030); Sqamous Epithelial <5 /HPF (None Seen); Urine Bacteria <20 /HPF (<20); Urine Bilirubin NEGATIVE (Negative); Urine Blood Negative (Negative); Urine Clarity Turbid (Clear); Urine Color Light-Yellow (Yellow); Urine Crystals Unidentified Few /HPF (None Seen); Urine Culture Reflex Order NOT NEEDED; Urine Glucose NEGATIVE (Negative); Urine Ketones NEGATIVE (Negative); Urine Microscopic Reflex YN ORDER UMIC; Urine Mucus Slight /HPF (None Seen); Urine Nitrite NEGATIVE (Negative); Urine Protein NEGATIVE (Negative); Urine RBC <5 /HPF (None Seen); Urine Urobilinogen Normal (Normal); Urine WBC <5 /HPF (<5); Urine Yeast (Budding) Moderate /HPF (None Seen); Urine pH 6.5 (5.0-7.0)
[2024-07-29 16:09] LABS: Blood Morphology Comment NOTED (NOT SEEN); Platelet Estimate INCR; White Blood Cell Scan OK (OK)
[2024-07-29 16:10] LABS: Anisocytosis 1+; Hypochromasia 1+
--- NOTE | 2024-07-29 17:46 | RAD REPORT ---
EXAMINATION: CT Abdomen Pelvis W Contrast CLINICAL INDICATION: Female, 38 years old. ABD PAIN TECHNIQUE: CT abdomen and pelvis was performed, after the administration of IV contrast, as per [facility]. Axial, sagittal and coronal reconstructions were obtained. One or more of the following dose reduction techniques were used: Automated exposure control, adjustment of the mA and k V according to patient size, and iterative reconstruction. Unless otherwise specified, incidental findings do not require dedicated imaging follow-up. COMPARISON: CT abdomen pelvis 02/25/2021 FINDINGS: LOWER CHEST: The visualized lung bases are clear. LIVER: Normal in size and contour. No focal lesion. BILIARY SYSTEM: No suspicious abnormalities. SPLEEN: Normal size. No focal lesion. PANCREAS: No mass, ductal dilation, or eusebio-pancreatic fluid. ADRENALS: Normal; no mass. KIDNEYS: Normal size and contour. No hydronephrosis. URINARY BLADDER: Unremarkable. GASTROINTESTINAL TRACT: Sequelae of gastric bypass. Nonspecific fluid filling of short segments of sm all bowel in the left hemiabdomen, without significant distention. No evidence of free air, significant intra-abdominal free fluid, bowel obstruction or abscess. APPENDIX: Normal appendix. LYMPH NODES: No lymphadenopathy. MUSCULOSKELETAL: No acute or suspicious osseous abnormality. ADDITIONAL FINDINGS: Nonspecific small amount of fluid within the endometrial cavity. IMPRESSION: Nonspecific fluid filling within short segments of nondistended small bowel in the left hemiabdomen, may relate to mild enteritis or diarrheal state. No other acute or concerning abnormalities seen in the abdomen or pelvis.
--- NOTE | 2024-07-29 17:57 | EDPHYS ---
Physician Documentation [facility] Name: Larry Morton Age: 38 yrs Sex: Female : 1985 Arrival Date: 07/29/2024 Time: 14:45 Bed 8 Private MD: ED Physician Unique Vargas HPI: 07/29 18:01 This 38 yrs old Black Female presents to ER via Ambulatory with complaints of Abdominal kb Pain. 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 States pain is aggravated by taking a deep breath and palpation. Denies vomiting, diarrhea, fever. . Historical: - Allergies: 14:55 No Known Allergies; hb - Home Meds: 14:54 midodrine oral [Active]; atorvastatin oral [Active]; Aspirin Oral [Active]; hb - PMHx: 14:54 Anemia; CVA; hypotension; High Cholesterol; hb - PSHx: 14:54 section; Gastric Bypass; hb - Immunization history:: Adult Immunizations up to date. - Infectious Disease History:: Denies. - Social history:: Smoking status: Patient denies any tobacco usage or history of. ROS: 15:03 Constitutional: As per HPI kb Exam: 17:52 Constitutional: This is a well developed, well nourished patient who is awake, alert, kb and in no acute distress. Head/Face: Normocephalic, atraumatic. ENT: Moist Mucous membranes Cardiovascular: Regular rate Respiratory: Respirations even and unlabored. No increased work of breathing. Talking in full sentences Skin: Warm, dry with normal turgor. Normal color. MS/ Extremity: Pulses equal, no cyanosis. Neurovascular intact. Full, normal range of motion. Neuro: Awake and alert, GCS 15, oriented to person, place, time, and situation. Moves all extremities. Normal gait. 17:52 Abdomen/GI: Inspection: abdomen appears normal, Bowel sounds: normal, Palpation: soft, in all quadrants, moderate abdominal tenderness, in all quadrants, Vital Signs: 14:53 BP 133 / 84; Pulse 104; Resp 18; Temp 98.8(TE); Pulse Ox 100% on R/A; Weight 78.93 kg; hb Height 5 ft. 5 in. ; Pain 10/10; 15:25 BP 121 / 74; Pulse 68; Resp 16; Pulse Ox 100% on R/A; ss 14:53 Body Mass Index 28.95 (78.93 kg, 165.1 cm) hb 14:53 Pain Scale: Adult hb MDM: 14:47 Patient medically screened. kb 18:01 Differential diagnosis: gastritis, non-specific abd pain, gastroenteritis. Data kb reviewed: vital signs, nurses notes. Counseling: I had a detailed discussion with the patient and/or guardian regarding the historical points, exam findings, and any diagnostic results supporting the discharge/admit diagnosis, lab results, radiology results, the need for outpatient follow up, a family practitioner, to return to the emergency department if symptoms worsen or persist or if there are any questions or concerns that arise at home. 07/29 15:14 Order name: CBC with Diff; Complete Time: 16:14 kb 07/29 15:14 Order name: CMP; Complete Time: 15:53 kb 07/29 15:14 Order name: Lipase; Complete Time: 15:53 kb 07/29 15:14 Order name: Test, Urine; Complete Time: 15:57 kb 07/29 15:14 Order name: Urinalysis w/ reflexes; Complete Time: 15:57 kb 07/29 15:37 Order name: CBC Smear Scan; Complete Time: 16:14 EDMS 07/29 15:14 Order name: CT Abd/Pelvis - IV Contrast Only; Complete Time: 17:49 kb 07/29 15:14 Order name: IV Saline Lock; Complete Time: 15:44 kb 07/29 15:14 Order name: Labs collected and sent; Complete Time: 15:44 kb Administered Medications: 15:40 Drug: NS 0.9% IV 1000 ml IV at 1 bolus Per protocol; 1000 mL bolus Route: IV; Rate: 1 ss bolus; Site: right antecubital; 17:30 Follow up: IV Status: Completed infusion; IV Intake: 1000ml ss 15:41 Drug: Ondansetron IVP 4 mg IVP once; over 2 minutes Route: IVP; Site: right antecubital;ss 16:00 Follow up: Response: No adverse reaction; Nausea is decreased ss 15:44 Drug: morphine IVP or IV 4 mg IVP once over 4 mins Route: IVP; Infused Over: 4 mins; ss Site: right antecubital; 18:11 Follow up: Response: No adverse reaction; Pain is decreased; RASS: Alert and Calm (0) ss Disposition Summary: 07/29/24 17:56 Discharge Ordered Notes: Location: Home kb Condition: Stable kb Diagnosis - Anemia, unspecified kb - Other viral enteritis kb Followup: kb - With: Emergency Department - When: As needed - Reason: Worsening of condition Followup: kb - With: Private Physician - When: 2 - 3 days - Reason: Recheck today's complaints, Continuance of care, Re-evaluation by your physician Discharge Instructions: - Discharge Summary Sheet kb - Viral Gastroenteritis, Adult, Jigq-vd-Pujq kb - Iron Deficiency Anemia, Adult, Kudm-aa-Wtmn kb Forms: - Medication Reconciliation Form kb - Antibiotic Education kb - Prescription Opioid Use kb - Patient Portal Instructions kb - Leadership Thank You Letter kb Prescriptions: - dicyclomine 20 mg Oral tablet - take 1 tablet ORAL route 4 times per day As needed; 20 tablet; Refills: 0, kb Product Selection Permitted Signatures: Dispatcher [employer] Marcia Bellamy, DIRECTOR OF PROGRAM MANAGEMENT-C DIRECTOR OF PROGRAM MANAGEMENT-Bianca England, RN RN Gale Meléndez, RN RN hb
--- NOTE | 2024-07-29 17:57 | ER ---
Nurse's Notes [facility] Name: Larry Morton Age: 38 yrs Sex: Female : 1985 Arrival Date: 07/29/2024 Time: 14:45 Bed 8 Private MD: Diagnosis: Anemia, unspecified;Other viral enteritis Presentation: 07/29 14:53 Chief complaint: Sudden severe abdominal pain x 1 hour. Coronavirus screen: At this hb time, the client does not indicate any symptoms associated with coronavirus-19. Ebola Screen: No symptoms or risks identified at this time. Initial Sepsis Screen: Does the patient meet any 2 criteria? No. Patient's initial sepsis screen is negative. Does the patient have a suspected source of infection? No. Patient's initial sepsis screen is negative. Risk Assessment: Do you want to hurt yourself or someone else? Patient reports no desire to harm self or others. Onset of symptoms was July 29, 2024. 14:53 Method Of Arrival: Ambulatory hb 14:53 Acuity: CELESTINO 3 hb Historical: - Allergies: 14:55 No Known Allergies; hb - Home Meds: 14:54 midodrine oral [Active]; atorvastatin oral [Active]; Aspirin Oral [Active]; hb - PMHx: 14:54 Anemia; CVA; hypotension; High Cholesterol; hb - PSHx: 14:54 section; Gastric Bypass; hb - Immunization history:: Adult Immunizations up to date. - Infectious Disease History:: Denies. - Social history:: Smoking status: Patient denies any tobacco usage or history of. Screenin:25 Abuse screen: Denies threats or abuse. Denies injuries from another. Nutritional ss screening: No deficits noted. Tuberculosis screening: Never had TB. Assessment: 15:25 General: Appears uncomfortable, Behavior is calm, cooperative, Denies fever. Pain: ss Complains of pain in abdomen Pain currently is 10 out of 10 on a pain scale. Pain began 1 hour ago. Is continuous. Neuro: Level of Consciousness is awake, alert, obeys commands, Oriented to person, place, time, situation. Respiratory: Airway is patent Respiratory effort is even, unlabored, Respiratory pattern is regular, symmetrical. GI: Abdomen is flat, non-distended, Reports nausea, Patient currently denies diarrhea, vomiting. : No signs and/or symptoms were reported regarding the genitourinary system. Derm: Skin is pink, warm \T\ dry. normal. 16:13 Reassessment: Patient appears in no apparent distress at this time. Pt is resting at ss this time. Eyes closed. RR even and unlabored. Vital Signs: 14:53 BP 133 / 84; Pulse 104; Resp 18; Temp 98.8(TE); Pulse Ox 100% on R/A; Weight 78.93 kg; hb Height 5 ft. 5 in. ; Pain 10/10; 15:25 BP 121 / 74; Pulse 68; Resp 16; Pulse Ox 100% on R/A; ss 14:53 Body Mass Index 28.95 (78.93 kg, 165.1 cm) hb 14:53 Pain Scale: Adult hb ED Course: 14:46 Patient arrived in ED. mr 14:46 [facility] kb 14:46 Unique Vargas MD is Attending Physician. kb 14:54 Triage completed. hb 14:55 Arm band placed on. hb 15:06 Bianca Johnson, RN is Primary Nurse. ss 15:25 Patient has correct armband on for positive identification. Bed in low position. Call ss light in reach. Side rails up X 1. Warm blanket given. Verbal reassurance given. 15:27 Inserted saline lock: 22 gauge in right antecubital area, using aseptic technique. ss Blood collected. Flushed with 10 mL NS. 17:09 CT Abd/Pelvis - IV Contrast Only In Process Unspecified. EDMS 18:12 No provider procedures requiring assistance completed. IV discontinued, intact, ss bleeding controlled, No redness/swelling at site. Pressure dressing applied. Administered Medications: 15:40 Drug: NS 0.9% IV 1000 ml IV at 1 bolus Per protocol; 1000 mL bolus Route: IV; Rate: 1 ss bolus; Site: right antecubital; 17:30 Follow up: IV Status: Completed infusion; IV Intake: 1000ml ss 15:41 Drug: Ondansetron IVP 4 mg IVP once; over 2 minutes Route: IVP; Site: right antecubital;ss 16:00 Follow up: Response: No adverse reaction; Nausea is decreased ss 15:44 Drug: morphine IVP or IV 4 mg IVP once over 4 mins Route: IVP; Infused Over: 4 mins; ss Site: right antecubital; 18:11 Follow up: Response: No adverse reaction; Pain is decreased; RASS: Alert and Calm (0) ss Medication: 15:25 VIS not applicable for this client. ss Intake: 17:30 IV: 1000ml; Total: 1000ml. ss Outcome: 17:56 Discharge ordered by . anuj 18:12 Discharged to home ambulatory, ss 18:12 Condition: improved 18:12 Discharge instructions given to patient, Instructed on discharge instructions, follow up and referral plans. medication usage, Demonstrated understanding of instructions, follow-up care, medications, Prescriptions given X 1, 18:12 Patient left the ED. ss Signatures: Dispatcher [employer] EDMS Marcia King, SENIOR ELECTRICAL DESIGN ENGINEER-C SENIOR ELECTRICAL DESIGN ENGINEER-An Monae, Daniel Sanchez mr Bianca Johnson, RN RN Gale Meléndez RN RN hb
[2024-07-29 18:16] VITALS: TEMP 98.8; O2SAT 100
[2024-07-29 18:17] VITALS: BP 121/74
== END 2024-07-29 18:12 | disposition home or self-care (01) ==
LOC: ER 14:45
DX: D64.9 Anemia, unspecified (principal); A08.39 Other viral enteritis
CPT/HCPCS: 36415; 74177; 80053; 81001; 81025; 83690; 85025; 96361; 96374; 96375; 99284; J2405; J7030; Q9967

== ENCOUNTER 2024-11-02 11:53 | Emergency (ER) | payer BC ==
--- OUTSIDE RECORDS SUMMARY | 2024-11-02 11:57 | XMS REPORT | Continuity of Care Document ---
Author Name Unknown Address [address] [facility]. [address] [place] [address] [facility] thconnect Address [address] 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 Phone LOLA BAPTISTE Primary Care Physician UnavailLOLA Valladares Attending Clinician Unavailable LEANDRA BIGGS Attending Clinician Unavailable JESSICA TOBAR Attending Clinician UnavailLeandra Jang MD Attending Clinician [phone] Steve Restrepo PA-C Attending Clinician [phone] Lola Goldstein Attending Clinician [phone] Lab, Ang - Db Attending Clinician Unavailable STEVE RESTREPO Attending Clinician Unavailable Myke Whitehead MD Attending Clinician [phone] Leandra Biggs MD Attending Clinician [phone] NI CASSIDY Attending Clinician NI Bynum Attending Clinician MARGARITO Ye Attending Clinician UnavailMARGARITO Hill Attending Clinician UnavailLola Peterson Attending Clinician [phone] Lab, Ang - Db Attending Clinician Unavailable Doctor Unassigned, [place] Attending Clinician U howieailMITZI Wolfe Attending Clinician Unavailable Mitzi Mcbride MD Attending Clinician [phone] Sheryl Wooten PA-C Attending Clinician [phone] MITZI MCBRIDE Admitting Clinician Unavailable Payers Payer Name Policy Type Policy Number Effective Date Expirati on Date Source [facility] [id number] 2024 00:00:00 [facility] GENERIC [id number] 2022 00:00:00 2022-10 00:00:00 Problems Condition Name Condition Details Condition Category Status Onset Date Resolution Date Last Treatment Date Treating Clinician Comments Source Vitamin D deficiency Vitamin D deficiency Disease Active 07-09 00:00: 00 [facility] Obesity (BMI 30.0-34.9) Obesity (BMI 30.0-34.9) Disease Active 07-09 00:00: 00 [facility] Status post gastric bypass for obesity Status post gastric bypass for obesity Disease Active 07-09 00:00: 00 [facility] NSVT (nonsustai faith ventricula r tachycardi a) NSVT (nonsustai faith ventricula r tachycardi a) Disease Active 05-07 00:00: 00 [facility] PFO (patent foramen ovale) PFO (patent foramen ovale) Disease Active 05-07 00:00: 00 [facility] Obesity due to excess calories, unspecifie d classifica tion, unspecifie d whether serious comorbidit y present Obesity due to excess calories, unspecifie d classifica tion, unspecifie d whether serious comorbidit y present Disease Active 03-09 00:00: 00 [facility] Obesity due to excess calories, unspecifie d classifica tion, unspecifie d whether serious comorbidit y present Obesity due to excess calories, unspecifie d classifica tion, unspecifie d whether serious comorbidit y present Disease Active 03-09 00:00: 00 [facility] Orthostati c hypotensio n Orthostati c hypotensio n Disease Active 03-09 00:00: 00 [facility] Obesity (BMI 30-39.9) Obesity (BMI 30-39.9) Disease Active 03-09 00:00: 00 [facility] History of transient ischemic attack (TIA) History of transient ischemic attack (TIA) Disease Active 03-09 00:00: 00 [facility] Dizziness and giddiness Dizziness and giddiness Disease Active 03-09 00:00: 00 [facility] Sinus bradycardi a Sinus bradycardi a Disease Active 03-09 00:00: 00 [facility] Allergies, Adverse Reactions, Alerts Allergy Name Allergy Type Status Severity Reaction(s) Onset Date Inactive Date Treating Clinician Comments Source NO KNOWN ALLERGIE S Drug Class Active [facility] Social History Social Habit Start Date Stop Date Quantity Comments Source Gender identity 2024-01-12 09:02:59 Identifies as [facility] History SDOH Alcohol Std Drinks [facility] History SDOH Alcohol Binge [facility] Alcoholic beverage intake 2024-10-03 00:00:00 2024-10-03 00:00:00 Ex-drinker (finding) [facility] Alcohol intake 2023-07-09 00:00:00 2023-07-09 00:00:00 Ex-drinker (finding) [facility] Tobacco use and exposure 2023-05-07 00:00:00 2023-05-07 00:00:00 Smokeless tobacco non-user [facility] History of Social function 2023-04-10 00:00:00 2023-04-10 00:00:00 [facility] Exposure to SARS-CoV-2 (event) 2023-02-27 00:00:00 2023-03-09 08:25:00 Not sure [facility] History SDOH Alcohol Frequency 2019-07-02 00:00:00 2019-07-02 00:00:00 1 [facility] Sex assigned at 1985 00:00:00 1985 00:00:00 [facility] Smoking Status Start Date Stop Date Source Never smoked tobacco [facility] Medications Ordered Medication Name Filled Medication Name Start Date Stop Date Current Medication? Ordering Clinician Indication Dosage Frequency Signature (SIG) Comments Components Source midodrine 2.5 mg tablet 2023-10 2-31 00:00: 00 11-06 05:59 :00 Yes [id number] 2.5mg Take 1 tablet by mouth in the morning and 1 tablet at noon and 1 tablet in the evening. Do all this for 15 days. [facility] ferrous sulfate 325 mg (65 mg iron) EC tablet 2023-10 2- 00:00: 00 Yes [id number] 325mg Take 1 tablet by mouth in the morning and 1 tablet at noon and 1 tablet in the evening. Take with meals. [facility] ferrous sulfate 325 mg (65 mg iron) EC tablet 2023-10 2 00:00: 00 10-13 00:00 :00 No [id number] 325mg Take 1 tablet by mouth in the morning and 1 tablet at noon and 1 tablet in the evening. Take with meals. [facility] atorvastati n (Lipitor) 40 MG tablet atorvastati n (Lipitor) 40 MG tablet 7 00:00: 00 Yes 40mg TAKE 1 TABLET BY MOUTH EVERYDAY AT BEDTIME Samanta Mckeon [facility] midodrine 2.5 mg tablet 5-20 00:00: 00 10-13 00:00 :00 No [id number] 2.5mg Take 1 tablet by mouth in the morning and 1 tablet at noon and 1 tablet in the evening. [facility] midodrine 2.5 mg tablet 07-13 00:00: 00 03-10 00:00 :00 No [id number] 2.5mg Take 1 tablet by mouth in the morning and 1 tablet at noon and 1 tablet in the evening. [facility] ferrous sulfate (IRON) 325 mg (65 mg iron) tablet 07-09 13:10: 09 07-09 00:00 :00 No 325mg Take 1 tablet by mouth in the morning and 1 tablet at noon and 1 tablet in the evening. Take with meals. [facility] foLIC acid 1 mg tablet 07-09 13:09: 20 Yes 1mg Take 1 tablet by mouth in the morning. [facility] midodrine 2.5 mg tablet 06-29 00:00: 00 07-13 00:00 :00 No [id number] 2.5mg Take 1 tablet by mouth in the morning and 1 tablet at noon and 1 tablet in the evening. [facility] foLIC acid 1 mg tablet 06-22 06:59: 44 Yes 1mg Take 1 tablet by mouth in the morning. [facility] ferrous sulfate (IRON) 325 mg (65 mg iron) tablet 06-22 06:59: 44 Yes 325mg Take 1 tablet by mouth in the morning and 1 tablet at noon and 1 tablet in the evening. Take with meals. [facility] midodrine 2.5 mg tablet 05-31 00:00: 00 06-29 00:00 :00 No [id number] 2.5mg Take 1 tablet by mouth in the morning and 1 tablet at noon and 1 tablet in the evening. [facility] midodrine 2.5 mg tablet 17 00:00: 00 05-31 00:00 :00 No [id number] 2.5mg Take 1 tablet by mouth in the morning and 1 tablet at noon and 1 tablet in the evening. [facility] foLIC acid 1 mg tablet 03-09 08:45: 47 Yes 1mg Take 1 tablet by mouth in the morning. [facility] ferrous sulfate (IRON) 325 mg (65 mg iron) tablet 03-09 08:45: 47 Yes 325mg Take 1 tablet by mouth in the morning and 1 tablet at noon and 1 tablet in the evening. Take with meals. [facility] aspirin 81 mg EC tablet 504 00:00: 00 Yes 81mg Take 1 tablet by mouth in the morning. [facility] atorvastati n 40 mg tablet 4-27 00:00: 00 Yes 40mg Take 1 tablet by mouth at bedtime. [facility] ibuprofen (MOTRIN) 600 mg tablet 12 00:00: 00 07-09 00:00 :00 No 600mg Take 1 tablet by mouth every 6 (six) hours as needed for Pain (scale 4-6). [facility] Immunizations Ordered Immunization Name Filled Immunization Name Date Status Comments Source SARS-COV-2 COVID-19 PFIZER VACCINE 2021-05-14 00:00:00 Completed [facility] SARS-COV-2 COVID-19 PFIZER VACCINE 2021-05-14 00:00:00 Completed SARS-COV-2 COVID-19 PFIZER VACCINE 2021-04-22 00:00:00 Completed [facility] SARS-COV-2 COVID-19 PFIZER VACCINE 2021-04-22 00:00:00 Completed SARS-COV-2 COVID-19 PFIZER VACCINE Unknown Completed [facility] SARS-COV-2 COVID-19 PFIZER VACCINE Unknown Completed [facility] SARS-COV-2 COVID-19 PFIZER VACCINE Unknown Completed [facility] SARS-COV-2 COVID-19 PFIZER VACCINE Unknown Completed [facility] SARS-COV-2 COVID-19 PFIZER VACCINE Unknown Completed [facility] SARS-COV-2 COVID-19 PFIZER VACCINE Unknown Completed [facility] SARS-COV-2 COVID-19 PFIZER VACCINE Unknown Completed [facility] SARS-COV-2 COVID-19 PFIZER VACCINE Unknown Completed [facility] Vital Signs Vital Name Observation Time Observation Value Comments S ource Systolic blood pressure 2024-10-03 15:41:00 105 [facility]Hg[facility] Di[facility] 2024-10-03 15:41:00 54 mm[facility]Hg[facility] Heart rate 2024-10-03 15:41:00 70 /min [facility] Body temperature 2024-10-03 15:41:00 37 Wen [facility] Body height 2024-10-03 15:41:[address] [facility] Body weight 2024-10-03 15:41:[address] [facility] BMI 2024-10-03 15:41:00 31.58 kg/m2 [facility] Oxygen saturation in Arterial blood by Pulse oximetry 2024-10-03 15:41:00 100 /min [facility] Systolic blood pressure 2023-07-09 18:10:00 104 mm[Hg] [facility] Diastolic blood pressure 2023-07-09 18:10:00 67 mm[Hg] [facility] Heart rate 2023-07-09 18:10:00 65 /min [facility] Body height 2023-07-09 18:10:[address] [facility] Body weight 2023-07-09 18:10:[address] [facility] BMI 2023-07-09 18:10:00 33.81 kg/m2 [facility] Oxygen saturation in Arterial blood by Pulse oximetry 2023-07-09 18:10:00 100 /min [facility] Body height 2023-06-22 13:51:[address] [facility] Body weight 2023-06-22 13:51:[address] [facility] BMI 2023-06-22 13:51:00 32.61 kg/m2 [facility] Systolic blood pressure 2023-06-22 13:15:00 121 mm[Hg[facility] Diastolic blood pressure 2023-06-22 13:15:00 72 mm[Hg[facility] Heart rate 2023-06-22 13:15:00 60 /[facility] Respiratory rate 2023-06-22 13:15:00 21 /min [facility] Oxygen saturation in Arterial blood by Pulse oximetry 2023-06-22 13:15:00 100 /min [facility] Body temperature 2023-06-22 12:05:00 36.61 Wen [facility] Systolic blood pressure 2023-06-16 03:00:00 103 mm[Hg] [facility] Diastolic blood pressure 2023-06-16 03:00:00 61 mm[Hg] [facility] Heart rate 2023-06-16 03:00:00 72 /min [facility] Respiratory rate 2023-06-16 03:00:00 16 /min [facility] Oxygen saturation in Arterial blood by Pulse oximetry 2023-06-16 03:00:00 98 /min [facility] Body temperature 2023-06-15 23:57:00 37.22 Wen [facility] Body height 2023-06-15 23:57:00 162.6 cm [facility] Body weight 2023-06-15 23:57:00 86.183 kg [facility] BMI 2023-06-15 23:57:00 32.61 kg/m2 [facility] Systolic blood pressure 2023-05-07 19:25:00 107 mm[Hg[facility] Diastolic blood pressure 2023-05-07 19:25:00 70 mm[Hg] [facility] Heart rate 2023-05-07 19:25:00 54 /min [facility] Respiratory rate 2023-05-07 19:25:00 16 /min [facility] Body height 2023-05-07 19:25:[address] [facility] Body weight 2023-05-07 19:25:[address] [facility] BMI 2023-05-07 19:25:00 32.77 kg/m2 [facility] Oxygen saturation in Arterial blood by Pulse oximetry 2023-05-07 19:25:00 98 /min [facility] Systolic blood pressure 2023-03-09 13:52:00 110 mm[Hg] [facility] Diastolic blood pressure 2023-03-09 13:52:00 68 mm[Hg] [facility] Heart rate 2023-03-09 13:52:00 71 /min [facility] Body height 2023-03-09 13:52:00 162.6 cm [facility] Body weight 2023-03-09 13:52:00 85.957 kg [facility] BMI 2023-03-09 13:52:00 32.53 kg/m2 [facility] Oxygen saturation in Arterial blood by Pulse oximetry 2023-03-09 13:52:00 99 /min [facility] Systolic blood pressure 2019-07-02 20:30:00 137 mm[Hg] [place] [facility] Diastolic blood pressure 2019-07-02 20:30:00 91 mm[Hg] [place] [facility] Heart rate 2019-07-02 20:30:00 90 /min [facility] Body temperature 2019-07-02 20:30:00 36.83 Wen [facility] Respiratory rate 2019-07-02 20:30:00 18 /min [facility] Body height 2019-07-02 20:30:[address] [facility] Body weight 2019-07-02 20:30:[address] [facility] BMI 2019-07-02 20:30:00 58.70 kg/m2 [facility] Procedures Procedure Date / Time Performed Performing Clinician Source IRON PANEL 2024-10-03 16:10:00 Steve Restrepo [facility] CBC WITH DIFF 2024-10-03 16:10:00 Steve Restrepo [facility] MEDICAL RELEASE/CLEARANCE FORMS 2023-07-11 05:01:00 Doctor Unassigned, [place] [facility] TRANSESOPHAGEAL ECHO (JAYNA) COMPLETE W/ DOPPLER AND COLOR 2023-06-22 12:39:00 Leandra Biggs [facility] TRANSESOPHAGEAL ECHO 2023-06-22 05:01:00 Doctor Unassigned, [place] [facility] CT HEAD WO CONTRAST 2023-06-16 02:18:15 Mitzi Mcbride [facility] TROPONIN I 2023-06-16 01:41:[address] [facility] COMP. METABOLIC PANEL ([id number]) 2023-06-16 01:41:00 Mitzi Mcbride [facility] CBC WITH DIFF 2023-06-16 01:41:00 Mitzi Mcbride [facility] N-TERMINAL PRO-BNP 2023-06-16 01:41:00 Mitzi Mcbride [facility] POCT TEST 2023-06-16 01:31:00 Mitzi Mcbride [facility] URINALYSIS 2023-06-16 01:29:[address] [facility] INSURANCE CORRESPONDENCE 2023-04-20 05:01:00 Doc tor Unassigned, [place] [facility] PHYSICIAN CERTIFICATION STATEMENT 2023-04-07 05:01:00 Doctor Unassigned, [place] [facility] HB ECG ROUTINE & RHYTHM STRIP 2023-03-09 13:49:18 Leandra Biggs [facility] CONSENT/REFUSAL FOR DIAGNOSIS AND TREATMENT 2023-03-09 13:26:58 Doctor Unassigned, [place] [facility] REFERRAL- REQUEST/RESPONSE 2023-03-01 05:01:00 D neeraj Unassigned, [place] [facility] Encounters Start Date/Time End Date/Time Encounter Type Admission Type Attending [facility] Care Facility Care Department Encounter ID Source 2024-11-03 11:00:00 2024-11-03 11:00:00 [id number] 2024-10-23 09:00:00 2024-10-23 09:00:00 Outpatient R JESSICA TOBAR [facility] [id number] [facility] 2024-10-13 00:00:00 2024-10-21 17:04[facility] 1.2.840.114 350.1.13.10 4.2.7.2.686 [id number] [facility] 2024-10-21 14:00:00 2024-10-21 14:00:00 [facility] [id number] [facility] 2024-10-13 00:00:00 2024-10-20 15:33:00 Patient Secure Steve Restrepo [facility] 1.2.840.114 350.1.13.10 4.2.7.2.686 [id number] [facility] 2024-10-13 00:00:00 2024-10-17 08:19:52 Refill Lauro Steve [facility] [place]?[facility] MEDICAL OFFICE BUILDING 1.2.840.114 350.1.13.10 4.2.7.2.686 [id number] [facility] 2024-10-13 00:00:00 2024-10-13 08:42:53 Telephone Sondra Baptistea [facility] [place]?[facility] MEDICAL OFFICE BUILDING 1.2.840.114 350.1.13.10 4.2.7.2.686 [id number] [facility] 2024-10-03 00:00:00 2024-10-03 11:38:17 Telephone Restrepo Steve [facility] [place]?[facility] MEDICAL OFFICE BUILDING 1.2.840.114 350.1.13.10 4.2.7.2.686 [id number] [facility] 2024-10-03 11:15:00 2024-10-03 11:15:00 Audio Narrator Visit Lab, Otto - Steve Antoine Lab, Ang - Ricardo [facility] [place]?[facility] MEDICAL OFFICE BUILDING 1.2.840.114 350.1.13.10 4.2.7.2.686 [id number] [facility] 2024-10-03 10:30:00 2024-10-03 10:30:00 Office Visit Steve Restrepo [facility] [place]?[facility] MEDICAL OFFICE BUILDING 1.2.840.114 350.1.13.10 4.2.7.2.686 [id number] [facility] 2024-10-03 10:30:00 2024-10-03 10:05:21 Outpatient R STEVE RESTREPO [facility] [id number] [facility] 2024-05-03 00:00:00 2024-05-03 13:50:13 Myke Reynoso 1.2.840.114 350.1.13.70 8.2.7.2.686 [id number] Samanta Maki 2024-04-03 14:00:00 2024-04-03 14:00:00 Outpatient R MICHELLE BAPTISTETHIA [facility] [id number] [facility] 2024-03-10 00:00:00 2024-03-31 13:31:05 [facility] 1..840.114 350.1.13.10 4.2.7.2.686 [id number] [facility] 2024-03-11 09:30:00 2024-03-11 09:30:00 Outpatient R DELGADO-IDA S, NI DELGADO-IDA S, NI [facility] [id number] [facility] 2024-03-10 10:02:18 2024-03-10 10:02:18 Outpatient SFA [facility] [id number] Kit Sultana 2023-08-13 15:30:00 2023-08-13 15:30:00 Outpatient R MARGARITO CORONADO CHERYAL [facility] [id number] [facility] 2023-07-13 00:00:00 2023-07-13 00:00:00 [facility] 1..840.114 350.1.13.10 4.2.7.2.686 [id number] [facility] 2023-07-12 00:00:00 2023-07-12 00:00:00 Patient Secure Msg Baptiste [facility] [place]?[facility] 1..840.114 350.1.13.10 4.2.7.2.686 [id number] [facility] 2023-07-12 00:00:00 2023-07-12 00:00:00 Patient Secure Msg Oliva [facility] MEDICAL OFFICE BUILDING 1.284.114 350.1.13.10 4.2.7.2.686 [id number] [facility] 2023-07-11 16:30:00 2023-07-11 16:52:09 [facility] [id number] [facility] 2023-07-11 16:30:00 2023-07-11 16:45:00 Audio Narrator Visit Lab, Otto Silva Oliva [facility] MEDICAL OFFICE BUILDING 1.284.114 350.1.13.10 4.2.7.2.686 [id number] [facility] 2023-07-11 00:00:00 2023-07-11 00:00:00 [facility] 1.84.114 350.1.13.10 4.2.7.2.686 [id number] [facility] 2023-07-11 00:00:00 2023-07-11 00:00:00 Orders Only Doctor Unassigned, [place] [facility] 1.840.114 350.1.13.10 4.2.7.2.686 [id number] [facility] 2023-07-09 13:00:00 2023-07-09 15:42:52 Outpatient R LOLA BAPTISTE [facility] [id number] [facility] 2023-07-09 13:00:00 2023-07-09 13:30:00 [facility] MEDICAL OFFICE BUILDING 1.284.114 350.1.13.10 4.2.7.2.686 [id number] [facility] 2023-07-02 09:00:00 2023-07-02 09:00:00 Outpatient R OLLA BAPTISTE [facility] [id number] [facility] 2023-06-29 00:00:00 2023-06-29 00:00:00 [facility] 1.2.840.114 350.1.13.10 4.2.7.2.686 [id number] [facility] 2023-06-27 00:00:00 2023-06-27 00:00:00 Telephone Dian [facility] BUILDING 1.2.840.114 350.1.13.10 4.2.7.2.686 [id number] [facility] 2023-06-27 00:00:00 2023-06-27 00:00:00 Telephone Dian [facility] BUILDING 1.2.840.114 350.1.13.10 4.2.7.2.686 [id number] [facility] 2023-06-27 00:00:00 2023-06-27 00:00:00 Telephone Dian [facility] BUILDING 1.2.840.114 350.1.13.10 4.2.7.2.686 [id number] [facility] 2023-06-22 06:48:53 2023-06-22 23:59:00 Outpatient R [facility] [id number] [facility] 2023-06-22 06:48:53 2023-06-22 23:59:00 [facility] 1.2.840.114 350.1.13.10 4.2.7.2.686 [id number] [facility] 2023-06-19 13:40:00 2023-06-19 13:40:00 [facility] [id number] [facility] 2023-06-15 18:59:00 2023-06-15 23:24:00 Emergency X MITZI MCBRIDE [facility] [id number] [facility] 2023-06-15 18:59:00 2023-06-15 23:24:00 Emergency Mitzi Mcbride [facility] 1.2.840.114 350.1.13.10 4.2.7.2.686 [id number] [facility] 2023-06-05 00:00:00 2023-06-05 00:00:00 [facility] [id number] [facility] 2023-06-04 00:00:00 2023-06-04 00:00:00 Telephone Dian [facility] 1.2.840.114 350.1.13.10 4.2.7.2.686 [id number] [facility] 2023-05-30 00:00:00 2023-05-30 00:00:00 Refill Dian [facility] 1.2.840.114 350.1.13.10 4.2.7.2.686 [id number] [facility] 2023-05-11 00:00:00 2023-05-11 00:00:00 Telephone Dian [facility] 1.2.840.114 350.1.13.10 4.2.7.2.686 [id number] [facility] 2023-05-07 14:20:00 2023-05-07 14:40:00 [facility] 1.2.840.114 350.1.13.10 4.2.7.2.686 [id number] [facility] 2023-05-07 14:20:00 2023-05-07 14:20:00 [facility] [id number] [facility] 2023-05-01 00:00:00 2023-05-01 00:00:00 Patient Secure Mssal Biggs [facility] BUILDING 1.2.840.114 350.1.13.10 4.2.7.2.686 [id number] [facility] 2023-04-27 00:00:00 2023-04-27 00:00:00 Telephone Dian [facility] 1.2.840.114 350.1.13.10 4.2.7.2.686 [id number] [facility] 2023-04-20 00:00:00 2023-04-20 00:00:00 Telephone Dian [facility] 1.2.840.114 350.1.13.10 4.2.7.2.686 [id number] [facility] 2023-04-20 00:00:00 2023-04-20 00:00:00 Orders Only Doctor Unassigned, [place] [facility] 1.2.840.114 350.1.13.10 4.2.7.2.686 [id number] [facility] 2023-04-13 00:00:00 2023-04-13 00:00:00 Telephone Dian [facility] 1.2.840.114 350.1.13.10 4.2.7.2.686 [id number] [facility] 2023-04-07 00:00:00 2023-04-07 00:00:00 Orders Only Doctor Unassigned, [place] [facility] 1.2.840.114 350.1.13.10 4.2.7.2.686 [id number] [facility] 2023-04-05 00:00:00 2023-04-05 00:00:00 [facility] 1.2.840.114 350.1.13.10 4.2.7.2.686 [id number] [facility] 2023-03-30 00:00:00 2023-03-30 00:00:00 [facility] 1.2.840.114 350.1.13.10 4.2.7.2.686 [id number] [facility] 2023-03-29 15:01:56 2023-03-29 23:59:00 [facility] [id number] 2023-03-13 00:00:00 2023-03-13 00:00:00 Telephone Dian [facility] BUILDING 1.2.840.114 350.1.13.10 4.2.7.2.686 [id number] [facility] 2023-03-09 09:40:00 2023-03-09 09:40:00 [facility] 1.2.840.114 350.1.13.10 4.2.7.2.686 [id number] [facility] 2023-03-09 09:40:00 2023-03-09 09:16:01 [facility] [id number] [facility] 2023-03-09 00:00:00 2023-03-09 00:00:00 Orders Only Doctor Unassigned, [place] [facility] 1.2.840.114 350.1.13.10 4.2.7.2.686 [id number] [facility] 2023-03-08 13:57:51 2023-03-08 13:57:51 Outpatient [facility] [id number] Kit Sultana 2023-03-01 09:56:01 2023-03-01 09:56:01 Outpatient [facility] [id number] Kit Sultana 2023-03-01 00:00:00 2023-03-01 00:00:00 Orders Only Doctor Unassigned, [place] [facility] 1.2.840.114 350.1.13.10 4.2.7.2.686 [id number] [facility] 2023-02-22 10:00:22 2023-02-22 10:00:22 Outpatient [facility] [id number] 2023-02-16 14:11:58 2023-02-16 14:11:58 Outpatient [facility] [id number] Kit Sultana 2019-07-08 00:00:00 2019-07-08 00:00:00 Case Management Sheryl Wooten [facility] 1.2.840.114 350.1.13.10 4.2.7.2.686 [id number] [facility] 2019-07-02 15:20:19 2019-07-02 15:54:38 Office Visit Sheryl Wooten [facility] 1.2.840.114 350.1.13.10 4.2.7.2.686 [id number] [facility] Results Test Description Test Time Test Comments Results Result Co mments Source [facility] [id number] 21:30:08* Test Item Value Reference Range Interpretation Comme nts IRON (test code = 9553076636) 31 ug/dL 50-160 L TIBC (test code = 9136600648) 468 ug/dL 250-410 H % FE SAT (test code = 3861632052) 7 % 20-50 L Lab Interpretation (test cod e = 68589-3) [facility]normal [facility] (JAYNA)2023-06-22 19:13:01 * Test Item Value Reference Range Interpretation Comme nts Height (test code = 3659300665) 54 in Weight (test code = 6104034535) 190 lbs Systolic BP (test code = 1803165310) 118 mmHg Diastolic BP (test code = 9976501202) 73 mmHg Heart Rate (test code = 5171802886) 58 bpm Radiology Study observation (narrative) (test code = 60394-9) MIRACLE (test code = MIRACLE) ?Left?Ventricle: Left ventricle size is normal. Normal systolic function. ?Right?Ventricle: Right ventricle size is normal. Normal systolic function. ?Left?Atrium: Left atrium size is normal. Saline contrast shows no shunt. Atrial septal aneurysm is not present. Normal appendage flow velocity. No thrombus in left atrial appendage. ?Mitral?Valve: Mitral valve structure is normal. ?Tricuspid?Valve: Right ventricular systolic pressure is normal. ?Aorta: Normal sized aorta. 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 ?Right?Atrium: Right atrium size is normal. There is an Eustachian valve. Left VentricleLeft ventricle size is normal. Normal systolic function.Right VentricleRight ventricle size is normal. Normal systolic function.Left AtriumLeft atrium size is normal. Saline contrast shows no shunt. Atrial septal aneurysm is not present. Normal appendage flow velocity. No thrombus in left atrial appendage.Right AtriumRight atrium size is normal. There is an Eustachian valve.IVC/SVCIVC diameter is less than or equal to 21 mm and decreases greater than 50% during inspiration; therefore the estimated right atrial pressure is normal (~0-5 mmHg).Mitral ValveMitral valve structure is normal. Trace transvalvular regurgitation.Tricuspid ValveTricuspid valve structure is normal. Trace transvalvular regurgitation. Right ventricular systolic pressure is normal.Aortic ValveTricuspid.Pulmonic ValveNot well visualized. Valve structure is normal. Trace paravalvular regurgitation.Ascending AortaNormal sized aorta. Atherosclerosis of the descending aorta with mild thickening.PericardiumTh e pericardium is normal. No pericardial effusion.Study DetailsA complete transesophageal echocardiogram was performed using complete 2D, color flow Doppler and spectral Doppler. During the study the esophageal and descending thoracic views were captured.Saline contrast was used to rule out intra cardiac shunt. The probe was inserted by the head of marketing analytics. There was no probe insertion difficulty.There were 1 attempts to insert the probe. Probe in 730. Probe out 739. Sedation and monitoring provided by anesthesia, see Epic documentation. 4% Lidocaine was used for local oropharyngeal anesthesia. There were no complications during the procedure. [facility] [id number] 02:33:33* Test Item Value Reference Range Interpretation Comme nts TROPONIN I (test code = 4133087162) <=0.034 MIRACLE (test code = MIRACLE) Reference [...] of biotin. Lab Interpretation (test code = 39690-9) Normal [facility] WITH [id number] 02:33:12* Test Item Value Reference Range Interpretation Comme nts WBC (test code = 6690-2) 5.61 See_Comment [Automated [employer]] The system which generated this result transmitted reference range: 4.30 - 11.10 10*3/?L. The reference range was not used to interpret this result as normal/abnormal. RBC (test code = 789-8) 4.17 See_Comment [Automated [employer]] The system which generated this result transmitted [...] 33.3 g/dL 31.6-35.1 RDW-SD (test code = 06832-9) 51.8 fL 39.0-49.9 H RDW-CV (test code = 788-0) 15.6 % 12.0-15.5 H PLT (test code = 777-3) 209 See_Comment [Automated messa ge] The system which generated this result transmitted reference range: 166 - 358 10*3/?L. The reference range was not used to interpret this result as normal/abnormal. MPV (test code = 62948-6) 11.8 fL 9.5-12.9 NRBC/100 WBC (test code = 4044483615) 0.0 See_Comment [Automated Follica ssage] The system which generated this result transmitted reference range: 0.0 - 10.0 /100 WBCs. The reference range was not used to interpret this result as normal/abnormal. NRBC x10^3 (test code = 4130930341) See_Comment [Automated [employer]] The system which generated this result transmitted reference range: 10*3/?L. The reference range was not used to interpret this result as normal/abnormal. GRAN MAT (NEUT) % (test code = 770-8) 49.0 % IMM GRAN % (test code = 1810347891) 0.20 % LYMPH % (test code = 736-9) 38.3 % MONO % (test code = 5905-5) 10.5 % EOS % (test code = 713-8) 0.9 % BASO % (test code = 706-2) 1.1 % GRAN MAT x10^3(ANC) (test code = 8425633583) 2.75 10*3/uL 1.88-7.09 IMM GRAN x10^3 (test code = 1028756612) 0.00-0.06 LYMPH x10^3 (test code = 731-0) 2.15 10*3/uL 1.32-3.29 MONO x10^3 (test code = 742-7) 0.59 10*3/uL 0.33-0.92 EOS x10^3 (test code = 711-2) 0.05 10*3/uL 0.03-0.39 BASO x10^3 (test code = 704-7) 0.06 10*3/uL 0.01-0.07 Lab Interpretation (test code = 56246-1) Abnormal [facility] [id number] 02:31:11* Test Item Value Reference Range Interpretation Comme nts NT-proBNP (test code = 69526-9) 41 pg/mL <=125 Lab Interpretation (test cod e = 52391-7) Normal [facility] METABOLIC PANEL (52751)2023-06-16 02:22:09* Test Item Value Reference Range Interpretation Comme nts NA (test code = 4266840638) 140 mmol/L 135-145 K (test code = 2094142639) 4.7 mmol/L 3.5-5.0 CL (test code = 4361221317) 108 mmol/L 98-108 CO2 TOTAL (test code = 6246003309) 24 mmol/L 23-31 AGAP (test code = 8624560707) 8 2-16 BUN (test code = 1338007961) 11 mg/dL 7-23 GLUCOSE (test code = 8280621314) 70 mg/dL 70-110 CREATININE (test code = 5405091596) 0.65 mg/dL 0.50-1.04 TOTAL BILI (test code = 8119225647) 0.2 mg/dL 0.1-1.1 CALCIUM (test code = 3567312799) 8.8 mg/dL 8.6-10.6 T PROTEIN (test code = 9226655184) 7.3 g/dL 6.3-8.2 ALBUMIN (test code = 3589973051) 4.2 g/dL 3.5-5.0 ALK PHOS (test code = 9668690481) 49 U/L 34-122 ALTv (test code = 1742-6) 60 U/L 5-35 H AST(SGOT) (test code = 2006331055) 43 U/L 13-40 H eGFR (test code = 5139855676) 103.1 mL/min/1.73m2 MIRACLE (test code = MIRACLE) [...] imaging tests). Lab Interpretation (test code = 08422-0) [facility]normal [facility] [id number] 01:31:00* Test Item Value Reference Range Interpretation Comme nts POCT PREG (test code = 1605) Negative On board controls acceptable with C Line (test code = 3574) Yes POCT PREG LOT # (test code = 3575) [id number] POCT PREG TEST DATE ( test code = 3576) Lab Interpretation (test cod e = 57993-7) Normal [facility]viewOCCULT BLD,FECAL,IMMUNOASSAY [id number] 11:20:54* Test Item Value Reference Range Interpretation Comme nts OCCULT BLD, FECAL (test code = 52970) NEGATIVE NEGATIVE UNLESS OTHER PERRY INDICATED, ALL TESTING PERFORMED AT [facility] [address] [place] [address] SENIOR RESERVATIONS AGENT: KATELYN GOMEZ M.D. [place] NUMBER [id number] [facility]. [id number] PATHOLOGIST SMEAR [id number] 13:20:44* Test Item Value Reference Range Interpretation [...] (NOTE) Katelyn Gomez M.D. (electronically signed) Diplomate, Citizen Of [place] Board of Pathology with Subspecialty Certification, Hematology CPT: (test code = 8400) 66210 WBC (test code = 1001) 4.1 K/UL [...] 0.00-0.10 ABS NUCLEATED RBCS (test code = 19659) 0.00 K/UL 0.00-0.11 COMMENTS (test code = 1016) (NOTE) MARKED ANISOCYTO SIS FEW ELLIPTOCYTES MODERATE HYPOCHROMASIA SLIGHT MICROCYTOSIS SLIGHT POIKILOCYTOSIS SLIGHT POLYCHROMASIA FEW TEAR DROP CELLS PLATELETS APPEAR INCREASED UNLESS OTHERWISE INDICATED, ALL TESTING PERFORMED AT [facility] [address] [place] [address] SENIOR RESERVATIONS AGENT: KATELYN GOMEZ M.D. CLIA NUMBER [id number] [facility] [place]. [id number] HAPTOGLOBIN, [id number] 13:10:19* Test Item Value Reference Range Interpretation Comme nts HAPTOGLOBIN, QUANT (test cod e = 87071) 78 MG/DL 32-197 [id number] 07:59:28* Test Item Value Reference Range Interpretation Comme nts LDH (test code = 2224) 178 U/L 135-214 CBC W/AUTO DIFF WITH [id number] 23:14:06* Test Item Value Reference Range Interpretation [...] 0.00-0.10 ABS NUCLEATED RBCS (test code = 45202) 0.00 K/UL 0.00-0.11 COMMENTS (test code = 1016) (NOTE) MODERATE ANISOCY TOSIS MARKED HYPOCHROMASIA SLIGHT MICROCYTOSIS SLIGHT POLYCHROMASIA FEW SCHISTOCYTES PLATELETS APPEAR INCREASED RETICULOCYTE WITH [id number] 23:14:06* Test Item Value Reference Range Interpretation Comme nts RETICULOCYTE COUNT (test cod e = 1018) 3.68 % 0.80-2.40 H ABSOLUTE RETICULOCYTE (test code = 62248) 131.0 K/UL 32.0-105.0 H [id number] 04:46:23* Test Item Value Reference Range Interpretation Comme nts FERRITIN (test code = 2075) 114 NG/ML 13-200 VITAMIN B 12 AND FOLIC [id number] 04:46:23* Test Item Value Reference Range Interpretation [...] IRON BINDING CAPACITY AND IRON AND % [id number] 23:59:13* Test Item Value Reference Range Interpretation Comme nts IRON, SERUM (test code = 2222) 25 UG/DL 37-145 L UNSATURATED IBC (test code = 84797) 445 UG/DL 112-347 H CALC TOTAL IBC (test code = 2077) 470 UG/DL 250-450 H CALC % IRON SAT (test code = 2079) 5 % 20-50 L [id number] 23:58:52* Test Item Value Reference Range Interpretation Comme nts TRANSFERRIN (test code = 4936) 377 MG/DL 200-360 H [id number] 23:58:52* Test Item Value Reference Range Interpretation Comme nts HOMOCYSTEINE (test code = 4288) 15 UMOL/L <12 H UNLESS OTHERWISE INDICATED, ALL TESTING PERFORMED AT [facility] [address] [place] [address] SENIOR RESERVATIONS AGENT: KATELYN GOMEZ M.D. CLIA NUMBER [id number] [facility]. [id number] MICROSCOPIC [id number] 04:53:02* Test Item Value Reference Range Interpretation Comme nts WHITE BLOOD CELLS (test code = 1513) 0-5 /HPF 0-5 RED BLOOD CELLS (test code = 1514) 0-2 /HPF 0-2 PLEASE NOTE: NEW REFERENCE RANGE EFFECTIVE 23. EPITHELIAL CELLS (test code = 58367) 6-10 /HPF 0-10 BACTERIA (test code = 1515) >3+ NONE SEEN CRYSTALS (test code = 1516) PRESENT NONE SEEN A CALCIUM OXALATE CRYSTALS CASTS, HYALINE (test code = 1517) TRACE NONE-TRACE CBC W/AUTO DIFF WITH [id number] 15:50:45* Test Item Value Reference Range Interpretation [...] 0.00-0.10 ABS NUCLEATED RBCS (test code = 75231) 0.00 K/UL 0.00-0.11 COMMENTS (test code = 1016) (NOTE) MODERATE ANISOCY TOSIS MODERATE HYPOCHROMASIA MODERATE MICROCYTOSIS PLATELETS APPEAR NORMAL TSH, THIRD [id number] 10:17:10* Test Item Value Reference Range Interpretation Comme nts TSH, THIRD GENERATION (test code = 2821) 4.160 UIU/ML 0.400-4.100 H [id number] 08:48:32* Test Item Value Reference Range Interpretation Comme nts NT-proBNP (test code = 99221) <50 PG/ML SEE BELOW If NT-ProBNP is less than 300 PG/ML, heart failure is unlikely for allages. Age.................Heart Failure Likely <50 Years...........>=450 PG/ML 50-75 Years.........>=900 PG/ML > 75 Years..........>=1800 PG/ML Methodology: RetiDiag Anais Electrochemiluminescense Immunoassay [facility] has important pathology staff changes effective 12/20/2022. New pathology staff will provide uninterrupted, excellent patient care and clinical consultation. See URL: [email or web address]. UNLESS OTHERWISE INDICATED, ALL TESTING PERFORMED AT [facility] [address] [place] [address] SENIOR RESERVATIONS AGENT: KATELYN GOMEZ M.D. CLIA NUMBER [id number] [facility]. [id number] COMPREHENSIVE METABOLIC [id number] 06:00:01* Test Item Value Reference Range Interpretation Comme nts GLUCOSE (test code = 7) 85 MG/DL 70-99 BUN (test code = 220) 7 MG/DL 6-20 CREATININE (test code = 221) 0.71 MG/DL 0.60-1.30 eGFR (2020 CKD-EPI) (test code = 56595) 113 ML/MIN/1.73 >60 CALC BUN/CREAT (test code = 2235) 10 RATIO 6-28 SODIUM (test code = 223) 141 MEQ/L 133-146 POTASSIUM (test code = 2228) 4.2 MEQ/L 3.5-5.4 CHLORIDE (test code = 2215) 106 MEQ/L 95-107 CARBON DIOXIDE (test code = 2206) 24 MEQ/L 19-31 CALCIUM (test code = 2209) 9.2 MG/DL 8.5-10.5 PROTEIN, TOTAL (test code = 2229) 7.4 G/DL 6.1-8.3 ALBUMIN (test code = [...] code = 2219) 31 U/L 5-40 LIPID [id number] 06:00:01* Test Item Value Reference Range Interpretation Comme nts CHOLESTEROL (test code = 2210) 128 MG/DL <200 TRIGLYCERIDES (test code = 2232) 66 MG/DL <150 HDL CHOLESTEROL (test code = 2220) 62 MG/DL >39 CALC LDL CHOL (test code = 2237) 51 MG/DL <100 NOTE: CALCULATED LDL IS BASED ON MRAIPOSA-IYER METHOD WHICHINCLUDES ADJUSTABLE TRIGLYCERIDE:VLDL CHOLESTEROL RATIO.THIS FACTOR VARIES BY MEASURED TRIGLYCERIDE AND NON-HDLCHOLESTEROL CONCENTRATIONS WITH INCREASED CALCULATED LDL SEENIN HIGHER TRIGLYCERIDE OR LOWER NON-HDL SPECIMENS. FOR MOREINFORMATION, SEE CLIENT ANNOUNCEMENT AT [email or web address] RISK RATIO LDL/HDL (test code = 2238) 0.82 RATIO <3.22 HEMOGLOBIN [id number] 05:05:23* Test Item Value Reference Range Interpretation Comme nts HEMOGLOBIN A1c (test code = 65684) 5.3 % 4.2-5.6 History and Physical Notes [...] of drug use. Current Medications: [facility] Check[facility]: + Dysphagia, + Esophageal diverticula, + [...] rows by the nurse. Time out performed. [facility]"
[2024-11-02] MEDS ORDERED: IBUPROFEN 200 MG TAB PO ONE (13:34)
[2024-11-02] MEDS ORDERED: IBUPROFEN 400 MG TAB ONE (13:35)
[2024-11-02] MEDS ORDERED: BENZONATATE 100 MG CAP PO ONE (13:48)
[2024-11-02 13:54] LABS: SARS-CoV-2 Antigen CONTROL BLUE LINE VIS/BG OK; SARS-CoV-2 Antigen Rapid Res Negative (Negative)
--- NOTE | 2024-11-02 14:21 | ER ---
Nurse's Notes [facility] Name: Larry Morton Age: 39 yrs Sex: Female : 1985 Arrival Date: 11/02/2024 Time: 11:53 Bed 11 Private MD: Diagnosis: Influenza due to identified novel influenza A virus with other respiratory manifestations Presentation: 11/02 12:22 Chief complaint: Patient states: STATES, COUGH, CONGESTION AND FEVER "104.3" AT HOME db YESTERDAY. TOOK TYLENOL LAST AT 10 PM YESTERDAY. Coronavirus screen: Client denies travel out of the [place] in the last 14 days. At this time, the client does not indicate any symptoms associated with coronavirus-19. Ebola Screen: Patient negative for fever greater than or equal to 101.5 degrees Fahrenheit, and additional compatible Ebola Virus Disease symptoms Patient denies exposure to infectious person. Patient denies travel to an Ebola-affected area in the 21 days before illness onset. No symptoms or risks identified at this time. Initial Sepsis Screen: Does the patient meet any 2 criteria? No. Patient's initial sepsis screen is negative. Does the patient have a suspected source of infection? No. Patient's initial sepsis screen is negative. Risk Assessment: Do you want to hurt yourself or someone else? Patient reports no desire to harm self or others. Onset of symptoms was November 01, 2024. 12:22 Method Of Arrival: Ambulatory db 12:22 Acuity: CELESTINO 4 db Triage Assessment: 12:23 General: Appears in no apparent distress. comfortable, Behavior is calm, cooperative. db Pain: Complains of pain in face. Neuro: Level of Consciousness is awake, alert, obeys commands, Oriented to person, place, time, situation. Cardiovascular: No deficits noted. Reports CHEST PAIN WITH COUGH. Respiratory: Airway is patent Respiratory effort is even, unlabored, Respiratory pattern is regular, symmetrical. 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 - Infectious Disease History:: Denies. - Social history:: Smoking status: Patient denies any tobacco usage or history of. Screenin:31 [facility] ED Fall Risk Assessment (Adult) History of falling in the last 3 months, db including since admission No falls in past 3 months (0 pts) Confusion or Disorientation No (0 pts) Intoxicated or Sedated No (0 pts) Impaired Gait No (0 pts) Mobility Assist Device Used No (0 pt) Altered Elimination No (0 pt) Score/Fall Risk Level 0 - 2 = Low Risk Oriented to surroundings, Maintained a safe environment. Abuse screen: Denies threats or abuse. Denies injuries from another. Nutritional screening: No deficits noted. Tuberculosis screening: No symptoms or risk factors identified. Assessment: 13:38 Reassessment: PENDING PHARMACY FOR TESSALON PERLE MEDICATION. db 14:31 Reassessment: Patient appears in no apparent distress at this time. Patient and/or db family updated on plan of care and expected duration. Pain level reassessed. Patient is alert, oriented x 3, equal unlabored respirations, skin warm/dry/pink. General: Appears in no apparent distress. comfortable, Behavior is calm, cooperative. Pain: Complains of pain in face Pain does not radiate. Neuro: Level of Consciousness is awake, alert, obeys commands, Oriented to person, place, time, situation. Vital Signs: 12:22 BP 114 / 68; Pulse 73; Resp 16; Temp 98.5; Pulse Ox 100% ; Height 5 ft. 4 in. ; db 14:31 BP 114 / 68; Pulse 72; Resp 16; Pulse Ox 100% on R/A; db ED Course: 11:54 Patient arrived in ED. am2 11:55 Luis Carlos Galicia PA is PHCP. cp 11:55 Aramis Limon MD is Attending Physician. cp 12:23 Triage completed. db 12:23 Arm band placed on. db 13:00 Shaina Paige, ISMAEL is Primary Nurse. db 13:21 Influenza Screen (a \\T\\ B) Sent. iw 13:21 Strep Sent. iw 13:21 SARS RAPID Sent. iw 13:21 RSV Sent. iw 14:13 XRAY Chest Pa And Lat (2 Views) In Process Unspecified. EDMS 14:31 Patient has correct armband on for positive identification. Bed in low position. Call db light in reach. Side rails up X 1. Provided Education on: DISCHARGE AND PRESCRIPTIONS. Warm blanket given. Pillow given. 14:31 No provider procedures requiring assistance completed. Patient did not have IV access db during this emergency room visit. Patient maintains SpO2 saturation greater than 95% on room air. Administered Medications: 13:37 Drug: Ibuprofen PO 800 mg PO once Route: PO; db 14:33 Follow up: Response: No adverse reaction db 13:51 Drug: Tessalon Perle PO 200 mg PO once Route: PO; db 14:33 Follow up: Response: No adverse reaction db Medication: 14:31 VIS not applicable for this client. db Outcome: 14:20 Discharge ordered by MD. cp 14:31 Discharged to home ambulatory, db 14:31 Condition: stable 14:31 Discharge instructions given to patient, Instructed on discharge instructions, follow up and referral plans. Prescriptions given X 3, 14:33 Patient left the ED. db Signatures: Dispatcher [employer] EDLavern Olsen RN RN iw Luis Carlos Galicia PA PA cp Moreno, Amanda am2 Shaina Paige RN RN db Corrections: (The following items were deleted from the chart) 12:25 12:23 Arm band placed on Patient placed in an exam room, db db
--- NOTE | 2024-11-02 14:21 | EDPHYS ---
Physician Documentation [facility] Name: Larry Morton Age: 39 yrs Sex: Female : 1985 Arrival Date: 11/02/2024 Time: 11:53 Bed 11 Private MD: ED Physician Aramis Limon HPI: 11/02 13:00 This 39 yrs old Black Female presents to ER via Ambulatory with complaints of Chest cp Congestion, Cough, Fever, General Weakness, Chest Pain. 13:00 The patient or guardian reports cough, flu symptoms, body aches, headache, fever. cp Onset: The symptoms/episode began/occurred yesterday. Associated signs and symptoms: Pertinent positives: chest pain, with cough, sore throat, Pertinent negatives: diarrhea, vomiting. Severity of symptoms: in the emergency department the symptoms are unchanged despite home interventions. 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 - Infectious Disease History:: Denies. - Social history:: Smoking status: Patient denies any tobacco usage or history of. ROS: 13:05 Constitutional: Positive for body aches, chills, fever, cp 13:05 Eyes: Negative for injury, pain, redness, and discharge, cp 13:05 ENT: Positive for sore throat, 13:05 Cardiovascular: Positive for chest pain, with cough, 13:05 Respiratory: Positive for cough, "sounds productive", 13:05 Abdomen/GI: Negative for abdominal pain, nausea, vomiting, and diarrhea, 13:05 Neuro: Positive for headache, Negative for altered mental status, 13:05 All other systems are negative, Exam: 13:10 Constitutional: The patient appears in no acute distress, alert, awake, non-toxic, well cp developed, well nourished, 13:10 Head/Face: Normocephalic, atraumatic. cp 13:10 Eyes: Periorbital structures: appear normal, Conjunctiva: normal, no exudate, no injection, Sclera: no appreciated abnormality, Lids and lashes: appear normal, bilaterally, 13:10 ENT: External ear(s): are unremarkable, Ear canal(s): are normal, clear, TM's: dullness, bilaterally, Nose: is normal, Mouth: Lips: moist, Oral mucosa: moist, Posterior pharynx: Airway: no evidence of obstruction, patent, Tonsils: with erythema, no enlargement, no exudate, erythema, that is mild, 13:10 Neck: ROM/movement: Meningeal signs: are not present, nuchal rigidity, is not appreciated, 13:10 Chest/axilla: Inspection: normal, 13:10 Cardiovascular: Rate: normal, Rhythm: regular, 13:10 Respiratory: the patient does not display signs of respiratory distress, Respirations: normal, no use of accessory muscles, no retractions, labored breathing, is not present, Breath sounds: decreased breath sounds, are not appreciated, stridor, is not appreciated, + upper airway congestion. 13:10 Abdomen/GI: Inspection: abdomen appears normal, Palpation: abdomen is soft and non-tender, in all quadrants, 13:10 Neuro: Orientation: to person, place \\T\\ time. Mentation: is normal, Motor: moves all fours, strength is normal, Vital Signs: 12:22 BP 114 / 68; Pulse 73; Resp 16; Temp 98.5; Pulse Ox 100% ; Height 5 ft. 4 in. ; db 14:31 BP 114 / 68; Pulse 72; Resp 16; Pulse Ox 100% on R/A; db MDM: 12:21 Medical Screening Exam initiated cp 13:00 Differential diagnosis: bronchitis, flu, strep, COVID-19, pneumonia. 14:20 Data reviewed: vital signs, nurses notes, lab test result(s), radiologic studies, plain cp films. 14:20 I considered the following discharge prescriptions or medication management in the emergency department Medications were administered in the Emergency Department. See MAR. Independent interpretation of the following test(s) in the Emergency Department X-Ray: My interpretation is chest images negative for focal pneumonia. Counseling: I had a detailed discussion with the patient and/or guardian regarding the historical points, exam findings, and any diagnostic results supporting the discharge/admit diagnosis, lab results, radiology results, to return to the emergency department if symptoms worsen or persist or if there are any questions or concerns that arise at home. Response to treatment: the patient's symptoms have mildly improved after treatment, and as a result, I will discharge patient. 11/02 12:58 Order name: RSV; Complete Time: 14:19 cp 11/02 12:58 Order name: SARS RAPID; Complete Time: 14:19 cp 11/02 12:58 Order name: Strep cp 11/02 12:58 Order name: Influenza Screen (a \\T\\ B); Complete Time: 14:19 cp 11/02 13:55 Order name: Throat Culture EDVT 11/02 12:58 Order name: XRAY Chest Pa And Lat (2 Views) cp Administered Medications: 13:37 Drug: Ibuprofen PO 800 mg PO once Route: PO; db 14:33 Follow up: Response: No adverse reaction db 13:51 Drug: Tessalon Perle PO 200 mg PO once Route: PO; db 14:33 Follow up: Response: No adverse reaction db Disposition: 11/03 10:13 Co-signature as Attending Physician, Aramis Limon MD I reviewed the patient's care rn provided by the Advanced Practice Provider and agree with the diagnosis and treatment plan. Disposition Summary: 11/02/24 14:20 Discharge Ordered Notes: Location: Home cp Problem: new cp Symptoms: have improved cp Condition: Stable cp Diagnosis - Influenza due to identified novel influenza A virus with other respiratory cp manifestations Followup: cp - With: Private Physician - When: 2 - 3 days - Reason: Worsening of condition Discharge Instructions: - Discharge Summary Sheet cp - Influenza, Adult cp Forms: - Medication Reconciliation Form cp - Antibiotic Education cp - Prescription Opioid Use cp - Patient Portal Instructions cp - Leadership Thank You Letter cp - Work release form db Prescriptions: - Bromfed DM 2-30-10 mg/5 mL Oral syrup - administer 10 milliliter ORAL route every 6 hours as needed for cold symptoms; cp 240 milliliter; Refills: 0, Product Selection Permitted - Ibuprofen 800 mg Oral Tablet - take 1 tablet ORAL route every 8 hours As needed take with food; 30 tablet; cp Refills: 0, Product Selection Permitted - Tamiflu 75 mg Oral Capsule - take 1 capsule ORAL route every 12 hours for 5 days; 10 capsule; Refills: 0, cp Product Selection Permitted Signatures: Dispatcher [employer] Aramis Meyer MD MD rn Page, Corey, PA PA cp Benton, Danielle RN RN db
--- NOTE | 2024-11-02 15:03 | RAD REPORT ---
EXAMINATION: TWO VIEW CHEST XR CLINICAL INDICATION: Female, 39 years old. [facility] MAIN Cough;Fever Bed Name: TECHNIQUE: 2 view radiographs of the chest were performed. COMPARISON: 06/07/2023 FINDINGS: The lungs are well inflated and clear. No pneumothorax or sizable effusion. The heart is normal in si ze. Mediastinal contours are unremarkable. IMPRESSION: No acute or significant abnormalities.
[2024-11-04 16:06] VITALS: BP 114/68; TEMP 98.5; O2SAT 100
== END 2024-11-02 14:33 | disposition home or self-care (01) ==
LOC: ER 11:53
DX: J09.X2 Influenza due to identified novel influenza A virus with other respiratory manifestations (principal); E78.00 Pure hypercholesterolemia, unspecified; Z11.52 Encounter for screening for COVID-19; Z86.73 Personal history of transient ischemic attack (TIA), and cerebral infarction without residual deficits
CPT/HCPCS: 36415; 71046; 87070; 87081; 87804; 87807; 87811; 99283

== ENCOUNTER 2024-12-17 00:24 | Emergency (ER) | payer BC ==
--- OUTSIDE RECORDS SUMMARY | 2024-12-17 00:30 | XMS REPORT | Continuity of Care Document ---
Author Name Unknown Address [address] [facility] [address] [place] [address] [facility] Address [address] [facility] [address] [place] [address] Care Team Providers Care Superintendent Operations Division Name Role Phone Lola Goldstein Primary Care Physician [phone] Steve Restrepo PA-C Attending Clinician [phone] LOLA BAPTISTE Attending Clinician Unavailable Doctor Unassigned, [place] Attending Clinician U LEANDRA Soriano Attending Clinician Unavailable JESSICA TOBAR Attending Clinician UnavailLeandra Jang MD Attending Clinician [phone] Lola Goldstein Attending Clinician [phone] Lab, Ang - Db Attending Clinician Unavailable STEVE RESTREPO Attending Clinician Unavailable Myke Whitehead MD Attending Clinician [phone] Leandra Biggs MD Attending Clinician [phone] NI CASSIDY Attending Clinician NI Bynum Attending Clinician MARGARITO Ye Attending Clinician UnavailMARGARITO Hill Attending Clinician UnavailLola Peterson Attending Clinician [phone] Lab, Ang - Db Attending Clinician Unavailable Doctor Unassigned, [place] Attending Clinician U MITZI Christian Attending Clinician Unavailable Mitzi Mcbride MD Attending Clinician [phone] Sheryl Wooten PA-C Attending Clinician [phone] MITZI MCBRIDE Admitting Clinician Unavailable Payers Payer Name Policy Type Policy Number Effective Date Expirati on Date Source PHCS GENERIC [id number] 2022 00:00:00 2022-10 00:00:00 Problems Condition Name Condition Details Condition Category Status Onset Date Resolution Date Last Treatment Date Treating Clinician Comments Source Vitamin D deficiency Vitamin D deficiency Disease Active 07-09 [facility] Obesity (BMI 30.0-34.9) Obesity (BMI 30.0-34.9) Disease Active 07-09 00:00: 00 [facility] Status post gastric bypass for obesity Status post gastric bypass for obesity Disease Active 07-09 00:00: 00 [facility] NSVT (nonsustai faith ventricula r tachycardi a) NSVT (nonsustai faith ventricula r tachycardi a) Disease Active 05-07 00:00: 00 [facility] PFO (patent foramen ovale) PFO (patent foramen ovale) Disease Active 05-07 00:00: 00 [facility] Obesity due to excess calories, unspecifie d classifica tion, unspecifie d whether serious comorbidit y present Obesity due to excess calories, unspecifie d classifica tion, unspecifie d whether serious comorbidit y present Disease Active 03-09 00:00: 00 [facility] Obesity due to excess calories, unspecifie d classifica tion, unspecifie d whether serious comorbidit y present Obesity due to excess calories, unspecifie d classifica tion, unspecifie d whether serious comorbidit y present Disease Active 03-09 00:00: 00 [facility] Orthostati c hypotensio n Orthostati c hypotensio n Disease Active 03-09 00:00: 00 [facility] Obesity (BMI 30-39.9) Obesity (BMI 30-39.9) Disease Active 03-09 00:00: 00 [facility] History of transient ischemic attack (TIA) History of transient ischemic attack (TIA) Disease Active 03-09 00:00: 00 [facility] Dizziness and giddiness Dizziness and giddiness Disease Active 03-09 00:00: 00 [facility] Sinus bradycardi a Sinus bradycardi a Disease Active 03-09 00:00: 00 [facility] Allergies, Adverse Reactions, Alerts Allergy Name Allergy Type Status Severity Reaction(s) Onset Date Inactive Date Treating Clinician Comments Source NO KNOWN ALLERGIE S Drug Class Active [facility] Social History Social Habit Start Date Stop Date Quantity Comments Source Gender identity 2024-01-12 09:02:59 Identifies as female gender (finding[facility] History SDOH Alcohol Std Drinks [facility] History SDOH Alcohol Binge [facility] Alcoholic beverage intake 2024-10-03 00:00:00 2024-10-03 00:00:00 Ex-drinker (finding) [facility] Alcohol intake 2023-07-09 00:00:00 2023-07-09 00:00:00 Ex-drinker (finding) [facility] Tobacco use and exposure 2023-05-07 00:00:00 2023-05-07 00:00:00 Smokeless tobacco non-user [facility] History of Social function 2023-04-10 00:00:00 2023-04-10 00:00:00 [facility] Exposure to SARS-CoV-2 (event) 2023-02-27 00:00:00 2023-03-09 08:25:00 Not sure [facility] History SDOH Alcohol Frequency 2019-07-02 00:00:00 2019-07-02 00:00:00 1 [facility] Sex assigned at 1985 00:00:00 1985 00:00:00 [facility] Smoking Status Start Date Stop Date Source Never smoked tobacco [facility] Medications Ordered Medication Name Filled Medication Name Start Date Stop Date Current Medication? Ordering Clinician Indication Dosage Frequency Signature (SIG) Comments Components Source midodrine 2.5 mg tablet 2023-10 2-31 00:00: 00 11-06 05:59 :00 Yes [id number] 2.5mg Take 1 tablet by mouth in the morning and 1 tablet at noon and 1 tablet in the evening. Do all this for 15 days. [facility] ferrous sulfate 325 mg (65 mg iron) EC tablet 2023-10 2- 00:00: 00 Yes [id number] 325mg Take 1 tablet by mouth in the morning and 1 tablet at noon and 1 tablet in the evening. Take with meals. [facility] ferrous sulfate 325 mg (65 mg iron) EC tablet 2023-10 2 00:00: 00 10-13 00:00 :00 No [id number] 325mg Take 1 tablet by mouth in the morning and 1 tablet at noon and 1 tablet in the evening. Take with meals. [facility] atorvastati n (Lipitor) 40 MG tablet atorvastati n (Lipitor) 40 MG tablet 7-13 00:00: 00 Yes 40mg TAKE 1 TABLET BY MOUTH EVERYDAY AT BEDTIME [facility] midodrine 2.5 mg tablet 5-20 00:00: 00 10-13 00:00 :00 No [id number] 2.5mg Take 1 tablet by mouth in the morning and 1 tablet at noon and 1 tablet in the evening. [facility] midodrine 2.5 mg tablet 07-13 00:00: 00 03-10 00:00 :00 No [id number] 2.5mg Take 1 tablet by mouth in the morning and 1 tablet at noon and 1 tablet in the evening. [facility] ferrous sulfate (IRON) 325 mg (65 mg iron) tablet 07-09 13:10: 09 07-09 00:00 :00 No 325mg Take 1 tablet by mouth in the morning and 1 tablet at noon and 1 tablet in the evening. Take with meals. [facility] foLIC acid 1 mg tablet 07-09 13:09: 20 Yes 1mg Take 1 tablet by mouth in the morning. [facility] midodrine 2.5 mg tablet 06-29 00:00: 00 07-13 00:00 :00 No [id number] 2.5mg Take 1 tablet by mouth in the morning and 1 tablet at noon and 1 tablet in the evening. [facility] foLIC acid 1 mg tablet 06-22 06:59: 44 Yes 1mg Take 1 tablet by mouth in the morning. [facility] ferrous sulfate (IRON) 325 mg (65 mg iron) tablet 06-22 06:59: 44 Yes 325mg Take 1 tablet by mouth in the morning and 1 tablet at noon and 1 tablet in the evening. Take with meals. [facility] midodrine 2.5 mg tablet 05-31 00:00: 00 06-29 00:00 :00 No [id number] 2.5mg Take 1 tablet by mouth in the morning and 1 tablet at noon and 1 tablet in the evening. [facility] midodrine 2.5 mg tablet 17 00:00: 00 05-31 00:00 :00 No [id number] 2.5mg Take 1 tablet by mouth in the morning and 1 tablet at noon and 1 tablet in the evening. [facility] foLIC acid 1 mg tablet 03-09 08:45: 47 Yes 1mg Take 1 tablet by mouth in the morning. [facility] ferrous sulfate (IRON) 325 mg (65 mg iron) tablet 03-09 08:45: 47 Yes 325mg Take 1 tablet by mouth in the morning and 1 tablet at noon and 1 tablet in the evening. Take with meals. [facility] aspirin 81 mg EC tablet 504 00:00: 00 Yes 81mg Take 1 tablet by mouth in the morning. [facility] atorvastati n 40 mg tablet 4-27 00:00: 00 Yes 40mg Take 1 tablet by mouth at bedtime. [facility] ibuprofen (MOTRIN) 600 mg tablet 05-02 00:00: 00 07-09 00:00 :00 No 600mg Take 1 tablet by mouth every 6 (six) hours as needed for Pain (scale 4-6). [facility] Immunizations Ordered Immunization Name Filled Immunization Name Date Status Comments Source SARS-COV-2 COVID-19 PFIZER VACCINE 2021-05-14 00:00:00 Completed [facility] SARS-COV-2 COVID-19 PFIZER VACCINE 2021-05-14 00:00:00 Completed SARS-COV-2 COVID-19 PFIZER VACCINE 2021-04-22 00:00:00 Completed [facility] SARS-COV-2 COVID-19 PFIZER VACCINE 2021-04-22 00:00:00 Completed SARS-COV-2 COVID-19 PFIZER VACCINE Unknown Completed [facility] SARS-COV-2 COVID-19 PFIZER VACCINE Unknown Completed [facility] SARS-COV-2 COVID-19 PFIZER VACCINE Unknown Completed [facility] SARS-COV-2 COVID-19 PFIZER VACCINE Unknown Completed [facility] SARS-COV-2 COVID-19 PFIZER VACCINE Unknown Completed [facility] SARS-COV-2 COVID-19 PFIZER VACCINE Unknown Completed [facility] SARS-COV-2 COVID-19 PFIZER VACCINE Unknown Completed [facility] SARS-COV-2 COVID-19 PFIZER VACCINE Unknown Completed [facility] Vital Signs Vital Name Observation Time Observation Value Comments S ource Systolic blood pressure 2024-10-03 15:41:00 105 mm[Hg] [facility] Diastolic blood pressure 2024-10-03 15:41:00 54 mm[Hg] [facility] Heart rate 2024-10-03 15:41:00 70 /min [facility] Body temperature 2024-10-03 15:41:00 37 Wen [facility] Body height 2024-10-03 15:41:[address] [facility] Body weight 2024-10-03 15:41:[address] [facility] BMI 2024-10-03 15:41:00 31.58 kg/m2 [facility] Oxygen saturation in Arterial blood by Pulse oximetry 2024-10-03 15:41:00 100 /min [facility] Systolic blood pressure 2023-07-09 18:10:00 104 mm[Hg] [facility] Diastolic blood pressure 2023-07-09 18:10:00 67 mm[Hg] [facility] Heart rate 2023-07-09 18:10:00 65 /min [facility] Body height 2023-07-09 18:10:00 162.6 cm [facility] 2023-07-09 18:10:[address] [facility] BMI 2023-07-09 18:10:00 33.81 kg/m2 [facility] Oxygen saturation in Arterial blood by Pulse oximetry 2023-07-09 18:10:00 100 /min [facility] Body height 2023-06-22 13:51:[address] [facility] Body weight 2023-06-22 13:51:[address] [facility] BMI 2023-06-22 13:51:00 32.61 kg/m2 [facility] Systolic blood pressure 2023-06-22 13:15:00 121 mm[Hg] [facility] Diastolic blood pressure 2023-06-22 13:15:00 72 mm[Hg] [facility] Heart rate 2023-06-22 13:15:00 60 /min [facility] Respiratory rate 2023-06-22 13:15:00 21 /min [facility] Oxygen saturation in Arterial blood by Pulse oximetry 2023-06-22 13:15:00 100 /min [facility] Body temperature 2023-06-22 12:05:00 36.61 Wen [facility] Systolic blood pressure 2023-06-16 03:00:00 103 mm[Hg] [facility] Diastolic blood pressure 2023-06-16 03:00:00 61 mm[Hg] [facility] Heart rate 2023-06-16 03:00:00 72 /min [facility] Respiratory rate 2023-06-16 03:00:00 16 /min [facility] Oxygen saturation in Arterial blood by Pulse oximetry 2023-06-16 03:00:00 98 /min [facility] Body temperature 2023-06-15 23:57:00 37.22 Wen [facility] Body height 2023-06-15 23:57:00 162.6 cm [facility] Body weight 2023-06-15 23:57:00 86.183 kg [facility] BMI 2023-06-15 23:57:00 32.61 kg/m2 [facility] Systolic blood pressure 2023-05-07 19:25:00 107 mm[Hg] [facility] Diastolic blood pressure 2023-05-07 19:25:00 70 mm[Hg] [facility] Heart rate 2023-05-07 19:25:00 54 /min [facility] Respiratory rate 2023-05-07 19:25:00 16 /min [facility] Body height 2023-05-07 19:25:[address] [facility] Body weight 2023-05-07 19:25:[address] [facility] BMI 2023-05-07 19:25:00 32.77 kg/m2 [facility] Oxygen saturation in Arterial blood by Pulse oximetry 2023-05-07 19:25:00 98 /min [facility] Systolic blood pressure 2023-03-09 13:52:00 110 mm[Hg] [facility] Diastolic blood pressure 2023-03-09 13:52:00 68 mm[Hg] [facility] Heart rate 2023-03-09 13:52:00 71 /min [facility] Body height 2023-03-09 13:52:[address] [facility] Body weight 2023-03-09 13:52:[address] [facility] BMI 2023-03-09 13:52:00 32.53 kg/m2 [facility] Oxygen saturation in Arterial blood by Pulse oximetry 2023-03-09 13:52:00 99 /min [facility] Systolic blood pressure 2019-07-02 20:30:00 137 mm[Hg] [place] [facility] Diastolic blood pressure 2019-07-02 20:30:00 91 mm[Hg] [place] [facility] Heart rate 2019-07-02 20:30:00 90 /min [facility] Body temperature 2019-07-02 20:30:00 36.83 Wen [facility] Respiratory rate 2019-07-02 20:30:00 18 /min [facility] Body height 2019-07-02 20:30:[address] [facility] Body weight 2019-07-02 20:30:[address] [facility] BMI 2019-07-02 20:30:00 58.70 kg/m2 [facility] Procedures Procedure Date / Time Performed Performing Clinician Source IRON PANEL 2024-10-03 16:10:[address] [facility] CBC WITH DIFF 2024-10-03 16:10:00 [facility] MEDICAL RELEASE/CLEARANCE FORMS 2023-07-11 05:01:00 Doctor Unassigned, [place] [facility] TRANSESOPHAGEAL ECHO (JAYNA) COMPLETE W/ DOPPLER AND COLOR 2023-06-22 12:39:00 Leandra Biggs [facility] TRANSESOPHAGEAL ECHO 2023-06-22 05:01:00 Doctor Unassigned, [place] [facility] CT HEAD WO CONTRAST 2023-06-16 02:18:15 Mitzi Mcbride [facility] TROPONIN I 2023-06-16 01:41:[address] [facility] COMP. METABOLIC PANEL ([id number]) 2023-06-16 01:41:00 Mitzi Mcbride [facility] CBC WITH DIFF 2023-06-16 01:41:00 Mitzi Mcbride [facility] N-TERMINAL PRO-BNP 2023-06-16 01:41:00 Mitzi Mcbride [facility] POCT TEST 2023-06-16 01:31:00 Mitzi Mcbride [facility] URINALYSIS 2023-06-16 01:29:[address] [facility] INSURANCE CORRESPONDENCE 2023-04-20 05:01:00 Doc tor Unassigned, [place] [facility] PHYSICIAN CERTIFICATION STATEMENT 2023-04-07 05:01:00 Doctor Unassigned, [place] [facility] HB ECG ROUTINE & RHYTHM STRIP 2023-03-09 13:49:18 Leandra Biggs [facility] CONSENT/REFUSAL FOR DIAGNOSIS AND TREATMENT 2023-03-09 13:26:58 Doctor Unassigned, [place] [facility] REFERRAL- REQUEST/RESPONSE 2023-03-01 05:01:00 D cameronor Unassigned, [place] [facility] Encounters Start Date/Time End Date/Time Encounter Type Admission Type Attending [facility] Care Facility Care Department Encounter ID Source 2024-10-03 00:00:00 2024-12-03 15:49:21 Telephone [facility] 1.2.840.114 350.1.13.10 4.2.7.2.686 [id number] [facility] 2024-11-25 15:30:00 2024-11-25 15:30:00 Outpatient LOLA ESPINOZA [facility] [id number] [facility] 2024-10-10 00:00:00 2024-11-15 18:18:32 Patient Secure Msg Doctor Unassigned, [place] Doctor Unassigned, [place] [facility] 1.2.840.114 350.1.13.10 4.2.7.2.686 [id number] [facility] 2024-11-03 11:00:00 2024-11-03 11:00:00 Outpatient LEANDRA KNIGHT [facility] [id number] [facility] 2024-10-23 09:00:00 2024-10-23 09:00:00 Outpatient JESSICA JONES [facility] [id number] [facility] 2024-10-13 00:00:00 2024-10-21 17:04:[address] [facility] PROFESSIO NAL BUILDING 1.2.840.114 350.1.13.10 4.2.7.2.686 [id number] [facility] 2024-10-21 14:00:00 2024-10-21 14:00:00 Outpatient R DIAN LEANDRA [facility] [id number] [facility] 2024-10-13 00:00:00 2024-10-20 15:33:00 Patient Secure Steve Stone [facility] BU[facility] 1.2.840.114 350.1.13.10 4.2.7.2.686 [id number] [facility] 2024-10-13 00:00:00 2024-10-17 08:19:52 Refill Lauro Steve [facility] 1.2.840.114 350.1.13.10 4.2.7.2.686 [id number] [facility] 2024-10-13 00:00:00 2024-10-13 08:42:53 Telephone Lola Baptiste [facility] 1.2.840.114 350.1.13.10 4.2.7.2.686 [id number] [facility] 2024-10-03 00:00:00 2024-10-03 11:38:17 Telephone Steve Restrepo [facility] 1.2.840.114 350.1.13.10 4.2.7.2.686 [id number] [facility] 2024-10-03 11:15:00 2024-10-03 11:15:00 Design Assembler Visit Lab, Steve Lomas Lab, Otto Silva [facility] MED[facility] OFF[facility] BUILD[facility] 1.2.840.114 350.1.13.10 4.2.7.2.686 [id number] [facility] 2024-10-03 10:30:00 2024-10-03 10:30:00 Office Visit Katelyn Restrepon [facility] MED[facility] OFF[facility] BUILD[facility] 1.2.840.114 350.1.13.10 4.2.7.2.686 [id number] [facility] 2024-10-03 10:30:00 2024-10-03 10:05:21 Outpatient R STEVE RESTREPO [facility] [id number] [facility] 2024-05-03 00:00:00 2024-05-03 13:50:13 Refill Myke Whitehead 1.2.840.114 350.1.13.70 8.2.7.2.686 [id number] [facility] 2024-04-03 14:00:00 2024-04-03 14:00:00 Outpatient LOLA ESPINOZA [facility] [id number] [facility] 2024-03-10 00:00:00 2024-03-31 13:31:05 RefLeandra Castellanos [facility] NAL BUILDING 1.2.840.114 350.1.13.10 4.2.7.2.686 [id number] [facility] 2024-03-11 09:30:00 2024-03-11 09:30:00 Outpatient NI HANDLEY MARISOL [facility] [id number] [facility] 2024-03-10 10:02:18 2024-03-10 10:02:18 Outpatient KARLEY CRANDALL [id number] 2023-08-13 15:30:00 2023-08-13 15:30:00 Outpatient R MARGARITO CORONADO CHERYAL [facility] [id number] [facility] 2023-07-13 00:00:00 2023-07-13 00:00:[facility] 1.2.840.114 350.1.13.10 4.2.7.2.686 [id number] [facility] 2023-07-12 00:00:00 2023-07-12 00:00:00 Patient Secure Msg [facility] BU[facility] 1.284.114 350.1.13.10 4.2.7.2.686 [id number] [facility] 2023-07-12 00:00:00 2023-07-12 00:00:00 Patient Secure Msg Baptiste [facility] [place] MED[facility] OFFICE BUILDING 1.2.840.114 350.1.13.10 4.2.7.2.686 [id number] [facility] 2023-07-11 16:30:00 2023-07-11 16:52:09 [facility] [id number] [facility] 2023-07-11 16:30:00 2023-07-11 16:45:00 Design Assembler Visit Lab, Otto Silva Oliva [facility] MEDICAL OFFICE BUILDING 1.284.114 350.1.13.10 4.2.7.2.686 [id number] [facility] 2023-07-11 00:00:00 2023-07-11 00:00:00 Telephone DianLeandra [facility] BU[facility] 1.2.840.114 350.1.13.10 4.2.7.2.686 [id number] [facility] 2023-07-11 00:00:00 2023-07-11 00:00:00 Orders Only Doctor Unassigned, [place] [facility] 1.284.114 350.1.13.10 4.2.7.2.686 [id number] [facility] 2023-07-09 13:00:00 2023-07-09 15:42:52 Outpatient R CARYNRICH LOLA [facility] [id number] [facility] 2023-07-09 13:00:00 2023-07-09 13:30:00 [facility] 1.284.114 350.1.13.10 4.2.7.2.686 [id number] [facility] 2023-07-02 09:00:00 2023-07-02 09:00:00 Outpatient Delores BAPTISTEMICHELLELOLA [facility] [id number] [facility] 2023-06-29 00:00:00 2023-06-29 00:00:00 Refill Dian [facility] BUILDING 1.84.114 350.1.13.10 4.2.7.2.686 [id number] [facility] 2023-06-27 00:00:00 2023-06-27 00:00:00 Telephone Dian [facility] BUILDING 1.84.114 350.1.13.10 4.2.7.2.686 [id number] [facility] 2023-06-27 00:00:00 2023-06-27 00:00:00 [facility] 1.284.114 350.1.13.10 4.2.7.2.686 [id number] [facility] 2023-06-27 00:00:00 2023-06-27 00:00:00 Telephone D[facility] BUILDING 1..840.114 350.1.13.10 4.2.7.2.686 [id number] [facility] 2023-06-22 06:48:53 2023-06-22 23:59:[address] [facility] [id number] [facility] 2023-06-22 06:48:53 2023-06-22 23:59:[address] [facility] 1..840.114 350.1.13.10 4.2.7.2.686 [id number] [facility] 2023-06-19 13:40:00 2023-06-19 13:40:[address] [facility] [id number] [facility] 2023-06-15 18:59:00 2023-06-15 23:24:00 Emergency X MITZI MCBRIDE [facility] ERT [id number] [facility] 2023-06-15 18:59:00 2023-06-15 23:24:00 Emergency Mitzi Mcbride [facility] 1..840.114 350.1.13.10 4.2.7.2.686 [id number] [facility] 2023-06-05 00:00:00 2023-06-05 00:00:[address] [facility] [id number] [facility] 2023-06-04 00:00:00 2023-06-04 00:00:00 Telephone Dian [facility] BUILDING 1..840.114 350.1.13.10 4.2.7.2.686 [id number] [facility] 2023-05-30 00:00:00 2023-05-30 00:00:00 [facility] 1.2.840.114 350.1.13.10 4.2.7.2.686 [id number] [facility] 2023-05-11 00:00:00 2023-05-11 00:00:00 [facility] 1.2.840.114 350.1.13.10 4.2.7.2.686 [id number] [facility] 2023-05-07 14:20:00 2023-05-07 14:40:00 [facility] 1.2.840.114 350.1.13.10 4.2.7.2.686 [id number] [facility] 2023-05-07 14:20:00 2023-05-07 14:20:00 [id number] 2023-05-01 00:00:00 2023-05-01 00:00:00 Patient Secure Msg Dian [facility] 1.2.840.114 350.1.13.10 4.2.7.2.686 [id number] [facility] 2023-04-27 00:00:00 2023-04-27 00:00:00 Telephone Dian [facility] 1.2.840.114 350.1.13.10 4.2.7.2.686 [id number] [facility] 2023-04-20 00:00:00 2023-04-20 00:00:00 [facility] 1.2.840.114 350.1.13.10 4.2.7.2.686 [id number] [facility] 2023-04-20 00:00:00 2023-04-20 00:00:00 Orders Only Doctor Unassigned, [place] [facility] 1.2.840.114 350.1.13.10 4.2.7.2.686 [id number] [facility] 2023-04-13 00:00:00 2023-04-13 00:00:00 [facility] 1.2.840.114 350.1.13.10 4.2.7.2.686 [id number] [id number] [facility] 2023-04-07 00:00:00 2023-04-07 00:00:00 Orders Only Doctor Unassigned, [place] [facility] 1.2.840.114 350.1.13.10 4.2.7.2.686 [id number] [id number] [facility] 2023-04-05 00:00:00 2023-04-05 00:00:00 Telephone Dian [facility] 1.2.840.114 350.1.13.10 4.2.7.2.686 [id number] [id number] [facility] 2023-03-30 00:00:00 2023-03-30 00:00:00 [facility] 1.2.840.114 350.1.13.10 4.2.7.2.686 [id number] [facility] 2023-03-29 15:01:56 2023-03-29 23:59:00 [id number] 2023-03-13 00:00:00 2023-03-13 00[facility]00[facility] 1.2.840.114 350.1.13.10 4.2.7.2.686 [id number] [id number] [facility] 2023-03-09 09:40:00 2023-03-09 09:40:00 [facility] 1.2.840.114 350.1.13.10 4.2.7.2.686 [id number] 059 [id number] [facility] 2023-03-09 09:40:00 2023-03-09 09:16:01 [facility] [id number] [facility] 2023-03-09 00:00:00 2023-03-09 00:00:00 Orders Only Doctor Unassigned, [place] [facility] 1.2.840.114 350.1.13.10 4.2.7.2.686 [id number] [facility] 2023-03-08 13:57:51 2023-03-08 13:57:51 Outpatient [facility] [id number] 2023-03-01 09:56:01 2023-03-01 09:56:01 Outpatient [facility] [id number] 2023-03-01 00:00:00 2023-03-01 00:00:00 Orders Only Doctor Unassigned, [place] [facility] 1.2.840.114 350.1.13.10 4.2.7.2.686 [id number] [facility] 2023-02-22 10:00:22 2023-02-22 10:00:22 Outpatient [facility] [id number] [address] 2023-02-16 14:11:58 2023-02-16 14:11:58 Outpatient [facility] [id number] [address] 2019-07-08 00:00:00 2019-07-08 00:00:00 Case Management Sheryl Wooten [facility] 1.2.840.114 350.1.13.10 4.2.7.2.686 [id number] [facility] 2019-07-02 15:20:19 2019-07-02 15:54:38 Office Visit Sheryl Wooten [facility] 1.2.840.114 350.1.13.10 4.2.7.2.686 [id number] [facility] Results Test Description Test Time Test Comments Results Result Co mments Source [facility] [id number] 21:30:08* Test Item Value Reference Range Interpretation Comme nts IRON (test code = 4162427191) 31 ug/dL 50-160 L TIBC (test code = 1694039193) 468 ug/dL 250-410 H % FE SAT (test code = 2227077372) 7 % 20-50 L Lab Interpretation (test cod e = 20689-6) Abnormal [facility] (JAYNA)2023-06-22 19:13:01 * Test Item Value Reference Range Interpretation Comme nts Height (test code = 5147914573) 54 in Weight (test code = 0685703370) 190 lbs Systolic BP (test code = 2081342883) 118 mmHg Diastolic BP (test code = 9011217321) 73 mmHg Heart Rate (test code = 4847168510) 58 bpm Radiology Study observation (narrative) (test code = 14555-7) MIRACLE (test code = MIRACLE) ?Left?Ventricle: Left [...] shunt. The probe was inserted by the money examiner. There was no probe insertion difficulty.There were 1 attempts to insert the probe. Probe in 730. Probe out 739. Sedation and monitoring provided by anesthesia, see Epic documentation. 4% Lidocaine was used for local oropharyngeal anesthesia. There were no complications during the procedure. [facility] HospitalJUAN FRANCISCO [id number] 02:33:33* Test Item Value Reference Range Interpretation Comme nts TROPONIN I (test code = 3959087880) <=0.034 MIRACLE (test code = MIRACLE) Reference [...] of biotin. Lab Interpretation (test code = 90170-2) Normal [facility] WITH [id number] 02:33:12* Test Item Value Reference Range Interpretation Comme nts WBC (test code = 6690-2) 5.61 See_Comment [Automated Benaissancea ge] The system which generated this result transmitted reference range: 4.30 - 11.10 10*3/?L. The reference range was not used to interpret this result as normal/abnormal. RBC (test code = 789-8) 4.17 See_Comment [Automated [employer]aissance[employer] ge] The system which generated this result [...] 33.3 g/dL 31.6-35.1 RDW-SD (test code = 59660-6) 51.8 fL 39.0-49.9 H RDW-CV (test code = 788-0) 15.6 % 12.0-15.5 H PLT (test code = 777-3) 209 See_Comment [Automated [employer]aissancea ge] The system which generated this result transmitted reference range: 166 - 358 10*3/?L. The reference range was not used to interpret this result as normal/abnormal. MPV (test code = 32064-4) 11.8 fL 9.5-12.9 NRBC/100 WBC (test code = 1460458543) 0.0 See_Comment [Automated Akampus ssage] The system which generated this result transmitted reference range: 0.0 - 10.0 /100 WBCs. The reference range was not used to interpret this result as normal/abnormal. NRBC x10^3 (test code = 8965100427) See_Comment [Automated messa ge] The system which generated this result transmitted reference range: 10*3/?L. The reference range was not used to interpret this result as normal/abnormal. GRAN MAT (NEUT) % (test code = 770-8) 49.0 % IMM GRAN % (test code = 8685379113) 0.20 % LYMPH % (test code = 736-9) 38.3 % MONO % (test code = 5905-5) 10.5 % EOS % (test code = 713-8) 0.9 % BASO % (test code = 706-2) 1.1 % GRAN MAT x10^3(ANC) (test code = 9437210564) 2.75 10*3/uL 1.88-7.09 IMM GRAN x10^3 (test code = 9426892262) 0.00-0.06 LYMPH x10^3 (test code = 731-0) 2.15 10*3/uL 1.32-3.29 MONO x10^3 (test code = 742-7) 0.59 10*3/uL 0.33-0.92 EOS x10^3 (test code = 711-2) 0.05 10*3/uL 0.03-0.39 BASO x10^3 (test code = 704-7) 0.06 10*3/uL 0.01-0.07 Lab Interpretation (test code = 16652-3) Abnormal [facility] Hospital[facility]-TERMINAL [id number] 02:31:11* Test Item Value Reference Range Interpretation Comme nts NT-proBNP (test code = 92006-0) 41 pg/mL <=125 Lab Interpretation (test cod e = 74608-4) Normal [facility] HospitalCOMP. METABOLIC PANEL (90171)2023-06-16 02:22:09* Test Item Value Reference Range Interpretation Comme nts NA (test code = 2902317736) 140 mmol/L 135-145 K (test code = 0744783099) 4.7 mmol/L 3.5-5.0 CL (test code = 2707253053) 108 mmol/L 98-108 CO2 TOTAL (test code = 0331429203) 24 mmol/L 23-31 AGAP (test code = 7707147399) 8 2-16 BUN (test code = 9908890313) 11 mg/dL 7-23 GLUCOSE (test code = 4068633912) 70 mg/dL 70-110 CREATININE (test code = 8478625612) 0.65 mg/dL 0.50-1.04 TOTAL BILI (test code = 5547928639) 0.2 mg/dL 0.1-1.1 CALCIUM (test code = 0002319460) 8.8 mg/dL 8.6-10.6 T PROTEIN (test code = 5943290903) 7.3 g/dL 6.3-8.2 ALBUMIN (test code = 8874157956) 4.2 g/dL 3.5-5.0 ALK PHOS (test code = 7082168188) 49 U/L 34-122 ALTv (test code = 1742-6) 60 U/L 5-35 H AST(SGOT) (test code = 4544617418) 43 U/L 13-40 H eGFR (test code = 6954436515) 103.1 mL/min/1.73m2 MIRACLE (test code = MIRACLE) [...] imaging tests). Lab Interpretation (test code = 09319-9) Abnormal [facility] HospitalPO[facility] [id number] 01:31:00* Test Item Value Reference Range Interpretation Comme nts POCT PREG (test code = 1605) Negative On board controls acceptable with C Line (test code = 3574) Yes POCT PREG LOT # (test code = 3575) [id number] POCT PREG TEST DATE ( test code = 3576) Lab Interpretation (test cod e = 12135-3) Normal [facility] HospitalOCCULT BLD,FECAL,IMMUNOASSAY [id number] 11:20:54* Test Item Value Reference Range Interpretation Comme [facility] OCCULT BLD, FECAL (test code = 27906) NEGATIVE NEGATIVE UNLESS OTHER PERRY INDICATED, ALL TESTING PERFORMED AT [facility] [address] [place] [address] HELIARC WELDER: KATELYN GOMEZ M.D. CLIA NUMBER [id number] [place]. [id number] PATHOLOGIST SMEAR [id number] 13:20:44* Test Item Value Reference Range Interpretation Comme [facility] DIAGNOSIS: (test code = 8200) (NOTE) PERIPHERAL [...] (NOTE) Katelyn Gomez M.D. (electronically signed) Diplomate, [place] [employer] with Subspecialty Certification, Hematology CPT: (test code = 8400) 80785 WBC (test code = 1001) 4.1 K/UL [...] 0.00-0.10 ABS NUCLEATED RBCS (test code = 55125) 0.00 K/UL 0.00-0.11 COMMENTS (test code = 1016) (NOTE) MARKED ANISOCYTO SIS FEW ELLIPTOCYTES MODERATE HYPOCHROMASIA SLIGHT MICROCYTOSIS SLIGHT POIKILOCYTOSIS SLIGHT POLYCHROMASIA FEW TEAR DROP CELLS PLATELETS APPEAR INCREASED UNLESS OTHERWISE INDICATED, ALL TESTING PERFORMED AT [facility] [address] [place] [id number] HELIARC WELDER: KATELYN GOMEZ M.D. CLIA NUMBER [id number] [facility]. [id number] HAPTOGLOBIN, [id number] 13:10:19* Test Item Value Reference Range Interpretation Comme nts HAPTOGLOBIN, QUANT (test cod e = 82357) 78 MG/DL 32-197 [id number] 07:59:28* Test Item Value Reference Range Interpretation Comme nts LDH (test code = 2224) 178 U/L 135-214 CBC W/AUTO DIFF WITH [id number] 23:14:06* Test Item Value Reference Range Interpretation [...] 0.00-0.10 ABS NUCLEATED RBCS (test code = 46830) 0.00 K/UL 0.00-0.11 COMMENTS (test code = 1016) (NOTE) MODERATE ANISOCY TOSIS MARKED HYPOCHROMASIA SLIGHT MICROCYTOSIS SLIGHT POLYCHROMASIA FEW SCHISTOCYTES PLATELETS APPEAR INCREASED RETICULOCYTE WITH [id number] 23:14:06* Test Item Value Reference Range Interpretation Comme [facility] RETICULOCYTE COUNT (test cod e = 1018) 3.68 % 0.80-2.40 H ABSOLUTE RETICULOCYTE (test code = 62956) 131.0 K/UL 32.0-105.0 H [id number] 04:46:23* Test Item Value Reference Range Interpretation Comme [facility] FERRITIN (test code = 2075) 114 NG/ML 13-200 VITAMIN B 12 AND FOLIC [id number] 04:46:23* Test Item Value Reference Range Interpretation Comme [facility] VITAMIN B-12 (test [...] IRON BINDING CAPACITY AND IRON AND % [id number] 23:59:13* Test Item Value Reference Range Interpretation Comme nts IRON, SERUM (test code = 2222) 25 UG/DL 37-145 L UNSATURATED IBC (test code = 36491) 445 UG/DL 112-347 H CALC TOTAL IBC (test code = 2077) 470 UG/DL 250-450 H CALC % IRON SAT (test code = 2079) 5 % 20-50 L [id number] 23:58:52* Test Item Value Reference Range Interpretation Comme nts TRANSFERRIN (test code = 4936) 377 MG/DL 200-360 H [id number] 23:58:52* Test Item Value Reference Range Interpretation Comme nts HOMOCYSTEINE (test code = 4288) 15 UMOL/L <12 H UNLESS OTHERWISE INDICATED, ALL TESTING PERFORMED AT [facility] [address] [place] [address] HELIARC WELDER: KATELYN GOMEZ M.D. CLIA NUMBER [id number] [facility] [place]. [id number] MICROSCOPIC [id number] 04:53:02* Test Item Value Reference Range Interpretation Comme nts WHITE BLOOD CELLS (test code = 1513) 0-5 /HPF 0-5 RED BLOOD CELLS (test code = 1514) 0-2 /HPF 0-2 PLEASE NOTE: NEW REFERENCE RANGE EFFECTIVE 23. EPITHELIAL CELLS (test code = 69799) 6-10 /HPF 0-10 BACTERIA (test code = 1515) >3+ NONE SEEN CRYSTALS (test code = 1516) PRESENT NONE SEEN A CALCIUM OXALATE CRYSTALS CASTS, HYALINE (test code = 1517) TRACE NONE-TRACE CBC W/AUTO DIFF WITH [id number] 15:50:45* Test Item Value Reference Range Interpretation [...] 0.00-0.10 ABS NUCLEATED RBCS (test code = 85210) 0.00 K/UL 0.00-0.11 COMMENTS (test code = 1016) (NOTE) MODERATE ANISOCY TOSIS MODERATE HYPOCHROMASIA MODERATE MICROCYTOSIS PLATELETS APPEAR NORMAL TSH, THIRD [id number] 10:17:10* Test Item Value Reference Range Interpretation Comme nts TSH, THIRD GENERATION (test code = 2821) 4.160 UIU/ML 0.400-4.100 H [id number] 08:48:32* Test Item Value Reference Range Interpretation Comme nts NT-proBNP (test code = 40597) <50 PG/ML SEE BELOW If NT-ProBNP is less than 300 PG/ML, heart failure is unlikely for allages. Age.................Heart Failure Likely <50 Years...........>=450 PG/ML 50-75 Years.........>=900 PG/ML > 75 Years..........>=1800 PG/ML Methodology: [place] [employer] Electrochemiluminescense Immunoassay [facility] has important pathology staff changes effective 12/20/2022. New pathology staff will provide uninterrupted, excellent patient care and clinical consultation. See URL: [email or web address]. UNLESS OTHERWISE INDICATED, ALL TESTING PERFORMED AT [facility] [address] [place] [address] HELIARC WELDER: KATELYN GOMEZ M.D. CLIA NUMBER [id number] [facility] [place]. [id number] COMPREHENSIVE METABOLIC [id number] 06:00:01* Test Item Value Reference Range Interpretation Comme nts GLUCOSE (test code = 2217) 85 MG/DL 70-99 BUN (test code = 2208) 7 MG/DL 6-20 CREATININE (test code = 2214) 0.71 MG/DL 0.60-1.30 eGFR (2020 CKD-EPI) (test code = 59009) 113 ML/MIN/1.73 >60 CALC BUN/CREAT (test code [...] as normal/abnormal. ALKALINE PHOSPHATASE (test code = 4) 53 U/L 40-112 AST (test code = 2218) 32 U/L 9-40 ALT (test code = 2219) 31 U/L 5-40 LIPID [id number] 06:00:01* Test Item Value Reference Range Interpretation [...] SPECIMENS. FOR MOREINFORMATION, SEE CLIENT ANNOUNCEMENT AT [email or web address] RISK RATIO LDL/HDL (test code = 2238) 0.82 RATIO <3.22 HEMOGLOBIN [id number] 05:05:23* Test Item Value Reference Range Interpretation Comme nts HEMOGLOBIN A1c (test code = 93977) 5.3 % 4.2-5.6 History and Physical Notes Date/Time Note Provider Source 2023-06-22 07:00:00 Formatting of this n ote might be different from the original. [facility] Echocardiography Lab Out-Patient Transesophageal Echo-Cardiogram IDENTIFYING DATA [...] of drug use. Current Medications: Ms. Morton @[facility]@ Checklist: + Dysphagia, + Esophageal diverticula, + [...] by the nurse. Time out performed. T [facility] Notes Date/Time Note Provider Source 2024-12-03 15:46:44 Access Center: EPIC Open Encounter Maintenance Encounter closed for EPIC maintenance. No activity on this encounter in the past 72 hours. Dorota Ramirez RN, BSN Access Center Triage Nurse [facility] CAL LANGUAGE SPECIALIST Dorota Ramirez RN [facility] 2024-10-21 17:03:52 Appointment 11/03/24 Will send two week supply. I Castellanos RN [facility] 2024-10-17 16:37:23 Refill request for Requested Prescriptions Pending Prescriptions Disp Refills midodrine 2.5 mg tablet 270 tablet 1 Sig: Take 1 tablet by mouth in the morning and 1 tablet at noon and 1 tablet in the evening. NACHO 05/07/2023, patient needs an appointment for refills. [facility] 2024-10-17 09:04:45 We can switch to [facility] 2024-10-13 12:04:25 NACHO 10/03/24 NOV 11/25/24 Labs 10/03/24 RX ferrous sulfate 325 mg (65 mg iron) EC tablet 10/09/24 qty 90 2 refills Please advise [facility] Brinda Monahan MA [facility] 2024-10-03 11:38:06 Done [facility] 2024-10-03 11:35:[address] note on mychart. Patient seen at clinic today, may return to work 12/14/24 CAL LANGUAGE SPECIALIST ALEXEI-PHYSICIAN TOE STAPLER MIDLEVEL PROVIDER [facility] 2024-10-03 11:15:00 Images from the original note were not included. Venipuncture collection performed by clean technique on the right anticubitus. Total of 1 attempts were made. Slight pressure and a bandage/dressing were applied to the site(s). The patient experienced no complications. The following specimens were processed according to instructions and sent to [facility] laboratories per lab order on 10/03/2024 : LT BLUE SST 1 RED LAV 1 PPT DK GREEN (LiHep) DK GREEN (SodH) OSCAR DK BLUE (K2) DK BLUE (S) ACD Blood Culture NIPT/NTD CAL LANGUAGE SPECIALIST [facility] 2024-10-03 10:58:51 Patient is requesting a return to work note be uploaded to My chart [facility]2024-07-13 13:50:23* [place] [address]-09-07 10:55:44 Patient notified Adilene Castellanos RNA[facility] HospitalXojhvx2291-18-96 10:45:48 Letter in EPIC [facility] HospitalAegbvl4050-69-53 10:31:30 Discussed disability with patient, she stated that since everything with her JAYNA came back good shedoes not have a disability. She would like to RTW on 07/03/[address] Biggs Belkis Wilder Counts [facility] 10:19:20 Yesterday we received a disability request. Please verify with the patient what her game plan is. If she is returning to work, what should I say in the disability form? Please describe her degree of disability and duration of disability. [facility] HospitalXtwlqi8319-00-05 14:40:48 Patient is requesting a return to work note dated July 02, 2023. Please send via [employer]. Desirae MoraAvita Health System [facility] HospitalDgeqtl6488-88-37 12:53:46 Supplementary Report of Disability Request received via fax from [facility] and placed in Dr Biggs's folder to be reviewed and signed. Shonda Andrade MADanielle [place] 162263-09-06 09:07:08 Cooper Morton is a 37 year old female Christine calling from [facility] She is wanting to confirm procedures Please call her [phone] Livia GonsalezDanielle Ville 162263-09-01 11:51:15 Spoke with patient , She was able to speak with Colette Swift, all is taken care of Belkis Wilder [place] 470083-08-25 23:23:42 Pt given printed and verbal discharge [...] gait, in no apparent distress, Rebekah Mcqueen Counts [facility]Lnmadw1274-89-63 18:56:25 Pt states her left arm feels numb and tingling, denies any other symptoms, ambulatory to triage anddrove herself to ED. Patient states she has hx of TIA. Clif Mittal Counts [facility]Vxaclw9684-91-07 15:57:49 Cooper Morton is a 37 year old female Patient is calling and wanting to speak with Colette Swift and wouldn't state what it was regarding. Please assist [phone] [place] AndradeAvita Health System [facility] HospitalFxgjum6298-32-47 17:09:41 Cooper Morton is a 37 year old femalea pt. Calling stating that she has been speaking to Colette Swift and needs a call back please advise. Thank you Shyanne De La Rosa [facility]pcmwn[facility]752-68-97 09:51:33 NACHO 05/07/23 NOV 06/19/23 " Dizziness [...] with patient NSR, low voltage" Adilene Castellanos Counts [facility]Aozkbb7461-15-55 16:17:58 Received medical records request from [facility], will send to [facility] records for them to execute. Reach out to [facility] for any updates. Olive Gee [facility]
[2024-12-17] MEDS ORDERED: KETOROLAC 30 MG/ML INJ ONE (00:46)
[2024-12-17] MEDS ORDERED: predniSONE 20 MG TAB ONE (00:46)
[2024-12-17] MEDS ORDERED: ACETAMINOPHEN 500 MG TAB ONE (00:46)
[2024-12-17] MEDS ORDERED: LIDOCAINE VISCOUS 2% 10ML ORAL SOLN ONE (00:48)
[2024-12-17 01:21] LABS: Influenza A Ag Negative; Influenza B Ag Negative; SARS-CoV-2 Antigen Rapid Res Negative (Negative)
--- NOTE | 2024-12-17 01:29 | ER ---
Nurse's Notes [facility] Name: Larry Morton Age: 39 yrs Sex: Female : 1985 Arrival Date: 12/17/2024 Time: 00:24 Bed 11 Private MD: Diagnosis: Acute pharyngitis, unspecified Presentation: 12/17 00:38 Chief complaint: Patient states: right sided head pain and sore throat. Coronavirus vc1 screen: Client denies travel out of the [place] in the last 14 days. headache, muscle pain, sore throat, Client presents with at least one sign or symptom that may indicate coronavirus-19. Ebola Screen: Patient negative for fever greater than or equal to 101.5 degrees Fahrenheit, and additional compatible Ebola Virus Disease symptoms Patient denies exposure to infectious person. Patient denies travel to an Ebola-affected area in the 21 days before illness onset. No symptoms or risks identified at this time. Initial Sepsis Screen: Does the patient meet any 2 criteria? No. Patient's initial sepsis screen is negative. Does the patient have a suspected source of infection? No. Patient's initial sepsis screen is negative. Risk Assessment: Do you want to hurt yourself or someone else? Patient reports no desire to harm self or others. Onset of symptoms was December 16, 2024 at 21:30. 00:38 Method Of Arrival: Ambulatory vc1 00:38 Acuity: CELESTINO 4 vc1 Triage Assessment: 01:50 Headache History: Denies prior headaches. General: Appears in no apparent distress. vc1 uncomfortable, slender, well groomed, well developed, well nourished, Behavior is calm, cooperative, appropriate for age. Pain: Complains of pain in right side of forehead Pain does not radiate. Pain currently is 8 out of 10 on a pain scale. Quality of pain is described as pressure, numb, Pain began suddenly, 3 hours ago. Also complains of nausea. EENT: No deficits noted. No signs and/or symptoms were reported regarding the EENT system. Neuro: Level of Consciousness is awake, alert, obeys commands, Oriented to person, place, time, situation, Appropriate for age Reports headache in right. Cardiovascular: Capillary refill < 3 seconds Patient's skin is warm and dry. Respiratory: Airway is patent Respiratory effort is even, unlabored, Respiratory pattern is regular, symmetrical. GI: Abdomen is flat, non-distended. : No deficits noted. No signs and/or symptoms were reported regarding the genitourinary system. Derm: Skin is intact, is healthy with good turgor, Skin is dry, Skin is pink, warm \T\ dry. Skin temperature is warm. Musculoskeletal: Circulation, motion, and sensation intact. Range of motion: intact in all extremities. 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 - Infectious Disease History:: Denies. - Social history:: Smoking status: Patient denies any tobacco usage or history of. Screenin:40 [facility] ED Fall Risk Assessment (Adult) History of falling in the last 3 months, vc1 including since admission No falls in past 3 months (0 pts) Confusion or Disorientation No (0 pts) Intoxicated or Sedated No (0 pts) Impaired Gait No (0 pts) Mobility Assist Device Used No (0 pt) Altered Elimination No (0 pt) Score/Fall Risk Level 0 - 2 = Low Risk Oriented to surroundings, Maintained a safe environment, Educated pt \T\ family on fall prevention, incl call for assistance when getting out of bed. Abuse screen: Denies threats or abuse. Nutritional screening: No deficits noted. Tuberculosis screening: No symptoms or risk factors identified. Vital Signs: 00:38 BP 122 / 80; Pulse 95; Resp 18; Temp 99.1; Pulse Ox 100% ; Height 5 ft. 4 in. ; Pain vc1 07/31; 00:38 Pain Scale: Adult vc1 ED Course: 00:27 Patient arrived in ED. gm2 00:30 Sergio Danielson MD is Attending Physician. ec2 00:39 Triage completed. vc1 00:40 Arm band placed on right wrist. vc1 00:41 Patient has correct armband on for positive identification. vc1 00:41 Provided Education on: call light. vc1 00:53 Group A Streptococcus Rapid Sent. vk 00:54 COVID-19 Ag + Flu A+B Ag Sent. vk 00:54 COVID swab sent to lab. Flu and/or RSV swab sent to lab. vk 01:52 No provider procedures requiring assistance completed. Patient did not have IV access vc1 during this emergency room visit. Administered Medications: 00:57 Drug: Acetaminophen PO 1000 mg PO once Route: PO; vc1 00:57 Drug: predniSONE PO 20 mg PO once Route: PO; vc1 00:58 Drug: Ketorolac IM 30 mg IM once Route: IM; Site: left deltoid; vc1 00:58 Drug: Viscous Lidocaine Mucous Membrane Liquid (4 %) 10 ml Mucous Membrane once Route: vc1 Mucous Membrane; Medication: 01:50 VIS not applicable for this client. vc1 Outcome: 01:29 Discharge ordered by . ec2 01:52 Discharged to home ambulatory, vc1 01:52 Condition: good 01:52 Discharge instructions given to patient, Instructed on discharge instructions, follow up and referral plans. medication usage, Demonstrated understanding of instructions, follow-up care, medications, Prescriptions given X 2, 01:53 Patient left the ED. vc1 Signatures: Mindi Newton RN RN vc1 Sergio Danielson MD MD ec2 Magali Bond Angie Damon
--- NOTE | 2024-12-17 01:30 | EDPHYS ---
Physician Documentation [facility] Name: Larry Morton Age: 39 yrs Sex: Female : 1985 Arrival Date: 12/17/2024 Time: 00:24 Bed 11 Private MD: ED Physician Sergio Danielson HPI: 12/17 00:47 This 39 yrs old Black Female presents to ER via Ambulatory with complaints of Headache, ec2 Sore Throat, Pain. 00:47 Patient arrives today d/t concern for sore throat. reports that she has been having a ec2 sore throat since several hours ago. no n/v/d, no fevers, no chills. reports odynophagia. Also reports some headache as well, right-sided, no falls injuries or trauma. 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 - Infectious Disease History:: Denies. - Social history:: Smoking status: Patient denies any tobacco usage or history of. ROS: 00:48 Constitutional: as per hpi ec2 Exam: 00:48 Constitutional: GEN: NAD Head: atraumatic Eyes: EOMI Ears: External ears are ec2 normal. CV: regular rate LUNGS: no respiratory distress, no wheezes or rales or rhonchi ABD: non-distended SKIN: no evidence of rashes MSK: no evidence of trauma Mouth: Right posterior pharyngeal erythema without exudates present, notes anterior cervical lymphadenopathy noted. Vital Signs: 00:38 BP 122 / 80; Pulse 95; Resp 18; Temp 99.1; Pulse Ox 100% ; Height 5 ft. 4 in. ; Pain vc1 10/10; 00:38 Pain Scale: Adult vc1 MDM: 00:41 Medical Screening Exam initiated ec2 00:48 Data reviewed: vital signs, nurses notes. ED course: Patient arrives today for a dyne ec2 aphasia. Examination is revealing for nontoxic dividual's otherwise in no acute distress. Will obtain viral swab, strep swab, treat the patient's symptoms. Suspect pharyngitis, possible viral versus bacterial. Regards patient's headache, suspect this is all sequela from this as well.. 01:25 ED course: Negative viral and strep swab. Patient is hemodynamically stable and ec2 well-appearing, low suspicion for deep space infection, suspect viral pharyngitis.. 01:29 ED course: On reassessment patient is well-appearing no acute distress. Will discharge ec2 home. Return precautions given.. 12/17 00:40 Order name: COVID-19 Ag + Flu A+B Ag; Complete Time: :23 ec2 12/17 00:40 Order name: Group A Streptococcus Rapid; Complete Time: ec2 12/17 01:23 Order name: Throat Culture EDMS Administered Medications: 00:57 Drug: Acetaminophen PO 1000 mg PO once Route: PO; vc1 00:57 Drug: predniSONE PO 20 mg PO once Route: PO; vc1 00:58 Drug: Ketorolac IM 30 mg IM once Route: IM; Site: left deltoid; vc1 00:58 Drug: Viscous Lidocaine Mucous Membrane Liquid (4 %) 10 ml Mucous Membrane once Route: vc1 Mucous Membrane; Disposition Summary: 12/17/24 01:29 Discharge Ordered Notes: Location: Home ec2 Condition: Stable ec2 Diagnosis - Acute pharyngitis, unspecified ec2 Followup: ec2 - With: Private Physician - When: - Reason: Re-evaluation by your physician Discharge Instructions: - Discharge Summary Sheet ec2 - Pharyngitis, [id number] ec2 Forms: - Medication Reconciliation Form ec2 - Antibiotic Education ec2 - Prescription Opioid Use ec2 - Patient Portal Instructions ec2 - Leadership Thank You Letter ec2 Prescriptions: - Viscous Lidocaine 2% - take 10 milliliter ORAL route every 4 hours; 150 milliliter; Refills: 0, ec2 Product Selection Permitted - Prednisone 20 mg Oral Tablet - take 2 tablets ORAL route once daily for 5 days; 10 tablet; Refills: 0, Product ec2 Selection Permitted Signatures: Dispatcher [facility] Mindi Burden RN RN vc1 Sergio Danielson MD MD ec2 Corrections: (The following items were deleted from the chart) 00:49 00:47 Patient arrives today d/t concern for sore throat. reports that she has been ec2 having a sore throat since several hours ago. no n/v/d, no fevers, no chills. reports odynophagia. . ec2
[2024-12-17 02:02] VITALS: BP 122/80; TEMP 99.1; O2SAT 100
== END 2024-12-17 01:53 | disposition home or self-care (01) ==
LOC: ER 00:24
DX: J02.9 Acute pharyngitis, unspecified (principal); R51.9 Headache, unspecified; Z11.52 Encounter for screening for COVID-19
CPT/HCPCS: 87070; 36415; 87428; J7512; 96372; 99284

== ENCOUNTER 2024-12-26 23:21 | Emergency (ER) | payer BC, SELFPAY ==
--- OUTSIDE RECORDS SUMMARY | 2024-12-26 23:25 | XMS REPORT | Continuity of Care Document ---
Author Name Unknown Address [address] [place] [address] Organization [facility] [place] Address [address] [place] [address] Care Team Providers Care Hand Iii Cutter Name Role Phone Lola Goldstein Primary Care Physician [phone] Steve Restrepo PA-C Attending Clinician [phone] LOLA BAPTISTE Attending Clinician Unavailable Doctor Unassigned, [place] Attending Clinician U LEANDRA Soriano Attending Clinician Unavailable JESSICA TOBAR Attending Clinician UnavailLeandra Jang MD Attending Clinician [phone] Lola Goldstein Attending Clinician [phone] Lab, Ang - Db Attending Clinician Unavailable STEVE RESTREPO Attending Clinician Unavailable Myke Whitehead MD Attending Clinician [phone] Leandra Biggs MD Attending Clinician [phone] NI CASSIDY Attending Clinician NI Bynum Attending Clinician MARGARITO Ye Attending Clinician UnavailMARGARITO Hill Attending Clinician UnavailLola Peterson Attending Clinician [phone] Lab, Ang - Db Attending Clinician Unavailable Doctor Unassigned, [place] Attending Clinician U MITZI Christian Attending Clinician Unavailable Mitzi Mcbride MD Attending Clinician [phone] Sheryl Wooten PA-C Attending Clinician [phone] MITZI MCBRIDE Admitting Clinician Unavailable Payers Payer Name Policy Type Policy Number Effective Date Expirati on Date Source [employer] GENERIC [id number] 2022 00:00:00 2022-10 00:00:00 Problems Condition Name Condition Details Condition Category Status Onset Date Resolution Date Last Treatment Date Treating Clinician Comments Source Vitamin D deficiency Vitamin D deficiency Disease Active 07-09 00:00: 00 [facility] Obesity (BMI 30.0-34.9) Obesity (BMI 30.0-34.9) Disease Active 07-09 00:00: 00 [facility] Status post gastric bypass for obesity Status post gastric bypass for obesity Disease Active 07-09 00:00: 00 [facility] NSVT (nonsustai faith ventricula r tachycardi a) NSVT (nonsustai faith ventricula r tachycardi a) Disease Active 05-07 00:00: 00 [facility] PFO (patent foramen ovale) PFO (patent foramen ovale) Disease Active 05-07 00:00: 00 [facility] Obesity due to excess calories, unspecifie d classifica tion, unspecifie d whether serious comorbidit y present Obesity due to excess calories, unspecifie d classifica tion, unspecifie d whether serious comorbidit y present Disease Active 03-09 00:00: 00 [facility] Obesity due to excess calories, unspecifie d classifica tion, unspecifie d whether serious comorbidit y present Obesity due to excess calories, unspecifie d classifica tion, unspecifie d whether serious comorbidit y present Disease Active 03-09 00:00: 00 [facility] Orthostati c hypotensio n Orthostati c hypotensio n Disease Active 03-09 00:00: 00 [facility] Obesity (BMI 30-39.9) Obesity (BMI 30-39.9) Disease Active 03-09 00:00: 00 [facility] History of transient ischemic attack (TIA) History of transient ischemic attack (TIA) Disease Active 03-09 00:00: 00 [facility] Dizziness and giddiness Dizziness and giddiness Disease Active 03-09 00:00: 00 [facility] Sinus bradycardi a Sinus bradycardi a Disease Active 03-09 00:00: 00 [facility] Allergies, Adverse Reactions, Alerts Allergy Name Allergy Type Status Severity Reaction(s) Onset Date Inactive Date Treating Clinician Comments Source NO KNOWN ALLERGIE S Drug Class Active [facility] Social History Social Habit Start Date Stop Date Quantity Comments Source Gender identity 2024-01-12 09:02:59 Identifies as [facility] Sexual orientation [facility] History SDOH Alcohol Std Drinks [facility] History SDOH Alcohol Binge [facility] Alcoholic beverage intake 2024-10-03 00:00:00 2024-10-03 00:00:00 Ex-drinker (finding) [facility] Alcohol intake 2023-07-09 00:00:00 2023-07-09 00:00:00 Ex-drinker (finding) [facility] Tobacco use and exposure 2023-05-07 00:00:00 2023-05-07 00:00:00 Smokeless tobacco non-user [facility] History of Social function 2023-04-10 00:00:00 2023-04-10 00:00:00 [facility] Exposure to SARS-CoV-2 (event) 2023-02-27 00:00:00 2023-03-09 08:25:00 Not sure [facility] History SDOH Alcohol Frequency 2019-07-02 00:00:00 2019-07-02 00:00:00 1 [facility] Sex assigned at 1985 00:00:00 1985 00:00:00 [facility] Smoking Status Start Date Stop Date Source Never smoked tobacco [facility] Medications Ordered Medication Name Filled Medication Name Start Date Stop Date Current Medication? Ordering Clinician Indication Dosage Frequency Signature (SIG) Comments Components Source midodrine 2.5 mg tablet 2023-10 2-31 00:00: 00 11-06 05:59 :00 Yes [id number] 2.5mg Take 1 tablet by mouth in the morning and 1 tablet at noon and 1 tablet in the evening. Do all this for 15 days. [facility] ferrous sulfate 325 mg (65 mg iron) EC tablet 2023-10 2- 00:00: 00 Yes [id number] 325mg Take 1 tablet by mouth in the morning and 1 tablet at noon and 1 tablet in the evening. Take with meals. [facility] ferrous sulfate 325 mg (65 mg iron) EC tablet 2023-10 2 00:00: 00 10-13 00:00 :00 No [id number] 325mg Take 1 tablet by mouth in the morning and 1 tablet at noon and 1 tablet in the evening. Take with meals. [facility] atorvastati n (Lipitor) 40 MG tablet atorvastati n (Lipitor) 40 MG tablet 7-13 00:00: 00 Yes 40mg TAKE 1 TABLET BY MOUTH EVERYDAY AT BEDTIME Samanta Mckeon [facility] midodrine 2.5 mg tablet 5-20 00:00: 00 10-13 00:00 :00 No [id number] 2.5mg Take 1 tablet by mouth in the morning and 1 tablet at noon and 1 tablet in the evening. [facility] midodrine 2.5 mg tablet 07-13 00:00: 00 03-10 00:00 :00 No [id number] 2.5mg Take 1 tablet by mouth in the morning and 1 tablet at noon and 1 tablet in the evening. [facility] ferrous sulfate (IRON) 325 mg (65 mg iron) tablet 07-09 13:10: 09 07-09 00:00 :00 No 325mg Take 1 tablet by mouth in the morning and 1 tablet at noon and 1 tablet in the evening. Take with meals. [facility] foLIC acid 1 mg tablet 07-09 13:09: 20 Yes 1mg Take 1 tablet by mouth in the morning. [facility] midodrine 2.5 mg tablet 06-29 00:00: 00 07-13 00:00 :00 No [id number] 2.5mg Take 1 tablet by mouth in the morning and 1 tablet at noon and 1 tablet in the evening. [facility] foLIC acid 1 mg tablet 06-22 06:59: 44 Yes 1mg Take 1 tablet by mouth in the morning. [facility] ferrous sulfate (IRON) 325 mg (65 mg iron) tablet 06-22 06:59: 44 Yes 325mg Take 1 tablet by mouth in the morning and 1 tablet at noon and 1 tablet in the evening. Take with meals. [facility] midodrine 2.5 mg tablet 05-31 00:00: 00 06-29 00:00 :00 No [id number] 2.5mg Take 1 tablet by mouth in the morning and 1 tablet at noon and 1 tablet in the evening. [facility] midodrine 2.5 mg tablet 17 00:00: 00 05-31 00:00 :00 No [id number] 2.5mg Take 1 tablet by mouth in the morning and 1 tablet at noon and 1 tablet in the evening. [facility] foLIC acid 1 mg tablet 03-09 08:45: 47 Yes 1mg Take 1 tablet by mouth in the morning. [facility] ferrous sulfate (IRON) 325 mg (65 mg iron) tablet 03-09 08:45: 47 Yes 325mg Take 1 tablet by mouth in the morning and 1 tablet at noon and 1 tablet in the evening. Take with meals. [facility] aspirin 81 mg EC tablet 504 00:00: 00 Yes 81mg Take 1 tablet by mouth in the morning. [facility] atorvastati n 40 mg tablet 4-27 00:00: 00 Yes 40mg Take 1 tablet by mouth at bedtime. [facility] ibuprofen (MOTRIN) 600 mg tablet 05-02 00:00: 00 07-09 00:00 :00 No 600mg Take 1 tablet by mouth every 6 (six) hours as needed for Pain (scale 4-6). [facility] Immunizations Ordered Immunization Name Filled Immunization Name Date Status Comments Source SARS-COV-2 COVID-19 PFIZER VACCINE 2021-05-14 00:00:00 Completed [facility] SARS-COV-2 COVID-19 PFIZER VACCINE 2021-05-14 00:00:00 Completed SARS-COV-2 COVID-19 PFIZER VACCINE 2021-04-22 00:00:00 Completed [facility] SARS-COV-2 COVID-19 PFIZER VACCINE 2021-04-22 00:00:00 Completed SARS-COV-2 COVID-19 PFIZER VACCINE Unknown Completed [facility] SARS-COV-2 COVID-19 PFIZER VACCINE Unknown Completed [facility] SARS-COV-2 COVID-19 PFIZER VACCINE Unknown Completed [facility] SARS-COV-2 COVID-19 PFIZER VACCINE Unknown Completed [facility] SARS-COV-2 COVID-19 PFIZER VACCINE Unknown Completed [facility] SARS-COV-2 COVID-19 PFIZER VACCINE Unknown Completed [facility] SARS-COV-2 COVID-19 PFIZER VACCINE Unknown Completed [facility] SARS-COV-2 COVID-19 PFIZER VACCINE Unknown Completed [facility] Vital Signs Vital Name Observation Time Observation Value Comments S ource Systolic blood pressure 2024-10-03 15:41:00 105 mm[Hg[facility] Diastolic blood pressure 2024-10-03 15:41:00 54 mm[Hg] [facility] Heart rate 2024-10-03 15:41:00 70 /min [facility] Body temperature 2024-10-03 15:41:00 37 Wen [facility] Body height 2024-10-03 15:41:00 162.6 cm [facility] Body weight 2024-10-03 15:41:00 83.462 kg [facility] BMI 2024-10-03 15:41:00 31.58 kg/m2 [facility] Oxygen saturation in Arterial blood by Pulse oximetry 2024-10-03 15:41:00 100 /min [facility] Systolic blood pressure 2023-07-09 18:10:00 104 mm[Hg] [facility] Diastolic blood pressure 2023-07-09 18:10:00 67 mm[Hg] [facility] Heart rate 2023-07-09 18:10:00 65 /min [facility] Body height 2023-07-09 18:10:00 162.6 cm [facility] 2023-07-09 18:10:00 89.359 kg [facility] BMI 2023-07-09 18:10:00 33.81 kg/m2 [facility] Oxygen saturation in Arterial blood by Pulse oximetry 2023-07-09 18:10:00 100 /min [facility] Body height 2023-06-22 13:51:00 162.6 cm [facility] Body weight 2023-06-22 13:51:00 86.183 kg [facility] BMI 2023-06-22 13:51:00 32.61 kg/m2 [facility] Systolic blood pressure 2023-06-22 13:15:00 121 mm[Hg] [facility] Diastolic blood pressure 2023-06-22 13:15:00 72 mm[Hg] [facility] Heart rate 2023-06-22 13:15:00 60 /min [facility] Respiratory rate 2023-06-22 13:15:00 21 /min [facility] Oxygen saturation in Arterial blood by Pulse oximetry 2023-06-22 13:15:00 100 /min [facility] Body temperature 2023-06-22 12:05:00 36.61 Wen [facility] Systolic blood pressure 2023-06-16 03:00:00 103 mm[Hg] [facility] Diastolic blood pressure 2023-06-16 03:00:00 61 mm[Hg] [facility] Heart rate 2023-06-16 03:00:00 72 /min [facility] Respiratory rate 2023-06-16 03:00:00 16 /min [facility] Oxygen saturation in Arterial blood by Pulse oximetry 2023-06-16 03:00:00 98 /min [facility] Body temperature 2023-06-15 23:57:00 37.22 Wen [facility] Body height 2023-06-15 23:57:00 162.6 cm [facility] Body weight 2023-06-15 23:57:00 86.183 kg [facility] BMI 2023-06-15 23:57:00 32.61 kg/m2 [facility] Systolic blood pressure 2023-05-07 19:25:00 107 mm[Hg] [facility] Diastolic blood pressure 2023-05-07 19:25:00 70 mm[Hg] [facility] Heart rate 2023-05-07 19:25:00 54 /min [facility] Respiratory rate 2023-05-07 19:25:00 16 /min [facility] Body height 2023-05-07 19:25:00 162.6 cm [facility] Body weight 2023-05-07 19:25:00 86.592 kg [facility] BMI 2023-05-07 19:25:00 32.77 kg/m2 [facility] Oxygen saturation in Arterial blood by Pulse oximetry 2023-05-07 19:25:00 98 /min [facility] Systolic blood pressure 2023-03-09 13:52:00 110 mm[Hg] [facility] Diastolic blood pressure 2023-03-09 13:52:00 68 mm[Hg] [facility] Heart rate 2023-03-09 13:52:00 71 /min [facility] Body height 2023-03-09 13:52:00 162.6 cm [facility] Body weight 2023-03-09 13:52:00 85.957 kg [facility] BMI 2023-03-09 13:52:00 32.53 kg/m2 [facility] Oxygen saturation in Arterial blood by Pulse oximetry 2023-03-09 13:52:00 99 /min [facility] Systolic blood pressure 2019-07-02 20:30:00 137 mm[Hg] [facility] Diastolic blood pressure 2019-07-02 20:30:00 91 mm[Hg] [facility] Heart rate 2019-07-02 20:30:00 90 /min [facility] Body temperature 2019-07-02 20:30:00 36.83 Wen [facility] Respiratory rate 2019-07-02 20:30:00 18 /min [facility] Body height 2019-07-02 20:30:00 162.6 cm [facility] Body weight 2019-07-02 20:30:00 155.13 kg [facility] BMI 2019-07-02 20:30:00 58.70 kg/m2 [facility] Procedures Procedure Date / Time Performed Performing Clinician Source IRON PANEL 2024-10-03 16:10:00 Steve Restrepo [facility] CBC WITH DIFF 2024-10-03 16:10:00 Steve Restrepo [facility] MEDICAL RELEASE/CLEARANCE FORMS 2023-07-11 05:01:00 Doctor Unassigned, [place] [facility] TRANSESOPHAGEAL ECHO (JAYNA) COMPLETE W/ DOPPLER AND COLOR 2023-06-22 12:39:00 Leandra Biggs [facility] TRANSESOPHAGEAL ECHO 2023-06-22 05:01:00 Doctor Unassigned, [place] [facility] CT HEAD WO CONTRAST 2023-06-16 02:18:15 Mitzi Mcbride [facility] TROPONIN I 2023-06-16 01:41:00 Mitzi Mcbride [facility] COMP. METABOLIC PANEL ([id number]) 2023-06-16 01:41:00 Mitzi Mcbride [facility] CBC WITH DIFF 2023-06-16 01:41:00 Mitzi Mcbride [facility] N-TERMINAL PRO-BNP 2023-06-16 01:41:00 Mitzi Mcbride [facility] POCT TEST 2023-06-16 01:31:00 Mitzi Mcbride [facility] URINALYSIS 2023-06-16 01:29:00 Mitzi Mcbride [facility] INSURANCE CORRESPONDENCE 2023-04-20 05:01:00 Doc tor Unassigned, [place] [facility] PHYSICIAN CERTIFICATION STATEMENT 2023-04-07 05:01:00 Doctor Unassigned, [place] [facility] HB ECG ROUTINE & RHYTHM STRIP 2023-03-09 13:49:18 Leandra Biggs [facility] CONSENT/REFUSAL FOR DIAGNOSIS AND TREATMENT 2023-03-09 13:26:58 Doctor Unassigned, [place] [facility] REFERRAL- REQUEST/RESPONSE 2023-03-01 05:01:00 D cameronor Unassigned, [place] [facility] Encounters Start Date/Time End Date/Time Encounter Type Admission Type Attending [facility] Care Facility Care Department Encounter ID Source 2024-10-03 00:00:00 2024-12-03 15:49:21 Telephone Steve Restrepo [facility] 1.2.840.114 350.1.13.10 4.2.7.2.686 [id number] [facility] 2024-11-25 15:30:00 2024-11-25 15:30:00 Outpatient LOLA ESPINOZA [facility] [id number] [facility] 2024-10-10 00:00:00 2024-11-15 18:18:32 Patient Secure Msg Doctor Unassigned, [place] Doctor Unassigned, [place] [facility] 1.2.840.114 350.1.13.10 4.2.7.2.686 [id number] [facility] 2024-11-03 11:00:00 2024-11-03 11:00:00 Outpatient LEANDRA KNIGHT [facility] [id number] [facility] 2024-10-23 09:00:00 2024-10-23 09:00:00 Outpatient JESSICA JONES [facility] [id number] [facility] 2024-10-13 00:00:00 2024-10-21 17:04:[address] [facility] 1.2.840.114 350.1.13.10 4.2.7.2.686 [id number] [facility] 2024-10-21 14:00:00 2024-10-21 14:00:00 Outpatient R DIAN LEANDRA [facility] [id number] [facility] 2024-10-13 00:00:00 2024-10-20 15:33:00 Patient Secure Steve Stone [facility] 1.2.840.114 350.1.13.10 4.2.7.2.686 [id number] [facility] 2024-10-13 00:00:00 2024-10-17 08:19:52 Refill Lauro Steve [facility] 1.2.840.114 350.1.13.10 4.2.7.2.686 [id number] [facility] 2024-10-13 00:00:00 2024-10-13 08:42:53 Telephone Lola Baptiste [facility] 1.2.840.114 350.1.13.10 4.2.7.2.686 [id number] [facility] 2024-10-03 00:00:00 2024-10-03 11:38:17 Telephone Steve Restrepo [facility] 1.2.840.114 350.1.13.10 4.2.7.2.686 [id number] [facility] 2024-10-03 11:15:00 2024-10-03 11:15:00 Production Editor Visit Lab, Steve Lmoas Lab, Otto Silva [facility] 1.2.840.114 350.1.13.10 4.2.7.2.686 [id number] [facility] 2024-10-03 10:30:00 2024-10-03 10:30:00 Office Visit Katelyn Restrepon [facility] 1.2.840.114 350.1.13.10 4.2.7.2.686 [id number] [facility] 2024-10-03 10:30:00 2024-10-03 10:05:21 Outpatient R STEVE RESTREPO [facility] [id number] [facility] 2024-05-03 00:00:00 2024-05-03 13:50:13 Refill Myke Whitehead 1.2.840.114 350.1.13.70 8.2.7.2.686 [id number] Samanta Mckeon [facility] 2024-04-03 14:00:00 2024-04-03 14:00:00 Outpatient LOLA ESPINOZA [facility] [id number] [facility] 2024-03-10 00:00:00 2024-03-31 13:31:05 RefLeandra Castellanos [facility] NAL BUILD[facility] 1.2.840.114 350.1.13.10 4.2.7.2.686 [id number] [facility] 2024-03-11 09:30:00 2024-03-11 09:30:00 Outpatient NI HANDLEY MARISOL [facility] [id number] [facility] 2024-03-10 10:02:18 2024-03-10 10:02:18 Outpatient KARLEY CRANDALL [id number] [facility] 2023-08-13 15:30:00 2023-08-13 15:30:00 Outpatient R MARGARITO CORONADO CHERYAL [facility] [id number] [facility] 2023-07-13 00:00:00 2023-07-13 00:00:00 [facility] 1.2.840.114 350.1.13.10 4.2.7.2.686 [id number] [facility] 2023-07-12 00:00:00 2023-07-12 00:00:00 Patient Secure [facility] 1.284.114 350.1.13.10 4.2.7.2.686 [id number] [facility] 2023-07-12 00:00:00 2023-07-12 00:00:00 Patient Secure Msg Baptiste [facility] 1.2.840.114 350.1.13.10 4.2.7.2.686 [id number] [facility] 2023-07-11 16:30:00 2023-07-11 16:52:09 [id number] 2023-07-11 16:30:00 2023-07-11 16:45:00 Production Editor Visit Lab, Otto Silva [facility] 1.284.114 350.1.13.10 4.2.7.2.686 [id number] [facility] 2023-07-11 00:00:00 2023-07-11 00:00:[address] [facility] 1.2.840.114 350.1.13.10 4.2.7.2.686 [id number] [facility] 2023-07-11 00:00:00 2023-07-11 00:00:00 Orders Only Doctor Unassigned, [place] [facility] 1.284.114 350.1.13.10 4.2.7.2.686 [id number] [facility] 2023-07-09 13:00:00 2023-07-09 15:42:52 Outpatient R CARYNRICH LOLA [facility] [id number] [facility] 2023-07-09 13:00:00 2023-07-09 13:30:00 [facility] 1.284.114 350.1.13.10 4.2.7.2.686 [id number] [facility] 2023-07-02 09:00:00 2023-07-02 09:00:00 Outpatient Delores BAPTISTEMICHELLELOLA [facility] [id number] [facility] 2023-06-29 00:00:00 2023-06-29 00:00:00 Refill Dian [facility] BUILDING 1.84.114 350.1.13.10 4.2.7.2.686 [id number] [facility] 2023-06-27 00:00:00 2023-06-27 00:00:00 Telephone Dian [facility] BUILD[facility] 1.84.114 350.1.13.10 4.2.7.2.686 [id number] [facility] 2023-06-27 00:00:00 2023-06-27 00:00:00 [facility] 1.284.114 350.1.13.10 4.2.7.2.686 [id number] [facility] 2023-06-27 00:00:00 2023-06-27 00:00:00 Telephone Dian [facility] BUILD[facility] 1..840.114 350.1.13.10 4.2.7.2.686 [id number] [facility] 2023-06-22 06:48:53 2023-06-22 23:59:00 Outpatient R DIAN [facility] [id number] [facility] 2023-06-22 06:48:53 2023-06-22 23:59:00 Hospital Encounter Dian [facility] 1..840.114 350.1.13.10 4.2.7.2.686 [id number] [facility] 2023-06-19 13:40:00 2023-06-19 13:40:00 Outpatient R DIAN [facility] [id number] [facility] 2023-06-15 18:59:00 2023-06-15 23:24:00 Emergency X MITZI MCBRIDE [facility] ERT [id number] [facility] 2023-06-15 18:59:00 2023-06-15 23:24:[address] [facility] 1..840.114 350.1.13.10 4.2.7.2.686 [id number] [facility] 2023-06-05 00:00:00 2023-06-05 00:00:00 Outpatient R DIAN [facility] [id number] [facility] 2023-06-04 00:00:00 2023-06-04 00:00:00 Telephone Dian [facility] BUILDING 1..840.114 350.1.13.10 4.2.7.2.686 [id number] [facility] 2023-05-30 00:00:00 2023-05-30 00:00[facility] 1.2.840.114 350.1.13.10 4.2.7.2.686 [id number] [facility] 2023-05-11 00:00:00 2023-05-11 00:00:00 [facility] 1.2.840.114 350.1.13.10 4.2.7.2.686 [id number] [facility] 2023-05-07 14:20:00 2023-05-07 14:40:00 [facility] 1.2.840.114 350.1.13.10 4.2.7.2.686 [id number] [facility] 2023-05-07 14:20:00 2023-05-07 14:20:00 [facility] [id number] [facility] 2023-05-01 00:00:00 2023-05-01 00:00:00 Patient Secure Msg Dian [facility] 1.2.840.114 350.1.13.10 4.2.7.2.686 [id number] [facility] 2023-04-27 00:00:00 2023-04-27 00:00:00 Telephone Dian [facility] 1.2.840.114 350.1.13.10 4.2.7.2.686 [id number] [facility] 2023-04-20 00:00:00 2023-04-20 00:00:00 [facility] 1.2.840.114 350.1.13.10 4.2.7.2.686 [id number] [id number] [facility] 2023-04-20 00:00:00 2023-04-20 00:00:00 Orders Only Doctor Unassigned, [place] [facility] 1.2.840.114 350.1.13.10 4.2.7.2.686 [id number] [facility] 2023-04-13 00:00:00 2023-04-13 00:00:00 [facility] 1.2.840.114 350.1.13.10 4.2.7.2.686 [id number] [facility] 2023-04-07 00:00:00 2023-04-07 00:00:00 Orders Only Doctor Unassigned, [place] [facility] 1.2.840.114 350.1.13.10 4.2.7.2.686 [id number] [id number] [facility] 2023-04-05 00:00:00 2023-04-05 00:00:00 Telephone Dian [facility] 1.2.840.114 350.1.13.10 4.2.7.2.686 [id number] [facility] 2023-03-30 00:00:00 2023-03-30 00:00:00 [facility] 1.2.840.114 350.1.13.10 4.2.7.2.686 [id number] [facility] 2023-03-29 15:01:56 2023-03-29 23:59:00 [facility] [id number] [facility] 2023-03-13 00:00:00 2023-03-13 00:00:[facility] 1.2.840.114 350.1.13.10 4.2.7.2.686 [id number] [facility] 2023-03-09 09:40:00 2023-03-09 09:40:00 [facility] 1.2.840.114 350.1.13.10 4.2.7.2.686 [id number] [facility] 2023-03-09 09:40:00 2023-03-09 09:16:01 Out[facility] [id number] [facility] 2023-03-09 00:00:00 2023-03-09 00:00:00 Orders Only Doctor Unassigned, [place] [facility] 1.2.840.114 350.1.13.10 4.2.7.2.686 [id number] [facility] 2023-03-08 13:57:51 2023-03-08 13:57:51 Outpatient [facility] [id number] 2023-03-01 09:56:01 2023-03-01 09:56:01 Outpatient [facility] [id number] 2023-03-01 00:00:00 2023-03-01 00:00:00 Orders Only Doctor Unassigned, [place] [facility] 1.2.840.114 350.1.13.10 4.2.7.2.686 [id number] [facility] 2023-02-22 10:00:22 2023-02-22 10:00:22 Outpatient [facility] [id number] 2023-02-16 14:11:58 2023-02-16 14:11:58 Outpatient [facility] [id number] 2019-07-08 00:00:00 2019-07-08 00:00:00 Case Management Sheryl Wooten [facility] 1.2.840.114 350.1.13.10 4.2.7.2.686 [id number] [facility] 2019-07-02 15:20:19 2019-07-02 15:54:38 Office Visit Sheryl Wooten [facility] 1.2.840.114 350.1.13.10 4.2.7.2.686 [id number] [facility] Results Test Description Test Time Test Comments Results Result Co mments Source [facility] [id number] 21:30:08* Test Item Value Reference Range Interpretation Comme nts IRON (test code = 4673251465) 31 ug/dL 50-160 L TIBC (test code = 4824718335) 468 ug/dL 250-410 H % FE SAT (test code = 9376153129) 7 % 20-50 L Lab Interpretation (test cod e = 50100-7) Abnormal [facility] ([facility]AYNA)2023-06-22 19:13:01 * Test Item Value Reference Range Interpretation Comme nts Height (test code = 9703939643) 54 in Weight (test code = 0056986106) 190 lbs Systolic BP (test code = 2676648071) 118 mmHg Diastolic BP (test code = 0086954339) 73 mmHg Heart Rate (test code = 5786760936) 58 bpm Radiology Study observation (narrative) (test code = 83880-4) MIRACLE (test code = MIRACLE) ?Left?Ventricle: Left [...] shunt. The probe was inserted by the firearms model maker. There was no probe insertion difficulty.There were 1 attempts to insert the probe. Probe in 730. Probe out 739. Sedation and monitoring provided by anesthesia, see Epic documentation. 4% Lidocaine was used for local oropharyngeal anesthesia. There were no complications during the procedure. [facility] HospitalJUAN FRANCISCO [id number] 02:33:33* Test Item Value Reference Range Interpretation Comme nts TROPONIN I (test code = 9851319752) <=0.034 MIRACLE (test code = MIRACLE) Reference [...] of biotin. Lab Interpretation (test code = 34009-9) Normal [facility] WITH [id number] 02:33:12* Test Item Value Reference Range Interpretation Comme nts WBC (test code = 6690-2) 5.61 See_Comment [Automated Given Goodsa ge] The system which generated this result transmitted reference range: 4.30 - 11.10 10*3/?L. The reference range was not used to interpret this result as normal/abnormal. RBC (test code = 789-8) 4.17 See_Comment [Automated Given [employer]] The system which generated this result [...] 33.3 g/dL 31.6-35.1 RDW-SD (test code = 21736-0) 51.8 fL 39.0-49.9 H RDW-CV (test code = 788-0) 15.6 % 12.0-15.5 H PLT (test code = 777-3) 209 See_Comment [Automated Given [employer]] The system which generated this result transmitted reference range: 166 - 358 10*3/?L. The reference range was not used to interpret this result as normal/abnormal. MPV (test code = 76292-6) 11.8 fL 9.5-12.9 NRBC/100 WBC (test code = 8071920644) 0.0 See_Comment [Automated [employer] ssage] The system which generated this result transmitted reference range: 0.0 - 10.0 /100 WBCs. The reference range was not used to interpret this result as normal/abnormal. NRBC x10^3 (test code = 3737919060) See_Comment [Automated messa ge] The system which generated this result transmitted reference range: 10*3/?L. The reference range was not used to interpret this result as normal/abnormal. GRAN MAT (NEUT) % (test code = 770-8) 49.0 % IMM GRAN % (test code = 2770835117) 0.20 % LYMPH % (test code = 736-9) 38.3 % MONO % (test code = 5905-5) 10.5 % EOS % (test code = 713-8) 0.9 % BASO % (test code = 706-2) 1.1 % GRAN MAT x10^3(ANC) (test code = 1625221369) 2.75 10*3/uL 1.88-7.09 IMM GRAN x10^3 (test code = 8060018901) 0.00-0.06 LYMPH x10^3 (test code = 731-0) 2.15 10*3/uL 1.32-3.29 MONO x10^3 (test code = 742-7) 0.59 10*3/uL 0.33-0.92 EOS x10^3 (test code = 711-2) 0.05 10*3/uL 0.03-0.39 BASO x10^3 (test code = 704-7) 0.06 10*3/uL 0.01-0.07 Lab Interpretation (test code = 61332-4) Abnormal [facility]MINAL [id number] 02:31:11* Test Item Value Reference Range Interpretation Comme nts NT-proBNP (test code = 97096-6) 41 pg/mL <=125 Lab Interpretation (test cod e = 89266-2) Normal [facility] HospitalCOMP. METABOLIC PANEL (73849)2023-06-16 02:22:09* Test Item Value Reference Range Interpretation Comme nts NA (test code = 6509663288) 140 mmol/L 135-145 K (test code = 7516072504) 4.7 mmol/L 3.5-5.0 CL (test code = 0617576334) 108 mmol/L 98-108 CO2 TOTAL (test code = 1953829092) 24 mmol/L 23-31 AGAP (test code = 0052076764) 8 2-16 BUN (test code = 2251211879) 11 mg/dL 7-23 GLUCOSE (test code = 0176936623) 70 mg/dL 70-110 CREATININE (test code = 2159003104) 0.65 mg/dL 0.50-1.04 TOTAL BILI (test code = 9518120237) 0.2 mg/dL 0.1-1.1 CALCIUM (test code = 8927893493) 8.8 mg/dL 8.6-10.6 T PROTEIN (test code = 6608599399) 7.3 g/dL 6.3-8.2 ALBUMIN (test code = 3140440180) 4.2 g/dL 3.5-5.0 ALK PHOS (test code = 4997452516) 49 U/L 34-122 ALTv (test code = 1742-6) 60 U/L 5-35 H AST(SGOT) (test code = 3714853211) 43 U/L 13-40 H eGFR (test code = 3135105440) 103.1 mL/min/1.73m2 MIRACLE (test code = MIRACLE) [...] imaging tests). Lab Interpretation (test code = 06235-0) Abnormal [facility] HospitalPO[facility] [id number] 01:31:00* Test Item Value Reference Range Interpretation Comme nts POCT PREG (test code = 1605) Negative On board controls acceptable with C Line (test code = 3574) Yes POCT PREG LOT # (test code = 3575) [id number] POCT PREG TEST DATE ( test code = 3576) Lab Interpretation (test cod e = 26691-8) Normal [facility] HospitalOCCULT BLD,FECAL,IMMUNOASSAY [id number] 11:20:54* Test Item Value Reference Range Interpretation Comme [facility] OCCULT BLD, FECAL (test code = 96289) NEGATIVE NEGATIVE UNLESS OTHER PERRY INDICATED, ALL TESTING PERFORMED AT [facility] [address] [place] [address] NUCLEAR CONTROL ROOM OPERATOR: KATELYN GOMEZ M.D. CLIA NUMBER [id number] [facility] [place]. [id number] PATHOLOGIST SMEAR [id number] 13:20:44* Test Item Value Reference Range Interpretation Comme [facility] DIAGNOSIS: (test code = 8200) (NOTE) [...] (NOTE) Katelyn Gomez M.D. (electronically signed) Diplomate, [place] [employer] with Subspecialty Certification, Hematology CPT: (test code = 8400) 61659 WBC (test code = 1001) 4.1 K/UL [...] 0.00-0.10 ABS NUCLEATED RBCS (test code = 46020) 0.00 K/UL 0.00-0.11 COMMENTS (test code = 1016) (NOTE) MARKED ANISOCYTO SIS FEW ELLIPTOCYTES MODERATE HYPOCHROMASIA SLIGHT MICROCYTOSIS SLIGHT POIKILOCYTOSIS SLIGHT POLYCHROMASIA FEW TEAR DROP CELLS PLATELETS APPEAR INCREASED UNLESS OTHERWISE INDICATED, ALL TESTING PERFORMED AT [facility] [address] [place] [address] NUCLEAR CONTROL ROOM OPERATOR: KATELYN GOMEZ M.D. CLIA NUMBER [id number] [facility] [place]. [id number] HAPTOGLOBIN, [id number] 13:10:19* Test Item Value Reference Range Interpretation Comme nts HAPTOGLOBIN, QUANT (test cod e = 97259) 78 MG/DL 32-197 [id number] 07:59:28* Test Item Value Reference Range Interpretation Comme nts LDH (test code = 2224) 178 U/L 135-214 CBC W/AUTO DIFF WITH [id number] 23:14:06* Test Item Value Reference Range Interpretation [...] 0.00-0.10 ABS NUCLEATED RBCS (test code = 66791) 0.00 K/UL 0.00-0.11 COMMENTS (test code = 1016) (NOTE) MODERATE ANISOCY TOSIS MARKED HYPOCHROMASIA SLIGHT MICROCYTOSIS SLIGHT POLYCHROMASIA FEW SCHISTOCYTES PLATELETS APPEAR INCREASED RETICULOCYTE WITH [id number] 23:14:06* Test Item Value Reference Range Interpretation Comme [facility] RETICULOCYTE COUNT (test cod e = 1018) 3.68 % 0.80-2.40 H ABSOLUTE RETICULOCYTE (test code = 80162) 131.0 K/UL 32.0-105.0 H [id number] 04:46:23* Test Item Value Reference Range Interpretation Comme [facility] FERRITIN (test code = 2075) 114 NG/ML 13-200 VITAMIN B 12 AND FOLIC [id number] 04:46:23* Test Item Value Reference Range Interpretation Comme [facility] VITAMIN B-12 (test code = 2840) 394 [...] IRON BINDING CAPACITY AND IRON AND % [id number] 23:59:13* Test Item Value Reference Range Interpretation Comme nts IRON, SERUM (test code = 2222) 25 UG/DL 37-145 L UNSATURATED IBC (test code = 80257) 445 UG/DL 112-347 H CALC TOTAL IBC (test code = 2077) 470 UG/DL 250-450 H CALC % IRON SAT (test code = 2079) 5 % 20-50 L [id number] 23:58:52* Test Item Value Reference Range Interpretation Comme nts TRANSFERRIN (test code = 4936) 377 MG/DL 200-360 H [id number] 23:58:52* Test Item Value Reference Range Interpretation Comme nts HOMOCYSTEINE (test code = 4288) 15 UMOL/L <12 H UNLESS OTHERWISE INDICATED, ALL TESTING PERFORMED AT [facility] [address] [place] [address] NUCLEAR CONTROL ROOM OPERATOR: KATELYN GOMEZ M.D. CLIA NUMBER [id number] [facility] [place]. [id number] MICROSCOPIC [id number] 04:53:02* Test Item Value Reference Range Interpretation Comme nts WHITE BLOOD CELLS (test code = 1513) 0-5 /HPF 0-5 RED BLOOD CELLS (test code = 1514) 0-2 /HPF 0-2 PLEASE NOTE: NEW REFERENCE RANGE EFFECTIVE 23. EPITHELIAL CELLS (test code = 32918) 6-10 /HPF 0-10 BACTERIA (test code = 1515) >3+ NONE SEEN CRYSTALS (test code = 1516) PRESENT NONE SEEN A CALCIUM OXALATE CRYSTALS CASTS, HYALINE (test code = 1517) TRACE NONE-TRACE CBC W/AUTO DIFF WITH [id number] 15:50:45* Test Item Value Reference Range Interpretation [...] 0.00-0.10 ABS NUCLEATED RBCS (test code = 39803) 0.00 K/UL 0.00-0.11 COMMENTS (test code = 1016) (NOTE) MODERATE ANISOCY TOSIS MODERATE HYPOCHROMASIA MODERATE MICROCYTOSIS PLATELETS APPEAR NORMAL TSH, THIRD [id number] 10:17:10* Test Item Value Reference Range Interpretation Comme nts TSH, THIRD GENERATION (test code = 2821) 4.160 UIU/ML 0.400-4.100 H [id number] 08:48:32* Test Item Value Reference Range Interpretation Comme nts NT-proBNP (test code = 27735) <50 PG/ML SEE BELOW If NT-ProBNP is less than 300 PG/ML, heart failure is unlikely for allages. Age.................Heart Failure Likely <50 Years...........>=450 PG/ML 50-75 Years.........>=900 PG/ML > 75 Years..........>=1800 PG/ML Methodology: [employer] Electrochemiluminescense Immunoassay [facility] has important pathology staff changes effective 12/20/2022. New pathology staff will provide uninterrupted, excellent patient care and clinical consultation. See URL: [email or web address]. UNLESS OTHERWISE INDICATED, ALL TESTING PERFORMED AT [facility] [address] [place] [address] NUCLEAR CONTROL ROOM OPERATOR: KATELYN GOMEZ M.D. CLIA NUMBER [id number] [facility] [place]. [id number] COMPREHENSIVE METABOLIC [id number] 06:00:01* Test Item Value Reference Range Interpretation Comme nts GLUCOSE (test code = 2217) 85 MG/DL 70-99 BUN (test code = 2208) 7 MG/DL 6-20 CREATININE (test code = 2214) 0.71 MG/DL 0.60-1.30 eGFR (2020 CKD-EPI) (test code = 48891) 113 ML/MIN/1.73 >60 CALC BUN/CREAT (test code [...] code = 2219) 31 U/L 5-40 LIPID [id number] 06:00:01* Test Item Value Reference Range Interpretation [...] SPECIMENS. FOR MOREINFORMATION, SEE CLIENT ANNOUNCEMENT AT [email or web address] RISK RATIO LDL/HDL (test code = 2238) 0.82 RATIO <3.22 HEMOGLOBIN [id number] 05:05:23* Test Item Value Reference Range Interpretation Comme nts HEMOGLOBIN A1c (test code = 70424) 5.3 % 4.2-5.6 History and Physical Notes Date/Time Note Provider Source 2023-06-22 07:00:00 Formatting of this n ote might be different from the original. [facility] Echocardiography Lab Out-Patient Transesophageal Echo-Cardiogram IDENTIFYING DATA [...] of drug use. Current Medications: Ms. Morton @[facility]@ Checklist: + Dysphagia, + Esophageal diverticula, + [...] by the nurse. Time out performed. T [facility] Notes Date/Time Note Provider Source 2024-12-03 15:46:44 Access Center: EPIC Open Encounter Maintenance Encounter closed for EPIC maintenance. No activity on this encounter in the past 72 hours. Dorota Ramirez RN, BSN Access Center Triage Nurse [facility] ETARY SPECIALIST Dorota Ramirez RN [facility] 2024-10-21 17:03:52 Appointment 11/03/24 Will send two week supply. I Castellanos RN [facility] 2024-10-17 16:37:23 Refill request for Requested Prescriptions Pending Prescriptions Disp Refills midodrine 2.5 mg tablet 270 tablet 1 Sig: Take 1 tablet by mouth in the morning and 1 tablet at noon and 1 tablet in the evening. NACHO 05/07/2023, patient needs an appointment for refills. [place] 2024-10-17 09:04:45 We can switch to [facility] [place] 2024-10-13 12:04:25 NACHO 10/03/24 NOV 11/25/24 Labs 10/03/24 RX ferrous sulfate 325 mg (65 mg iron) EC tablet 10/09/24 qty 90 2 refills Please advise [facility] Brinda Monahan MA [facility] 2024-10-03 11:38:06 Done [place] 2024-10-03 11:35:[address] note on mychart. Patient seen at clinic today, may return to work 12/14/24 ETARY SPECIALIST ALEXEI-PHYSICIAN PROCESS TANK TENDER MIDLEVEL PROVIDER [facility] 2024-10-03 11:15:00 Images from the original note were not included. Venipuncture collection performed by clean technique on the right anticubitus. Total of 1 attempts were made. Slight pressure and a bandage/dressing were applied to the site(s). The patient experienced no complications. The following specimens were processed according to instructions and sent to [facility] laboratories per lab order on 10/03/2024 : LT BLUE SST 1 RED LAV 1 PPT DK GREEN (LiHep) DK GREEN (SodH) OSCAR DK BLUE (K2) DK BLUE (S) ACD Blood Culture NIPT/NTD ETARY SPECIALIST [facility] 2024-10-03 10:58:51 Patient is requesting a return to work note be uploaded to My chart I Cavanaugh [facility]2024-07-13 13:50:23* [place] [address]-09-07 10:55:44 Patient notified Adilene Castellanos RNUK HealthcareDcydls7825-75-69 10:45:48 Letter in EPIC [facility] HealthcareEflymo2124-09-72 10:31:30 Discussed disability with patient, she stated that since everything with her JAYNA came back good shedoes not have a disability. She would like to RTW on 07/03/[address] Biggs Belkis Wilder [facility]NHRMCNcnwcl9324-52-32 10:19:20 Yesterday we received a disability request. Please verify with the patient what her game plan is. If she is returning to work, what should I say in the disability form? Please describe her degree of disability and duration of disability. [facility] HealthcareOyrvox6589-60-81 14:40:48 Patient is requesting a return to work note dated July 02, 2023. Please send via [employer]. Desirae MoraUK HealthcareWskzlp1686-45-78 12:53:46 Supplementary Report of Disability Request received via fax from [facility] and placed in Dr Biggs's folder to be reviewed and signed. Shonda Andrade MAHenry [place]ille 268083-09-06 09:07:08 Cooper Morton is a 37 year old female Christine calling from [facility] She is wanting to confirm procedures Please call her [phone] Livia GonsalezHenry Ville 268083-09-01 11:51:15 Spoke with patient , She was able to speak with Colette Swift, all is taken care of Belkis Wilder [place] 484503-08-25 23:23:42 Pt given printed and verbal discharge [...] gait, in no apparent distress, Rebekah Mcqueen [facility]NHRMCZwlggw5760-58-19 18:56:25 Pt states her left arm feels numb and tingling, denies any other symptoms, ambulatory to triage anddrove herself to ED. Patient states she has hx of TIA. Clif Mittal [facility]/NHRMCDptbab5307-34-00 15:57:49 Cooper Morton is a 37 year old female Patient is calling and wanting to speak with Colette Swift and wouldn't state what it was regarding. Please assist [phone] [place] AndradeUK HealthcareUpuaum1912-69-68 17:09:41 Cooper Morton is a 37 year old femalea pt. Calling stating that she has been speaking to Colette Swift and needs a call back please advise. Thank you Shyanne De La Rosa [facility] HospitalNicolx8933-82-69 09:51:33 NACHO 05/07/23 NOV 06/19/23 " Dizziness [...] with patient NSR, low voltage" Adilene Castellanos [facility]NHRMCJnturp2239-89-65 16:17:58 Received medical records request from [facility], will send to [place] medical records for them to execute. Reach out to [place] Records for any updates. Olive Gee [facility]
--- NOTE | 2024-12-27 01:34 | EDPHYS ---
Physician Documentation [facility] Name: Larry Morton Age: 39 yrs Sex: Female : 1985 Arrival Date: 12/26/2024 Time: 23:21 Bed 12 Private MD: ED Physician Aramis Limon HPI: 12/27 00:42 This 39 yrs old Black Female presents to ER via Unassigned with complaints of Sore sb4 Throat, Difficulty Swallowing. 00:42 Patient reports sore throat and odynophagia for a week and a half. She was seen here sb4 when her symptoms started, tested negative for COVID, flu, and strep and was placed on prednisone and viscous lidocaine. She states that her symptoms never resolved or even improved. States that she feels like something is possibly stuck in her throat and makes it difficult for her to swallow. 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 - Infectious Disease History:: Denies. - Social history:: Smoking status: Patient denies any tobacco usage or history of. Patient/guardian denies using alcohol, street drugs. ROS: 00:42 Constitutional: Negative for fever, chills, and weight loss, sb4 00:42 ENT: Positive for sore throat, 00:42 All other systems are negative, Exam: 00:42 Constitutional: This is a well developed, well nourished patient who is awake, alert, sb4 and in no acute distress. Head/Face: Normocephalic, atraumatic. Eyes: Extra-ocular motions intact. Periorbital areas with no swelling, redness, or edema. ENT: Mucous membranes moist. Respiratory: No increased work of breathing, no retractions or nasal flaring. Skin: Warm, dry with normal turgor. Normal color with no rashes, no lesions, and no evidence of cellulitis. 00:42 ENT: Posterior pharynx: Airway: normal, no evidence of obstruction, patent, Tonsils: bilaterally enlarged, no erythema, no exudate, no ulcerations, Uvula: normal, midline, swelling, is not appreciated, erythema, is not appreciated, exudate, is not appreciated, peritonsillar mass, is not appreciated, Vital Signs: 01:09 BP 116 / 74; Pulse 59; Resp 18; Temp 97.6; Pulse Ox 100% on R/A; Weight 81.65 kg; br2 Height 5 ft. 4 in. ; Pain 10/10; 01:09 Body Mass Index 30.90 (81.65 kg, 162.56 cm) br2 01:09 Pain Scale: Adult br2 MDM: 12/26 23:26 Medical Screening Exam initiated sb4 12/27 01:09 Data reviewed: vital signs, nurses notes, radiologic studies, and as a result, I will sb4 discharge patient. Independent interpretation of the following test(s) in the Emergency Department X-Ray: My interpretation is my interpretation of the soft tissue neck xray is no foreign body or obstruction noted. Counseling: I had a detailed discussion with the patient and/or guardian regarding the historical points, exam findings, and any diagnostic results supporting the discharge/admit diagnosis, radiology results, the need for outpatient follow up, an ENT specialist, to return to the emergency department if symptoms worsen or persist or if there are any questions or concerns that arise at home. 12/27 00:18 Order name: Neck Soft Tissue XRAY sb4 Administered Medications: No medications were administered Disposition: 05:11 Co-signature as Attending Physician, Aramis Limon MD I reviewed the patient's care rn provided by the Advanced Practice Provider and agree with the diagnosis and treatment plan. Disposition Summary: 12/27/24 01:33 Discharge Ordered Notes: Location: Home sb4 Problem: an ongoing problem sb4 Symptoms: are unchanged sb4 Condition: Stable sb4 Diagnosis - Odynophagia sb4 Followup: sb4 - With: Shonda Mascorro MD - When: 2 - 3 days - Reason: Further diagnostic work-up, Recheck today's complaints, Re-evaluation by your physician Discharge Instructions: - Discharge Summary Sheet sb4 - Sore Throat, Lwjn-gu-Npdg sb4 - Globus Pharyngeus sb4 Forms: - Antibiotic Education sb4 - Patient Portal Instructions sb4 - Leadership Thank You Letter sb4 Prescriptions: - Amoxicillin 875 mg Oral Tablet - take 1 tablet ORAL route every 12 hours for 10 days; 20 tablet; Refills: 0, sb4 Product Selection Permitted - Protonix 40 mg Oral Tablet - take 1 tablet ORAL route once daily; 30 tablet; Refills: 0, Product Selection sb4 Permitted Signatures: Dispatcher [employer] Aramis Cevallos MD MD rn Brown, Sophia, PA-C PA-C sb4 Millicent Sotelo RN RN br2
--- NOTE | 2024-12-27 01:34 | ER ---
Nurse's Notes [facility] Name: Larry Morton Age: 39 yrs Sex: Female : 1985 Arrival Date: 12/26/2024 Time: 23:21 Bed 12 Private MD: Diagnosis: Odynophagia Presentation: 12/27 01:09 Chief complaint: Patient states: C/O SORE THROAT FOR THE LAST 4 WEEKS. PT HAS BEEN TO br2 ER FOR SAME SYMPTOMS AND STATES NOT GETTING BETTER. Coronavirus screen: Client denies travel out of the [place] in the last 14 days. Ebola Screen: Patient denies exposure to infectious person. Initial Sepsis Screen: Does the patient meet any 2 criteria? No. Patient's initial sepsis screen is negative. Does the patient have a suspected source of infection? No. Patient's initial sepsis screen is negative. Risk Assessment: Do you want to hurt yourself or someone else? Patient reports no desire to harm self or others. Onset of symptoms was November 29, 2024. 01:09 Method Of Arrival: Ambulatory br2 01:09 Acuity: CELESTINO 4 br2 Triage Assessment: 01:11 General: Appears in no apparent distress. uncomfortable, Behavior is calm, cooperative. br2 Pain: Complains of pain in neck Pain currently is 10 out of 10 on a pain scale. EENT: Reports difficulty swallowing SORE THROAT FOR 4 WEEKS. 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 - Infectious Disease History:: Denies. - Social history:: Smoking status: Patient denies any tobacco usage or history of. Patient/guardian denies using alcohol, street drugs. Screenin:09 [facility] ED Fall Risk Assessment (Adult) History of falling in the last 3 months, br2 including since admission No falls in past 3 months (0 pts) Confusion or Disorientation No (0 pts) Intoxicated or Sedated No (0 pts) Impaired Gait No (0 pts) Mobility Assist Device Used No (0 pt) Altered Elimination No (0 pt) Score/Fall Risk Level 0 - 2 = Low Risk Oriented to surroundings. Abuse screen: Denies threats or abuse. Denies injuries from another. Nutritional screening: No deficits noted. Tuberculosis screening: No symptoms or risk factors identified. Assessment: 01:09 Reassessment: SEE TRIAGE ASSESSMENT. br2 01:09 Respiratory: Airway is patent Respiratory effort is even, unlabored, Respiratory br2 pattern is regular, symmetrical. EENT: Throat is clear. Vital Signs: 01:09 BP 116 / 74; Pulse 59; Resp 18; Temp 97.6; Pulse Ox 100% on R/A; Weight 81.65 kg; br2 Height 5 ft. 4 in. ; Pain 10/; 01:09 Body Mass Index 30.90 (81.65 kg, 162.56 cm) br2 01:09 Pain Scale: Adult br2 ED Course: 12/26 23:23 Patient arrived in ED. gm2 23:24 Kandy Collins PA-C is PHCP. sb4 23:24 Aramis Limon MD is Attending Physician. sb4 12/27 01:09 Millicent Sotelo RN is Primary Nurse. br2 01:09 Patient has correct armband on for positive identification. Bed in low position. Call br2 light in reach. Side rails up X 1. Provided Education on: PLAN OF CARE. 01:11 Triage completed. br2 01:11 Arm band placed on. br2 01:13 Neck Soft Tissue XRAY In Process Unspecified. EDMS 01:33 Shonda Mascorro MD is Referral Physician. sb4 01:38 No provider procedures requiring assistance completed. Patient did not have IV access br2 during this emergency room visit. Administered Medications: No medications were administered Medication: 01:09 VIS not applicable for this client. br2 Outcome: 01:33 Discharge ordered by . sb4 01:38 Discharged to home ambulatory, br2 01:38 Condition: good 01:38 Discharge instructions given to patient, Instructed on discharge instructions, follow up and referral plans. Demonstrated understanding of instructions, follow-up care, medications, Prescriptions given X 2, 01:38 Patient left the ED. br2 Signatures: Dispatcher [employer] EDMS Kandy Collins PA-C PA-C sb4 Magali Bond gm2 Millicent Sotelo RN RN br2 Corrections: (The following items were deleted from the chart) 01:59 01:58 Reassessment: SEE TRIAGE ASSESSMENT br2 br2 02:03 02:02 Patient left the ED. br2 br2
[2024-12-27 02:08] VITALS: BP 116/74; TEMP 97.6; O2SAT 100
--- NOTE | 2024-12-27 02:49 | RAD REPORT ---
EXAM: XR Soft Tissue Neck CLINICAL HISTORY: The patient is 39 years old and is Female; FB eval TECHNIQUE: Frontal and lateral views of the soft tissues of the neck. COMPARISON: No relevant prior studies available. FINDINGS: AIRWAY: Unremarkable. No abnormal narrowing. BONES/JOINTS: Unremarkable. No acute fracture. SOFT TISSUES: Unremarkable. No abnormal soft tissue prominence. Normal epiglottis. IMPRESSION: Normal soft tissues of the neck. No radiopaque foreign body. Electronically signed by: Marivel Colon MD 12/27/2024 02:41 AM [facility] Due to temporary technical issues with the PACS/[facility] reporting system, reports are being michelle d by the in-house radiologist without review as a courtesy to ensure prompt reporting the interpreting radiologist is fully responsible for the content of the report. Transcribed Date/Time: 12/27/2024 2:49 AM
== END 2024-12-27 02:02 | disposition home or self-care (01) ==
LOC: ER 23:21
DX: R13.10 Dysphagia, unspecified (principal)
CPT/HCPCS: 70360; 99283

== ENCOUNTER 2025-02-02 22:15 | Emergency (ER) | payer SELFPAY ==
--- OUTSIDE RECORDS SUMMARY | 2025-02-02 22:19 | XMS REPORT | Continuity of Care Document ---
Author Name Unknown Address [address] [facility] [place] [address] [facility] [place] [facility] [address] [facility] [place] [address] Care Team Providers Care Purse Maker Name Role Phone Lola Goldstein Primary Care Physician [phone] Steve Restrpeo PA-C Attending Clinician [phone] LOLA BAPTISTE Attending Clinician Unavailable Doctor Unassigned, Ina Attending Clinician U LEANDRA Soriano Attending Clinician Unavailable JESSICA TOBAR Attending Clinician UnavailLeandra Jang MD Attending Clinician [phone] Lola Goldstein Attending Clinician [phone] Lab, Ang - Db Attending Clinician Unavailable STEVE RESTREPO Attending Clinician Unavailable Myke Whitehead MD Attending Clinician [phone] Leandra Biggs MD Attending Clinician [phone] NI CASSIDY Attending Clinician NI Bynum Attending Clinician MARGARITO Ye Attending Clinician UnavailMARGARITO Hill Attending Clinician UnavailLola Peterson Attending Clinician [phone] Lab, Ang - Db Attending Clinician Unavailable Doctor Unassigned, Ina Attending Clinician U MITZI Christian Attending Clinician Unavailable Mitzi Mcbride MD Attending Clinician [phone] Sheryl Wooten PA-C Attending Clinician [phone] MITZI MCBRIDE Admitting Clinician Unavailable Payers Payer Name Policy Type Policy Number Effective Date Expirati on Date Source PHCS GENERIC [id number] 2022 00:00:00 2022-10 00:00:00 Problems Condition Name Condition Details Condition Category Status Onset Date Resolution Date Last Treatment Date Treating Clinician Comments Source Vitamin D deficiency Vitamin D deficiency Disease Active 07-09 00:00: 00 [facility] Obesity (BMI 30.0-34.9) Obesity (BMI 30.0-34.9) Disease Active 07-09 00:00: 00 [facility] Status post gastric bypass for obesity Status post gastric bypass for obesity Disease Active 07-09 00:00: 00 [facility] NSVT (nonsustai faith ventricula r tachycardi a) NSVT (nonsustai faith ventricula r tachycardi a) Disease Active 05-07 00:00: 00 [facility] PFO (patent foramen ovale) PFO (patent foramen ovale) Disease Active 05-07 00:00: 00 [facility] Obesity due to excess calories, unspecifie d classifica tion, unspecifie d whether serious comorbidit y present Obesity due to excess calories, unspecifie d classifica tion, unspecifie d whether serious comorbidit y present Disease Active 03-09 00:00: 00 [facility] Obesity due to excess calories, unspecifie d classifica tion, unspecifie d whether serious comorbidit y present Obesity due to excess calories, unspecifie d classifica tion, unspecifie d whether serious comorbidit y present Disease Active 03-09 00:00: 00 [facility] Orthostati c hypotensio n Orthostati c hypotensio n Disease Active 03-09 00:00: 00 [facility] Obesity (BMI 30-39.9) Obesity (BMI 30-39.9) Disease Active 03-09 00:00: 00 [facility] History of transient ischemic attack (TIA) History of transient ischemic attack (TIA) Disease Active 03-09 00:00: 00 [facility] Dizziness and giddiness Dizziness and giddiness Disease Active 03-09 00:00: 00 [facility] Sinus bradycardi a Sinus bradycardi a Disease Active 03-09 00:00: 00 [facility] Allergies, Adverse Reactions, Alerts Allergy Name Allergy Type Status Severity Reaction(s) Onset Date Inactive Date Treating Clinician Comments Source NO KNOWN ALLERGIE S Drug Class Active [facility] Social History Social Habit Start Date Stop Date Quantity Comments Source Gender identity 2024-01-12 09:02:59 Identifies as female gender (finding[facility] Sexual orientation [facility] History SDOH Alcohol Std Drinks [facility] History SDOH Alcohol Binge [facility] Alcoholic beverage intake 2024-10-03 00:00:00 2024-10-03 00:00:00 Ex-drinker (finding) [facility] Alcohol intake 2023-07-09 00:00:00 2023-07-09 00:00:00 Ex-drinker (finding) [facility] Tobacco use and exposure 2023-05-07 00:00:00 2023-05-07 00:00:00 Smokeless tobacco non-user [facility] History of Social function 2023-04-10 00:00:00 2023-04-10 00:00:00 [facility] Exposure to SARS-CoV-2 (event) 2023-02-27 00:00:00 2023-03-09 08:25:00 Not sure [facility] History SDOH Alcohol Frequency 2019-07-02 00:00:00 2019-07-02 00:00:00 1 [facility] Sex assigned at 1985 00:00:00 1985 00:00:00 [facility] Smoking Status Start Date Stop Date Source Never smoked tobacco [facility] Medications Ordered Medication Name Filled Medication Name Start Date Stop Date Current Medication? Ordering Clinician Indication Dosage Frequency Signature (SIG) Comments Components Source midodrine 2.5 mg tablet 2023-10 2-31 00:00: 00 11-06 05:59 :00 No [id number] 2.5mg Take 1 tablet by mouth in the morning and 1 tablet at noon and 1 tablet in the evening. Do all this for 15 days. [facility] ferrous sulfate 325 mg (65 mg iron) EC tablet 2023-10 2 00:00: 00 Yes [id number] 325mg Take 1 tablet by mouth in the morning and 1 tablet at noon and 1 tablet in the evening. Take with meals. [facility] ferrous sulfate 325 mg (65 mg iron) EC tablet 2023-10 2 00:00: 00 10-13 00:00 :00 No [id number] 325mg Take 1 tablet by mouth in the morning and 1 tablet at noon and 1 tablet in the evening. Take with meals. [facility] atorvastati n (Lipitor) 40 MG tablet atorvastati n (Lipitor) 40 MG tablet 05-03 00:00: 00 Yes 40mg TAKE 1 TABLET BY MOUTH EVERYDAY AT BEDTIME Samanta Mckeon [facility] midodrine 2.5 mg tablet 5 00:00: 00 10-13 00:00 :00 No [id number] 2.5mg Take 1 tablet by mouth in the morning and 1 tablet at noon and 1 tablet in the evening. [facility] midodrine 2.5 mg tablet 07-13 00:00: 00 03-10 00:00 :00 No [id number] 2.5mg Take 1 tablet by mouth in the morning and 1 tablet at noon and 1 tablet in the evening. [facility] ferrous sulfate (IRON) 325 mg (65 mg iron) tablet 07-09 13:10: 09 07-09 00:00 :00 No 325mg Take 1 tablet by mouth in the morning and 1 tablet at noon and 1 tablet in the evening. Take with meals. [facility] foLIC acid 1 mg tablet 07-09 13:09: 20 Yes 1mg Take 1 tablet by mouth in the morning. [facility] midodrine 2.5 mg tablet 08 00:00: 00 07-13 00:00 :00 No [id number] 2.5mg Take 1 tablet by mouth in the morning and 1 tablet at noon and 1 tablet in the evening. [facility] foLIC acid 1 mg tablet 06-22 06:59: 44 Yes 1mg Take 1 tablet by mouth in the morning. [facility] ferrous sulfate (IRON) 325 mg (65 mg iron) tablet 06-22 06:59: 44 Yes 325mg Take 1 tablet by mouth in the morning and 1 tablet at noon and 1 tablet in the evening. Take with meals. [facility] midodrine 2.5 mg tablet 810 00:00: 00 06-29 00:00 :00 No [id number] 2.5mg Take 1 tablet by mouth in the morning and 1 tablet at noon and 1 tablet in the evening. [facility] midodrine 2.5 mg tablet 17 00:00: 00 05-31 00:00 :00 No [id number] 2.5mg Take 1 tablet by mouth in the morning and 1 tablet at noon and 1 tablet in the evening. [facility] foLIC acid 1 mg tablet 03-09 08:45: 47 Yes 1mg Take 1 tablet by mouth in the morning. [facility] ferrous sulfate (IRON) 325 mg (65 mg iron) tablet 03-09 08:45: 47 Yes 325mg Take 1 tablet by mouth in the morning and 1 tablet at noon and 1 tablet in the evening. Take with meals. [facility] aspirin 81 mg EC tablet 5-04 00:00: 00 Yes 81mg Take 1 tablet by mouth in the morning. [facility] atorvastati n 40 mg tablet 4-27 00:00: 00 Yes 40mg Take 1 tablet by mouth at bedtime. [facility] ibuprofen (MOTRIN) 600 mg tablet 12 00:00: 07-09 00:00 :00 No 600mg Take 1 tablet by mouth every 6 (six) hours as needed for Pain (scale 4-6). [facility] Immunizations Ordered Immunization Name Filled Immunization Name Date Status Comments Source SARS-COV-2 COVID-19 PFIZER VACCINE 2021-05-14 00:00:00 Completed [facility] SARS-COV-2 COVID-19 PFIZER VACCINE 2021-05-14 00:00:00 Completed SARS-COV-2 COVID-19 PFIZER VACCINE 2021-04-22 00:00:00 Completed [facility] SARS-COV-2 COVID-19 PFIZER VACCINE 2021-04-22 00:00:00 Completed SARS-COV-2 COVID-19 PFIZER VACCINE Unknown Completed [facility] SARS-COV-2 COVID-19 PFIZER VACCINE Unknown Completed [facility] SARS-COV-2 COVID-19 PFIZER VACCINE Unknown Completed [facility] SARS-COV-2 COVID-19 PFIZER VACCINE Unknown Completed [facility] SARS-COV-2 COVID-19 PFIZER VACCINE Unknown Completed [facility] SARS-COV-2 COVID-19 PFIZER VACCINE Unknown Completed [facility] SARS-COV-2 COVID-19 PFIZER VACCINE Unknown Completed [facility] SARS-COV-2 COVID-19 PFIZER VACCINE Unknown Completed [facility] Vital Signs Vital Name Observation Time Observation Value Comments S ource Systolic blood pressure 2024-10-03 15:41:00 105 mm[Hg] [facility] Diastolic blood pressure 2024-10-03 15:41:00 54 mm[Hg] [facility] Heart rate 2024-10-03 15:41:00 70 /min [facility] Body temperature 2024-10-03 15:41:00 37 Wen [facility] Body height 2024-10-03 15:41:00 162.6 cm [facility] Body weight 2024-10-03 15:41:00 83.462 kg [facility] BMI 2024-10-03 15:41:00 31.58 kg/m2 [facility] Oxygen saturation in Arterial blood by Pulse oximetry 2024-10-03 15:41:00 100 /min [facility] Systolic blood pressure 2023-07-09 18:10:00 104 mm[Hg] [facility] Diastolic blood pressure 2023-07-09 18:10:00 67 mm[Hg] [facility] Heart rate 2023-07-09 18:10:00 65 /min [facility] Body height 2023-07-09 18:10:00 162.6 cm [facility] Body weight 2023-07-09 18:10:00 89.359 kg [facility] BMI 2023-07-09 18:10:00 33.81 kg/m2 [facility] Oxygen saturation in Arterial blood by Pulse oximetry 2023-07-09 18:10:00 100 /min [facility] Body height 2023-06-22 13:51:00 162.6 cm [facility] Body weight 2023-06-22 13:51:00 86.183 kg [facility] BMI 2023-06-22 13:51:00 32.61 kg/m2 [facility] Systolic blood pressure 2023-06-22 13:15:00 121 mm[Hg] [facility] Diastolic blood pressure 2023-06-22 13:15:00 72 mm[Hg] [facility] Heart rate 2023-06-22 13:15:00 60 /min [facility] Respiratory rate 2023-06-22 13:15:00 21 /min [facility] Oxygen saturation in Arterial blood by Pulse oximetry 2023-06-22 13:15:00 100 /min [facility] Body temperature 2023-06-22 12:05:00 36.61 Wen [facility] Systolic blood pressure 2023-06-16 03:00:00 103 mm[Hg] [facility] Diastolic blood pressure 2023-06-16 03:00:00 61 mm[Hg] [facility] Heart rate 2023-06-16 03:00:00 72 /min [facility] Respiratory rate 2023-06-16 03:00:00 16 /min [facility] Oxygen saturation in Arterial blood by Pulse oximetry 2023-06-16 03:00:00 98 /min [facility] Body temperature 2023-06-15 23:57:00 37.22 Wen [facility] Body height 2023-06-15 23:57:00 162.6 cm [facility] Body weight 2023-06-15 23:57:00 86.183 [facility] 2023-06-15 23:57:00 32.61 kg/m2 [facility] Systolic blood pressure 2023-05-07 19:25:00 107 mm[Hg] [facility] Diastolic blood pressure 2023-05-07 19:25:00 70 mm[Hg] [facility] Heart rate 2023-05-07 19:25:00 54 /min [facility] Respiratory rate 2023-05-07 19:25:00 16 /min [facility] Body height 2023-05-07 19:25:00 162.6 cm [facility] Body weight 2023-05-07 19:25:00 86.592 kg [facility] BMI 2023-05-07 19:25:00 32.77 kg/m2 [facility] Oxygen saturation in Arterial blood by Pulse oximetry 2023-05-07 19:25:00 98 /min [facility] Systolic blood pressure 2023-03-09 13:52:00 110 mm[Hg] [facility] Diastolic blood pressure 2023-03-09 13:52:00 68 mm[Hg] [facility] Heart rate 2023-03-09 13:52:00 71 /min [facility] Body height 2023-03-09 13:52:00 162.6 cm [facility] Body weight 2023-03-09 13:52:00 85.957 kg [facility] BMI 2023-03-09 13:52:00 32.53 kg/m2 [facility] Oxygen saturation in Arterial blood by Pulse oximetry 2023-03-09 13:52:00 99 /min [facility] Systolic blood pressure 2019-07-02 20:30:00 137 mm[Hg] [facility] Diastolic blood pressure 2019-07-02 20:30:00 91 mm[Hg] [facility] Heart rate 2019-07-02 20:30:00 90 /min [facility] Body temperature 2019-07-02 20:30:00 36.83 Wen [facility] Respiratory rate 2019-07-02 20:30:00 18 /min [facility] Body height 2019-07-02 20:30:00 162.6 cm [facility] Body weight 2019-07-02 20:30:00 155.13 kg [facility] BMI 2019-07-02 20:30:00 58.70 kg/m2 [facility] Procedures Procedure Date / Time Performed Performing Clinician Source IRON PANEL 2024-10-03 16:10:00 Steve Restrepo [facility] CBC WITH DIFF 2024-10-03 16:10:00 Steve Restrepo [facility] MEDICAL RELEASE/CLEARANCE FORMS 2023-07-11 05:01:00 Doctor Unassigned, Ina [facility] TRANSESOPHAGEAL ECHO (JAYNA) COMPLETE W/ DOPPLER AND COLOR 2023-06-22 12:39:00 Leandra Biggs [facility] TRANSESOPHAGEAL ECHO 2023-06-22 05:01:00 Doctor Unassigned, Ina [facility] CT HEAD WO CONTRAST 2023-06-16 02:18:15 Mitzi Mcbride [facility] TROPONIN I 2023-06-16 01:41:00 Mitzi Mcbride [facility] COMP. METABOLIC PANEL ([id number]) 2023-06-16 01:41:00 Mitzi Mcbride [facility] CBC WITH DIFF 2023-06-16 01:41:00 Mitzi Mcbride [facility] N-TERMINAL PRO-BNP 2023-06-16 01:41:00 Mitzi Mcbride [facility] POCT TEST 2023-06-16 01:31:00 Mitzi Mcbride [facility] URINALYSIS 2023-06-16 01:29:00 Mitzi Mcbride [facility] INSURANCE CORRESPONDENCE 2023-04-20 05:01:00 Doc tor Unassigned, Ina [facility] PHYSICIAN CERTIFICATION STATEMENT 2023-04-07 05:01:00 Doctor Unassigned, Ina [facility] HB ECG ROUTINE & RHYTHM STRIP 2023-03-09 13:49:18 Leandra Biggs [facility] CONSENT/REFUSAL FOR DIAGNOSIS AND TREATMENT 2023-03-09 13:26:58 Doctor Unassigned, Ina [facility] REFERRAL- REQUEST/RESPONSE 2023-03-01 05:01:00 D cameronor Unassigned, Ina [facility] Encounters Start Date/Time End Date/Time Encounter Type Admission Type Attending [facility] Care Facility Care Department Encounter ID Source 2024-10-03 00:00:00 2024-12-03 15:49:21 Telephone Steve Restrepo [facility] BUILDING 1.2.840.114 350.1.13.10 4.2.7.2.686 [id number] [facility] 2024-11-25 15:30:00 2024-11-25 15:30:00 Outpatient LOLA ESPINOZA [facility] [id number] [facility] 2024-10-10 00:00:00 2024-11-15 18:18:32 Patient Secure Msg Doctor Unassigned, Ina Doctor Unassigned, Ina [facility] 1.2.840.114 350.1.13.10 4.2.7.2.686 [id number] [facility] 2024-11-03 11:00:00 2024-11-03 11:00:00 Outpatient LEANDRA KNIGHT [facility] [id number] [facility] 2024-10-23 09:00:00 2024-10-23 09:00:00 Outpatient JESSICA JONES [facility] [id number] [facility] 2024-10-13 00:00:00 2024-10-21 17:04:51 Kylee BiggsLeandra [facility] 1.2.840.114 350.1.13.10 4.2.7.2.686 [id number] [facility] 2024-10-21 14:00:00 2024-10-21 14:00:00 Outpatient R DIAN USHADARLINE [facility] [id number] [facility] 2024-10-13 00:00:00 2024-10-20 15:33:00 Patient Secure Steve Stone [facility] [place] MED[facility] OFF[facility] BUILDING 1.2.840.114 350.1.13.10 4.2.7.2.686 [id number] [facility] 2024-10-13 00:00:00 2024-10-17 08:19:52 Refyolanda Restrepo Steve [facility] [place] OFF[facility] BUILDING 1.2.840.114 350.1.13.10 4.2.7.2.686 [id number] [facility] 2024-10-13 00:00:00 2024-10-13 08:42:53 Telephone Lola Baptiste [facility] [place] BUILD[facility] 1.2.840.114 350.1.13.10 4.2.7.2.686 [id number] [facility] 2024-10-03 00:00:00 2024-10-03 11:38:17 Telephone Steve Restrepo [facility] [place] 1.2.840.114 350.1.13.10 4.2.7.2.686 [id number] [facility] 2024-10-03 11:15:00 2024-10-03 11:15:00 Machine Tailer Visit Lab, Steve Lomas Lab, Ang - Db [facility] OFF[facility] BUILDING 1.2.840.114 350.1.13.10 4.2.7.2.686 [id number] [facility] 2024-10-03 10:30:00 2024-10-03 10:30:00 Office Visit Katelyn Restrepon [facility] OFFICE BUILDING 1.2.840.114 350.1.13.10 4.2.7.2.686 [id number] [facility] 2024-10-03 10:30:00 2024-10-03 10:05:21 Outpatient R STEVE RESTREPO [facility] [id number] [facility] 2024-05-03 00:00:00 2024-05-03 13:50:13 Refill Myke Whitehead 1.2.840.114 350.1.13.70 8.2.7.2.686 [id number] Samanta Mckeon [facility] 2024-04-03 14:00:00 2024-04-03 14:00:00 Outpatient LOLA ESPINOZA [facility] [id number] [facility] 2024-03-10 00:00:00 2024-03-31 13:31:05 RefLeandra Castellanos [facility] NAL [facility] 1..840.114 350.1.13.10 4.2.7.2.686 [id number] [facility] 2024-03-11 09:30:00 2024-03-11 09:30:00 Outpatient NI HANDLEY MARISOL [facility] [id number] [facility] 2024-03-10 10:02:18 2024-03-10 10:02:18 Outpatient KARLEY CRANDALL [id number] [facility] 2023-08-13 15:30:00 2023-08-13 15:30:00 Outpatient R MARGARITO CORONADO CHERYAL [facility] [id number] [facility] 2023-07-13 00:00:00 2023-07-13 00:00:[facility] 1.840.114 350.1.13.10 4.2.7.2.686 [id number] [facility] 2023-07-12 00:00:00 2023-07-12 00:00:00 Patient Secure Msg Baptiste [facility] [place] 1.284.114 350.1.13.10 4.2.7.2.686 [id number] [facility] 2023-07-12 00:00:00 2023-07-12 00:00:00 Patient Secure [facility] 1.84.114 350.1.13.10 4.2.7.2.686 [id number] [facility] 2023-07-11 16:30:00 2023-07-11 16:52:09 [id number] 2023-07-11 16:30:00 2023-07-11 16:45:00 Machine Tailer Visit Lab, Otto Silva [facility] BU[facility] 1.84.114 350.1.13.10 4.2.7.2.686 [id number] [facility] 2023-07-11 00:00:00 2023-07-11 00:00:00 Telephone DianLeandra [facility] BUILDING 1.84.114 350.1.13.10 4.2.7.2.686 [id number] [facility] 2023-07-11 00:00:00 2023-07-11 00:00:00 Orders Only Doctor Unassigned, Ina [facility] 1.2840.114 350.1.13.10 4.2.7.2.686 [id number] [facility] 2023-07-09 13:00:00 2023-07-09 15:42:52 Outpatient R LOLA BAPTISTE [facility] [id number] [facility] 2023-07-09 13:00:00 2023-07-09 13:30:00 [facility] 1.284.114 350.1.13.10 4.2.7.2.686 [id number] [facility] 2023-07-02 09:00:00 2023-07-02 09:00:00 Outpatient R LOLA BAPTISTE [facility] [id number] [facility] 2023-06-29 00:00:00 2023-06-29 00:00:00 Refill Dian [facility] BUILDING 1.284.114 350.1.13.10 4.2.7.2.686 [id number] [facility] 2023-06-27 00:00:00 2023-06-27 00:00:00 Telephone Dian [facility] BUILDING 1.284.114 350.1.13.10 4.2.7.2.686 [id number] [facility] 2023-06-27 00:00:00 2023-06-27 00:00:00 Telephone Dian [facility] BUILDING 1.20.114 350.1.13.10 4.2.7.2.686 [id number] [facility] 2023-06-27 00:00:00 2023-06-27 00:00:00 Telephone Dian [facility] BUILDING 1..840.114 350.1.13.10 4.2.7.2.686 [id number] [facility] 2023-06-22 06:48:53 2023-06-22 23:59:00 Outpatient R DIAN [facility] [id number] [facility] 2023-06-22 06:48:53 2023-06-22 23:59:00 Hospital Encounter Dian [facility] 1..840.114 350.1.13.10 4.2.7.2.686 [id number] [facility] 2023-06-19 13:40:00 2023-06-19 13:40:00 [id number] 2023-06-15 18:59:00 2023-06-15 23:24:00 Emergency X MITZI MCBRIDE [facility] [id number] [facility] 2023-06-15 18:59:00 2023-06-15 23:24:00 Emergency Mitzi Mcbride [facility] 1..840.114 350.1.13.10 4.2.7.2.686 [id number] [facility] 2023-06-05 00:00:00 2023-06-05 00:00:00 Outpatient R DIAN [facility] [id number] [facility] 2023-06-04 00:00:00 2023-06-04 00:00:00 Telephone Dian [facility] BUILDING 1..840.114 350.1.13.10 4.2.7.2.686 [id number] [facility] 2023-05-30 00:00:00 2023-05-30 00:00:00 [facility] 1.2.840.114 350.1.13.10 4.2.7.2.686 [id number] [facility] 2023-05-11 00:00:00 2023-05-11 00:00:00 [facility] 1.2.840.114 350.1.13.10 4.2.7.2.686 [id number] [facility] 2023-05-07 14:20:00 2023-05-07 14:40:00 Office [facility] 1.2.840.114 350.1.13.10 4.2.7.2.686 [id number] [facility] 2023-05-07 14:20:00 2023-05-07 14:20:00 [id number] 2023-05-01 00:00:00 2023-05-01 00:00:00 Patient Secure Msg Dian [facility] 1.2.840.114 350.1.13.10 4.2.7.2.686 [id number] [facility] 2023-04-27 00:00:00 2023-04-27 00:00:00 Telephone Dian [facility] 1.2.840.114 350.1.13.10 4.2.7.2.686 [id number] [facility] 2023-04-20 00:00:00 2023-04-20 00:00:00 [facility]phone [facility] 1.2.840.114 350.1.13.10 4.2.7.2.686 [id number] [facility] 2023-04-20 00:00:00 2023-04-20 00:00:00 Orders Only Doctor Unassigned, Ina [facility] 1.2.840.114 350.1.13.10 4.2.7.2.686 [id number] [id number] [facility] 2023-04-13 00:00:00 2023-04-13 00:00:00 [facility]phone [facility] 1.2.840.114 350.1.13.10 4.2.7.2.686 [id number] 059 [id number] [facility] 2023-04-07 00:00:00 2023-04-07 00:00:00 Orders Only Doctor Unassigned, Ina [facility] 1.2.840.114 350.1.13.10 4.2.7.2.686 [id number] [id number] [facility] 2023-04-05 00:00:00 2023-04-05 00:00:00 Telephone Dian [facility] 1.2.840.114 350.1.13.10 4.2.7.2.686 [id number] [id number] [facility] 2023-03-30 00:00:00 2023-03-30 00:00:00 Telephone [facility] 1.2.840.114 350.1.13.10 4.2.7.2.686 [id number] 059 [id number] [facility] 2023-03-29 15:01:56 2023-03-29 23:59:00 [facility] [id number] [facility] 2023-03-13 00:00:00 2023-03-13 00:00:00 Telephone Leandra Biggs [facility] 1.2.840.114 350.1.13.10 4.2.7.2.686 [id number] [facility] 2023-03-09 09:40:00 2023-03-09 09:40:00 Office Visit [facility] 1.2.840.114 350.1.13.10 4.2.7.2.686 [id number] [facility] 2023-03-09 09:40:00 2023-03-09 09:16:01 [id number] 2023-03-09 00:00:00 2023-03-09 00:00:00 Orders Only Doctor Unassigned, Ina [facility] 1.2.840.114 350.1.13.10 4.2.7.2.686 [id number] [id number] [facility] 2023-03-08 13:57:51 2023-03-08 13:57:51 Outpatient [facility] [id number] 2023-03-01 09:56:01 2023-03-01 09:56:01 Outpatient [facility] [id number] 2023-03-01 00:00:00 2023-03-01 00:00:00 Orders Only Doctor Unassigned, Ina [facility] 1.2.840.114 350.1.13.10 4.2.7.2.686 [id number] [id number] [facility] 2023-02-22 10:00:22 2023-02-22 10:00:22 Outpatient [facility] [id number] 2023-02-16 14:11:58 2023-02-16 14:11:58 Outpatient [facility] [id number] 2019-07-08 00:00:00 2019-07-08 00:00:00 Case Management Sheryl Wooten [facility] 1.2.840.114 350.1.13.10 4.2.7.2.686 [id number] [facility] 2019-07-02 15:20:19 2019-07-02 15:54:38 Office Visit Sheryl Wooten [facility] 1.2.840.114 350.1.13.10 4.2.7.2.686 [id number] [facility] Results Test Description Test Time Test Comments Results Result Co mments Source [facility] [id number] 21:30:08* Test Item Value Reference Range Interpretation Comme nts IRON (test code = 9749807972) 31 ug/dL 50-160 L TIBC (test code = 5091232595) 468 ug/dL 250-410 H % FE SAT (test code = 1050306116) 7 % 20-50 L Lab Interpretation (test cod e = 70938-8) Abnormal [facility]ics[facility] (JAYNA)2023-06-22 19:13:01 * Test Item Value Reference Range Interpretation Comme nts Height (test code = 9818925261) 54 in Weight (test code = 4831230195) 190 lbs Systolic BP (test code = 9948842097) 118 mmHg Diastolic BP (test code = 4637697062) 73 mmHg Heart Rate (test code = 5621241398) 58 bpm Radiology Study observation (narrative) (test code = 27999-3) MIRACLE (test code = MIRACLE) ?Left?Ventricle: Left [...] shunt. The probe was inserted by the inhalation therapy aides teacher. There was no probe insertion difficulty.There were 1 attempts to insert the probe. Probe in 730. Probe out 739. Sedation and monitoring provided by anesthesia, see Epic documentation. 4% Lidocaine was used for local oropharyngeal anesthesia. There were no complications during the procedure. [facility] ClinicsJUAN FRANCISCO [id number] 02:33:33* Test Item Value Reference Range Interpretation Comme nts TROPONIN I (test code = 7855993703) <=0.034 MIRACLE (test code = MIRACLE) Reference [...] of biotin. Lab Interpretation (test code = 67675-2) Normal [facility] WITH [id number] 02:33:12* Test Item Value Reference Range Interpretation Comme nts WBC (test code = 6690-2) 5.61 See_Comment [Automated [employer] ge] The system which generated this result transmitted reference range: 4.30 - 11.10 10*3/?L. The reference range was not used to interpret this result as normal/abnormal. RBC (test code = 789-8) 4.17 See_Comment [Automated [employer] ge] The system which generated this result [...] 33.3 g/dL 31.6-35.1 RDW-SD (test code = 64714-8) 51.8 fL 39.0-49.9 H RDW-CV (test code = 788-0) 15.6 % 12.0-15.5 H PLT (test code = 777-3) 209 See_Comment [Automated [employer] ge] The system which generated this result transmitted reference range: 166 - 358 10*3/?L. The reference range was not used to interpret this result as normal/abnormal. MPV (test code = 92243-4) 11.8 fL 9.5-12.9 NRBC/100 WBC (test code = 6697937004) 0.0 See_Comment [Automated [employer] ssage] The system which generated this result transmitted reference range: 0.0 - 10.0 /100 WBCs. The reference range was not used to interpret this result as normal/abnormal. NRBC x10^3 (test code = 1957642802) See_Comment [Automated messa ge] The system which generated this result transmitted reference range: 10*3/?L. The reference range was not used to interpret this result as normal/abnormal. GRAN MAT (NEUT) % (test code = 770-8) 49.0 % IMM GRAN % (test code = 6282898717) 0.20 % LYMPH % (test code = 736-9) 38.3 % MONO % (test code = 5905-5) 10.5 % EOS % (test code = 713-8) 0.9 % BASO % (test code = 706-2) 1.1 % GRAN MAT x10^3(ANC) (test code = 8036317865) 2.75 10*3/uL 1.88-7.09 IMM GRAN x10^3 (test code = 0065666491) 0.00-0.06 LYMPH x10^3 (test code = 731-0) 2.15 10*3/uL 1.32-3.29 MONO x10^3 (test code = 742-7) 0.59 10*3/uL 0.33-0.92 EOS x10^3 (test code = 711-2) 0.05 10*3/uL 0.03-0.39 BASO x10^3 (test code = 704-7) 0.06 10*3/uL 0.01-0.07 Lab Interpretation (test code = 45843-9) Abnormal [facility]icsN-TERMINAL [id number] 02:31:11* Test Item Value Reference Range Interpretation Comme nts NT-proBNP (test code = 61119-3) 41 pg/mL <=125 Lab Interpretation (test cod e = 52166-2) Normal [facility] ClinicsCOMP. METABOLIC PANEL (98670)2023-06-16 02:22:09* Test Item Value Reference Range Interpretation Comme nts NA (test code = 2519229254) 140 mmol/L 135-145 K (test code = 6831926900) 4.7 mmol/L 3.5-5.0 CL (test code = 1955276914) 108 mmol/L 98-108 CO2 TOTAL (test code = 7559298421) 24 mmol/L 23-31 AGAP (test code = 1426800035) 8 2-16 BUN (test code = 7782783723) 11 mg/dL 7-23 GLUCOSE (test code = 6263218227) 70 mg/dL 70-110 CREATININE (test code = 3213104018) 0.65 mg/dL 0.50-1.04 TOTAL BILI (test code = 9118022796) 0.2 mg/dL 0.1-1.1 CALCIUM (test code = 4042597463) 8.8 mg/dL 8.6-10.6 T PROTEIN (test code = 9176662380) 7.3 g/dL 6.3-8.2 ALBUMIN (test code = 8511954686) 4.2 g/dL 3.5-5.0 ALK PHOS (test code = 0568481423) 49 U/L 34-122 ALTv (test code = 1742-6) 60 U/L 5-35 H AST(SGOT) (test code = 7108401142) 43 U/L 13-40 H eGFR (test code = 2238174823) 103.1 mL/min/1.73m2 MIRACLE (test code = MIRACLE) [...] imaging tests). Lab Interpretation (test code = 38745-1) Abnormal [facility]icsPOCT [id number] 01:31:00* Test Item Value Reference Range Interpretation Comme [facility] POCT PREG (test code = 1605) Negative On board controls acceptable with C Line (test code = 3574) Yes POCT PREG LOT # (test code = 3575) [id number] POCT PREG TEST DATE ( test code = 3576) Lab Interpretation (test cod e = 96644-5) Normal [facility] ClinicsOCCULT BLD,FECAL,IMMUNOASSAY [id number] 11:20:54* Test Item Value Reference Range Interpretation Comme [facility] OCCULT BLD, FECAL (test code = 82802) NEGATIVE NEGATIVE UNLESS OTHER PERRY INDICATED, ALL TESTING PERFORMED AT [facility] [address] [place] [address] SPECIAL EDUCATION MATH TEACHER: KATELYN GOMEZ M.D. CLIA NUMBER [id number] [facility] [place] [id number] PATHOLOGIST SMEAR [id number] 13:20:44* Test Item Value Reference Range Interpretation Comme [facility] DIAGNOSIS: (test code = 8200) (NOTE) [...] (NOTE) Katelyn Gomez M.D. (electronically signed) Diplomate, [employer] with Subspecialty Certification, Hematology CPT: (test code = 8400) 00198 WBC (test code = 1001) 4.1 K/UL [...] 0.00-0.10 ABS NUCLEATED RBCS (test code = 97468) 0.00 K/UL 0.00-0.11 COMMENTS (test code = 1016) (NOTE) MARKED ANISOCYTO SIS FEW ELLIPTOCYTES MODERATE HYPOCHROMASIA SLIGHT MICROCYTOSIS SLIGHT POIKILOCYTOSIS SLIGHT POLYCHROMASIA FEW TEAR DROP CELLS PLATELETS APPEAR INCREASED UNLESS OTHERWISE INDICATED, ALL TESTING PERFORMED AT [facility] [address] [place] [address] SPECIAL EDUCATION MATH TEACHER: KATELYN GOMEZ M.D. CLIA NUMBER [id number] [facility] [place]. [id number] HAPTOGLOBIN, [id number] 13:10:19* Test Item Value Reference Range Interpretation Comme nts HAPTOGLOBIN, QUANT (test cod e = 94903) 78 MG/DL 32-197 [id number] 07:59:28* Test Item Value Reference Range Interpretation Comme nts LDH (test code = 2224) 178 U/L 135-214 CBC W/AUTO DIFF WITH [id number] 23:14:06* Test Item Value Reference Range Interpretation [...] 0.00-0.10 ABS NUCLEATED RBCS (test code = 48438) 0.00 K/UL 0.00-0.11 COMMENTS (test code = 1016) (NOTE) MODERATE ANISOCY TOSIS MARKED HYPOCHROMASIA SLIGHT MICROCYTOSIS SLIGHT POLYCHROMASIA FEW SCHISTOCYTES PLATELETS APPEAR INCREASED RETICULOCYTE WITH [id number] 23:14:06* Test Item Value Reference Range Interpretation Comme [facility] RETICULOCYTE COUNT (test cod e = 1018) 3.68 % 0.80-2.40 H ABSOLUTE RETICULOCYTE (test code = 86797) 131.0 K/UL 32.0-105.0 H [id number] 04:46:23* Test Item Value Reference Range Interpretation Comme [facility] FERRITIN (test code = 2075) 114 NG/ML 13-200 VITAMIN B 12 AND FOLIC [id number] 04:46:23* Test Item Value Reference Range Interpretation Comme [facility] VITAMIN B-12 (test code = 2840) [...] IRON BINDING CAPACITY AND IRON AND % [id number] 23:59:13* Test Item Value Reference Range Interpretation Comme nts IRON, SERUM (test code = 2222) 25 UG/DL 37-145 L UNSATURATED IBC (test code = 20769) 445 UG/DL 112-347 H CALC TOTAL IBC (test code = 2077) 470 UG/DL 250-450 H CALC % IRON SAT (test code = 2079) 5 % 20-50 L [id number] 23:58:52* Test Item Value Reference Range Interpretation Comme nts TRANSFERRIN (test code = 4936) 377 MG/DL 200-360 H [id number] 23:58:52* Test Item Value Reference Range Interpretation Comme nts HOMOCYSTEINE (test code = 4288) 15 UMOL/L <12 H UNLESS OTHERWISE INDICATED, ALL TESTING PERFORMED AT [facility] [address] [place] [address] SPECIAL EDUCATION MATH TEACHER: KATELYN GOMEZ M.D. CLIA NUMBER [id number] [facility] [place]. [id number] MICROSCOPIC [id number] 04:53:02* Test Item Value Reference Range Interpretation Comme nts WHITE BLOOD CELLS (test code = 1513) 0-5 /HPF 0-5 RED BLOOD CELLS (test code = 1514) 0-2 /HPF 0-2 PLEASE NOTE: NEW REFERENCE RANGE EFFECTIVE 23. EPITHELIAL CELLS (test code = 47932) 6-10 /HPF 0-10 BACTERIA (test code = 1515) >3+ NONE SEEN CRYSTALS (test code = 1516) PRESENT NONE SEEN A CALCIUM OXALATE CRYSTALS CASTS, HYALINE (test code = 1517) TRACE NONE-TRACE CBC W/AUTO DIFF WITH [id number] 15:50:45* Test Item Value Reference Range Interpretation [...] 0.00-0.10 ABS NUCLEATED RBCS (test code = 47442) 0.00 K/UL 0.00-0.11 COMMENTS (test code = 1016) (NOTE) MODERATE ANISOCY TOSIS MODERATE HYPOCHROMASIA MODERATE MICROCYTOSIS PLATELETS APPEAR NORMAL TSH, THIRD [id number] 10:17:10* Test Item Value Reference Range Interpretation Comme nts TSH, THIRD GENERATION (test code = 2821) 4.160 UIU/ML 0.400-4.100 H [id number] 08:48:32* Test Item Value Reference Range Interpretation Comme nts NT-proBNP (test code = 37786) <50 PG/ML SEE BELOW If NT-ProBNP is less than 300 PG/ML, heart failure is unlikely for allages. Age.................Heart Failure Likely <50 Years...........>=450 PG/ML 50-75 Years.........>=900 PG/ML > 75 Years..........>=1800 PG/ML Methodology: [employer] Electrochemilumines[employer] Immunoassay [facility] has important pathology staff changes effective 12/20/2022. New pathology staff will provide uninterrupted, excellent patient care and clinical consultation. See URL: [email or web address] memorial hospitalAn EstuaryEstrogen Gene Test/pathology-team. UNLESS OTHERWISE INDICATED, ALL TESTING PERFORMED AT [facility] [address] [place] [address] SPECIAL EDUCATION MATH TEACHER: KATELYN GOMEZ M.D. CLIA NUMBER [id number] [facility] [place]. [id number] COMPREHENSIVE METABOLIC [id number] 06:00:01* Test Item Value Reference Range Interpretation Comme nts GLUCOSE (test code = 2217) 85 MG/DL 70-99 BUN (test code = 2208) 7 MG/DL 6-20 CREATININE (test code = 2214) 0.71 MG/DL 0.60-1.30 eGFR (2020 CKD-EPI) (test code = 19855) 113 ML/MIN/1.73 >60 CALC BUN/CREAT (test code [...] code = 2219) 31 U/L 5-40 LIPID [id number] 06:00:01* Test Item Value Reference Range Interpretation [...] SPECIMENS. FOR MOREINFORMATION, SEE CLIENT ANNOUNCEMENT AT [email or web address] RISK RATIO LDL/HDL (test code = 2238) 0.82 RATIO <3.22 HEMOGLOBIN [id number] 05:05:23* Test Item Value Reference Range Interpretation Comme nts HEMOGLOBIN A1c (test code = 37065) 5.3 % 4.2-5.6 History and Physical Notes Date/Time Note Provider Source 2023-06-22 07:00:00 Formatting of this n ote might be different from the original. [facility] Echocardiography Lab Out-Patient Transesophageal Echo-Cardiogram IDENTIFYING DATA [...] drug use. Current Medications: Ms. Morton @[facility]@ Checklist: + Dysphagia, + Esophageal diverticula, [...] by the nurse. Time out performed. T [facility] Notes Date/Time Note Provider Source 2024-12-03 15:46:44 Access Center: EPIC Open Encounter Maintenance Encounter closed for EPIC maintenance. No activity on this encounter in the past 72 hours. Dorota Ramirez RN, BSN Access Center Triage Nurse [facility] KMAKER Dorota Ramirez RN [facility] 2024-10-21 17:03:52 Appointment 11/03/24 Will send two week supply. I Castellanos RN [facility] 2024-10-17 16:37:23 Refill request for Requested Prescriptions Pending Prescriptions Disp Refills midodrine 2.5 mg tablet 270 tablet 1 Sig: Take 1 tablet by mouth in the morning and 1 tablet at noon and 1 tablet in the evening. NACHO 05/07/2023, patient needs an appointment for refills. [facility] 2024-10-17 09:04:45 We can switch to [facility] 2024-10-13 12:04:25 NACHO 10/03/24 NOV 11/25/24 Labs 10/03/24 RX ferrous sulfate 325 mg (65 mg iron) EC tablet 10/09/24 qty 90 2 refills Please advise KMAKER Brinda Monahan MA [facility] 2024-10-03 11:38:06 Done [facility] 2024-10-03 11:35:[address] note on mychart. Patient seen at clinic today, may return to work 10/04/24 KMAKER ALEXEI-PHYSICIAN STEELWORKER MIDLEVEL PROVIDER [facility] 2024-10-03 11:15:00 Images from the original note were not included. Venipuncture collection performed by clean technique on the right anticubitus. Total of 1 attempts were made. Slight pressure and a bandage/dressing were applied to the site(s). The patient experienced no complications. The following specimens were processed according to instructions and sent to [facility] laboratories per lab order on 10/03/2024 : LT BLUE SST 1 RED LAV 1 PPT DK GREEN (LiHep) DK GREEN (SodH) OSCAR DK BLUE (K2) DK BLUE (S) ACD Blood Culture NIPT/NTD KMAKER [facility] 2024-10-03 10:58:51 Patient is requesting a return to work note be uploaded to My chart I Cavanaugh [facility] 2024-05-03 13:50:23 [facility]2023-09-07 10:55:44 Patient notified Adilene Castellanos RNWestern Reserve HospitalMqmmyo4053-67-93 10:45:48 Letter in EPIC [facility] HospitalImlwhc9058-17-39 10:31:30 Discussed disability with patient, she stated that since everything with her JAYNA came back good shedoes not have a disability. She would like to RTW on 07/03/[address] Biggs Belkis [place] 958273-09-07 10:19:20 Yesterday we received a disability request. Please verify with the patient what her game plan is. If she is returning to work, what should I say in the disability form? Please describe her degree of disability and duration of disability. [place] 332573-09-06 14:40:48 Patient is requesting a return to work note dated July 02, 2023. Please send via [employer]. Desirae MoraTerri [place] 332573-09-06 12:53:46 Supplementary Report of Disability Request received via fax from [facility] and placed in Dr Biggs's folder to be reviewed and signed. Shonda Andrade MATer[place] 332573-09-06 09:07:08 Cooper Morton is a 37 year old female Christine calling from [facility] She is wanting to confirm procedures Please call her [phone] Livia GonsalezTerri [place] 332573-09-01 11:51:15 Spoke with patient , She was able to speak with Colette Swift, all is taken care of Belkis Wilder [place] 958273-08-25 23:23:42 Pt given printed and verbal discharge [...] in no apparent distress, Rebekah Mcqueen [facility] CenterAykcbw8930-59-91 18:56:25 Pt states her left arm feels numb and tingling, denies any other symptoms, ambulatory to triage anddrove herself to ED. Patient states she has hx of TIA. Clif Mittal [facility] CenterHqcyzg3638-58-25 15:57:49 Cooper Morton is a 37 year old female Patient is calling and wanting to speak with Colette Swift and wouldn't state what it was regarding. Please assist [phone] [place] AndradeWestern Reserve HospitalZznttx3017-43-78 17:09:41 Cooper Morton is a 37 year old femalea pt. Calling stating that she has been speaking to Colette Swift and needs a call back please advise. Thank you Shyanne De La Rosa [facility]Oorgjf2846-67-42 09:51:33 NACHO 05/07/23 NOV 06/19/23 " Dizziness [...] patient NSR, low voltage" Adilene Castellanos [facility] CenterTxbryr3824-23-41 16:17:58 Received medical records request from [facility], will send to [place] medical records for them to execute. Reach out to [facility] Medical Records for any updates. T Olive Gee [facility]
[2025-02-03] MEDS ORDERED: ONDANSETRON 4 MG/2 ML VIAL ONE (00:14)
[2025-02-03] MEDS ORDERED: LORazepam 2 MG/ML VIAL ONE (00:14)
[2025-02-03] MEDS ORDERED: KETOROLAC 30 MG/ML INJ ONE (00:15)
[2025-02-03] MEDS ORDERED: droPERidol 5 MG/2 ML VIAL ONE (00:15)
[2025-02-03] MEDS ORDERED: NA CHLORIDE 0.9% 1,000 ML ONE ×2 (00:15→02:51)
[2025-02-03] MEDS ORDERED: METOCLOPRAMIDE 10 MG/2mL INJ ONE (00:15)
[2025-02-03 00:26] LABS: Absolute Basophils 0.1 K/uL (0-0.5); Absolute Monocytes 0.4 K/uL (0.1-1.3); Absolute Neutrophil 4.1 K/uL (1.8-8.0); Eosinophils % 0.1 % (0-4.4); Hematocrit 23.7 % (36.0-45.0); MCH 18.6 pg (27.0-35.0); MCHC 29.4 g/dL (32.0-36.0); MCV 63.3 fL (80-100); MPV 8.4 fL (7.6-11.3); Monocytes % 7.3 % (3.3-12.3); Neutrophils % 73.6 % (41.7-73.7); Platelets 321 thou/uL (152-406); RBC Red Blood Cell Count 3.75 M/uL (3.86-4.86)
[2025-02-03 00:37] LABS: Albumin 3.6 g/dL (3.4-5.0); Albumin/Globulin Ratio 0.9 (1.1-1.8); Anion Gap 8.4 mEq/L (5.0-15.0); Bilirubin Total 0.3 mg/dL (0.2-1.0); Globulin 4.2 g/dL (2.3-3.5); Potassium 4.4 mEq/L (3.5-5.1); Protein, Total 7.8 g/dL (6.4-8.2)
[2025-02-03 01:01] LABS: Anisocytosis 1+; Blood Morphology Comment NOTED (NOT SEEN); Hypochromasia 2+; Microcytosis 2+; Platelet Estimate ADEQ; Polychromasia 1+; White Blood Cell Scan OK (OK)
[2025-02-03 02:41] LABS: Specific Gravity 1.021 (1.005-1.030)
[2025-02-03 02:48] LABS: Specific Gravity 1.021 (1.005-1.030); Sqamous Epithelial <5 /HPF (None Seen); Urine Bacteria >50 /HPF (<20); Urine Bilirubin NEGATIVE (Negative); Urine Blood Negative (Negative); Urine Clarity Turbid (Clear); Urine Color Light-Yellow (Yellow); Urine Culture Reflex Order NOT NEEDED; Urine Glucose TRACE (Negative); Urine Ketones NEGATIVE (Negative); Urine Microscopic Reflex YN ORDER UMIC; Urine Mucus 1+ /HPF (None Seen); Urine Nitrite 2+ (Negative); Urine Protein NEGATIVE (Negative); Urine RBC None Seen /HPF (None Seen); Urine Urobilinogen Normal (Normal); Urine WBC <5 /HPF (<5); Urine pH 5.5 (5.0-7.0)
--- NOTE | 2025-02-03 06:09 | RAD REPORT ---
EXAMINATION: CT ABDOMEN PELVIS WITH IV CONTRAST CLINICAL INDICATION: Female, 39 years old. ABD PAIN TECHNIQUE: CT abdomen and pelvis was performed, after the administration of IV contrast, as per [facility] protocol. Axial, sagittal and coronal reconstructions were obtained. One or more of the following dose reduction techniques were used: Automated exposure control, adjustment of the mA and/o r kV according to patient size, and/or iterative reconstruction. Unless otherwise specified, incidental findings do not require dedicated imaging follow-up. [id number]. COMPARISON: 07/29/2024 FINDINGS: LOWER CHEST: No acute process identified. Normal heart size. UPPER GI: Mamadou-en-Y gastric bypass. LIVER: Hepatomegaly with steatosis GALLBLADDER/BILE DUCTS: Distended but no pericholecystic inflammatory changes. Motion artifact limits evaluation. PANCREAS: No mass, ductal dilation, or eusebio-pancreatic fluid. SPLEEN: Unremarkable. ADRENALS: No adrenal masses. KIDNEYS AND URETERS: No hydronephrosis. Low density and/or too small to characterize renal lesions wh ich are statistically benign.4 mm stone in the right kidney. ABDOMINAL AORTA AND OTHER VESSELS: Normal caliber aorta and IVC. PERITONEUM: Small volume of nonspecific pelvic and right lower quadrant free fluid. LYMPH NODES: No pathologic lymphadenopathy. ABDOMINAL WALL: Unremarkable SMALL BOWEL/COLON: Small bowel has normal course and caliber. No colonic wall thickening or pericolon ic inflammatory changes. Nonvisualized appendix but no secondary signs of acute appendicitis. Moderate formed stool burden could indicate constipation. URINARY BLADDER: Underdistended but grossly unremarkable. REPRODUCTIVE ORGANS: Corpus luteal cyst in the right ovary. MUSCULOSKELETAL: No acute or suspicious osseous abnormality. ADDITIONAL FINDINGS: Body wall edema. IMPRESSION: No acute findings in the abdomen or pelvis. Nonspecific free fluid in the right lower quadrant and pe lvis. This may be physiologic or could be secondary to anasarca. Ancillary findings as noted above. Electronically signed by: Rey Candelaria MD 02/03/2025 06:05 AM CDT Due to temporary technical issues with the PACS/ClearSlide reporting system, reports are being michelle d by the in-house radiologist without review as a courtesy to ensure prompt reporting the interpreting radiologist is fully responsible for the content of the report. Transcribed Date/Time: 02/03/2025 6:09 AM
--- NOTE | 2025-02-03 06:41 | EDPHYS ---
Physician Documentation [facility] Name: Larry Morton Age: 39 yrs Sex: Female : 1985 Arrival Date: 02/02/2025 Time: 22:15 Bed 15 Private MD: ED Physician Eduin Flores HPI: 02/02 22:26 This 39 yrs old Black Female presents to ER via Ambulatory with complaints of Abdominal sp4 Pain. 02/03 20:30 37-year-old female with history of Mamadou-en-Y gastric bypass, additionally anxiety, sp4 hyperlipidemia, TIA, , hypertension, who presents with diffuse abdominal pain associated with nausea with acute onset of pain. Onset of pain reported to be just prior to arrival. Patient's medications at home reported to be iron sulfate, folic acid, aspirin, midodrine.. 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 It has been more than one year since last vaccine. - Infectious Disease History:: Denies. - Social history:: Smoking status: Patient denies any tobacco usage or history of. - Family history:: not pertinent. ROS: 02/03 20:30 Constitutional: Negative for fever, chills, and weight loss, positive abdominal pain, sp4 positive nausea All other systems are negative, Exam: 20:30 Constitutional: This is a well developed, well nourished patient who is awake, alert, sp4 and in no acute distress. Head/Face: Normocephalic, atraumatic. Eyes: Pupils equal round and reactive to light, extra-ocular motions intact. Lids and lashes normal. Conjunctiva and sclera are not injected. Cornea within normal limits. Periorbital areas with no swelling, redness, or edema. ENT: Nares patent. No nasal discharge, no septal abnormalities noted. Tympanic membranes are normal and external auditory canals are clear. Oropharynx with no redness, swelling, or masses, exudates, or evidence of obstruction, uvula midline. Mucous membranes moist. Neck: Trachea midline, no thyromegaly or masses palpated, and no cervical lymphadenopathy. Supple, full range of motion without nuchal rigidity, or vertebral point tenderness. Chest/axilla: Normal chest wall appearance and motion. Nontender with no deformity. No lesions are appreciated. Cardiovascular: Regular rate and rhythm with a normal S1 and S2. No gallops, murmurs, or rubs. Normal PMI, no JVD. No pulse deficits. Respiratory: Lungs have equal breath sounds bilaterally, clear to auscultation and percussion. No rales, rhonchi or wheezes noted. No increased work of breathing, no retractions or nasal flaring. Abdomen/GI: Soft, with normal bowel sounds. Positive diffuse abdominal tenderness moderate, full exam is not possible secondary to involuntary guarding Back: No spinal tenderness. No costovertebral tenderness. Skin: Warm, dry with normal turgor. Normal color with no rashes, no lesions, and no evidence of cellulitis. MS/ Extremity: Pulses equal, no cyanosis. Neurovascular intact. Full, normal range of motion. Neuro: Awake and alert, GCS 15, oriented to person, place, time, and situation. Cranial nerves II-XII grossly intact. Motor strength 5/5 in all extremities. Sensory grossly intact. Psych: Awake, alert, with orientation to person, place and time. Behavior, mood, and affect are within normal limits Vital Signs: 02/02 22:19 BP 94 / 70; Pulse 76; Resp 16; Temp 98.6(O); Pulse Ox 100% on R/A; Weight 90.72 kg; dd2 Height 5 ft. 4 in. ; Pain 1010; 02/03 00:29 BP 102 / 60; Pulse 73; Resp 16; Pulse Ox 100% on R/A; jb4 02:09 BP 114 / 75; Pulse 80; Resp 16; Pulse Ox 99% on R/A; jb4 03:33 BP 106 / 70; Pulse 64; Resp 16; Pulse Ox 100% on R/A; dd2 04:30 BP 103 / 72; Pulse 65; Resp 15; Pulse Ox 100% on R/A; ha1 05:15 BP 111 / 71; Pulse 61; Resp 15; Pulse Ox 100% on R/A; ha1 06:00 BP 114 / 71; Pulse 63; Resp 16; Pulse Ox 99% on R/A; ha1 02/02 22:19 Body Mass Index 34.33 (90.72 kg, 162.56 cm) dd2 02/02 22:19 Pain Scale: Adult dd2 [place] Coma Score: 20:30 Eye Response: spontaneous(4). Motor Response: obeys commands(6). Verbal Response: sp4 oriented(5). Total: 15. MDM: 06:38 ED course: EXAMINATION: CTABDOMEN PELVIS WITH IV CONTRAST CLINICAL INDICATION: Female, sp4 39 years old.ABD PAIN TECHNIQUE: CT abdomen and pelvis was performed, after the administration of IV contrast, as per department protocol. Axial, sagittal and coronal reconstructions were obtained. One or more of the following dose reduction techniques were used: Automated exposure control, adjustment of the mA and/or kV according to patient size, and/or iterative reconstruction. Unless otherwise specified, incidental findings do not require dedicated imaging follow-up. [id number]. COMPARISON: 07/29/2024 FINDINGS: LOWER CHEST: No acute process identified.Normal heart size. UPPER GI: Itba-ks-Ffhvtcch bypass. LIVER: Hepatomegaly with steatosis GALLBLADDER/BILE DUCTS: Distended but no pericholecystic inflammatory changes. Motion artifact limits evaluation. PANCREAS: No mass, ductal dilation, or eusebio-pancreatic fluid. SPLEEN: Unremarkable. ADRENALS: No adrenal masses. KIDNEYS AND URETERS: No hydronephrosis.Low density and/or too small to characterize renal lesions which are statistically benign.4 mm stone in the right kidney. ABDOMINAL AORTA AND OTHER VESSELS: Normal caliber aorta and IVC. PERITONEUM: Small volume of nonspecific pelvic and right lower quadrant free fluid. LYMPH NODES: No pathologic lymphadenopathy. ABDOMINAL WALL: Unremarkable SMALL BOWEL/COLON: Small bowel has normal course and caliber. No colonic wall thickening or pericolonic inflammatory changes.Nonvisualized appendix but no secondary signs of acute appendicitis. Moderate formed stool burden could indicate constipation. URINARYBLADDER: Underdistended but grossly unremarkable. REPRODUCTIVE ORGANS: Corpus luteal cyst in the right ovary. MUSCULOSKELETAL: No acute or suspicious osseous abnormality. ADDITIONAL FINDINGS: Body wall edema. IMPRESSION: No acute findings in the abdomen or pelvis. Nonspecific free fluid in the right lower quadrant and pelvis. This may be physiologic or could be secondary to anasarca. Ancillary findings as noted above.. 06:40 Medical Screening Exam initiated sp4 20:35 Differential diagnosis: gastritis, non-specific abd pain, Ovarian Torsion, sp4 pancreatitis, Peptic Ulcer Disease, Pyelonephritis. Data reviewed: vital signs, nurses notes, old medical records, lab test result(s), radiologic studies, CT scan. Consideration of Admission/Observation Escalation of care including admission/observation considered. ED course: On repeat evaluation patient states pain is still persistent. Patient was informed that no acute surgical findings on CT abdomen pelvis. Patient was offered admission for further evaluation and pain control in the hospital. Patient declined admission and states she would like to get more pain medicine before she is released. Patient has history of Mamadou-en-Y gastric bypass and most likely extensive abdominal adhesions. I will advise follow-up with department mgr and primary care physician. Also there is significant anemia hemoglobin 7.0. ED course: Patient does not have signs of symptomatic anemia, vital signs are stable. 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 Anemia is microcytic with low MCV secondary to chronic blood loss. At this time transfusion is not warranted.. 02/02 22:27 Order name: CBC with Diff; Complete Time: 03:25 sp4 02/02 22:27 Order name: CMP; Complete Time: 03:25 sp4 02/02 22:27 Order name: Lipase; Complete Time: 03:25 sp4 02/02 22:27 Order name: Test, Urine; Complete Time: 03:25 sp4 02/02 22:27 Order name: Urinalysis w/ reflexes; Complete Time: 03:25 sp4 02/03 00:34 Order name: CBC Smear Scan; Complete Time: 03:25 EDMS 02/02 22:32 Order name: CT Abd/Pelvis - IV Contrast Only; Complete Time: 20:26 sp4 02/02 22:27 Order name: IV Saline Lock; Complete Time: 23:59 sp4 02/02 22:27 Order name: Labs collected and sent; Complete Time: 23:59 sp4 Administered Medications: 00:26 Drug: NS 0.9% IV 1000 ml IV at 1 bolus Per protocol; to be given as a bolus over 60 jb4 minutes Route: IV; Rate: 1 bolus; Site: right antecubital; 01:26 Follow up: Response: No adverse reaction; IV Status: Completed infusion; IV Intake: jb4 1000ml 00:26 Drug: Ativan IVP 1 mg IVP once Route: IVP; Site: right antecubital; jb4 01:00 Follow up: Response: No adverse reaction; Marked relief of symptoms jb4 00:26 Drug: Droperidol IVP 2.5 mg IVP once Route: IVP; Site: right antecubital; jb4 01:00 Follow up: Response: No adverse reaction; Marked relief of symptoms jb4 00:27 Drug: Ketorolac IVP 30 mg IVP once Route: IVP; Site: right antecubital; jb4 01:00 Follow up: Response: No adverse reaction; Marked relief of symptoms jb4 00:27 Drug: metoCLOPramide IVP 10 mg IVP once; over 1 to 2 minutes Route: IVP; Site: right jb4 antecubital; 01:00 Follow up: Response: No adverse reaction; Marked relief of symptoms jb4 00:27 Drug: Ondansetron IVP 4 mg IVP once; over 2 minutes Route: IVP; Site: right antecubital;jb4 01:00 Follow up: Response: No adverse reaction; Marked relief of symptoms jb4 03:28 Drug: NS 0.9% IV 1000 ml IV at 1000 ml once; to be given as a bolus over 60 minutes dd2 Route: IV; Rate: 1000 ml; Site: right antecubital; 04:40 Follow up: IV Status: Completed infusion dd2 06:47 Drug: HYDROcodone-acetaminophen PO 5 mg-325 mg 2 tabs PO once Route: PO; dd2 06:54 Follow up: Response: No adverse reaction dd2 06:47 Drug: Promethazine PO 25 mg PO once Route: PO; dd2 06:54 Follow up: Response: No adverse reaction dd2 06:47 Drug: Dicyclomine PO 20 mg PO once Route: PO; dd2 06:54 Follow up: Response: No adverse reaction dd2 06:48 Not Given (Physician Discretion): morphineor iv 4 mg IVP once over 4 mins dd2 Disposition: 20:39 Chart complete. sp4 Disposition Summary: 02/03/25 06:40 Discharge Ordered Notes: Location: Home sp4 Problem: new sp4 Symptoms: have improved sp4 Condition: Stable sp4 Diagnosis - Abdominal pain, Generalized sp4 - Nausea without vomiting sp4 Followup: sp4 - With: Private Physician - When: 7 - 10 days - Reason: Recheck today's complaints Discharge Instructions: - Discharge Summary Sheet sp4 - Abdominal Pain, Adult, [id number] sp4 Forms: - Family Work Release ha1 - Patient Portal Instructions sp4 Prescriptions: - Tramadol 50 mg Oral Tablet - take 1 tablet ORAL route every 8 hours as needed; 12 tablet; Refills: 0, sp4 Product Selection Permitted - promethazine 25 mg Oral Tablet - take 1 tablet ORAL route every 6 hours As needed; 20 tablet; Refills: 0, sp4 Product Selection Permitted - dicyclomine 20 mg Oral tablet - take 2 tablets ORAL route 3 times per day PRN pain; 60 tablet; Refills: 0, sp4 Product Selection Permitted Signatures: Dispatcher [employer] Lonnie Perez, RN RN jb4 Eduin Flores MD MD sp4 CARLOS ALBERTO ZAPIEN RN RN dd2
--- NOTE | 2025-02-03 06:41 | ER ---
Nurse's Notes [facility] Name: Larry Morton Age: 39 yrs Sex: Female : 1985 Arrival Date: 02/02/2025 Time: 22:15 Bed 15 Private MD: Diagnosis: Abdominal pain, Generalized;Nausea without vomiting Presentation: 02/02 22:19 Chief complaint: Patient states: STOMACH PAIN TO THE ENTIRE AREA BEGAN 1 HOUR BEFORE dd2 ARRIVING TO ER. PT STATES WAS LYING IN BED AND BEGAN TO HAVE PAIN. Coronavirus screen: At this time, the client does not indicate any symptoms associated with coronavirus-19. Ebola Screen: No symptoms or risks identified at this time. Initial Sepsis Screen: Does the patient meet any 2 criteria? No. Patient's initial sepsis screen is negative. Does the patient have a suspected source of infection? No. Patient's initial sepsis screen is negative. Risk Assessment: Do you want to hurt yourself or someone else? Patient reports no desire to harm self or others. Onset of symptoms was February 02, 2025. 22:19 Method Of Arrival: Ambulatory dd2 22:19 Acuity: CELESTINO 3 dd2 Triage Assessment: 22:23 General: Appears in no apparent distress. uncomfortable, Behavior is cooperative, dd2 appropriate for age, anxious. Pain: Complains of pain in abdomen Pain does not radiate. Pain currently is 10 out of 10 on a pain scale. GI: Abdomen is non-distended, Abd is soft X 4 quads Abdomen is tender to palpation X 4 quads. Reports lower abdominal pain, upper abdominal pain, nausea. 22:27 EENT: No deficits noted. No signs and/or symptoms were reported regarding the EENT dd2 system. Neuro: Level of Consciousness is awake, alert, obeys commands, Oriented to person, place, time, situation, Appropriate for age. Respiratory: Airway is patent Respiratory effort is even, unlabored, Respiratory pattern is regular, symmetrical. Derm: No deficits noted. No signs and/or symptoms reported regarding the dermatologic system. Skin is healthy with good turgor, Skin is dry, Skin is normal, Skin temperature is warm. Musculoskeletal: Circulation, motion, and sensation intact. Range of motion: intact in all extremities. 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 It has been more than one year since last vaccine. - Infectious Disease History:: Denies. - Social history:: Smoking status: Patient denies any tobacco usage or history of. - Family history:: not pertinent. Screenin/15 00:29 [facility] ED Fall Risk Assessment (Adult) History of falling in the last 3 months, jb4 including since admission No falls in past 3 months (0 pts) Confusion or Disorientation No (0 pts) Intoxicated or Sedated No (0 pts) Impaired Gait No (0 pts) Mobility Assist Device Used No (0 pt) Altered Elimination No (0 pt) Score/Fall Risk Level 0 - 2 = Low Risk Oriented to surroundings, Maintained a safe environment. Abuse screen: Denies threats or abuse. Nutritional screening: No deficits noted. Tuberculosis screening: No symptoms or risk factors identified. Assessment: 00:29 General: Appears in no apparent distress. uncomfortable, Behavior is calm, cooperative, jb4 appropriate for age. Pain: Complains of pain in abdomen Pain does not radiate. Pain currently is 10 out of 10 on a pain scale. Neuro: Level of Consciousness is awake, alert, obeys commands, Oriented to person, place, time, situation. Cardiovascular: Patient's skin is warm and dry. Respiratory: Airway is patent Respiratory effort is even, unlabored, Respiratory pattern is regular, symmetrical. GI: Abdomen is flat, non-distended, Reports lower abdominal pain, upper abdominal pain. Derm: Skin is intact, Skin is pink, warm \T\ dry. Musculoskeletal: Circulation, motion, and sensation intact. Range of motion: intact in all extremities. 02:09 Reassessment: Patient appears in no apparent distress at this time. Patient and/or jb4 family updated on plan of care and expected duration. Pain level reassessed. Patient is alert, oriented x 3, equal unlabored respirations, skin warm/dry/pink. 03:00 Reassessment: Patient appears in no apparent distress at this time. Patient and/or jb4 family updated on plan of care and expected duration. Pain level reassessed. Patient is alert, oriented x 3, equal unlabored respirations, skin warm/dry/pink. Pt to Ct. 03:45 Reassessment: ASSUMED CARE OF PT. PT RESTING QUIETLY, RESPIRATIONS EVEN AND UNLABORED. ha1 ATTEMPTED TO CHECK PT'S PAIN LEVEL, PT IN DEEP SLEEP, OPENS EYES BRIEFLY AND RETURNS TO SLEEP. MORPHINE IVP ON HOLD AT THIS TIME. 05:30 Reassessment: NAD NOTED. PT RESTING QUIETLY. RESPIRATIONS EVEN AND UNLABORED. FAMILY ha1 MEMBER AT BEDSIDE. Vital Signs: 02/02 22:19 BP 94 / 70; Pulse 76; Resp 16; Temp 98.6(O); Pulse Ox 100% on R/A; Weight 90.72 kg; dd2 Height 5 ft. 4 in. ; Pain 10/10; 02/03 00:29 BP 102 / 60; Pulse 73; Resp 16; Pulse Ox 100% on R/A; jb4 02:09 BP 114 / 75; Pulse 80; Resp 16; Pulse Ox 99% on R/A; jb4 03:33 BP 106 / 70; Pulse 64; Resp 16; Pulse Ox 100% on R/A; dd2 04:30 BP 103 / 72; Pulse 65; Resp 15; Pulse Ox 100% on R/A; ha1 05:15 BP 111 / 71; Pulse 61; Resp 15; Pulse Ox 100% on R/A; ha1 06:00 BP 114 / 71; Pulse 63; Resp 16; Pulse Ox 99% on R/A; ha1 02/02 22:19 Body Mass Index 34.33 (90.72 kg, 162.56 cm) dd2 02/02 22:19 Pain Scale: Adult dd2 [place] Coma Score: 20:30 Eye Response: spontaneous(4). Motor Response: obeys commands(6). Verbal Response: sp4 oriented(5). Total: 15. ED Course: 02/02 22:15 Patient arrived in ED. jj6 22:23 Triage completed. dd2 22:23 Arm band placed on right wrist. dd2 22:26 Eduin Flores MD is Attending Physician. sp4 23:19 Radiology exam delayed due to test not completed at this time. nj 23:58 Initial lab(s) drawn, by me, sent to lab. Inserted saline lock: 20 gauge in right rk3 antecubital area, using aseptic technique. Blood collected. Flushed with 10 mL NS. 02/03 00:29 Patient has correct armband on for positive identification. Bed in low position. Call jb4 light in reach. Side rails up X 1. Provided Education on: plan of care. 00:29 No provider procedures requiring assistance completed. jb4 00:43 Radiology exam delayed due to lab results not completed at this time. (HCG) nj test not completed at this time. 03:28 CT Abd/Pelvis - IV Contrast Only In Process Unspecified. EDMS 06:55 IV discontinued, intact, bleeding controlled, No redness/swelling at site. Pressure dd2 dressing applied. Administered Medications: 00:26 Drug: NS 0.9% IV 1000 ml IV at 1 bolus Per protocol; to be given as a bolus over 60 jb4 minutes Route: IV; Rate: 1 bolus; Site: right antecubital; :26 Follow up: Response: No adverse reaction; IV Status: Completed infusion; IV Intake: jb4 1000ml 00:26 Drug: Ativan IVP 1 mg IVP once Route: IVP; Site: right antecubital; jb4 01:00 Follow up: Response: No adverse reaction; Marked relief of symptoms jb4 00:26 Drug: Droperidol IVP 2.5 mg IVP once Route: IVP; Site: right antecubital; jb4 01:00 Follow up: Response: No adverse reaction; Marked relief of symptoms jb4 00:27 Drug: Ketorolac IVP 30 mg IVP once Route: IVP; Site: right antecubital; jb4 01:00 Follow up: Response: No adverse reaction; Marked relief of symptoms jb4 00:27 Drug: metoCLOPramide IVP 10 mg IVP once; over 1 to 2 minutes Route: IVP; Site: right jb4 antecubital; 01:00 Follow up: Response: No adverse reaction; Marked relief of symptoms jb4 00:27 Drug: Ondansetron IVP 4 mg IVP once; over 2 minutes Route: IVP; Site: right antecubital;jb4 01:00 Follow up: Response: No adverse reaction; Marked relief of symptoms jb4 03:28 Drug: NS 0.9% IV 1000 ml IV at 1000 ml once; to be given as a bolus over 60 minutes dd2 Route: IV; Rate: 1000 ml; Site: right antecubital; 04:40 Follow up: IV Status: Completed infusion dd2 06:47 Drug: HYDROcodone-acetaminophen PO 5 mg-325 mg 2 tabs PO once Route: PO; dd2 06:54 Follow up: Response: No adverse reaction dd2 06:47 Drug: Promethazine PO 25 mg PO once Route: PO; dd2 06:54 Follow up: Response: No adverse reaction dd2 06:47 Drug: Dicyclomine PO 20 mg PO once Route: PO; dd2 06:54 Follow up: Response: No adverse reaction dd2 06:48 Not Given (Physician Discretion): morphineor iv 4 mg IVP once over 4 mins dd2 Medication: 00:29 VIS not applicable for this client. jb4 Intake: 01:26 IV: 1000ml; Total: 1000ml. jb4 Outcome: 06:40 Discharge ordered by . sp4 06:55 Discharged to home ambulatory, dd2 06:55 Condition: stable 06:55 Discharge instructions given to patient, Instructed on discharge instructions, follow up and referral plans. medication usage, Demonstrated understanding of instructions, follow-up care, medications, Prescriptions given X 3, 06:55 Patient left the ED. dd2 Signatures: Dispatcher [employer] EDMS Lonnie Ortiz RN RN jb4 Nazario Ratliff Jennifer jj6 Maryan Stout RN RN ha1 Eduin Flores MD MD sp4 CARLOS ALBERTO ZAPIEN RN RN dd2 Sharri Alegria rk3 Corrections: (The following items were deleted from the chart) 00:27 00:26 morphine IVP or IV 4 mg IVP in right antecubital over 4 mins jb4 jb4
[2025-02-03] MEDS ORDERED: HYDROCODONE/APAP 5/325 MG TAB ONE (06:44)
[2025-02-03] MEDS ORDERED: PROMETHAZINE 25 MG TABLET ONE (06:44)
[2025-02-03] MEDS ORDERED: DICYCLOMINE HCL 10 MG CAP ONE (06:44)
[2025-02-03 07:21] VITALS: TEMP 98.6
[2025-02-03 07:42] VITALS: BP 114/71; O2SAT 99
== END 2025-02-03 06:55 | disposition home or self-care (01) ==
LOC: ER 22:15
DX: R10.84 Generalized abdominal pain (principal); R11.2 Nausea with vomiting, unspecified; Z98.84 Bariatric surgery status
CPT/HCPCS: 36415; 74177; 81001; 81025; 85025; J1790; J2405; J2765; J7030; Q0169; Q9967